=== PATIENT | male | born 1950 | race Caucasian/White ===

== ENCOUNTER 2019-04-10 12:02 | Outpatient (CLI) | payer BC ==
[~2019-04-10 12:02] MED LIST: ALBUTEROL NEB 2.5 MG/3 ML INH SCH
== END 2019-04-10 12:03 | disposition home or self-care (01) ==
LOC: RT 12:02
PROVIDERS: ATTEND Internal Medicine
DX: M31.31 Wegener's granulomatosis with renal involvement (principal)
CPT/HCPCS: 94010; 94729

== ENCOUNTER 2021-04-12 11:07 | Outpatient (CLI) | payer MEDICARE ==
[2021-04-12 11:20] LABS: HCT - HEMATOCRIT 23.8 % (42.0-52.0); HGB - HEMOGLOBIN 7.8 g/dL (14.0-18.0); MEAN CORPUSCULAR HEMOGLOBIN 31.2 pg (27.0-31.0); MEAN CORPUSCULAR HGB CONC 32.8 g/dL (32.0-36.0); MEAN CORPUSCULAR VOLUME 95.2 fL (80.0-94.0); MEAN PLATELET VOLUME 12.2 fL (7.4-11.4); NEUTROPHILS % (AUTO) 61.1 %; RED BLOOD COUNT 2.5 10^6/uL (4.70-6.10); RED CELL DISTRIBUTION WIDTH 14.8 % (12.0-15.0)
[2021-04-12 11:23] LABS: WHITE BLOOD COUNT 1.6 x10^3/uL (4.8-10.8)
== END 2021-04-12 11:08 | disposition home or self-care (01) ==
LOC: LAB.R 11:07
PROVIDERS: ATTEND Internal Medicine Hematology & Oncology
DX: D61.818 Other pancytopenia (principal)
CPT/HCPCS: 85027; 86850; 86900; 86901; 86920

== ENCOUNTER 2021-04-19 11:56 | Outpatient (CLI) | payer MEDICARE ==
[2021-04-19 12:08] LABS: EOSINOPHILS % (AUTO) 1.2 %; HCT - HEMATOCRIT 23.6 % (42.0-52.0); HGB - HEMOGLOBIN 7.7 g/dL (14.0-18.0); LYMPHOCYTES % (AUTO) 11.1 %; MEAN CORPUSCULAR HEMOGLOBIN 31.3 pg (27.0-31.0); MEAN CORPUSCULAR HGB CONC 32.6 g/dL (32.0-36.0); MEAN CORPUSCULAR VOLUME 95.9 fL (80.0-94.0); MEAN PLATELET VOLUME 10.5 fL (7.4-11.4); MONOCYTES % (AUTO) 14.6 %; NEUTROPHILS % (AUTO) 64.3 %; RED BLOOD COUNT 2.46 10^6/uL (4.70-6.10)
[2021-04-19 12:23] LABS: PLT - PLATELET COUNT 24 10^3/uL (130-450); WHITE BLOOD COUNT 1.7 x10^3/uL (4.8-10.8)
[2021-04-19 12:25] LABS: ABNORMAL LYMPHS % (MANUAL) 0 %
[2021-04-19 13:14] LABS: BAND NEUTROPHILS % (MANUAL) 6 %; LYMPHOCYTES # (MANUAL) 0.1 10^3/uL (1.5-3.5); LYMPHOCYTES % (MANUAL) 7 %; MONOCYTES # (MANUAL) 0.2 10^3/uL (0.0-1.0); NEUTROPHILS # (MANUAL) 1.4 10^3/uL (1.5-6.6); PLATELET ESTIMATE, MANUAL DECREASED (<130,000) (NORMAL); PLATELET MORPHOLOGY NORMAL APPEARANCE (NORMAL); RBC MORPHOLOGY (MULTIPLE) NORMAL APPEARANCE (NORMAL); REACTIVE LYMPHS % (MANUAL) 1 %
[2021-04-19 13:15] LABS: DIFFERENTIAL COMMENT MANUAL DIFFERENTIAL
== END 2021-04-19 11:57 | disposition home or self-care (01) ==
LOC: LAB 11:56
PROVIDERS: ATTEND Internal Medicine Hematology & Oncology
DX: D61.818 Other pancytopenia (principal)
CPT/HCPCS: 36415; 85025; 86850; 86870; 86900; 86901

== ENCOUNTER 2021-04-22 11:05 | Outpatient (CLI) | payer MEDICARE ==
[2021-04-22 11:16] LABS: EOSINOPHILS % (AUTO) 0.5 %; HCT - HEMATOCRIT 24.3 % (42.0-52.0); LYMPHOCYTES # (AUTO) 0.2 10^3/uL (1.5-3.5); LYMPHOCYTES % (AUTO) 10.5 %; MEAN CORPUSCULAR HEMOGLOBIN 31.4 pg (27.0-31.0); MEAN CORPUSCULAR HGB CONC 32.9 g/dL (32.0-36.0); MEAN CORPUSCULAR VOLUME 95.3 fL (80.0-94.0); MEAN PLATELET VOLUME 9.7 fL (7.4-11.4); MONOCYTES # (AUTO) 0.3 10^3/uL (0.0-1.0); MONOCYTES % (AUTO) 14.7 %; NEUTROPHILS # (AUTO) 1.3 10^3/uL (1.5-6.6); NEUTROPHILS % (AUTO) 66.4 %; NRBC ABSOLUTE COUNT (AUTO) 0.03 x10^3/uL; NUCLEATED RED BLOOD CELLS AUTO 1.6 /100WBC; RED BLOOD COUNT 2.55 10^6/uL (4.70-6.10); RED CELL DISTRIBUTION WIDTH 15.2 % (12.0-15.0)
[2021-04-22 11:25] LABS: WHITE BLOOD COUNT 1.9 x10^3/uL (4.8-10.8)
[2021-04-22 11:26] LABS: PLT - PLATELET COUNT 14 10^3/uL (130-450)
[2021-04-22 12:21] LABS: SLIDE REVIEW? Indicated
[2021-04-22 12:23] LABS: DIFFERENTIAL COMMENT MANUAL=AUTO DIFF; PLATELET ESTIMATE, MANUAL DECREASED (<130,000) (NORMAL); RBC MORPHOLOGY (MULTIPLE) NORMAL APPEARANCE (NORMAL)
== END 2021-04-22 11:06 | disposition home or self-care (01) ==
LOC: LAB.R 11:05
PROVIDERS: ATTEND Internal Medicine Hematology & Oncology
DX: D61.818 Other pancytopenia (principal)
CPT/HCPCS: 85025

== ENCOUNTER 2021-06-24 11:19 | Inpatient (IN) | payer MEDICARE, OTHER ==
[2021-06-24] MEDS ORDERED: ACETAMINOPHEN 500 MG TABLET PO STA (12:03)
--- NOTE | 2021-06-24 12:13 | ED Physician Documentation ---
History of Present Illness - Stated complaint Stated Complaint: FEVER - Chief complaint Chief Complaint: Fever - History obtained from History obtained from: Patient - Additonal information Additional information: 70-year-old gentleman with history of MDS/AML status post stem cell transplant at the [facility] in October of last year followed by Danyelle Valdes. He is otherwise generally healthy with the exception of some chemotherapy related cardiomyopathy, he does not know his ejection fraction. 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 He also has chronic kidney disease, diabetes, and a history of Danitza's granulomatosis. He has a right chest wall PowerPort in place. He developed a fever this morning, up to 101 at home and noted to be 39.6 Celsius here. He feels very well despite this, he denies sore throat, runny nose, cough, shortness of breath, abdominal pain, diarrhea, rash, or urinary complaints. Review of Systems Ten Systems: 10 systems reviewed and negative Constitutional: reports: Fever, Chills. denies: Myalgias, Fatigue Cardiac: denies: Chest pain / pressure, Palpitations Respiratory: denies: Dyspnea, Cough GI: denies: Abdominal Pain, Nausea, Vomiting, Diarrhea PD PAST MEDICAL HISTORY - Past Medical History Past Medical History: Yes Cardiovascular: Coronary artery disease, Atrial fibrillation Other Past Medical History: AML - Present Medications Home Medications: Ambulatory Orders Medication Instructions Recorded Confirmed Dapsone 50 mg PO BID 03/30/21 04/27/21 Metoprolol Succinate [Toprol Xl] 100 mg PO UD 03/30/21 06/15/21 Rosuvastatin Calcium [Crestor] 5 mg PO DAILY 03/30/21 04/27/21 Tamsulosin HCl [Flomax] 0.4 mg PO DAILY 03/30/21 04/27/21 Valacyclovir HCl [Valtrex] 500 mg PO BID 03/30/21 04/27/21 Voriconazole 250 mg PO Q12H 03/30/21 04/27/21 Cholecalciferol [Vitamin D3] 5,000 unit PO DAILY 03/31/21 04/27/21 Magnesium Oxide 1,200 mg PO TID 03/31/21 04/27/21 Omeprazole 20 mg PO DAILY 03/31/21 04/27/21 diltiaZEM CD [Cardizem Cd] 180 mg PO DAILY 03/31/21 04/27/21 glipiZIDE [Glucotrol] 2.5 mg PO DAILY 03/31/21 04/27/21 predniSONE [Deltasone] 30 mg PO DAILY 03/31/21 04/27/21 ursodioL [Ursodiol] 500 mg PO BIDWM 03/31/21 04/27/21 Calcium Carbonate/Vitamin D3 1 each PO 06/15/21 [Calcium 600-Vit D3 200 Tablet] Multivitamin/Iron/Folic Acid 1 each PO 06/15/21 [Certavite-Antioxidant Tablet] Ofloxacin [Ocuflox] 5 ml OP DAILY PM 06/15/21 06/15/21 Prednisolone Acetate/Pf 5 ml OP DAILY 06/15/21 06/15/21 [Prednisolone Acet 1% Eye Drop] - Allergies Allergies/Adverse Reactions: Allergies Allergy/AdvReac Type Severity Reaction Status Date / Time No Known Drug Allergies Allergy Verified 06/24/21 11:26 - Social History Does the pt smoke?: No Smoking Status: Never smoker PD ED PE NORMAL - Vitals Vital signs reviewed: Yes - General General: Alert and oriented X 3, No acute distress - HEENT HEENT: Other (Eye patch on the left eye) - Neck Neck: Supple, no meningeal sign, No bony TTP - Cardiac Cardiac: RRR, No murmur - Respiratory Respiratory: No respiratory distress, Clear bilaterally - Abdomen Abdomen: Normal bowel sounds, Soft, Non tender - Back Back: No CVA TTP, No spinal TTP - Derm Derm: No rash, Other (PowerPort right upper chest wall nontender and without signs of infection) - Extremities Extremities: No edema, No calf tenderness / cord - Neuro Neuro: Alert and oriented X 3, Normal speech - Psych Psych: Normal mood, Normal affect Results - Vitals Vitals: Vital Signs - 24 hr 06/24/21 06/24/21 06/24/21 11:26 11:38 13:35 Temperature 39.6 C H 38.3 C H Heart Rate 89 89 72 Respiratory 18 20 18 Rate Blood Pressure 131/61 H 94/52 L O2 Saturation 95 96 93 Oxygen O2 Source Room air - Labs Labs: Laboratory Tests 06/24/21 06/24/21 06/24/21 12:12 12:12 12:12 WBC 1.0 L* RBC 2.90 L Hgb 9.5 L Hct 28.1 L MCV 96.9 H MCH 32.8 H MCHC 33.8 RDW 23.9 H Plt Count 42 L MPV 10.3 Neut # (Auto) Not Reportable Lymph # (Auto) Not Reportable [place] # (Auto) Not Reportable Eos # (Auto) Not Reportable Baso # (Auto) Not Reportable Absolute Nucleated RBC Not Reportable Total Counted 100 Band Neuts % (Manual) 7 Abnorm Lymph % (Manual) 0 Metamyelocytes % 1 H Nucleated RBC % Not Reportable Neutrophils # (Manual) 0.4 L* Lymphocytes # (Manual) 0.4 L Monocytes # (Manual) 0.1 Eosinophils # (Manual) 0.0 Basophils # (Manual) 0.0 Differential Comment MANUAL DIFFERENTIAL Platelet Estimate DECREASED (<130,000) Platelet Morphology NORMAL APPEARANCE RBC Morph Micro Appear 2+ ANISOCYTOSIS Sodium 134 L Potassium 4.5 Chloride 99 L Carbon Dioxide 25 Anion Gap 10.0 BUN 34 H Creatinine 1.4 H Estimated GFR (MDRD) 50 L Glucose 96 Lactic Acid 0.9 Calcium 8.9 Total Bilirubin 0.8 AST 22 ALT 16 Alkaline Phosphatase 63 Total Protein 7.6 Albumin 3.7 Globulin 3.9 Albumin/Globulin Ratio 0.9 L Nasal Adenovirus (PCR) Nasal B. parapertussis DNA (PCR) Nasal Coronavir 229E PCR Nasal Coronavir HKU1 PCR Nasal Coronavir NL63 PCR Nasal Coronavir OC43 PCR Nasal Enterovir/Rhinovir PCR Nasal Influenza B PCR Nasal Influenza A PCR Nasal Parainfluen 1 PCR Nasal Parainfluen 2 PCR Nasal Parainfluen 3 PCR Nasal Parainfluen 4 PCR Nasal RSV (PCR) Nasal B.pertussis DNA PCR Nasal C.pneumoniae (PCR) Jamie Human Metapneumo PCR Nasal M.pneumoniae (PCR) Nasal SARS-CoV-2 (PCR) 06/24/21 12:42 WBC RBC Hgb Hct MCV MCH MCHC RDW Plt Count MPV Neut # (Auto) Lymph # (Auto) [place] # (Auto) Eos # (Auto) Baso # (Auto) Absolute Nucleated RBC Total Counted Band Neuts % (Manual) Abnorm Lymph % (Manual) Metamyelocytes % Nucleated RBC % Neutrophils # (Manual) Lymphocytes # (Manual) Monocytes # (Manual) Eosinophils # (Manual) Basophils # (Manual) Differential Comment Platelet Estimate Platelet Morphology RBC Morph Micro Appear Sodium Potassium Chloride Carbon Dioxide Anion Gap BUN Creatinine Estimated GFR (MDRD) Glucose Lactic Acid Calcium Total Bilirubin AST ALT Alkaline Phosphatase Total Protein Albumin Globulin Albumin/Globulin Ratio Nasal Adenovirus (PCR) NOT DETECTED Nasal B. parapertussis DNA (PCR) NOT DETECTED Nasal Coronavir 229E PCR NOT DETECTED Nasal Coronavir HKU1 PCR NOT DETECTED Nasal Coronavir NL63 PCR NOT DETECTED Nasal Coronavir OC43 PCR NOT DETECTED Nasal Enterovir/Rhinovir PCR NOT DETECTED Nasal Influenza B PCR NOT DETECTED Nasal Influenza A PCR NOT DETECTED Nasal Parainfluen 1 PCR NOT DETECTED Nasal Parainfluen 2 PCR NOT DETECTED Nasal Parainfluen 3 PCR NOT DETECTED Nasal Parainfluen 4 PCR NOT DETECTED Nasal RSV (PCR) NOT DETECTED Nasal B.pertussis DNA PCR NOT DETECTED Nasal C.pneumoniae (PCR) NOT DETECTED Jamie Human Metapneumo PCR NOT DETECTED Nasal M.pneumoniae (PCR) NOT DETECTED Nasal SARS-CoV-2 (PCR) NOT DETECTED - Rads (name of study) Single view chest x-ray is clear Radiology: EMP read contemporaneously PD MEDICAL DECISION MAKING - ED course ED course: 70-year-old gentleman presents with fever without a source up to 39.6 here with severe neutropenia with a ANC of 400. Spoke with Misbah León automation controls specialist for Danyelle Ortiz. Agrees with cefepime p BCx x 2. No need for vanco unless cultures + for gram positive. Spoke with Dr. Hall for admission approximately 2:[address] Owusu called back, I told her I had already spoken with Dr. Stapleton but Dr. Churchill had posed the question of whether he should have G- CSF and she opined that he should not based on the fact that he will probably need a bone marrow biopsy soon and that will make this uninterpretable. Plus it will not work. Departure - Departure Disposition: 66 [facility] DC/Xfer Clinical Impression: Febrile neutropenia Condition: Serious
[2021-06-24 12:21] LABS: HCT - HEMATOCRIT 28.1 % (42.0-52.0); HGB - HEMOGLOBIN 9.5 g/dL (14.0-18.0); LYMPHOCYTES % (AUTO) 31.7 %; MEAN CORPUSCULAR HEMOGLOBIN 32.8 pg (27.0-31.0); MEAN CORPUSCULAR HGB CONC 33.8 g/dL (32.0-36.0); MEAN CORPUSCULAR VOLUME 96.9 fL (80.0-94.0); MEAN PLATELET VOLUME 10.3 fL (7.4-11.4); NEUTROPHILS % (AUTO) 30.8 %; PLT - PLATELET COUNT 42 10^3/uL (130-450); RED CELL DISTRIBUTION WIDTH 23.9 % (12.0-15.0)
[2021-06-24 12:26] LABS: ABNORMAL LYMPHS % (MANUAL) 0 %
[2021-06-24] MEDS ORDERED: CEFEPIME 2 GM in SODIUM CHLORIDE 0.9% MINIBAG 100 ML IV STA (12:27)
[2021-06-24 12:34] LABS: ALBUMIN 3.7 g/dL (3.2-5.5); ALBUMIN/GLOBULIN RATIO 0.9 (1.0-2.2); BILIRUBIN,TOTAL 0.8 mg/dL (0.2-1.0); CALCIUM 8.9 mg/dL (8.5-10.3); CREATININE 1.4 mg/dL (0.6-1.2); POTASSIUM 4.5 mmol/L (3.5-5.0); TOTAL PROTEIN 7.6 g/dL (6.7-8.2)
[2021-06-24 12:44] LABS: BAND NEUTROPHILS % (MANUAL) 7 %; LYMPHOCYTES # (MANUAL) 0.4 10^3/uL (1.5-3.5); LYMPHOCYTES % (MANUAL) 41 %; METAMYELOCYTES % (MANUAL) 1 %; MONOCYTES # (MANUAL) 0.1 10^3/uL (0.0-1.0); NEUTROPHILS # (MANUAL) 0.4 10^3/uL (1.5-6.6)
[2021-06-24] MEDS ORDERED: SODIUM CHLORIDE 0.9% 1,000 ML IV STA (12:44)
[2021-06-24 12:45] LABS: DIFFERENTIAL COMMENT MANUAL DIFFERENTIAL; PLATELET ESTIMATE, MANUAL DECREASED (<130,000) (NORMAL); PLATELET MORPHOLOGY NORMAL APPEARANCE (NORMAL); RBC MORPHOLOGY (MULTIPLE) 2+ ANISOCYTOSIS (NORMAL)
--- NOTE | 2021-06-24 13:00 | XRAY Report ---
PROCEDURE: Chest 1 View X-Ray INDICATIONS: FUO TECHNIQUE: One view of the chest was acquired. COMPARISON: None. FINDINGS: SUPPORT DEVICES: Right CT injectable ti catheter with tip overlying the low SVC region. LUNGS/PLEURA: No focal consolidation, pleural effusion or space-occupying pneumothorax. MEDIASTINUM: The cardiomediastinal silhouette is within normal limits. BONES/SOFT TISSUES: No acute abnormality. IMPRESSION: 1.No acute cardiopulmonary abnormality. Reviewed by: Werner Harry MD on 06/24/2021 12:59 PM PDT Approved by: Werner Harry MD on 06/24/2021 12:59 PM PDT Station ID: [id number]
[2021-06-24 13:43] LABS: B. PARAPERTUSSIS- RESP PCR PAN NOT DETECTED; B. PERTUSSIS- RESP PCR PANEL NOT DETECTED; C. PNEUMONIAE- RESP PCR PANEL NOT DETECTED; CORONAVIRUS 229E-RESP PCR NOT DETECTED; CORONAVIRUS HKU1-RESP PCR NOT DETECTED; CORONAVIRUS NL63-RESP PCR NOT DETECTED; CORONAVIRUS OC43-RESP PCR NOT DETECTED; HUMAN METAPNEUMOVIRUS NOT DETECTED; INFLUENZA A- RESP PCR PANEL NOT DETECTED; INFLUENZA B - RESP PCR PANEL NOT DETECTED; M. PNEUMONIAE- RESP PCR PANEL NOT DETECTED; PARAINFLUENZA VIRUS 1 NOT DETECTED; PARAINFLUENZA VIRUS 2 NOT DETECTED; PARAINFLUENZA VIRUS 3 NOT DETECTED; PARAINFLUENZA VIRUS 4 NOT DETECTED; RHINOVIRUS/ENTEROVIRUS NOT DETECTED; RSV- RESP PCR PANEL NOT DETECTED; SARS-CoV-2 -RESP PCR PANEL NOT DETECTED
[2021-06-24] MEDS ORDERED: ACETAMINOPHEN 325 MG TABLET PO PRN (14:32)
[2021-06-24] MEDS ORDERED: ONDANSETRON 4 MG/2 ML VIAL IVP PRN (14:32)
[2021-06-24] MEDS ORDERED: METOPROLOL 5 MG/5 ML VIAL IVP PRN (14:41)
[2021-06-24] MEDS ORDERED: SODIUM CHLORIDE 0.9% 1,000 ML IV SCH (15:00)
--- NOTE | 2021-06-24 15:13 | HISTORY & PHYSICAL EXAMINATION ---
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 pt report he developed a fever this morning which was up to 102.7 at home. 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 pt report he has routinely blood work at [facility] [place] and blood transfusion as well. he had blood transfusion and plt transfusion on yesterday. In ER pt was found to have 39.6 degree equal to 103 Fah. Otherwise he feel fine and he denies chest pain, headache, shortness of breath, cough, wheezing, sore throat, runny nose, abdominal pain, nausea, vomiting and diarrhea, dysuria, " I feel very good." Chest x-ray show no acute cardiopulmonary abnormality. Routine laboratory testing in the ER significantly show WBC 1.0, hemoglobin 9.5, platelets 42, Creatinine 1.4. ER provider call patient's oncologist to ask whether add G-CSF for pt's low WBC. Oncologist advise not give pt G-CSF, based on the fact that pt will probably need a bone marrow biopsy soon and G-CSF will make the test result uninterpretable also it will not work. Oncologist also advise to add IV Cefepime at this point until blood culture reveal gram positive bacteria. Discussed the care goal with the patient, pt hope to have full code History - Past Medical History Cardiovascular: reports: Coronary artery disease, Atrial fibrillation MRSA Hx?: No Other Past Medical History: AML - Family & Social History Family History: Mother: , Father: Family History Comment/Other: Patient report his father from cancer at age 70. His mother from major heart problem at age 70 as well. Social History Notes: Patient report he never smoke, he has no alcohol or drug issue Meds/Allgy - Home Medications Home Medications: Ambulatory Orders Medication Instructions Recorded Confirmed Dapsone 50 mg PO BID 03/30/21 06/24/21 Rosuvastatin Calcium [Crestor] 5 mg PO DAILY 03/30/21 06/24/21 Tamsulosin HCl [Flomax] 0.4 mg PO DAILY 03/30/21 06/24/21 Valacyclovir HCl [Valtrex] 500 mg PO BID 03/30/21 06/24/21 Voriconazole 250 mg PO Q12H 03/30/21 06/24/21 Cholecalciferol [Vitamin D3] 5,000 unit PO DAILY 03/31/21 06/24/21 Magnesium Oxide 1,200 mg PO TID 03/31/21 06/24/21 Omeprazole 20 mg PO DAILY 03/31/21 04/27/21 diltiaZEM CD [Cardizem Cd] 180 mg PO DAILY 03/31/21 06/24/21 glipiZIDE [Glucotrol] 2.5 mg PO DAILY 03/31/21 04/27/21 predniSONE [Deltasone] 30 mg PO DAILY 03/31/21 04/27/21 ursodioL [Ursodiol] 500 mg PO BIDWM 03/31/21 06/24/21 Calcium Carbonate/Vitamin D3 1 each PO DAILY 06/15/21 06/24/21 [Calcium 600-Vit D3 200 Tablet] Multivitamin/Iron/Folic Acid 1 each PO DAILY 06/15/21 06/24/21 [Certavite-Antioxidant Tablet] Ofloxacin [Ocuflox] 5 ml OP DAILY PM 06/15/21 06/15/21 Prednisolone Acetate/Pf 5 ml OP DAILY 06/15/21 06/15/21 [Prednisolone Acet 1% Eye Drop] Metoprolol Succinate 100 mg PO BID 06/24/21 06/24/21 - Allergies Allergies/Adverse Reactions: Allergies Allergy/AdvReac Type Severity Reaction Status Date / Time No Known Drug Allergies Allergy Verified 06/24/21 11:26 Review of Systems - Constitutional Constitutional: reports: Fever. denies: Fatigue, Weakness - Eyes Eyes: denies: Pain - Ears, Nose & Throat Ears, Nose & Throat: reports: Other (pt report he can not hear at his right ear). denies: Ear pain - Cardiovascular Cariovascular: denies: Palpitations, Chest pain, Exertional dyspnea, Decr. exercise tolerance - Respiratory Respiratory: denies: Cough, Wheezing, SOB at rest, SOB with exertion - Gastrointestinal Gastrointestinal: denies: Abdominal pain, Diarrhea, Nausea, Vomiting - Genitourinary Genitourinary: denies: Dysuria - Musculoskeletal Musculoskeletal: denies: Muscle pain - Neurological Neurological: denies: Focal weakness, Headache, Dizziness, Numbness, Abnormal gait, Seizures, Slurred speech - Psychiatric Psychiatric: denies: Depression Exam - Vital Signs Vital Signs: Vital Signs x48h Temp Pulse Resp BP Pulse Ox 06/24/21 13:35 38.3 C H 72 18 94/52 L 93 06/24/21 11:38 89 20 96 06/24/21 11:26 39.6 C H 89 18 131/61 H 95 - Physical Exam General Appearance: positive: No acute distress, Alert. negative: Lethargic Eyes Bilateral: positive: Normal inspection, No lid inflammation ENT: positive: ENT inspection nml, No signs of dehydration. negative: Purulent nasal drainage Neck: positive: Nml inspection, Trachea midline. negative: Tracheal deviation Respiratory: positive: Chest non-tender, No respiratory distress. negative: Wheezes Cardiovascular: positive: Regular rate & rhythm, No murmur. negative: Tachycardia, Bradycardia, Systolic murmur Peripheral Pulses: positive: 2+ Abdomen: positive: Non-tender, Nml bowel sounds, No distention. negative: Tenderness Back: positive: Nml inspection Skin: positive: Color nml, Warm, Dry. negative: Cyanosis Extremities: positive: Non-tender, Full ROM, Nml appearance. negative: Pedal edema Neurologic/Psychiatric: positive: Oriented x3, Motor nml, Sensation nml. negative: Weakness, Sensory loss, Facial droop, Slurred/abnml speech, Depressed mood/affect Conclusion/Plan - Problem List (1) Febrile neutropenia Conclusion/Plan: Patient had fever at 103 degree in the ER. Blood culture was already tamie in the ER. Patient's WBC is 1.0, it is likely secondary to patient history of AMLMDS and stem cell transplant. Patient's oncologist advised no G-CSF for patient at this time. Oncologist also advised cefepime for patient until blood culture show positive for gram-positive bacteria. ER already had cefepime for patient, we will continue cefepime, blood cultures are pending, generally intravenous IV fluids for patient, Tylenol as needed for fever control. Resume patient home medication varacyclovir and voriconazole. (2) Pancytopenia Conclusion/Plan: it is likely secondary to patient's history of AMLMDS, stem cell transplant. Pt Had routinely and frequently blood transfusion, patient had blood transfusion on yesterday with platelets transfusion as well. No G-CSF for patient at this time per Oncologist advised. We will continue medical laboratory scientist, continue neutropenia isolation precaution. (3) AML (acute myeloblastic leukemia) Conclusion/Plan: pt has hx of AML/MDS and with stem cell Transplant on 2020. Patient was seen by Dr. Ortiz, his oncologist, 10 days ago. 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 We do not have echo service in the hospital now. Patient had fever. we will generally IV fluids for patient, precaution of fluids overloaded. Resume patient home medication metoprolol, statin. 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 We will have gentle intravenous IV fluids for patient, continue medical laboratory scientist (8) Diffuse pulmonary alveolar hemorrhage Conclusion/Plan: Patient has no pulmonary symptoms, no cough, no wheezing, no short of breathing, Chest x-ray show no pulmonary abnormal. patient is stable for respiratory s tatus, we will resume patient home medication Prednisone, patient may continue follow-up with his mens locker room attendant as outpatient - Lab Results Fish Bones: 06/24/21 12:12 06/24/21 12:12 Core Measures - Anticipated LOS I expect patient to be DC'd or transferred within 96 hours.: Yes - DVT/VTE - Prophylaxis VTE/DVT Device ordered at admit?: Yes VTE/DVT Prophylaxis med ordered at admit?: No
[2021-06-24] MEDS: SODIUM CHLORIDE 0.9% 1,000 ML IV SCH ×2 (17:26→21:39)
[2021-06-24] MEDS: SODIUM CHLORIDE FLUSH 0.9% 10 ML SYRINGE IVP SCH ×2 (17:26→23:23)
[2021-06-24] MEDS: INSULIN ASPART 300 UNIT/3 ML PEN SUBQ SCH ×2 (17:26→20:42)
[2021-06-24 19:47] LABS: BILIRUBIN,URINE NEGATIVE (NEGATIVE); GLUCOSE, URINE (UA) NEGATIVE (NEGATIVE); KETONES,URINE (UA) NEGATIVE (NEGATIVE); LEUKOCYTE ESTERASE, URINE NEGATIVE (NEGATIVE); NITRITE,URINE NEGATIVE (NEGATIVE); OCCULT BLOOD,URINE LARGE (NEGATIVE); PH,URINE 7.5 PH (5.0-7.5); PROTEIN,URINE 100 mg/dL (NEGATIVE); UROBILINOGEN,URINE 0.2 (NORMAL) E.U./dL (NORMAL)
[2021-06-24 19:48] LABS: BACTERIA,URINE None Seen /HPF (None Seen); CLARITY,URINE BLOODY (CLEAR); RBC,URINE TNTC /HPF (0-5); SQUAMOUS EPITHELIAL CELL,UR NONE SEEN (<= Few); WBC,URINE 0-3 /HPF (0-3)
[2021-06-24] MEDS: ATORVASTATIN 10 MG TABLET PO SCH (20:42)
[2021-06-24] MEDS: CEFEPIME 2 GM in SODIUM CHLORIDE 0.9% MINIBAG 100 ML IV SCH (20:42)
[2021-06-24] MEDS: valACYclovir 500 MG TABLET PO SCH (20:42)
[2021-06-24] MEDS ORDERED: METOPROLOL SUCCINATE 50 MG TABLET PO SCH (21:00)
[2021-06-24] MEDS: MAGNESIUM OXIDE 400 MG TABLET PO SCH (21:40)
[2021-06-24] MEDS ORDERED: CARBOXYMETHYLCELLULOSE OPHTH DROPS EACHEYE PRN (22:52)
[2021-06-25 05:24] LABS: BASOPHILS % (AUTO) 1.2 %; EOSINOPHILS % (AUTO) 2.4 %; HCT - HEMATOCRIT 23.1 % (42.0-52.0); HGB - HEMOGLOBIN 7.8 g/dL (14.0-18.0); LYMPHOCYTES % (AUTO) 37.3 %; MEAN CORPUSCULAR HEMOGLOBIN 33.3 pg (27.0-31.0); MEAN CORPUSCULAR HGB CONC 33.8 g/dL (32.0-36.0); MEAN CORPUSCULAR VOLUME 98.7 fL (80.0-94.0); MEAN PLATELET VOLUME 10.3 fL (7.4-11.4); MONOCYTES % (AUTO) 26.5 %; NEUTROPHILS % (AUTO) 31.4 %; RED BLOOD COUNT 2.34 10^6/uL (4.70-6.10); RED CELL DISTRIBUTION WIDTH 23.4 % (12.0-15.0)
[2021-06-25 05:31] LABS: MAGNESIUM 2.3 mg/dL (1.7-2.8)
[2021-06-25 05:39] LABS: PLT - PLATELET COUNT 32 10^3/uL (130-450); WHITE BLOOD COUNT 0.8 x10^3/uL (4.8-10.8)
[2021-06-25 05:41] LABS: ABNORMAL LYMPHS % (MANUAL) 0 %
[2021-06-25 05:59] LABS: BAND NEUTROPHILS % (MANUAL) 7 %; BASOPHILS % (MANUAL) 1 %; LYMPHOCYTES # (MANUAL) 0.3 10^3/uL (1.5-3.5); LYMPHOCYTES % (MANUAL) 37 %; METAMYELOCYTES % (MANUAL) 1 %; MONOCYTES # (MANUAL) 0.1 10^3/uL (0.0-1.0); NEUTROPHILS # (MANUAL) 0.3 10^3/uL (1.5-6.6); PLATELET MORPHOLOGY NORMAL APPEARANCE (NORMAL)
[2021-06-25 06:00] LABS: DIFFERENTIAL COMMENT MANUAL DIFFERENTIAL; PLATELET ESTIMATE, MANUAL DECREASED (<130,000) (NORMAL); WBC MORPHOLOGY (MULTIPLE) NORMAL APPEARANCE (NORMAL)
[2021-06-25] MEDS: MAGNESIUM OXIDE 400 MG TABLET PO SCH ×3 (06:25→21:38)
[2021-06-25] MEDS: PANTOPRAZOLE 40 MG TABLET PO SCH (06:25)
--- NOTE | 2021-06-25 09:12 | PROVIDER PROGRESS NOTE ---
Assessment/Plan - Problem List (1) Febrile neutropenia Assessment/Plan: 06/25 pt is comfortable sleeping. pt has no fever overnight. pt's blood culture is pending. we will continue IV antibiotics, resume pt's home meds for anti-virus and anti-fungal prophylaxis. pt's WBC is 0.8 on today, continue neutropenia protocol at the hospital. pt's port appear clean, disinfected. pt is at high risk of pro-infection and pt has significant immunocompromised. pt has hx of AML/MDS, stem cell transplant, and steroid treatment for his alveolar hemorrhage. Patient had fever at 103 degree in the ER. Blood culture was already tamie in the ER. Patient's WBC is 1.0, it is likely secondary to patient history of AMLMDS and stem cell transplant. Patient's oncologist advised no G-CSF for patient at this time. Oncologist also advised cefepime for patient until blood culture show positive for gram-positive bacteria. ER already had cefepime for patient, we will continue cefepime, blood cultures are pending, generally intravenous IV fluids for patient, Tylenol as needed for fever control. Resume patient home medication varacyclovir and voriconazole. (2) Pancytopenia Conclusion/Plan: 06/25 pt's HGB is 7.8. According to his oncologist recently recommendation. if HGB less than 8, require one unit of irradiated and leukocyte reduced RBC. his WBC is 0.8, no G-CSF for pt per oncologist's recommendation. Plt is 32, above 30, no plt transfusion by oncologist recommendation. pt present dehydration at the admission, no Lasix after transfusion at this point. it is likely secondary to patient's history of AMLMDS, stem cell transplant. Pt Had routinely and frequently blood transfusion, patient had blood transfusion on yesterday with platelets transfusion as well. No G-CSF for patient at this time per Oncologist advised. 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 (3) AML (acute myeloblastic leukemia) Conclusion/Plan: pt has hx of AML/MDS and with stem cell Transplant on 2020. Patient was seen by Dr. Ortiz, his oncologist, 10 days ago. pt may continue to followup with his oncologist (4) A-fib Conclusion/Plan: 06/25 because pt hx of complicated afib which was required Emergent cardioversion in , we will continue tele monitor pt, resume pt's home Cardizem, metoprolol, add IV of metoprolol as needed, continue vital sign closely monitor pt. 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 We do not have echo service in the hospital now. Patient had fever. we will generally IV fluids for patient, precaution of fluids overloaded. 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 creatinine is 1.0 today. hold IVF now, and we will have one unit of blood for pt, continue lab monitor Patient's creatinine is 1.4 on today, patient had creatinine 1.1 before. We will have gentle intravenous IV fluids for patient, continue laboratory clerk (8) Diffuse pulmonary alveolar hemorrhage Conclusion/Plan: Patient has no pulmonary symptoms, no cough, no wheezing, no short of breathing, Chest x-ray show no pulmonary abnormal. patient is stable for respiratory status, we will resume patient home medication Prednisone, patient may continue follow-up with his melter clerk as outpatient - Current Meds Current Meds: Current Medications Generic Name Dose Route Start Last Admin Trade Name Freq PRN Reason Stop Dose Admin Atorvastatin Calcium 10 mg 06/24/21 21:00 06/24/21 20:42 Atorvastatin 10 Mg Tablet PO 10 mg QPM JUJU Administration Cefepime HCl 2 gm/ Sodium 100 mls @ 200 mls/hr 06/24/21 21:00 06/24/21 21:40 Chloride IV Infused BID JUJU Infusion Insulin Aspart 1 - 5 unit 06/24/21 17:00 06/24/21 20:42 Insulin Aspart 300 Unit/3 Ml Pen SUBQ Not Given 0800,1200,1700,2100 JUJU Protocol Magnesium Oxide 1,200 mg 06/24/21 22:00 06/25/21 06:25 Magnesium Oxide 400 Mg Tablet PO 1,200 mg TID JUJU Administration Pantoprazole Sodium 40 mg 06/25/21 07:00 06/25/21 06:25 Pantoprazole 40 Mg Tablet PO 40 mg QDAC JUJU Administration Sodium Chloride 10 ml 06/24/21 17:00 06/24/21 23:23 Sodium Chloride Flush 0.9% 10 Ml Syringe IVP Not Given 0100,0900,1700 JUJU Ursodiol 500 mg 06/24/21 17:00 06/24/21 17:24 Ursodiol 250 Mg Tablet PO 500 mg BIDWM JUJU Administration Valacyclovir HCl 500 mg 06/24/21 21:00 06/24/21 20:42 Valacyclovir 500 Mg Tablet PO 500 mg BID JUJU Administration - Lab Result Fish Bone Diagrams: 06/25/21 05:07 06/25/21 05:07 - Additional Planning My Orders: My Active Orders 06/24/21 14:32 Activity Orders [RC] Q2HR IO [RC] IOSHIFT Incentive Spirometry - RT [RC] TID Initiate Bowel Care Protocol [RC] .protocol Initiate Line Care Protocol [RC] [facility] Initiate Personal Care Protoco [RC] .protocol Oxygen Therapy [RC] .PRN Telemetry- [RC] Q4HR Vital Signs [RC] Q4HR Acetaminophen [Tylenol] 650 mg PO Q4HR PRN Ondansetron Inj [Zofran Inj] 4 mg IVP Q6HR PRN Sodium Chloride Flush 0.9% [Normal Saline Flush 0.9%] 10 ml IVP PRN PRN Code Status [OTHERS] Routine Condition of Patient [OTHERS] Routine DVT Prophylaxis [OTHERS] Routine 06/24/21 14:36 SCDs [RC] [facility] 06/24/21 14:39 Blood Glucose Checks - Eating [RC] 0800,1200,1700,2100 Initiate Hypoglycemia Protocol [RC] .protocol 06/24/21 14:41 Metoprolol Inj [Lopressor Inj] 5 mg IVP Q6H PRN 06/24/21 Dinner Carb-controlled Diet [DIET] 06/24/21 16:48 Neutropenic Management [RC] [facility] 06/24/21 17:00 Insulin Aspart [NovoLOG] 1 - 5 unit SUBQ 0800,1200,1700,2100 Sodium Chloride Flush 0.9% [Normal Saline Flush 0.9%] 10 ml IVP 0100,0900,1700 ursodioL [Doc 250] 500 mg PO BIDWM 06/24/21 21:00 Atorvastatin [Lipitor] 10 mg PO QPM Cefepime 2 gm Sodium Chloride 0.9% Minibag [Normal Saline 0.9% Minibag] 100 ml IV BID valACYclovir [Valtrex] 500 mg PO BID 06/24/21 22:00 Magnesium Oxide [Mag Ox] 1,200 mg PO TID 06/24/21 22:52 Carboxymethylcellulose 1% Opht [Refresh 1% Ophth Drops] 1 drops EACHEYE PRN PRN 06/25/21 05:07 HEMOGLOBIN A1c% [CHEM] DAILYLAB 06/25/21 07:00 Pantoprazole [Protonix] 40 mg PO QDAC Patient Own Med [Patient Own Medication] 1 each PO BIDAC 06/25/21 08:00 Multivitamin W/Minerals [Theragran M] 1 tab PO DAILYWM predniSONE [Deltasone] 30 mg PO DAILYWM 06/25/21 08:03 Transfuse RBCs Leukoreduced [RC] .ONCE 06/25/21 08:13 RBC, LEUKOREDUCED Stat TYPE AND SCREEN Stat 06/25/21 09:00 Metoprolol Succinate [Toprol Xl] 100 mg PO BID Tamsulosin [Flomax] 0.4 mg PO DAILY diltiaZEM CD [Cardizem Cd] 180 mg PO DAILY 06/25/21 Lunch Neutropenic (Low Microbial) Diet [DIET] 06/26/21 05:00 BMP - BASIC METABOLIC PANEL [CHEM] DAILYLAB CBC - COMP BLD CT W/AUTO DIFF [HEME] DAILYLAB MAGNESIUM [CHEM] DAILYLAB 06/27/21 05:00 BMP - BASIC METABOLIC PANEL [CHEM] DAILYLAB CBC - COMP BLD CT W/AUTO DIFF [HEME] DAILYLAB MAGNESIUM [CHEM] DAILYLAB 06/28/21 05:00 BMP - BASIC METABOLIC PANEL [CHEM] DAILYLAB CBC - COMP BLD CT W/AUTO DIFF [HEME] DAILYLAB 06/29/21 05:00 BMP - BASIC METABOLIC PANEL [CHEM] DAILYLAB CBC - COMP BLD CT W/AUTO DIFF [HEME] DAILYLAB 06/30/21 05:00 BMP - BASIC METABOLIC PANEL [CHEM] DAILYLAB CBC - COMP BLD CT W/AUTO DIFF [HEME] DAILYLAB Subjective - Subjective Patient Reports: Resting Comfortably Objective Vital Signs: Vital Signs - 24 hr 06/24/21 06/24/21 06/24/21 11:26 11:38 13:35 Temperature 39.6 C H 38.3 C H Heart Rate 89 89 72 Heart Rate [ Brachial] Respiratory 18 20 18 Rate Blood Pressure 131/61 H 94/52 L Blood Pressure [Left Brachial artery] Blood Pressure [Right Brachial artery] O2 Saturation 95 96 93 06/24/21 06/24/21 06/24/21 15:00 15:42 16:02 Temperature 36.8 C Heart Rate 65 Heart Rate [ 70 Brachial] Respiratory 16 16 Rate Blood Pressure 99/54 L Blood Pressure 99/56 L [Left Brachial artery] Blood Pressure [Right Brachial artery] O2 Saturation 93 97 06/24/21 06/24/21 06/24/21 16:44 20:36 23:24 Temperature 36.5 C 36.4 C L 36.5 C Heart Rate Heart Rate [ 66 64 73 Brachial] Respiratory 14 16 16 Rate Blood Pressure Blood Pressure 102/54 L 112/60 [Left Brachial artery] Blood Pressure 112/64 [Right Brachial artery] O2 Saturation 95 99 96 06/25/21 06/25/21 05:30 07:31 Temperature 36.6 C 36.5 C Heart Rate Heart Rate [ 66 71 Brachial] Respiratory 18 16 Rate Blood Pressure Blood Pressure 109/64 [Left Brachial artery] Blood Pressure 110/66 [Right Brachial artery] O2 Saturation 97 97 Oxygen O2 Source Room air I&O (Last 24 Hrs): Intake and Output Totals x24h 06/23/21 06/24/21 06/25/21 23:59 23:59 23:59 Intake Total 2130 1730 Balance 2130 1730 General: Alert, Oriented x3, Cooperative, No acute distress HEENT: Atraumatic Neck: Supple Lymphatic: no adenopathy Neuro: Alert, Non Focal, Oriented Times 3 Cardiovascular: Regular rate, Normal S1, Normal S2 Respiratory: Chest non-tender, No respiratory distress Abdomen: Normal bowel sounds, Soft Extremities: Normal pulses - Results Results: Laboratory Results WBC 0.8 x10^3/uL (4.8-10.8) L* 06/25/21 05:07 RBC 2.34 10^6/uL (4.70-6.10) L 06/25/21 05:07 Hgb 7.8 g/dL (14.0-18.0) L 06/25/21 05:07 Hct 23.1 % (42.0-52.0) L 06/25/21 05:07 MCV 98.7 fL (80.0-94.0) H 06/25/21 05:07 MCH 33.3 pg (27.0-31.0) H 06/25/21 05:07 MCHC 33.8 g/dL (32.0-36.0) 06/25/21 05:07 RDW 23.4 % (12.0-15.0) H 06/25/21 05:07 Plt Count 32 10^3/uL (130-450) L* 06/25/21 05:07 MPV 10.3 fL (7.4-11.4) 06/25/21 05:07 Neut # (Auto) Not Reportable 06/25/21 05:07 Lymph # (Auto) Not Reportable 06/25/21 05:07 [place] # (Auto) Not Reportable 06/25/21 05:07 Eos # (Auto) Not Reportable 06/25/21 05:07 Baso # (Auto) Not Reportable 06/25/21 05:07 Absolute Nucleated RBC Not Reportable 06/25/21 05:07 Total Counted 100 06/25/21 05:07 Band Neuts % (Manual) 7 % (0-10) 06/25/21 05:07 Abnorm Lymph % (Manual) 0 % 06/25/21 05:07 Metamyelocytes % 1 % (-0) H 06/25/21 05:07 Nucleated RBC % Not Reportable 06/25/21 05:07 Neutrophils # (Manual) 0.3 10^3/uL (1.5-6.6) L* 06/25/21 05:07 Lymphocytes # (Manual) 0.3 10^3/uL (1.5-3.5) L 06/25/21 05:07 Monocytes # (Manual) 0.1 10^3/uL (0.0-1.0) 06/25/21 05:07 Eosinophils # (Manual) 0.0 10^3/uL (0-0.7) 06/25/21 05:07 Basophils # (Manual) 0.0 10^3/uL (0-0.1) 06/25/21 05:07 Differential Comment MANUAL DIFFERENTIAL 06/25/21 05:07 WBC Morphology NORMAL APPEARANCE (NORMAL) 06/25/21 05:07 Platelet Estimate DECREASED (<130,000) (NORMAL) 06/25/21 05:07 Platelet Morphology NORMAL APPEARANCE (NORMAL) 06/25/21 05:07 RBC Morph Micro Appear 1+ MICROCYTOSIS (NORMAL) 2+ ANISOCYTOSIS (NORMAL) 06/25/21 05:07 RBC Morph Micro Appear 1+ MICROCYTOSIS (NORMAL) 2+ ANISOCYTOSIS (NORMAL) 06/25/21 05:07 Sodium 137 mmol/L (135-145) 06/25/21 05:07 Potassium 4.0 mmol/L (3.5-5.0) 06/25/21 05:07 Chloride 104 mmol/L (101-111) 06/25/21 05:07 Carbon Dioxide 25 mmol/L (21-32) 06/25/21 05:07 Anion Gap 8.0 (6-13) 06/25/21 05:07 BUN 29 mg/dL (6-20) H 06/25/21 05:07 Creatinine 1.0 mg/dL (0.6-1.2) 06/25/21 05:07 Estimated GFR (MDRD) 74 (>89) L 06/25/21 05:07 Glucose 88 mg/dL (70-100) 06/25/21 05:07 POC Whole Bld Glucose 112 mg/dL (70 - 100) H 06/25/21 07:22 Lactic Acid 0.9 mmol/L (0.5-2.2) 06/24/21 12:12 Calcium 8.0 mg/dL (8.5-10.3) L 06/25/21 05:07 Magnesium 2.3 mg/dL (1.7-2.8) 06/25/21 05:07 Total Bilirubin 0.8 mg/dL (0.2-1.0) 06/24/21 12:12 AST 22 IU/L (10-42) 06/24/21 12:12 ALT 16 IU/L (10-60) 06/24/21 12:12 Alkaline Phosphatase 63 IU/L (42-121) 06/24/21 12:12 Total Protein 7.6 g/dL (6.7-8.2) 06/24/21 12:12 Albumin 3.7 g/dL (3.2-5.5) 06/24/21 12:12 Globulin 3.9 g/dL (2.1-4.2) 06/24/21 12:12 Albumin/Globulin Ratio 0.9 (1.0-2.2) L 06/24/21 12:12 Urine Color RED/BLOODY 06/24/21 19:08 Urine Clarity BLOODY (CLEAR) 06/24/21 19:08 Urine pH 7.5 PH (5.0-7.5) 06/24/21 19:08 Ur Specific [place] 1.020 (1.002-1.030) 06/24/21 19:08 Urine Protein 100 mg/dL (NEGATIVE) H 06/24/21 19:08 Urine Glucose (UA) NEGATIVE mg/dL (NEGATIVE) 06/24/21 19:08 Urine Ketones NEGATIVE mg/dL (NEGATIVE) 06/24/21 19:08 Urine Occult Blood LARGE (NEGATIVE) H 06/24/21 19:08 Urine Nitrite NEGATIVE (NEGATIVE) 06/24/21 19:08 Urine Bilirubin NEGATIVE (NEGATIVE) 06/24/21 19:08 Urine Urobilinogen 0.2 (NORMAL) E.U./dL (NORMAL) 06/24/21 19:08 Ur Leukocyte Esterase NEGATIVE (NEGATIVE) 06/24/21 19:08 Urine RBC TNTC /HPF (0-5) H 06/24/21 19:08 Urine WBC 0-3 /HPF (0-3) 06/24/21 19:08 Ur Squamous Epith Cells NONE SEEN (<= Few) 06/24/21 19:08 Urine Bacteria None Seen /HPF (None Seen) 06/24/21 19:08 Urine Culture Comments NOT INDICATED 06/24/21 19:08 Nasal Adenovirus (PCR) NOT DETECTED 06/24/21 12:42 Nasal B. parapertussis DNA (PCR) NOT DETECTED 06/24/21 12:42 Nasal Coronavir 229E PCR NOT DETECTED 06/24/21 12:42 Nasal Coronavir HKU1 PCR NOT DETECTED 06/24/21 12:42 Nasal Coronavir NL63 PCR NOT DETECTED 06/24/21 12:42 Nasal Coronavir OC43 PCR NOT DETECTED 06/24/21 12:42 Nasal Enterovir/Rhinovir PCR NOT DETECTED 06/24/21 12:42 Nasal Influenza B PCR NOT DETECTED 06/24/21 12:42 Nasal Influenza A PCR NOT DETECTED 06/24/21 12:42 Nasal Parainfluen 1 PCR NOT DETECTED 06/24/21 12:42 Nasal Parainfluen 2 PCR NOT DETECTED 06/24/21 12:42 Nasal Parainfluen 3 PCR NOT DETECTED 06/24/21 12:42 Nasal Parainfluen 4 PCR NOT DETECTED 06/24/21 12:42 Nasal RSV (PCR) NOT DETECTED 06/24/21 12:42 Nasal B.pertussis DNA PCR NOT DETECTED 06/24/21 12:42 Nasal C.pneumoniae (PCR) NOT DETECTED 06/24/21 12:42 Jamie Human Metapneumo PCR NOT DETECTED 06/24/21 12:42 Nasal M.pneumoniae (PCR) NOT DETECTED 06/24/21 12:42 Nasal SARS-CoV-2 (PCR) NOT DETECTED 06/24/21 12:42 ABX Reporting Has patient been on IV antibiotics over the past 48 hours?: Yes Current Medications - Current Medications Current Medications: Active Medications Acetaminophen (Acetaminophen 325 Mg Tablet) 650 mg PO Q4HR PRN PRN Reason: Pain 1 to 4, or Fever Atorvastatin Calcium (Atorvastatin 10 Mg Tablet) 10 mg PO QPM [facility] Last Admin: 06/24/21 20:42 Dose: 10 mg Carboxymethylcellulose (Carboxymethylcellulose Ophth Drops) 1 drops EACHEYE PRN PRN PRN Reason: Dry Eye Diltiazem HCl (Diltiazem Cd 180 Mg Capsule) 180 mg PO DAILY [facility] Cefepime HCl 2 gm/ Sodium (Chloride) 100 mls @ 200 mls/hr IV BID [facility] Last Infusion: 06/24/21 21:40 Dose: Infused Insulin Aspart (Insulin Aspart 300 Unit/3 Ml Pen) 1 - 5 unit SUBQ 0800,1200,1700,2100 [facility]; Protocol Last Admin: 06/24/21 20:42 Dose: Not Given Magnesium Oxide (Magnesium Oxide 400 Mg Tablet) 1,200 mg PO TID [facility] Last Admin: 06/25/21 06:25 Dose: 1,200 mg Metoprolol Succinate (Metoprolol Succinate 50 Mg Tablet) 100 mg PO BID [facility] Metoprolol Tartrate (Metoprolol 5 Mg/5 Ml Vial) 5 mg IVP Q6H PRN PRN Reason: Tachycardia Multivitamins/Minerals (Multivitamin W/Minerals Tablet) 1 tab PO DAILYWM [facility] Ondansetron HCl (Ondansetron 4 Mg/2 Ml Vial) 4 mg IVP Q6HR PRN PRN Reason: Nausea / Vomiting Pantoprazole Sodium (Pantoprazole 40 Mg Tablet) 40 mg PO QDAC [facility] Last Admin: 06/25/21 06:25 Dose: 40 mg Patient Own Med: Voriconazole [Vfend] 200 Mg Tablet 1 each PO BIDAC [facility] Prednisone (Prednisone 20 Mg Tablet) 30 mg PO DAILYWM [facility] Sodium Chloride (Sodium Chloride Flush 0.9% 10 Ml Syringe) 10 ml IVP PRN PRN PRN Reason: NEEDED PER PROVIDER ORDERS Sodium Chloride (Sodium Chloride Flush 0.9% 10 Ml Syringe) 10 ml IVP 0100,0900,1700 [facility] Last Admin: 06/24/21 23:23 Dose: Not Given Tamsulosin HCl (Tamsulosin 0.4 Mg Capsule) 0.4 mg PO DAILY [facility] Ursodiol (Ursodiol 250 Mg Tablet) 500 mg PO BIDWM [facility] Last Admin: 06/24/21 17:24 Dose: 500 mg Valacyclovir HCl (Valacyclovir 500 Mg Tablet) 500 mg PO BID [facility] Last Admin: 06/24/21 20:42 Dose: 500 mg Dapsone 50 mg PO BID 03/30/21 Rosuvastatin Calcium [Crestor] 5 mg PO DAILY 03/30/21 Tamsulosin HCl [Flomax] 0.4 mg PO DAILY 03/30/21 Valacyclovir HCl [Valtrex] 500 mg PO BID 03/30/21 Voriconazole 250 mg PO Q12H 03/30/21 Cholecalciferol [Vitamin D3] 5,000 unit PO DAILY 03/31/21 Magnesium Oxide 1,200 mg PO TID 03/31/21 Omeprazole 20 mg PO DAILY 03/31/21 diltiaZEM CD [Cardizem Cd] 180 mg PO DAILY 03/31/21 glipiZIDE [Glucotrol] 2.5 mg PO DAILY 03/31/21 predniSONE [Deltasone] 30 mg PO DAILY 03/31/21 ursodioL [Ursodiol] 500 mg PO BIDWM 03/31/21 Calcium Carbonate/Vitamin D3 [Calcium 600-Vit D3 200 Tablet] 1 each PO DAILY 06/15/21 Multivitamin/Iron/Folic Acid [Certavite-Antioxidant Tablet] 1 each PO DAILY 06/15/21 Ofloxacin [Ocuflox] 5 ml OP DAILY PM 06/15/21 Prednisolone Acetate/Pf [Prednisolone Acet 1% Eye Drop] 5 ml OP DAILY 06/15/21 Metoprolol Succinate 100 mg PO BID 06/24/21
[2021-06-25] MEDS: INSULIN ASPART 300 UNIT/3 ML PEN SUBQ SCH ×4 (10:38→21:42)
[2021-06-25] MEDS: CEFEPIME 2 GM in SODIUM CHLORIDE 0.9% MINIBAG 100 ML IV SCH ×2 (10:39→20:43)
[2021-06-25] MEDS: predniSONE 20 MG TABLET PO SCH (10:43)
[2021-06-25] MEDS: METOPROLOL SUCCINATE 50 MG TABLET PO SCH ×2 (10:44→21:37)
[2021-06-25] MEDS: diltiaZEM CD 180 MG CAPSULE PO SCH (10:44)
[2021-06-25] MEDS: valACYclovir 500 MG TABLET PO SCH ×2 (10:45→20:42)
[2021-06-25] MEDS: MULTIVITAMIN W/MINERALS TABLET PO SCH (10:45)
[2021-06-25] MEDS: TAMSULOSIN 0.4 MG CAPSULE PO SCH (10:46)
--- NOTE | 2021-06-25 11:27 | PHARMACY PROGRESS NOTE ---
- Best Possible Medication History Admit Date and Time: 06/24/21 1432 Processed by: Pharmacy Medication History completed: Yes Secondary Source(s): Pharmacy records, Insurance records As the person ultimately responsible for medication therapy, providers are able to order a medication from an existing home medication list in [facility] via the "Reconcile Routine" prior to Confirmation of that medication by student support advisor. Such practice is discouraged except when the physician, in their clinical judgment, deems that a medical need exists for a medication without regard to previous use.
[2021-06-25] MEDS: VORICONAZOLE 200 MG PO SCH ×2 (12:41→16:10)
[2021-06-25] MEDS: VORICONAZOLE 50 MG PO SCH ×2 (12:42→16:10)
[2021-06-25] MEDS: SODIUM CHLORIDE FLUSH 0.9% 10 ML SYRINGE IVP SCH ×3 (14:40→21:43)
[2021-06-25] MEDS: ATORVASTATIN 10 MG TABLET PO SCH (20:42)
[2021-06-25] MEDS: SODIUM CHLORIDE FLUSH 0.9% 10 ML SYRINGE IVP PRN (20:44)
[2021-06-26] MEDS: SODIUM CHLORIDE FLUSH 0.9% 10 ML SYRINGE IVP PRN (05:04)
[2021-06-26 05:25] LABS: BASOPHILS % (AUTO) 1.3 %; EOSINOPHILS % (AUTO) 2.5 %; HCT - HEMATOCRIT 26.7 % (42.0-52.0); HGB - HEMOGLOBIN 9.3 g/dL (14.0-18.0); MEAN CORPUSCULAR HEMOGLOBIN 33.7 pg (27.0-31.0); MEAN CORPUSCULAR HGB CONC 34.8 g/dL (32.0-36.0); MEAN CORPUSCULAR VOLUME 96.7 fL (80.0-94.0); MEAN PLATELET VOLUME 9.8 fL (7.4-11.4); MONOCYTES % (AUTO) 26.6 %; NEUTROPHILS % (AUTO) 25.3 %; RED BLOOD COUNT 2.76 10^6/uL (4.70-6.10)
[2021-06-26 05:34] LABS: CALCIUM 8.3 mg/dL (8.5-10.3); CREATININE 0.9 mg/dL (0.6-1.2); MAGNESIUM 2.2 mg/dL (1.7-2.8); POTASSIUM 3.9 mmol/L (3.5-5.0)
[2021-06-26 05:46] LABS: PLT - PLATELET COUNT 28 10^3/uL (130-450); WHITE BLOOD COUNT 0.8 x10^3/uL (4.8-10.8)
[2021-06-26 05:48] LABS: ABNORMAL LYMPHS % (MANUAL) 0 %
[2021-06-26 05:53] LABS: BAND NEUTROPHILS % (MANUAL) 4 %; LYMPHOCYTES # (MANUAL) 0.4 10^3/uL (1.5-3.5); LYMPHOCYTES % (MANUAL) 46 %; MONOCYTES # (MANUAL) 0.2 10^3/uL (0.0-1.0); NEUTROPHILS # (MANUAL) 0.3 10^3/uL (1.5-6.6)
[2021-06-26 05:54] LABS: DIFFERENTIAL COMMENT MANUAL DIFFERENTIAL; PLATELET ESTIMATE, MANUAL DECREASED (<130,000) (NORMAL); PLATELET MORPHOLOGY NORMAL APPEARANCE (NORMAL); RBC MORPHOLOGY (MULTIPLE) 2+ ANISOCYTOSIS (NORMAL); WBC MORPHOLOGY (MULTIPLE) NORMAL APPEARANCE (NORMAL)
[2021-06-26] MEDS: MAGNESIUM OXIDE 400 MG TABLET PO SCH (06:14)
[2021-06-26] MEDS: PANTOPRAZOLE 40 MG TABLET PO SCH (06:14)
[2021-06-26] MEDS: VORICONAZOLE 200 MG PO SCH (06:17)
[2021-06-26] MEDS: VORICONAZOLE 50 MG PO SCH (06:18)
[2021-06-26] MEDS: MULTIVITAMIN W/MINERALS TABLET PO SCH (07:51)
[2021-06-26] MEDS: predniSONE 20 MG TABLET PO SCH (07:51)
[2021-06-26] MEDS: diltiaZEM CD 180 MG CAPSULE PO SCH (07:52)
[2021-06-26] MEDS: valACYclovir 500 MG TABLET PO SCH (07:52)
[2021-06-26] MEDS: TAMSULOSIN 0.4 MG CAPSULE PO SCH (07:52)
[2021-06-26] MEDS: CEFEPIME 2 GM in SODIUM CHLORIDE 0.9% MINIBAG 100 ML IV SCH (07:54)
[2021-06-26] MEDS: METOPROLOL SUCCINATE 50 MG TABLET PO SCH (07:55)
[2021-06-26] MEDS: SODIUM CHLORIDE FLUSH 0.9% 10 ML SYRINGE IVP SCH ×2 (07:55→12:44)
[2021-06-26] MEDS: INSULIN ASPART 300 UNIT/3 ML PEN SUBQ SCH (08:34)
--- NOTE | 2021-06-26 09:06 | Discharge Plan ---
Discharge Plan Problem Reviewed?: Yes Disposition: Home, Self Care Condition: Stable Prescriptions: levoFLOXacin [Levaquin] 750 mg PO QD 5 Days #15 tablet Diet: Diabetic Activity Restrictions: Activity as Tolerated Health Concerns: You were admitted to the hospital because of neutropenic fever. We started you on IV antibiotics and will look for potential source of infection. Everything h as come back negative and you have now been fever free for 48 hours. We will be discharging you home with an oral antibiotic called Levaquin to take for 5 more days. Please follow-up with your oncologist this week. Plan of Treatment: Please take the Levaquin once a day for 5 more days. Please continue with the other prophylactic medications you have previously prescribed such as the for your consult, valacyclovir, ursodiol. We did give you blood and platelet transfusion while you were hospitalized. Please continue to follow-up with Dr. Ortiz for monitoring of your blood counts. Assessment: The patient expressed understanding of the treatment plan. Additional Instructions or Follow Up instructions: Please follow-up with Dr. Ortiz this week. Please return to the emergency department if you develop any fevers, chills, dyspnea. No Smoking: If you smoke, Please STOP! Call for help. Follow-up with: Milton Ortiz MD [Provider Admit Priv/Credential] -
--- NOTE | 2021-06-26 09:13 | DISCHARGE SUMMARY ---
Discharge Summary Admit Date: 06/24/21 Discharge Date: 06/26/21 Discharging Provider: Brodie Hall Code Status: Attempt Resuscitation Condition at Discharge: Stable Discharge Disposition: 01 Home, Self Care - DIAGNOSES Admission Diagnoses: Febrile neutropenia Pancytopenia AML A. fib Diabetes Systolic heart failure Acute on chronic kidney injury Diffuse pulmonary alveolar hemorrhage Discharge Diagnoses with Status of Each Condition: Neutropenic fever - resolved. AML - stable. Pancytopenia - stable. Atrial fibrillation - stable. Type 2 diabetes mellitus - stable. Chronic systolic heart failure - stable. Acute kidney injury - resolved. History of diffuse pulmonary alveolar hemorrhage - stable. 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 pt report he developed a fever this morning which was up to 102.7 at home. 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 pt report he has routinely blood work at [facility] and blood transfusion as well. he had blood transfusion and plt transfusion on yesterday. In ER pt was found to have 39.6 degree equal to 103 Fah. Otherwise he feel fine and he denies chest pain, headache, shortness of breath, cough, wheezing, sore throat, runny nose, abdominal pain, nausea, vomiting and diarrhea, dysuria, " I feel very good." Chest x-ray show no acute cardiopulmonary abnormality. Routine laboratory testing in the ER significantly show WBC 1.0, hemoglobin 9.5, platelets 42, Creatinine 1.4. ER provider call patient's oncologist to ask whether add G-CSF for pt's low WBC. Oncologist advise not give pt G-CSF, based on the fact that pt will probably need a bone marrow biopsy soon and G-CSF will make the test result uninterpretable also it will not work. Oncologist also advise to add IV Cefepime at this point until blood culture reveal gram positive bacteria. Discussed the care goal with the patient, pt hope to have full code - HOSPITAL COURSE Hospital Course: The patient was admitted for neutropenic fever and mild acute kidney injury. He was treated with IV fluids and empiric antibiotics with cefepime IV. There was no obvious source of infection. His urinalysis and chest x-ray were unremarkab le. Blood cultures have been negative for 48 hours. The Port-A-Cath line was without erythema or tenderness. He remained fever free over the next 48 hours. He still remained neutropenic as well as anemic and thrombocytopenic. He was transfused 1 unit of packed red blood cell and platelets as recommended by his oncologist for hemoglobin less than 8 and a platelet count less than 30. The patient felt quite well and requested that he be discharged home if possible. I spoke with the on-call oncologist and they felt it was reasonable to discharge the patient home despite him still being neutropenic with an ANC of 0.3 given he has been fever free without evidence of infection. I discharged the patient on Levaquin 750 mg daily for 5 more days. There were no other changes made to his medications and he will continue the other prophylactic medication such as voriconazole, dapsone, valacyclovir. He will follow up with his oncologist this week. He was encouraged to return to the emergency department if he develops any fever, chills, dyspnea. - ALLERGIES Allergies/Adverse Reactions: Allergies Allergy/AdvReac Type Severity Reaction Status Date / Time No Known Drug Allergies Allergy Verified 06/24/21 11:26 - MEDICATIONS Home Medications: Ambulatory Orders Medication Instructions Recorded Confirmed Dapsone 50 mg PO BID 03/30/21 06/24/21 Rosuvastatin Calcium [Crestor] 5 mg PO DAILY 03/30/21 06/24/21 Tamsulosin HCl [Flomax] 0.4 mg PO DAILY 03/30/21 06/24/21 Valacyclovir HCl [Valtrex] 500 mg PO BID 03/30/21 06/24/21 Voriconazole 250 mg PO Q12H 03/30/21 06/24/21 Cholecalciferol [Vitamin D3] 5,000 unit PO DAILY 03/31/21 06/24/21 Magnesium Oxide 1,200 mg PO TID 03/31/21 06/24/21 diltiaZEM CD [Cardizem Cd] 180 mg PO DAILY 03/31/21 06/24/21 glipiZIDE [Glucotrol] 2.5 mg PO DAILY 03/31/21 06/25/21 predniSONE [Deltasone] 30 mg PO DAILY 03/31/21 06/25/21 ursodioL [Ursodiol] 500 mg PO BIDWM 03/31/21 06/24/21 Calcium Carbonate/Vitamin D3 1 each PO DAILY 06/15/21 06/24/21 [Calcium 600-Vit D3 200 Tablet] Multivitamin/Iron/Folic Acid 1 each PO DAILY 06/15/21 06/24/21 [Certavite-Antioxidant Tablet] Metoprolol Succinate 100 mg PO BID 06/24/21 06/24/21 levoFLOXacin [Levaquin] 750 mg PO QD 5 Days #15 tablet 06/26/21 - PHYSICAL EXAM AT DISCHARGE General Appearance: positive: No acute distress Eyes Bilateral: positive: Other (Left eye patch in place) ENT: positive: ENT inspection nml Neck: positive: Nml inspection Respiratory: positive: No respiratory distress. negative: Wheezes, Rales Cardiovascular: positive: Regular rate & rhythm, No murmur, Other (Port-A-Cath in place over the right chest wall is without erythema or tenderness). negative: Tachycardia Abdomen: positive: Non-tender, No distention. negative: Tenderness Skin: positive: Warm Extremities: positive: No pedal edema Neurologic/Psychiatric: positive: Motor nml. negative: Disoriented to person, Disoriented to place, Disoriented to time Physical Exam Other/Comments: Vital Signs - 24 hr 06/25/21 06/25/21 06/26/21 21:00 23:32 05:12 Temperature 36.8 C 36.9 C 36.8 C Heart Rate Heart Rate [ 67 64 61 Brachial] Respiratory 18 18 17 Rate Blood Pressure Blood Pressure 117/68 102/52 L [Left Brachial artery] Blood Pressure 118/57 L [Right Brachial artery] O2 Saturation 96 97 97 06/26/21 06/26/21 06/26/21 07:42 11:15 12:00 Temperature 36.4 C L 36.7 C 36.9 C Heart Rate 94 Heart Rate [ 55 L 74 Brachial] Respiratory 18 18 18 Rate Blood Pressure 114/68 Blood Pressure 118/66 116/67 [Left Brachial artery] Blood Pressure [Right Brachial artery] O2 Saturation 98 94 06/26/21 12:30 Temperature 36.3 C L Heart Rate 72 Heart Rate [ Brachial] Respiratory 18 Rate Blood Pressure 119/72 Blood Pressure [Left Brachial artery] Blood Pressure [Right Brachial artery] O2 Saturation Oxygen O2 Source Room air - LABS Result Diagrams: 06/26/21 05:07 06/26/21 05:07 - DIAGNOSTIC IMAGING Diagnostic Imaging Results: Final report reviewed - FOLLOW UP Follow Up: He will be following up with his oncologist this week.. - TIME SPENT Time Spent in Discharge (Minutes): 37
[2021-06-26 12:43] VITALS: BP 119/72
== END 2021-06-26 13:13 | disposition home or self-care (01) | DRG 809 ==
LOC: ED 11:19 → MS2 14:32
PROVIDERS: ADMIT Nurse Practitioner Gerontology; ATTEND Internal Medicine
PROC: 30233R1 Transfusion of Nonautologous Platelets into Peripheral Vein, Percutaneous Approach (ICD-10-PCS; principal; 2021-06-26)
DX: D70.9 Neutropenia, unspecified (principal); C92.00 Acute myeloblastic leukemia, not having achieved remission; I50.22 Chronic systolic (congestive) heart failure; N17.9 Acute kidney failure, unspecified; I48.92 Unspecified atrial flutter; Z20.822 Contact with and (suspected) exposure to COVID-19; I42.7 Cardiomyopathy due to drug and external agent; M31.30 Wegener's granulomatosis without renal involvement; R04.89 Hemorrhage from other sites in respiratory passages; I25.10 Atherosclerotic heart disease of native coronary artery without angina pectoris; R50.81 Fever presenting with conditions classified elsewhere; D61.818 Other pancytopenia; D46.9 Myelodysplastic syndrome, unspecified; I48.91 Unspecified atrial fibrillation; E11.22 Type 2 diabetes mellitus with diabetic chronic kidney disease; N18.9 Chronic kidney disease, unspecified; Z79.84 Long term (current) use of oral hypoglycemic drugs; Z79.899 Other long term (current) drug therapy; T45.1X5A Adverse effect of antineoplastic and immunosuppressive drugs, initial encounter; H91.91 Unspecified hearing loss, right ear
CPT/HCPCS: 36415; 71045; 80048; 80053; 81001; 81599; 83605; 83735; 85025; 86850; 86900; 86901; 86920; 87040; 87633; 96361; 96365; 99285; A9270; J7512; P9037; P9040; 83036; 87086

== ENCOUNTER 2021-11-12 10:02 | Outpatient (CLI) | payer MEDICARE, OTHER ==
[2021-11-13 14:08] LABS: FREE TESTOSTERONE(DIRECT) 0.3 pg/mL (6.6-18.1); TESTOSTERONE <3 ng/dL (264-916)
== END 2021-11-12 10:03 | disposition home or self-care (01) ==
LOC: LAB.S 10:02
PROVIDERS: ATTEND Internal Medicine Endocrinology, Diabetes & Metabolism
DX: E29.1 Testicular hypofunction (principal)
CPT/HCPCS: 36415; 84402; 84403

== ENCOUNTER 2021-12-10 12:08 | Outpatient (CLI) | payer MEDICARE, OTHER | END 2021-12-10 12:09 | disposition home or self-care (01) | LOC: DI 12:08 | PROVIDERS: ATTEND Internal Medicine Cardiovascular Disease | DX: I42.9 Cardiomyopathy, unspecified (principal); I34.0 Nonrheumatic mitral (valve) insufficiency | CPT/HCPCS: 93308 ==

== ENCOUNTER 2022-01-19 11:27 | Outpatient (CLI) | payer MEDICARE, OTHER | END 2022-01-19 23:59 | disposition short-term general hospital (02) | LOC: EMS 11:27 | DX: M25.462 Effusion, left knee (principal); M25.562 Pain in left knee; H57.11 Ocular pain, right eye; R60.0 Localized edema; R50.9 Fever, unspecified; R00.0 Tachycardia, unspecified | CPT/HCPCS: A0425; A0427 ==

== ENCOUNTER 2022-02-21 08:00 | Outpatient (CLI) | payer MEDICARE, OTHER ==
[2022-02-21 21:05] LABS: BILIRUBIN,URINE NEGATIVE (NEGATIVE); GLUCOSE, URINE (UA) NEGATIVE (NEGATIVE); KETONES,URINE (UA) NEGATIVE (NEGATIVE); LEUKOCYTE ESTERASE, URINE NEGATIVE (NEGATIVE); NITRITE,URINE NEGATIVE (NEGATIVE); OCCULT BLOOD,URINE LARGE (NEGATIVE); PROTEIN,URINE 100 mg/dL (NEGATIVE); UROBILINOGEN,URINE 0.2 (NORMAL) E.U./dL (NORMAL)
[2022-02-21 21:09] LABS: BACTERIA,URINE Rare /HPF (None Seen); CLARITY,URINE CLOUDY (CLEAR); RBC,URINE TNTC /HPF (0-5); SQUAMOUS EPITHELIAL CELL,UR NONE SEEN (<= Few); WBC,URINE 0-3 /HPF (0-3)
== END 2022-02-21 23:59 | disposition home or self-care (01) ==
LOC: LAB.WCP 08:00
PROVIDERS: ATTEND Internal Medicine
DX: N39.0 Urinary tract infection, site not specified (principal)
CPT/HCPCS: 81001; 87086

== ENCOUNTER 2022-02-21 13:14 | Outpatient (CLI) | payer MEDICARE, OTHER ==
[2022-02-21 13:50] LABS: BASOPHILS % (AUTO) 0.4 %; CALCIUM 9.1 mg/dL (8.5-10.3); CREATININE 1.1 mg/dL (0.6-1.2); CRP - C-REACTIVE PROTEIN 1.7 mg/dL (0-1.0); EOSINOPHILS # (AUTO) 0.1 10^3/uL (0.0-0.7); HCT - HEMATOCRIT 23.4 % (42.0-52.0); HGB - HEMOGLOBIN 7.5 g/dL (14.0-18.0); LYMPHOCYTES # (AUTO) 0.4 10^3/uL (1.5-3.5); MEAN CORPUSCULAR HEMOGLOBIN 32.9 pg (27.0-31.0); MEAN CORPUSCULAR HGB CONC 32.1 g/dL (32.0-36.0); MEAN CORPUSCULAR VOLUME 102.6 fL (80.0-94.0); MEAN PLATELET VOLUME 12.3 fL (7.4-11.4); MONOCYTES # (AUTO) 0.3 10^3/uL (0.0-1.0); MONOCYTES % (AUTO) 12.6 %; NEUTROPHILS # (AUTO) 1.8 10^3/uL (1.5-6.6); NEUTROPHILS % (AUTO) 67.3 %; PLT - PLATELET COUNT 56 10^3/uL (130-450); POTASSIUM 3.9 mmol/L (3.5-5.0); RED BLOOD COUNT 2.28 10^6/uL (4.70-6.10); RED CELL DISTRIBUTION WIDTH 21.3 % (12.0-15.0); WHITE BLOOD COUNT 2.7 x10^3/uL (4.8-10.8)
[2022-02-21 14:03] LABS: PLATELET ESTIMATE, MANUAL DECREASED (<130,000) (NORMAL); PLATELET MORPHOLOGY NORMAL APPEARANCE (NORMAL); SLIDE REVIEW? Indicated
== END 2022-02-21 13:15 | disposition home or self-care (01) ==
LOC: LAB.R 13:14
DX: N39.0 Urinary tract infection, site not specified (principal)
CPT/HCPCS: 80048; 81001; 85025; 85651; 86140; 87086

== ENCOUNTER 2022-02-27 08:00 | Outpatient (CLI) | payer MEDICARE, OTHER ==
[2022-02-27 17:49] LABS: B. PARAPERTUSSIS- RESP PCR PAN NOT DETECTED; B. PERTUSSIS- RESP PCR PANEL NOT DETECTED; C. PNEUMONIAE- RESP PCR PANEL NOT DETECTED; CORONAVIRUS 229E-RESP PCR NOT DETECTED; CORONAVIRUS HKU1-RESP PCR NOT DETECTED; CORONAVIRUS NL63-RESP PCR NOT DETECTED; CORONAVIRUS OC43-RESP PCR NOT DETECTED; HUMAN METAPNEUMOVIRUS NOT DETECTED; INFLUENZA A- RESP PCR PANEL NOT DETECTED; INFLUENZA B - RESP PCR PANEL NOT DETECTED; M. PNEUMONIAE- RESP PCR PANEL NOT DETECTED; PARAINFLUENZA VIRUS 1 NOT DETECTED; PARAINFLUENZA VIRUS 2 NOT DETECTED; PARAINFLUENZA VIRUS 3 NOT DETECTED; PARAINFLUENZA VIRUS 4 NOT DETECTED; RHINOVIRUS/ENTEROVIRUS NOT DETECTED; RSV- RESP PCR PANEL NOT DETECTED
[2022-02-27 17:51] LABS: SARS-CoV-2 -RESP PCR PANEL DETECTED
== END 2022-02-27 23:59 | disposition home or self-care (01) ==
LOC: LAB.R 08:00
PROVIDERS: ATTEND Internal Medicine
DX: U07.1 COVID-19 (principal)
CPT/HCPCS: 87633

== ENCOUNTER 2022-03-01 11:08 | Outpatient (CLI) | payer MEDICARE, OTHER | END 2022-03-01 11:09 | disposition critical access hospital (66) | LOC: EMS 11:08 | DX: U07.1 COVID-19 (principal); I95.9 Hypotension, unspecified; R53.1 Weakness | CPT/HCPCS: A0425; A0429 ==

== ENCOUNTER 2022-03-01 11:14 | Emergency (ER) | payer MEDICARE, OTHER ==
--- NOTE | 2022-03-01 11:45 | ED Physician Documentation ---
PD HPI MAJOR TRAUMA - Stated complaint Stated Complaint: HYPOTENSION/C+/ABD PX - Chief complaint Chief Complaint: Cardiac - History obtained from History obtained from: Patient, EMS - Additional information Additional information: 71-year-old gentleman with complicated past medical history including Danitza's granulomatosis, myelodysplastic syndrome status post stem cell transplant, and more recently it sounds like he had an infection in the left knee and had an antibiotic eluding plates placed there and because of that has been at [facility] for the last month or so. His main complaint is that since he has been at the he has been unable to irrigate his nose. 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 The equipment is not available at the and he feels chronically congested now and because of that has poor taste and smell. He developed COVID according to the chart yesterday was started on pack Slo-Bid. Today he was noted to be hypotensive down into the high 80s over 50s range. He feels weak but states this is not acute, its been going on for the last month, he denies dizziness. He did have a fall, he was ambulating with his walker and got dizzy and fell. He does not think he passed out, but he does complain of pain of the right lower chest and right upper abdomen after the fall, he does not know if he hit his walker on the way down or the ground. From COVID perspective he denies fevers, chills, body aches. He is not short of breath. Also on exam I note that his left knee is swollen and warm with good range of motion. He states this is improving. Review of Systems Ten Systems: 10 systems reviewed and negative Constitutional: reports: Fatigue. denies: Fever, Chills Cardiac: reports: Palpitations. denies: Chest pain / pressure Respiratory: denies: Dyspnea, Cough PD PAST MEDICAL HISTORY - Past Medical History Cardiovascular: Coronary artery disease, Atrial fibrillation - Present Medications Home Medications: Ambulatory Orders Medication Instructions Recorded Confirmed Rosuvastatin Calcium [Crestor] 10 mg PO DAILY 03/30/21 12/28/21 Tamsulosin HCl [Flomax] 0.4 mg PO DAILY 03/30/21 12/28/21 Valacyclovir HCl [Valtrex] 500 mg PO BID 03/30/21 12/28/21 Magnesium Oxide 1,200 mg PO BID 03/31/21 12/28/21 predniSONE [Deltasone] 8 mg PO DAILY 03/31/21 12/28/21 Calcium Carbonate/Vitamin D3 1 each PO DAILY 06/15/21 12/28/21 [Calcium 600-Vit D3 200 Tablet] Multivitamin/Iron/Folic Acid 1 each PO DAILY 06/15/21 12/28/21 [Certavite-Antioxidant Tablet] Metoprolol Succinate 100 mg PO BID 06/24/21 12/28/21 Apixaban [Eliquis] 2.5 mg PO BID 11/09/21 12/28/21 - Allergies Allergies/Adverse Reactions: Allergies Allergy/AdvReac Type Severity Reaction Status Date / Time No Known Drug Allergies Allergy Verified 11/16/21 14:47 - Social History Does the pt smoke?: No Smoking Status: Never smoker PD ED PE NORMAL - Vitals Vital signs reviewed: Yes - General General: Alert and oriented X 3, No acute distress - HEENT HEENT: Other (Chronic deformity of the nose and abnormality of the left eye that he states are chronic.) - Neck Neck: Supple, no meningeal sign, No bony TTP - Cardiac Cardiac: RRR, No murmur - Respiratory Respiratory: No respiratory distress, Clear bilaterally, Other (Tender to the right low chest wall anterior axillary line) - Abdomen Abdomen: Normal bowel sounds, Soft, Other (Mild right upper quadrant tenderness without diffuse tenderness) - Back Back: No CVA TTP, No spinal TTP - Derm Derm: Normal color, Warm and dry - Extremities Extremities: No edema - Neuro Neuro: Alert and oriented X 3, Normal speech Results - Vitals Vitals: Vital Signs - 24 hr 03/01/22 03/01/22 03/01/22 11:25 12:00 12:30 Temperature 37.2 C 37.2 C Heart Rate 73 72 72 Heart Rate [ Monitoring electrodes] Respiratory 12 17 17 Rate Blood Pressure 87/54 L 88/60 L 88/60 L Blood Pressure [Right Brachial artery] O2 Saturation 95 98 98 If not protocol : Oxygen Flow, liters/minute 03/01/22 03/01/22 03/01/22 13:00 13:30 14:00 Temperature Heart Rate 85 76 70 Heart Rate [ Monitoring electrodes] Respiratory 16 14 12 Rate Blood Pressure 98/59 L 98/60 98/52 L Blood Pressure [Right Brachial artery] O2 Saturation 95 100 100 If not protocol : Oxygen Flow, liters/minute 03/01/22 03/01/22 03/01/22 15:00 15:30 16:00 Temperature Heart Rate 72 69 67 Heart Rate [ Monitoring electrodes] Respiratory 12 15 14 Rate Blood Pressure 98/54 L 106/52 L 103/54 L Blood Pressure [Right Brachial artery] O2 Saturation 98 99 95 If not protocol : Oxygen Flow, liters/minute 03/01/22 03/01/22 03/01/22 16:30 16:51 17:00 Temperature 36.7 C 36.5 C Heart Rate 73 68 Heart Rate [ 67 Monitoring electrodes] Respiratory 16 12 16 Rate Blood Pressure 107/55 L 100/52 L Blood Pressure 94/57 L [Right Brachial artery] O2 Saturation 99 99 97 If not protocol : Oxygen Flow, liters/minute 03/01/22 03/01/22 03/01/22 17:13 17:14 17:30 Temperature 36.5 C 36.7 C 36.7 C Heart Rate 70 Heart Rate [ 68 70 Monitoring electrodes] Respiratory 16 14 14 Rate Blood Pressure 91/51 L Blood Pressure 100/52 L 91/51 L [Right Brachial artery] O2 Saturation 97 98 98 If not protocol : Oxygen Flow, liters/minute 03/01/22 03/01/22 03/01/22 18:00 18:30 19:25 Temperature 36.8 C 36.8 C Heart Rate 68 67 Heart Rate [ 67 Monitoring electrodes] Respiratory 15 18 16 Rate Blood Pressure 96/53 L 101/51 L Blood Pressure 100/60 [Right Brachial artery] O2 Saturation 98 98 97 If not protocol 98 : Oxygen Flow, liters/minute 03/01/22 03/01/22 03/01/22 19:26 19:28 19:30 Temperature 36.9 C 36.9 C Heart Rate 69 Heart Rate [ 70 70 Monitoring electrodes] Respiratory 17 14 12 Rate Blood Pressure 96/56 L Blood Pressure 100/60 100/60 [Right Brachial artery] O2 Saturation 96 98 98 If not protocol : Oxygen Flow, liters/minute Oxygen O2 Source Room air - EKG (time done) 1202 Rate: Rate (enter#) (69) Rhythm: NSR Erwin: Normal Intervals: Normal ND QRS: Normal Ischemia: Q waves (inferior). No: ST elevation c/w ischemia, ST depression - Labs Labs: Laboratory Tests 03/01/22 03/01/22 03/01/22 11:50 11:50 11:50 WBC 3.3 L RBC 2.02 L Hgb 6.6 L* Hct 21.4 L MCV 105.9 H MCH 32.7 H MCHC 30.8 L RDW 21.7 H Plt Count 56 L MPV 9.3 Neut # (Auto) 2.4 Lymph # (Auto) 0.4 L [place] # (Auto) 0.4 Eos # (Auto) 0.0 Baso # (Auto) 0.0 Absolute Nucleated RBC 0.00 Nucleated RBC % 0.0 Sodium 132 L Potassium 3.7 Chloride 98 L Carbon Dioxide 25 Anion Gap 9.0 BUN 29 H Creatinine 1.3 H Estimated GFR (MDRD) 54 L Glucose 133 H Lactic Acid 0.9 Calcium 8.4 L Magnesium 1.8 Total Bilirubin 0.5 AST 64 H ALT 62 H Alkaline Phosphatase 69 Total Protein 6.3 L Albumin 2.9 L Globulin 3.4 Albumin/Globulin Ratio 0.9 L Urine Color Urine Clarity Urine pH Ur Specific [place] Urine Protein Urine Glucose (UA) Urine Ketones Urine Occult Blood Urine Nitrite Urine Bilirubin Urine Urobilinogen Ur Leukocyte Esterase Urine RBC Urine WBC Ur Squamous Epith Cells Urine Bacteria Urine Yeast Urine Culture Comments Blood Type Antibody Screen Crossmatch IS Only 03/01/22 03/01/22 11:50 16:40 WBC RBC Hgb Hct MCV MCH MCHC RDW Plt Count MPV Neut # (Auto) Lymph # (Auto) [place] # (Auto) Eos # (Auto) Baso # (Auto) Absolute Nucleated RBC Nucleated RBC % Sodium Potassium Chloride Carbon Dioxide Anion Gap BUN Creatinine Estimated GFR (MDRD) Glucose Lactic Acid Calcium Magnesium Total Bilirubin AST ALT Alkaline Phosphatase Total Protein Albumin Globulin Albumin/Globulin Ratio Urine Color YELLOW Urine Clarity HAZY Urine pH 5.5 Ur Specific [place] 1.010 Urine Protein TRACE Urine Glucose (UA) NEGATIVE Urine Ketones NEGATIVE Urine Occult Blood LARGE H Urine Nitrite NEGATIVE Urine Bilirubin NEGATIVE Urine Urobilinogen 0.2 (NORMAL) Ur Leukocyte Esterase NEGATIVE Urine RBC TNTC H Urine WBC 4-5 Ur Squamous Epith Cells RARE Squamous Urine Bacteria Rare Urine Yeast PRESENT Urine Culture Comments NOT INDICATED Blood Type O POSITIVE Antibody Screen NEGATIVE Crossmatch IS Only See Detail - Rads (name of study) CT of the abdomen without traumatic abnormality. Possible colitis. Radiology: Final report received, EMP read indepedently CT of the head and cervical spine were negative for trauma. Radiology: Final report received, EMP read indepedently CT of the chest PE protocol no acute rib fractures and no PE. Radiology: Final report received, EMP read indepedently PD Medical Decision Making - ED course ED course: 71-year-old gentleman with complicated past medical history including DVT on anticoagulation, stem cell transplant, A. fib presents after a syncopal episode with weakness and hypotension from a SNF. He is newly on paxlovid for COVID starting yesterday. His left knee is warm and swollen but he says this is improving. There is a concern for symptomatic anemia given history of transfusion dependence. 71-year-old gentleman with history of MDS status post stem cell transplant presents with symptomatic hypotension and near syncopal episode today. He fell and is found to be hypotensive here which responded to blood. He is anemic, but he is transfusion dependent so I doubt this is from trauma. He was given 2 units of blood here with improvement in his vital signs. Given the syncope, chest wall injuries, and abdominal tenderness CTA of the chest and CT of the abdomen was done as well as a head and neck CT especially noting that he was anticoagulated without pertinent traumatic findings. Departure - Departure Disposition: 01 Home, Self Care Clinical Impression: Pancytopenia, Symptomatic anemia, Ground-level fall, Near syncope, Adequate anticoagulation on anticoagulant therapy, COVID Chest wall contusion Qualifiers: Encounter type: initial encounter Laterality: right Qualified Code(s): S20.211A - Contusion of right front wall of thorax, initial encounter Abdominal wall contusion Qualifiers: Encounter type: initial encounter Qualified Code(s): S30.1XXA - Contusion of abdominal wall, initial encounter Hypotension Qualifiers: Hypotension type: unspecified hypotension type Qualified Code(s): I95.9 - Hypotension, unspecified Condition: Good Record reviewed to determine appropriate education?: Yes Instructions: ED Contusion Chest Wall Comments: Your hemoglobin today was 6.6 and your hematocrit was 21.4. We gave you 2 units of blood with improvement in your blood pressure. Given the fall, and apparent injuries to the chest and abdominal wall CTs of the head, neck, chest, and abdomen were done without traumatic findings. Return for new or worsening symptoms. Follow-up with your oncologist in a week or 2.
[2022-03-01 12:09] LABS: EOSINOPHILS % (AUTO) 0.3 %; HCT - HEMATOCRIT 21.4 % (42.0-52.0); LYMPHOCYTES # (AUTO) 0.4 10^3/uL (1.5-3.5); LYMPHOCYTES % (AUTO) 13.1 %; MEAN CORPUSCULAR HEMOGLOBIN 32.7 pg (27.0-31.0); MEAN CORPUSCULAR HGB CONC 30.8 g/dL (32.0-36.0); MEAN CORPUSCULAR VOLUME 105.9 fL (80.0-94.0); MEAN PLATELET VOLUME 9.3 fL (7.4-11.4); MONOCYTES # (AUTO) 0.4 10^3/uL (0.0-1.0); MONOCYTES % (AUTO) 13.1 %; NEUTROPHILS # (AUTO) 2.4 10^3/uL (1.5-6.6); NEUTROPHILS % (AUTO) 73.2 %; PLT - PLATELET COUNT 56 10^3/uL (130-450); RED BLOOD COUNT 2.02 10^6/uL (4.70-6.10); RED CELL DISTRIBUTION WIDTH 21.7 % (12.0-15.0); WHITE BLOOD COUNT 3.3 x10^3/uL (4.8-10.8)
[2022-03-01 12:14] LABS: HGB - HEMOGLOBIN 6.6 g/dL (14.0-18.0)
[2022-03-01 12:17] LABS: ALBUMIN 2.9 g/dL (3.2-5.5); ALBUMIN/GLOBULIN RATIO 0.9 (1.0-2.2); BILIRUBIN,TOTAL 0.5 mg/dL (0.2-1.0); CALCIUM 8.4 mg/dL (8.5-10.3); CREATININE 1.3 mg/dL (0.6-1.2); MAGNESIUM 1.8 mg/dL (1.7-2.8); POTASSIUM 3.7 mmol/L (3.5-5.0); TOTAL PROTEIN 6.3 g/dL (6.7-8.2)
[2022-03-01] MEDS ORDERED: iohexoL-300 100 ML VIAL ONE (12:24)
--- NOTE | 2022-03-01 13:18 | CT Report ---
PROCEDURE: HEAD WO INDICATIONS: head inj TECHNIQUE: Noncontrast 4.5 mm thick angled axial sections acquired from the foramen magnum to the vertex. For r adiation dose reduction, the following was used: automated exposure control, adjustment of mA and/or kV according to patient size. COMPARISON: Correlation is made with the accompanying CT examinations FINDINGS: Image quality: Motion artifact is noted. CSF spaces: Basal cisterns are patent. No extra-axial fluid collections. Ventricles are normal in size and shape. Brain: No midline shift. No intracranial masses or hemorrhage. Estrada-white matter interface is norm al. Skull and face: Calvarium and visualized facial bones are intact, without suspicious lesions. Sinuses: No significant active paranasal sinus disease is seen. Mild bilateral mastoid air cell fluid can be seen. Apparent prior antrectomy changes are partially seen. Please correlate with known patient history. IMPRESSION: Motion limited study, without a spike, acute intracranial abnormality. No intracranial hemorrhage is seen. Reviewed by: Landon Thornton MD on 03/01/2022 12:17 PM [facility] Approved by: Landon Thornton MD on 03/01/2022 12:17 PM [facility] Station ID: [id number]
--- NOTE | 2022-03-01 13:20 | CT Report ---
PROCEDURE: CERVICAL SPINE WO INDICATIONS: head inj TECHNIQUE: Noncontrast 3 mm thick sections acquired from the skull base to the T4 level. Sagittal and coronal r eformats were then constructed. For radiation dose reduction, the following was used: automated exp osure control, adjustment of mA and/or kV according to patient size. COMPARISON: Correlation is made with the accompanying CT examinations, 03/01/2022. FINDINGS: Image quality: Excellent. Bones: No fractures or dislocations. Visualized superior ribs are intact. Generalized degenerative changes are seen, including moderate disc space narrowing at C3-C4, C4-C5, a nd C5-C6. Moderate to severe disc space narrowing can be seen at C6-C7. Partial bridging anterior ost eophytes are seen at least C4-C7. Focal degenerative change can also be seen involving the C1-C2 inte rface anteriorly. Soft tissues: Prevertebral soft tissues are normal in thickness. No paravertebral hematomas. No ap ical pneumothoraces. A right-sided central line is partially seen. Atherosclerotic calcification is seen. IMPRESSION: Negative for acute cervical spine fracture. Additional findings: Degenerative changes, worst at C6-C7 Right-sided central line Reviewed by: Landon Thornton MD on 03/01/2022 12:19 PM [facility] Approved by: Landon Thornton MD on 03/01/2022 12:19 PM [facility] Station ID: [id number]
--- NOTE | 2022-03-01 13:27 | CT Report ---
PROCEDURE: ABDOMEN/PELVIS W INDICATIONS: abd inj CONTRAST: Omni 300 100ml TECHNIQUE: After the administration of IV contrast, 5 mm thick sections acquired from the diaphragms to the symp hysis. 5 mm thick coronal and sagittal reformats were acquired. For radiation dose reduction, the f ollowing was used: automated exposure control, adjustment of mA and/or kV according to patient size. COMPARISON: Correlation is made with the accompanying CT examinations, 03/01/2022. FINDINGS: Image quality: Excellent. ABDOMEN: Lung bases: Lung bases are clear. Heart size is normal. Advanced coronary artery calcification can be seen. A central line is seen, with the tip near the cavoatrial junction. Solid organs: Liver and spleen are normal in size and enhancement. Gallbladder demonstrates gallsto paty within its lumen. Biliary system is non dilated. Pancreas enhances normally. No adrenal nodule s. Kidneys demonstrate normal size and enhancement, without hydronephrosis. Low-density left renal cyst s are seen, the largest seen inferiorly and anteriorly measuring 2.6 cm. Peritoneum and bowel: Focal fatty stranding can be seen adjacent to the splenic flexure of the colon . Diverticulosis can be seen within this region. Diverticulosis is seen elsewhere. There is a relativ tommie long segment of moderate wall thickening involving the entire descending colon and proximal sigmo id colon. The proximal colon demonstrates no significant abnormality. No free air or significant free fluid can be seen. A loculated abscess can be seen. No dilated loops of small bowel are seen. A normal appendix is incidentally noted. The stomach is relatively decompressed. Nodes and vessels: No retroperitoneal or mesenteric adenopathy by size criteria. Aorta and inferior vena cava are normal in size. Atherosclerotic calcification is seen. Miscellaneous: No ventral hernias. PELVIS: Genitourinary: Bladder wall thickness is normal. Miscellaneous: No inguinal hernias or adenopathy. Bones: No suspicious bony lesions. No acute appearing vertebral body compression fractures. Mild t horacolumbar junction anterior wedge deformities are seen. There is a remote appearing fracture of th e posterior/central aspect of L5, with 20% loss of height. Bilateral pars defects are seen at L5, wit h associated grade 1 L5-S1 anterolisthesis. Focal moderate disc space narrowing can be seen at L5-S1, with a degree of endplate fusion. IMPRESSION: No spike, acute posttraumatic abnormality can be seen. Generalized distal colonic wall thickening can be seen. Fatty scarring can be seen adjacent to the sp lenic flexure of the colon. Please correlate with potential infectious and inflammatory causes of col itis. No findings of perforation or abscess can be seen. Additional findings: Central line tip near the cavoatrial junction Advanced coronary artery calcification Gallstones Simple appearing left renal cysts Scattered mild vertebral body compression deformities Bilateral L5 pars defects, with grade 1 L5-S1 anterolisthesis Focal L5-S1 degenerative change Reviewed by: Landon Thornotn MD on 03/01/2022 12:26 PM [place] Approved by: Landon Thornton MD on 03/01/2022 12:26 PM [facility] [place] Station ID: [id number]
--- NOTE | 2022-03-01 13:31 | CT Report ---
PROCEDURE: ANGIO CHEST W/WO INDICATIONS: Syncope, COVID, chest wall injury CONTRAST: Omni 300 100ml TECHNIQUE: After the administration of intravenous contrast, 2 mm axial images were acquired from the pulmonary apices to the posterior costophrenic angles during the arterial phase. In addition, 1 mm lung kernel and 5 mm soft tissue kernel reconstructions were performed. 3-dimensional coronal oblique maximum int ensity projection (MIP) reformats, 8 mm axial MIP, and 5 mm coronal and sagittal MPR reformats were t hen performed through the thorax. For radiation dose reduction, the following was used: automated exp osure control, adjustment of mA and/or kV according to patient size. COMPARISON: Correlation is made with the accompanying CT examinations as well as prior chest plain f il, 06/24/2021. FINDINGS: Image quality: Excellent. Pulmonary arteries: Pulmonary arteries are normal in size, and demonstrate no intraluminal filling d efects to suggest central pulmonary embolism. Lungs and pleura: Lungs are clear. No pleural effusions or pneumothorax. Central and peripheral ai rways are patent. Mediastinum: The tip of the right-sided chest port can be seen near the cavoatrial junction. Advance d coronary artery calcification can be seen. Heart size is normal, without pericardial effusion. No mediastinal or hilar adenopathy. Thoracic aorta is normal in caliber and enhancement. Esophagus is normal in caliber. There is a small hiatal hernia. Bones and chest wall: No suspicious bony lesions. Remote appearing left lateral and posterior rib fr actures are seen. No acute fractures are detected. Mild chronic lower thoracic spine anterior superio r ribs are seen. Lower cervical spine degenerative changes are noted. No axillary or supraclavicular adenopathy. The thyroid is normal in size and there are no incidental findings. Abdomen: Visualized upper abdominal solid organs appear normal in the early arterial phase of enhanc ement. IMPRESSION: Clear lungs, without focal infiltrates. No acute rib fractures are seen, although note is made of remote lateral and posterior left-sided rib fractures. Negative for pulmonary embolism. Remote appearing lower thoracic spine compression from these, without an acute abnormality identified . Incidental note is made of: Central line tip near the cavoatrial junction Advanced coronary artery calcification Small hiatal hernia Reviewed by: Landon Thornton MD on 03/01/2022 12:30 PM [place] Approved by: Landon Thornton MD on 03/01/2022 12:30 PM [facility] Station ID: [id number]
[2022-03-01] MEDS: iohexoL-300 100 ML VIAL IVP ONE (14:30)
[2022-03-01 16:47] LABS: BILIRUBIN,URINE NEGATIVE (NEGATIVE); CLARITY,URINE HAZY (CLEAR); GLUCOSE, URINE (UA) NEGATIVE (NEGATIVE); KETONES,URINE (UA) NEGATIVE (NEGATIVE); LEUKOCYTE ESTERASE, URINE NEGATIVE (NEGATIVE); NITRITE,URINE NEGATIVE (NEGATIVE); OCCULT BLOOD,URINE LARGE (NEGATIVE); PH,URINE 5.5 PH (5.0-7.5); PROTEIN,URINE TRACE mg/dL (NEGATIVE); UROBILINOGEN,URINE 0.2 (NORMAL) E.U./dL (NORMAL)
[2022-03-01 16:54] LABS: BACTERIA,URINE Rare /HPF (None Seen); RBC,URINE TNTC /HPF (0-5); SQUAMOUS EPITHELIAL CELL,UR RARE Squamous (<= Few)
[2022-03-01 16:55] LABS: YEAST,URINE PRESENT
[2022-03-01 21:59] VITALS: BP 96/62
== END 2022-03-01 22:02 | disposition home or self-care (01) ==
LOC: EDUNIT# → ED 11:14
DX: R55 Syncope and collapse (principal); S20.211A Contusion of right front wall of thorax, initial encounter; S30.1XXA Contusion of abdominal wall, initial encounter; W18.39XA Other fall on same level, initial encounter; Y93.01 Activity, walking, marching and hiking; Y92.129 Unspecified place in nursing home as the place of occurrence of the external cause; D64.9 Anemia, unspecified; I95.9 Hypotension, unspecified; D61.818 Other pancytopenia; U07.1 COVID-19; M31.30 Wegener's granulomatosis without renal involvement; Z79.01 Long term (current) use of anticoagulants
CPT/HCPCS: 36415; 36430; 70450; 71275; 72125; 74177; 80053; 81001; 83605; 83735; 85025; 86850; 86900; 86901; 86920; 87040; 93005; 96374; 99284; 99285; P9040; Q9967; 87086

== ENCOUNTER 2022-03-01 22:03 | Outpatient (CLI) | payer MEDICARE, OTHER | END 2022-03-01 22:04 | disposition home or self-care (01) | LOC: EMS 22:03 | PROVIDERS: ATTEND Emergency Medicine | DX: U07.1 COVID-19 (principal); R55 Syncope and collapse; D64.9 Anemia, unspecified | CPT/HCPCS: A0425; A0428 ==

== ENCOUNTER 2022-03-11 15:00 | Emergency (ER) | payer MEDICARE, OTHER ==
[2022-03-11 15:28] VITALS: BP 111/60
[2022-03-11] MEDS ORDERED: HYDROcod/ACETAM 5/325 MG TABLET PO STA (15:36)
--- NOTE | 2022-03-11 15:37 | ED Physician Documentation ---
PD HPI MAJOR TRAUMA - Stated complaint Stated Complaint: R RIBS PX - Chief complaint Chief Complaint: Trauma Hd/Nk - History obtained from History obtained from: Patient - Additional information Additional information: 71-year-old gentleman with history of Danitza's granulomatosis, myelodysplastic syndrome, and a left knee infection currently at [facility] for rehab. He had fallen a month ago and hit his right side. He is still having persistent pain in the low lateral right Shabnam ribs. He was seen for this and other issues 10 days ago here at which time he had extensive testing including but not limited to CT of the chest, abdomen pelvis, and cervical spine with no findings of trauma. Pain is persistent and severe although he is not taking anything for it. He does have a cough and he did have recent COVID. Denies fevers and is not short of breath. Review of Systems Constitutional: reports: Reviewed and negative Nose: reports: Reviewed and negative Throat: reports: Reviewed and negative Cardiac: reports: Reviewed and negative PD PAST MEDICAL HISTORY - Past Medical History Cardiovascular: Coronary artery disease, Atrial fibrillation - Present Medications Home Medications: Ambulatory Orders Medication Instructions Recorded Confirmed Rosuvastatin Calcium [Crestor] 10 mg PO DAILY 03/30/21 12/28/21 Tamsulosin HCl [Flomax] 0.4 mg PO DAILY 03/30/21 12/28/21 Valacyclovir HCl [Valtrex] 500 mg PO BID 03/30/21 12/28/21 Magnesium Oxide 1,200 mg PO BID 03/31/21 12/28/21 predniSONE [Deltasone] 8 mg PO DAILY 03/31/21 12/28/21 Calcium Carbonate/Vitamin D3 1 each PO DAILY 06/15/21 12/28/21 [Calcium 600-Vit D3 200 Tablet] Multivitamin/Iron/Folic Acid 1 each PO DAILY 06/15/21 12/28/21 [Certavite-Antioxidant Tablet] Metoprolol Succinate 100 mg PO BID 06/24/21 12/28/21 Apixaban [Eliquis] 2.5 mg PO BID 11/09/21 12/28/21 HYDROcod/ACETAM 5/325 [Bridgeton 5/325] 1 - 2 tab PO Q6H PRN #20 tablet 03/11/22 - Allergies Allergies/Adverse Reactions: Allergies Allergy/AdvReac Type Severity Reaction Status Date / Time No Known Drug Allergies Allergy Verified 03/11/22 15:28 - Social History Does the pt smoke?: No Smoking Status: Never smoker PD ED PE NORMAL - Vitals Vital signs reviewed: Yes - General General: Alert and oriented X 3, No acute distress - HEENT HEENT: PERRL, EOMI, Other (Abnormality of the nose, eye patch on the left.) - Neck Neck: Supple, no meningeal sign, No bony TTP - Cardiac Cardiac: RRR, No murmur - Respiratory Respiratory: No respiratory distress, Other (There is some bruising in the mid axillary line that looks a little older, down towards the lower ribs on the right. He is tender underlying these areas. He is coughing occasionally and has some rhonchorous but nonfocal breath sounds.) - Abdomen Abdomen: Non tender - Derm Derm: Normal color, Warm and dry - Extremities Extremities: Other (Knee on the left continuing to be swollen but better than it was 10 days ago. Minimal warmth.) - Neuro Neuro: Alert and oriented X 3, Normal speech Eye Opening: Spontaneous Motor: Obeys Commands Verbal: Oriented GCS Score: 15 Results - Vitals Vitals: Vital Signs - 24 hr 03/11/22 15:22 Temperature 36.6 C Heart Rate 101 H Respiratory 16 Rate Blood Pressure 111/60 O2 Saturation 98 Oxygen O2 Source Room air - Rads (name of study) 2v cxr Radiology: Final report received, EMP read indepedently (NAD) PD Medical Decision Making - ED course ED course: 71-year-old gentleman with persistent right chest wall pain related to a chest wall contusion and has already had negative CT imaging for same. He has a persistent cough and a chest x-ray was checked without pertinent positive findings and he requested some pain control. Departure - Departure Disposition: 01 Home, Self Care Clinical Impression: Chest wall contusion Qualifiers: Encounter type: initial encounter Laterality: right Qualified Code(s): S20.211A - Contusion of right front wall of thorax, initial encounter Cough Qualifiers: Cough type: subacute Qualified Code(s): R05.2 - Subacute cough Condition: Good Record reviewed to determine appropriate education?: Yes Instructions: ED Contusion Chest Wall Follow-Up: Nataly Ibrahim ARNP [Credentialed Staff Provider] - Prescriptions: HYDROcod/ACETAM 5/325 [Bridgeton 5/325] 1 - 2 tab PO Q6H PRN #20 tablet PRN Reason: Pain Comments: We did a CAT scan 10 days ago which did not show any acute rib fractures. We actually have some old rib fractures on the other side. Tonight we also did a chest x-ray to make sure there were no serious changes, there were not. Call your doctor to arrange a follow-up appointment, make the next available appointment. In the interim, return anytime if worse or if new symptoms develop. I sent your prescription to [facility] pharmacy. I am prescribing a short course of narcotic pain medication for you. These are potentially dangerous and addictive medications that should be used carefully. These medications may constipate you. Take an cbym-epb-yapcdze stool softener (docusate) twice daily with plenty of water while taking these medications. If you go 24 hours without a bowel movement, take [id number] miralax, per package instructions. Do not drink or drive while taking these medications. If you received narcotic or sedating medications while in the emergency department, do not drive for 24 hours. Store this medication in a safe, secure place and out of reach of children. It is a violation of federal law to give or sell this medication to another person or to use in a manner other than prescribed. The ED will not refill narcotic prescriptions, including prescriptions lost or stolen. To dispose of unwanted medications: 1. [facility] at [address] in [place] has a medication drop box. They accept prescription medications (in pill form) Monday through Monday 9:00 a.m. to 5:00 p.m. 2. The [facility] [employer] accepts prescription medications (in pill form only) for disposal year round. Call for more information. 3. Contact the [facility] for the next [facility] sponsored prescription drug collection event. , [phone], or [phone]; Note that many narcotic pain relievers also contain Tylenol/acetaminophen. Please ensure that your total dose of acetaminophen from all sources does not exceed 3 g (3000 mg) per day. Discharge Date/Time: 03/11/22 17:32
--- OUTSIDE RECORDS SUMMARY | 2022-03-11 15:37 | EXTERNAL MEDICAL SUMMARY RPT | Continuity of Care Document ---
:1950 Author Organization [facility] Address [address] [place] [address] Phone Care Team Providers Name Role Phone Boo, Provider Unavailable Unavailable Allergies No information. Encounters No information. Functional Status No information. Immunizations No information. Medications date description facility 2021-12-29 00:00 apixaban [facility] 2021-12-29 00:00 prednisone [facility] 2021-12-29 00:00 metoprolol succinate [facility] 2021-12-29 00:00 valacyclovir [facility] 2021-12-29 00:00 apixaban [facility] 2021-12-29 00:00 tamsulosin [facility] 2021-12-29 00:00 apixaban [facility] 2021-12-29 00:00 prednisone [facility] 2021-12-29 00:00 omeprazole [facility] 2021-12-29 00:00 prednisone [facility] 2021-12-29 00:00 prednisone [facility] 2021-12-29 00:00 ofloxacin [facility] 2021-12-29 00:00 valacyclovir [facility] 2021-12-29 00:00 metoprolol succinate [facility] 2021-12-29 00:00 valacyclovir [facility] 2021-12-29 00:00 rosuvastatin [facility] 2021-12-29 00:00 ofloxacin [facility] 2021-12-29 00:00 omeprazole [facility] 2021-12-29 00:00 tamsulosin [facility] 2021-12-29 00:00 ofloxacin [facility] 2021-12-29 00:00 omeprazole [facility] 2021-12-29 00:00 valacyclovir [facility] 2021-12-29 00:00 tamsulosin [facility] 2021-12-29 00:00 omeprazole [facility] 2021-12-29 00:00 rosuvastatin [facility] 2021-12-29 00:00 metoprolol succinate [facility] 2021-12-29 00:00 rosuvastatin [facility] 2021-12-29 00:00 apixaban [facility] 2021-12-29 00:00 rosuvastatin [facility] 2021-12-29 00:00 ofloxacin [facility] 2021-12-29 00:00 tamsulosin [facility] 2021-12-29 00:00 metoprolol succinate [facility] Problems No information. Procedures No information. Results/Labs No information. Social History date description facility 2021-12-29 00:00 Unknown if ever smoked [facility] [place] Vital Signs No information.
--- NOTE | 2022-03-11 16:11 | XRAY Report ---
PROCEDURE: Chest 2 View X-Ray INDICATIONS: cough/rib pain TECHNIQUE: 2 views of the chest were acquired. COMPARISON: None FINDINGS: Surgical changes and devices: Right chest wall port is seen with good positioning of the tip.. Lungs and pleura: No pleural effusions or pneumothorax. Lungs are clear. Mediastinum: Mediastinal contours are normal. Heart size is normal. Bones and chest wall: No suspicious bony abnormalities. There is a healed left sixth rib fracture. Soft tissues appear unremarkable. IMPRESSION: 1. No acute abnormality of the chest. 2. Healed left sixth rib fracture. Reviewed by: Marcin Rivers on 03/11/2022 4:10 PM PST Approved by: Marcin Rivers on 03/11/2022 4:10 PM PST Station ID: [id number]
== END 2022-03-11 17:32 | disposition home or self-care (01) ==
LOC: ED 15:00
DX: S20.211A Contusion of right front wall of thorax, initial encounter (principal); W19.XXXA Unspecified fall, initial encounter; R05.2 Subacute cough; I48.91 Unspecified atrial fibrillation
CPT/HCPCS: 71046; 99283; A9270

== ENCOUNTER 2022-04-02 04:46 | Outpatient (CLI) | payer MEDICARE, OTHER | END 2022-04-02 04:47 | disposition critical access hospital (66) | LOC: EMS 04:46 | DX: K62.5 Hemorrhage of anus and rectum (principal); R53.1 Weakness; R31.9 Hematuria, unspecified; I95.9 Hypotension, unspecified; Z79.01 Long term (current) use of anticoagulants | CPT/HCPCS: A0425; A0427 ==

== ENCOUNTER 2022-04-02 05:23 | Inpatient (IN) | payer MEDICARE, OTHER ==
--- NOTE | 2022-04-02 05:19 | ED Physician Documentation ---
PD HPI GI BLEED - Stated complaint Stated Complaint: RECTAL BLEED - History obtained from History obtained from: Patient, EMS - History of Present Illness Timing - onset: How many days ago (3) Timing - duration: Days Timing - details: Intermittant Pain level now: 8 Associated symptoms: BRBPR. No: Vomiting, Coffee ground emesis, Hematemesis, Maroon stool, Black/tarry stool, Diarrhea, Constipation, Abdominal pain, Fever Contributing factors: Anticoagulated Similar symptoms before: Diagnosis (hemorrhoids) - Additional information Additional information: HPI is from patient. Patient is brought in by ambulance with a chief complaint of 3 days of bright red blood per rectum rectal pain. Patient says he has a long history of hemorrhoids although he does not recall ever having any bleeding from the hemorrhoids nor the amount of pain he has been having the last few days being associated with his hemorrhoids.He has significant past medical history including acute myelogenous leukemia/myelodysplastic syndrome, status post stem cell transplant October 2020, pancytopenia, Right lower extremity DVT for which he is on Eliquis (although the Eliquis dosing is 2.5 mg twice daily due to thrombocytopenia), history of A. fib. Patient says he has had many blood transfusions for his anemia, although he has not required one since August 2021. Patient was given 100 mcg of fentanyl IV by medics with modest improvement in his pain level. Review of Systems Constitutional: denies: Fever GI: reports: Bloody / black stool. denies: Abdominal Pain, Nausea, Vomiting, Constipation, Diarrhea, Hematemesis : reports: Hematuria PD PAST MEDICAL HISTORY - Past Medical History Cardiovascular: Coronary artery disease, Atrial fibrillation - Present Medications Home Medications: Ambulatory Orders Medication Instructions Recorded Confirmed Rosuvastatin Calcium [Crestor] 10 mg PO DAILY 03/30/21 04/02/22 Tamsulosin HCl [Flomax] 0.4 mg PO DAILY 03/30/21 04/02/22 predniSONE [Deltasone] 8 mg PO DAILY 03/31/21 04/02/22 Calcium Carbonate/Vitamin D3 1 each PO DAILY 06/15/21 04/02/22 [Calcium 600-Vit D3 200 Tablet] Metoprolol Succinate 100 mg PO DAILY 06/24/21 04/02/22 Apixaban [Eliquis] 2.5 mg PO BID 11/09/21 04/02/22 Amiodarone [Pacerone] 200 mg PO DAILY 04/02/22 04/02/22 Ofloxacin 0.3% Ophth Drops 1 drops LEFTEYE DAILY 04/02/22 04/02/22 [Ocuflox 0.3% Ophth Drops] prednisoLONE 1% OPHTH DROPS [Pred 1 drops LEFTEYE DAILY 04/02/22 04/02/22 Forte 1% Ophth Drops] - Allergies Allergies/Adverse Reactions: Allergies Allergy/AdvReac Type Severity Reaction Status Date / Time No Known Drug Allergies Allergy Verified 04/02/22 05:30 - Social History Does the pt smoke?: No Smoking Status: Never smoker PD ED PE NORMAL - Vitals Vital signs reviewed: Yes - General General: Alert and oriented X 3, No acute distress, Well developed/nourished - Cardiac Cardiac: RRR - Abdomen Abdomen: Normal bowel sounds, Soft, Non tender, Non distended - Neuro Neuro: Alert and oriented X 3 PD ED PE EXPANDED - Rectal Rectal: Heme Occult Neg - QC+, Hemorrhoid (2-3 left perianal hemorrhoids; no discoloration, soft, reducible and no active bleeding. there is significant excoration adjacent to the hemorrhoids. ), Other (right buttock decubits ulcers , stage II). No: Mass Results - Vitals Vitals: Vital Signs - 24 hr 04/02/22 04/02/22 04/02/22 10:13 10:29 11:56 Temperature 37.0 C 37.2 C 37.2 C Heart Rate Heart Rate [ 97 96 76 Monitoring electrodes] Respiratory 15 15 12 Rate Blood Pressure Blood Pressure 82/40 L 91/47 L 106/59 L [Right Brachial artery] O2 Saturation 99 98 100 04/02/22 04/02/22 04/02/22 11:57 12:58 13:00 Temperature 37.2 C Heart Rate 76 77 Heart Rate [ 77 Monitoring electrodes] Respiratory 13 14 13 Rate Blood Pressure 106/59 L 110/57 L Blood Pressure 110/57 L [Right Brachial artery] O2 Saturation 100 99 100 04/02/22 04/02/22 04/02/22 13:15 14:49 15:00 Temperature 36.9 C 37.2 C Heart Rate 78 Heart Rate [ 80 75 Monitoring electrodes] Respiratory 12 11 L 19 Rate Blood Pressure 129/65 Blood Pressure 109/59 L 115/62 [Right Brachial artery] O2 Saturation 99 100 97 Oxygen O2 Source Room air - Labs Labs: Microbiology 04/02/22 06:06 Occult Blood - Final Stool Laboratory Tests 04/02/22 04/02/22 04/02/22 05:49 05:49 05:49 WBC 2.8 L RBC 1.87 L Hgb 6.3 L* Hct 19.8 L* MCV 105.9 H MCH 33.7 H MCHC 31.8 L RDW 20.5 H Plt Count 40 L MPV 9.6 Neut # (Auto) Not Reportable Lymph # (Auto) Not Reportable Cowley # (Auto) Not Reportable Eos # (Auto) Not Reportable Baso # (Auto) Not Reportable Absolute Nucleated RBC Not Reportable Total Counted 100 Band Neuts % (Manual) 6 Abnorm Lymph % (Manual) 0 Nucleated RBC % Not Reportable Neutrophils # (Manual) 2.1 Lymphocytes # (Manual) 0.6 L Monocytes # (Manual) 0.1 Eosinophils # (Manual) 0.0 Basophils # (Manual) 0.0 Differential Comment MANUAL DIFFERENTIAL WBC Morphology 1+ TOXIC GRANULATION Platelet Estimate DECREASED (<130,000) RBC Morph Micro Appear 1+ OVALOCYTES PT 12.8 H INR 1.2 Sodium Potassium Chloride Carbon Dioxide Anion Gap BUN Creatinine Estimated GFR (MDRD) Glucose Calcium Total Bilirubin AST ALT Alkaline Phosphatase Total Protein Albumin Globulin Albumin/Globulin Ratio Lipase Urine Color Urine Clarity Urine pH Ur Specific [place] Urine Protein Urine Glucose (UA) Urine Ketones Urine Occult Blood Urine Nitrite Urine Bilirubin Urine Urobilinogen Ur Leukocyte Esterase Urine RBC Urine WBC Ur Squamous Epith Cells Urine Bacteria Urine Yeast Ur Microscopic Review Urine Culture Comments SARS-CoV-2 (PCR) Blood Type O POSITIVE Antibody Screen NEGATIVE Crossmatch IS Only See Detail 04/02/22 04/02/22 04/02/22 05:49 11:40 14:53 WBC RBC Hgb Hct MCV MCH MCHC RDW Plt Count MPV Neut # (Auto) Lymph # (Auto) Cowley # (Auto) Eos # (Auto) Baso # (Auto) Absolute Nucleated RBC Total Counted Band Neuts % (Manual) Abnorm Lymph % (Manual) Nucleated RBC % Neutrophils # (Manual) Lymphocytes # (Manual) Monocytes # (Manual) Eosinophils # (Manual) Basophils # (Manual) Differential Comment WBC Morphology Platelet Estimate RBC Morph Micro Appear PT INR Sodium 136 Potassium 3.2 L Chloride 107 Carbon Dioxide 22 Anion Gap 7.0 BUN 23 H Creatinine 1.2 Estimated GFR (MDRD) 60 L Glucose 101 H Calcium 7.9 L Total Bilirubin 0.6 AST 19 ALT 21 Alkaline Phosphatase 63 Total Protein 5.3 L Albumin 2.7 L Globulin 2.6 Albumin/Globulin Ratio 1.0 Lipase 21 L Urine Color RED/BLOODY Urine Clarity TURBID Urine pH 6.0 Ur Specific [place]ell 1.025 Urine Protein >=300 H Urine Glucose (UA) NEGATIVE Urine Ketones NEGATIVE Urine Occult Blood LARGE H Urine Nitrite NEGATIVE Urine Bilirubin NEGATIVE Urine Urobilinogen 0.2 (NORMAL) Ur Leukocyte Esterase NEGATIVE Urine RBC TNTC H Urine WBC 6-10 H Ur Squamous Epith Cells NONE SEEN Urine Bacteria None Seen Urine Yeast PRESENT Ur Microscopic Review INDICATED Urine Culture Comments NOT INDICATED SARS-CoV-2 (PCR) NOT DETECTED Blood Type Antibody Screen Crossmatch IS Only PD Medical Decision Making - ED course Complexity details: reviewed old records, reviewed results, re-evaluated patient, considered differential, d/w patient ED course: Hemorrhoids are noted on exam although there is no active bleeding noted. Hemoccult sent to lab and results guaiac negative although there was no visible stool on gloved finger. He says he has had obvious bright red blood per rectum over the past 3 days associated with perirectal pain. Is a significant anemia on today's blood tests, with hemoglobin of 6.3, down from 8.0 just 5 days ago. 2 units packed red blood cells are Ordered for transfusion but not started at the end of my shift. Patient had received 100 mcg of fentanyl en route from EMS. He is given 75 mcg IV fentanyl in the ED for recurrent rectal pain, followed by 0.5 mg IV Dilaudid. On reevaluation at end of my shift, he says he is finally feeling significant relief of his pain, although it is starting to recur and thus he is given 5 mg p.o. oxycodone which hopefully will provide longer acting relief. I discussed this case with Dr. Mccain ([facility] on-call surgery). He says that, provided patient does not have any more significant bleeding during ER observation and repeat H&H after his transfusions shows appropriate improvement, patient would be appropriate for discharge and can follow-up with Dr. Mccain in his office this coming week. I discussed this plan with the patient and he is comfortable with this plan provided he is given a prescription for something strong for his pain. He says he has had good results with pain relief in the past with oxycodone without untoward side effect including constipation, and thus I provided prescription for the oxycodone. Departure - Departure Disposition: [facility] DC/[place] Clinical Impression: Gross hematuria, Pancytopenia Anemia Qualifiers: Anemia type: other cause Condition: Serious Discharge Date/Time: 04/02/22 18:07
[2022-04-02] MEDS ORDERED: fentaNYL 100 MCG/2 ML VIAL IVP STA (05:45)
[2022-04-02 05:57] LABS: BASOPHILS % (AUTO) 0.4 %; EOSINOPHILS % (AUTO) 0.7 %; LYMPHOCYTES % (AUTO) 12.9 %; MEAN CORPUSCULAR HEMOGLOBIN 33.7 pg (27.0-31.0); MEAN CORPUSCULAR HGB CONC 31.8 g/dL (32.0-36.0); MEAN CORPUSCULAR VOLUME 105.9 fL (80.0-94.0); MEAN PLATELET VOLUME 9.6 fL (7.4-11.4); MONOCYTES % (AUTO) 11.2 %; NEUTROPHILS % (AUTO) 74.4 %; PLT - PLATELET COUNT 40 10^3/uL (130-450); RED BLOOD COUNT 1.87 10^6/uL (4.70-6.10); RED CELL DISTRIBUTION WIDTH 20.5 % (12.0-15.0); WHITE BLOOD COUNT 2.8 x10^3/uL (4.8-10.8)
[2022-04-02 06:03] LABS: HCT - HEMATOCRIT 19.8 % (42.0-52.0); HGB - HEMOGLOBIN 6.3 g/dL (14.0-18.0)
[2022-04-02 06:05] LABS: ABNORMAL LYMPHS % (MANUAL) 0 %
[2022-04-02 06:09] LABS: ALBUMIN 2.7 g/dL (3.2-5.5); BILIRUBIN,TOTAL 0.6 mg/dL (0.2-1.0); CALCIUM 7.9 mg/dL (8.5-10.3); CREATININE 1.2 mg/dL (0.6-1.2); POTASSIUM 3.2 mmol/L (3.5-5.0); TOTAL PROTEIN 5.3 g/dL (6.7-8.2)
[2022-04-02 06:10] LABS: INR 1.2 (0.8-1.2); PT - PROTHROMBIN TIME 12.8 secs (9.9-12.6)
[2022-04-02 06:22] LABS: BAND NEUTROPHILS % (MANUAL) 6 %; LYMPHOCYTES # (MANUAL) 0.6 10^3/uL (1.5-3.5); LYMPHOCYTES % (MANUAL) 21 %; MONOCYTES # (MANUAL) 0.1 10^3/uL (0.0-1.0); NEUTROPHILS # (MANUAL) 2.1 10^3/uL (1.5-6.6)
[2022-04-02 06:23] LABS: DIFFERENTIAL COMMENT MANUAL DIFFERENTIAL; PLATELET ESTIMATE, MANUAL DECREASED (<130,000) (NORMAL); WBC MORPHOLOGY (MULTIPLE) 1+ TOXIC GRANULATION (NORMAL)
[2022-04-02] MEDS ORDERED: HYDROmorphone 1 MG/ML CARPUJECT IVP STA ×2 (06:43→13:56)
[2022-04-02] MEDS ORDERED: oxyCODONE 5 MG TABLET PO STA ×2 (08:55→13:31)
--- NOTE | 2022-04-02 11:34 | ED Physician Documentation ---
ED Addendum - Addendum Addendum: Patient signed out to me by overnight physician.He is awaiting blood transfusion, Reassessment and discharge. General surgery has been consulted and does not feel he needs admission at this time. 04/02/22 11:33 Patient was found to have urinary retention. Juarez catheter was placed. Patient states he does have a urologist he can follow with. 04/02/22 13:36 Asked to the bedside by RN. She was emptying his catheter when she noticed that he has gross hematuria. On further discussion, patient states that he has had blood in his urine for a long time and that a urologist in [place] told him not to worry about it. He is unsure of how long it has been getting worse. When I asked him further about the blood he is saying when he goes to the bathroom he thinks it could be from his urine and not his rectum. Discussed plan for bladder irrigation and imaging. 04/02/22 14:22 D/W Oncologist (Dr. Misbah León) - Recurrent presentation with gross hematuria, urinary retention requiring CBI. Reviewed current labs. Agrees with blood transfusion the patient is already receiving. Also discussed concerns for his thrombocytopenia. Dr. León Recommends transfusing platelets. Aware that it takes 4 to 5 hours to receive them at [facility]. Pt has been seen previously by Urology at , Dr. Erazo. Note from 05/24/21 ASSESSMENT/PLAN: Koko Zheng is a 70 year old male with PMH listed above who presents today for evaluation and management of the followin. Gross hematuria: Has been intermittent, improved earlier this year but now worsened again. Likely still 2/2 cytoxan-related hemorrhagic cystits, exacerbated by ongoing thrombocytopenia and anemia. We again reviewed the natural history of hemorrhagic cystitis as it relates to medication side effects. He is still voiding without difficulty, emptying well with low PVR and able to pass any clots that occur. He hematuria may be contributing to ongoing anemia and thrombocytopenia but is more like a result of them rather than the cuase. We reviewed options for further management of hemorrhagic cystitis, namely hyperbaric oxygen therapy and intravesical instillations. If he were to consider further therapy now we discussed my recommendation for hyperbaric oxygen therapy. Intravesical instillations can have significant side effects and are traditionally reserved for more dire situations. After discussion, plan is as follows: - Continue to monitor hematuria for now - Recommend maintaining higher Hb and platelet levels in an attempt to limit hematuria, ideally Plt > 50-100K consistently. I will send a note to his primary team to let them know these recommendations. No indication for surgical intervention unless clot retention/obstruction or if cause of persistent anemia/thrombocytopenia thought to be primarily hematuria. - No obvious urologic cause of unilateral low back pain, recommend discussing with primary team - Consider hyperbaric oxygen therapy once acute hematuria resolves - RTC in 6 months for re-evaluation, sooner if indicated Total time of visit was approximately 30 minutes of which > 50% was spent in counseling and or coordination of care. Aditya Erazo MD Speech And Language Specialist, Department of Urology [facility] 04/02/22 15:39 1539 - D/W Dr. Cramer (Urology, ) - Agrees with plan for holding Eliquis, transfusing and states he would likely need 1 to 2 days of CBI with a void trial and discharge home with catheter removed as the balloon can also be irritating and causing bleeding. This time he does not feel he needs transfer due to prolonged transfer times to their facility which would likely be in excess of 4 days and by that time the patient would likely be ready to go home and they would not be doing anything differently for him. EKG: Time 1545 - Rate 79, normal sinus rhythm, no STEMI, motion artifact in V2 04/02/22 16:30 - Discussed with Dr. Kitchen who will admit the patient for further management. Departure - Departure Disposition: 66 [facility] DC/Xfer Clinical Impression: Gross hematuria, Pancytopenia Anemia Qualifiers: Anemia type: other cause Condition: Serious
[2022-04-02 11:55] LABS: GLUCOSE, URINE (UA) NEGATIVE (NEGATIVE); KETONES,URINE (UA) NEGATIVE (NEGATIVE); LEUKOCYTE ESTERASE, URINE NEGATIVE (NEGATIVE); NITRITE,URINE NEGATIVE (NEGATIVE); OCCULT BLOOD,URINE LARGE (NEGATIVE); PROTEIN,URINE >=300 mg/dL (NEGATIVE); UROBILINOGEN,URINE 0.2 (NORMAL) E.U./dL (NORMAL)
[2022-04-02 12:00] LABS: BILIRUBIN,URINE NEGATIVE (NEGATIVE); CLARITY,URINE TURBID (CLEAR); ICTOTEST,URINE NEGATIVE
[2022-04-02 12:01] LABS: RBC,URINE TNTC /HPF (0-5); SQUAMOUS EPITHELIAL CELL,UR NONE SEEN (<= Few)
[2022-04-02 12:02] LABS: BACTERIA,URINE None Seen /HPF (None Seen); YEAST,URINE PRESENT
[2022-04-02] MEDS ORDERED: iohexoL-300 100 ML VIAL ONE (13:46)
[2022-04-02] MEDS ORDERED: LIDOCAINE 2% URO-JET 5 ML SYRINGE UR STA (14:06)
[2022-04-02] MEDS: cefTRIAXone 1 GM VIAL IVP SCH (14:09)
[2022-04-02] MEDS ORDERED: POTASSIUM CHLORIDE 20 MEQ TABLET PO STA (15:05)
[2022-04-02] MEDS ORDERED: iohexoL-300 100 ML VIAL IVP ONE (15:24)
[2022-04-02] MEDS: HYDROmorphone 1 MG/ML CARPUJECT IVP PRN ×2 (15:53→23:54)
--- NOTE | 2022-04-02 15:55 | CT Report ---
PROCEDURE: ABDOMEN/PELVIS W INDICATIONS: gross hematuria CONTRAST: 100ml omni 300 TECHNIQUE: After the administration of IV contrast, 5 mm thick sections acquired from the diaphragms to the symp hysis. 5 mm thick coronal and sagittal reformats were acquired. For radiation dose reduction, the f ollowing was used: automated exposure control, adjustment of mA and/or kV according to patient size. COMPARISON: 03/01/2022 FINDINGS: Image quality: Excellent. ABDOMEN: Lung bases: Lung bases are clear. Heart size is normal. Coronary artery and aortic valvular calcif ication. Solid organs: Liver and spleen are normal in size and enhancement. Gallbladder contains a small gena unt of dependent hyperdense material, granular stones or hyperdense bile. Biliary system is non dila art. Pancreas enhances normally. No adrenal nodules. Kidneys demonstrate normal size and enhanceme nt, without hydronephrosis. Several left renal cysts of varying sizes. No intrarenal calcifications. No hydroureter or ureteral calcifications. Peritoneum and bowel: Stomach and small bowel loops are within normal limits. The distal colon is dec ompressed and the wall is mildly diffusely thickened. Mild diffuse mucosal hyperemia. There are sever al diverticula. Nodes and vessels: No retroperitoneal or mesenteric adenopathy by size criteria. Aorta and inferior vena cava are normal in size. Miscellaneous: No ventral hernias. PELVIS: Genitourinary: There is a Juarez catheter in the urinary bladder and air in the anterior portion. The wall is asymmetrically thickened. There is a collection of calcifications along the mucosal surface i n the right posterior superior margin as well as to dependent calcifications in the right lateral asp ect. The prostate gland is normal size. Miscellaneous: No inguinal hernias or adenopathy. Bones: No suspicious bony lesions. Bilateral L5 pars defects and grade 1 anterolisthesis. Schmorl's nodes in the lower thoracic spine. No vertebral body compression fractures. IMPRESSION: 1. Several calcifications within the urinary bladder which also demonstrates asymmetric, slightly nathanael picious wall thickening. These may be due to stasis, cystitis, recently passed renal calculi, or neop lasm. Cystoscopy is suggested. 2. Left renal cysts. 3. Mild hyperemia and wall thickening involving long segment of the distal colon. Correlate with any bowel habit changes as this may indicate acute or subacute colitis. 4. Granular cholelithiasis or small amount of dependent hyperdense bile. Reviewed by: Adriana Chou MD on 04/02/2022 2:54 PM ROSA Approved by: Adriana Chou MD on 04/02/2022 2:54 PM ROSA Station ID: [id number]
[2022-04-02] MEDS ORDERED: ONDANSETRON ODT 4 MG TABLET TL PRN (16:39)
[2022-04-02] MEDS ORDERED: SODIUM CHLORIDE 0.9% 1,000 ML IV SCH (17:00)
--- NOTE | 2022-04-02 17:17 | HISTORY & PHYSICAL EXAMINATION ---
Chief Complaint - Chief Complaint Chief Complaint: hemrroidal bleeding History of Present Illness - Admitted From Admitted From:: home through ED - History Obtained From Records Reviewed: electronic chart History obtained from: chart and pt Exam Limitations: none - History of Present Illness HPI Comment/Other: Koko Zheng is an 71 yo male with PMH of AML/MDS status post stem cell transplant, pancytopenia requiring blood transfusions, Afib, Aflutter, CHF, diffuse alveolar hemorrhage, history of wagener's granulomatosis, DM, CKD stage III, hematuria from cystitis, L knee infection s/p explant in February 2022. He presented to the ED for rectal bleeding, no bleeding was found in the ED but due to low H&H a transfusion was planned. Pt reported that he couldn't urinate. Martin catheter was placed and gross hematuria was noted. He is being admitted for anemia, hematuria requiring CBI. Mr Zheng goes by Koko or Chidi, his chief complaint is his painful hemorrhoids. He is a good historian and has insight into his medical issues but perseverates on his hemroid bleeding and consequent anemia. History - Past Medical History Cardiovascular: reports: Congestive heart failure, Coronary artery disease, Atrial fibrillation Respiratory: reports: None Neuro: reports: None Endocrine/Autoimmune: reports: None, Other (ALS/MDS sp stem cell replacement ) GI: reports: GERD, Hemorrhoids : reports: Incontinence, Chronic bladder infection, Frequency HEENT: reports: Other (cataracts sp cataract surgery ) Psych: reports: None Musculoskeletal: reports: Fatigue, Other (weakness uses a wheel chair, states he can get up and walk but is worried about falls ) Derm: reports: None, Other (paper thin skin loss of sub q tissue ) MRSA Hx?: No - Past Surgical History Ortho: reports: Knee replacement (L) HEENT: reports: Cataracts - Family & Social History Family History: Mother: , Father: Family History Comment/Other: Patient report his father from cancer at age 70. His mother from major heart problem at age 70 as well. Living Situation: Alone, Other (has close friend from [place] who can come help him ) Social History Notes: Patient report he never smoke, he has no alcohol or drug issue - Substance History Use: Uses substance without health or social issues: NONE - POLST Patient has POLST: No Meds/Allgy - Home Medications Home Medications: Ambulatory Orders Medication Instructions Recorded Confirmed Rosuvastatin Calcium [Crestor] 10 mg PO DAILY 03/30/21 04/02/22 Tamsulosin HCl [Flomax] 0.4 mg PO DAILY 03/30/21 04/02/22 predniSONE [Deltasone] 8 mg PO DAILY 03/31/21 04/02/22 Calcium Carbonate/Vitamin D3 1 each PO DAILY 06/15/21 04/02/22 [Calcium 600-Vit D3 200 Tablet] Metoprolol Succinate 100 mg PO DAILY 06/24/21 04/02/22 Apixaban [Eliquis] 2.5 mg PO BID 11/09/21 04/02/22 Amiodarone [Pacerone] 200 mg PO DAILY 04/02/22 04/02/22 Ofloxacin 0.3% Ophth Drops 1 drops LEFTEYE DAILY 04/02/22 04/02/22 [Ocuflox 0.3% Ophth Drops] prednisoLONE 1% OPHTH DROPS [Pred 1 drops LEFTEYE DAILY 04/02/22 04/02/22 Forte 1% Ophth Drops] - Allergies Allergies/Adverse Reactions: Allergies Allergy/AdvReac Type Severity Reaction Status Date / Time No Known Drug Allergies Allergy Verified 04/02/22 05:30 Review of Systems - Constitutional Constitutional: reports: Fatigue, Weakness, Poor appetite, Weight loss (s/p cancer was 175lbs now 145lbs) - Eyes Eyes: reports: Corrective lenses, Other (cataracts) - Ears, Nose & Throat Ears, Nose & Throat: reports: Hearing aids, Nosebleeds - Cardiovascular Cariovascular: reports: Irregular heart rate, Lightheadedness - Respiratory Respiratory: reports: Cough (every morning no sputum production) - Gastrointestinal Gastrointestinal: reports: Rectal bleeding - Genitourinary Genitourinary: reports: Frequency, Urgency, Hematuria - Musculoskeletal Musculoskeletal: reports: Stiffness, Limited range of motion - Neurological Neurological: reports: General weakness - Hematologic/Lymphatic Hematologic/Lymphatic: reports: Anemia, Blood clots, Recurrent infections - All Other Systems All Other Systems: reports: Reviewed and negative Exam - Vital Signs Vital Signs: Vital Signs x48h Temp Pulse Pulse Resp BP BP Pulse Ox 04/02/22 16:58 86 12 101/61 99 04/02/22 15:00 78 19 129/65 97 04/02/22 14:49 37.2 C 75 11 L 115/62 100 04/02/22 13:15 36.9 C 80 12 109/59 L 99 04/02/22 13:00 77 13 110/57 L 100 04/02/22 12:58 37.2 C 77 14 110/57 L 99 04/02/22 11:57 76 13 106/59 L 100 04/02/22 11:56 37.2 C 76 12 106/59 L 100 04/02/22 10:29 37.2 C 96 15 91/47 L 98 04/02/22 10:13 37.0 C 97 15 82/40 L 99 04/02/22 10:00 80 14 82/40 L 98 - Physical Exam General Appearance: positive: Mild distress (cold, wants lots of blankets, prefers to lie on his side due to hemrrhoids) Eyes Bilateral: positive: Other (eye patch L eye no tear gland per pt) Respiratory: positive: Chest non-tender, Breath sounds nml Cardiovascular: positive: Regular rate & rhythm Peripheral Pulses: positive: 2+ Abdomen: positive: Nml bowel sounds Back: positive: Nml inspection Skin: positive: Warm, Pallor, Other (coccyx pressure wound) Extremities: positive: Non-tender, Nml appearance, No pedal edema Neurologic/Psychiatric: positive: Oriented x3 Conclusion/Plan - Problem List (1) Hemorrhagic cystitis Conclusion/Plan: went to ED fro hemrroidal bleeding, no bleeding from rectum found, gross hematuria when martin placed. transfused PRBCs x2 Plan: CBI until clear x24 hrs, supportive care to include pain medication, electrolyte replacement, IV fluid, CBC and BMP in morning, ceftriaxone (2) Anemia Conclusion/Plan: Gross hematuria, H&H 6.3/19.8, transfused PRBCs x2 in ED Plan: recheck CBC tonight Qualifiers: Anemia type: other cause (3) Diastolic heart failure Conclusion/Plan: diastolic dysfunction noted on 12/10/2021 ECHO see summary above Plan: Monitor I&O, assess for retained fluid legs, lung sounds, may need to diuretics Qualifiers: Heart failure chronicity: chronic Qualified Code(s): I50.32 - Chronic diastolic (congestive) heart failure (4) Chronic kidney disease Conclusion/Plan: Estimated GFR 60 this admission Qualifiers: Chronic kidney disease stage: stage 3 (moderate) (5) Afib Conclusion/Plan: Afib, Aflutter, on apixaban at home, EKG in ED shows SR with condition abnormality possible old inferior infarct. Plan: hold apixaban due to gross blood in urine and need for transfusions. Qualifiers: Atrial fibrillation type: paroxysmal Qualified Code(s): I48.0 - Paroxysmal atrial fibrillation (6) History of DVT in adulthood Conclusion/Plan: history of RLE DVT. +2 pedal pulse today. Plan: no anticoagulation given his anemia, SCDs ordered (7) Hypokalemia Conclusion/Plan: K 3.2 this afternoon, anemia due to hemorrhage, multiple transfusions. Plan: replace as needed, BMP this evening. - Lab Results Fish Bones: 04/02/22 05:49 04/02/22 05:49 - Diagnostic Imaging Results Diagnostic Imaging Results: positive: Final report reviewed, Other Diagnostic Imaging Results Comments: ECHO 12/10/2021 Normal LV function EF 55-60% Grade I diastolic dysfunction No , mild slcerosis mildly dilated RV size and systolic function mild to moderate mitral regurg CT abdomen pelvis Impression: 1. Several calcifications within the urinary bladder which also demonstrates asymmetric, slightly suspicious wall theickening. These may be due to stasis, cystitis, recently passed renal calculi, or neoplasm. Cystoscopy is suggested. 2. Left renal cysts 3. Mild hyperemia and wall thickening involving long segment of the distal colon. Correlate with any bowel habit changes as this asha indicate acute or lund bacute colitis. 4. Granular choleiethiasis or small amount of dependent hyperdense bile. - EKG Results EKG Interpreted Independently: Yes Core Measures - Anticipated LOS I expect patient to be DC'd or transferred within 96 hours.: Yes - DVT/VTE - Prophylaxis VTE/DVT Device ordered at admit?: Yes
[2022-04-02] MEDS: SODIUM CHLORIDE FLUSH 0.9% 10 ML SYRINGE IVP SCH ×2 (19:33→23:54)
[2022-04-02 21:02] LABS: HCT - HEMATOCRIT 24.2 % (42.0-52.0); MEAN CORPUSCULAR HEMOGLOBIN 32.5 pg (27.0-31.0); MEAN CORPUSCULAR HGB CONC 33.1 g/dL (32.0-36.0); MEAN CORPUSCULAR VOLUME 98.4 fL (80.0-94.0); MEAN PLATELET VOLUME 8.9 fL (7.4-11.4); RED BLOOD COUNT 2.46 10^6/uL (4.70-6.10); RED CELL DISTRIBUTION WIDTH 22.5 % (12.0-15.0); WHITE BLOOD COUNT 3.6 x10^3/uL (4.8-10.8)
[2022-04-03] MEDS: HYDROmorphone 0.5 MG/0.5 ML SYRINGE IVP PRN ×3 (02:58→08:58)
[2022-04-03] MEDS: SODIUM CHLORIDE FLUSH 0.9% 10 ML SYRINGE IVP PRN ×8 (02:58→22:46)
[2022-04-03 05:56] LABS: BASOPHILS % (AUTO) 0.3 %; EOSINOPHILS % (AUTO) 0.3 %; HCT - HEMATOCRIT 26.7 % (42.0-52.0); HGB - HEMOGLOBIN 8.9 g/dL (14.0-18.0); LYMPHOCYTES # (AUTO) 0.6 10^3/uL (1.5-3.5); LYMPHOCYTES % (AUTO) 16.8 %; MEAN CORPUSCULAR HEMOGLOBIN 33.1 pg (27.0-31.0); MEAN CORPUSCULAR HGB CONC 33.3 g/dL (32.0-36.0); MEAN CORPUSCULAR VOLUME 99.3 fL (80.0-94.0); MEAN PLATELET VOLUME 9.3 fL (7.4-11.4); MONOCYTES # (AUTO) 0.3 10^3/uL (0.0-1.0); MONOCYTES % (AUTO) 9.3 %; NEUTROPHILS # (AUTO) 2.4 10^3/uL (1.5-6.6); NEUTROPHILS % (AUTO) 71.8 %; PLT - PLATELET COUNT 63 10^3/uL (130-450); RED BLOOD COUNT 2.69 10^6/uL (4.70-6.10); RED CELL DISTRIBUTION WIDTH 23.4 % (12.0-15.0); WHITE BLOOD COUNT 3.3 x10^3/uL (4.8-10.8)
[2022-04-03 06:00] LABS: SLIDE REVIEW? Indicated
[2022-04-03 06:03] LABS: CALCIUM 8.4 mg/dL (8.5-10.3); CREATININE 1.1 mg/dL (0.6-1.2)
[2022-04-03 06:23] LABS: PLATELET ESTIMATE, MANUAL DECREASED (<130,000) (NORMAL)
--- NOTE | 2022-04-03 07:29 | PHARMACY PROGRESS NOTE ---
- Best Possible Medication History Admit Date and Time: 04/02/22 1640 Processed by: Nursing Medication History completed: Yes As the person ultimately responsible for medication therapy, providers are able to order a medication from an existing home medication list in [facility] via the "Reconcile Routine" prior to Confirmation of that medication by sales support coordinator. Such practice is discouraged except when the physician, in their clinical judgment, deems that a medical need exists for a medication without regard to previous use.
--- NOTE | 2022-04-03 08:17 | PROVIDER PROGRESS NOTE ---
Subjective - Prog Note Date Prog Note Date: 04/03/22 Prog Note Time: 08:15 - Subjective Subjective: 71 yo male with PMH of AML/MDS status post stem cell transplant, pancytopenia requiring blood transfusions, Afib, Aflutter, CHF, diffuse alveolar hemorrhage, history of wagener's granulomatosis, CKD stage III, hematuria from cystitis, L knee infection s/p explant in February 2022. Admitted for anemia due to hemorrhagic cystitis. I encounter Koko lying in bed sleeping. He awakes when I enter responds slowly to questions. He groans in pain, told nursing this am that he was having bladder pain. Pain meds increased, they appear to be working. Current Medications - Current Medications Current Medications: Acetaminophen (Acetaminophen 325 Mg Tablet) 650 mg PO Q4HR PRN PRN Reason: Pain 1 to 4, or Fever Ceftriaxone Sodium (Ceftriaxone 1 Gm Vial) 1 gm IVP DAILY [facility] Last Admin: 04/02/22 14:09 Dose: 1 gm Hydromorphone HCl (Hydromorphone 1 Mg/Ml Carpuject) 0.5 mg IVP Q2HR PRN PRN Reason: PAIN Last Admin: 04/02/22 23:54 Dose: 0.5 mg Hydromorphone HCl (Hydromorphone 0.5 Mg/0.5 Ml Syringe) 0.5 mg IVP Q2H PRN PRN Reason: Pain 8 to 10 Last Admin: 04/03/22 05:53 Dose: 0.5 mg Ondansetron HCl (Ondansetron Odt 4 Mg Tablet) 4 mg TL Q6HR PRN PRN Reason: Nausea / Vomiting Ondansetron HCl (Ondansetron 4 Mg/2 Ml Vial) 4 mg IVP Q6HR PRN PRN Reason: Nausea / Vomiting Oxycodone HCl (Oxycodone 5 Mg Tablet) 5 mg PO Q4HR PRN PRN Reason: Pain 5 to 7 Sodium Chloride (Sodium Chloride Flush 0.9% 10 Ml Syringe) 10 ml IVP PRN PRN PRN Reason: NEEDED PER PROVIDER ORDERS Last Admin: 04/03/22 05:53 Dose: 10 ml Sodium Chloride (Sodium Chloride Flush 0.9% 10 Ml Syringe) 10 ml IVP 0100,0900,1700 [facility] Last Admin: 01/21/23 23:54 Dose: 10 ml Objective - Vital Signs/Intake & Output Reviewed Vital Signs: Yes Vital Signs: Vital Signs Temp 37.2 C 04/03/22 00:00 Pulse 98 04/03/22 00:00 Resp 18 04/03/22 00:00 BP 117/64 04/03/22 00:00 Pulse Ox 100 04/03/22 00:00 O2 Flow Rate Intake & Output: Intake & Output 03/31/22 04/01/22 04/02/22 04/03/22 23:59 23:59 23:59 23:59 Intake Total 56424 34602 Output Total [id number] 62158 Balance -2304 75 - Objective General Appearance: positive: Mild distress (sleeping frail appearing man with L eye patch on glasses) Eyes Bilateral: positive: Normal inspection ENT: positive: No signs of dehydration Neck: positive: Nml inspection Respiratory: positive: Chest non-tender, Breath sounds nml Cardiovascular: positive: Regular rate & rhythm Peripheral Pulses: 2+ Radial (R), 2+ Radial (L) Abdomen: positive: Non-tender, Abnml bowel sounds (hypoactive) Skin: positive: Color nml (thin skin multiple small sores, forehead, neck) Extremities: positive: Non-tender Neurologic/Psychiatric: positive: Oriented x3 - Lab Results Fish Bones: 04/03/22 05:12 04/03/22 05:12 Other Labs: Lab Results x24hrs 04/03/22 04/03/22 04/02/22 Range/Units 05:12 05:12 20:57 WBC 3.3 L 3.6 L (4.8-10.8) x10^3/uL RBC 2.69 L 2.46 L (4.70-6.10) 10^6/uL Hgb 8.9 L 8.0 L (14.0-18.0) g/dL Hct 26.7 L 24.2 L (42.0-52.0) % MCV 99.3 H 98.4 H (80.0-94.0) fL MCH 33.1 H 32.5 H (27.0-31.0) pg MCHC 33.3 33.1 (32.0-36.0) g/dL RDW 23.4 H 22.5 H (12.0-15.0) % Plt Count 63 L 62 L (130-450) 10^3/uL MPV 9.3 8.9 (7.4-11.4) fL Neut # (Auto) 2.4 (1.5-6.6) 10^3/uL Lymph # (Auto) 0.6 L (1.5-3.5) 10^3/uL [place] # (Auto) 0.3 (0.0-1.0) 10^3/uL Eos # (Auto) 0.0 (0.0-0.7) 10^3/uL Baso # (Auto) 0.0 (0.0-0.1) 10^3/uL Absolute Nucleated RBC 0.00 x10^3/uL Nucleated RBC % 0.0 /100WBC Manual Slide Review Indicated Platelet Estimate DECREASED (<130,000) (NORMAL) RBC Morph Micro Appear 1+ OVALOCYTES (NORMAL) Sodium 139 (135-145) mmol/L Potassium 4.0 (3.5-5.0) mmol/L Chloride 108 (101-111) mmol/L Carbon Dioxide 22 (21-32) mmol/L Anion Gap 9.0 (6-13) BUN 16 (6-20) mg/dL Creatinine 1.1 (0.6-1.2) mg/dL Estimated GFR (MDRD) 66 L (>89) Glucose 97 (70-100) mg/dL Calcium 8.4 L (8.5-10.3) mg/dL Urine Color Urine Clarity (CLEAR) Urine pH (5.0-7.5) PH Ur Specific [place] (1.002-1.030) Urine Protein (NEGATIVE) mg/dL Urine Glucose (UA) (NEGATIVE) mg/dL Urine Ketones (NEGATIVE) mg/dL Urine Occult Blood (NEGATIVE) Urine Nitrite (NEGATIVE) Urine Bilirubin (NEGATIVE) Urine Urobilinogen (NORMAL) E.U./dL Ur Leukocyte Esterase (NEGATIVE) Urine RBC (0-5) /HPF Urine WBC (0-3) /HPF Ur Squamous Epith Cells (<= Few) Urine Bacteria (None Seen) /HPF Urine Yeast Ur Microscopic Review Urine Culture Comments SARS-CoV-2 (PCR) Blood Type Antibody Screen Crossmatch IS Only 04/02/22 04/02/22 04/02/22 Range/Units 14:53 11:40 05:49 WBC (4.8-10.8) x10^3/uL RBC (4.70-6.10) 10^6/uL Hgb (14.0-18.0) g/dL Hct (42.0-52.0) % MCV (80.0-94.0) fL MCH (27.0-31.0) pg MCHC (32.0-36.0) g/dL RDW (12.0-15.0) % Plt Count (130-450) 10^3/uL MPV (7.4-11.4) fL Neut # (Auto) (1.5-6.6) 10^3/uL Lymph # (Auto) (1.5-3.5) 10^3/uL [place] # (Auto) (0.0-1.0) 10^3/uL Eos # (Auto) (0.0-0.7) 10^3/uL Baso # (Auto) (0.0-0.1) 10^3/uL Absolute Nucleated RBC x10^3/uL Nucleated RBC % /100WBC Manual Slide Review Platelet Estimate (NORMAL) RBC Morph Micro Appear (NORMAL) Sodium (135-145) mmol/L Potassium (3.5-5.0) mmol/L Chloride (101-111) mmol/L Carbon Dioxide (21-32) mmol/L Anion Gap (6-13) BUN (6-20) mg/dL Creatinine (0.6-1.2) mg/dL Estimated GFR (MDRD) (>89) Glucose (70-100) mg/dL Calcium (8.5-10.3) mg/dL Urine Color RED/BLOODY Urine Clarity TURBID (CLEAR) Urine pH 6.0 (5.0-7.5) PH Ur Specific [place] 1.025 (1.002-1.030) Urine Protein >=300 H (NEGATIVE) mg/dL Urine Glucose (UA) NEGATIVE (NEGATIVE) mg/dL Urine Ketones NEGATIVE (NEGATIVE) mg/dL Urine Occult Blood LARGE H (NEGATIVE) Urine Nitrite NEGATIVE (NEGATIVE) Urine Bilirubin NEGATIVE (NEGATIVE) Urine Urobilinogen 0.2 (NORMAL) (NORMAL) E.U./dL Ur Leukocyte Esterase NEGATIVE (NEGATIVE) Urine RBC TNTC H (0-5) /HPF Urine WBC 6-10 H (0-3) /HPF Ur Squamous Epith Cells NONE SEEN (<= Few) Urine Bacteria None Seen (None Seen) /HPF Urine Yeast PRESENT Ur Microscopic Review INDICATED Urine Culture Comments NOT INDICATED SARS-CoV-2 (PCR) NOT DETECTED Blood Type O POSITIVE Antibody Screen NEGATIVE Crossmatch IS Only See Detail ABX Reporting Has patient been on IV antibiotics over the past 48 hours?: Yes Assessment/Plan - Problem List (1) Hemorrhagic cystitis Impression: gross hematuria when martin placed yesterday s/p 2 units. Today H&H is improved H&H 8.9/.7 continue current tx. Plan: CBI for 2 days, supportive care to include pain medication, electrolyte replacement, IV fluid, check CBC and BMP every morning, abx- ceftriaxone (2) Anemia Impression: Gross hematuria, H&H 6.3/19.8 on admit, transfused PRBCs x2 in ED. Today H&H ./ .7 Plan: check CBC with am labs Qualifiers: Anemia type: other cause (3) Diastolic heart failure Impression: diastolic dysfunction noted on 12/10/2021 ECHO see summary above Plan: Monitor I&O, assess for retained fluid legs, lung sounds, may need to diuretics Qualifiers: Heart failure chronicity: chronic Qualified Code(s): I50.32 - Chronic diastolic (congestive) heart failure (4) Afib Impression: Afib, Aflutter, on apixaban at home, EKG in ED shows SR with condition abnormality possible old inferior infarct. Plan: hold apixaban due to gross blood in urine and need for transfusions. Qualifiers: Atrial fibrillation type: paroxysmal Qualified Code(s): I48.0 - Paroxysmal atrial fibrillation (5) History of DVT in adulthood Impression: history of RLE DVT. +2 pedal pulse today. Plan: no anticoagulation given his anemia, SCDs ordered (6) Chronic kidney disease Impression: Estimated GFR 60 this admission Plan: no treatment Qualifiers: Chronic kidney disease stage: stage 3 (moderate) (7) Hypokalemia Impression: K 3.2 on admit, anemia due to hemorrhage, multiple transfusions. Today K+ is normal Plan: recheck BMP for morning labs
[2022-04-03] MEDS: SODIUM CHLORIDE FLUSH 0.9% 10 ML SYRINGE IVP SCH ×2 (08:58→17:28)
[2022-04-03] MEDS: cefTRIAXone 1 GM VIAL IVP SCH (09:00)
[2022-04-03] MEDS: ACETAMINOPHEN 325 MG TABLET PO PRN ×2 (09:07→17:25)
[2022-04-03] MEDS: HYDROmorphone 1 MG/ML CARPUJECT IVP PRN ×6 (10:42→22:46)
[2022-04-03] MEDS: cefTRIAXone 1 GM in SODIUM CHLORIDE 0.9% MINIBAG 100 ML IV SCH (10:47)
[2022-04-03] MEDS: WITCH HAZEL/GLYCERIN 1 PAD TOP PRN (20:58)
[2022-04-04] MEDS: oxyCODONE 5 MG TABLET PO PRN ×2 (02:51→18:22)
[2022-04-04] MEDS: ACETAMINOPHEN 325 MG TABLET PO PRN ×2 (02:51→20:32)
[2022-04-04] MEDS: SODIUM CHLORIDE FLUSH 0.9% 10 ML SYRINGE IVP SCH ×3 (02:51→17:05)
[2022-04-04] MEDS: HYDROmorphone 1 MG/ML CARPUJECT IVP PRN ×7 (02:51→20:32)
[2022-04-04] MEDS: SODIUM CHLORIDE FLUSH 0.9% 10 ML SYRINGE IVP PRN ×2 (05:33→08:11)
[2022-04-04 06:24] LABS: BASOPHILS % (AUTO) 0.9 %; EOSINOPHILS % (AUTO) 0.2 %; HCT - HEMATOCRIT 31.7 % (42.0-52.0); LYMPHOCYTES % (AUTO) 15.9 %; MEAN CORPUSCULAR HEMOGLOBIN 32.4 pg (27.0-31.0); MEAN CORPUSCULAR HGB CONC 31.5 g/dL (32.0-36.0); MEAN CORPUSCULAR VOLUME 102.6 fL (80.0-94.0); MEAN PLATELET VOLUME 9.7 fL (7.4-11.4); MONOCYTES % (AUTO) 7.8 %; NEUTROPHILS % (AUTO) 74.3 %; PLT - PLATELET COUNT 68 10^3/uL (130-450); RED BLOOD COUNT 3.09 10^6/uL (4.70-6.10); RED CELL DISTRIBUTION WIDTH 22.8 % (12.0-15.0); WHITE BLOOD COUNT 5.9 x10^3/uL (4.8-10.8)
[2022-04-04 06:36] LABS: CALCIUM 8.6 mg/dL (8.5-10.3); CREATININE 1.7 mg/dL (0.6-1.2); POTASSIUM 3.9 mmol/L (3.5-5.0)
[2022-04-04 06:40] LABS: ABNORMAL LYMPHS % (MANUAL) 0 %
[2022-04-04 06:50] LABS: BAND NEUTROPHILS % (MANUAL) 3 %; LYMPHOCYTES # (MANUAL) 0.8 10^3/uL (1.5-3.5); LYMPHOCYTES % (MANUAL) 14 %; MONOCYTES # (MANUAL) 0.6 10^3/uL (0.0-1.0); NEUTROPHILS # (MANUAL) 4.4 10^3/uL (1.5-6.6)
[2022-04-04 06:51] LABS: PLATELET ESTIMATE, MANUAL DECREASED (<130,000) (NORMAL); PLATELET MORPHOLOGY NORMAL APPEARANCE (NORMAL); WBC MORPHOLOGY (MULTIPLE) NORMAL APPEARANCE (NORMAL)
[2022-04-04 06:52] LABS: DIFFERENTIAL COMMENT MANUAL DIFFERENTIAL
--- NOTE | 2022-04-04 07:55 | PROVIDER PROGRESS NOTE ---
Subjective - Prog Note Date Prog Note Date: 04/04/22 Prog Note Time: 07:54 - Subjective Subjective: 71 yo male with PMH of AML/MDS status post stem cell transplant, pancytopenia requiring blood transfusions, Afib, Aflutter, CHF, diffuse alveolar hemorrhage, history of wagener's granulomatosis, CKD stage III, hematuria from cystitis, L knee infection s/p explant in February 2022. Admitted for anemia due to hemorrhagic cystitis. I encounter Chidi lying in bed in pain, with a blanket pulled up over his head. He reports the pain is in his urethra. I informed him that we can't take out the CBI today because we still saw blood clots in his urine when it was stopped. He is disengaged and minimally responds to me. Current Medications - Current Medications Current Medications: Acetaminophen (Acetaminophen 325 Mg Tablet) 650 mg PO Q4HR PRN PRN Reason: Pain 1 to 4, or Fever Last Admin: 04/04/22 02:51 Dose: 650 mg Heparin Sodium (Beef Lung) (Heparin Flush 50 Units/5 Ml Syringe) 30 - 50 unit IVP PRN PRN PRN Reason: Port Protocol (<24 hours) Hydromorphone HCl (Hydromorphone 1 Mg/Ml Carpuject) 1 mg IVP Q2HR PRN PRN Reason: PAIN Last Admin: 04/04/22 05:33 Dose: 1 mg Ceftriaxone Sodium 1 gm/ (Sodium Chloride) 100 mls @ 200 mls/hr IV DAILY JUJU Last Infusion: 04/03/22 11:20 Dose: Infused Ondansetron HCl (Ondansetron Odt 4 Mg Tablet) 4 mg TL Q6HR PRN PRN Reason: Nausea / Vomiting Ondansetron HCl (Ondansetron 4 Mg/2 Ml Vial) 4 mg IVP Q6HR PRN PRN Reason: Nausea / Vomiting Oxycodone HCl (Oxycodone 5 Mg Tablet) 5 mg PO Q4HR PRN PRN Reason: Pain 5 to 7 Last Admin: 04/04/22 02:51 Dose: 5 mg Sodium Chloride (Sodium Chloride Flush 0.9% 10 Ml Syringe) 10 ml IVP PRN PRN PRN Reason: NEEDED PER PROVIDER ORDERS Last Admin: 04/04/22 05:33 Dose: 10 ml Sodium Chloride (Sodium Chloride Flush 0.9% 10 Ml Syringe) 10 ml IVP 0100,0900,1700 JUJU Last Admin: 04/04/22 02:51 Dose: 10 ml Witch Kasey/Glycerin (Witch Kasey/Glycerin 1 Pad) 1 pad TOP PRN PRN PRN Reason: ITCHING Last Admin: 04/03/22 20:58 Dose: 1 pad Objective - Vital Signs/Intake & Output Reviewed Vital Signs: Yes Vital Signs: Vital Signs x48h Temp Pulse Resp BP Pulse Ox 04/04/22 05:42 36.6 C 131 H 16 116/59 L 97 04/04/22 00:00 37.1 C 120 H 18 104/48 L 94 Intake & Output: Intake & Output 04/01/22 04/02/22 04/03/22 04/04/22 23:59 23:59 23:59 23:59 Intake Total 35269 95252.000 2000 Output Total 57048 87839 2225 Balance -1686 -2350.000 -225 - Objective General Appearance: positive: Moderate distress (lying in bed, whimpering, with blanket up over his face, reports he is in pain.) Eyes Bilateral: positive: Other (R eye PERRL, L eye with eye patch over it.) Eyes: OS Abnormal pupil ENT: positive: Dry mucous membranes Neck: positive: Nml inspection Respiratory: positive: Chest non-tender, Breath sounds nml Cardiovascular: positive: Regular rate & rhythm, Other (tachycardic) Peripheral Pulses: 1+ Radial (R), 1+ Radial (L), 1+ Posterior tibialis (R), 1+ Posterior tibialis (L) Abdomen: positive: Non-tender Rectal: positive: Other (skin break down around perineum.) Back: positive: Nml inspection Skin: positive: Color nml Extremities: positive: Non-tender, Nml appearance Neurologic/Psychiatric: positive: Oriented x3 - Lab Results Fish Bones: 04/04/22 05:40 04/04/22 05:40 Other Labs: Lab Results x24hrs 04/04/22 04/04/22 Range/Units 05:40 05:40 WBC 5.9 (4.8-10.8) x10^3/uL RBC 3.09 L (4.70-6.10) 10^6/uL Hgb 10.0 L (14.0-18.0) g/dL Hct 31.7 L (42.0-52.0) % MCV 102.6 H (80.0-94.0) fL MCH 32.4 H (27.0-31.0) pg MCHC 31.5 L (32.0-36.0) g/dL RDW 22.8 H (12.0-15.0) % Plt Count 68 L (130-450) 10^3/uL MPV 9.7 (7.4-11.4) fL Neut # (Auto) Not Reportable Lymph # (Auto) Not Reportable [place] # (Auto) Not Reportable Eos # (Auto) Not Reportable Baso # (Auto) Not Reportable Absolute Nucleated RBC Not Reportable Total Counted 100 Band Neuts % (Manual) 3 (0 - 10) % Abnorm Lymph % (Manual) 0 % Nucleated RBC % Not Reportable Neutrophils # (Manual) 4.4 (1.5-6.6) 10^3/uL Lymphocytes # (Manual) 0.8 L (1.5-3.5) 10^3/uL Monocytes # (Manual) 0.6 (0.0-1.0) 10^3/uL Eosinophils # (Manual) 0.0 (0-0.7) 10^3/uL Basophils # (Manual) 0.0 (0-0.1) 10^3/uL Differential Comment MANUAL DIFFERENTIAL WBC Morphology NORMAL APPEARANCE (NORMAL) Platelet Estimate DECREASED (<130,000) (NORMAL) Platelet Morphology NORMAL APPEARANCE (NORMAL) RBC Morph Micro Appear 2+ ANISOCYTOSIS (NORMAL) Sodium 140 (135-145) mmol/L Potassium 3.9 (3.5-5.0) mmol/L Chloride 108 (101-111) mmol/L Carbon Dioxide 21 (21-32) mmol/L Anion Gap 11.0 (6-13) BUN 23 H (6-20) mg/dL Creatinine 1.7 H (0.6-1.2) mg/dL Estimated GFR (MDRD) 40 L (>89) Glucose 101 H (70-100) mg/dL Calcium 8.6 (8.5-10.3) mg/dL Assessment/Plan - Problem List (1) Hemorrhagic cystitis Impression: gross hematuria when martin placed yesterday s/p 2 units. H&H stable. continue current tx. CBI stopped today but blood clots found again in urine, continue current treatment. Plan: CBI for 2 days, supportive care to include pain medication, electrolyte replacement, IV fluid, check CBC and BMP every morning, abx- levaquin po (2) Diastolic heart failure Impression: diastolic dysfunction noted on 12/10/2021 ECHO see summary above Plan: Monitor I&O, assess for retained fluid legs, lung sounds, may need to diuretics Qualifiers: Heart failure chronicity: chronic Qualified Code(s): I50.32 - Chronic diastolic (congestive) heart failure (3) Afib Impression: Afib, Aflutter, on apixaban at home, EKG in ED shows SR with condition abnormality possible old inferior infarct. Plan: H&H stable, apixaban restarted, started on metoprolol today Qualifiers: Atrial fibrillation type: paroxysmal Qualified Code(s): I48.0 - Paroxysmal atrial fibrillation (4) History of DVT in adulthood Impression: history of RLE DVT. +1 pedal pulse today. Plan: no anticoagulation given his anemia, SCDs ordered (5) Acute kidney injury Impression: Elevated BUN 23 this am and rising [employer] Furniture [employer] 1.7 this am. CBI running, no documented urine output today, nursing reports poor po intake. Plan: Give 1L fluid IV this am. (6) Chronic kidney disease Impression: Estimated GFR 60 this admission Plan: no treatment Qualifiers: Chronic kidney disease stage: stage 3 (moderate) (7) Anemia Impression: Resolved: Gross hematuria, H&H 6.3/19.8 on admit, transfused PRBCs x2 in ED. Today H&H 01/10.7 Plan: resolved, no treatment Qualifiers: Anemia type: other cause (8) Hypokalemia Impression: Resolved: K 3.2 on admit, anemia due to hemorrhage, multiple transfusions. Today K+ husam ins normal. Plan: no treatment
[2022-04-04] MEDS: cefTRIAXone 1 GM in SODIUM CHLORIDE 0.9% MINIBAG 100 ML IV SCH (08:09)
[2022-04-04] MEDS ORDERED: SODIUM CHLORIDE 0.9% 1,000 ML IV SCH (09:00)
[2022-04-04] MEDS: METOPROLOL SUCCINATE 50 MG TABLET PO SCH (09:16)
[2022-04-04] MEDS: APIXABAN 2.5 MG TABLET PO SCH ×2 (09:16→20:31)
[2022-04-04] MEDS: OFLOXACIN 0.3% OPHTH DROPS LEFTEYE SCH (09:19)
[2022-04-04] MEDS: prednisoLONE 1% OPHTH DROPS 75 DROPS/5 ML BOTTLE LEFTEYE SCH (09:19)
[2022-04-04] MEDS: AMIODARONE 200 MG TABLET PO SCH (09:24)
[2022-04-04] MEDS: ONDANSETRON 4 MG/2 ML VIAL IVP PRN ×2 (10:05→16:22)
[2022-04-04] MEDS: CALCIUM CARB (OYSTER SHELL) 500 MG TABLET PO SCH (11:11)
[2022-04-04] MEDS: TAMSULOSIN 0.4 MG CAPSULE PO SCH (11:14)
[2022-04-04] MEDS: predniSONE 20 MG TABLET PO SCH (11:15)
[2022-04-04] MEDS: levoFLOXacin 250 MG TABLET PO SCH (11:21)
[2022-04-04] MEDS: CHOLECALCIFEROL 25 MCG TABLET PO SCH (18:22)
[2022-04-04] MEDS: MULTIVITAMIN W/MINERALS TABLET PO SCH (18:22)
[2022-04-04] MEDS: PANTOPRAZOLE 40 MG TABLET PO SCH (18:25)
[2022-04-04] MEDS: CALCIUM CARBONATE CHEW 500 MG TABLET PO PRN (18:26)
[2022-04-04] MEDS: ATORVASTATIN 10 MG TABLET PO SCH (20:31)
[2022-04-05] MEDS: ACETAMINOPHEN 325 MG TABLET PO PRN ×2 (02:19→06:55)
[2022-04-05] MEDS: CALCIUM CARBONATE CHEW 500 MG TABLET PO PRN (02:19)
[2022-04-05] MEDS: SODIUM CHLORIDE FLUSH 0.9% 10 ML SYRINGE IVP SCH ×3 (02:20→17:20)
[2022-04-05] MEDS: ONDANSETRON 4 MG/2 ML VIAL IVP PRN (02:20)
[2022-04-05 05:07] LABS: BASOPHILS % (AUTO) 0.7 %; EOSINOPHILS % (AUTO) 0.1 %; HGB - HEMOGLOBIN 8.5 g/dL (14.0-18.0); LYMPHOCYTES % (AUTO) 6.4 %; MEAN CORPUSCULAR HEMOGLOBIN 32.7 pg (27.0-31.0); MEAN CORPUSCULAR HGB CONC 32.7 g/dL (32.0-36.0); MEAN PLATELET VOLUME 9.2 fL (7.4-11.4); NEUTROPHILS % (AUTO) 85.4 %; PLT - PLATELET COUNT 53 10^3/uL (130-450); RED CELL DISTRIBUTION WIDTH 21.8 % (12.0-15.0)
[2022-04-05 05:10] LABS: ABNORMAL LYMPHS % (MANUAL) 0 %
[2022-04-05 05:15] LABS: CALCIUM 7.9 mg/dL (8.5-10.3); CREATININE 1.5 mg/dL (0.6-1.2); POTASSIUM 3.7 mmol/L (3.5-5.0)
[2022-04-05 05:24] LABS: BAND NEUTROPHILS % (MANUAL) 8 %; LYMPHOCYTES # (MANUAL) 0.5 10^3/uL (1.5-3.5); LYMPHOCYTES % (MANUAL) 7 %; MONOCYTES # (MANUAL) 0.4 10^3/uL (0.0-1.0); NEUTROPHILS # (MANUAL) 6.1 10^3/uL (1.5-6.6)
[2022-04-05 05:26] LABS: DIFFERENTIAL COMMENT MANUAL DIFFERENTIAL; PLATELET ESTIMATE, MANUAL DECREASED (<130,000) (NORMAL); PLATELET MORPHOLOGY NORMAL APPEARANCE (NORMAL); WBC MORPHOLOGY (MULTIPLE) NORMAL APPEARANCE (NORMAL)
[2022-04-05] MEDS: ZINC OXIDE 20% OINT 30 GM TUBE TOP PRN (06:00)
[2022-04-05] MEDS: PANTOPRAZOLE 40 MG TABLET PO SCH (06:55)
[2022-04-05] MEDS: CALCIUM CARB (OYSTER SHELL) 500 MG TABLET PO SCH (10:25)
[2022-04-05] MEDS: predniSONE 20 MG TABLET PO SCH (10:25)
[2022-04-05] MEDS: APIXABAN 2.5 MG TABLET PO SCH ×2 (10:26→21:08)
[2022-04-05] MEDS: METOPROLOL SUCCINATE 50 MG TABLET PO SCH (10:26)
[2022-04-05] MEDS: levoFLOXacin 250 MG TABLET PO SCH (10:26)
[2022-04-05] MEDS: MULTIVITAMIN W/MINERALS TABLET PO SCH (10:26)
[2022-04-05] MEDS: CHOLECALCIFEROL 25 MCG TABLET PO SCH (10:27)
[2022-04-05] MEDS: AMIODARONE 200 MG TABLET PO SCH (10:28)
[2022-04-05] MEDS: TAMSULOSIN 0.4 MG CAPSULE PO SCH (10:28)
[2022-04-05] MEDS: HYDROmorphone 1 MG/ML CARPUJECT IVP PRN ×2 (10:28→19:19)
[2022-04-05] MEDS: prednisoLONE 1% OPHTH DROPS 75 DROPS/5 ML BOTTLE LEFTEYE SCH (10:29)
[2022-04-05] MEDS: OFLOXACIN 0.3% OPHTH DROPS LEFTEYE SCH (10:29)
[2022-04-05] MEDS: FLUTICASONE NASAL SPRAY NAS SCH (12:38)
[2022-04-05] MEDS: oxyCODONE 5 MG TABLET PO PRN ×2 (14:08→21:08)
[2022-04-05] MEDS: SODIUM CHLORIDE FLUSH 0.9% 10 ML SYRINGE IVP PRN (14:09)
--- NOTE | 2022-04-05 16:20 | PROVIDER PROGRESS NOTE ---
Assessment/Plan - Problem List (1) C. difficile diarrhea Assessment/Plan: The patient tells me today that he has had diarrhea since being here. Then he remembered he also had it before being admitted. He also thought that his lower abdominal and pelvic pain was related to the Martin but the abdominal pain persists even after the Martin was removed at noon today. The patient has been on empiric antibiotics here for his hemorrhagic cystitis A sample of stool was sent this morning for C. difficile and came back positive He had abdomen/pelvis CT done at admission and this did show distal colon wall thickening consistent with colitis Plan: Will stop the quinolone Will begin oral vancomycin. We will change his diet from a regular diet to an easily digested, low fiber diet while he has diarrhea Start contact isolation Will try to balance out his I's and O's by starting IV fluids [place] electrolytes and Mg daily (2) Hypotension Qualifiers: Hypotension type: unspecified hypotension type Qualified Code(s): I95.9 - Hypotension, unspecified Assessment/Plan: Patient is running systolic blood pressures of 80-90 Causes are likely multifactorail and likely from his chronic anemia, and from Addisonian crisis since he is normally on prednisone every day and has had no stress dose steroids here, or could be volume depletion from fluid losses due to his diarrhea Plan: We will start IV fluids as described in #1 Will stop his oral prednisone and give stress dose steroids (hydrocortisone 100 mg TID for 2-3 days) Will place hold parameters on meds that drop his blood pressure Will place on telemetry (3) Hemorrhagic cystitis Assessment/Plan: He had gross hematuria when martin placed. He has been getting CBI since admission, as recommended by Urol. Martin was removed today and CBI was stopped today, since he has had no hematuria for 24 hours Plan: Continue pain medication prn Follow CBC and BMP daily, He was on empiric abx- Ceftriaxone iv was changed to levaquin po, even with no urine ccx indicated to follow if urine grew anything. As per Urology recommendations at time of admission, after the Martin is out, if he can urinate on his own without hematuria, and with a low post-void residual, he will then be ready for discharge. Continue Flomax (4) Anemia Impression: Resolved: He had gross hematuria, H&H 6.3/19.8 on admit, transfused PRBCs x2 in ED. Yest Hgb 10>> 8.5 today Plan: Follow hemoglobin daily, especially since anticoagulant was restarted, watch for rebleeding Qualifiers: Anemia type: other cause (5) Thrombocytopenia He has chronic pancytopenia often because of being on heme-onc management Plan: Would transfuse plts if plt count under 10 or if under 50 with any active bleeding (6) Chronic diastolic heart failure Impression: Diastolic dysfunction noted on 12/10/2021 ECHO Plan: Monitor I&O, assess for retained fluid legs, lung sounds, Qualifiers: Heart failure chronicity: chronic Qualified Code(s): I50.32 - Chronic diastolic (congestive) heart failure (7) Afib Impression: He is on significant doses of HR-slowing meds: metoprolol 100 mg daily and amiodarone 200 mg daily. Today HR is 90-100. He was on apixaban at home and it has been resumed. EKG in ED showed sinus rhythm. He has not been on telemetry since admission. Plan: Since his Apixaban was restarted, watch for rebleeding Due to low BP, will place hold parameters on his Amio and Metoprolol Will place on telemetry Qualifiers: Atrial fibrillation type: paroxysmal Qualified Code(s): I48.0 - Paroxysmal atrial fibrillation (8) History of DVT Impression: He has history of RLE DVT. Plan: Apixaban was restarted (9) Chronic kidney disease Impression: Plan: Avoid nephrotoxins Follow BMP daily Qualifiers: Chronic kidney disease stage: stage 3 (moderate) (10) Severe protein calorie malnutrition This patient is significant muscle wasting and loss of subcu fat, nutritional intake of less than 50% of recommended for 2 weeks or more (his weight is down 16 kg since December 2021 which is a 20% weight reduction in 4 months) (11) Hypokalemia Impression: Resolved with replacement - Current Meds Current Meds: Current Medications Generic Name Dose Route Start Last Admin Trade Name Freq PRN Reason Stop Dose Admin Acetaminophen 650 mg 04/02/22 16:39 04/05/22 06:55 Acetaminophen 325 Mg Tablet PO 650 mg Q4HR PRN Administration Pain 1 to 4, or Fever Amiodarone HCl 200 mg 04/04/22 09:00 04/05/22 10:28 Amiodarone 200 Mg Tablet PO 200 mg DAILY JUJU Administration Apixaban 2.5 mg 04/04/22 09:00 04/05/22 10:26 Apixaban 2.5 Mg Tablet PO 2.5 mg BID JUJU Administration Atorvastatin Calcium 10 mg 04/04/22 21:00 04/04/22 20:31 Atorvastatin 10 Mg Tablet PO 10 mg 2100 JUJU Administration Calcium Carbonate/Glycine 500 mg 04/04/22 09:00 04/05/22 10:25 Calcium Carb (Oyster Shell) 500 Mg Tablet PO 500 mg 0900 JUJU Administration Calcium Carbonate/Glycine 500 mg 04/04/22 18:17 04/05/22 02:19 Calcium Carbonate Chew 500 Mg Tablet PO 500 mg TID PRN Administration INDIGESTION Cholecalciferol 50 mcg 04/04/22 17:00 04/05/22 10:27 Cholecalciferol 25 Mcg Tablet PO 50 mcg DAILY JUJU Administration Fluticasone Propionate 1 sprays 04/05/22 09:00 04/05/22 12:38 Fluticasone Nasal Soper SHENA 1 spr DAILY JUJU Administration Heparin Sodium (Beef Lung) 30 - 50 unit 04/03/22 16:08 04/04/22 08:25 Heparin Flush 50 Units/5 Ml Syringe IVP 50 unit PRN PRN Administration Port Protocol (<24 hours) Hydromorphone HCl 1 mg 04/05/22 08:26 04/05/22 10:28 Hydromorphone 1 Mg/Ml Carpuject IVP 1 mg Q4HR PRN Administration PAIN Levofloxacin 750 mg 04/04/22 11:00 04/05/22 10:26 Levofloxacin 250 Mg Tablet PO 750 mg DAILY JUJU Administration Metoprolol Succinate 100 mg 04/04/22 09:00 04/05/22 10:26 Metoprolol Succinate 50 Mg Tablet PO 100 mg DAILY JUJU Administration Multi-Ingredient Ointment 1 applic 04/04/22 10:11 04/05/22 06:00 Zinc Oxide 20% Oint 30 Gm Tube TOP 1 applic PRN PRN Administration Skin Care Multivitamins/Minerals 1 tab 04/04/22 17:00 04/05/22 10:26 Multivitamin W/Minerals Tablet PO 1 tab DAILYWM JUJU Administration Ofloxacin 1 drops 04/04/22 09:00 04/05/22 10:29 Ofloxacin 0.3% Ophth Drops LEFTEYE 1 drops DAILY JUJU Administration Ondansetron HCl 4 mg 04/02/22 16:39 04/05/22 02:20 Ondansetron 4 Mg/2 Ml Vial IVP 4 mg Q6HR PRN Administration Nausea / Vomiting Oxycodone HCl 5 mg 04/05/22 08:52 04/05/22 14:08 Oxycodone 5 Mg Tablet PO 5 mg Q6HR PRN Administration Pain 5 to 7 Pantoprazole Sodium 40 mg 04/04/22 19:00 04/05/22 06:55 Pantoprazole 40 Mg Tablet PO 40 mg QDAC JUJU Administration Prednisolone 1 drops 04/04/22 09:00 04/05/22 10:29 Prednisolone 1% Ophth Drops 75 Drops/5 Ml Bottle LEFTEYE 1 drops DAILY JUJU Administration Sodium Chloride 10 ml 04/02/22 16:39 04/05/22 14:09 Sodium Chloride Flush 0.9% 10 Ml Syringe IVP 10 ml PRN PRN Administration NEEDED PER PROVIDER ORDERS Sodium Chloride 10 ml 04/02/22 17:00 04/05/22 10:29 Sodium Chloride Flush 0.9% 10 Ml Syringe IVP 10 ml 0100,0900,1700 JUJU Administration Tamsulosin HCl 0.4 mg 04/04/22 09:00 04/05/22 10:28 Tamsulosin 0.4 Mg Capsule PO 0.4 mg DAILY JUJU Administration Witch Kasey/Glycerin 1 pad 04/03/22 15:28 04/03/22 20:58 Witch Kasey/Glycerin 1 Pad TOP 1 pad PRN PRN Administration ITCHING - Lab Result Fish Bone Diagrams: 04/05/22 15:46 04/05/22 05:00 - Additional Planning My Orders: My Active Orders 04/05/22 Evaluate and Treat OT [OT] Routine Evaluate and Treat PT [PT] Routine 04/05/22 08:26 HYDROmorphone 1MG CARP [Dilaudid 1Mg Carp] 1 mg IVP Q4HR PRN 04/05/22 08:52 oxyCODONE [Roxicodone] 5 mg PO Q6HR PRN 04/05/22 09:00 Fluticasone [Flonase] 1 sprays SHENA DAILY 04/05/22 22:00 Hydrocortisone Succinate [Solu-CORTEF] 100 mg IVP TID Subjective - Subjective Patient Reports: Feeling Better (since Martin removed at noon), Other (Feels weak when waking to toilet, not lightheaded. Still has LLQ pain, even after Martin was removed.) Objective Vital Signs: Vital Signs - 24 hr 04/04/22 04/05/22 04/05/22 16:19 00:00 02:29 Temperature 36.9 C Heart Rate [ Activity] Heart Rate [ 95 99 Brachial] Respiratory 18 Rate Blood Pressure [Activity] Blood Pressure 98/53 L [Left Brachial artery] Blood Pressure 86/47 L 82/44 L [Right Brachial artery] Blood Pressure [Sitting] O2 Saturation 96 O2 Saturation [ Activity] 04/05/22 04/05/22 04/05/22 05:25 06:57 07:46 Temperature 36.5 C Heart Rate [ Activity] Heart Rate [ 96 101 H 92 Brachial] Respiratory 18 Rate Blood Pressure [Activity] Blood Pressure [Left Brachial artery] Blood Pressure 90/47 L 87/47 L 85/46 L [Right Brachial artery] Blood Pressure [Sitting] O2 Saturation 95 O2 Saturation [ Activity] 04/05/22 04/05/22 04/05/22 07:50 10:10 15:55 Temperature 36.3 C L Heart Rate [ 97 Activity] Heart Rate [ 96 101 H Brachial] Respiratory 15 Rate Blood Pressure 91/49 L [Activity] Blood Pressure [Left Brachial artery] Blood Pressure 82/42 L 92/53 L [Right Brachial artery] Blood Pressure 91/49 L [Sitting] O2 Saturation 97 O2 Saturation [ 97 Activity] Oxygen O2 Source Room air I&O (Last 24 Hrs): Intake and Output Totals x24h 04/03/22 04/04/22 04/05/22 23:59 23:59 23:59 Intake Total 05800.000 7490 680 Output Total 19548 5575 1000 Balance -2350.000 1915 -320 General: Alert, Oriented x3, Other (Cachectic and appears tired) HEENT: Mucous membr. moist/pink Neck: Supple Neuro: Alert, Non Focal Cardiovascular: No murmurs Respiratory: No respiratory distress Abdomen: Soft, Other (Tender in LLQ, no gurading or rebound) Extremities: No edema, No tenderness/swelling Skin: No rashes - Results Results: Laboratory Results WBC 7.0 x10^3/uL (4.8-10.8) 04/05/22 05:00 RBC 2.60 10^6/uL (4.70-6.10) L 04/05/22 05:00 Hgb 8.7 g/dL (14.0-18.0) L 04/05/22 15:46 Hct 26.0 % (42.0-52.0) L 04/05/22 05:00 MCV 100.0 fL (80.0-94.0) H 04/05/22 05:00 MCH 32.7 pg (27.0-31.0) H 04/05/22 05:00 MCHC 32.7 g/dL (32.0-36.0) 04/05/22 05:00 RDW 21.8 % (12.0-15.0) H 04/05/22 05:00 Plt Count 47 10^3/uL (130-450) L 04/05/22 15:46 MPV 9.2 fL (7.4-11.4) 04/05/22 05:00 Neut # (Auto) Not Reportable 04/05/22 05:00 Lymph # (Auto) Not Reportable 04/05/22 05:00 [place] # (Auto) Not Reportable 04/05/22 05:00 Eos # (Auto) Not Reportable 04/05/22 05:00 Baso # (Auto) Not Reportable 04/05/22 05:00 Absolute Nucleated RBC Not Reportable 04/05/22 05:00 Total Counted 100 04/05/22 05:00 Band Neuts % (Manual) 8 % (0-10) 04/05/22 05:00 Abnorm Lymph % (Manual) 0 % 04/05/22 05:00 Nucleated RBC % Not Reportable 04/05/22 05:00 Neutrophils # (Manual) 6.1 10^3/uL (1.5-6.6) 04/05/22 05:00 Lymphocytes # (Manual) 0.5 10^3/uL (1.5-3.5) L 04/05/22 05:00 Monocytes # (Manual) 0.4 10^3/uL (0.0-1.0) 04/05/22 05:00 Eosinophils # (Manual) 0.0 10^3/uL (0-0.7) 04/05/22 05:00 Basophils # (Manual) 0.0 10^3/uL (0-0.1) 04/05/22 05:00 Differential Comment MANUAL DIFFERENTIAL 04/05/22 05:00 Manual Slide Review Indicated 04/03/22 05:12 WBC Morphology NORMAL APPEARANCE (NORMAL) 04/05/22 05:00 Platelet Estimate DECREASED (<130,000) (NORMAL) 04/05/22 05:00 Platelet Morphology NORMAL APPEARANCE (NORMAL) 04/05/22 05:00 RBC Morph Micro Appear 2+ ANISOCYTOSIS (NORMAL) 1+ MACROCYTOSIS (NORMAL) 04/05/22 05:00 RBC Morph Micro Appear 2+ ANISOCYTOSIS (NORMAL) 1+ MACROCYTOSIS (NORMAL) 04/05/22 05:00 PT 12.8 secs (9.9-12.6) H 04/02/22 05:49 INR 1.2 (0.8-1.2) 04/02/22 05:49 Sodium 140 mmol/L (135-145) 04/05/22 05:00 Potassium 3.7 mmol/L (3.5-5.0) 04/05/22 05:00 Chloride 106 mmol/L (101-111) 04/05/22 05:00 Carbon Dioxide 23 mmol/L (21-32) 04/05/22 05:00 Anion Gap 11.0 (6-13) 04/05/22 05:00 BUN 38 mg/dL (6-20) H 04/05/22 05:00 Creatinine 1.5 mg/dL (0.6-1.2) H 04/05/22 05:00 Estimated GFR (MDRD) 46 (>89) L 04/05/22 05:00 Glucose 141 mg/dL (70-100) H 04/05/22 05:00 Calcium 7.9 mg/dL (8.5-10.3) L 04/05/22 05:00 Total Bilirubin 0.6 mg/dL (0.2-1.0) 04/02/22 05:49 AST 19 IU/L (10-42) 04/02/22 05:49 ALT 21 IU/L (10-60) 04/02/22 05:49 Alkaline Phosphatase 63 IU/L (42-121) 04/02/22 05:49 Total Protein 5.3 g/dL (6.7-8.2) L 04/02/22 05:49 Albumin 2.7 g/dL (3.2-5.5) L 04/02/22 05:49 Globulin 2.6 g/dL (2.1-4.2) 04/02/22 05:49 Albumin/Globulin Ratio 1.0 (1.0-2.2) 04/02/22 05:49 Lipase 21 U/L (22-51) L 04/02/22 05:49 Urine Color RED/BLOODY 04/02/22 11:40 Urine Clarity TURBID (CLEAR) 04/02/22 11:40 Urine pH 6.0 PH (5.0-7.5) 04/02/22 11:40 Ur Specific [place] 1.025 (1.002-1.030) 04/02/22 11:40 Urine Protein >=300 mg/dL (NEGATIVE) H 04/02/22 11:40 Urine Glucose (UA) NEGATIVE mg/dL (NEGATIVE) 04/02/22 11:40 Urine Ketones NEGATIVE mg/dL (NEGATIVE) 04/02/22 11:40 Urine Occult Blood LARGE (NEGATIVE) H 04/02/22 11:40 Urine Nitrite NEGATIVE (NEGATIVE) 04/02/22 11:40 Urine Bilirubin NEGATIVE (NEGATIVE) 04/02/22 11:40 Urine Urobilinogen 0.2 (NORMAL) E.U./dL (NORMAL) 04/02/22 11:40 Ur Leukocyte Esterase NEGATIVE (NEGATIVE) 04/02/22 11:40 Urine RBC TNTC /HPF (0-5) H 04/02/22 11:40 Urine WBC 6-10 /HPF (0-3) H 04/02/22 11:40 Ur Squamous Epith Cells NONE SEEN (<= Few) 04/02/22 11:40 Urine Bacteria None Seen /HPF (None Seen) 04/02/22 11:40 Urine Yeast PRESENT 04/02/22 11:40 Ur Microscopic Review INDICATED 04/02/22 11:40 Urine Culture Comments NOT INDICATED 04/02/22 11:40 Stl C. diff Tox B Gene POSITIVE (NEGATIVE) A* 04/05/22 13:50 SARS-CoV-2 (PCR) NOT DETECTED 04/02/22 14:53 Blood Type O POSITIVE 04/02/22 05:49 Antibody Screen NEGATIVE 04/02/22 05:49 Crossmatch IS Only See Detail 04/02/22 05:49 - Procedures Procedures: Procedures TRANSFUSE NONAUT PLATELETS IN PERIPH VEIN, PERC (06/24/21)
[2022-04-05] MEDS ORDERED: AMIODARONE 200 MG TABLET PO SCH (16:45)
[2022-04-05] MEDS ORDERED: METOPROLOL SUCCINATE 50 MG TABLET PO SCH (16:46)
[2022-04-05] MEDS: VANCOMYCIN 125 MG CAPSULE PO SCH ×2 (17:20→21:08)
[2022-04-05] MEDS: SODIUM CHLORIDE 0.9% 1,000 ML IV SCH (17:20)
[2022-04-05] MEDS: HYDROCORTISONE SUCCINATE 100 MG/2 ML VIAL IVP SCH (21:08)
[2022-04-05] MEDS: ATORVASTATIN 10 MG TABLET PO SCH (21:08)
[2022-04-06] MEDS: SODIUM CHLORIDE FLUSH 0.9% 10 ML SYRINGE IVP SCH ×3 (00:50→17:46)
[2022-04-06] MEDS: ACETAMINOPHEN 325 MG TABLET PO PRN ×2 (01:09→06:39)
[2022-04-06] MEDS: SODIUM CHLORIDE 0.9% 1,000 ML IV SCH ×3 (03:07→22:15)
[2022-04-06] MEDS: oxyCODONE 5 MG TABLET PO PRN ×2 (03:07→08:58)
[2022-04-06] MEDS: PANTOPRAZOLE 40 MG TABLET PO SCH (05:10)
[2022-04-06] MEDS: HYDROCORTISONE SUCCINATE 100 MG/2 ML VIAL IVP SCH ×3 (05:10→22:01)
[2022-04-06 05:25] LABS: HCT - HEMATOCRIT 23.5 % (42.0-52.0); HGB - HEMOGLOBIN 7.6 g/dL (14.0-18.0); LYMPHOCYTES % (AUTO) 7.1 %; MEAN CORPUSCULAR HEMOGLOBIN 32.5 pg (27.0-31.0); MEAN CORPUSCULAR HGB CONC 32.3 g/dL (32.0-36.0); MEAN CORPUSCULAR VOLUME 100.4 fL (80.0-94.0); MEAN PLATELET VOLUME 9.3 fL (7.4-11.4); MONOCYTES % (AUTO) 5.1 %; NEUTROPHILS % (AUTO) 86.1 %; PLT - PLATELET COUNT 39 10^3/uL (130-450); RED BLOOD COUNT 2.34 10^6/uL (4.70-6.10); RED CELL DISTRIBUTION WIDTH 21.4 % (12.0-15.0); WHITE BLOOD COUNT 5.9 x10^3/uL (4.8-10.8)
[2022-04-06 05:28] LABS: ABNORMAL LYMPHS % (MANUAL) 0 %
[2022-04-06 05:35] LABS: CALCIUM 7.8 mg/dL (8.5-10.3); CREATININE 1.5 mg/dL (0.6-1.2); MAGNESIUM 1.9 mg/dL (1.7-2.8); POTASSIUM 3.8 mmol/L (3.5-5.0)
[2022-04-06 05:43] LABS: BAND NEUTROPHILS % (MANUAL) 5 %; LYMPHOCYTES # (MANUAL) 0.7 10^3/uL (1.5-3.5); LYMPHOCYTES % (MANUAL) 12 %; METAMYELOCYTES % (MANUAL) 2 %; MONOCYTES # (MANUAL) 0.2 10^3/uL (0.0-1.0); NEUTROPHILS # (MANUAL) 4.9 10^3/uL (1.5-6.6)
[2022-04-06 05:44] LABS: PLATELET ESTIMATE, MANUAL DECREASED (<130,000) (NORMAL); PLATELET MORPHOLOGY NORMAL APPEARANCE (NORMAL); WBC MORPHOLOGY (MULTIPLE) NORMAL APPEARANCE (NORMAL)
[2022-04-06 05:45] LABS: DIFFERENTIAL COMMENT MANUAL DIFFERENTIAL
[2022-04-06] MEDS ORDERED: SODIUM CHLORIDE 0.9% 500 ML IV ONE ×2 (06:20→09:14)
[2022-04-06] MEDS: VANCOMYCIN 125 MG CAPSULE PO SCH ×4 (08:14→22:01)
[2022-04-06] MEDS: TAMSULOSIN 0.4 MG CAPSULE PO SCH (08:15)
[2022-04-06] MEDS: CALCIUM CARB (OYSTER SHELL) 500 MG TABLET PO SCH (08:15)
[2022-04-06] MEDS: CHOLECALCIFEROL 25 MCG TABLET PO SCH (08:15)
[2022-04-06] MEDS: MULTIVITAMIN W/MINERALS TABLET PO SCH (08:15)
[2022-04-06] MEDS: FLUTICASONE NASAL SPRAY NAS SCH (08:16)
[2022-04-06] MEDS: OFLOXACIN 0.3% OPHTH DROPS LEFTEYE SCH (08:16)
[2022-04-06] MEDS: prednisoLONE 1% OPHTH DROPS 75 DROPS/5 ML BOTTLE LEFTEYE SCH (08:16)
[2022-04-06] MEDS: SODIUM CHLORIDE FLUSH 0.9% 10 ML SYRINGE IVP PRN ×2 (08:26→14:20)
[2022-04-06] MEDS ORDERED: AMIODARONE 200 MG TABLET PO SCH (09:13)
[2022-04-06] MEDS: HYDROmorphone 1 MG/ML CARPUJECT IVP PRN ×2 (14:51→19:18)
--- NOTE | 2022-04-06 16:30 | PROVIDER PROGRESS NOTE ---
Assessment/Plan - Problem List (1) C. difficile diarrhea Assessment/Plan: The patient revealed to me yesterday that he has had diarrhea since being here. Then he remembered he also had it before being admitted. He also thought that his lower abdominal and pelvic pain was related to the Martin but the abdominal pain persists even after the Martin was removed yesterday. The patient had been on empiric antibiotics here for his hemorrhagic cystitis A sample of stool was sent yesterday for C. difficile and came back positive. He had abdomen/pelvis CT done at admission and this did show distal colon wall t hickening consistent with colitis. He was started on oral Vanco yesteray and the empiric Levaquin was stopped. Today the LLQ pain has improved, he said. Plan: Cont oral vancomycin. Cont easier digested, low fiber diet while he has diarrhea Cont contact isolation We started iv fluids yesyetday and will try to balance his I's and O's Follow electrolytes and Mg daily (2) Hypotension Qualifiers: Hypotension type: unspecified hypotension type Qualified Code(s): I95.9 - Hypotension, unspecified Assessment/Plan: Patient is running systolic blood pressures of 80-90 yesterday and today. Causes are likely multifactorail and likely from his chronic anemia, and from Addisonian crisis since he is normally on prednisone every day and has had no stress dose steroids here, or could be volume depletion from fluid losses due to his diarrhea We started IV fluids as described in #1 and he got 500 cc saline boluses x2 today We stopped his oral prednisone and I ordered stress dose steroids yesterday (hydrocortisone 100 mg TID for 2-3 days) We placed hold parameters on meds that drop his blood pressure Plan: Continue these med changes Telemetry was ordered (3) Hemorrhagic cystitis Assessment/Plan: He had gross hematuria when martin placed. He got CBI for several days, as recommended by Urol. Martin was removed yesterday and CBI was stopped, since he has had no hematuria for 24 hours. We stopped his empiric Levaquin since urine culture grew not Today there is blood tinged urine again but he also has a very low platelet count of 39. When the hematuria was again seen, the telemedicine doctor was contacted and has stopped his Eliquis Plan: Continue pain medication prn Follow CBC and BMP daily, transfuse plts if count <50 with bleeding noted Continue Flomax Remain off Eliquis, indefinitely (4) Anemia Impression: Resolved: He had gross hematuria, H&H 6.3/19.8 on admit, transfused PRBCs x2 in ED. Hgb then 10>> 8.5>> 7.6 today Plan: Follow hemoglobin twice daily, especially with rebleeding seen in the urine Remain off Eliquis Transfuse if hemoglobin drops below 7, or below 8 and hypotensive Qualifiers: Anemia type: other cause (5) Thrombocytopenia He has chronic pancytopenia often because of being on heme-onc management. Today plts have dropped to 39. Plan: Will transfuse 1 U plts today, since his plt count is under 50 and he is again having blood tinged urine (6) Sacral decubitus ulcer The patient started developing a wound on the sacrum unknown period of time ago. It was brought to my attention today and photos have been entered into his chart. On exam it appears to be stage IV. It is likely unable to heal because of his longstanding diarrhea Plan: I have asked for a MAC Wound consult however have learned that no inpatient consults are done by the new provider Gen. Surgery consult has been requested since I believe debridement is needed. I spoke to Dr. Galicia today. I did discuss his low plt count. (7) Chronic diastolic heart failure Impression: Diastolic dysfunction noted on 12/10/2021 Echo. He is stable and not clinically fluid overloaded Plan: Monitor I&O, assess for retained fluid legs, lung sounds, Qualifiers: Heart failure chronicity: chronic Qualified Code(s): I50.32 - Chronic diastolic (congestive) heart failure (8) Afib Impression: He was on significant doses of HR-slowing meds: metoprolol 100 mg daily and amiodarone 200 mg daily. He was on apixaban at home and it has been resumed several days ago. EKG in ED showed sinus rhythm. He had not been on telemetry since admission. When the hematuria was again seen this morning, the telemedicine doctor was contacted and has stopped his Eliquis Plan: Continue these orders Remain off Eliquis Qualifiers: Atrial fibrillation type: paroxysmal Qualified Code(s): I48.0 - Paroxysmal atrial fibrillation (9) History of DVT Impression: He has history of RLE DVT. Plan: Apixaban has been stopped (again) Will order SCDs (10) Chronic kidney disease Impression: His creatinine runs 1.2-1.7. Plan: Avoid nephrotoxins Follow BMP daily Qualifiers: Chronic kidney disease stage: stage 3 (moderate) (11) Severe protein calorie malnutrition This patient is significant muscle wasting and loss of subcu fat, nutritional intake of less than 50% of recommended for 2 weeks or more (his weight is down 16 kg since December 2021 which is a 20% weight reduction in 4 months) (12) Hypokalemia Impression: Resolved with replacement - Current Meds Current Meds: Current Medications Generic Name Dose Route Start Last Admin Trade Name Freq PRN Reason Stop Dose Admin Acetaminophen 650 mg 04/02/22 16:39 04/06/22 06:39 Acetaminophen 325 Mg Tablet PO 650 mg Q4HR PRN Administration Pain 1 to 4, or Fever Atorvastatin Calcium 10 mg 04/04/22 21:00 04/05/22 21:08 Atorvastatin 10 Mg Tablet PO 10 mg 2100 JUJU Administration Calcium Carbonate/Glycine 500 mg 04/04/22 09:00 04/06/22 08:15 Calcium Carb (Oyster Shell) 500 Mg Tablet PO 500 mg 0900 JUJU Administration Calcium Carbonate/Glycine 500 mg 04/04/22 18:17 04/05/22 02:19 Calcium Carbonate Chew 500 Mg Tablet PO 500 mg TID PRN Administration INDIGESTION Cholecalciferol 50 mcg 04/04/22 17:00 04/06/22 08:15 Cholecalciferol 25 Mcg Tablet PO 50 mcg DAILY JUJU Administration Fluticasone Propionate 1 sprays 04/05/22 09:00 04/06/22 08:16 Fluticasone Nasal [place] SHENA 1 spr DAILY JUJU Administration Heparin Sodium (Beef Lung) 30 - 50 unit 04/03/22 16:08 04/04/22 08:25 Heparin Flush 50 Units/5 Ml Syringe IVP 50 unit PRN PRN Administration Port Protocol (<24 hours) Hydrocortisone Sodium Succinate 100 mg 04/05/22 22:00 04/06/22 14:22 Hydrocortisone Succinate 100 Mg/2 Ml Vial IVP 100 mg TID JUJU Administration Hydromorphone HCl 1 mg 04/05/22 08:26 04/06/22 14:51 Hydromorphone 1 Mg/Ml Carpuject IVP 1 mg Q4HR PRN Administration PAIN Sodium Chloride 1,000 mls @ 150 mls/hr 04/06/22 13:55 04/06/22 14:33 Normal Saline 0.9% IV 150 mls/hr .Q6H40M JUJU Administration Multi-Ingredient Ointment 1 applic 04/04/22 10:11 04/05/22 06:00 Zinc Oxide 20% Oint 30 Gm Tube TOP 1 applic PRN PRN Administration Skin Care Multivitamins/Minerals 1 tab 04/04/22 17:00 04/06/22 08:15 Multivitamin W/Minerals Tablet PO 1 tab DAILYWM JUJU Administration Ofloxacin 1 drops 04/04/22 09:00 04/06/22 08:16 Ofloxacin 0.3% Ophth Drops LEFTEYE 1 drops DAILY JUJU Administration Ondansetron HCl 4 mg 04/02/22 16:39 04/05/22 02:20 Ondansetron 4 Mg/2 Ml Vial IVP 4 mg Q6HR PRN Administration Nausea / Vomiting Oxycodone HCl 5 mg 04/05/22 08:52 04/06/22 08:58 Oxycodone 5 Mg Tablet PO 5 mg Q6HR PRN Administration Pain 5 to 7 Pantoprazole Sodium 40 mg 04/04/22 19:00 04/06/22 05:10 Pantoprazole 40 Mg Tablet PO 40 mg QDAC JUJU Administration Prednisolone 1 drops 04/04/22 09:00 04/06/22 08:16 Prednisolone 1% Ophth Drops 75 Drops/5 Ml Bottle LEFTEYE 1 drops DAILY JUJU Administration Sodium Chloride 10 ml 04/02/22 16:39 04/06/22 14:20 Sodium Chloride Flush 0.9% 10 Ml Syringe IVP 10 ml PRN PRN Administration NEEDED PER PROVIDER ORDERS Sodium Chloride 10 ml 04/02/22 17:00 04/06/22 08:26 Sodium Chloride Flush 0.9% 10 Ml Syringe IVP 10 ml 0100,0900,1700 JUJU Administration Tamsulosin HCl 0.4 mg 04/04/22 09:00 04/06/22 08:15 Tamsulosin 0.4 Mg Capsule PO 0.4 mg DAILY JUJU Administration Vancomycin HCl 125 mg 04/05/22 17:00 04/06/22 14:19 Vancomycin 125 Mg Capsule PO 125 mg QID JUJU Administration [place]/Glycerin 1 pad 04/03/22 15:28 04/03/22 20:58 [place]/Glycerin 1 Pad TOP 1 pad PRN PRN Administration ITCHING - Lab Result Fish Bone Diagrams: 04/06/22 13:16 04/06/22 05:20 - Additional Planning My Orders: My Active Orders 04/05/22 Dinner DIET [Dysphagia - Minced and Moist] [DIET] 04/05/22 16:38 Telemetry- [RC] Q4HR 04/05/22 17:00 Vancomycin [Vancocin] 125 mg PO QID 04/05/22 22:00 Hydrocortisone Succinate [Solu-CORTEF] 100 mg IVP TID 04/06/22 Consult [General Surgery Consult] [CONS] Routine Wound Consult MAC [MAC] Routine 04/06/22 09:12 Transfuse Platelet Pheresis Pk [RC] .ONCE 04/06/22 09:13 Amiodarone [Pacerone] 200 mg PO DAILY 04/06/22 09:26 Cod Liver Oil/Zinc Oxide [Desitin] 113 gm TOP PRN PRN 04/06/22 09:31 BLOOD TYPE Stat PLATELETPHERESIS LEUKO REDUCED Stat 04/06/22 13:55 Sodium Chloride 0.9% [Normal Saline 0.9%] 1,000 ml IV 150 mls/hr 04/07/22 05:00 BMP - BASIC METABOLIC PANEL [CHEM] DAILYLAB MAGNESIUM [CHEM] DAILYLAB 04/08/22 05:00 BMP - BASIC METABOLIC PANEL [CHEM] DAILYLAB 04/09/22 05:00 BMP - BASIC METABOLIC PANEL [CHEM] DAILYLAB Subjective - Subjective Patient Reports: Feeling Better (LLQ pain is gone (even smiled today) but diarrhea continues) Objective Vital Signs: Vital Signs - 24 hr 04/05/22 04/05/22 04/06/22 21:00 23:23 05:00 Temperature 36.4 C L 36.3 C L 36.8 C Heart Rate [ 88 87 89 Brachial] Heart Rate [ Monitoring electrodes] Respiratory 16 18 16 Rate Blood Pressure [Left Brachial artery] Blood Pressure 87/41 L 84/49 L 83/51 L [Right Brachial artery] O2 Saturation 97 100 98 04/06/22 04/06/22 04/06/22 07:24 07:25 07:38 Temperature 36.2 C L Heart Rate [ 126 H 133 H 128 H Brachial] Heart Rate [ Monitoring electrodes] Respiratory 18 Rate Blood Pressure 83/53 L [Left Brachial artery] Blood Pressure 79/58 L 81/53 L [Right Brachial artery] O2 Saturation 100 04/06/22 04/06/22 04/06/22 08:59 11:05 15:44 Temperature 36.3 C L 36.2 C L Heart Rate [ 131 H 65 Brachial] Heart Rate [ 126 H 131 H Monitoring electrodes] Respiratory 18 16 Rate Blood Pressure 84/53 L [Left Brachial artery] Blood Pressure 91/62 92/51 L [Right Brachial artery] O2 Saturation 98 97 97 Oxygen O2 Source Room air I&O (Last 24 Hrs): Intake and Output Totals x24h 04/04/22 04/05/22 04/06/22 23:59 23:59 23:59 Intake Total 7490 1270 3192.900 Output Total 5575 1500 Balance 1915 -230 3192.900 General: Alert, Oriented x3 HEENT: Mucous membr. moist/pink, Other (Eye patch L eye in his glasses) Neck: Supple, No JVD Neuro: Alert, Non Focal Cardiovascular: Other (irreg) Respiratory: No respiratory distress Abdomen: Soft, No tenderness Genitourinary: Other (Large and very deep and very red sacral decubitus ulcer per) Extremities: No edema - Results Results: Laboratory Results WBC 5.9 x10^3/uL (4.8-10.8) 04/06/22 05:20 RBC 2.34 10^6/uL (4.70-6.10) L 04/06/22 05:20 Hgb 7.5 g/dL (14.0-18.0) L 04/06/22 13:16 Hct 23.5 % (42.0-52.0) L 04/06/22 05:20 MCV 100.4 fL (80.0-94.0) H 04/06/22 05:20 MCH 32.5 pg (27.0-31.0) H 04/06/22 05:20 MCHC 32.3 g/dL (32.0-36.0) 04/06/22 05:20 RDW 21.4 % (12.0-15.0) H 04/06/22 05:20 Plt Count 39 10^3/uL (130-450) L 04/06/22 05:20 MPV 9.3 fL (7.4-11.4) 04/06/22 05:20 Neut # (Auto) Not Reportable 04/06/22 05:20 Lymph # (Auto) Not Reportable 04/06/22 05:20 [place] # (Auto) Not Reportable 04/06/22 05:20 Eos # (Auto) Not Reportable 04/06/22 05:20 Baso # (Auto) Not Reportable 04/06/22 05:20 Absolute Nucleated RBC Not Reportable 04/06/22 05:20 Total Counted 100 04/06/22 05:20 Band Neuts % (Manual) 5 % (0-10) 04/06/22 05:20 Abnorm Lymph % (Manual) 0 % 04/06/22 05:20 Metamyelocytes % 2 % (-0) H 04/06/22 05:20 Nucleated RBC % Not Reportable 04/06/22 05:20 Neutrophils # (Manual) 4.9 10^3/uL (1.5-6.6) 04/06/22 05:20 Lymphocytes # (Manual) 0.7 10^3/uL (1.5-3.5) L 04/06/22 05:20 Monocytes # (Manual) 0.2 10^3/uL (0.0-1.0) 04/06/22 05:20 Eosinophils # (Manual) 0.0 10^3/uL (0-0.7) 04/06/22 05:20 Basophils # (Manual) 0.0 10^3/uL (0-0.1) 04/06/22 05:20 Differential Comment MANUAL DIFFERENTIAL 04/06/22 05:20 Manual Slide Review Indicated 04/03/22 05:12 WBC Morphology NORMAL APPEARANCE (NORMAL) 04/06/22 05:20 Platelet Estimate DECREASED (<130,000) (NORMAL) 04/06/22 05:20 Platelet Morphology NORMAL APPEARANCE (NORMAL) 04/06/22 05:20 RBC Morph Micro Appear 2+ ANISOCYTOSIS (NORMAL) 1+ MACROCYTOSIS (NORMAL) 1+ OVALOCYTES (NORMAL) 04/06/22 05:20 RBC Morph Micro Appear 2+ ANISOCYTOSIS (NORMAL) 1+ MACROCYTOSIS (NORMAL) 1+ OVALOCYTES (NORMAL) 04/06/22 05:20 RBC Morph Micro Appear 2+ ANISOCYTOSIS (NORMAL) 1+ MACROCYTOSIS (NORMAL) 1+ OVALOCYTES (NORMAL) 04/06/22 05:20 PT 12.8 secs (9.9-12.6) H 04/02/22 05:49 INR 1.2 (0.8-1.2) 04/02/22 05:49 Sodium 138 mmol/L (135-145) 04/06/22 05:20 Potassium 3.8 mmol/L (3.5-5.0) 04/06/22 05:20 Chloride 109 mmol/L (101-111) 04/06/22 05:20 Carbon Dioxide 23 mmol/L (21-32) 04/06/22 05:20 Anion Gap 6.0 (6-13) 04/06/22 05:20 BUN 47 mg/dL (6-20) H 04/06/22 05:20 Creatinine 1.5 mg/dL (0.6-1.2) H 04/06/22 05:20 Estimated GFR (MDRD) 46 (>89) L 04/06/22 05:20 Glucose 156 mg/dL (70-100) H 04/06/22 05:20 Calcium 7.8 mg/dL (8.5-10.3) L 04/06/22 05:20 Magnesium 1.9 mg/dL (1.7-2.8) 04/06/22 05:20 Total Bilirubin 0.6 mg/dL (0.2-1.0) 04/02/22 05:49 AST 19 IU/L (10-42) 04/02/22 05:49 ALT 21 IU/L (10-60) 04/02/22 05:49 Alkaline Phosphatase 63 IU/L (42-121) 04/02/22 05:49 Total Protein 5.3 g/dL (6.7-8.2) L 04/02/22 05:49 Albumin 2.7 g/dL (3.2-5.5) L 04/02/22 05:49 Globulin 2.6 g/dL (2.1-4.2) 04/02/22 05:49 Albumin/Globulin Ratio 1.0 (1.0-2.2) 04/02/22 05:49 Lipase 21 U/L (22-51) L 04/02/22 05:49 Urine Color RED/BLOODY 04/02/22 11:40 Urine Clarity TURBID (CLEAR) 04/02/22 11:40 Urine pH 6.0 PH (5.0-7.5) 04/02/22 11:40 Ur Specific [place] 1.025 (1.002-1.030) 04/02/22 11:40 Urine Protein >=300 mg/dL (NEGATIVE) H 04/02/22 11:40 Urine Glucose (UA) NEGATIVE mg/dL (NEGATIVE) 04/02/22 11:40 Urine Ketones NEGATIVE mg/dL (NEGATIVE) 04/02/22 11:40 Urine Occult Blood LARGE (NEGATIVE) H 04/02/22 11:40 Urine Nitrite NEGATIVE (NEGATIVE) 04/02/22 11:40 Urine Bilirubin NEGATIVE (NEGATIVE) 04/02/22 11:40 Urine Urobilinogen 0.2 (NORMAL) E.U./dL (NORMAL) 04/02/22 11:40 Ur Leukocyte Esterase NEGATIVE (NEGATIVE) 04/02/22 11:40 Urine RBC TNTC /HPF (0-5) H 04/02/22 11:40 Urine WBC 6-10 /HPF (0-3) H 04/02/22 11:40 Ur Squamous Epith Cells NONE SEEN (<= Few) 04/02/22 11:40 Urine Bacteria None Seen /HPF (None Seen) 04/02/22 11:40 Urine Yeast PRESENT 04/02/22 11:40 Ur Microscopic Review INDICATED 04/02/22 11:40 Urine Culture Comments NOT INDICATED 04/02/22 11:40 Stl C. diff Tox B Gene POSITIVE (NEGATIVE) A* 04/05/22 13:50 SARS-CoV-2 (PCR) NOT DETECTED 04/02/22 14:53 Blood Type O POSITIVE 04/06/22 09:31 Antibody Screen NEGATIVE 04/02/22 05:49 Crossmatch IS Only See Detail 04/02/22 05:49 - Procedures Procedures: Procedures TRANSFUSE NONAUT PLATELETS IN PERIPH VEIN, PERC (06/24/21)
--- NOTE | 2022-04-06 18:30 | CONSULTATION NOTE ---
Referring Provider Name of Referring Provider:: Lola Estevez) Consult Date: 04/06/22 Chief Complaint - Chief Complaint Chief Complaint: decubitus wound History of Present Illness - Admitted From Admitted From:: ED - History Obtained From Records Reviewed: yes History obtained from: patient, records, primary team - History of Present Illness HPI Comment/Other: The patient states he has had a wound on his buttock for an indeterminate period of time, but believes that its been present since time time last year. 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 He has also struggled with hemorrhoids for some time, though he is unable to articulate when this problem began. He has been struggling with diarrhea for several weeks, which has made wound care in this area difficult for him and his care team. As there was concern for worsening of his wounds, I am consulted today. He continues to have diarrhea with frequent bowel movements. He does feel that his buttock area is painful. History - Past Medical History Cardiovascular: reports: Coronary artery disease, Atrial fibrillation (On chronic anticoagulation) Respiratory: reports: None Neuro: reports: None Endocrine/Autoimmune: reports: None, Other GI: reports: GERD, Hemorrhoids : reports: Incontinence, Chronic bladder infection, Frequency HEENT: reports: Other (cataracts sp cataract surgery ) Psych: reports: None Musculoskeletal: reports: Fatigue, Other Derm: reports: None, Other (paper thin skin loss of sub q tissue ) MRSA Hx?: No - Past Surgical History Ortho: reports: Knee replacement HEENT: reports: Cataracts - Family & Social History Family History: Mother: , Father: Family History Comment/Other: Patient report his father from cancer at age 70. His mother from major heart problem at age 70 as well. Living Situation: Alone, Other (has close friend from [employer] who can come help him ) Social History Notes: Patient report he never smoke, he has no alcohol or drug issue - Substance History Use: Uses substance without health or social issues: NONE - POLST Patient has POLST: No Meds/Allgy - Home Medications Home Medications: Ambulatory Orders Medication Instructions Recorded Confirmed Rosuvastatin Calcium [Crestor] 10 mg PO DAILY 03/30/21 04/02/22 Tamsulosin HCl [Flomax] 0.4 mg PO DAILY 03/30/21 04/02/22 predniSONE [Deltasone] 8 mg PO DAILY 03/31/21 04/02/22 Calcium Carbonate/Vitamin D3 1 each PO DAILY 06/15/21 04/02/22 [Calcium 600-Vit D3 200 Tablet] Metoprolol Succinate 100 mg PO DAILY 06/24/21 04/02/22 Apixaban [Eliquis] 2.5 mg PO BID 11/09/21 04/02/22 Amiodarone [Pacerone] 200 mg PO DAILY 04/02/22 04/02/22 Ofloxacin 0.3% Ophth Drops 1 drops LEFTEYE DAILY 04/02/22 04/02/22 [Ocuflox 0.3% Ophth Drops] prednisoLONE 1% OPHTH DROPS [Pred 1 drops LEFTEYE DAILY 04/02/22 04/02/22 Forte 1% Ophth Drops] - Allergies Allergies/Adverse Reactions: Allergies Allergy/AdvReac Type Severity Reaction Status Date / Time No Known Drug Allergies Allergy Verified 04/02/22 05:30 Review of Systems - Constitutional Constitutional: reports: Poor appetite - Ears, Nose & Throat Ears, Nose & Throat: reports: Nasal discharge, Nosebleeds - Cardiovascular Cariovascular: reports: Irregular heart rate - Respiratory Respiratory: reports: Cough - Gastrointestinal Gastrointestinal: reports: Diarrhea - Genitourinary Genitourinary: reports: Other (Chronic suprapubic catheter) - Musculoskeletal Musculoskeletal: reports: Muscle weakness - Integumentary Integumentary: reports: Lesions - Neurological Neurological: reports: General weakness - Hematologic/Lymphatic Hematologic/Lymphatic: reports: Anemia, Blood clots, Other (Myelodysplastic syndrome) Exam - Vital Signs Reviewed Vital Signs: Yes Vital Signs: Vital Signs x48h Temp Pulse Pulse Resp BP Pulse Ox O2 Flow Rate 04/06/22 17:54 36.6 C 86 20 103/56 L 95 04/06/22 17:40 36.2 C L 92 20 112/53 L 98 04/06/22 17:25 36.2 C L 89 20 105/60 99 04/06/22 15:44 36.2 C L 65 16 92/51 L 97 04/06/22 11:05 36.3 C L 131 H 131 H 18 91/62 97 - Physical Exam General Appearance: positive: No acute distress, Alert Eyes Bilateral: positive: Normal inspection, Other (Wearing glasses with patch over left eye) ENT: positive: Dry mucous membranes Neck: positive: Trachea midline Respiratory: positive: No respiratory distress Cardiovascular: positive: Irregularly irregular, Tachycardia Peripheral Pulses: positive: 1+ Abdomen: positive: Non-tender. negative: Guarding, Rebound Rectal: positive: Nodule (area of inflammation and chronic appearing granulation in superior/posterior position.) Skin: positive: Decubitus (large area of non blanchable discoloration which appears superficial) Extremities: positive: Other (weakness) Neurologic/Psychiatric: positive: Oriented x3 Conclusion and Plan - Lab Results Laboratory Results 04/06/22 13:16: Hgb 7.5 L 04/06/22 09:31: Blood Type O POSITIVE 04/06/22 05:20: Sodium 138, Potassium 3.8, Chloride 109, Carbon Dioxide 23, Anion Gap 6.0, BUN 47 H, Creatinine 1.5 H, Estimated GFR (MDRD) 46 L, Glucose 156 H, Calcium 7.8 L, Magnesium 1.9 04/06/22 05:20: WBC 5.9, RBC 2.34 L, Hgb 7.6 L, Hct 23.5 L, MCV 100.4 H, MCH 32.5 H, MCHC 32.3, RDW 21.4 H, Plt Count 39 L, MPV 9.3, Neut # (Auto) Not Reportable, Lymph # (Auto) Not Reportable, [place] # (Auto) Not Reportable, Eos # (Auto) Not Reportable, Baso # (Auto) Not Reportable, Absolute Nucleated RBC Not Reportable, Total Counted 100, Band Neuts % (Manual) 5, Abnorm Lymph % (Manual) 0, Metamyelocytes % 2 H, Nucleated RBC % Not Reportable, Neutrophils # (Manual) 4.9, Lymphocytes # (Manual) 0.7 L, Monocytes # (Manual) 0.2, Eosinophils # (Manual) 0.0, Basophils # (Manual) 0.0, Differential Comment MANUAL D IFFERENTIAL, WBC Morphology NORMAL APPEARANCE, Platelet Estimate DECREASED (<130,000), Platelet Morphology NORMAL APPEARANCE, RBC Morph Micro Appear 1+ OVALOCYTES 04/05/22 15:46: Plt Count 47 L 04/05/22 15:46: Hgb 8.7 L 04/05/22 13:50: Stl C. diff Tox B Gene POSITIVE A* 04/05/22 05:00: Sodium 140, Potassium 3.7, Chloride 106, Carbon Dioxide 23, Anion Gap 11.0, BUN 38 H, Creatinine 1.5 H, Estimated GFR (MDRD) 46 L, Glucose 141 H, Calcium 7.9 L 04/05/22 05:00: WBC 7.0, RBC 2.60 L, Hgb 8.5 L, Hct 26.0 L, MCV 100.0 H, MCH 32.7 H, MCHC 32.7, RDW 21.8 H, Plt Count 53 L, MPV 9.2, Neut # (Auto) Not Reportable, Lymph # (Auto) Not Reportable, [place] # (Auto) Not Reportable, Eos # (Auto) Not Reportable, Baso # (Auto) Not Reportable, Absolute Nucleated RBC Not Reportable, Total Counted 100, Band Neuts % (Manual) 8, Abnorm Lymph % (Manual) 0, Nucleated RBC % Not Reportable, Neutrophils # (Manual) 6.1, Lymphocytes # (Manual) 0.5 L, Monocytes # (Manual) 0.4, Eosinophils # (Manual) 0.0, Basophils # (Manual) 0.0, Differential Comment MANUAL DIFFERENTIAL, WBC Morphology NORMAL APPEARANCE, Platelet Estimate DECREASED (<130,000), Platelet Morphology NORMAL APPEARANCE, RBC Morph Micro Appear 1+ MACROCYTOSIS - Diagnostic Imaging Results Diagnostic Imaging Results Comments: CT scan from 04/02/22 demonstrates distal colitis. I personally reviewed the images and results of this study. - Consultation Note Consultation Note: Is a 71-year-old male with: 1. sacral decubitus wound - stage 2 - recommend offloading the wound and placing barrier cream - change dressing BID or as needed to keep wound clean of stool (it is not necessary to remove all barrier cream with each dressing change) 2. anal lesion - plan for punch biopsy tomorrow (patient receiving platelet transfusion today) 3. myleodysplastic syndrome, c diff colitis, atrial fibrillation, hypotension, tachycardia - as per primary team Thank you for consulting us in the care of this patient. I will do punch biopsy tomorrow.
[2022-04-06] MEDS: ATORVASTATIN 10 MG TABLET PO SCH (22:01)
[2022-04-07] MEDS: HYDROmorphone 1 MG/ML CARPUJECT IVP PRN (00:31)
[2022-04-07] MEDS: SODIUM CHLORIDE FLUSH 0.9% 10 ML SYRINGE IVP SCH ×3 (00:32→17:02)
[2022-04-07] MEDS: SODIUM CHLORIDE 0.9% 1,000 ML IV SCH ×2 (04:54→18:02)
[2022-04-07 05:14] LABS: BASOPHILS % (AUTO) 1.1 %; HCT - HEMATOCRIT 20.6 % (42.0-52.0); LYMPHOCYTES % (AUTO) 9.8 %; MEAN CORPUSCULAR HEMOGLOBIN 32.4 pg (27.0-31.0); MEAN PLATELET VOLUME 10.4 fL (7.4-11.4); MONOCYTES % (AUTO) 7.7 %; NEUTROPHILS % (AUTO) 80.7 %; PLT - PLATELET COUNT 61 10^3/uL (130-450); RED BLOOD COUNT 2.04 10^6/uL (4.70-6.10); RED CELL DISTRIBUTION WIDTH 21.4 % (12.0-15.0); WHITE BLOOD COUNT 2.9 x10^3/uL (4.8-10.8)
[2022-04-07 05:18] LABS: HGB - HEMOGLOBIN 6.6 g/dL (14.0-18.0)
[2022-04-07 05:19] LABS: ABNORMAL LYMPHS % (MANUAL) 0 %
[2022-04-07 05:24] LABS: CALCIUM 7.3 mg/dL (8.5-10.3); POTASSIUM 3.4 mmol/L (3.5-5.0)
[2022-04-07 05:32] LABS: BAND NEUTROPHILS % (MANUAL) 2 %; LYMPHOCYTES # (MANUAL) 0.3 10^3/uL (1.5-3.5); LYMPHOCYTES % (MANUAL) 10 %; METAMYELOCYTES % (MANUAL) 1 %; MONOCYTES # (MANUAL) 0.1 10^3/uL (0.0-1.0); NEUTROPHILS # (MANUAL) 2.5 10^3/uL (1.5-6.6)
[2022-04-07 05:33] LABS: DIFFERENTIAL COMMENT MANUAL DIFFERENTIAL; PLATELET ESTIMATE, MANUAL DECREASED (<130,000) (NORMAL); PLATELET MORPHOLOGY NORMAL APPEARANCE (NORMAL); WBC MORPHOLOGY (MULTIPLE) NORMAL APPEARANCE (NORMAL)
[2022-04-07] MEDS: HYDROCORTISONE SUCCINATE 100 MG/2 ML VIAL IVP SCH ×3 (06:43→21:54)
[2022-04-07] MEDS: PANTOPRAZOLE 40 MG TABLET PO SCH ×2 (06:57→07:05)
[2022-04-07] MEDS ORDERED: SILVER NITRATE APPLICATOR TOP ONE (07:28)
[2022-04-07] MEDS ORDERED: LIDOCAINE MPF 2%-EPI 1:200000 20 ML VIAL ONE (07:29)
--- NOTE | 2022-04-07 07:37 | PROVIDER PROGRESS NOTE ---
Subjective - General Admit Date: 04/02/22 - Review of Systems All Other Systems: positive: Reviewed and negative - Other Other Information/Narrative: Patient is very uncomfortable this morning and feels like he needs to void and have a bowel movement. He is struggling with urinary retention and continues to have frequent bowel movements. Objective - Patient Data Reviewed Vital Signs: Yes Vital Signs: Vital Signs x48h Temp Pulse Resp BP Pulse Ox 04/07/22 04:51 36.2 C L 84 18 112/51 L 97 Intake & Output: Intake and Output Totals x24h 04/05/22 04/06/22 04/07/22 23:59 23:59 23:59 Intake Total 1270 4395.400 895 Output Total 1500 400 Balance -230 4395.400 495 - Lab Results Lab Results: 04/07/22 04:45 04/07/22 04:45 Other Lab Results: Lab Results x24hrs 04/07/22 04/07/22 04/06/22 Range/Units 04:45 04:45 13:16 WBC 2.9 L (4.8-10.8) x10^3/uL RBC 2.04 L (4.70-6.10) 10^6/uL Hgb 6.6 L* 7.5 L (14.0-18.0) g/dL Hct 20.6 L (42.0-52.0) % MCV 101.0 H (80.0-94.0) fL MCH 32.4 H (27.0-31.0) pg MCHC 32.0 (32.0-36.0) g/dL RDW 21.4 H (12.0-15.0) % Plt Count 61 L (130-450) 10^3/uL MPV 10.4 (7.4-11.4) fL Neut # (Auto) Not Reportable Lymph # (Auto) Not Reportable Harper # (Auto) Not Reportable Eos # (Auto) Not Reportable Baso # (Auto) Not Reportable Absolute Nucleated RBC Not Reportable Total Counted 100 Band Neuts % (Manual) 2 (0 - 10) % Abnorm Lymph % (Manual) 0 % Metamyelocytes % 1 H ( - 0) % Nucleated RBC % Not Reportable Neutrophils # (Manual) 2.5 (1.5-6.6) 10^3/uL Lymphocytes # (Manual) 0.3 L (1.5-3.5) 10^3/uL Monocytes # (Manual) 0.1 (0.0-1.0) 10^3/uL Eosinophils # (Manual) 0.0 (0-0.7) 10^3/uL Basophils # (Manual) 0.0 (0-0.1) 10^3/uL Differential Comment MANUAL DIFFERENTIAL WBC Morphology NORMAL APPEARANCE (NORMAL) Platelet Estimate DECREASED (<130,000) (NORMAL) Platelet Morphology NORMAL APPEARANCE (NORMAL) RBC Morph Micro Appear 1+ OVALOCYTES (NORMAL) Sodium 142 (135-145) mmol/L Potassium 3.4 L (3.5-5.0) mmol/L Chloride 114 H (101-111) mmol/L Carbon Dioxide 22 (21-32) mmol/L Anion Gap 6.0 (6-13) BUN 40 H (6-20) mg/dL Creatinine 1.0 (0.6-1.2) mg/dL Estimated GFR (MDRD) 74 L (>89) Glucose 164 H (70-100) mg/dL Calcium 7.3 L (8.5-10.3) mg/dL Magnesium 2.0 (1.7-2.8) mg/dL Blood Type Antibody Screen Crossmatch IS Only 04/06/22 Range/Units 09:31 WBC (4.8-10.8) x10^3/uL RBC (4.70-6.10) 10^6/uL Hgb (14.0-18.0) g/dL Hct (42.0-52.0) % MCV (80.0-94.0) fL MCH (27.0-31.0) pg MCHC (32.0-36.0) g/dL RDW (12.0-15.0) % Plt Count (130-450) 10^3/uL MPV (7.4-11.4) fL Neut # (Auto) Lymph # (Auto) Harper # (Auto) Eos # (Auto) Baso # (Auto) Absolute Nucleated RBC Total Counted Band Neuts % (Manual) (0 - 10) % Abnorm Lymph % (Manual) % Metamyelocytes % ( - 0) % Nucleated RBC % Neutrophils # (Manual) (1.5-6.6) 10^3/uL Lymphocytes # (Manual) (1.5-3.5) 10^3/uL Monocytes # (Manual) (0.0-1.0) 10^3/uL Eosinophils # (Manual) (0-0.7) 10^3/uL Basophils # (Manual) (0-0.1) 10^3/uL Differential Comment WBC Morphology (NORMAL) Platelet Estimate (NORMAL) Platelet Morphology (NORMAL) RBC Morph Micro Appear (NORMAL) Sodium (135-145) mmol/L Potassium (3.5-5.0) mmol/L Chloride (101-111) mmol/L Carbon Dioxide (21-32) mmol/L Anion Gap (6-13) BUN (6-20) mg/dL Creatinine (0.6-1.2) mg/dL Estimated GFR (MDRD) (>89) Glucose (70-100) mg/dL Calcium (8.5-10.3) mg/dL Magnesium (1.7-2.8) mg/dL Blood Type O POSITIVE Antibody Screen NEGATIVE Crossmatch IS Only See Detail - Current Medications Current Medications: Current Medications Generic Name Dose Route Start Last Admin Trade Name Freq PRN Reason Stop Dose Admin Acetaminophen 650 mg 04/02/22 16:39 04/06/22 06:39 Acetaminophen 325 Mg Tablet PO 650 mg Q4HR PRN Administration Pain 1 to 4, or Fever Atorvastatin Calcium 10 mg 04/04/22 21:00 04/06/22 22:01 Atorvastatin 10 Mg Tablet PO 10 mg 2100 JUJU Administration Calcium Carbonate/Glycine 500 mg 04/04/22 09:00 04/06/22 08:15 Calcium Carb (Oyster Shell) 500 Mg Tablet PO 500 mg 0900 JUJU Administration Calcium Carbonate/Glycine 500 mg 04/04/22 18:17 04/05/22 02:19 Calcium Carbonate Chew 500 Mg Tablet PO 500 mg TID PRN Administration INDIGESTION Cholecalciferol 50 mcg 04/04/22 17:00 04/06/22 08:15 Cholecalciferol 25 Mcg Tablet PO 50 mcg DAILY JUJU Administration Fluticasone Propionate 1 sprays 04/05/22 09:00 04/06/22 08:16 Fluticasone Nasal [place] SHENA 1 spr DAILY JUJU Administration Heparin Sodium (Beef Lung) 30 - 50 unit 04/03/22 16:08 04/04/22 08:25 Heparin Flush 50 Units/5 Ml Syringe IVP 50 unit PRN PRN Administration Port Protocol (<24 hours) Hydrocortisone Sodium Succinate 100 mg 04/05/22 22:00 04/07/22 06:43 Hydrocortisone Succinate 100 Mg/2 Ml Vial IVP 100 mg TID JUJU Administration Hydromorphone HCl 1 mg 04/05/22 08:26 04/07/22 00:31 Hydromorphone 1 Mg/Ml Carpuject IVP 1 mg Q4HR PRN Administration PAIN Sodium Chloride 1,000 mls @ 150 mls/hr 04/06/22 13:55 04/07/22 04:54 Normal Saline 0.9% IV 150 mls/hr .Q6H40M JUJU Administration Multi-Ingredient Ointment 1 applic 04/04/22 10:11 04/05/22 06:00 Zinc Oxide 20% Oint 30 Gm Tube TOP 1 applic PRN PRN Administration Skin Care Multivitamins/Minerals 1 tab 04/04/22 17:00 04/06/22 08:15 Multivitamin W/Minerals Tablet PO 1 tab DAILYWM JUJU Administration Ofloxacin 1 drops 04/04/22 09:00 04/06/22 08:16 Ofloxacin 0.3% Ophth Drops LEFTEYE 1 drops DAILY JUJU Administration Ondansetron HCl 4 mg 04/02/22 16:39 04/05/22 02:20 Ondansetron 4 Mg/2 Ml Vial IVP 4 mg Q6HR PRN Administration Nausea / Vomiting Oxycodone HCl 5 mg 04/05/22 08:52 04/06/22 08:58 Oxycodone 5 Mg Tablet PO 5 mg Q6HR PRN Administration Pain 5 to 7 Pantoprazole Sodium 40 mg 04/04/22 19:00 04/07/22 07:05 Pantoprazole 40 Mg Tablet PO Not Given QDAC JUJU Prednisolone 1 drops 04/04/22 09:00 04/06/22 08:16 Prednisolone 1% Ophth Drops 75 Drops/5 Ml Bottle LEFTEYE 1 drops DAILY JUJU Administration Sodium Chloride 10 ml 04/02/22 16:39 04/06/22 14:20 Sodium Chloride Flush 0.9% 10 Ml Syringe IVP 10 ml PRN PRN Administration NEEDED PER PROVIDER ORDERS Sodium Chloride 10 ml 04/02/22 17:00 01/26/23 00:32 Sodium Chloride Flush 0.9% 10 Ml Syringe IVP 10 ml 0100,0900,1700 JUJU Administration Tamsulosin HCl 0.4 mg 04/04/22 09:00 04/06/22 08:15 Tamsulosin 0.4 Mg Capsule PO 0.4 mg DAILY JUJU Administration Vancomycin HCl 125 mg 04/05/22 17:00 04/06/22 22:01 Vancomycin 125 Mg Capsule PO 125 mg QID JUJU Administration [place]/Glycerin 1 pad 04/03/22 15:28 04/03/22 20:58 [place]/Glycerin 1 Pad TOP 1 pad PRN PRN Administration ITCHING - Physical Exam Wound/Incisions: positive: Decubitis (barrier cream in place, otherwise unchanged) General Appearance: positive: Mild distress (uncomfortable due to need to void) Eyes Bilateral: positive: Normal inspection, EOMI, Other (patch over left eye) ENT: positive: No signs of dehydration Neck: positive: Trachea midline Respiratory: positive: No respiratory distress Cardiovascular: positive: Regular rate & rhythm Abdomen: positive: Tenderness (suprapubic). negative: Guarding, Rebound Rectal: positive: Nodule (anal nodule in posterior position, unchanged) Extremities: positive: Full ROM Neurologic/Psychiatric: positive: Oriented x3 Impression/Plan - Problem List Problem List: Is a 71-year-old male with: 1. sacral decubitus wound - stage 2, no need for surgical intervention at this time - continue offloading the wound and placing barrier cream - change dressing BID or as needed to keep wound clean of stool (it is not necessary to remove all barrier cream with each dressing change) 2. anal lesion - plan for punch biopsy today (patient receiving platelet transfusion today) 3. myleodysplastic syndrome, c diff colitis, atrial fibrillation, hypotension, tachycardia - as per primary team Thank you for consulting us in the care of this patient. I will do punch biopsy today.
[2022-04-07] MEDS: OFLOXACIN 0.3% OPHTH DROPS LEFTEYE SCH (08:27)
[2022-04-07] MEDS: prednisoLONE 1% OPHTH DROPS 75 DROPS/5 ML BOTTLE LEFTEYE SCH (08:28)
[2022-04-07] MEDS: FLUTICASONE NASAL SPRAY NAS SCH (08:30)
[2022-04-07] MEDS: CHOLECALCIFEROL 25 MCG TABLET PO SCH (08:43)
[2022-04-07] MEDS: CALCIUM CARB (OYSTER SHELL) 500 MG TABLET PO SCH (08:43)
[2022-04-07] MEDS: TAMSULOSIN 0.4 MG CAPSULE PO SCH (08:43)
[2022-04-07] MEDS: MULTIVITAMIN W/MINERALS TABLET PO SCH (08:43)
[2022-04-07] MEDS: VANCOMYCIN 125 MG CAPSULE PO SCH ×4 (08:43→21:54)
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
[2022-04-07] MEDS: SACCHAROMYCES BOULARDII 250 MG CAPSULE PO SCH ×2 (13:40→17:02)
[2022-04-07] MEDS: CALCIUM CARBONATE CHEW 500 MG TABLET PO PRN (13:40)
[2022-04-07 14:00] LABS: HCT - HEMATOCRIT 24.7 % (42.0-52.0)
--- NOTE | 2022-04-07 14:31 | CT Report ---
PROCEDURE: HEAD WO INDICATIONS: AMS TECHNIQUE: Noncontrast 4.5 mm thick angled axial sections acquired from the foramen magnum to the vertex. For r adiation dose reduction, the following was used: automated exposure control, adjustment of mA and/or kV according to patient size. COMPARISON: 03/01/2022 FINDINGS: Image quality: Motion degraded. CSF spaces: Basal cisterns are patent. No extra-axial fluid collections. Ventricles are normal in size and shape. Brain: No midline shift. No intracranial masses or hemorrhage. Estrada-white matter interface is norm al. Skull and face: Calvarium and visualized facial bones are intact, without suspicious lesions. Sinuses: Visualized sinuses and mastoids are clear. IMPRESSION: No acute intracranial abnormality. No significant change from 03/01/2022 exam. Reviewed by: Siva Kerns MD on 04/07/2022 2:30 PM PST Approved by: Siva Kerns MD on 04/07/2022 2:30 PM PST Station ID: [id number]
--- NOTE | 2022-04-07 15:51 | PROCEDURE REPORT ---
Hospitalist Procedure Note - Procedure Note Procedure Note: Date: 04/07/22 Pre op dx: anal skin lesion Post op dx: anal skin lesion Procedure: biopsy of anal skin lesion Surgeon: Dr. Shyann Galicia EBL: 10mL Implant: none Anesthesia: local with 2% lidocaine with epi, 10mL Specimen: skin lesion, sent to pathology Indication: The patient has a longstanding history of "hemorrhoids" which have become increasingly worrisome to the patient. He has had rectal bleeding and is often anemic and thrombocytopenic due to MDS. We discussed the risks, benefits, and alternatives of skin biopsy including bleeding and infection. The patient voiced understanding, his questions were answered, and he wished to proceed. A consent was signed. Complications: None Procedure in detail: Procedure was performed in the patient's room. A preprocedure timeout was performed. He was prepped and draped in the usual sterile fashion. 2% lidocaine with epinephrine was used anesthetize the sick skin and subcutaneous tissues and the amount of 10 mL. Anesthesia was confirmed. Then an 8 mm punch biopsy was used to take a biopsy of the skin in the area of concern. This was removed with iris sutures. Pressure was held. Silver nitrate was applied. And a [id number] suture of 3-0 Vicryl was applied to obtain hemostasis. Hemostasis was confirmed. The patient tolerated the procedure well. There were no complications. The specimen was sent to pathology.
[2022-04-07] MEDS: ATORVASTATIN 10 MG TABLET PO SCH (21:54)
[2022-04-08] MEDS: SODIUM CHLORIDE 0.9% 1,000 ML IV SCH ×3 (00:50→19:34)
[2022-04-08] MEDS: SODIUM CHLORIDE FLUSH 0.9% 10 ML SYRINGE IVP SCH ×3 (01:47→17:23)
[2022-04-08] MEDS ORDERED: CARBOXYMETHYLCELLULOSE OPHTH DROPS EACHEYE PRN (03:45)
[2022-04-08] MEDS: HYDROCORTISONE SUCCINATE 100 MG/2 ML VIAL IVP SCH ×3 (06:12→22:02)
[2022-04-08] MEDS: PANTOPRAZOLE 40 MG TABLET PO SCH (06:12)
[2022-04-08 06:26] LABS: BASOPHILS % (AUTO) 0.6 %; HCT - HEMATOCRIT 21.2 % (42.0-52.0); LYMPHOCYTES % (AUTO) 13.8 %; MEAN CORPUSCULAR HEMOGLOBIN 31.5 pg (27.0-31.0); MEAN CORPUSCULAR HGB CONC 32.1 g/dL (32.0-36.0); MEAN CORPUSCULAR VOLUME 98.1 fL (80.0-94.0); MEAN PLATELET VOLUME 10.9 fL (7.4-11.4); MONOCYTES % (AUTO) 11.5 %; PLT - PLATELET COUNT 45 10^3/uL (130-450); RED BLOOD COUNT 2.16 10^6/uL (4.70-6.10); RED CELL DISTRIBUTION WIDTH 24.5 % (12.0-15.0)
[2022-04-08 06:33] LABS: POTASSIUM 3.3 mmol/L (3.5-5.0)
[2022-04-08 06:35] LABS: WHITE BLOOD COUNT 1.7 x10^3/uL (4.8-10.8)
[2022-04-08 06:36] LABS: HGB - HEMOGLOBIN 6.8 g/dL (14.0-18.0)
[2022-04-08 06:37] LABS: ABNORMAL LYMPHS % (MANUAL) 0 %
[2022-04-08 06:59] LABS: BAND NEUTROPHILS % (MANUAL) 7 %; LYMPHOCYTES # (MANUAL) 0.2 10^3/uL (1.5-3.5); LYMPHOCYTES % (MANUAL) 10 %; MONOCYTES # (MANUAL) 0.1 10^3/uL (0.0-1.0); NEUTROPHILS # (MANUAL) 1.4 10^3/uL (1.5-6.6)
[2022-04-08 07:00] LABS: DIFFERENTIAL COMMENT MANUAL DIFFERENTIAL; PLATELET ESTIMATE, MANUAL DECREASED (<130,000) (NORMAL)
[2022-04-08] MEDS ORDERED: HYDROmorphone 1 MG/ML CARPUJECT IVP PRN (08:02)
[2022-04-08] MEDS: AMIODARONE 200 MG TABLET PO SCH (08:45)
[2022-04-08] MEDS: CHOLECALCIFEROL 25 MCG TABLET PO SCH (08:45)
[2022-04-08] MEDS: CALCIUM CARB (OYSTER SHELL) 500 MG TABLET PO SCH (08:45)
[2022-04-08] MEDS: MULTIVITAMIN W/MINERALS TABLET PO SCH (08:45)
[2022-04-08] MEDS: FLUTICASONE NASAL SPRAY NAS SCH (08:46)
[2022-04-08] MEDS: TAMSULOSIN 0.4 MG CAPSULE PO SCH (08:46)
[2022-04-08] MEDS: VANCOMYCIN 125 MG CAPSULE PO SCH ×4 (08:46→22:02)
[2022-04-08] MEDS: OFLOXACIN 0.3% OPHTH DROPS LEFTEYE SCH (08:47)
[2022-04-08] MEDS: prednisoLONE 1% OPHTH DROPS 75 DROPS/5 ML BOTTLE LEFTEYE SCH (08:59)
[2022-04-08] MEDS: COD LIVER OIL/ZINC OXIDE 113 GM TUBE TOP PRN (13:22)
[2022-04-08] MEDS: SODIUM CHLORIDE FLUSH 0.9% 10 ML SYRINGE IVP PRN (13:25)
[2022-04-08] MEDS: ACETAMINOPHEN 325 MG TABLET PO PRN ×3 (14:38→23:47)
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
[2022-04-08] MEDS: PPN (CLINIMIX E 4.25/5) 2,000 ML with MULTIVITAMIN 10 ML, TRACE ELEMENTS 1 ML IV SCH ×3 (19:10)
[2022-04-08] MEDS: FAT EMULSION 20% 250 ML IV SCH (19:10)
[2022-04-08] MEDS: ATORVASTATIN 10 MG TABLET PO SCH (22:02)
[2022-04-09] MEDS: SODIUM CHLORIDE FLUSH 0.9% 10 ML SYRINGE IVP SCH ×3 (00:14→17:15)
[2022-04-09] MEDS: SODIUM CHLORIDE 0.9% 1,000 ML IV SCH ×2 (00:15→15:59)
[2022-04-09] MEDS: PANTOPRAZOLE 40 MG TABLET PO SCH (05:37)
[2022-04-09] MEDS: HYDROCORTISONE SUCCINATE 100 MG/2 ML VIAL IVP SCH ×3 (05:37→21:48)
[2022-04-09 06:19] LABS: ALBUMIN 1.8 g/dL (3.2-5.5); ALBUMIN/GLOBULIN RATIO 0.8 (1.0-2.2); BILIRUBIN,TOTAL 0.4 mg/dL (0.2-1.0); CALCIUM 7.4 mg/dL (8.5-10.3); CREATININE 0.9 mg/dL (0.6-1.2); MAGNESIUM 2.3 mg/dL (1.7-2.8); PHOSPHORUS 1.9 mg/dL (2.5-4.6); POTASSIUM 3.3 mmol/L (3.5-5.0)
[2022-04-09] MEDS: CHOLECALCIFEROL 25 MCG TABLET PO SCH (09:08)
[2022-04-09] MEDS: TAMSULOSIN 0.4 MG CAPSULE PO SCH (09:08)
[2022-04-09] MEDS: CALCIUM CARB (OYSTER SHELL) 500 MG TABLET PO SCH (09:08)
[2022-04-09] MEDS: AMIODARONE 200 MG TABLET PO SCH (09:08)
[2022-04-09] MEDS: VANCOMYCIN 125 MG CAPSULE PO SCH ×4 (09:08→21:48)
[2022-04-09] MEDS: prednisoLONE 1% OPHTH DROPS 75 DROPS/5 ML BOTTLE LEFTEYE SCH (09:11)
[2022-04-09] MEDS: OFLOXACIN 0.3% OPHTH DROPS LEFTEYE SCH (09:11)
[2022-04-09] MEDS: FLUTICASONE NASAL SPRAY NAS SCH (09:12)
[2022-04-09] MEDS ORDERED: CARBOXYMETHYLCELLULOSE OPHTH DROPS EACHEYE SCH (09:54)
[2022-04-09] MEDS: WITCH HAZEL/GLYCERIN 1 PAD TOP PRN (12:32)
[2022-04-09] MEDS: COD LIVER OIL/ZINC OXIDE 113 GM TUBE TOP PRN (12:32)
[2022-04-09] MEDS: ACETAMINOPHEN 325 MG TABLET PO PRN ×3 (12:36→21:48)
[2022-04-09] MEDS: SODIUM CHLORIDE FLUSH 0.9% 10 ML SYRINGE IVP PRN (14:03)
[2022-04-09] MEDS: CARBOXYMETHYLCELLULOSE OPHTH DROPS EACHEYE SCH ×2 (14:06→21:48)
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
[2022-04-09] MEDS: PPN (CLINIMIX E 4.25/5) 2,000 ML with MULTIVITAMIN 10 ML, TRACE ELEMENTS 1 ML IV SCH ×3 (19:07)
[2022-04-09] MEDS: FAT EMULSION 20% 250 ML IV SCH (19:07)
[2022-04-09] MEDS: ATORVASTATIN 10 MG TABLET PO SCH (21:47)
[2022-04-10] MEDS: SODIUM CHLORIDE FLUSH 0.9% 10 ML SYRINGE IVP SCH ×3 (02:24→16:53)
[2022-04-10] MEDS: ACETAMINOPHEN 325 MG TABLET PO PRN ×3 (02:25→12:00)
[2022-04-10] MEDS: CARBOXYMETHYLCELLULOSE OPHTH DROPS EACHEYE SCH ×3 (06:25→21:31)
[2022-04-10] MEDS: HYDROCORTISONE SUCCINATE 100 MG/2 ML VIAL IVP SCH ×3 (06:25→21:31)
[2022-04-10] MEDS: PANTOPRAZOLE 40 MG TABLET PO SCH (06:25)
[2022-04-10] MEDS: SODIUM CHLORIDE 0.9% 1,000 ML IV SCH ×4 (07:30→17:50)
[2022-04-10] MEDS: COD LIVER OIL/ZINC OXIDE 113 GM TUBE TOP PRN ×2 (09:10→14:55)
[2022-04-10] MEDS: WITCH HAZEL/GLYCERIN 1 PAD TOP PRN (09:10)
[2022-04-10] MEDS: AMIODARONE 200 MG TABLET PO SCH (09:28)
[2022-04-10] MEDS: VANCOMYCIN 125 MG CAPSULE PO SCH ×4 (09:29→21:33)
[2022-04-10] MEDS: CHOLECALCIFEROL 25 MCG TABLET PO SCH (09:29)
[2022-04-10] MEDS: TAMSULOSIN 0.4 MG CAPSULE PO SCH (09:29)
[2022-04-10] MEDS: FLUTICASONE NASAL SPRAY NAS SCH (09:29)
[2022-04-10] MEDS: CALCIUM CARB (OYSTER SHELL) 500 MG TABLET PO SCH (09:29)
[2022-04-10] MEDS: prednisoLONE 1% OPHTH DROPS 75 DROPS/5 ML BOTTLE LEFTEYE SCH (09:30)
[2022-04-10] MEDS: OFLOXACIN 0.3% OPHTH DROPS LEFTEYE SCH (09:30)
[2022-04-10 09:38] LABS: BASOPHILS % (AUTO) 0.4 %; HCT - HEMATOCRIT 24.2 % (42.0-52.0); HGB - HEMOGLOBIN 7.9 g/dL (14.0-18.0); LYMPHOCYTES # (AUTO) 0.3 10^3/uL (1.5-3.5); LYMPHOCYTES % (AUTO) 11.7 %; MEAN CORPUSCULAR HEMOGLOBIN 31.9 pg (27.0-31.0); MEAN CORPUSCULAR HGB CONC 32.6 g/dL (32.0-36.0); MEAN CORPUSCULAR VOLUME 97.6 fL (80.0-94.0); MEAN PLATELET VOLUME 10.6 fL (7.4-11.4); MONOCYTES # (AUTO) 0.3 10^3/uL (0.0-1.0); MONOCYTES % (AUTO) 10.8 %; NEUTROPHILS # (AUTO) 1.6 10^3/uL (1.5-6.6); NRBC ABSOLUTE COUNT (AUTO) 0.06 x10^3/uL; NUCLEATED RED BLOOD CELLS AUTO 2.6 /100WBC; RED BLOOD COUNT 2.48 10^6/uL (4.70-6.10); RED CELL DISTRIBUTION WIDTH 22.5 % (12.0-15.0); WHITE BLOOD COUNT 2.3 x10^3/uL (4.8-10.8)
[2022-04-10 09:58] LABS: ALBUMIN/GLOBULIN RATIO 0.9 (1.0-2.2); BILIRUBIN,TOTAL 0.5 mg/dL (0.2-1.0); CALCIUM 7.2 mg/dL (8.5-10.3); CREATININE 0.8 mg/dL (0.6-1.2); PLT - PLATELET COUNT 35 10^3/uL (130-450); POTASSIUM 3.7 mmol/L (3.5-5.0); SLIDE REVIEW? Indicated; TOTAL PROTEIN 4.3 g/dL (6.7-8.2)
[2022-04-10 10:24] LABS: PLATELET ESTIMATE, MANUAL DECREASED (<130,000) (NORMAL)
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
[2022-04-10] MEDS: oxyCODONE 5 MG TABLET PO PRN (16:53)
[2022-04-10] MEDS: FAT EMULSION 20% 250 ML IV SCH (19:45)
[2022-04-10] MEDS: PPN (CLINIMIX E 4.25/5) 2,000 ML with MULTIVITAMIN 10 ML, TRACE ELEMENTS 1 ML IV SCH ×3 (19:46)
[2022-04-10] MEDS: ATORVASTATIN 10 MG TABLET PO SCH (21:31)
[2022-04-11] MEDS: ACETAMINOPHEN 325 MG TABLET PO PRN ×5 (01:43→20:04)
[2022-04-11] MEDS: SODIUM CHLORIDE FLUSH 0.9% 10 ML SYRINGE IVP SCH ×3 (01:47→16:01)
[2022-04-11] MEDS: SODIUM CHLORIDE 0.9% 1,000 ML IV SCH ×3 (05:46→13:50)
[2022-04-11] MEDS: CARBOXYMETHYLCELLULOSE OPHTH DROPS EACHEYE SCH ×3 (05:48→21:33)
[2022-04-11] MEDS: HYDROCORTISONE SUCCINATE 100 MG/2 ML VIAL IVP SCH ×3 (05:49→21:33)
[2022-04-11] MEDS: PANTOPRAZOLE 40 MG TABLET PO SCH (05:49)
[2022-04-11 06:23] LABS: BASOPHILS % (AUTO) 0.7 %; HCT - HEMATOCRIT 20.8 % (42.0-52.0); LYMPHOCYTES % (AUTO) 11.1 %; MEAN CORPUSCULAR HEMOGLOBIN 32.4 pg (27.0-31.0); MEAN CORPUSCULAR HGB CONC 32.7 g/dL (32.0-36.0); MEAN PLATELET VOLUME 10.3 fL (7.4-11.4); NEUTROPHILS % (AUTO) 72.3 %; PLT - PLATELET COUNT 52 10^3/uL (130-450); RED CELL DISTRIBUTION WIDTH 21.9 % (12.0-15.0); WHITE BLOOD COUNT 2.7 x10^3/uL (4.8-10.8)
[2022-04-11 06:28] LABS: ABNORMAL LYMPHS % (MANUAL) 0 %; HGB - HEMOGLOBIN 6.8 g/dL (14.0-18.0)
[2022-04-11 06:40] LABS: ALBUMIN 1.8 g/dL (3.2-5.5); ALBUMIN/GLOBULIN RATIO 0.9 (1.0-2.2); BILIRUBIN,TOTAL 0.6 mg/dL (0.2-1.0); CALCIUM 7.2 mg/dL (8.5-10.3); CREATININE 0.7 mg/dL (0.6-1.2); MAGNESIUM 2.2 mg/dL (1.7-2.8); PHOSPHORUS 2.4 mg/dL (2.5-4.6); POTASSIUM 3.8 mmol/L (3.5-5.0); TOTAL PROTEIN 3.9 g/dL (6.7-8.2)
[2022-04-11 06:46] LABS: BAND NEUTROPHILS % (MANUAL) 5 %; LYMPHOCYTES # (MANUAL) 0.2 10^3/uL (1.5-3.5); LYMPHOCYTES % (MANUAL) 8 %; METAMYELOCYTES % (MANUAL) 1 %; MONOCYTES # (MANUAL) 0.2 10^3/uL (0.0-1.0); NEUTROPHILS # (MANUAL) 2.2 10^3/uL (1.5-6.6)
[2022-04-11 06:47] LABS: DIFFERENTIAL COMMENT MANUAL DIFFERENTIAL; PLATELET ESTIMATE, MANUAL DECREASED (<130,000) (NORMAL); PLATELET MORPHOLOGY NORMAL APPEARANCE (NORMAL); WBC MORPHOLOGY (MULTIPLE) NORMAL APPEARANCE (NORMAL)
[2022-04-11] MEDS: AMIODARONE 200 MG TABLET PO SCH (09:14)
[2022-04-11] MEDS: VANCOMYCIN 125 MG CAPSULE PO SCH ×4 (09:15→21:33)
[2022-04-11] MEDS: CHOLECALCIFEROL 25 MCG TABLET PO SCH (09:15)
[2022-04-11] MEDS: TAMSULOSIN 0.4 MG CAPSULE PO SCH (09:15)
[2022-04-11] MEDS: CALCIUM CARB (OYSTER SHELL) 500 MG TABLET PO SCH (09:15)
[2022-04-11] MEDS: FLUTICASONE NASAL SPRAY NAS SCH (09:20)
[2022-04-11] MEDS: prednisoLONE 1% OPHTH DROPS 75 DROPS/5 ML BOTTLE LEFTEYE SCH (09:21)
[2022-04-11] MEDS: OFLOXACIN 0.3% OPHTH DROPS LEFTEYE SCH (09:21)
[2022-04-11] MEDS: COD LIVER OIL/ZINC OXIDE 113 GM TUBE TOP PRN ×2 (10:50→20:06)
[2022-04-11] MEDS: WITCH HAZEL/GLYCERIN 1 PAD TOP PRN ×2 (10:50→20:11)
[2022-04-11] MEDS: SODIUM CHLORIDE FLUSH 0.9% 10 ML SYRINGE IVP PRN ×2 (13:50→21:34)
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
[2022-04-11] MEDS: PPN (CLINIMIX E 4.25/5) 2,000 ML with MULTIVITAMIN 10 ML, TRACE ELEMENTS 1 ML IV SCH ×3 (19:57)
[2022-04-11] MEDS: FAT EMULSION 20% 250 ML IV SCH (20:01)
[2022-04-11] MEDS: ZINC OXIDE 20% OINT 30 GM TUBE TOP PRN (20:06)
[2022-04-11] MEDS: ATORVASTATIN 10 MG TABLET PO SCH (21:33)
[2022-04-12] MEDS: ACETAMINOPHEN 325 MG TABLET PO PRN ×4 (00:18→17:18)
[2022-04-12] MEDS: SODIUM CHLORIDE FLUSH 0.9% 10 ML SYRINGE IVP SCH ×3 (00:22→17:18)
[2022-04-12] MEDS: oxyCODONE 5 MG TABLET PO PRN ×2 (02:00→20:18)
[2022-04-12] MEDS: SODIUM CHLORIDE 0.9% 1,000 ML IV SCH ×4 (04:53→22:40)
[2022-04-12] MEDS: CARBOXYMETHYLCELLULOSE OPHTH DROPS EACHEYE SCH ×3 (04:57→21:22)
[2022-04-12] MEDS: HYDROCORTISONE SUCCINATE 100 MG/2 ML VIAL IVP SCH ×3 (04:57→21:23)
[2022-04-12] MEDS: PANTOPRAZOLE 40 MG TABLET PO SCH (04:57)
[2022-04-12 06:15] LABS: BASOPHILS % (AUTO) 0.7 %; HCT - HEMATOCRIT 20.7 % (42.0-52.0); LYMPHOCYTES % (AUTO) 9.7 %; MEAN CORPUSCULAR HEMOGLOBIN 33.2 pg (27.0-31.0); MEAN CORPUSCULAR HGB CONC 33.3 g/dL (32.0-36.0); MEAN CORPUSCULAR VOLUME 99.5 fL (80.0-94.0); MEAN PLATELET VOLUME 10.4 fL (7.4-11.4); MONOCYTES % (AUTO) 7.9 %; NEUTROPHILS % (AUTO) 75.5 %; PLT - PLATELET COUNT 40 10^3/uL (130-450); RED BLOOD COUNT 2.08 10^6/uL (4.70-6.10); RED CELL DISTRIBUTION WIDTH 21.3 % (12.0-15.0); WHITE BLOOD COUNT 2.9 x10^3/uL (4.8-10.8)
[2022-04-12 06:18] LABS: HGB - HEMOGLOBIN 6.9 g/dL (14.0-18.0)
[2022-04-12 06:19] LABS: ABNORMAL LYMPHS % (MANUAL) 0 %
[2022-04-12 06:24] LABS: CALCIUM 7.1 mg/dL (8.5-10.3); CREATININE 0.7 mg/dL (0.6-1.2); POTASSIUM 3.9 mmol/L (3.5-5.0)
[2022-04-12 06:32] LABS: BAND NEUTROPHILS % (MANUAL) 3 %; LYMPHOCYTES # (MANUAL) 0.2 10^3/uL (1.5-3.5); LYMPHOCYTES % (MANUAL) 8 %; METAMYELOCYTES % (MANUAL) 2 %; MONOCYTES # (MANUAL) 0.1 10^3/uL (0.0-1.0); MYELOCYTES % (MANUAL) 1 %; NEUTROPHILS # (MANUAL) 2.5 10^3/uL (1.5-6.6); NUCLEATED RBC (MANUAL) 2 %
[2022-04-12 06:34] LABS: DIFFERENTIAL COMMENT MANUAL DIFFERENTIAL; PLATELET ESTIMATE, MANUAL DECREASED (<130,000) (NORMAL); PLATELET MORPHOLOGY NORMAL APPEARANCE (NORMAL); WBC MORPHOLOGY (MULTIPLE) NORMAL APPEARANCE (NORMAL)
[2022-04-12] MEDS: ZINC OXIDE 20% OINT 30 GM TUBE TOP PRN (09:10)
[2022-04-12] MEDS: CALCIUM CARB (OYSTER SHELL) 500 MG TABLET PO SCH (09:20)
[2022-04-12] MEDS: CHOLECALCIFEROL 25 MCG TABLET PO SCH (09:20)
[2022-04-12] MEDS: AMIODARONE 200 MG TABLET PO SCH (09:20)
[2022-04-12] MEDS: VANCOMYCIN 125 MG CAPSULE PO SCH ×4 (09:20→21:22)
[2022-04-12] MEDS: TAMSULOSIN 0.4 MG CAPSULE PO SCH (09:20)
[2022-04-12] MEDS: prednisoLONE 1% OPHTH DROPS 75 DROPS/5 ML BOTTLE LEFTEYE SCH (09:28)
[2022-04-12] MEDS: OFLOXACIN 0.3% OPHTH DROPS LEFTEYE SCH (09:28)
[2022-04-12] MEDS: FLUTICASONE NASAL SPRAY NAS SCH (09:28)
[2022-04-12] MEDS ORDERED: MINERAL OIL/PETROLAT OPHTH OINT EACHEYE PRN (09:34)
[2022-04-12] MEDS: COD LIVER OIL/ZINC OXIDE 113 GM TUBE TOP PRN ×2 (12:25→17:20)
[2022-04-12] MEDS: SODIUM CHLORIDE FLUSH 0.9% 10 ML SYRINGE IVP PRN ×2 (14:56→21:24)
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
[2022-04-12] MEDS: FAT EMULSION 20% 250 ML IV SCH (20:10)
[2022-04-12] MEDS: PPN (CLINIMIX E 4.25/5) 2,000 ML with MULTIVITAMIN 10 ML, TRACE ELEMENTS 1 ML IV SCH ×3 (20:10)
[2022-04-12] MEDS: ATORVASTATIN 10 MG TABLET PO SCH (20:18)
[2022-04-13] MEDS: SODIUM CHLORIDE FLUSH 0.9% 10 ML SYRINGE IVP SCH ×3 (00:35→17:25)
[2022-04-13] MEDS: oxyCODONE 5 MG TABLET PO PRN ×3 (00:46→21:21)
[2022-04-13] MEDS: ACETAMINOPHEN 325 MG TABLET PO PRN ×2 (05:11→19:30)
[2022-04-13] MEDS: PANTOPRAZOLE 40 MG TABLET PO SCH (05:11)
[2022-04-13] MEDS: HYDROCORTISONE SUCCINATE 100 MG/2 ML VIAL IVP SCH ×3 (05:12→21:22)
[2022-04-13] MEDS: CARBOXYMETHYLCELLULOSE OPHTH DROPS EACHEYE SCH ×3 (05:12→21:22)
[2022-04-13 05:48] LABS: BASOPHILS % (AUTO) 0.3 %; HCT - HEMATOCRIT 25.5 % (42.0-52.0); HGB - HEMOGLOBIN 8.5 g/dL (14.0-18.0); LYMPHOCYTES % (AUTO) 9.9 %; MEAN CORPUSCULAR HEMOGLOBIN 32.3 pg (27.0-31.0); MEAN CORPUSCULAR HGB CONC 33.3 g/dL (32.0-36.0); MEAN PLATELET VOLUME 11.3 fL (7.4-11.4); MONOCYTES % (AUTO) 5.2 %; NEUTROPHILS % (AUTO) 79.4 %; PLT - PLATELET COUNT 36 10^3/uL (130-450); RED BLOOD COUNT 2.63 10^6/uL (4.70-6.10); RED CELL DISTRIBUTION WIDTH 23.2 % (12.0-15.0); WHITE BLOOD COUNT 3.2 x10^3/uL (4.8-10.8)
[2022-04-13 05:56] LABS: ABNORMAL LYMPHS % (MANUAL) 0 %
[2022-04-13 05:57] LABS: CALCIUM 7.2 mg/dL (8.5-10.3); CREATININE 0.7 mg/dL (0.6-1.2)
[2022-04-13 06:12] LABS: BAND NEUTROPHILS % (MANUAL) 1 %; LYMPHOCYTES # (MANUAL) 0.3 10^3/uL (1.5-3.5); LYMPHOCYTES % (MANUAL) 9 %; METAMYELOCYTES % (MANUAL) 1 %; MONOCYTES # (MANUAL) 0.2 10^3/uL (0.0-1.0); NEUTROPHILS # (MANUAL) 2.7 10^3/uL (1.5-6.6); NUCLEATED RBC (MANUAL) 1 %
[2022-04-13 06:13] LABS: DIFFERENTIAL COMMENT MANUAL DIFFERENTIAL; PLATELET ESTIMATE, MANUAL DECREASED (<130,000) (NORMAL); PLATELET MORPHOLOGY NORMAL APPEARANCE (NORMAL); WBC MORPHOLOGY (MULTIPLE) NORMAL APPEARANCE (NORMAL)
[2022-04-13] MEDS: CHOLECALCIFEROL 25 MCG TABLET PO SCH (09:03)
[2022-04-13] MEDS: CALCIUM CARB (OYSTER SHELL) 500 MG TABLET PO SCH (09:03)
[2022-04-13] MEDS: AMIODARONE 200 MG TABLET PO SCH (09:03)
[2022-04-13] MEDS: TAMSULOSIN 0.4 MG CAPSULE PO SCH (09:04)
[2022-04-13] MEDS: VANCOMYCIN 125 MG CAPSULE PO SCH ×4 (09:04→21:21)
[2022-04-13] MEDS: FLUTICASONE NASAL SPRAY NAS SCH (09:04)
[2022-04-13] MEDS: prednisoLONE 1% OPHTH DROPS 75 DROPS/5 ML BOTTLE LEFTEYE SCH (09:05)
[2022-04-13] MEDS: OFLOXACIN 0.3% OPHTH DROPS LEFTEYE SCH (09:05)
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
[2022-04-13] MEDS: SODIUM CHLORIDE 0.9% 1,000 ML IV SCH (17:11)
[2022-04-13] MEDS ORDERED: PPN (CLINIMIX 4.25/5) 2,000 ML with MULTIVITAMIN 10 ML, TRACE ELEMENTS 1 ML, SODIUM CHL... IV SCH ×8 (19:00)
[2022-04-13] MEDS: FAT EMULSION 20% 250 ML IV SCH (19:11)
[2022-04-13] MEDS: ATORVASTATIN 10 MG TABLET PO SCH (21:21)
[2022-04-14] MEDS: SODIUM CHLORIDE FLUSH 0.9% 10 ML SYRINGE IVP SCH ×3 (01:01→17:23)
[2022-04-14] MEDS: oxyCODONE 5 MG TABLET PO PRN ×4 (03:05→22:07)
[2022-04-14] MEDS: COD LIVER OIL/ZINC OXIDE 113 GM TUBE TOP PRN ×2 (03:07→21:45)
[2022-04-14] MEDS: PANTOPRAZOLE 40 MG TABLET PO SCH (06:32)
[2022-04-14] MEDS: HYDROCORTISONE SUCCINATE 100 MG/2 ML VIAL IVP SCH ×3 (06:33→21:42)
[2022-04-14] MEDS: CARBOXYMETHYLCELLULOSE OPHTH DROPS EACHEYE SCH ×3 (07:37→21:46)
[2022-04-14] MEDS: AMIODARONE 200 MG TABLET PO SCH (09:28)
[2022-04-14] MEDS: FLUTICASONE NASAL SPRAY NAS SCH (09:29)
[2022-04-14] MEDS: prednisoLONE 1% OPHTH DROPS 75 DROPS/5 ML BOTTLE LEFTEYE SCH (09:29)
[2022-04-14] MEDS: CALCIUM CARB (OYSTER SHELL) 500 MG TABLET PO SCH (09:29)
[2022-04-14] MEDS: CHOLECALCIFEROL 25 MCG TABLET PO SCH (09:29)
[2022-04-14] MEDS: VANCOMYCIN 125 MG CAPSULE PO SCH ×4 (09:30→21:45)
[2022-04-14] MEDS: OFLOXACIN 0.3% OPHTH DROPS LEFTEYE SCH (09:30)
[2022-04-14] MEDS: TAMSULOSIN 0.4 MG CAPSULE PO SCH (09:30)
[2022-04-14 10:56] LABS: BASOPHILS % (AUTO) 0.2 %; EOSINOPHILS % (AUTO) 0.2 %; HCT - HEMATOCRIT 27.1 % (42.0-52.0); HGB - HEMOGLOBIN 8.9 g/dL (14.0-18.0); LYMPHOCYTES # (AUTO) 0.2 10^3/uL (1.5-3.5); LYMPHOCYTES % (AUTO) 4.4 %; MEAN CORPUSCULAR HEMOGLOBIN 32.1 pg (27.0-31.0); MEAN CORPUSCULAR HGB CONC 32.8 g/dL (32.0-36.0); MEAN CORPUSCULAR VOLUME 97.8 fL (80.0-94.0); MEAN PLATELET VOLUME 11.3 fL (7.4-11.4); MONOCYTES # (AUTO) 0.2 10^3/uL (0.0-1.0); MONOCYTES % (AUTO) 3.9 %; NEUTROPHILS # (AUTO) 3.7 10^3/uL (1.5-6.6); NEUTROPHILS % (AUTO) 90.3 %; RED BLOOD COUNT 2.77 10^6/uL (4.70-6.10); RED CELL DISTRIBUTION WIDTH 22.7 % (12.0-15.0); WHITE BLOOD COUNT 4.1 x10^3/uL (4.8-10.8)
[2022-04-14 10:58] LABS: PLT - PLATELET COUNT 23 10^3/uL (130-450)
[2022-04-14 11:02] LABS: CALCIUM 6.7 mg/dL (8.5-10.3); CREATININE 0.6 mg/dL (0.6-1.2); POTASSIUM 3.8 mmol/L (3.5-5.0)
[2022-04-14] MEDS: SODIUM CHLORIDE FLUSH 0.9% 10 ML SYRINGE IVP PRN ×2 (11:26→21:42)
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
[2022-04-14 13:50] LABS: MAGNESIUM 2.3 mg/dL (1.7-2.8); PHOSPHORUS 4.1 mg/dL (2.5-4.6)
[2022-04-14] MEDS: ACETAMINOPHEN 325 MG TABLET PO PRN ×2 (15:49→22:07)
[2022-04-14] MEDS: SODIUM CHLORIDE 0.9% 1,000 ML IV SCH ×4 (17:21→18:14)
[2022-04-14] MEDS: HYDROmorphone 1 MG/ML CARPUJECT IVP PRN ×2 (17:22→20:07)
[2022-04-14] MEDS: TPN (CLINIMIX E 5/15) 2,000 ML with MULTIVITAMIN 10 ML, TRACE ELEMENTS 1 ML IV SCH ×3 (20:00)
[2022-04-14] MEDS: FAT EMULSION 20% 250 ML IV SCH (20:01)
[2022-04-14] MEDS: ATORVASTATIN 10 MG TABLET PO SCH (21:45)
[2022-04-15] MEDS: SODIUM CHLORIDE FLUSH 0.9% 10 ML SYRINGE IVP SCH ×4 (00:39→20:15)
[2022-04-15] MEDS: HYDROmorphone 1 MG/ML CARPUJECT IVP PRN ×5 (01:11→11:11)
[2022-04-15] MEDS: SODIUM CHLORIDE 0.9% 1,000 ML IV SCH ×3 (01:18→21:09)
[2022-04-15] MEDS: oxyCODONE 5 MG TABLET PO PRN ×3 (03:52→22:09)
[2022-04-15] MEDS: SODIUM CHLORIDE FLUSH 0.9% 10 ML SYRINGE IVP PRN (05:19)
[2022-04-15 05:39] LABS: BASOPHILS % (AUTO) 0.5 %; HCT - HEMATOCRIT 21.6 % (42.0-52.0); LYMPHOCYTES % (AUTO) 7.8 %; MEAN CORPUSCULAR HEMOGLOBIN 31.7 pg (27.0-31.0); MEAN CORPUSCULAR HGB CONC 31.9 g/dL (32.0-36.0); MEAN CORPUSCULAR VOLUME 99.1 fL (80.0-94.0); MEAN PLATELET VOLUME 10.3 fL (7.4-11.4); MONOCYTES % (AUTO) 4.4 %; NEUTROPHILS % (AUTO) 86.3 %; PLT - PLATELET COUNT 39 10^3/uL (130-450); RED BLOOD COUNT 2.18 10^6/uL (4.70-6.10); RED CELL DISTRIBUTION WIDTH 22.5 % (12.0-15.0)
[2022-04-15 05:52] LABS: CALCIUM 6.9 mg/dL (8.5-10.3); CREATININE 0.6 mg/dL (0.6-1.2); MAGNESIUM 2.5 mg/dL (1.7-2.8); PHOSPHORUS 3.4 mg/dL (2.5-4.6)
[2022-04-15 05:55] LABS: HGB - HEMOGLOBIN 6.9 g/dL (14.0-18.0)
[2022-04-15 05:56] LABS: ABNORMAL LYMPHS % (MANUAL) 0 %
[2022-04-15 06:09] LABS: BAND NEUTROPHILS % (MANUAL) 1 %; LYMPHOCYTES # (MANUAL) 0.1 10^3/uL (1.5-3.5); LYMPHOCYTES % (MANUAL) 6 %; MONOCYTES # (MANUAL) 0.1 10^3/uL (0.0-1.0); NEUTROPHILS # (MANUAL) 1.8 10^3/uL (1.5-6.6)
[2022-04-15 06:10] LABS: DIFFERENTIAL COMMENT MANUAL DIFFERENTIAL; PLATELET ESTIMATE, MANUAL DECREASED (<130,000) (NORMAL)
[2022-04-15] MEDS: CARBOXYMETHYLCELLULOSE OPHTH DROPS EACHEYE SCH ×3 (07:08→21:08)
[2022-04-15] MEDS: HYDROCORTISONE SUCCINATE 100 MG/2 ML VIAL IVP SCH ×2 (07:08→14:42)
[2022-04-15] MEDS: PANTOPRAZOLE 40 MG TABLET PO SCH (08:24)
[2022-04-15] MEDS: CALCIUM CARBONATE CHEW 500 MG TABLET PO PRN ×2 (08:49→21:08)
[2022-04-15] MEDS: CHOLECALCIFEROL 25 MCG TABLET PO SCH (08:49)
[2022-04-15] MEDS: AMIODARONE 200 MG TABLET PO SCH (08:49)
[2022-04-15] MEDS: TAMSULOSIN 0.4 MG CAPSULE PO SCH (08:50)
[2022-04-15] MEDS: CALCIUM CARB (OYSTER SHELL) 500 MG TABLET PO SCH (08:50)
[2022-04-15] MEDS: VANCOMYCIN 125 MG CAPSULE PO SCH (08:51)
[2022-04-15] MEDS: prednisoLONE 1% OPHTH DROPS 75 DROPS/5 ML BOTTLE LEFTEYE SCH (08:53)
[2022-04-15] MEDS: OFLOXACIN 0.3% OPHTH DROPS LEFTEYE SCH (08:53)
[2022-04-15] MEDS: FLUTICASONE NASAL SPRAY NAS SCH (08:54)
[2022-04-15] MEDS: INSULIN LISPRO 300 UNIT/3 ML PEN SUBQ SCH ×4 (08:55→21:09)
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
[2022-04-15] MEDS: LIDOCAINE OINTMENT 5% 35.44 GM TUBE TOP SCH ×3 (12:49→21:08)
[2022-04-15] MEDS: HYDROmorphone 2 MG TABLET PO PRN ×3 (12:50→23:54)
[2022-04-15] MEDS: ACETAMINOPHEN 325 MG TABLET PO PRN ×2 (15:57→20:14)
[2022-04-15] MEDS ORDERED: INSULIN LISPRO 300 UNIT/3 ML PEN SUBQ SCH (17:00)
[2022-04-15] MEDS: TPN (CLINIMIX E 5/15) 2,000 ML with MULTIVITAMIN 10 ML, TRACE ELEMENTS 1 ML IV SCH ×3 (20:12)
[2022-04-15] MEDS: FAT EMULSION 20% 250 ML IV SCH (20:12)
[2022-04-15] MEDS ORDERED: SODIUM CHLORIDE 0.9% 1,000 ML IV ONE (21:04)
[2022-04-15] MEDS: ATORVASTATIN 10 MG TABLET PO SCH (21:08)
[2022-04-15] MEDS: BUDESONIDE 3 MG CAPSULE PO SCH (21:08)
[2022-04-16] MEDS: SODIUM CHLORIDE FLUSH 0.9% 10 ML SYRINGE IVP SCH ×3 (01:28→16:55)
[2022-04-16] MEDS ORDERED: HYDROmorphone 0.5 MG/0.5 ML SYRINGE IVP STA (02:07)
[2022-04-16 05:27] LABS: CALCIUM 6.8 mg/dL (8.5-10.3); CREATININE 0.6 mg/dL (0.6-1.2); POTASSIUM 3.6 mmol/L (3.5-5.0)
[2022-04-16 05:35] LABS: EOSINOPHILS % (AUTO) 0.5 %; HCT - HEMATOCRIT 23.8 % (42.0-52.0); HGB - HEMOGLOBIN 7.9 g/dL (14.0-18.0); LYMPHOCYTES % (AUTO) 11.3 %; MEAN CORPUSCULAR HEMOGLOBIN 32.5 pg (27.0-31.0); MEAN CORPUSCULAR HGB CONC 33.2 g/dL (32.0-36.0); MEAN CORPUSCULAR VOLUME 97.9 fL (80.0-94.0); MONOCYTES % (AUTO) 5.9 %; NEUTROPHILS % (AUTO) 81.2 %; RED BLOOD COUNT 2.43 10^6/uL (4.70-6.10)
[2022-04-16 05:49] LABS: PLT - PLATELET COUNT 30 10^3/uL (130-450); WHITE BLOOD COUNT 1.9 x10^3/uL (4.8-10.8)
[2022-04-16 05:50] LABS: ABNORMAL LYMPHS % (MANUAL) 0 %
[2022-04-16] MEDS: CARBOXYMETHYLCELLULOSE OPHTH DROPS EACHEYE SCH ×3 (05:57→20:37)
[2022-04-16] MEDS: ACETAMINOPHEN 325 MG TABLET PO PRN ×2 (05:57→16:55)
[2022-04-16] MEDS: oxyCODONE 5 MG TABLET PO PRN ×3 (05:57→17:57)
[2022-04-16 06:41] LABS: BAND NEUTROPHILS % (MANUAL) 5 %; LYMPHOCYTES # (MANUAL) 0.2 10^3/uL (1.5-3.5); LYMPHOCYTES % (MANUAL) 11 %; MONOCYTES # (MANUAL) 0.1 10^3/uL (0.0-1.0); NEUTROPHILS # (MANUAL) 1.5 10^3/uL (1.5-6.6); NUCLEATED RBC (MANUAL) 1 %
[2022-04-16 06:42] LABS: DIFFERENTIAL COMMENT MANUAL DIFFERENTIAL; PLATELET ESTIMATE, MANUAL DECREASED (<130,000) (NORMAL)
[2022-04-16] MEDS: PANTOPRAZOLE 40 MG TABLET PO SCH (06:50)
[2022-04-16] MEDS: HYDROmorphone 2 MG TABLET PO PRN ×3 (06:52→19:50)
[2022-04-16] MEDS ORDERED: predniSONE 20 MG TABLET PO SCH (08:00)
[2022-04-16] MEDS: INSULIN LISPRO 300 UNIT/3 ML PEN SUBQ SCH ×5 (09:21→20:37)
[2022-04-16] MEDS: predniSONE 20 MG TABLET PO SCH (09:22)
[2022-04-16] MEDS: CALCIUM CARB (OYSTER SHELL) 500 MG TABLET PO SCH (09:22)
[2022-04-16] MEDS: CHOLECALCIFEROL 25 MCG TABLET PO SCH (09:22)
[2022-04-16] MEDS: AMIODARONE 200 MG TABLET PO SCH (09:23)
[2022-04-16] MEDS: TAMSULOSIN 0.4 MG CAPSULE PO SCH (09:23)
[2022-04-16] MEDS: LIDOCAINE OINTMENT 5% 35.44 GM TUBE TOP SCH ×4 (09:23→20:36)
[2022-04-16] MEDS: BUDESONIDE 3 MG CAPSULE PO SCH (09:23)
[2022-04-16] MEDS: FLUTICASONE NASAL SPRAY NAS SCH (09:24)
[2022-04-16] MEDS: prednisoLONE 1% OPHTH DROPS 75 DROPS/5 ML BOTTLE LEFTEYE SCH (09:24)
[2022-04-16] MEDS: OFLOXACIN 0.3% OPHTH DROPS LEFTEYE SCH (09:24)
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
[2022-04-16] MEDS ORDERED: iohexoL-300 100 ML VIAL ONE (11:56)
[2022-04-16] MEDS ORDERED: DIATRIZOATE MEGLU/DIATRIZO SOD 30 ML BOTTLE PO ONE ×2 (11:56→16:11)
[2022-04-16] MEDS: COD LIVER OIL/ZINC OXIDE 113 GM TUBE TOP PRN ×2 (14:00→16:54)
[2022-04-16] MEDS ORDERED: iohexoL-300 100 ML VIAL IVP ONE (16:10)
--- NOTE | 2022-04-16 16:41 | CT Report ---
PROCEDURE: CT pelvis with IV and rectal contrast INDICATIONS: rectal pain and brbpr CONTRAST: 100ml omni 300 TECHNIQUE: After the administration of IV and rectal contrast, 5 mm thick sections acquired from the iliac crest s to the symphysis. 5 mm thick coronal and sagittal reformats were acquired. For radiation dose red uction, the following was used: automated exposure control, adjustment of mA and/or kV according to patient size. COMPARISON: None FINDINGS: Image quality: Excellent. Peritoneum and bowel: Bowel wall thickening and multiple diverticuli noted associated with the sigmoi d colon. Genitourinary: Juarez catheter in the bladder. Bladder is decompressed. Partially imaged kidneys show left renal cyst. Nodes and vessels: No iliac, pelvic, or inguinal adenopathy. Iliac vessels demonstrate normal size and enhancement. Musculoskeletal: Visualized osseous structures unremarkable. There is diffuse subcutaneous edema note d. Bilateral L5 pars defects and grade 1 anterior spondylolisthesis Miscellaneous: No inguinal hernias. Mild to moderate ascites noted. IMPRESSION: Sigmoid diffuse diverticulosis with wall thickening present. Focal inflammatory in the proximal sigmo id consistent with focal diverticulitis. Mild to moderate free fluid in the pelvis without organized abscess or free air in the pelvis. Incidental grade 1 isthmic spondylolisthesis at L5-S1 Reviewed by: Carlin Ferrer MD on 04/16/2022 3:40 PM [place] Approved by: Carlin Ferrer MD on 04/16/2022 3:40 PM AKST Station ID: [id number]
[2022-04-16] MEDS: TPN (CLINIMIX E 5/15) 2,000 ML with MULTIVITAMIN 10 ML, TRACE ELEMENTS 1 ML IV SCH ×3 (19:41)
[2022-04-16] MEDS: FAT EMULSION 20% 250 ML IV SCH (19:41)
[2022-04-16 20:35] LABS: HCT - HEMATOCRIT 24.1 % (42.0-52.0); HGB - HEMOGLOBIN 7.8 g/dL (14.0-18.0)
[2022-04-16] MEDS: ATORVASTATIN 10 MG TABLET PO SCH (20:36)
[2022-04-16] MEDS: PIPERACILLIN/TAZOBACTAM 3.375 GM in SODIUM CHLORIDE 0.9% MINIBAG 100 ML IV SCH (21:06)
[2022-04-17 08:09] LABS: ALBUMIN 1.9 g/dL (3.2-5.5); BILIRUBIN,TOTAL 0.6 mg/dL (0.2-1.0); CALCIUM 6.7 mg/dL (8.5-10.3); CREATININE 0.7 mg/dL (0.6-1.2); POTASSIUM 3.6 mmol/L (3.5-5.0); TOTAL PROTEIN 3.9 g/dL (6.7-8.2)
[2022-04-17] MEDS: ACETAMINOPHEN 325 MG TABLET PO PRN ×2 (08:16→19:11)
[2022-04-17] MEDS: AMIODARONE 200 MG TABLET PO SCH (08:17)
[2022-04-17] MEDS: predniSONE 20 MG TABLET PO SCH (08:17)
[2022-04-17] MEDS: CALCIUM CARB (OYSTER SHELL) 500 MG TABLET PO SCH (08:17)
[2022-04-17] MEDS: CHOLECALCIFEROL 25 MCG TABLET PO SCH (08:18)
[2022-04-17] MEDS: LIDOCAINE OINTMENT 5% 35.44 GM TUBE TOP SCH ×4 (08:18→21:10)
[2022-04-17] MEDS: TAMSULOSIN 0.4 MG CAPSULE PO SCH (08:18)
[2022-04-17] MEDS: FLUTICASONE NASAL SPRAY NAS SCH (08:22)
[2022-04-17] MEDS: prednisoLONE 1% OPHTH DROPS 75 DROPS/5 ML BOTTLE LEFTEYE SCH (08:22)
[2022-04-17] MEDS: OFLOXACIN 0.3% OPHTH DROPS LEFTEYE SCH (08:22)
[2022-04-17] MEDS: ZINC OXIDE 20% OINT 30 GM TUBE TOP PRN (08:23)
[2022-04-17 10:15] LABS: EOSINOPHILS % (AUTO) 0.8 %; HCT - HEMATOCRIT 25.6 % (42.0-52.0); HGB - HEMOGLOBIN 8.5 g/dL (14.0-18.0); LYMPHOCYTES % (AUTO) 16.5 %; MEAN CORPUSCULAR HEMOGLOBIN 32.2 pg (27.0-31.0); MEAN CORPUSCULAR HGB CONC 33.2 g/dL (32.0-36.0); MEAN PLATELET VOLUME 10.1 fL (7.4-11.4); MONOCYTES % (AUTO) 10.2 %; NEUTROPHILS % (AUTO) 71.7 %; RED BLOOD COUNT 2.64 10^6/uL (4.70-6.10); RED CELL DISTRIBUTION WIDTH 21.4 % (12.0-15.0)
[2022-04-17 10:17] LABS: PLT - PLATELET COUNT 27 10^3/uL (130-450); WHITE BLOOD COUNT 1.3 x10^3/uL (4.8-10.8)
[2022-04-17 10:18] LABS: ABNORMAL LYMPHS % (MANUAL) 0 %
[2022-04-17 10:25] LABS: BAND NEUTROPHILS % (MANUAL) 14 %; LYMPHOCYTES # (MANUAL) 0.1 10^3/uL (1.5-3.5); LYMPHOCYTES % (MANUAL) 4 %; MONOCYTES # (MANUAL) 0.1 10^3/uL (0.0-1.0); NEUTROPHILS # (MANUAL) 1.1 10^3/uL (1.5-6.6); PLATELET ESTIMATE, MANUAL DECREASED (<130,000) (NORMAL)
[2022-04-17 10:26] LABS: DIFFERENTIAL COMMENT MANUAL DIFFERENTIAL
[2022-04-17] MEDS: PIPERACILLIN/TAZOBACTAM 3.375 GM in SODIUM CHLORIDE 0.9% MINIBAG 100 ML IV SCH ×3 (10:52→21:08)
[2022-04-17] MEDS: SODIUM CHLORIDE 0.9% 1,000 ML IV SCH (10:52)
[2022-04-17] MEDS: SODIUM CHLORIDE FLUSH 0.9% 10 ML SYRINGE IVP SCH ×3 (10:52→17:57)
[2022-04-17] MEDS: CARBOXYMETHYLCELLULOSE OPHTH DROPS EACHEYE SCH ×3 (10:53→21:21)
[2022-04-17] MEDS: INSULIN LISPRO 300 UNIT/3 ML PEN SUBQ SCH ×4 (10:53→21:09)
[2022-04-17] MEDS: PANTOPRAZOLE 40 MG TABLET PO SCH (10:53)
--- NOTE | 2022-04-17 11:56 | PROVIDER PROGRESS NOTE ---
Progress Note April 17, 2022 11:21 AM Blood and clots from his [place] have stopped. He continues to have bright red blood per rectum. He received a unit of blood in April 15, and on April 16 with his bleeding his hemoglobin was 7.9, 7.8, and this morning he is 8.5. Platelets were 30 yesterday and he received a platelet pheresis pack. Platelets are 27 today. His main complaint is rectal pain. I did offer him the lidocaine jelly but he says "not right now Active Medications Acetaminophen (Acetaminophen 325 Mg Tablet) 650 mg PO Q4HR PRN PRN Reason: Pain 1 to 4, or Fever Last Admin: 04/17/22 08:16 Dose: 650 mg Amiodarone HCl (Amiodarone 200 Mg Tablet) 100 mg PO DAILY PENDING SALE TO [facility] Last Admin: 04/17/22 08:17 Dose: 100 mg Atorvastatin Calcium (Atorvastatin 10 Mg Tablet) 10 mg PO 2100 PENDING SALE TO [facility] Last Admin: 04/16/22 20:36 Dose: 10 mg Calcium Carbonate/Glycine (Calcium Carb (Oyster Shell) 500 Mg Tablet) 500 mg PO 0900 PENDING SALE TO [facility] Last Admin: 04/17/22 08:17 Dose: 500 mg Calcium Carbonate/Glycine (Calcium Carbonate Chew 500 Mg Tablet) 500 mg PO TID PRN PRN Reason: INDIGESTION Last Admin: 04/15/22 21:08 Dose: 500 mg Carboxymethylcellulose (Carboxymethylcellulose Ophth Drops) 1 drops EACHEYE TID PENDING SALE TO [facility] Last Admin: 04/17/22 10:53 Dose: Not Given Cholecalciferol (Cholecalciferol 25 Mcg Tablet) 50 mcg PO DAILY PENDING SALE TO [facility] Last Admin: 04/17/22 08:18 Dose: 50 mcg Fluticasone Propionate (Fluticasone Nasal [place]) 1 sprays SHENA DAILY PENDING SALE TO [facility] Last Admin: 04/17/22 08:22 Dose: 1 spr Heparin Sodium (Beef Lung) (Heparin Flush 50 Units/5 Ml Syringe) 30 - 50 unit IVP PRN PRN PRN Reason: Port Protocol (<24 hours) Last Admin: 04/04/22 08:25 Dose: 50 unit Hydromorphone HCl (Hydromorphone 2 Mg Tablet) 2 mg PO Q6HR PRN PRN Reason: Severe Pain Last Admin: 04/16/22 19:50 Dose: 2 mg Fat Emulsion Intravenous (Intralipid 20%) 250 mls @ 21 mls/hr IV 1900 PENDING SALE TO [facility] Last Infusion: 04/17/22 08:30 Dose: Infused Multivitamins 10 ml/ TRACE ELEMENTS 1 ml/ Amino Ac/Electrol/Dextrose/Calcium 2,011 mls @ 83 mls/hr IV 1900 [id number]; Protocol Last Admin: 04/16/22 19:41 Dose: 83 mls/hr Sodium Chloride (Normal Saline 0.9%) 1,000 mls @ 30 mls/hr IV Q24H PENDING SALE TO [facility] Last Admin: 04/17/22 10:52 Dose: Not Given Piperacillin Sod/Tazobactam (Sod 3.375 gm/ Sodium Chloride) 100 mls @ 25 mls/hr IV Q8H PENDING SALE TO [facility] Last Admin: 04/17/22 10:52 Dose: Not Given Insulin Human Lispro (Insulin Lispro 300 Unit/3 Ml Pen) 1 - 9 unit SUBQ 0800,1200,1700,2100 PENDING SALE TO [facility]; Protocol Last Admin: 04/17/22 10:53 Dose: Not Given Lidocaine (Lidocaine Ointment 5% 35.44 Gm Tube) 1 applic TOP QID PENDING SALE TO [facility] Last Admin: 04/17/22 08:18 Dose: 1 applic Multi-Ingred Cream/Lotion/Oil/Oint (Mineral Oil/Petrolat Ophth Oint) 1 applic EACHEYE QPM PRN PRN Reason: Dry Eye Multi-Ingredient Ointment (Zinc Oxide 20% Oint 30 Gm Tube) 1 applic TOP PRN PRN PRN Reason: Skin Care Last Admin: 04/17/22 08:23 Dose: 1 applic Ofloxacin (Ofloxacin 0.3% Ophth Drops) 1 drops LEFTEYE DAILY PENDING SALE TO [facility] Last Admin: 04/17/22 08:22 Dose: 1 drops Ondansetron HCl (Ondansetron Odt 4 Mg Tablet) 4 mg TL Q6HR PRN PRN Reason: Nausea / Vomiting Ondansetron HCl (Ondansetron 4 Mg/2 Ml Vial) 4 mg IVP Q6HR PRN PRN Reason: Nausea / Vomiting Last Admin: 04/05/22 02:20 Dose: 4 mg Oxycodone HCl (Oxycodone 5 Mg Tablet) 5 mg PO Q6HR PRN PRN Reason: Pain 5 to 7 Last Admin: 04/16/22 17:57 Dose: 5 mg Pantoprazole Sodium (Pantoprazole 40 Mg Tablet) 40 mg PO QDAC PENDING SALE TO [facility] Last Admin: 04/17/22 10:53 Dose: Not Given Prednisolone (Prednisolone 1% Ophth Drops 75 Drops/5 Ml Bottle) 1 drops LEFTEYE DAILY PENDING SALE TO [facility] Last Admin: 04/17/22 08:22 Dose: 1 drops Prednisone (Prednisone 20 Mg Tablet) 10 mg PO DAILYWM PENDING SALE TO [facility] Last Admin: 04/17/22 08:17 Dose: 10 mg Sodium Chloride (Sodium Chloride Flush 0.9% 10 Ml Syringe) 10 ml IVP PRN PRN PRN Reason: NEEDED PER PROVIDER ORDERS Last Admin: 04/15/22 05:19 Dose: 40 ml Sodium Chloride (Sodium Chloride Flush 0.9% 10 Ml Syringe) 10 ml IVP 0100,0900,1700 PENDING SALE TO [facility] Last Admin: 04/17/22 10:54 Dose: Not Given Tamsulosin HCl (Tamsulosin 0.4 Mg Capsule) 0.4 mg PO DAILY PENDING SALE TO [facility] Last Admin: 04/17/22 08:18 Dose: 0.4 mg Witch Kasey/Glycerin (Witch Kasey/Glycerin 1 Pad) 1 pad TOP PRN PRN PRN Reason: ITCHING Last Admin: 04/11/22 20:11 Dose: 1 pad Zinc Oxide (Cod Liver Oil/Zinc Oxide 113 Gm Tube) 113 gm TOP PRN PRN PRN Reason: Skin Care Last Admin: 04/16/22 16:54 Dose: 1 applic home meds: Rosuvastatin Calcium [Crestor] 10 mg PO DAILY 03/30/21 Tamsulosin HCl [Flomax] 0.4 mg PO DAILY 03/30/21 predniSONE [Deltasone] 8 mg PO DAILY 03/31/21 Calcium Carbonate/Vitamin D3 [Calcium 600-Vit D3 200 Tablet] 1 each PO DAILY 06/15/21 Metoprolol Succinate 100 mg PO DAILY 06/24/21 Apixaban [Eliquis] 2.5 mg PO BID 11/09/21 Amiodarone [Pacerone] 200 mg PO DAILY 04/02/22 Ofloxacin 0.3% Ophth Drops [Ocuflox 0.3% Ophth Drops] 1 drops LEFTEYE DAILY 04/02/22 prednisoLONE 1% OPHTH DROPS [Pred Forte 1% Ophth Drops] 1 drops LEFTEYE DAILY 04/02/22 Exam: Temperature 37.5, heart rate 113, blood pressure 115/62, respiratory rate 18, 93% on room air 5 foot 7 inches tall, 86.5 kg Withdrawn, irritable elderly man. He is just frustrated and focused on his rectal pain and the fact that he is bleeding again. He is not wearing his eye patch today, left eye blindness and lid lowered. He refuses to get out of bed. Neck has shotty adenopathy but supple Lungs have coarse upper airway sounds but no respiratory distress. Regular rate and rhythm. Tachycardic this morning but on recheck back into the 70s. Abdomen is soft, nontender. I pressed pretty deeply because of the colitis that we saw on CT yesterday but he says "that is okay" and he says that he does not have much more pain than usual. Extremities are with anasarca I have not seen his decubitus for 2 days. He says he does not want me to pull back the covers or undress him. He is very cranky. He says he is too cold, too tired and says "come back later" Labs: White cell count is 1.3, hemoglobin 8.5, hematocrit 25.6, platelets 27 Sodium 134, potassium 3.6, BUN 24, creatinine 0.7. Of note the hyponatremia is slight and has been present since I started him on TPN. Total protein 3.9, albumin 1.9, and globulin is 2.0, prealbumin 21 Assessment/plan 1. Sigmoid diverticulitis identified is a new problem Hematochezia was his complaint on admission and is what brought him to the emergency room. What he thought was hematochezia, however, was really hemorrhagic cystitis with clots coming out of his bladder. He has been having rectal pain for days. I did a CT scan yesterday trying to make sure he did not have an abscess, perirectal or otherwise, that I was missing. CT scan shows focal diverticulitis. In the afternoon of April 16, he developed significant bright red blood per rectum. It was no longer the reddish jellylike consistency but clots. So I think his bright red blood per rectum/hematochezia is from that. His hemoglobin is holding stable. Platelets are not. Plan: Budesonide has been requested by one of the bone marrow team physicians. In view of the fact that he now had focal diverticulitis, I stopped the budesonide. I have started him on single agent Zosyn. 2. Anemia. At this point I believe he has bone marrow suppression, but he has active bleeding, if not from his bladder, then from his rectum. So I will follow carefully to make sure I do not need to transfuse more packed cells. 3. C. difficile colitis. Diarrhea 4 days before admission. Positive for C. difficile here on April 05. He completed 11 days of oral vancomycin on April 15. I asked for repeat C. difficile toxin April 15 and I still do not have a report so I will check with the lab. The repeat C. difficile toxin was requested by the bone marrow transplant team. 4. 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 Ortiz ([facility]) attributes his pancytopenia to residual effect of his bone marrow transplant from a year and a half ago. After multiple discussions about his management and the causes of his pancytopenia, she finally agreed that he most likely needs a higher level of care after one of my discussions with her on April 11. I have been trying to get him to [facility] and . has excepted him with the accepting MD being Brandin Brooks MD and we have been waiting for a bed. At this point in time Dr. Ortiz states his baseline white cell count has been 1.7-2. That his new baseline platelet count is being 38-50. I am transfusing him whenever he drops below those numbers with regards to platelets. And when he drops below 7 on his hemoglobin. If he is bleeding, my tendency to transfuse is at a lower threshold. As of today he is received 5 units of packed red cells. 1 FFP. 1 platelets treated with psoralen, and 4 irradiated platelet pheresis packs. 5 sacral decubitus ulcer. Present on admission, photos present in chart. It went from a fairly large right buttock pressure ulcer to the skin finally peeling off and is a stage II. He has been seen by general surgery who was worried about a perirectal lesion. Currently getting traditional wound care. Desitin, offloading. Were trying to improve his nutrition with PPN that started April 08 and now TPN because he ran out of premixed Clinimix. TPN started April 14. 6. Severe protein calorie malnutrition. Being addressed with PPN and now TPN. Causing some hyponatremia. Not severe. Not enough to change formula 8. Chronic diastolic heart failure. Echo done December 10, 2021. No new echo during the stay. He is developing anasarca from #6. So far no worsening signs and symptoms of heart failure. I hesitate to give him Lasix because I do not want intravascularly deplete him at this time because of #9. 9. Orthostatic hypotension. Blood pressures have been soft this entire admission. We then presumed he may have steroid deficiency with addisonian crisis and put him on hydrocortisone as well as 500 cc boluses of normal saline. We also assumed that he was intravascularly depleted with his anemia and pa ncytopenia. He was also most likely dehydrated and malnourished. We were also trying to treat his paroxysmal A. fib with his beta-samuel. I finally just stopped that. The hydrocortisone was stopped April 15 and he is now on regular prednisone 10 mg a day which is similar to what he came in on. By April 08 his blood pressure seem to have normalized. 120/61. 118/58. 121/67. 110/58. And this morning he is 115/62. 10. Paroxysmal A. fib. Emergency room EKG showed him to be in sinus rhythm. He was on metoprolol extended release, 1 tablet daily, as well as amiodarone 200 mg daily. These are his home medications. We struggled to keep on giving him these drugs and had parameters. I finally just stopped the metoprolol and is only on amiodarone. With no rate lowering drugs other than the amiodarone, his pulse has been stable anywhere from 60s to 90s. This morning he is 113. He is usually on Eliquis at home. Because of his pancytopenia, hemorrhagic cystitis, and anemia we have been withholding his Eliquis. At 1 point we did resume the Eliquis but he had hemorrhagic cystitis again so we have just held it indefinitely. He is on heparin flushes. Not even on enoxaparin. 11. History of DVT. PE. Apixaban has been stopped indefinitely. We did try and resume it but bleeding resumed with it as well. He is on SCDs. If he can get a higher level of care I do not know if he is a candidate for Goran filter. 12. Chronic kidney disease. Creatinine is usually up to 1.7. He has been 0.6, 0.7 for a few days now. This may be reflection of his lack of muscle mass and malnutrition. We are continuing to monitor on a daily basis because of his TPN. 13. Hypokalemia. Resolved after replacement. 14. Intermittent confusion. That is resolved. 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 That he will never leave here. Intermittently tearful, intermittently irritable. 15. COVID-positive status. We tested him in anticipation of transfer. He was COVID-negative on admission. He has had no symptoms of runny nose, sore throat, cough, increasing oxygen need. He did have COVID in February. We think is a residual positive PCR from that. 16. Anal lesion. We saw this when we were trying to take care of him for his rectal bleeding and pain. Biopsy done and it is not squamous cell cancer. He has significant rectal pain and I have offered lidocaine ointment as of April 16. Patient is having none of it today.
[2022-04-17] MEDS: oxyCODONE 5 MG TABLET PO PRN (19:11)
[2022-04-17] MEDS: FAT EMULSION 20% 250 ML IV SCH (20:02)
[2022-04-17] MEDS: TPN (CLINIMIX E 5/15) 2,000 ML with MULTIVITAMIN 10 ML, TRACE ELEMENTS 1 ML IV SCH ×3 (20:02)
[2022-04-17] MEDS: ATORVASTATIN 10 MG TABLET PO SCH (21:08)
[2022-04-17] MEDS: SODIUM CHLORIDE FLUSH 0.9% 10 ML SYRINGE IVP PRN (21:12)
[2022-04-17] MEDS: COD LIVER OIL/ZINC OXIDE 113 GM TUBE TOP PRN (21:23)
[2022-04-18] MEDS: HYDROmorphone 2 MG TABLET PO PRN ×4 (00:04→20:30)
[2022-04-18] MEDS: SODIUM CHLORIDE FLUSH 0.9% 10 ML SYRINGE IVP SCH ×3 (02:48→16:06)
[2022-04-18] MEDS: PIPERACILLIN/TAZOBACTAM 3.375 GM in SODIUM CHLORIDE 0.9% MINIBAG 100 ML IV SCH ×4 (03:00→20:30)
[2022-04-18] MEDS: oxyCODONE 5 MG TABLET PO PRN ×3 (04:24→18:01)
[2022-04-18] MEDS: COD LIVER OIL/ZINC OXIDE 113 GM TUBE TOP PRN (04:30)
[2022-04-18] MEDS: CARBOXYMETHYLCELLULOSE OPHTH DROPS EACHEYE SCH ×3 (06:58→23:20)
[2022-04-18] MEDS: PANTOPRAZOLE 40 MG TABLET PO SCH (06:58)
[2022-04-18 07:19] LABS: CALCIUM 6.8 mg/dL (8.5-10.3); CREATININE 0.7 mg/dL (0.6-1.2); POTASSIUM 3.2 mmol/L (3.5-5.0)
[2022-04-18 07:29] LABS: HCT - HEMATOCRIT 22.6 % (42.0-52.0); HGB - HEMOGLOBIN 7.5 g/dL (14.0-18.0); LYMPHOCYTES % (AUTO) 20.8 %; MEAN CORPUSCULAR HEMOGLOBIN 32.5 pg (27.0-31.0); MEAN CORPUSCULAR HGB CONC 33.2 g/dL (32.0-36.0); MEAN CORPUSCULAR VOLUME 97.8 fL (80.0-94.0); MEAN PLATELET VOLUME 10.3 fL (7.4-11.4); MONOCYTES % (AUTO) 13.9 %; NEUTROPHILS % (AUTO) 60.3 %; PLT - PLATELET COUNT 50 10^3/uL (130-450); RED BLOOD COUNT 2.31 10^6/uL (4.70-6.10)
[2022-04-18 07:38] LABS: ABNORMAL LYMPHS % (MANUAL) 0 %
[2022-04-18 08:03] LABS: BAND NEUTROPHILS % (MANUAL) 26 %; LYMPHOCYTES # (MANUAL) 0.1 10^3/uL (1.5-3.5); LYMPHOCYTES % (MANUAL) 10 %; MONOCYTES # (MANUAL) 0.1 10^3/uL (0.0-1.0); NEUTROPHILS # (MANUAL) 0.7 10^3/uL (1.5-6.6); REACTIVE LYMPHS % (MANUAL) 4 %
[2022-04-18 08:04] LABS: PLATELET ESTIMATE, MANUAL DECREASED (<130,000) (NORMAL); RBC MORPHOLOGY (MULTIPLE) 1+ ANISOCYTOSIS (NORMAL); WBC MORPHOLOGY (MULTIPLE) 1+ DOHLE BODIES (NORMAL)
[2022-04-18 08:05] LABS: DIFFERENTIAL COMMENT MANUAL DIFFERENTIAL
[2022-04-18] MEDS ORDERED: POTASSIUM CHLORIDE 10 MEQ CAPSULE PO ONE (08:22)
[2022-04-18] MEDS: INSULIN LISPRO 300 UNIT/3 ML PEN SUBQ SCH ×4 (09:35→20:33)
[2022-04-18] MEDS: LIDOCAINE OINTMENT 5% 35.44 GM TUBE TOP SCH ×4 (09:36→20:31)
[2022-04-18] MEDS: CALCIUM CARB (OYSTER SHELL) 500 MG TABLET PO SCH (09:36)
[2022-04-18] MEDS: CHOLECALCIFEROL 25 MCG TABLET PO SCH (09:37)
[2022-04-18] MEDS: AMIODARONE 200 MG TABLET PO SCH (09:37)
[2022-04-18] MEDS: ACETAMINOPHEN 325 MG TABLET PO PRN ×4 (09:38→23:20)
[2022-04-18] MEDS: TAMSULOSIN 0.4 MG CAPSULE PO SCH (09:38)
[2022-04-18] MEDS: OFLOXACIN 0.3% OPHTH DROPS LEFTEYE SCH (09:39)
[2022-04-18] MEDS: prednisoLONE 1% OPHTH DROPS 75 DROPS/5 ML BOTTLE LEFTEYE SCH (09:40)
[2022-04-18] MEDS: FLUTICASONE NASAL SPRAY NAS SCH (09:40)
[2022-04-18] MEDS: predniSONE 20 MG TABLET PO SCH (09:44)
[2022-04-18] MEDS: ZINC OXIDE 20% OINT 30 GM TUBE TOP PRN (13:32)
[2022-04-18] MEDS: SODIUM CHLORIDE 0.9% 1,000 ML IV SCH (17:28)
[2022-04-18] MEDS: TPN (CLINIMIX E 5/15) 2,000 ML with MULTIVITAMIN 10 ML, TRACE ELEMENTS 1 ML IV SCH ×3 (18:34)
[2022-04-18] MEDS: FAT EMULSION 20% 250 ML IV SCH (18:34)
--- NOTE | 2022-04-18 19:25 | PROVIDER PROGRESS NOTE ---
Progress Note April 18, 2022 7:18 PM I have called [facility] twice today. There is still no bed availability even though they said he was next in line. The patient is anxious, tearful. Angry at times. Understandably so. Continues to have bloody stool. No abdominal pain. There are no fevers or chills. Medications from yesterday are unchanged On examination temperature is 37.0. Heart rate 76. Blood pressure 116/67. Respirations 18. 96% on room air. 88 kg. Depressed elderly gentleman, eye patch on the left eye, hat back on to prevent coldness Shotty neck adenopathy but supple Coarse upper airway sounds but no crackles rhonchi wheezing or respiratory distress Regular rate and rhythm Abdomen is soft, and in spite of the diverticulitis there is no tenderness or rebound. Quiet bowel sounds. Anasarca is getting worse. Sodium 135. Potassium 3.2. BUN 21, creatinine 0.7. White cell count down to 1.0. Hemoglobin 7.5. Hematocrit 22.6. Platelets 50 Assessment/plan 1. Sigmoid diverticulitis. Presented as hematochezia on admission. Had C. difficile colitis. C. difficile colitis was treated and then he had more hematochezia a few days ago and CT confirms focal segmental diverticulitis. At that point in time I had started him on budesonide as requested by Dr. Maradiaga on the bone marrow team. I stopped that and started him on single agent Zosyn. Today is day #3 of Zosyn. I have updated the transfer center on this new problem. 2. Anemia. Carefully being watched to see if he needs transfusion. Today he does not 3. C. difficile colitis. Completed 11 days of oral vancomycin on April 15. 4. Pancytopenia which included thrombocytopenia, anemia, leukopenia. 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 As of April 11, oncology concluded that he would benefit from higher level of care transfer for. I called several facilities. [facility] excepted him. Amador Brooks has been the physician accepting him. We are waiting for bed assignment. 5. Sacral decubitus ulcer located more on the right buttock. Stage II. Getting Desitin, offloading, and TPN to help him nutrition 6. Severe protein calorie malnutrition. TPN ongoing. 7. Chronic diastolic heart failure. Euvolemic. However he is developing anasarca from TPN. 8. Orthostatic hypotension. Hydrocortisone has been stopped, he is now on his regular prednisone of [address] Maradiaga's recommendation. Blood pressures appear stable since April 08. 9. Paroxysmal A-fib is stable. Not on anticoagulation because of bleeding 10. History of DVT and PE. Not on anticoagulation. May need a [facility] lter but we do not do that here 11. Chronic kidney disease stable. 12. Hypokalemia stable. 13. COVID-positive status. Asymptomatic. 14. Anal lesion. Benign pathology on biopsy.
[2022-04-18] MEDS: ATORVASTATIN 10 MG TABLET PO SCH (20:30)
[2022-04-19] MEDS: oxyCODONE 5 MG TABLET PO PRN ×3 (00:29→19:10)
[2022-04-19] MEDS: SODIUM CHLORIDE FLUSH 0.9% 10 ML SYRINGE IVP SCH ×3 (01:04→16:35)
[2022-04-19] MEDS: SODIUM CHLORIDE 0.9% 1,000 ML IV SCH (02:48)
[2022-04-19] MEDS: PIPERACILLIN/TAZOBACTAM 3.375 GM in SODIUM CHLORIDE 0.9% MINIBAG 100 ML IV SCH ×4 (02:49→20:10)
[2022-04-19] MEDS: HYDROmorphone 2 MG TABLET PO PRN ×4 (02:49→16:54)
[2022-04-19] MEDS: BENZOCAINE/MENTHOL LOZENGE MM PRN (05:37)
[2022-04-19] MEDS: CARBOXYMETHYLCELLULOSE OPHTH DROPS EACHEYE SCH ×3 (05:37→21:56)
[2022-04-19] MEDS: PANTOPRAZOLE 40 MG TABLET PO SCH (06:29)
[2022-04-19] MEDS: SODIUM CHLORIDE FLUSH 0.9% 10 ML SYRINGE IVP PRN (06:29)
[2022-04-19 07:05] LABS: ALBUMIN 1.5 g/dL (3.2-5.5); ALBUMIN/GLOBULIN RATIO 0.7 (1.0-2.2); BILIRUBIN,TOTAL 0.6 mg/dL (0.2-1.0); CALCIUM 7.2 mg/dL (8.5-10.3); CREATININE 0.7 mg/dL (0.6-1.2); MAGNESIUM 1.9 mg/dL (1.7-2.8); POTASSIUM 3.6 mmol/L (3.5-5.0); TOTAL PROTEIN 3.6 g/dL (6.7-8.2)
[2022-04-19 07:28] LABS: EOSINOPHILS % (AUTO) 3.4 %; HCT - HEMATOCRIT 20.8 % (42.0-52.0); LYMPHOCYTES % (AUTO) 22.7 %; MEAN CORPUSCULAR HEMOGLOBIN 31.4 pg (27.0-31.0); MEAN CORPUSCULAR HGB CONC 31.7 g/dL (32.0-36.0); MEAN PLATELET VOLUME 11.1 fL (7.4-11.4); MONOCYTES % (AUTO) 9.1 %; NEUTROPHILS % (AUTO) 63.7 %; RED CELL DISTRIBUTION WIDTH 20.6 % (12.0-15.0)
[2022-04-19 07:34] LABS: HGB - HEMOGLOBIN 6.6 g/dL (14.0-18.0); PLT - PLATELET COUNT 34 10^3/uL (130-450); WHITE BLOOD COUNT 0.9 x10^3/uL (4.8-10.8)
[2022-04-19 07:35] LABS: ABNORMAL LYMPHS % (MANUAL) 0 %
[2022-04-19] MEDS: ACETAMINOPHEN 325 MG TABLET PO PRN ×2 (07:45→14:26)
[2022-04-19 07:49] LABS: BAND NEUTROPHILS % (MANUAL) 4 %; EOSINOPHILS # (MANUAL) 0.1 10^3/uL (0-0.7); LYMPHOCYTES # (MANUAL) 0.2 10^3/uL (1.5-3.5); LYMPHOCYTES % (MANUAL) 22 %; METAMYELOCYTES % (MANUAL) 2 %; MONOCYTES # (MANUAL) 0.1 10^3/uL (0.0-1.0); NEUTROPHILS # (MANUAL) 0.6 10^3/uL (1.5-6.6)
[2022-04-19 07:52] LABS: DIFFERENTIAL COMMENT MANUAL DIFFERENTIAL; PLATELET ESTIMATE, MANUAL DECREASED (<130,000) (NORMAL); PLATELET MORPHOLOGY NORMAL APPEARANCE (NORMAL)
[2022-04-19] MEDS: INSULIN LISPRO 300 UNIT/3 ML PEN SUBQ SCH ×4 (08:51→21:52)
[2022-04-19] MEDS: CALCIUM CARB (OYSTER SHELL) 500 MG TABLET PO SCH (09:01)
[2022-04-19] MEDS: predniSONE 20 MG TABLET PO SCH (09:01)
[2022-04-19] MEDS: AMIODARONE 200 MG TABLET PO SCH (09:01)
[2022-04-19] MEDS: CHOLECALCIFEROL 25 MCG TABLET PO SCH (09:01)
[2022-04-19] MEDS: TAMSULOSIN 0.4 MG CAPSULE PO SCH (09:02)
[2022-04-19] MEDS: OFLOXACIN 0.3% OPHTH DROPS LEFTEYE SCH (09:02)
[2022-04-19] MEDS: LIDOCAINE OINTMENT 5% 35.44 GM TUBE TOP SCH ×4 (09:02→20:51)
[2022-04-19] MEDS: prednisoLONE 1% OPHTH DROPS 75 DROPS/5 ML BOTTLE LEFTEYE SCH (09:02)
[2022-04-19] MEDS: FLUTICASONE NASAL SPRAY NAS SCH (09:02)
[2022-04-19] MEDS: COD LIVER OIL/ZINC OXIDE 113 GM TUBE TOP PRN ×2 (09:18→11:03)
[2022-04-19] MEDS: ZINC OXIDE 20% OINT 30 GM TUBE TOP PRN (09:19)
[2022-04-19] MEDS: FAT EMULSION 20% 250 ML IV SCH (19:00)
[2022-04-19] MEDS: TPN (CLINIMIX E 5/15) 2,000 ML with MULTIVITAMIN 10 ML, TRACE ELEMENTS 1 ML IV SCH ×3 (19:00)
--- NOTE | 2022-04-19 19:06 | PROVIDER PROGRESS NOTE ---
Assessment/Plan - Problem List (1) Sigmoid diverticulitis Assessment/Plan: He presented as hematochezia on admission. Had C. difficile colitis. C. difficile colitis was treated and then he had more hematochezia a few days ago and CT confirms focal segmental diverticulitis. At that point in time, we had him on budesonide as requested by Dr. Maradiaga on the bone marrow team. That was stopped and we started him on single agent Zosyn. We have been updating the transfer center at on his diagnoses daily. Plan: Transfer to when a bed opens, he has been accepted 2. Anemia. His CBC is carefully being watched to see if he needs transfusion. I reviewed all labs today. Transfuse for Hgb <7 3. C. difficile colitis. Completed 11 days of oral vancomycin on April 15. 4. Acute hemorrhagic cystitis 5 Pancytopenia This continue. We follow CBC daily 6. Thrombocytopenia This is chronic. We follow CBC daily, transfuse plts if < 30 7. Leukopenia. 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 As of April 11, oncology concluded that he would benefit from higher level of care transfer for. I called several facilities. [facility] excepted him. Amador Brooks has been the physician accepting him. We are waiting for bed assignment. 8. Sacral decubitus ulcer located more on the right buttock. Stage II. Getting Desitin, offloading, and TPN to help him nutrition 9 Severe protein calorie malnutrition. TPN ongoing. 10. Chronic diastolic heart failure. Euvolemic. However he is developing anasarca from TPN. 11. Orthostatic hypotension. Hydrocortisone has been stopped, he is now on his regular prednisone of 10 mg [address] day per Dr. Maradiaga's recommendation. Blood pressures appear stable since April 08. 12. Paroxysmal A-fib is stable. Not on anticoagulation because of bleeding 13 History of DVT and PE. Not on anticoagulation. May need a [place] filter but we do not do that here 14. Chronic kidney disease stable. 15. Hypokalemia stable. 16. COVID-positive status. Asymptomatic. 17. Anal lesion. Benign pathology on biopsy. - Current Meds Current Meds: Current Medications Generic Name Dose Route Start Last Admin Trade Name Freq PRN Reason Stop Dose Admin Acetaminophen 650 mg 04/02/22 16:39 04/19/22 14:26 Acetaminophen 325 Mg Tablet PO 650 mg Q4HR PRN Administration Pain 1 to 4, or Fever Amiodarone HCl 100 mg 04/08/22 09:00 04/19/22 09:01 Amiodarone 200 Mg Tablet PO Not Given DAILY [facility] Atorvastatin Calcium 10 mg 04/04/22 21:00 04/18/22 20:30 Atorvastatin 10 Mg Tablet PO 10 mg 2100 [facility] Administration Calcium Carbonate/Glycine 500 mg 04/04/22 09:00 04/19/22 09:01 Calcium Carb (Oyster Shell) 500 Mg Tablet PO Not Given 09 [facility] Calcium Carbonate/Glycine 500 mg 04/04/22 18:17 04/15/22 21:08 Calcium Carbonate Chew 500 Mg Tablet PO 500 mg TID PRN Administration INDIGESTION Carboxymethylcellulose 1 drops 04/09/22 11:22 04/19/22 14:26 Carboxymethylcellulose Ophth Drops EACHEYE 1 drops TID JUJU Administration Cholecalciferol 50 mcg 04/04/22 17:00 04/19/22 09:01 Cholecalciferol 25 Mcg Tablet PO Not Given DAILY [facility] Fluticasone Propionate 1 sprays 04/05/22 09:00 04/19/22 09:02 Fluticasone Nasal Pearl SHENA Not Given DAILY [facility] Heparin Sodium (Beef Lung) 30 - 50 unit 04/03/22 16:08 04/04/22 08:25 Heparin Flush 50 Units/5 Ml Syringe IVP 50 unit PRN PRN Administration Port Protocol (<24 hours) Hydromorphone HCl 4 mg 04/19/22 00:06 04/19/22 16:54 Hydromorphone 2 Mg Tablet PO 4 mg Q4HR PRN Administration Severe Pain Fat Emulsion Intravenous 250 mls @ 21 mls/hr 04/08/22 19:00 04/19/22 19:00 Intralipid 20% IV 21 mls/hr 1900 JUJU Administration Sodium Chloride 1,000 mls @ 30 mls/hr 04/16/22 01:00 04/19/22 02:48 Normal Saline 0.9% IV Not Given Q24H JUJU TKO Piperacillin Sod/Tazobactam 100 mls @ 200 mls/hr 04/17/22 20:00 04/19/22 15:20 Sod 3.375 gm/ Sodium Chloride IV Infused Q6H JUJU Infusion Multivitamins 10 ml/ TRACE 2,011 mls @ 70 mls/hr 04/18/22 19:00 04/19/22 19:00 ELEMENTS 1 ml/ Amino Ac/ IV 70 mls/hr Electrol/Dextrose/Calcium 1900 [facility] Administration Protocol Insulin Human Lispro 1 - 9 unit 04/15/22 08:00 04/19/22 18:01 Insulin Lispro 300 Unit/3 Ml Pen SUBQ Not Given 0800,1200,1700,2100 [facility] Protocol Lidocaine 1 applic 04/15/22 13:00 04/19/22 17:59 Lidocaine Ointment 5% 35.44 Gm Tube TOP 1 applic QID JUJU Administration Multi-Ingredient Ointment 1 applic 04/04/22 10:11 04/19/22 09:19 Zinc Oxide 20% Oint 30 Gm Tube TOP 1 applic PRN PRN Administration Skin Care Ofloxacin 1 drops 04/04/22 09:00 04/19/22 09:02 Ofloxacin 0.3% Ophth Drops LEFTEYE Not Given DAILY [facility] Ondansetron HCl 4 mg 04/02/22 16:39 04/05/22 02:20 Ondansetron 4 Mg/2 Ml Vial IVP 4 mg Q6HR PRN Administration Nausea / Vomiting Oxycodone HCl 5 mg 04/05/22 08:52 04/19/22 11:03 Oxycodone 5 Mg Tablet PO 5 mg Q6HR PRN Administration Pain 5 to 7 Pantoprazole Sodium 40 mg 04/04/22 19:00 04/19/22 06:29 Pantoprazole 40 Mg Tablet PO 40 mg QDAC [facility] Administration Prednisolone 1 drops 04/04/22 09:00 04/19/22 09:02 Prednisolone 1% Ophth Drops 75 Drops/5 Ml Bottle LEFTEYE Not Given DAILY JUJU Prednisone 10 mg 04/16/22 08:00 04/19/22 09:01 Prednisone 20 Mg Tablet PO Not Given DAILYWM [facility] Sodium Chloride 10 ml 04/02/22 16:39 04/19/22 06:29 Sodium Chloride Flush 0.9% 10 Ml Syringe IVP 30 ml PRN PRN Administration NEEDED PER PROVIDER ORDERS Sodium Chloride 10 ml 04/02/22 17:00 04/19/22 16:35 Sodium Chloride Flush 0.9% 10 Ml Syringe IVP Not Given 0100,0900,1700 JUJU Tamsulosin HCl 0.4 mg 04/08/22 08:02 04/19/22 09:02 Tamsulosin 0.4 Mg Capsule PO Not Given DAILY JUJU Throat Lozenges 1 lozenge 04/19/22 02:53 04/19/22 05:37 Benzocaine/Menthol Lozenge MM 1 lozenge Q2HR PRN Administration Throat pain Witch Kasey/Glycerin 1 pad 04/03/22 15:28 04/11/22 20:11 Witch [place]y/Glycerin 1 Pad TOP 1 pad PRN PRN Administration ITCHING Zinc Oxide 113 gm 04/06/22 09:26 04/19/22 11:03 Cod Liver Oil/Zinc Oxide 113 Gm Tube TOP 1 applic PRN PRN Administration Skin Care - Lab Result Fish Bone Diagrams: 04/24/22 08:35 04/24/22 08:35 - Additional Planning My Orders: My Active Orders 04/19/22 07:40 Transfuse RBCs Leukoreduced [RC] .ONCE Subjective - Subjective Patient Reports: Resting Comfortably, Other (Poor apetite) Objective Vital Signs: Vital Signs - 24 hr 04/18/22 04/19/22 04/19/22 23:27 07:56 10:31 Temperature 36.4 C L 36.3 C L 36.9 C Heart Rate [ 71 76 83 Brachial] Respiratory 16 16 Rate Blood Pressure 121/70 115/58 L 119/65 [Right Brachial artery] O2 Saturation 96 94 96 04/19/22 04/19/22 04/19/22 10:45 11:00 11:20 Temperature 36.9 C 36.8 C 36.8 C Heart Rate [ 82 80 79 Brachial] Respiratory 16 16 16 Rate Blood Pressure 119/65 97/46 L 105/53 L [Right Brachial artery] O2 Saturation 94 95 95 04/19/22 04/19/22 04/19/22 12:12 12:36 12:55 Temperature 36.9 C 36.9 C Heart Rate [ 77 73 77 Brachial] Respiratory 18 16 16 Rate Blood Pressure 103/51 L 121/60 [Right Brachial artery] O2 Saturation 96 98 93 04/19/22 04/19/22 13:16 13:22 Temperature 36.4 C L 36.4 C L Heart Rate [ 74 74 Brachial] Respiratory 18 18 Rate Blood Pressure 115/61 115/61 [Right Brachial artery] O2 Saturation 96 96 Oxygen O2 Source Room air I&O (Last 24 Hrs): Intake and Output Totals x24h 04/17/22 04/18/22 04/19/22 23:59 23:59 23:59 Intake Total 3634.217 2968.883 2907.000 Output Total 3050 2250 3050 Balance 584.217 718.883 -143.000 General: Alert, Oriented x3 HEENT: Mucous membr. moist/pink Neck: Supple Neuro: Non Focal Cardiovascular: No murmurs Respiratory: No respiratory distress Abdomen: Soft Extremities: Other (1+ edema posterior calves to lower posterior thighs) - Results Results: Laboratory Results WBC 0.9 x10^3/uL (4.8-10.8) L* 04/19/22 06:35 RBC 2.10 10^6/uL (4.70-6.10) L 04/19/22 06:35 Hgb 6.6 g/dL (14.0-18.0) L* 04/19/22 06:35 Hct 20.8 % (42.0-52.0) L 04/19/22 06:35 MCV 99.0 fL (80.0-94.0) H 04/19/22 06:35 MCH 31.4 pg (27.0-31.0) H 04/19/22 06:35 MCHC 31.7 g/dL (32.0-36.0) L 04/19/22 06:35 RDW 20.6 % (12.0-15.0) H 04/19/22 06:35 Plt Count 34 10^3/uL (130-450) L* 04/19/22 06:35 MPV 11.1 fL (7.4-11.4) 04/19/22 06:35 Neut # (Auto) Not Reportable 04/19/22 06:35 Lymph # (Auto) Not Reportable 04/19/22 06:35 [place] # (Auto) Not Reportable 04/19/22 06:35 Eos # (Auto) Not Reportable 04/19/22 06:35 Baso # (Auto) Not Reportable 04/19/22 06:35 Absolute Nucleated RBC Not Reportable 04/19/22 06:35 Total Counted 50 04/19/22 06:35 Band Neuts % (Manual) 4 % (0-10) 04/19/22 06:35 Reactive Lymphs % (Man) 4 % 04/18/22 06:50 Abnorm Lymph % (Manual) 0 % 04/19/22 06:35 Metamyelocytes % 2 % (-0) H 04/19/22 06:35 Myelocytes % 1 % (-0) H 04/12/22 05:25 Nucleated RBC % Not Reportable 04/19/22 06:35 Neutrophils # (Manual) 0.6 10^3/uL (1.5-6.6) L 04/19/22 06:35 Lymphocytes # (Manual) 0.2 10^3/uL (1.5-3.5) L 04/19/22 06:35 Monocytes # (Manual) 0.1 10^3/uL (0.0-1.0) 04/19/22 06:35 Eosinophils # (Manual) 0.1 10^3/uL (0-0.7) 04/19/22 06:35 Basophils # (Manual) 0.0 10^3/uL (0-0.1) 04/19/22 06:35 Nucleated RBCs 1 % 04/16/22 05:07 Differential Comment MANUAL DIFFERENTIAL 04/19/22 06:35 Manual Slide Review Indicated 04/10/22 09:15 WBC Morphology 1+ DOHLE BODIES (NORMAL) 04/18/22 06:50 Platelet Estimate DECREASED (<130,000) (NORMAL) 04/19/22 06:35 Platelet Morphology NORMAL APPEARANCE (NORMAL) 04/19/22 06:35 RBC Morph Micro Appear 2+ ANISOCYTOSIS (NORMAL) 2+ HYPOCHROMASIA (NORMAL) 1+ POLYCHROMASIA (NORMAL) 1+ OVALOCYTES (NORMAL) 04/19/22 06:35 RBC Morph Micro Appear 2+ ANISOCYTOSIS (NORMAL) 2+ HYPOCHROMASIA (NORMAL) 1+ POLYCHROMASIA (NORMAL) 1+ OVALOCYTES (NORMAL) 04/19/22 06:35 RBC Morph Micro Appear 2+ ANISOCYTOSIS (NORMAL) 2+ HYPOCHROMASIA (NORMAL) 1+ POLYCHROMASIA (NORMAL) 1+ OVALOCYTES (NORMAL) 04/19/22 06:35 RBC Morph Micro Appear 2+ ANISOCYTOSIS (NORMAL) 2+ HYPOCHROMASIA (NORMAL) 1+ POLYCHROMASIA (NORMAL) 1+ OVALOCYTES (NORMAL) 04/19/22 06:35 PT 12.8 secs (9.9-12.6) H 04/02/22 05:49 INR 1.2 (0.8-1.2) 04/02/22 05:49 Sodium 138 mmol/L (135-145) 04/19/22 06:35 Potassium 3.6 mmol/L (3.5-5.0) 04/19/22 06:35 Chloride 105 mmol/L (101-111) 04/19/22 06:35 Carbon Dioxide 24 mmol/L (21-32) 04/19/22 06:35 Anion Gap 9.0 (6-13) 04/19/22 06:35 BUN 17 mg/dL (6-20) 04/19/22 06:35 Creatinine 0.7 mg/dL (0.6-1.2) 04/19/22 06:35 Estimated GFR (MDRD) 111 (>89) 04/19/22 06:35 Glucose 107 mg/dL (70-100) H 04/19/22 06:35 Calcium 7.2 mg/dL (8.5-10.3) L 04/19/22 06:35 Phosphorus 3.0 mg/dL (2.5-4.6) 04/19/22 06:35 Magnesium 1.9 mg/dL (1.7-2.8) 04/19/22 06:35 Total Bilirubin 0.6 mg/dL (0.2-1.0) 04/19/22 06:35 AST 19 IU/L (10-42) 04/19/22 06:35 ALT 24 IU/L (10-60) 04/19/22 06:35 Alkaline Phosphatase 50 IU/L (42-121) 04/19/22 06:35 Total Protein 3.6 g/dL (6.7-8.2) L 04/19/22 06:35 Albumin 1.5 g/dL (3.2-5.5) L 04/19/22 06:35 Globulin 2.1 g/dL (2.1-4.2) 04/19/22 06:35 Albumin/Globulin Ratio 0.7 (1.0-2.2) L 04/19/22 06:35 Prealbumin 12 mg/dL (18-45) L 04/19/22 06:35 Triglycerides 86 mg/dL (-149) 04/19/22 06:35 Lipase 21 U/L (22-51) L 04/02/22 05:49 Urine Color RED/BLOODY 04/02/22 11:40 Urine Clarity TURBID (CLEAR) 04/02/22 11:40 Urine pH 6.0 PH (5.0-7.5) 04/02/22 11:40 Ur Specific [place] 1.025 (1.002-1.030) 04/02/22 11:40 Urine Protein >=300 mg/dL (NEGATIVE) H 04/02/22 11:40 Urine Glucose (UA) NEGATIVE mg/dL (NEGATIVE) 04/02/22 11:40 Urine Ketones NEGATIVE mg/dL (NEGATIVE) 04/02/22 11:40 Urine Occult Blood LARGE (NEGATIVE) H 04/02/22 11:40 Urine Nitrite NEGATIVE (NEGATIVE) 04/02/22 11:40 Urine Bilirubin NEGATIVE (NEGATIVE) 04/02/22 11:40 Urine Urobilinogen 0.2 (NORMAL) E.U./dL (NORMAL) 04/02/22 11:40 Ur Leukocyte Esterase NEGATIVE (NEGATIVE) 04/02/22 11:40 Urine RBC TNTC /HPF (0-5) H 04/02/22 11:40 Urine WBC 6-10 /HPF (0-3) H 04/02/22 11:40 Ur Squamous Epith Cells NONE SEEN (<= Few) 04/02/22 11:40 Urine Bacteria None Seen /HPF (None Seen) 04/02/22 11:40 Urine Yeast PRESENT 04/02/22 11:40 Ur Microscopic Review INDICATED 04/02/22 11:40 Urine Culture Comments NOT INDICATED 04/02/22 11:40 Stl C. diff Tox B Gene POSITIVE (NEGATIVE) A* 04/05/22 13:50 SARS-CoV-2 (PCR) DETECTED A 04/12/22 15:45 Blood Type AB POSITIVE 04/19/22 08:20 Antibody Screen NEGATIVE 04/19/22 08:20 Crossmatch IS Only See Detail 04/19/22 08:20 - Procedures Procedures: Procedures TRANSFUSE NONAUT PLATELETS IN PERIPH VEIN, PERC (06/24/21)
[2022-04-19] MEDS: ATORVASTATIN 10 MG TABLET PO SCH (21:56)
[2022-04-20] MEDS: SODIUM CHLORIDE FLUSH 0.9% 10 ML SYRINGE IVP SCH ×4 (00:34→23:45)
[2022-04-20] MEDS: HYDROmorphone 2 MG TABLET PO PRN (00:38)
[2022-04-20] MEDS: PIPERACILLIN/TAZOBACTAM 3.375 GM in SODIUM CHLORIDE 0.9% MINIBAG 100 ML IV SCH ×4 (02:04→20:22)
[2022-04-20] MEDS: FLUTICASONE NASAL SPRAY NAS SCH (05:21)
[2022-04-20] MEDS: PANTOPRAZOLE 40 MG TABLET PO SCH (05:21)
[2022-04-20] MEDS: CARBOXYMETHYLCELLULOSE OPHTH DROPS EACHEYE SCH ×3 (05:21→21:00)
[2022-04-20] MEDS: CALCIUM CARB (OYSTER SHELL) 500 MG TABLET PO SCH (08:25)
[2022-04-20] MEDS: TAMSULOSIN 0.4 MG CAPSULE PO SCH (08:25)
[2022-04-20] MEDS: CHOLECALCIFEROL 25 MCG TABLET PO SCH (08:25)
[2022-04-20] MEDS: predniSONE 20 MG TABLET PO SCH (08:26)
[2022-04-20] MEDS: AMIODARONE 200 MG TABLET PO SCH (08:26)
[2022-04-20] MEDS: prednisoLONE 1% OPHTH DROPS 75 DROPS/5 ML BOTTLE LEFTEYE SCH (08:32)
[2022-04-20] MEDS: OFLOXACIN 0.3% OPHTH DROPS LEFTEYE SCH (08:34)
[2022-04-20] MEDS: INSULIN LISPRO 300 UNIT/3 ML PEN SUBQ SCH ×4 (08:34→20:50)
[2022-04-20] MEDS: LIDOCAINE OINTMENT 5% 35.44 GM TUBE TOP SCH ×4 (08:41→20:25)
[2022-04-20 09:18] LABS: BASOPHILS % (AUTO) 0.8 %; EOSINOPHILS % (AUTO) 1.6 %; HCT - HEMATOCRIT 24.6 % (42.0-52.0); HGB - HEMOGLOBIN 7.9 g/dL (14.0-18.0); LYMPHOCYTES # (AUTO) 0.3 10^3/uL (1.5-3.5); LYMPHOCYTES % (AUTO) 20.2 %; MEAN CORPUSCULAR HEMOGLOBIN 30.9 pg (27.0-31.0); MEAN CORPUSCULAR HGB CONC 32.1 g/dL (32.0-36.0); MEAN CORPUSCULAR VOLUME 96.1 fL (80.0-94.0); MEAN PLATELET VOLUME 10.1 fL (7.4-11.4); MONOCYTES # (AUTO) 0.2 10^3/uL (0.0-1.0); MONOCYTES % (AUTO) 11.6 %; NEUTROPHILS # (AUTO) 0.8 10^3/uL (1.5-6.6); RED BLOOD COUNT 2.56 10^6/uL (4.70-6.10); RED CELL DISTRIBUTION WIDTH 19.7 % (12.0-15.0)
[2022-04-20 09:24] LABS: PLT - PLATELET COUNT 31 10^3/uL (130-450); SLIDE REVIEW? Indicated; WHITE BLOOD COUNT 1.3 x10^3/uL (4.8-10.8)
[2022-04-20] MEDS: COD LIVER OIL/ZINC OXIDE 113 GM TUBE TOP PRN (09:30)
[2022-04-20 09:40] LABS: PLATELET ESTIMATE, MANUAL DECREASED (<130,000) (NORMAL); PLATELET MORPHOLOGY NORMAL APPEARANCE (NORMAL)
[2022-04-20 09:45] LABS: CALCIUM 6.8 mg/dL (8.5-10.3); CREATININE 0.7 mg/dL (0.6-1.2); POTASSIUM 3.3 mmol/L (3.5-5.0)
[2022-04-20] MEDS: SODIUM CHLORIDE 0.9% 1,000 ML IV SCH (12:33)
--- NOTE | 2022-04-20 16:03 | PROVIDER PROGRESS NOTE ---
Assessment/Plan - Problem List (1) Sigmoid diverticulitis Assessment/Plan: He presented with mild hematochezia on admission. Had C. difficile colitis. C. difficile colitis was treated and then he had more hematochezia several days ago and CT confirmed focal segmental diverticulitis. At that point in time, we had him on budesonide as requested by Dr. Maradiaga on the bone marrow team. That was stopped and we started him on single agent Zosyn. We have been updating the transfer center at on his diagnoses daily. Plan: Transfer to when a bed opens, he has been accepted 2. Anemia. His CBC is carefully being watched to see if he needs transfusion. I reviewed all labs today. Plan: Transfuse for Hgb <7 3. C. difficile colitis. Completed 11 days of oral vancomycin on April 15. 4. Acute hemorrhagic cystitis His Juarez needed to be reinserted and remains in place due to on and off hematuria. Plan: Urol input awaited, when transferred 5 Pancytopenia This continue. We follow CBC daily. We learned from Dr Danyelle Ortiz, his Oncologist, that pancytopenia is his new normal 6. Thrombocytopenia This is chronic. Plan: We follow CBC daily, transfuse plts if < 30 7. Leukopenia. 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 As of April 11, oncology concluded that he would benefit from higher level of care transfer for. I called several facilities. [facility] accepted him. Amador Brooks has been the physician accepting him. We are waiting for bed assignment. 8. Sacral decubitus ulcer This is located more on the right buttock. Stage II. Getting Desitin, offloading turning and repositioning, and TPN was started to help him with calories and protein to heal. 9 Severe protein calorie malnutrition. TPN is ongoing. 10. Chronic diastolic heart failure. He remains intravascularly euvolemic. However he is developing leg anasarca from TPN fluids. Plan: watch I's and O's and consider diuretic 11. Orthostatic hypotension. Hydrocortisone (as stress dose steroids initially) has been stopped, he is now on his regular prednisone of 10 mg [address] day per Dr. Maradiaga's recommendation. Blood pressures appear stable since April 08. 12. Paroxysmal A-fib is stable. Not on anticoagulation because of bleeding 13 History of DVT and PE. Not on anticoagulation. May need a [place] filter but we do not do that here. 14. Chronic kidney disease All labs were reviewed Renal function is stable. 15. Hypokalemia All labs were reviewed. He needs intermittent potassium supplements even on top of what is in his TPN 16. COVID-positive status. Asymptomatic. 17. Anal lesion. Biopsy showed a benign pathology - Current Meds Current Meds: Current Medications Generic Name Dose Route Start Last Admin Trade Name Freq PRN Reason Stop Dose Admin Acetaminophen 650 mg 04/02/22 16:39 04/19/22 14:26 Acetaminophen 325 Mg Tablet PO 650 mg Q4HR PRN Administration Pain 1 to 4, or Fever Amiodarone HCl 100 mg 04/08/22 09:00 04/20/22 08:26 Amiodarone 200 Mg Tablet PO 100 mg DAILY JUJU Administration Atorvastatin Calcium 10 mg 04/04/22 21:00 04/19/22 21:56 Atorvastatin 10 Mg Tablet PO 10 mg 2100 JUJU Administration Calcium Carbonate/Glycine 500 mg 04/04/22 09:00 04/20/22 08:25 Calcium Carb (Oyster Shell) 500 Mg Tablet PO 500 mg 0900 JUJU Administration Calcium Carbonate/Glycine 500 mg 04/04/22 18:17 04/15/22 21:08 Calcium Carbonate Chew 500 Mg Tablet PO 500 mg TID PRN Administration INDIGESTION Carboxymethylcellulose 1 drops 04/09/22 11:22 04/20/22 13:43 Carboxymethylcellulose Ophth Drops EACHEYE 1 drops TID JUJU Administration Cholecalciferol 50 mcg 04/04/22 17:00 04/20/22 08:25 Cholecalciferol 25 Mcg Tablet PO 50 mcg DAILY JUJU Administration Fluticasone Propionate 1 sprays 04/05/22 09:00 04/20/22 05:21 Fluticasone Nasal [place] SHENA 1 spr DAILY JUJU Administration Heparin Sodium (Beef Lung) 30 - 50 unit 04/03/22 16:08 04/04/22 08:25 Heparin Flush 50 Units/5 Ml Syringe IVP 50 unit PRN PRN Administration Port Protocol (<24 hours) Hydromorphone HCl 4 mg 04/19/22 00:06 04/20/22 00:38 Hydromorphone 2 Mg Tablet PO 4 mg Q4HR PRN Administration Severe Pain Fat Emulsion Intravenous 250 mls @ 21 mls/hr 04/08/22 19:00 04/20/22 07:00 Intralipid 20% IV Infused 1900 [facility] Infusion Sodium Chloride 1,000 mls @ 30 mls/hr 04/16/22 01:00 04/20/22 12:33 Normal Saline 0.9% IV 30 mls/hr Q24H JUJU Administration TKO Piperacillin Sod/Tazobactam 100 mls @ 200 mls/hr 04/17/22 20:00 04/20/22 15:52 Sod 3.375 gm/ Sodium Chloride IV Infused Q6H [facility] Infusion Multivitamins 10 ml/ TRACE 2,011 mls @ 70 mls/hr 04/18/22 19:00 04/19/22 19:00 ELEMENTS 1 ml/ Amino Ac/ IV 70 mls/hr Electrol/Dextrose/Calcium 1900 [facility] Administration Protocol Insulin Human Lispro 1 - 9 unit 04/15/22 08:00 04/20/22 12:29 Insulin Lispro 300 Unit/3 Ml Pen SUBQ 1 unit 0800,1200,1700,2100 [facility] Administration Protocol Lidocaine 1 applic 04/15/22 13:00 04/20/22 12:28 Lidocaine Ointment 5% 35.44 Gm Tube TOP 1 applic QID JUJU Administration Multi-Ingredient Ointment 1 applic 04/04/22 10:11 04/19/22 09:19 Zinc Oxide 20% Oint 30 Gm Tube TOP 1 applic PRN PRN Administration Skin Care Ofloxacin 1 drops 04/04/22 09:00 04/20/22 08:34 Ofloxacin 0.3% Ophth Drops LEFTEYE 1 drops DAILY JUJU Administration Ondansetron HCl 4 mg 04/02/22 16:39 04/05/22 02:20 Ondansetron 4 Mg/2 Ml Vial IVP 4 mg Q6HR PRN Administration Nausea / Vomiting Oxycodone HCl 5 mg 04/05/22 08:52 04/19/22 19:10 Oxycodone 5 Mg Tablet PO 5 mg Q6HR PRN Administration Pain 5 to 7 Pantoprazole Sodium 40 mg 04/04/22 19:00 04/20/22 05:21 Pantoprazole 40 Mg Tablet PO 40 mg QDAC JUJU Administration Prednisolone 1 drops 04/04/22 09:00 04/20/22 08:32 Prednisolone 1% Ophth Drops 75 Drops/5 Ml Bottle LEFTEYE 1 drops DAILY JUJU Administration Prednisone 10 mg 04/16/22 08:00 04/20/22 08:26 Prednisone 20 Mg Tablet PO 10 mg DAILYWM JUJU Administration Sodium Chloride 10 ml 04/02/22 16:39 04/19/22 06:29 Sodium Chloride Flush 0.9% 10 Ml Syringe IVP 30 ml PRN PRN Administration NEEDED PER PROVIDER ORDERS Sodium Chloride 10 ml 04/02/22 17:00 04/20/22 08:35 Sodium Chloride Flush 0.9% 10 Ml Syringe IVP Not Given 0100,0900,1700 JUJU Tamsulosin HCl 0.4 mg 04/08/22 08:02 04/20/22 08:25 Tamsulosin 0.4 Mg Capsule PO 0.4 mg DAILY JUJU Administration Throat Lozenges 1 lozenge 04/19/22 02:53 04/19/22 05:37 Benzocaine/Menthol Lozenge MM 1 lozenge Q2HR PRN Administration Throat pain [place]/Glycerin 1 pad 04/03/22 15:28 04/11/22 20:11 [place]/Glycerin 1 Pad TOP 1 pad PRN PRN Administration ITCHING Zinc Oxide 113 gm 04/06/22 09:26 04/20/22 09:30 Cod Liver Oil/Zinc Oxide 113 Gm Tube TOP 1 applic PRN PRN Administration Skin Care - Lab Result Fish Bone Diagrams: 04/24/22 08:35 04/24/22 08:35 - Additional Planning My Orders: My Active Orders 04/21/22 05:00 BMP - BASIC METABOLIC PANEL [CHEM] DAILYLAB CBC - COMP BLD CT W/AUTO DIFF [HEME] DAILYLAB Subjective - Subjective Patient Reports: Resting Comfortably Nursing Reports: Other (He is getting more leg edema, per his RN) Objective Vital Signs: Vital Signs - 24 hr 04/19/22 04/20/22 04/20/22 21:00 02:00 07:46 Temperature 36.3 C L 37.2 C 37.1 C Heart Rate [ 83 85 95 Brachial] Respiratory 18 22 20 Rate Blood Pressure 129/68 133/61 H 132/66 H [Right Brachial artery] O2 Saturation 99 95 97 Oxygen O2 Source Room air I&O (Last 24 Hrs): Intake and Output Totals x24h 04/18/22 04/19/22 04/20/22 23:59 23:59 23:59 Intake Total 2968.883 3007.000 1790 Output Total 2250 4050 2950 Balance 718.883 -1043.000 -1160 General: Alert, Other (Appears tired) HEENT: Mucous membr. moist/pink, Other (L eye is patched) Neck: Supple Neuro: Alert, Non Focal Cardiovascular: No murmurs Respiratory: No respiratory distress Abdomen: Soft, No tenderness Extremities: Other (1+ posterior (dependant, since mostly in bed) leg edema to lower thighs) - Results Results: Laboratory Results WBC 1.3 x10^3/uL (4.8-10.8) L* 04/20/22 09:07 RBC 2.56 10^6/uL (4.70-6.10) L 04/20/22 09:07 Hgb 7.9 g/dL (14.0-18.0) L 04/20/22 09:07 Hct 24.6 % (42.0-52.0) L 04/20/22 09:07 MCV 96.1 fL (80.0-94.0) H 04/20/22 09:07 MCH 30.9 pg (27.0-31.0) 04/20/22 09:07 MCHC 32.1 g/dL (32.0-36.0) 04/20/22 09:07 RDW 19.7 % (12.0-15.0) H 04/20/22 09:07 Plt Count 31 10^3/uL (130-450) L* 04/20/22 09:07 MPV 10.1 fL (7.4-11.4) 04/20/22 09:07 Neut # (Auto) 0.8 10^3/uL (1.5-6.6) L 04/20/22 09:07 Lymph # (Auto) 0.3 10^3/uL (1.5-3.5) L 04/20/22 09:07 [place] # (Auto) 0.2 10^3/uL (0.0-1.0) 04/20/22 09:07 Eos # (Auto) 0.0 10^3/uL (0.0-0.7) 04/20/22 09:07 Baso # (Auto) 0.0 10^3/uL (0.0-0.1) 04/20/22 09:07 Absolute Nucleated RBC 0.00 x10^3/uL 04/20/22 09:07 Total Counted 50 04/19/22 06:35 Band Neuts % (Manual) 4 % (0-10) 04/19/22 06:35 Reactive Lymphs % (Man) 4 % 04/18/22 06:50 Abnorm Lymph % (Manual) 0 % 04/19/22 06:35 Metamyelocytes % 2 % (-0) H 04/19/22 06:35 Myelocytes % 1 % (-0) H 04/12/22 05:25 Nucleated RBC % 0.0 /100WBC 04/20/22 09:07 Neutrophils # (Manual) 0.6 10^3/uL (1.5-6.6) L 04/19/22 06:35 Lymphocytes # (Manual) 0.2 10^3/uL (1.5-3.5) L 04/19/22 06:35 Monocytes # (Manual) 0.1 10^3/uL (0.0-1.0) 04/19/22 06:35 Eosinophils # (Manual) 0.1 10^3/uL (0-0.7) 04/19/22 06:35 Basophils # (Manual) 0.0 10^3/uL (0-0.1) 04/19/22 06:35 Nucleated RBCs 1 % 04/16/22 05:07 Differential Comment MANUAL DIFFERENTIAL 04/19/22 06:35 Manual Slide Review Indicated 04/20/22 09:07 WBC Morphology 1+ DOHLE BODIES (NORMAL) 04/18/22 06:50 Platelet Estimate DECREASED (<130,000) (NORMAL) 04/20/22 09:07 Platelet Morphology NORMAL APPEARANCE (NORMAL) 04/20/22 09:07 RBC Morph Micro Appear 2+ ANISOCYTOSIS (NORMAL) 1+ HYPOCHROMASIA (NORMAL) 04/20/22 09:07 RBC Morph Micro Appear 2+ ANISOCYTOSIS (NORMAL) 1+ HYPOCHROMASIA (NORMAL) 04/20/22 09:07 PT 12.8 secs (9.9-12.6) H 04/02/22 05:49 INR 1.2 (0.8-1.2) 04/02/22 05:49 Sodium 134 mmol/L (135-145) L 04/20/22 09:07 Potassium 3.3 mmol/L (3.5-5.0) L 04/20/22 09:07 Chloride 102 mmol/L (101-111) 04/20/22 09:07 Carbon Dioxide 23 mmol/L (21-32) 04/20/22 09:07 Anion Gap 9.0 (6-13) 04/20/22 09:07 BUN 17 mg/dL (6-20) 04/20/22 09:07 Creatinine 0.7 mg/dL (0.6-1.2) 04/20/22 09:07 Estimated GFR (MDRD) 111 (>89) 04/20/22 09:07 Glucose 122 mg/dL (70-100) H 04/20/22 09:07 Calcium 6.8 mg/dL (8.5-10.3) L 04/20/22 09:07 Phosphorus 3.0 mg/dL (2.5-4.6) 04/19/22 06:35 Magnesium 1.9 mg/dL (1.7-2.8) 04/19/22 06:35 Total Bilirubin 0.6 mg/dL (0.2-1.0) 04/19/22 06:35 AST 19 IU/L (10-42) 04/19/22 06:35 ALT 24 IU/L (10-60) 04/19/22 06:35 Alkaline Phosphatase 50 IU/L (42-121) 04/19/22 06:35 Total Protein 3.6 g/dL (6.7-8.2) L 04/19/22 06:35 Albumin 1.5 g/dL (3.2-5.5) L 04/19/22 06:35 Globulin 2.1 g/dL (2.1-4.2) 04/19/22 06:35 Albumin/Globulin Ratio 0.7 (1.0-2.2) L 04/19/22 06:35 Prealbumin 12 mg/dL (18-45) L 04/19/22 06:35 Triglycerides 86 mg/dL (-149) 04/19/22 06:35 Lipase 21 U/L (22-51) L 04/02/22 05:49 Urine Color RED/BLOODY 04/02/22 11:40 Urine Clarity TURBID (CLEAR) 04/02/22 11:40 Urine pH 6.0 PH (5.0-7.5) 04/02/22 11:40 Ur Specific [place] 1.025 (1.002-1.030) 04/02/22 11:40 Urine Protein >=300 mg/dL (NEGATIVE) H 04/02/22 11:40 Urine Glucose (UA) NEGATIVE mg/dL (NEGATIVE) 04/02/22 11:40 Urine Ketones NEGATIVE mg/dL (NEGATIVE) 04/02/22 11:40 Urine Occult Blood LARGE (NEGATIVE) H 04/02/22 11:40 Urine Nitrite NEGATIVE (NEGATIVE) 04/02/22 11:40 Urine Bilirubin NEGATIVE (NEGATIVE) 04/02/22 11:40 Urine Urobilinogen 0.2 (NORMAL) E.U./dL (NORMAL) 04/02/22 11:40 Ur Leukocyte Esterase NEGATIVE (NEGATIVE) 04/02/22 11:40 Urine RBC TNTC /HPF (0-5) H 04/02/22 11:40 Urine WBC 6-10 /HPF (0-3) H 04/02/22 11:40 Ur Squamous Epith Cells NONE SEEN (<= Few) 04/02/22 11:40 Urine Bacteria None Seen /HPF (None Seen) 04/02/22 11:40 Urine Yeast PRESENT 04/02/22 11:40 Ur Microscopic Review INDICATED 04/02/22 11:40 Urine Culture Comments NOT INDICATED 04/02/22 11:40 Stl C. diff Tox B Gene POSITIVE (NEGATIVE) A* 04/05/22 13:50 SARS-CoV-2 (PCR) DETECTED A 04/12/22 15:45 Blood Type AB POSITIVE 04/19/22 08:20 Antibody Screen NEGATIVE 04/19/22 08:20 Crossmatch IS Only See Detail 04/19/22 08:20 - Procedures Procedures: Procedures TRANSFUSE NONAUT PLATELETS IN PERIPH VEIN, PERC (06/24/21)
[2022-04-20] MEDS: FAT EMULSION 20% 250 ML IV SCH (19:02)
[2022-04-20] MEDS: TPN (CLINIMIX E 5/15) 2,000 ML with MULTIVITAMIN 10 ML, TRACE ELEMENTS 1 ML IV SCH ×3 (19:03)
[2022-04-20] MEDS: ATORVASTATIN 10 MG TABLET PO SCH (21:01)
[2022-04-20] MEDS: ZINC OXIDE 20% OINT 30 GM TUBE TOP PRN (23:45)
[2022-04-21] MEDS: ZINC OXIDE 20% OINT 30 GM TUBE TOP PRN ×5 (00:50→07:02)
[2022-04-21] MEDS: SODIUM CHLORIDE FLUSH 0.9% 10 ML SYRINGE IVP SCH ×2 (02:30→16:49)
[2022-04-21] MEDS: PIPERACILLIN/TAZOBACTAM 3.375 GM in SODIUM CHLORIDE 0.9% MINIBAG 100 ML IV SCH ×3 (02:30→16:48)
[2022-04-21] MEDS: PANTOPRAZOLE 40 MG TABLET PO SCH (05:18)
[2022-04-21] MEDS: CARBOXYMETHYLCELLULOSE OPHTH DROPS EACHEYE SCH ×3 (05:18→21:17)
[2022-04-21] MEDS: WITCH HAZEL/GLYCERIN 1 PAD TOP PRN (05:19)
[2022-04-21 06:34] LABS: BASOPHILS % (AUTO) 0.7 %; EOSINOPHILS % (AUTO) 2.2 %; LYMPHOCYTES % (AUTO) 25.4 %; MEAN CORPUSCULAR HEMOGLOBIN 31.8 pg (27.0-31.0); MEAN CORPUSCULAR HGB CONC 32.7 g/dL (32.0-36.0); MEAN CORPUSCULAR VOLUME 97.5 fL (80.0-94.0); MONOCYTES % (AUTO) 8.2 %; NEUTROPHILS % (AUTO) 62.8 %; RED BLOOD COUNT 2.01 10^6/uL (4.70-6.10); RED CELL DISTRIBUTION WIDTH 19.2 % (12.0-15.0)
[2022-04-21 06:38] LABS: HGB - HEMOGLOBIN 6.4 g/dL (14.0-18.0); WHITE BLOOD COUNT 1.3 x10^3/uL (4.8-10.8)
[2022-04-21 06:39] LABS: ABNORMAL LYMPHS % (MANUAL) 0 %; BAND NEUTROPHILS % (MANUAL) 0 %; HCT - HEMATOCRIT 19.6 % (42.0-52.0); PLT - PLATELET COUNT 27 10^3/uL (130-450)
[2022-04-21 06:47] LABS: CREATININE 0.7 mg/dL (0.6-1.2); POTASSIUM 3.1 mmol/L (3.5-5.0)
[2022-04-21 06:50] LABS: LYMPHOCYTES # (MANUAL) 0.5 10^3/uL (1.5-3.5); LYMPHOCYTES % (MANUAL) 36 %; MONOCYTES # (MANUAL) 0.1 10^3/uL (0.0-1.0); NEUTROPHILS # (MANUAL) 0.7 10^3/uL (1.5-6.6)
[2022-04-21 06:52] LABS: DIFFERENTIAL COMMENT MANUAL DIFFERENTIAL; PLATELET ESTIMATE, MANUAL DECREASED (<130,000) (NORMAL); PLATELET MORPHOLOGY NORMAL APPEARANCE (NORMAL); WBC MORPHOLOGY (MULTIPLE) NORMAL APPEARANCE (NORMAL)
[2022-04-21] MEDS: TAMSULOSIN 0.4 MG CAPSULE PO SCH (08:03)
[2022-04-21] MEDS: CALCIUM CARB (OYSTER SHELL) 500 MG TABLET PO SCH (08:03)
[2022-04-21] MEDS: CHOLECALCIFEROL 25 MCG TABLET PO SCH (08:04)
[2022-04-21] MEDS: predniSONE 20 MG TABLET PO SCH (08:04)
[2022-04-21] MEDS: AMIODARONE 200 MG TABLET PO SCH (08:04)
[2022-04-21] MEDS: OFLOXACIN 0.3% OPHTH DROPS LEFTEYE SCH (08:05)
[2022-04-21] MEDS: FLUTICASONE NASAL SPRAY NAS SCH (08:05)
[2022-04-21] MEDS: LIDOCAINE OINTMENT 5% 35.44 GM TUBE TOP SCH ×4 (08:06→20:02)
[2022-04-21] MEDS: prednisoLONE 1% OPHTH DROPS 75 DROPS/5 ML BOTTLE LEFTEYE SCH (08:06)
[2022-04-21] MEDS: INSULIN LISPRO 300 UNIT/3 ML PEN SUBQ SCH ×4 (08:08→21:06)
[2022-04-21] MEDS: FUROSEMIDE 20 MG/2 ML VIAL IVP SCH (10:58)
[2022-04-21] MEDS ORDERED: TPN (CLINIMIX E 5/15) 2,000 ML with MULTIVITAMIN 10 ML, TRACE ELEMENTS 1 ML IV SCH ×3 (12:26)
--- NOTE | 2022-04-21 16:21 | PROVIDER PROGRESS NOTE ---
Assessment/Plan - Problem List (1) Sigmoid diverticulitis Assessment/Plan: He had presented with mild hematochezia on admission. Had C. difficile colitis. C. difficile colitis was treated. Then he had more hematochezia several days ago and CT confirmed focal segmental diverticulitis. At that point in time, we had him on budesonide as requested by Dr. Maradiaga on the bone marrow team. That was stopped and we started him on single agent Zosyn. Today I put a call out to and my charge nurse also called them, and there are no beds for him to be transferred today. I then called [facility] and was informed that once we have an accepting facility, we must wait for a bed to open at that facility, thus he is not on a list with [facility]. I informed the patient that it looks like there are no open beds for him to be accepted in transfer today. 2. Anemia. His CBC is carefully being watched to see if he needs transfusion. The hemoglobin keeps dropping due to his on and off hematuria and his significant blood loss from diverticuli. I reviewed all labs today. He has needed blood transfusions approximately every third to every second day. Plan: Transfuse for Hgb <7 3. Leg edema He has gained 20 pounds since TPN was started, on exam he now has severe leg edema with tense skin Plan: We will start IV Lasix daily. Monitor I's and O's. Monitor BMP daily and magnesium intermittently 4. C. difficile colitis. Completed 11 days of oral vancomycin on April 15. 5. Acute hemorrhagic cystitis He presented with hematuria, needed a Juarez and had CBI for 3 days. The Juarez was removed. His Juarez needed to be reinserted and remains in place due to on and off hematuria. Plan: Urol input awaited, hopefully when transferred to a center with Urology 6. Pancytopenia This continue. We follow CBC daily. We learned early in this admission, from Dr Danyelle Ortiz, his Oncologist, that pancytopenia is his new normal 7. Thrombocytopenia This is chronic. He has needed platelet transfusions about every third day. Plan: We follow CBC daily, transfuse plts if < 30 8. Leukopenia. 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 As of April 11, oncology concluded that he would benefit from higher level of care transfer for. We have called several facilities. [facility] accepted him. Dr Amador Brooks has been the physician accepting him. We are waiting for bed assignment. 9. Sacral decubitus ulcer This is located more on the right buttock. Stage II. Getting Desitin, offloading turning and repositioning, and TPN was started to help him with calories and protein to heal. 10. Severe protein calorie malnutrition. TPN is ongoing. 11. Chronic diastolic heart failure. He remains intravascularly euvolemic. However he is developing leg anasarca from TPN fluids. Plan: watch I's and O's and clinical exam. 12. Orthostatic hypotension. Hydrocortisone (as stress dose steroids initially) has been stopped, he is now on his regular prednisone of 10 mg [address] day [address] Dr. Maradiaga's recommendation. Blood pressures appear stable since April 08. 13. Paroxysmal A-fib is stable. Not on anticoagulation because of bleeding 14. History of DVT and PE. Not on anticoagulation. May need a Goran filter but we do not do that her e. 15. Chronic kidney disease All labs were reviewed Renal function is stable. 16. Hypokalemia All labs were reviewed. He needs intermittent potassium supplements even on top of what is in his TPN 17. COVID-positive status. Asymptomatic. 18. Anal lesion. Biopsy showed a benign pathology - Current Meds Current Meds: Current Medications Generic Name Dose Route Start Last Admin Trade Name Freq PRN Reason Stop Dose Admin Acetaminophen 650 mg 04/02/22 16:39 04/19/22 14:26 Acetaminophen 325 Mg Tablet PO 650 mg Q4HR PRN Administration Pain 1 to 4, or Fever Amiodarone HCl 100 mg 04/08/22 09:00 04/21/22 08:04 Amiodarone 200 Mg Tablet PO 100 mg DAILY JUJU Administration Atorvastatin Calcium 10 mg 04/04/22 21:00 04/20/22 21:01 Atorvastatin 10 Mg Tablet PO 10 mg 2100 JUJU Administration Calcium Carbonate/Glycine 500 mg 04/04/22 09:00 04/21/22 08:03 Calcium Carb (Oyster Shell) 500 Mg Tablet PO 500 mg 0900 JUJU Administration Calcium Carbonate/Glycine 500 mg 04/04/22 18:17 04/15/22 21:08 Calcium Carbonate Chew 500 Mg Tablet PO 500 mg TID PRN Administration INDIGESTION Carboxymethylcellulose 1 drops 04/09/22 11:22 04/21/22 14:05 Carboxymethylcellulose Ophth Drops EACHEYE 1 drops TID [facility] Administration Cholecalciferol 50 mcg 04/04/22 17:00 04/21/22 08:04 Cholecalciferol 25 Mcg Tablet PO 50 mcg DAILY JUJU Administration Fluticasone Propionate 1 sprays 04/05/22 09:00 04/21/22 08:05 Fluticasone Nasal [place] SHENA 1 spr DAILY JUJU Administration Furosemide 20 mg 04/21/22 11:00 04/21/22 10:58 Furosemide 20 Mg/2 Ml Vial IVP 20 mg DAILY JUJU Administration Heparin Sodium (Beef Lung) 30 - 50 unit 04/03/22 16:08 04/04/22 08:25 Heparin Flush 50 Units/5 Ml Syringe IVP 50 unit PRN PRN Administration Port Protocol (<24 hours) Hydromorphone HCl 4 mg 04/19/22 00:06 04/20/22 00:38 Hydromorphone 2 Mg Tablet PO 4 mg Q4HR PRN Administration Severe Pain Fat Emulsion Intravenous 250 mls @ 21 mls/hr 04/08/22 19:00 04/21/22 07:00 Intralipid 20% IV Infused 1900 JUJU Infusion Sodium Chloride 1,000 mls @ 30 mls/hr 04/16/22 01:00 04/21/22 12:58 Normal Saline 0.9% IV 0 mls/hr Q24H JUJU Infusion TKO Piperacillin Sod/Tazobactam 100 mls @ 200 mls/hr 04/17/22 20:00 04/21/22 08:35 Sod 3.375 gm/ Sodium Chloride IV Infused Q6H [facility] Infusion Insulin Human Lispro 1 - 9 unit 04/15/22 08:00 04/21/22 12:25 Insulin Lispro 300 Unit/3 Ml Pen SUBQ 1 unit 0800,1200,1700,2100 [facility] Administration Protocol Lidocaine 1 applic 04/15/22 13:00 04/21/22 12:24 Lidocaine Ointment 5% 35.44 Gm Tube TOP 1 applic QID JUJU Administration Multi-Ingredient Ointment 1 applic 04/04/22 10:11 04/21/22 07:02 Zinc Oxide 20% Oint 30 Gm Tube TOP 1 applic PRN PRN Administration Skin Care Ofloxacin 1 drops 04/04/22 09:00 04/21/22 08:05 Ofloxacin 0.3% Ophth Drops LEFTEYE 1 drops DAILY JUJU Administration Ondansetron HCl 4 mg 04/02/22 16:39 04/05/22 02:20 Ondansetron 4 Mg/2 Ml Vial IVP 4 mg Q6HR PRN Administration Nausea / Vomiting Oxycodone HCl 5 mg 04/05/22 08:52 04/19/22 19:10 Oxycodone 5 Mg Tablet PO 5 mg Q6HR PRN Administration Pain 5 to 7 Pantoprazole Sodium 40 mg 04/04/22 19:00 04/21/22 05:18 Pantoprazole 40 Mg Tablet PO 40 mg QDAC JUJU Administration Prednisolone 1 drops 04/04/22 09:00 04/21/22 08:06 Prednisolone 1% Ophth Drops 75 Drops/5 Ml Bottle LEFTEYE 1 drops DAILY JUJU Administration Prednisone 10 mg 04/16/22 08:00 04/21/22 08:04 Prednisone 20 Mg Tablet PO 10 mg DAILYWM JUJU Administration Sodium Chloride 10 ml 04/02/22 16:39 04/19/22 06:29 Sodium Chloride Flush 0.9% 10 Ml Syringe IVP 30 ml PRN PRN Administration NEEDED PER PROVIDER ORDERS Sodium Chloride 10 ml 04/02/22 17:00 04/21/22 02:30 Sodium Chloride Flush 0.9% 10 Ml Syringe IVP 10 ml 0100,0900,1700 JUJU Administration Tamsulosin HCl 0.4 mg 04/08/22 08:02 04/21/22 08:03 Tamsulosin 0.4 Mg Capsule PO 0.4 mg DAILY JUJU Administration Throat Lozenges 1 lozenge 04/19/22 02:53 04/19/22 05:37 Benzocaine/Menthol Lozenge MM 1 lozenge Q2HR PRN Administration Throat pain [place]/Glycerin 1 pad 04/03/22 15:28 04/21/22 05:19 Witch [place]/Glycerin 1 Pad TOP 1 pad PRN PRN Administration ITCHING Zinc Oxide 113 gm 04/06/22 09:26 04/20/22 09:30 Cod Liver Oil/Zinc Oxide 113 Gm Tube TOP 1 applic PRN PRN Administration Skin Care - Lab Result Fish Bone Diagrams: 04/24/22 08:35 04/24/22 08:35 - Additional Planning My Orders: My Active Orders 04/21/22 10:46 Transfuse Platelet Pheresis Pk [RC] .ONCE 04/21/22 11:00 FUROSEMIDE INJ 20mg VIAL [LASIX INJ 20mg VIAL] 20 mg IVP DAILY 04/21/22 19:01 Multivitamin [Infuvite] 10 ml Trace Elements [Tralement Vial] 1 ml Potassium Chloride Inj [Potassium Chloride] 30 meq TPN (Clinimix E 5/15) [Clinimix E 5%- 15% Solution] 2,000 ml IV 1900 Subjective - Subjective Patient Reports: Resting Comfortably Nursing Reports: Other (Still has maroon stools) Objective Vital Signs: Vital Signs - 24 hr 04/20/22 04/20/22 04/21/22 16:21 23:38 08:19 Temperature 36.9 C 36.7 C 36.6 C Heart Rate [ 91 85 88 Brachial] Respiratory 16 18 16 Rate Blood Pressure [Left Brachial artery] Blood Pressure 120/66 126/66 117/59 L [Right Brachial artery] O2 Saturation 99 98 95 04/21/22 04/21/22 04/21/22 12:47 13:01 13:06 Temperature 36.3 C L 36.4 C L Heart Rate [ 95 94 97 Brachial] Respiratory 20 20 20 Rate Blood Pressure [Left Brachial artery] Blood Pressure 103/57 L 109/60 109/57 L [Right Brachial artery] O2 Saturation 96 98 98 04/21/22 04/21/22 04/21/22 15:31 15:56 16:17 Temperature 36.6 C 36.6 C 36.5 C Heart Rate [ 88 88 83 Brachial] Respiratory 16 Rate Blood Pressure 131/54 H [Left Brachial artery] Blood Pressure 113/54 L 118/63 [Right Brachial artery] O2 Saturation 97 97 97 Oxygen O2 Source Room air I&O (Last 24 Hrs): Intake and Output Totals x24h 04/19/22 04/20/22 04/21/22 23:59 23:59 23:59 Intake Total 3007.000 3673.5 2839.0 Output Total 4050 5600 5100 Balance -1043.000 -1926.5 -2261.0 General: Alert, Other (Appears tired, naps alot) HEENT: Mucous membr. moist/pink, Other (L eye patched) Neck: Supple Neuro: Alert, Non Focal Cardiovascular: Regular rate Respiratory: No respiratory distress Abdomen: Soft, No tenderness Extremities: Other (3+ edema of legs to buttocks, edema is posterior (dependant) on his thighs) - Results Results: Laboratory Results WBC 1.3 x10^3/uL (4.8-10.8) L* 04/21/22 06:25 RBC 2.01 10^6/uL (4.70-6.10) L 04/21/22 06:25 Hgb 6.4 g/dL (14.0-18.0) L* 04/21/22 06:25 Hct 19.6 % (42.0-52.0) L* 04/21/22 06:25 MCV 97.5 fL (80.0-94.0) H 04/21/22 06:25 MCH 31.8 pg (27.0-31.0) H 04/21/22 06:25 MCHC 32.7 g/dL (32.0-36.0) 04/21/22 06:25 RDW 19.2 % (12.0-15.0) H 04/21/22 06:25 Plt Count 27 10^3/uL (130-450) L* 04/21/22 06:25 MPV 11.0 fL (7.4-11.4) 04/21/22 06:25 Neut # (Auto) Not Reportable 04/21/22 06:25 Lymph # (Auto) Not Reportable 04/21/22 06:25 [place] # (Auto) Not Reportable 04/21/22 06:25 Eos # (Auto) Not Reportable 04/21/22 06:25 Baso # (Auto) Not Reportable 04/21/22 06:25 Absolute Nucleated RBC Not Reportable 04/21/22 06:25 Total Counted 100 04/21/22 06:25 Band Neuts % (Manual) 0 % (0-10) 04/21/22 06:25 Reactive Lymphs % (Man) 4 % 04/18/22 06:50 Abnorm Lymph % (Manual) 0 % 04/21/22 06:25 Metamyelocytes % 2 % (-0) H 04/19/22 06:35 Myelocytes % 1 % (-0) H 04/12/22 05:25 Nucleated RBC % Not Reportable 04/21/22 06:25 Neutrophils # (Manual) 0.7 10^3/uL (1.5-6.6) L 04/21/22 06:25 Lymphocytes # (Manual) 0.5 10^3/uL (1.5-3.5) L 04/21/22 06:25 Monocytes # (Manual) 0.1 10^3/uL (0.0-1.0) 04/21/22 06:25 Eosinophils # (Manual) 0.0 10^3/uL (0-0.7) 04/21/22 06:25 Basophils # (Manual) 0.0 10^3/uL (0-0.1) 04/21/22 06:25 Nucleated RBCs 1 % 04/16/22 05:07 Differential Comment MANUAL DIFFERENTIAL 04/21/22 06:25 Manual Slide Review Indicated 04/20/22 09:07 WBC Morphology NORMAL APPEARANCE (NORMAL) 04/21/22 06:25 Platelet Estimate DECREASED (<130,000) (NORMAL) 04/21/22 06:25 Platelet Morphology NORMAL APPEARANCE (NORMAL) 04/21/22 06:25 RBC Morph Micro Appear 2+ ANISOCYTOSIS (NORMAL) 1+ HYPOCHROMASIA (NORMAL) 04/21/22 06:25 RBC Morph Micro Appear 2+ ANISOCYTOSIS (NORMAL) 1+ HYPOCHROMASIA (NORMAL) 04/21/22 06:25 PT 12.8 secs (9.9-12.6) H 04/02/22 05:49 INR 1.2 (0.8-1.2) 04/02/22 05:49 Sodium 137 mmol/L (135-145) 04/21/22 06:25 Potassium 3.1 mmol/L (3.5-5.0) L 04/21/22 06:25 Chloride 106 mmol/L (101-111) 04/21/22 06:25 Carbon Dioxide 24 mmol/L (21-32) 04/21/22 06:25 Anion Gap 7.0 (6-13) 04/21/22 06:25 BUN 16 mg/dL (6-20) 04/21/22 06:25 Creatinine 0.7 mg/dL (0.6-1.2) 04/21/22 06:25 Estimated GFR (MDRD) 111 (>89) 04/21/22 06:25 Glucose 128 mg/dL (70-100) H 04/21/22 06:25 Calcium 7.0 mg/dL (8.5-10.3) L 04/21/22 06:25 Phosphorus 3.0 mg/dL (2.5-4.6) 04/19/22 06:35 Magnesium 1.9 mg/dL (1.7-2.8) 04/19/22 06:35 Total Bilirubin 0.6 mg/dL (0.2-1.0) 04/19/22 06:35 AST 19 IU/L (10-42) 04/19/22 06:35 ALT 24 IU/L (10-60) 04/19/22 06:35 Alkaline Phosphatase 50 IU/L (42-121) 04/19/22 06:35 Total Protein 3.6 g/dL (6.7-8.2) L 04/19/22 06:35 Albumin 1.5 g/dL (3.2-5.5) L 04/19/22 06:35 Globulin 2.1 g/dL (2.1-4.2) 04/19/22 06:35 Albumin/Globulin Ratio 0.7 (1.0-2.2) L 04/19/22 06:35 Prealbumin 12 mg/dL (18-45) L 04/19/22 06:35 Triglycerides 86 mg/dL (-149) 04/19/22 06:35 Lipase 21 U/L (22-51) L 04/02/22 05:49 Urine Color RED/BLOODY 04/02/22 11:40 Urine Clarity TURBID (CLEAR) 04/02/22 11:40 Urine pH 6.0 PH (5.0-7.5) 04/02/22 11:40 Ur Specific [place] 1.025 (1.002-1.030) 04/02/22 11:40 Urine Protein >=300 mg/dL (NEGATIVE) H 04/02/22 11:40 Urine Glucose (UA) NEGATIVE mg/dL (NEGATIVE) 04/02/22 11:40 Urine Ketones NEGATIVE mg/dL (NEGATIVE) 04/02/22 11:40 Urine Occult Blood LARGE (NEGATIVE) H 04/02/22 11:40 Urine Nitrite NEGATIVE (NEGATIVE) 04/02/22 11:40 Urine Bilirubin NEGATIVE (NEGATIVE) 04/02/22 11:40 Urine Urobilinogen 0.2 (NORMAL) E.U./dL (NORMAL) 04/02/22 11:40 Ur Leukocyte Esterase NEGATIVE (NEGATIVE) 04/02/22 11:40 Urine RBC TNTC /HPF (0-5) H 04/02/22 11:40 Urine WBC 6-10 /HPF (0-3) H 04/02/22 11:40 Ur Squamous Epith Cells NONE SEEN (<= Few) 04/02/22 11:40 Urine Bacteria None Seen /HPF (None Seen) 04/02/22 11:40 Urine Yeast PRESENT 04/02/22 11:40 Ur Microscopic Review INDICATED 04/02/22 11:40 Urine Culture Comments NOT INDICATED 04/02/22 11:40 Stl C. diff Tox B Gene POSITIVE (NEGATIVE) A* 04/05/22 13:50 SARS-CoV-2 (PCR) DETECTED A 04/12/22 15:45 Blood Type AB POSITIVE 04/19/22 08:20 Antibody Screen NEGATIVE 04/19/22 08:20 Crossmatch IS Only See Detail 04/19/22 08:20 - Procedures Procedures: Procedures TRANSFUSE NONAUT PLATELETS IN PERIPH VEIN, PERC (06/24/21)
[2022-04-21] MEDS: TPN (CLINIMIX E 5/15) 2,000 ML with MULTIVITAMIN 10 ML, TRACE ELEMENTS 1 ML, POTASSIUM ... IV SCH ×4 (19:08)
[2022-04-21] MEDS: FAT EMULSION 20% 250 ML IV SCH (19:10)
[2022-04-21] MEDS: ATORVASTATIN 10 MG TABLET PO SCH (20:08)
[2022-04-21] MEDS: ACETAMINOPHEN 325 MG TABLET PO PRN (21:22)
[2022-04-22] MEDS: PIPERACILLIN/TAZOBACTAM 3.375 GM in SODIUM CHLORIDE 0.9% MINIBAG 100 ML IV SCH ×4 (00:16→18:23)
[2022-04-22] MEDS: SODIUM CHLORIDE FLUSH 0.9% 10 ML SYRINGE IVP SCH ×4 (00:16→21:19)
[2022-04-22] MEDS: HYDROmorphone 2 MG TABLET PO PRN ×3 (05:15→23:56)
[2022-04-22 05:50] LABS: ALBUMIN 1.7 g/dL (3.2-5.5); ALBUMIN/GLOBULIN RATIO 0.8 (1.0-2.2); BILIRUBIN,TOTAL 0.4 mg/dL (0.2-1.0); CREATININE 0.7 mg/dL (0.6-1.2); MAGNESIUM 1.8 mg/dL (1.7-2.8); PHOSPHORUS 3.2 mg/dL (2.5-4.6); TOTAL PROTEIN 3.9 g/dL (6.7-8.2)
[2022-04-22] MEDS ORDERED: POTASSIUM CHLORIDE 20 MEQ TABLET PO ONE (05:59)
[2022-04-22] MEDS: SODIUM CHLORIDE 0.9% 1,000 ML IV SCH ×2 (06:46→07:47)
[2022-04-22] MEDS: PANTOPRAZOLE 40 MG TABLET PO SCH (06:46)
[2022-04-22] MEDS: CARBOXYMETHYLCELLULOSE OPHTH DROPS EACHEYE SCH ×3 (06:50→21:17)
[2022-04-22 07:42] LABS: EOSINOPHILS # (AUTO) 0.1 10^3/uL (0.0-0.7); EOSINOPHILS % (AUTO) 4.2 %; LYMPHOCYTES # (AUTO) 0.3 10^3/uL (1.5-3.5); LYMPHOCYTES % (AUTO) 25.4 %; MEAN CORPUSCULAR HEMOGLOBIN 30.7 pg (27.0-31.0); MEAN CORPUSCULAR HGB CONC 32.5 g/dL (32.0-36.0); MEAN CORPUSCULAR VOLUME 94.6 fL (80.0-94.0); MEAN PLATELET VOLUME 10.7 fL (7.4-11.4); MONOCYTES # (AUTO) 0.1 10^3/uL (0.0-1.0); MONOCYTES % (AUTO) 8.5 %; NEUTROPHILS # (AUTO) 0.7 10^3/uL (1.5-6.6); NEUTROPHILS % (AUTO) 61.1 %; PLT - PLATELET COUNT 44 10^3/uL (130-450); RED BLOOD COUNT 2.05 10^6/uL (4.70-6.10); RED CELL DISTRIBUTION WIDTH 20.7 % (12.0-15.0)
[2022-04-22 07:55] LABS: HCT - HEMATOCRIT 19.4 % (42.0-52.0); HGB - HEMOGLOBIN 6.3 g/dL (14.0-18.0); WHITE BLOOD COUNT 1.2 x10^3/uL (4.8-10.8)
[2022-04-22 07:56] LABS: SLIDE REVIEW? Indicated
[2022-04-22] MEDS ORDERED: POTASSIUM CHLORIDE 10 MEQ CAPSULE PO ONE (08:00)
[2022-04-22 08:01] LABS: PLATELET ESTIMATE, MANUAL DECREASED (<130,000) (NORMAL); PLATELET MORPHOLOGY NORMAL APPEARANCE (NORMAL)
[2022-04-22] MEDS: FUROSEMIDE 20 MG/2 ML VIAL IVP SCH (08:31)
[2022-04-22] MEDS: AMIODARONE 200 MG TABLET PO SCH (08:31)
[2022-04-22] MEDS: predniSONE 20 MG TABLET PO SCH (08:32)
[2022-04-22] MEDS: CHOLECALCIFEROL 25 MCG TABLET PO SCH (08:33)
[2022-04-22] MEDS: TAMSULOSIN 0.4 MG CAPSULE PO SCH (08:33)
[2022-04-22] MEDS: CALCIUM CARB (OYSTER SHELL) 500 MG TABLET PO SCH (08:33)
[2022-04-22] MEDS: INSULIN LISPRO 300 UNIT/3 ML PEN SUBQ SCH ×4 (08:34→21:23)
[2022-04-22] MEDS: LIDOCAINE OINTMENT 5% 35.44 GM TUBE TOP SCH ×4 (08:35→21:18)
[2022-04-22] MEDS: FLUTICASONE NASAL SPRAY NAS SCH (08:35)
[2022-04-22] MEDS: ZINC OXIDE 20% OINT 30 GM TUBE TOP PRN ×2 (08:35→21:18)
[2022-04-22] MEDS: OFLOXACIN 0.3% OPHTH DROPS LEFTEYE SCH (08:36)
[2022-04-22] MEDS: prednisoLONE 1% OPHTH DROPS 75 DROPS/5 ML BOTTLE LEFTEYE SCH (08:36)
--- NOTE | 2022-04-22 14:22 | PROVIDER PROGRESS NOTE ---
Assessment/Plan - Problem List (1) Diverticular hemorrhage Assessment/Plan: Presented as hematochezia on admission. Had C. difficile colitis. Was treated with po Vanco. Then he had even more hematochezia and CT confirmed focal segmental diverticulitis. At that point in time we started him on budesonide as requested by Dr. Maradiaga on the bone marrow team, which was later stopped and started him on single agent Zosyn. He has needed blood transfusions daily most recently ( ddays). Today I updated the transfer center on this problem and his colonic bleeding and more frequent blood transfusion needs. When I put today's call out to there are no beds for him to be transferred into today. 2. Anemia. His CBC is carefully being watched to see when needs transfusion. I reviewed all labs. Plan: Today he will again be transfused for Hgb <7 3. Leg edema This started slowly since he was put on TPN to get calories, he has gained 20 pounds since that time. Yesterday Lasix 20 mg IV daily was started Plan: Continue to follow I's and O 4. Acute hemorrhagic cystitis He continues with a re-inserted [place]. 5 Pancytopenia Per discussion with his oncologist Dr. Danyelle Ortiz earlier this admission, this is his new normal however it has been worsened by blood loss in the urine and from his colon 6. Thrombocytopenia Per discussion with his oncologist Dr. Danyelle Ortiz earlier this admission, this is his new normal Plan: Platelet transfusions if platelet count goes below 30 7. 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 As of April 11, Oncology concluded that he would benefit from higher level of care transfer for. We called several facilities. [facility] excepted him. Dr Amador Brooks has been the physician accepting him. We are waiting for bed assignment. 8. Sacral decubitus ulcer It is located more on the right buttock. Stage II. Getting Desitin, offl oading, and TPN to help him nutrition 9. Severe protein calorie malnutrition. TPN ongoing. 10. Chronic diastolic heart failure. He developed anasarca from TPN. Lasix started 11. Orthostatic hypotension. He is now on his regular prednisone of [address] day [address] Maradiaga's recommendation. Blood pressures appear stable since April 08. 12. Paroxysmal A-fib HR is stable. Not on anticoagulation because of bleeding 10. History of DVT and PE. Not on anticoagulation. May need a [place] filter but we do not do that here 11. Chronic kidney disease stable. Labs all reviewed. Renal labs have been stable. 12. Hypokalemia He is getting potassium in his TPN. The potassium amount was increased yesterday. Plan: We will also give oral potassium 13. COVID-positive Asymptomatic. 14. Anal lesion. Benign pathology on biopsy. 15. C. difficile colitis. Completed 11 days of oral vancomycin on April 15. - Current Meds Current Meds: Current Medications Generic Name Dose Route Start Last Admin Trade Name Freq PRN Reason Stop Dose Admin Acetaminophen 650 mg 04/02/22 16:39 04/21/22 21:22 Acetaminophen 325 Mg Tablet PO 650 mg Q4HR PRN Administration Pain 1 to 4, or Fever Amiodarone HCl 100 mg 04/08/22 09:00 04/22/22 08:31 Amiodarone 200 Mg Tablet PO 100 mg DAILY JUJU Administration Atorvastatin Calcium 10 mg 04/04/22 21:00 04/21/22 20:08 Atorvastatin 10 Mg Tablet PO 10 mg 2100 JUJU Administration Calcium Carbonate/Glycine 500 mg 04/04/22 09:00 04/22/22 08:33 Calcium Carb (Oyster Shell) 500 Mg Tablet PO 500 mg 0900 JUJU Administration Calcium Carbonate/Glycine 500 mg 04/04/22 18:17 04/15/22 21:08 Calcium Carbonate Chew 500 Mg Tablet PO 500 mg TID PRN Administration INDIGESTION Carboxymethylcellulose 1 drops 04/09/22 11:22 04/22/22 06:50 Carboxymethylcellulose Ophth Drops EACHEYE 1 drops TID JUJU Administration Cholecalciferol 50 mcg 04/04/22 17:00 04/22/22 08:33 Cholecalciferol 25 Mcg Tablet PO 50 mcg DAILY JUJU Administration Fluticasone Propionate 1 sprays 04/05/22 09:00 04/22/22 08:35 Fluticasone Nasal Tiline SHENA 1 spr DAILY JUJU Administration Furosemide 20 mg 04/21/22 11:00 04/22/22 08:31 Furosemide 20 Mg/2 Ml Vial IVP 20 mg DAILY JUJU Administration Heparin Sodium (Beef Lung) 30 - 50 unit 04/03/22 16:08 04/04/22 08:25 Heparin Flush 50 Units/5 Ml Syringe IVP 50 unit PRN PRN Administration Port Protocol (<24 hours) Hydromorphone HCl 4 mg 04/19/22 00:06 04/22/22 05:15 Hydromorphone 2 Mg Tablet PO 4 mg Q4HR PRN Administration Severe Pain Fat Emulsion Intravenous 250 mls @ 21 mls/hr 04/08/22 19:00 04/21/22 19:10 Intralipid 20% IV 21 mls/hr 1900 JUJU Administration Multivitamins 10 ml/ TRACE 2,026 mls @ 70 mls/hr 04/21/22 19:01 04/21/22 19:08 ELEMENTS 1 ml/ Potassium IV 70 mls/hr Chloride 30 meq/ Amino Ac/ 1900 JUJU Administration Electrol/Dextrose/Calcium Protocol Piperacillin Sod/Tazobactam 100 mls @ 200 mls/hr 04/22/22 00:00 04/22/22 06:47 Sod 3.375 gm/ Sodium Chloride IV 200 mls/hr Q6H JUJU Administration Insulin Human Lispro 1 - 9 unit 04/15/22 08:00 04/22/22 08:34 Insulin Lispro 300 Unit/3 Ml Pen SUBQ Not Given 0800,1200,1700,2100 [facility] Protocol Lidocaine 1 applic 04/15/22 13:00 04/22/22 08:35 Lidocaine Ointment 5% 35.44 Gm Tube TOP 1 applic QID JUJU Administration Multi-Ingredient Ointment 1 applic 04/04/22 10:11 04/22/22 08:35 Zinc Oxide 20% Oint 30 Gm Tube TOP 1 applic PRN PRN Administration Skin Care Ofloxacin 1 drops 04/04/22 09:00 04/22/22 08:36 Ofloxacin 0.3% Ophth Drops LEFTEYE 1 drops DAILY JUJU Administration Ondansetron HCl 4 mg 04/02/22 16:39 04/05/22 02:20 Ondansetron 4 Mg/2 Ml Vial IVP 4 mg Q6HR PRN Administration Nausea / Vomiting Oxycodone HCl 5 mg 04/05/22 08:52 04/19/22 19:10 Oxycodone 5 Mg Tablet PO 5 mg Q6HR PRN Administration Pain 5 to 7 Pantoprazole Sodium 40 mg 04/04/22 19:00 04/22/22 06:46 Pantoprazole 40 Mg Tablet PO 40 mg QDAC JUJU Administration Prednisolone 1 drops 04/04/22 09:00 04/22/22 08:36 Prednisolone 1% Ophth Drops 75 Drops/5 Ml Bottle LEFTEYE 1 drops DAILY JUJU Administration Prednisone 10 mg 04/16/22 08:00 04/22/22 08:32 Prednisone 20 Mg Tablet PO 10 mg DAILYWM JUJU Administration Sodium Chloride 10 ml 04/02/22 16:39 04/19/22 06:29 Sodium Chloride Flush 0.9% 10 Ml Syringe IVP 30 ml PRN PRN Administration NEEDED PER PROVIDER ORDERS Sodium Chloride 10 ml 04/02/22 17:00 04/22/22 11:30 Sodium Chloride Flush 0.9% 10 Ml Syringe IVP Not Given 0100,0900,1700 JUJU Tamsulosin HCl 0.4 mg 04/08/22 08:02 04/22/22 08:33 Tamsulosin 0.4 Mg Capsule PO 0.4 mg DAILY JUJU Administration Throat Lozenges 1 lozenge 04/19/22 02:53 04/19/22 05:37 Benzocaine/Menthol Lozenge MM 1 lozenge Q2HR PRN Administration Throat pain Witch [place]ase[place]/Glycerin 1 pad 04/03/22 15:28 04/21/22 05:19 Witch [place]/Glycerin 1 Pad TOP 1 pad PRN PRN Administration ITCHING Zinc Oxide 113 gm 04/06/22 09:26 04/20/22 09:30 Cod Liver Oil/Zinc Oxide 113 Gm Tube TOP 1 applic PRN PRN Administration Skin Care - Lab Result Fish Bone Diagrams: 04/22/22 05:20 04/22/22 05:20 - Additional Planning My Orders: My Active Orders 04/21/22 19:01 Multivitamin [Infuvite] 10 ml Trace Elements [Tralement Vial] 1 ml Potassium Chloride Inj [Potassium Chloride] 30 meq TPN (Clinimix E 5/15) [Clinimix E 5%-15% Solution] 2,000 ml IV 1900 04/22/22 10:36 Transfuse RBCs Leukoreduced [RC] .ONCE 04/23/22 05:00 CBC - COMP BLD CT W/AUTO DIFF [HEME] DAILYLAB Subjective - Subjective Patient Reports: Other (Feels the same, weak, wants to be transferred to a larger facility) Objective Vital Signs: Vital Signs - 24 hr 04/21/22 04/21/22 04/21/22 15:31 15:56 16:17 Temperature 36.6 C 36.6 C 36.5 C Heart Rate [ 88 88 83 Brachial] Heart Rate [ Monitoring electrodes] Respiratory 16 Rate Blood Pressure 131/54 H [Left Brachial artery] Blood Pressure 113/54 L 118/63 [Right Brachial artery] O2 Saturation 97 97 97 04/21/22 04/21/22 04/22/22 16:34 16:44 00:04 Temperature 36.5 C 36.5 C 36.6 C Heart Rate [ 83 77 Brachial] Heart Rate [ 83 Monitoring electrodes] Respiratory 18 16 16 Rate Blood Pressure [Left Brachial artery] Blood Pressure 112/59 L 117/63 123/64 [Right Brachial artery] O2 Saturation 97 97 95 04/22/22 04/22/22 04/22/22 07:55 13:44 13:49 Temperature 36.3 C L 37 C 37.0 C Heart Rate [ 84 76 Brachial] Heart Rate [ 84 Monitoring electrodes] Respiratory 19 16 16 Rate Blood Pressure [Left Brachial artery] Blood Pressure 105/54 L 107/67 126/65 [Right Brachial artery] O2 Saturation 97 100 Oxygen O2 Source Room air I&O (Last 24 Hrs): Intake and Output Totals x24h 04/20/22 04/21/22 04/22/22 23:59 23:59 23:59 Intake Total 3673.5 3325.5 607.5 Output Total 5600 5975 4700 Balance -1926.5 -2649.5 -4092.5 General: Alert, Oriented x3 HEENT: Mucous membr. moist/pink Neck: Supple Neuro: Alert Cardiovascular: No murmurs Respiratory: No respiratory distress Abdomen: Soft, No tenderness Extremities: Other (2+ edema of leg posteriorly (dependant position when he is supine), all the way from heels to buttocks) - Results Results: Laboratory Results WBC 1.2 x10^3/uL (4.8-10.8) L* 04/22/22 05:20 RBC 2.05 10^6/uL (4.70-6.10) L 04/22/22 05:20 Hgb 6.3 g/dL (14.0-18.0) L* 04/22/22 05:20 Hct 19.4 % (42.0-52.0) L* 04/22/22 05:20 MCV 94.6 fL (80.0-94.0) H 04/22/22 05:20 MCH 30.7 pg (27.0-31.0) 04/22/22 05:20 MCHC 32.5 g/dL (32.0-36.0) 04/22/22 05:20 RDW 20.7 % (12.0-15.0) H 04/22/22 05:20 Plt Count 44 10^3/uL (130-450) L 04/22/22 05:20 MPV 10.7 fL (7.4-11.4) 04/22/22 05:20 Neut # (Auto) 0.7 10^3/uL (1.5-6.6) L 04/22/22 05:20 Lymph # (Auto) 0.3 10^3/uL (1.5-3.5) L 04/22/22 05:20 [place] # (Auto) 0.1 10^3/uL (0.0-1.0) 04/22/22 05:20 Eos # (Auto) 0.1 10^3/uL (0.0-0.7) 04/22/22 05:20 Baso # (Auto) 0.0 10^3/uL (0.0-0.1) 04/22/22 05:20 Absolute Nucleated RBC 0.00 x10^3/uL 04/22/22 05:20 Total Counted 100 04/21/22 06:25 Band Neuts % (Manual) 0 % (0-10) 04/21/22 06:25 Reactive Lymphs % (Man) 4 % 04/18/22 06:50 Abnorm Lymph % (Manual) 0 % 04/21/22 06:25 Metamyelocytes % 2 % (-0) H 04/19/22 06:35 Myelocytes % 1 % (-0) H 04/12/22 05:25 Nucleated RBC % 0.0 /100WBC 04/22/22 05:20 Neutrophils # (Manual) 0.7 10^3/uL (1.5-6.6) L 04/21/22 06:25 Lymphocytes # (Manual) 0.5 10^3/uL (1.5-3.5) L 04/21/22 06:25 Monocytes # (Manual) 0.1 10^3/uL (0.0-1.0) 04/21/22 06:25 Eosinophils # (Manual) 0.0 10^3/uL (0-0.7) 04/21/22 06:25 Basophils # (Manual) 0.0 10^3/uL (0-0.1) 04/21/22 06:25 Nucleated RBCs 1 % 04/16/22 05:07 Differential Comment MANUAL DIFFERENTIAL 04/21/22 06:25 Manual Slide Review Indicated 04/22/22 05:20 WBC Morphology NORMAL APPEARANCE (NORMAL) 04/21/22 06:25 Platelet Estimate DECREASED (<130,000) (NORMAL) 04/22/22 05:20 Platelet Morphology NORMAL APPEARANCE (NORMAL) 04/22/22 05:20 RBC Morph Micro Appear 2+ ANISOCYTOSIS (NORMAL) 2+ HYPOCHROMASIA (NORMAL) 1+ OVALOCYTES (NORMAL) 04/22/22 05:20 RBC Morph Micro Appear 2+ ANISOCYTOSIS (NORMAL) 2+ HYPOCHROMASIA (NORMAL) 1+ OVALOCYTES (NORMAL) 04/22/22 05:20 RBC Morph Micro Appear 2+ ANISOCYTOSIS (NORMAL) 2+ HYPOCHROMASIA (NORMAL) 1+ OVALOCYTES (NORMAL) 04/22/22 05:20 PT 12.8 secs (9.9-12.6) H 04/02/22 05:49 INR 1.2 (0.8-1.2) 04/02/22 05:49 Sodium 136 mmol/L (135-145) 04/22/22 05:20 Potassium 3.0 mmol/L (3.5-5.0) L 04/22/22 05:20 Chloride 105 mmol/L (101-111) 04/22/22 05:20 Carbon Dioxide 22 mmol/L (21-32) 04/22/22 05:20 Anion Gap 9.0 (6-13) 04/22/22 05:20 BUN 17 mg/dL (6-20) 04/22/22 05:20 Creatinine 0.7 mg/dL (0.6-1.2) 04/22/22 05:20 Estimated GFR (MDRD) 111 (>89) 04/22/22 05:20 Glucose 122 mg/dL (70-100) H 04/22/22 05:20 Calcium 7.0 mg/dL (8.5-10.3) L 04/22/22 05:20 Phosphorus 3.2 mg/dL (2.5-4.6) 04/22/22 05:20 Magnesium 1.8 mg/dL (1.7-2.8) 04/22/22 05:20 Total Bilirubin 0.4 mg/dL (0.2-1.0) 04/22/22 05:20 AST 17 IU/L (10-42) 04/22/22 05:20 ALT 20 IU/L (10-60) 04/22/22 05:20 Alkaline Phosphatase 59 IU/L (42-121) 04/22/22 05:20 Total Protein 3.9 g/dL (6.7-8.2) L 04/22/22 05:20 Albumin 1.7 g/dL (3.2-5.5) L 04/22/22 05:20 Globulin 2.2 g/dL (2.1-4.2) 04/22/22 05:20 Albumin/Globulin Ratio 0.8 (1.0-2.2) L 04/22/22 05:20 Prealbumin 13 mg/dL (18-45) L 04/22/22 05:20 Triglycerides 88 mg/dL (-149) 04/22/22 05:20 Lipase 21 U/L (22-51) L 04/02/22 05:49 Urine Color RED/BLOODY 04/02/22 11:40 Urine Clarity TURBID (CLEAR) 04/02/22 11:40 Urine pH 6.0 PH (5.0-7.5) 04/02/22 11:40 Ur Specific Wisdom 1.025 (1.002-1.030) 04/02/22 11:40 Urine Protein >=300 mg/dL (NEGATIVE) H 04/02/22 11:40 Urine Glucose (UA) NEGATIVE mg/dL (NEGATIVE) 04/02/22 11:40 Urine Ketones NEGATIVE mg/dL (NEGATIVE) 04/02/22 11:40 Urine Occult Blood LARGE (NEGATIVE) H 04/02/22 11:40 Urine Nitrite NEGATIVE (NEGATIVE) 04/02/22 11:40 Urine Bilirubin NEGATIVE (NEGATIVE) 04/02/22 11:40 Urine Urobilinogen 0.2 (NORMAL) E.U./dL (NORMAL) 04/02/22 11:40 Ur Leukocyte Esterase NEGATIVE (NEGATIVE) 04/02/22 11:40 Urine RBC TNTC /HPF (0-5) H 04/02/22 11:40 Urine WBC 6-10 /HPF (0-3) H 04/02/22 11:40 Ur Squamous Epith Cells NONE SEEN (<= Few) 04/02/22 11:40 Urine Bacteria None Seen /HPF (None Seen) 04/02/22 11:40 Urine Yeast PRESENT 04/02/22 11:40 Ur Microscopic Review INDICATED 04/02/22 11:40 Urine Culture Comments NOT INDICATED 04/02/22 11:40 Stl C. diff Tox B Gene POSITIVE (NEGATIVE) A* 04/05/22 13:50 SARS-CoV-2 (PCR) DETECTED A 04/12/22 15:45 Blood Type AB POSITIVE 04/19/22 08:20 Antibody Screen NEGATIVE 04/19/22 08:20 Crossmatch IS Only See Detail 04/19/22 08:20 - Procedures Procedures: Procedures TRANSFUSE NONAUT PLATELETS IN PERIPH VEIN, PERC (06/24/21)
[2022-04-22] MEDS: oxyCODONE 5 MG TABLET PO PRN (14:31)
[2022-04-22] MEDS: FAT EMULSION 20% 250 ML IV SCH (19:01)
[2022-04-22] MEDS: TPN (CLINIMIX E 5/15) 2,000 ML with MULTIVITAMIN 10 ML, TRACE ELEMENTS 1 ML, POTASSIUM ... IV SCH ×4 (19:01)
[2022-04-22] MEDS: ATORVASTATIN 10 MG TABLET PO SCH (21:17)
[2022-04-22] MEDS: COD LIVER OIL/ZINC OXIDE 113 GM TUBE TOP PRN (21:17)
[2022-04-23] MEDS: HYDROmorphone 2 MG TABLET PO PRN ×5 (04:38→20:45)
[2022-04-23 05:30] LABS: BASOPHILS % (AUTO) 0.6 %; EOSINOPHILS % (AUTO) 3.8 %; HGB - HEMOGLOBIN 7.5 g/dL (14.0-18.0); LYMPHOCYTES % (AUTO) 17.9 %; MEAN CORPUSCULAR HGB CONC 32.6 g/dL (32.0-36.0); MEAN PLATELET VOLUME 10.7 fL (7.4-11.4); MONOCYTES % (AUTO) 8.3 %; NEUTROPHILS % (AUTO) 68.8 %; PLT - PLATELET COUNT 38 10^3/uL (130-450); RED BLOOD COUNT 2.42 10^6/uL (4.70-6.10)
[2022-04-23 05:33] LABS: WHITE BLOOD COUNT 1.6 x10^3/uL (4.8-10.8)
[2022-04-23 05:34] LABS: ABNORMAL LYMPHS % (MANUAL) 0 %
[2022-04-23 05:53] LABS: CALCIUM 7.5 mg/dL (8.5-10.3); CREATININE 0.8 mg/dL (0.6-1.2); MAGNESIUM 1.9 mg/dL (1.7-2.8); POTASSIUM 3.9 mmol/L (3.5-5.0)
[2022-04-23 06:30] LABS: BAND NEUTROPHILS % (MANUAL) 1 %; BASOPHILS % (MANUAL) 1 %; EOSINOPHILS # (MANUAL) 0.1 10^3/uL (0-0.7); LYMPHOCYTES # (MANUAL) 0.3 10^3/uL (1.5-3.5); LYMPHOCYTES % (MANUAL) 21 %; MONOCYTES # (MANUAL) 0.1 10^3/uL (0.0-1.0); NEUTROPHILS # (MANUAL) 1.1 10^3/uL (1.5-6.6)
[2022-04-23 06:31] LABS: DIFFERENTIAL COMMENT MANUAL DIFFERENTIAL; PLATELET ESTIMATE, MANUAL DECREASED (<130,000) (NORMAL)
[2022-04-23] MEDS: PIPERACILLIN/TAZOBACTAM 3.375 GM in SODIUM CHLORIDE 0.9% MINIBAG 100 ML IV SCH ×5 (06:40→17:05)
[2022-04-23] MEDS: PANTOPRAZOLE 40 MG TABLET PO SCH (06:40)
[2022-04-23] MEDS: CARBOXYMETHYLCELLULOSE OPHTH DROPS EACHEYE SCH ×3 (06:40→21:00)
[2022-04-23] MEDS: INSULIN LISPRO 300 UNIT/3 ML PEN SUBQ SCH ×4 (08:46→20:43)
[2022-04-23] MEDS: TAMSULOSIN 0.4 MG CAPSULE PO SCH (08:48)
[2022-04-23] MEDS: AMIODARONE 200 MG TABLET PO SCH (08:48)
[2022-04-23] MEDS: CHOLECALCIFEROL 25 MCG TABLET PO SCH (08:49)
[2022-04-23] MEDS: predniSONE 20 MG TABLET PO SCH (08:49)
[2022-04-23] MEDS: CALCIUM CARB (OYSTER SHELL) 500 MG TABLET PO SCH (08:49)
[2022-04-23] MEDS: LIDOCAINE OINTMENT 5% 35.44 GM TUBE TOP SCH ×4 (08:50→20:45)
[2022-04-23] MEDS: SODIUM CHLORIDE FLUSH 0.9% 10 ML SYRINGE IVP SCH ×2 (08:50→16:40)
[2022-04-23] MEDS: FLUTICASONE NASAL SPRAY NAS SCH (08:50)
[2022-04-23] MEDS: FUROSEMIDE 20 MG/2 ML VIAL IVP SCH (08:50)
[2022-04-23] MEDS: OFLOXACIN 0.3% OPHTH DROPS LEFTEYE SCH (08:50)
[2022-04-23] MEDS: prednisoLONE 1% OPHTH DROPS 75 DROPS/5 ML BOTTLE LEFTEYE SCH (08:50)
--- NOTE | 2022-04-23 17:52 | PROVIDER PROGRESS NOTE ---
Assessment/Plan - Problem List (1) Diverticular hemorrhage Assessment/Plan: Presented as hematochezia on admission. Had C. difficile colitis. Was treated with po Vanco. Then he had even more hematochezia and CT confirmed focal segmental diverticulitis. At that point in time we started him on budesonide as requested by Dr. Maradiaga on the bone marrow team, which was later stopped and started him on single agent Zosyn. He has needed blood transfusions daily most recently Today I updated the transfer center on this problem and his colonic bleeding and more frequent blood transfusion needs. When I put today's call out to there are no beds for him to be transferred into today. I also called [facility] today to try transfer him there, but I was told by the transfer center there, that my colleague has already called them a week ago and spoke to oncology who turned down this patient in transfer, saying that he would need chemotherapy for what he has and they cannot provide that. (2) Sigmoid diverticulitis Assessment/Plan: Presented as hematochezia on admission. Had C. difficile colitis. Was treated with po Vanco. Then he had even more hematochezia and CT confirmed focal segmental diverticulitis. At that point in time we started him on budesonide as requested by Dr. Maradiaga on the bone marrow team, which was later stopped and started him on single agent Zosyn. He has needed blood transfusions daily most recently Today we called transfer center. There are no beds for him to be transferred into today. Today I called [facility] to request transfer and the transfer center said that the previous hospitalist here is already called them, spoke to an oncologist who did not accept him because "he would need chemotherapy to treat the pancytopenia" 3. Anemia. His CBC is carefully being watched to see when needs transfusion. I reviewed all labs. Plan: Transfused for Hgb <6.8 4. Leg edema This started slowly since he was put on TPN to get calories, he has gained 20 pounds since that time. Yesterday Lasix 20 mg IV daily was started Plan: Continue to follow I's and O and clinical exam 5. Acute hemorrhagic cystitis He continues with a re-inserted Juarez. Hematuria is up and down 6 Pancytopenia Per discussion with his oncologist Dr. Danyelle Ortiz earlier this admission, this is his new normal however it has been worsened by blood loss in the urine and from his colon 7. Thrombocytopenia Per discussion with his oncologist Dr. Danyelle Ortiz earlier this admission, this i s his new normal Plan: Platelet transfusions if platelet count goes below 30 8. 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 As of April 11, Oncology concluded that he would benefit from higher level of care transfer for. We called several facilities. [facility] excepted him. Dr Amador Brooks has been the physician accepting him. We are waiting for bed assignment. 9. Sacral decubitus ulcer It is located more on the right buttock. Stage II. Getting Desitin, offloading, and TPN to help him nutrition 10. Severe protein calorie malnutrition. TPN ongoing. 11. Chronic diastolic heart failure. He developed anasarca from TPN. Lasix started 12. Orthostatic hypotension. He is now on his regular prednisone of [address] Maradiaga's recommendation. Blood pressures appear stable since April 08. 13. Paroxysmal A-fib HR is stable. Not on anticoagulation because of bleeding 14. History of DVT and PE. Not on anticoagulation. May need a Goran filter but we do not do that here 15. Chronic kidney disease stable. Labs all reviewed. Renal labs have been stable. 16. Hypokalemia He is getting potassium in his TPN. The potassium amount was increased yesterday. Plan: We will also give oral potassium 17. COVID-positive Asymptomatic. 18. Anal lesion. Benign pathology on biopsy. 19. C. difficile colitis. Completed 11 days of oral vancomycin on April 15. - Current Meds Current Meds: Current Medications Generic Name Dose Route Start Last Admin Trade Name Freq PRN Reason Stop Dose Admin Acetaminophen 650 mg 04/02/22 16:39 04/21/22 21:22 Acetaminophen 325 Mg Tablet PO 650 mg Q4HR PRN Administration Pain 1 to 4, or Fever Amiodarone HCl 100 mg 04/08/22 09:00 04/23/22 08:48 Amiodarone 200 Mg Tablet PO 100 mg DAILY JUJU Administration Atorvastatin Calcium 10 mg 04/04/22 21:00 04/22/22 21:17 Atorvastatin 10 Mg Tablet PO 10 mg 2100 JUJU Administration Calcium Carbonate/Glycine 500 mg 04/04/22 09:00 04/23/22 08:49 Calcium Carb (Oyster Shell) 500 Mg Tablet PO 500 mg 0900 [facility] Administration Calcium Carbonate/Glycine 500 mg 04/04/22 18:17 04/15/22 21:08 Calcium Carbonate Chew 500 Mg Tablet PO 500 mg TID PRN Administration INDIGESTION Carboxymethylcellulose 1 drops 04/09/22 11:22 04/23/22 13:00 Carboxymethylcellulose Ophth Drops EACHEYE 1 drops TID JUJU Administration Cholecalciferol 50 mcg 04/04/22 17:00 04/23/22 08:49 Cholecalciferol 25 Mcg Tablet PO 50 mcg DAILY JUJU Administration Fluticasone Propionate 1 sprays 04/05/22 09:00 04/23/22 08:50 Fluticasone Nasal [place] SHENA 1 spr DAILY JUJU Administration Furosemide 20 mg 04/21/22 11:00 04/23/22 08:50 Furosemide 20 Mg/2 Ml Vial IVP 20 mg DAILY [facility] Administration Heparin Sodium (Beef Lung) 30 - 50 unit 04/03/22 16:08 04/04/22 08:25 Heparin Flush 50 Units/5 Ml Syringe IVP 50 unit PRN PRN Administration Port Protocol (<24 hours) Hydromorphone HCl 4 mg 04/19/22 00:06 04/23/22 16:08 Hydromorphone 2 Mg Tablet PO 4 mg Q4HR PRN Administration Severe Pain Fat Emulsion Intravenous 250 mls @ 21 mls/hr 04/08/22 19:00 04/23/22 07:00 Intralipid 20% IV Infused 1900 [facility] Infusion Multivitamins 10 ml/ TRACE 2,026 mls @ 70 mls/hr 04/21/22 19:01 04/22/22 19:01 ELEMENTS 1 ml/ Potassium IV 70 mls/hr Chloride 30 meq/ Amino Ac/ 1900 [facility] Administration Electrol/Dextrose/Calcium Protocol Piperacillin Sod/Tazobactam 100 mls @ 200 mls/hr 04/22/22 00:00 04/23/22 17:05 Sod 3.375 gm/ Sodium Chloride IV 200 mls/hr Q6H JUJU Administration Insulin Human Lispro 1 - 9 unit 04/15/22 08:00 04/23/22 16:40 Insulin Lispro 300 Unit/3 Ml Pen SUBQ 1 unit 0800,1200,1700,2100 JUJU Administration Protocol Lidocaine 1 applic 04/15/22 13:00 04/23/22 16:39 Lidocaine Ointment 5% 35.44 Gm Tube TOP 1 applic QID JUJU Administration Multi-Ingredient Ointment 1 applic 04/04/22 10:11 04/22/22 21:18 Zinc Oxide 20% Oint 30 Gm Tube TOP 1 applic PRN PRN Administration Skin Care Ofloxacin 1 drops 04/04/22 09:00 04/23/22 08:50 Ofloxacin 0.3% Ophth Drops LEFTEYE 1 drops DAILY JUJU Administration Ondansetron HCl 4 mg 04/02/22 16:39 04/05/22 02:20 Ondansetron 4 Mg/2 Ml Vial IVP 4 mg Q6HR PRN Administration Nausea / Vomiting Oxycodone HCl 5 mg 04/05/22 08:52 04/22/22 14:31 Oxycodone 5 Mg Tablet PO 5 mg Q6HR PRN Administration Pain 5 to 7 Pantoprazole Sodium 40 mg 04/04/22 19:00 04/23/22 06:40 Pantoprazole 40 Mg Tablet PO 40 mg QDAC JUJU Administration Prednisolone 1 drops 04/04/22 09:00 04/23/22 08:50 Prednisolone 1% Ophth Drops 75 Drops/5 Ml Bottle LEFTEYE 1 drops DAILY JUJU Administration Prednisone 10 mg 04/16/22 08:00 04/23/22 08:49 Prednisone 20 Mg Tablet PO 10 mg DAILYWM JUJU Administration Sodium Chloride 10 ml 04/02/22 16:39 04/19/22 06:29 Sodium Chloride Flush 0.9% 10 Ml Syringe IVP 30 ml PRN PRN Administration NEEDED PER PROVIDER ORDERS Sodium Chloride 10 ml 04/02/22 17:00 04/23/22 16:40 Sodium Chloride Flush 0.9% 10 Ml Syringe IVP 10 ml 0100,0900,1700 JUJU Administration Tamsulosin HCl 0.4 mg 04/08/22 08:02 04/23/22 08:48 Tamsulosin 0.4 Mg Capsule PO 0.4 mg DAILY JUJU Administration Throat Lozenges 1 lozenge 04/19/22 02:53 04/19/22 05:37 Benzocaine/Menthol Lozenge MM 1 lozenge Q2HR PRN Administration Throat pain Witch [place]/Glycerin 1 pad 04/03/22 15:28 04/21/22 05:19 [place]/Glycerin 1 Pad TOP 1 pad PRN PRN Administration ITCHING Zinc Oxide 113 gm 04/06/22 09:26 04/22/22 21:17 Cod Liver Oil/Zinc Oxide 113 Gm Tube TOP 1 applic PRN PRN Administration Skin Care - Lab Result Fish Bone Diagrams: 04/24/22 08:35 04/24/22 08:35 Subjective - Subjective Patient Reports: Resting Comfortably, No Complaints (wants to be transferred) Objective Vital Signs: Vital Signs - 24 hr 04/22/22 04/23/22 04/23/22 23:51 08:04 15:31 Temperature 36.3 C L 36.5 C 36.4 C L Heart Rate [ 73 79 73 Brachial] Respiratory 18 18 16 Rate Blood Pressure 118/81 H 111/61 [Left Brachial artery] Blood Pressure 133/67 H [Right Brachial artery] O2 Saturation 96 96 97 Oxygen O2 Source Room air I&O (Last 24 Hrs): Intake and Output Totals x24h 04/21/22 04/22/22 04/23/22 23:59 23:59 23:59 Intake Total 3325.5 3776.333 890 Output Total 5975 6350 5400 Balance -2649.5 -4373.667 -6600 General: Alert, Oriented x3, Other (naps alot) HEENT: Mucous membr. moist/pink, Other (L eye patched) Neuro: Alert, Non Focal Cardiovascular: No murmurs Respiratory: No respiratory distress Abdomen: Soft, No tenderness Extremities: Other (1+ edema tposteriorly to buttocks) - Results Results: Laboratory Results WBC 1.6 x10^3/uL (4.8-10.8) L* 04/23/22 05:09 RBC 2.42 10^6/uL (4.70-6.10) L 04/23/22 05:09 Hgb 7.5 g/dL (14.0-18.0) L 04/23/22 05:09 Hct 23.0 % (42.0-52.0) L 04/23/22 05:09 MCV 95.0 fL (80.0-94.0) H 04/23/22 05:09 MCH 31.0 pg (27.0-31.0) 04/23/22 05:09 MCHC 32.6 g/dL (32.0-36.0) 04/23/22 05:09 RDW 19.0 % (12.0-15.0) H 04/23/22 05:09 Plt Count 38 10^3/uL (130-450) L 04/23/22 05:09 MPV 10.7 fL (7.4-11.4) 04/23/22 05:09 Neut # (Auto) Not Reportable 04/23/22 05:09 Lymph # (Auto) Not Reportable 04/23/22 05:09 [place] # (Auto) Not Reportable 04/23/22 05:09 Eos # (Auto) Not Reportable 04/23/22 05:09 Baso # (Auto) Not Reportable 04/23/22 05:09 Absolute Nucleated RBC Not Reportable 04/23/22 05:09 Total Counted 100 04/23/22 05:09 Band Neuts % (Manual) 1 % (0-10) 04/23/22 05:09 Reactive Lymphs % (Man) 4 % 04/18/22 06:50 Abnorm Lymph % (Manual) 0 % 04/23/22 05:09 Metamyelocytes % 2 % (-0) H 04/19/22 06:35 Myelocytes % 1 % (-0) H 04/12/22 05:25 Nucleated RBC % Not Reportable 04/23/22 05:09 Neutrophils # (Manual) 1.1 10^3/uL (1.5-6.6) L 04/23/22 05:09 Lymphocytes # (Manual) 0.3 10^3/uL (1.5-3.5) L 04/23/22 05:09 Monocytes # (Manual) 0.1 10^3/uL (0.0-1.0) 04/23/22 05:09 Eosinophils # (Manual) 0.1 10^3/uL (0-0.7) 04/23/22 05:09 Basophils # (Manual) 0.0 10^3/uL (0-0.1) 04/23/22 05:09 Nucleated RBCs 1 % 04/16/22 05:07 Differential Comment MANUAL DIFFERENTIAL 04/23/22 05:09 Manual Slide Review Indicated 04/22/22 05:20 WBC Morphology NORMAL APPEARANCE (NORMAL) 04/21/22 06:25 Platelet Estimate DECREASED (<130,000) (NORMAL) 04/23/22 05:09 Platelet Morphology NORMAL APPEARANCE (NORMAL) 04/22/22 05:20 RBC Morph Micro Appear 1+ ANISOCYTOSIS (NORMAL) 1+ HYPOCHROMASIA (NORMAL) 1+ OVALOCYTES (NORMAL) 04/23/22 05:09 RBC Morph Micro Appear 1+ ANISOCYTOSIS (NORMAL) 1+ HYPOCHROMASIA (NORMAL) 1+ OVALOCYTES (NORMAL) 04/23/22 05:09 RBC Morph Micro Appear 1+ ANISOCYTOSIS (NORMAL) 1+ HYPOCHROMASIA (NORMAL) 1+ OVALOCYTES (NORMAL) 04/23/22 05:09 PT 12.8 secs (9.9-12.6) H 04/02/22 05:49 INR 1.2 (0.8-1.2) 04/02/22 05:49 Sodium 135 mmol/L (135-145) 04/23/22 05:09 Potassium 3.9 mmol/L (3.5-5.0) 04/23/22 05:09 Chloride 105 mmol/L (101-111) 04/23/22 05:09 Carbon Dioxide 24 mmol/L (21-32) 04/23/22 05:09 Anion Gap 6.0 (6-13) 04/23/22 05:09 BUN 18 mg/dL (6-20) 04/23/22 05:09 Creatinine 0.8 mg/dL (0.6-1.2) 04/23/22 05:09 Estimated GFR (MDRD) 95 (>89) 04/23/22 05:09 Glucose 118 mg/dL (70-100) H 04/23/22 05:09 Calcium 7.5 mg/dL (8.5-10.3) L 04/23/22 05:09 Phosphorus 3.2 mg/dL (2.5-4.6) 04/22/22 05:20 Magnesium 1.9 mg/dL (1.7-2.8) 04/23/22 05:09 Total Bilirubin 0.4 mg/dL (0.2-1.0) 04/22/22 05:20 AST 17 IU/L (10-42) 04/22/22 05:20 ALT 20 IU/L (10-60) 04/22/22 05:20 Alkaline Phosphatase 59 IU/L (42-121) 04/22/22 05:20 Total Protein 3.9 g/dL (6.7-8.2) L 04/22/22 05:20 Albumin 1.7 g/dL (3.2-5.5) L 04/22/22 05:20 Globulin 2.2 g/dL (2.1-4.2) 04/22/22 05:20 Albumin/Globulin Ratio 0.8 (1.0-2.2) L 04/22/22 05:20 Prealbumin 13 mg/dL (18-45) L 04/22/22 05:20 Triglycerides 88 mg/dL (-149) 04/22/22 05:20 Lipase 21 U/L (22-51) L 04/02/22 05:49 Urine Color RED/BLOODY 04/02/22 11:40 Urine Clarity TURBID (CLEAR) 04/02/22 11:40 Urine pH 6.0 PH (5.0-7.5) 04/02/22 11:40 Ur Specific [place] 1.025 (1.002-1.030) 04/02/22 11:40 Urine Protein >=300 mg/dL (NEGATIVE) H 04/02/22 11:40 Urine Glucose (UA) NEGATIVE mg/dL (NEGATIVE) 04/02/22 11:40 Urine Ketones NEGATIVE mg/dL (NEGATIVE) 04/02/22 11:40 Urine Occult Blood LARGE (NEGATIVE) H 04/02/22 11:40 Urine Nitrite NEGATIVE (NEGATIVE) 04/02/22 11:40 Urine Bilirubin NEGATIVE (NEGATIVE) 04/02/22 11:40 Urine Urobilinogen 0.2 (NORMAL) E.U./dL (NORMAL) 04/02/22 11:40 Ur Leukocyte Esterase NEGATIVE (NEGATIVE) 04/02/22 11:40 Urine RBC TNTC /HPF (0-5) H 04/02/22 11:40 Urine WBC 6-10 /HPF (0-3) H 04/02/22 11:40 Ur Squamous Epith Cells NONE SEEN (<= Few) 04/02/22 11:40 Urine Bacteria None Seen /HPF (None Seen) 04/02/22 11:40 Urine Yeast PRESENT 04/02/22 11:40 Ur Microscopic Review INDICATED 04/02/22 11:40 Urine Culture Comments NOT INDICATED 04/02/22 11:40 Stl C. diff Tox B Gene POSITIVE (NEGATIVE) A* 04/05/22 13:50 SARS-CoV-2 (PCR) DETECTED A 04/12/22 15:45 Blood Type AB POSITIVE 04/19/22 08:20 Antibody Screen NEGATIVE 04/19/22 08:20 Crossmatch IS Only See Detail 04/19/22 08:20 - Procedures Procedures: Procedures TRANSFUSE NONAUT PLATELETS IN PERIPH VEIN, PERC (06/24/21)
[2022-04-23] MEDS: TPN (CLINIMIX E 5/15) 2,000 ML with MULTIVITAMIN 10 ML, TRACE ELEMENTS 1 ML, POTASSIUM ... IV SCH ×4 (18:35)
[2022-04-23] MEDS: FAT EMULSION 20% 250 ML IV SCH (18:35)
[2022-04-23] MEDS: ATORVASTATIN 10 MG TABLET PO SCH (20:45)
[2022-04-24] MEDS: PIPERACILLIN/TAZOBACTAM 3.375 GM in SODIUM CHLORIDE 0.9% MINIBAG 100 ML IV SCH ×4 (00:15→17:18)
[2022-04-24] MEDS: HYDROmorphone 2 MG TABLET PO PRN ×6 (00:59→21:32)
[2022-04-24] MEDS: SODIUM CHLORIDE FLUSH 0.9% 10 ML SYRINGE IVP SCH ×3 (00:59→17:18)
[2022-04-24] MEDS: CARBOXYMETHYLCELLULOSE OPHTH DROPS EACHEYE SCH ×3 (06:31→21:32)
[2022-04-24] MEDS: PANTOPRAZOLE 40 MG TABLET PO SCH (06:31)
[2022-04-24] MEDS: INSULIN LISPRO 300 UNIT/3 ML PEN SUBQ SCH ×4 (07:47→21:33)
[2022-04-24] MEDS: predniSONE 20 MG TABLET PO SCH (08:21)
[2022-04-24] MEDS: CALCIUM CARB (OYSTER SHELL) 500 MG TABLET PO SCH (08:21)
[2022-04-24] MEDS: CHOLECALCIFEROL 25 MCG TABLET PO SCH (08:22)
[2022-04-24] MEDS: AMIODARONE 200 MG TABLET PO SCH (08:22)
[2022-04-24] MEDS: TAMSULOSIN 0.4 MG CAPSULE PO SCH (08:22)
[2022-04-24] MEDS: FUROSEMIDE 20 MG/2 ML VIAL IVP SCH (08:22)
[2022-04-24] MEDS: prednisoLONE 1% OPHTH DROPS 75 DROPS/5 ML BOTTLE LEFTEYE SCH (08:37)
[2022-04-24] MEDS: FLUTICASONE NASAL SPRAY NAS SCH (08:37)
[2022-04-24] MEDS: COD LIVER OIL/ZINC OXIDE 113 GM TUBE TOP PRN ×2 (08:37→16:53)
[2022-04-24] MEDS: OFLOXACIN 0.3% OPHTH DROPS LEFTEYE SCH (08:37)
[2022-04-24] MEDS: LIDOCAINE OINTMENT 5% 35.44 GM TUBE TOP SCH ×4 (08:38→21:33)
[2022-04-24 08:44] LABS: BASOPHILS % (AUTO) 0.5 %; EOSINOPHILS # (AUTO) 0.1 10^3/uL (0.0-0.7); HCT - HEMATOCRIT 25.5 % (42.0-52.0); HGB - HEMOGLOBIN 8.2 g/dL (14.0-18.0); LYMPHOCYTES # (AUTO) 0.4 10^3/uL (1.5-3.5); LYMPHOCYTES % (AUTO) 17.5 %; MEAN CORPUSCULAR HEMOGLOBIN 30.9 pg (27.0-31.0); MEAN CORPUSCULAR HGB CONC 32.2 g/dL (32.0-36.0); MEAN CORPUSCULAR VOLUME 96.2 fL (80.0-94.0); MEAN PLATELET VOLUME 10.4 fL (7.4-11.4); MONOCYTES # (AUTO) 0.2 10^3/uL (0.0-1.0); MONOCYTES % (AUTO) 7.5 %; NEUTROPHILS # (AUTO) 1.4 10^3/uL (1.5-6.6); NEUTROPHILS % (AUTO) 68.5 %; RED BLOOD COUNT 2.65 10^6/uL (4.70-6.10); RED CELL DISTRIBUTION WIDTH 18.1 % (12.0-15.0)
[2022-04-24 08:53] LABS: CREATININE 0.8 mg/dL (0.6-1.2); POTASSIUM 4.1 mmol/L (3.5-5.0)
[2022-04-24 09:01] LABS: PLATELET ESTIMATE, MANUAL DECREASED (<130,000) (NORMAL); PLATELET MORPHOLOGY NORMAL APPEARANCE (NORMAL); PLT - PLATELET COUNT 31 10^3/uL (130-450); SLIDE REVIEW? Indicated
--- NOTE | 2022-04-24 12:57 | PROVIDER PROGRESS NOTE ---
Assessment/Plan - Problem List (1) Diverticular hemorrhage Assessment/Plan: Presented as hematochezia on admission. Had C. difficile colitis. Was treated with po Vanco. Then he had even more hematochezia and CT confirmed focal segmental diverticulitis. At that point in time we started him on budesonide as requested by Dr. Maradiaga on the bone marrow team, which was later stopped and started him on single agent Zosyn. He has needed blood transfusions daily most recently ( ddays). Today I updated the transfer center on his problems, lab resukts and his colonic bleeding and blood transfusion needs. There are no beds for him to be transferred into today. (2) Sigmoid diverticulitis Assessment/Plan: Presented as hematochezia on admission. Had C. difficile colitis. Was treated with po Vanco. Then he had even more hematochezia and CT confirmed focal segmental diverticulitis. At that point in time we started him on budesonide as requested by Dr. Maradiaga on the bone marrow team, which was later stopped and started him on single agent Zosyn. He has needed blood transfusions daily most recently Today, there was a brown bowel movement and today there is no blood in his [place] Today I spoke with transfer center and updated them on his entire status; there are no beds for him to be transferred into today. 3. Anemia. His CBC is carefully being watched to see when needs transfusion. I reviewed all labs. Hgb 8 Plan: Today he will not be transfused Transfuse if Hgb <6.8 4. Leg edema This started slowly since he was put on TPN to get calories, he has gained 20 pounds since that time. Lasix 20 mg IV daily has been given for 3 days with signif decrease in leg edema now, even skin wrinkling seen on thighs Plan: Continue to follow I's and O Will change th iv Lasix to po Cont Lasix while he is getting TPN 5. Acute hemorrhagic cystitis He continues with a re-inserted [place]. The hematuria is up and down. Urology input is needed. 6. Pancytopenia Per discussion with his oncologist Dr. Danyelle Ortiz earlier this admission, this is his new normal however it has been worsened by blood loss in the urine and from his colon 7. Thrombocytopenia Per discussion with his oncologist Dr. Danyelle Ortiz earlier this admission, this is his new normal Plan: Platelet transfusions if platelet count goes below 30 8. 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 As of April 11, Oncology concluded that he would benefit from higher level of care transfer for. We called several facilities. [facility] excepted him. Dr Amador Brooks has been the physician accepting him. We are waiting for bed assignment. 9. Sacral decubitus ulcer It is located more on the right buttock. Stage II. Getting Desitin, offloading, and TPN to help him nutrition 10. Severe protein calorie malnutrition. TPN ongoing. 11. Chronic diastolic heart failure. He developed anasarca from TPN. Lasix started 12. Orthostatic hypotension. He is now on his regular prednisone of [address] mg [address] day [address] Dr[address] Maradiaga's recommendation. Blood pressures appear stable since April 08. 13. Paroxysmal A-fib HR is stable. Not on anticoagulation because of bleeding 14. History of DVT and PE. Not on anticoagulation. May need a Dresher filter but we do not do that here 15. Chronic kidney disease stable. Labs all reviewed. Renal labs have been stable. 16. Hypokalemia He is getting potassium in his TPN. The potassium amount was increased yesterday. Plan: We will also give oral potassium 17. COVID-positive Asymptomatic. 18. Anal lesion. Benign pathology on biopsy. 19. C. difficile colitis. Completed 11 days of oral vancomycin on April 15. - Current Meds Current Meds: Current Medications Generic Name Dose Route Start Last Admin Trade Name Kavin PRN Reason Stop Dose Admin Acetaminophen 650 mg 04/02/22 16:39 04/21/22 21:22 Acetaminophen 325 Mg Tablet PO 650 mg Q4HR PRN Administration Pain 1 to 4, or Fever Amiodarone HCl 100 mg 04/08/22 09:00 04/24/22 08:22 Amiodarone 200 Mg Tablet PO 100 mg DAILY JUJU Administration Atorvastatin Calcium 10 mg 04/04/22 21:00 04/23/22 20:45 Atorvastatin 10 Mg Tablet PO 10 mg 2100 JUJU Administration Calcium Carbonate/Glycine 500 mg 04/04/22 09:00 04/24/22 08:21 Calcium Carb (Oyster Shell) 500 Mg Tablet PO 500 mg 0900 JUJU Administration Calcium Carbonate/Glycine 500 mg 04/04/22 18:17 04/15/22 21:08 Calcium Carbonate Chew 500 Mg Tablet PO 500 mg TID PRN Administration INDIGESTION Carboxymethylcellulose 1 drops 04/09/22 11:22 04/24/22 06:31 Carboxymethylcellulose Ophth Drops EACHEYE 1 drops TID JUJU Administration Cholecalciferol 50 mcg 04/04/22 17:00 04/24/22 08:22 Cholecalciferol 25 Mcg Tablet PO 50 mcg DAILY JUJU Administration Fluticasone Propionate 1 sprays 04/05/22 09:00 04/24/22 08:37 Fluticasone Nasal [place] SHENA 1 spr DAILY [facility] Administration Furosemide 20 mg 04/21/22 11:00 04/24/22 08:22 Furosemide 20 Mg/2 Ml Vial IVP 20 mg DAILY JUJU Administration Heparin Sodium (Beef Lung) 30 - 50 unit 04/03/22 16:08 04/04/22 08:25 Heparin Flush 50 Units/5 Ml Syringe IVP 50 unit PRN PRN Administration Port Protocol (<24 hours) Hydromorphone HCl 4 mg 04/19/22 00:06 04/24/22 09:10 Hydromorphone 2 Mg Tablet PO 4 mg Q4HR PRN Administration Severe Pain Fat Emulsion Intravenous 250 mls @ 21 mls/hr 04/08/22 19:00 04/24/22 06:30 Intralipid 20% IV Infused 1900 [facility] Infusion Multivitamins 10 ml/ TRACE 2,026 mls @ 70 mls/hr 04/21/22 19:01 04/23/22 18:35 ELEMENTS 1 ml/ Potassium IV 70 mls/hr Chloride 30 meq/ Amino Ac/ 1900 [facility] Administration Electrol/Dextrose/Calcium Protocol Piperacillin Sod/Tazobactam 100 mls @ 200 mls/hr 04/22/22 00:00 04/24/22 1 2:20 Sod 3.375 gm/ Sodium Chloride IV Infused Q6H [facility] Infusion Insulin Human Lispro 1 - 9 unit 04/15/22 08:00 04/24/22 11:32 Insulin Lispro 300 Unit/3 Ml Pen SUBQ 1 unit 0800,1200,1700,2100 [facility] Administration Protocol Lidocaine 1 applic 04/15/22 13:00 04/24/22 12:12 Lidocaine Ointment 5% 35.44 Gm Tube TOP 1 applic QID JUJU Administration Multi-Ingredient Ointment 1 applic 04/04/22 10:11 04/22/22 21:18 Zinc Oxide 20% Oint 30 Gm Tube TOP 1 applic PRN PRN Administration Skin Care Ofloxacin 1 drops 04/04/22 09:00 04/24/22 08:37 Ofloxacin 0.3% Ophth Drops LEFTEYE 1 drops DAILY JUJU Administration Ondansetron HCl 4 mg 04/02/22 16:39 04/05/22 02:20 Ondansetron 4 Mg/2 Ml Vial IVP 4 mg Q6HR PRN Administration Nausea / Vomiting Oxycodone HCl 5 mg 04/05/22 08:52 04/22/22 14:31 Oxycodone 5 Mg Tablet PO 5 mg Q6HR PRN Administration Pain 5 to 7 Pantoprazole Sodium 40 mg 04/04/22 19:00 04/24/22 06:31 Pantoprazole 40 Mg Tablet PO 40 mg QDAC JUJU Administration Prednisolone 1 drops 04/04/22 09:00 04/24/22 08:37 Prednisolone 1% Ophth Drops 75 Drops/5 Ml Bottle LEFTEYE 1 drops DAILY JUJU Administration Prednisone 10 mg 04/16/22 08:00 04/24/22 08:21 Prednisone 20 Mg Tablet PO 10 mg DAILYWM JUJU Administration Sodium Chloride 10 ml 04/02/22 16:39 04/19/22 06:29 Sodium Chloride Flush 0.9% 10 Ml Syringe IVP 30 ml PRN PRN Administration NEEDED PER PROVIDER ORDERS Sodium Chloride 10 ml 04/02/22 17:00 04/24/22 08:22 Sodium Chloride Flush 0.9% 10 Ml Syringe IVP 10 ml 0100,0900,1700 JUJU Administration Tamsulosin HCl 0.4 mg 04/08/22 08:02 04/24/22 08:22 Tamsulosin 0.4 Mg Capsule PO 0.4 mg DAILY JUJU Administration Throat Lozenges 1 lozenge 04/19/22 02:53 04/19/22 05:37 Benzocaine/Menthol Lozenge MM 1 lozenge Q2HR PRN Administration Throat pain Witch [place]/Glycerin 1 pad 04/03/22 15:28 04/21/22 05:19 [place]/Glycerin 1 Pad TOP 1 pad PRN PRN Administration ITCHING Zinc Oxide 113 gm 04/06/22 09:26 04/24/22 08:37 Cod Liver Oil/Zinc Oxide 113 Gm Tube TOP 1 applic PRN PRN Administration Skin Care - Lab Result Fish Bone Diagrams: 04/24/22 08:35 04/24/22 08:35 - Additional Planning My Orders: My Active Orders 04/25/22 05:00 BMP - BASIC METABOLIC PANEL [CHEM] DAILYLAB CBC - COMP BLD CT W/AUTO DIFF [HEME] DAILYLAB 04/26/22 05:00 BMP - BASIC METABOLIC PANEL [CHEM] DAILYLAB CBC - COMP BLD CT W/AUTO DIFF [HEME] DAILYLAB 04/27/22 05:00 BMP - BASIC METABOLIC PANEL [CHEM] DAILYLAB CBC - COMP BLD CT W/AUTO DIFF [HEME] DAILYLAB 04/28/22 05:00 BMP - BASIC METABOLIC PANEL [CHEM] DAILYLAB CBC - COMP BLD CT W/AUTO DIFF [HEME] DAILYLAB 04/29/22 05:00 BMP - BASIC METABOLIC PANEL [CHEM] DAILYLAB CBC - COMP BLD CT W/AUTO DIFF [HEME] DAILYLAB Subjective - Subjective Nursing Reports: Other (RN notices he is slightly more alert and interactive, has had less blood in the bowel movements and no blood in his [place] bag) Objective Vital Signs: Vital Signs - 24 hr 04/23/22 04/23/22 04/24/22 15:31 23:34 07:44 Temperature 36.4 C L 36.4 C L 36.4 C L Heart Rate [ 73 71 81 Brachial] Respiratory 16 18 18 Rate Blood Pressure 111/61 [Left Brachial artery] Blood Pressure 119/61 111/57 L [Right Brachial artery] O2 Saturation 97 98 99 Oxygen O2 Source Room air I&O (Last 24 Hrs): Intake and Output Totals x24h 04/22/22 04/23/22 04/24/22 23:59 23:59 23:59 Intake Total 3776.333 2989.667 790 Output Total 6395 6400 2049 Balance -2573.667 -3410.333 -8870 General: Alert, Other (Tired, naps alot) HEENT: Mucous membr. moist/pink, Other (L eye patched) Neck: Supple Neuro: Alert, Non Focal Cardiovascular: No murmurs Respiratory: No respiratory distress Abdomen: Soft, No tenderness Extremities: Other (1+ posterior leg dependant edema and wrinkled skin around t hat, up to thighs) - Results Results: Laboratory Results WBC 2.0 x10^3/uL (4.8-10.8) L* 04/24/22 08:35 RBC 2.65 10^6/uL (4.70-6.10) L 04/24/22 08:35 Hgb 8.2 g/dL (14.0-18.0) L 04/24/22 08:35 Hct 25.5 % (42.0-52.0) L 04/24/22 08:35 MCV 96.2 fL (80.0-94.0) H 04/24/22 08:35 MCH 30.9 pg (27.0-31.0) 04/24/22 08:35 MCHC 32.2 g/dL (32.0-36.0) 04/24/22 08:35 RDW 18.1 % (12.0-15.0) H 04/24/22 08:35 Plt Count 31 10^3/uL (130-450) L* 04/24/22 08:35 MPV 10.4 fL (7.4-11.4) 04/24/22 08:35 Neut # (Auto) 1.4 10^3/uL (1.5-6.6) L 04/24/22 08:35 Lymph # (Auto) 0.4 10^3/uL (1.5-3.5) L 04/24/22 08:35 [place] # (Auto) 0.2 10^3/uL (0.0-1.0) 04/24/22 08:35 Eos # (Auto) 0.1 10^3/uL (0.0-0.7) 04/24/22 08:35 Baso # (Auto) 0.0 10^3/uL (0.0-0.1) 04/24/22 08:35 Absolute Nucleated RBC 0.00 x10^3/uL 04/24/22 08:35 Total Counted 100 04/23/22 05:09 Band Neuts % (Manual) 1 % (0-10) 04/23/22 05:09 Reactive Lymphs % (Man) 4 % 04/18/22 06:50 Abnorm Lymph % (Manual) 0 % 04/23/22 05:09 Metamyelocytes % 2 % (-0) H 04/19/22 06:35 Myelocytes % 1 % (-0) H 04/12/22 05:25 Nucleated RBC % 0.0 /100WBC 04/24/22 08:35 Neutrophils # (Manual) 1.1 10^3/uL (1.5-6.6) L 04/23/22 05:09 Lymphocytes # (Manual) 0.3 10^3/uL (1.5-3.5) L 04/23/22 05:09 Monocytes # (Manual) 0.1 10^3/uL (0.0-1.0) 04/23/22 05:09 Eosinophils # (Manual) 0.1 10^3/uL (0-0.7) 04/23/22 05:09 Basophils # (Manual) 0.0 10^3/uL (0-0.1) 04/23/22 05:09 Nucleated RBCs 1 % 04/16/22 05:07 Differential Comment MANUAL DIFFERENTIAL 04/23/22 05:09 Manual Slide Review Indicated 04/24/22 08:35 WBC Morphology NORMAL APPEARANCE (NORMAL) 04/21/22 06:25 Platelet Estimate DECREASED (<130,000) (NORMAL) 04/24/22 08:35 Platelet Morphology NORMAL APPEARANCE (NORMAL) 04/24/22 08:35 RBC Morph Micro Appear 1+ HYPOCHROMASIA (NORMAL) 1+ POLYCHROMASIA (NORMAL) 1+ OVALOCYTES (NORMAL) 04/24/22 08:35 RBC Morph Micro Appear 1+ HYPOCHROMASIA (NORMAL) 1+ POLYCHROMASIA (NORMAL) 1+ OVALOCYTES (NORMAL) 04/24/22 08:35 RBC Morph Micro Appear 1+ HYPOCHROMASIA (NORMAL) 1+ POLYCHROMASIA (NORMAL) 1+ OVALOCYTES (NORMAL) 04/24/22 08:35 PT 12.8 secs (9.9-12.6) H 04/02/22 05:49 INR 1.2 (0.8-1.2) 04/02/22 05:49 Sodium 132 mmol/L (135-145) L 04/24/22 08:35 Potassium 4.1 mmol/L (3.5-5.0) 04/24/22 08:35 Chloride 100 mmol/L (101-111) L 04/24/22 08:35 Carbon Dioxide 24 mmol/L (21-32) 04/24/22 08:35 Anion Gap 8.0 (6-13) 04/24/22 08:35 BUN 20 mg/dL (6-20) 04/24/22 08:35 Creatinine 0.8 mg/dL (0.6-1.2) 04/24/22 08:35 Estimated GFR (MDRD) 95 (>89) 04/24/22 08:35 Glucose 101 mg/dL (70-100) H 04/24/22 08:35 Calcium 8.0 mg/dL (8.5-10.3) L 04/24/22 08:35 Phosphorus 3.2 mg/dL (2.5-4.6) 04/22/22 05:20 Magnesium 1.9 mg/dL (1.7-2.8) 04/23/22 05:09 Total Bilirubin 0.4 mg/dL (0.2-1.0) 04/22/22 05:20 AST 17 IU/L (10-42) 04/22/22 05:20 ALT 20 IU/L (10-60) 04/22/22 05:20 Alkaline Phosphatase 59 IU/L (42-121) 04/22/22 05:20 Total Protein 3.9 g/dL (6.7-8.2) L 04/22/22 05:20 Albumin 1.7 g/dL (3.2-5.5) L 04/22/22 05:20 Globulin 2.2 g/dL (2.1-4.2) 04/22/22 05:20 Albumin/Globulin Ratio 0.8 (1.0-2.2) L 04/22/22 05:20 Prealbumin 13 mg/dL (18-45) L 04/22/22 05:20 Triglycerides 88 mg/dL (-149) 04/22/22 05:20 Lipase 21 U/L (22-51) L 04/02/22 05:49 Urine Color RED/BLOODY 04/02/22 11:40 Urine Clarity TURBID (CLEAR) 04/02/22 11:40 Urine pH 6.0 PH (5.0-7.5) 04/02/22 11:40 Ur Specific [place] 1.025 (1.002-1.030) 04/02/22 11:40 Urine Protein >=300 mg/dL (NEGATIVE) H 04/02/22 11:40 Urine Glucose (UA) NEGATIVE mg/dL (NEGATIVE) 04/02/22 11:40 Urine Ketones NEGATIVE mg/dL (NEGATIVE) 04/02/22 11:40 Urine Occult Blood LARGE (NEGATIVE) H 04/02/22 11:40 Urine Nitrite NEGATIVE (NEGATIVE) 04/02/22 11:40 Urine Bilirubin NEGATIVE (NEGATIVE) 04/02/22 11:40 Urine Urobilinogen 0.2 (NORMAL) E.U./dL (NORMAL) 04/02/22 11:40 Ur Leukocyte Esterase NEGATIVE (NEGATIVE) 04/02/22 11:40 Urine RBC TNTC /HPF (0-5) H 04/02/22 11:40 Urine WBC 6-10 /HPF (0-3) H 04/02/22 11:40 Ur Squamous Epith Cells NONE SEEN (<= Few) 04/02/22 11:40 Urine Bacteria None Seen /HPF (None Seen) 04/02/22 11:40 Urine Yeast PRESENT 04/02/22 11:40 Ur Microscopic Review INDICATED 04/02/22 11:40 Urine Culture Comments NOT INDICATED 04/02/22 11:40 Stl C. diff Tox B Gene POSITIVE (NEGATIVE) A* 04/05/22 13:50 SARS-CoV-2 (PCR) DETECTED A 04/12/22 15:45 Blood Type AB POSITIVE 04/19/22 08:20 Antibody Screen NEGATIVE 04/19/22 08:20 Crossmatch IS Only See Detail 04/19/22 08:20 - Procedures Procedures: Procedures TRANSFUSE NONAUT PLATELETS IN PERIPH VEIN, PERC (06/24/21)
[2022-04-24] MEDS: FAT EMULSION 20% 250 ML IV SCH (19:01)
[2022-04-24] MEDS: TPN (CLINIMIX E 5/15) 2,000 ML with MULTIVITAMIN 10 ML, TRACE ELEMENTS 1 ML, POTASSIUM ... IV SCH ×4 (19:02)
[2022-04-24] MEDS: ATORVASTATIN 10 MG TABLET PO SCH (21:32)
[2022-04-25] MEDS: SODIUM CHLORIDE FLUSH 0.9% 10 ML SYRINGE IVP SCH ×3 (01:31→17:56)
[2022-04-25] MEDS: PIPERACILLIN/TAZOBACTAM 3.375 GM in SODIUM CHLORIDE 0.9% MINIBAG 100 ML IV SCH ×4 (01:31→18:07)
[2022-04-25] MEDS: CARBOXYMETHYLCELLULOSE OPHTH DROPS EACHEYE SCH (05:02)
[2022-04-25] MEDS: HYDROmorphone 2 MG TABLET PO PRN ×4 (05:55→20:44)
[2022-04-25] MEDS: PANTOPRAZOLE 40 MG TABLET PO SCH (05:55)
[2022-04-25 06:32] LABS: BASOPHILS % (AUTO) 0.4 %; EOSINOPHILS % (AUTO) 2.6 %; HCT - HEMATOCRIT 24.4 % (42.0-52.0); LYMPHOCYTES % (AUTO) 20.3 %; MEAN CORPUSCULAR HEMOGLOBIN 31.5 pg (27.0-31.0); MEAN CORPUSCULAR HGB CONC 32.8 g/dL (32.0-36.0); MEAN CORPUSCULAR VOLUME 96.1 fL (80.0-94.0); MEAN PLATELET VOLUME 9.6 fL (7.4-11.4); NEUTROPHILS % (AUTO) 69.3 %; RED BLOOD COUNT 2.54 10^6/uL (4.70-6.10); RED CELL DISTRIBUTION WIDTH 17.9 % (12.0-15.0); WHITE BLOOD COUNT 2.3 x10^3/uL (4.8-10.8)
[2022-04-25 06:33] LABS: PLT - PLATELET COUNT 29 10^3/uL (130-450)
[2022-04-25 06:34] LABS: ABNORMAL LYMPHS % (MANUAL) 0 %
[2022-04-25 06:43] LABS: CALCIUM 7.9 mg/dL (8.5-10.3); CREATININE 0.9 mg/dL (0.6-1.2); POTASSIUM 3.9 mmol/L (3.5-5.0)
[2022-04-25 06:56] LABS: BAND NEUTROPHILS % (MANUAL) 1 %; LYMPHOCYTES # (MANUAL) 0.7 10^3/uL (1.5-3.5); LYMPHOCYTES % (MANUAL) 31 %; MONOCYTES # (MANUAL) 0.1 10^3/uL (0.0-1.0); NEUTROPHILS # (MANUAL) 1.4 10^3/uL (1.5-6.6)
[2022-04-25 06:58] LABS: DIFFERENTIAL COMMENT MANUAL DIFFERENTIAL; PLATELET ESTIMATE, MANUAL DECREASED (<130,000) (NORMAL); PLATELET MORPHOLOGY NORMAL APPEARANCE (NORMAL); WBC MORPHOLOGY (MULTIPLE) NORMAL APPEARANCE (NORMAL)
[2022-04-25] MEDS: CALCIUM CARB (OYSTER SHELL) 500 MG TABLET PO SCH (08:20)
[2022-04-25] MEDS: predniSONE 20 MG TABLET PO SCH (08:20)
[2022-04-25] MEDS: CHOLECALCIFEROL 25 MCG TABLET PO SCH (08:20)
[2022-04-25] MEDS: AMIODARONE 200 MG TABLET PO SCH (08:20)
[2022-04-25] MEDS: TAMSULOSIN 0.4 MG CAPSULE PO SCH (08:20)
[2022-04-25] MEDS: prednisoLONE 1% OPHTH DROPS 75 DROPS/5 ML BOTTLE LEFTEYE SCH (08:21)
[2022-04-25] MEDS: INSULIN LISPRO 300 UNIT/3 ML PEN SUBQ SCH ×4 (08:22→20:45)
[2022-04-25] MEDS: OFLOXACIN 0.3% OPHTH DROPS LEFTEYE SCH (08:22)
[2022-04-25] MEDS: FLUTICASONE NASAL SPRAY NAS SCH (08:22)
[2022-04-25] MEDS: LIDOCAINE OINTMENT 5% 35.44 GM TUBE TOP SCH ×4 (08:23→20:45)
[2022-04-25] MEDS ORDERED: FUROSEMIDE 20 MG TABLET PO SCH ×2 (09:00→09:04)
[2022-04-25] MEDS: TPN (CLINIMIX E 5/15) 2,000 ML with MULTIVITAMIN 10 ML, TRACE ELEMENTS 1 ML, POTASSIUM ... IV SCH ×4 (14:58)
--- NOTE | 2022-04-25 16:14 | PROVIDER PROGRESS NOTE ---
Assessment/Plan - Problem List (1) Diverticular hemorrhage Assessment/Plan: Presented as hematochezia on admission. Had C. difficile colitis. Was treated with po Vanco. Then he had even more hematochezia and CT confirmed focal segmental diverticulitis. Then we started him on budesonide as requested by Dr. Maradiaga on the bone marrow team, which was later stopped and started him on single agent Zosyn. He has needed blood transfusions q1-3 days, while having bloody BMs He was accepted in transfer by and we have called daily for a wwek and no beds available. I updated the transfer center on his problems, lab results and his colonic bleeding and blood and plt transfusion needs on 04/24. There are no beds for him to be transferred into today 04/25. 2. Sigmoid diverticulitis Presented as hematochezia on admission. Had C. difficile colitis. Was treated with po Vanco. Then he had even more hematochezia and CT confirmed focal segmental diverticulitis. First he was on budesonide as requested by Dr. Maradiaga on the bone marrow team, which was later stopped and started him on Zosyn. He has needed blood transfusions due to bloody BMs 3. Nose bleed This started today 04/25. He says he has had it at home. He applied pressure and has been holding tissues in his nostrils as well as ice packs placed by the nurse. Plan: Continue with topical management We will consider a nasal pack by the ER doctor if needed 4. Anemia. His CBC is carefully being watched to see when needs transfusion. I reviewed all labs. Hgb 8 Plan: Today he will not be transfused Transfuse if Hgb <6.8 5. Leg edema This started slowly since he was put on TPN to get calories, then he gained 20 pounds since that time. Lasix 20 mg IV daily has been given for 3 days with signif decrease in leg edema and even skin wrinkling seen on thighs Plan: Continue to follow I's and O Will change the iv Lasix to po Lasix and give on Mon, Wed, Fri, and add hold parameters for low BP TPN to stop after today, as he is eating with an appetite 6. Acute hemorrhagic cystitis He continues with a re-inserted [place]. The hematuria is up and down. Urology input would be helpful, at a larger hospital 7. Pancytopenia Per discussion with his oncologist Dr. Danyelle Ortiz earlier this admission, this is his new normal however it has been worsened by blood loss in the urine and from his colon 8. Thrombocytopenia Per discussion with his oncologist Dr. Danyelle Ortiz earlier this admission, this is his new normal Plan: Platelet transfusions if platelet count goes below 30 9. 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 Treated and cured. History of myelodysplastic syndrome and he had a bone marrow transplant in 2020. As of April 11, Oncology concluded that he would benefit from higher level of care transfer. We called several facilities. [facility] excepted him. Dr Amador Brooks has been the physician accepting him. We are waiting for bed assignment at . 10. Sacral decubitus ulcer It is located more on the right buttock. Stage II. Getting Desitin, offloading, and TPN to help him nutrition 11. Severe protein calorie malnutrition. TPN has been infusing for about 2 weeks. Plan: TPN to stop after today, as he is eating with an appetite 12. Chronic diastolic heart failure. He developed anasarca from TPN. Lasix started Plan: Since TPN is stopping, Lasix is going to 20 mg just on Monday and we will plan on canceling the Lasix after a week 13. Orthostatic hypotension. He is now on his regular prednisone of [address] Dr[address] Maradiaga's recommendation. Blood pressure is relatively stable since April 08. 14. Paroxysmal A-fib HR is stable. He is no longer on anticoagulation because of bleeding 15. History of DVT and PE. Not on anticoagulation. He may need a Goran filter but we do not do that here 16. Chronic kidney disease stable. Labs all reviewed. Renal labs have been stable. 17. Hypokalemia He is getting potassium in his TPN. The potassium amount was increased Plan: We will also give oral potassium 18. COVID-positive Asymptomatic. 19. Anal lesion. Benign pathology on biopsy. 20. C. difficile colitis. Completed 11 days of oral vancomycin on April 15. - Current Meds Current Meds: Current Medications Generic Name Dose Route Start Last Admin Trade Name Freq PRN Reason Stop Dose Admin Acetaminophen 650 mg 04/02/22 16:39 02/09/23 21:22 Acetaminophen 325 Mg Tablet PO 650 mg Q4HR PRN Administration Pain 1 to 4, or Fever Amiodarone HCl 100 mg 04/08/22 09:00 04/25/22 08:20 Amiodarone 200 Mg Tablet PO 100 mg DAILY JUJU Administration Atorvastatin Calcium 10 mg 04/04/22 21:00 04/24/22 21:32 Atorvastatin 10 Mg Tablet PO 10 mg 2100 JUJU Administration Calcium Carbonate/Glycine 500 mg 04/04/22 09:00 04/25/22 08:20 Calcium Carb (Oyster Shell) 500 Mg Tablet PO 500 mg 0900 [facility] Administration Calcium Carbonate/Glycine 500 mg 04/04/22 18:17 04/15/22 21:08 Calcium Carbonate Chew 500 Mg Tablet PO 500 mg TID PRN Administration INDIGESTION Cholecalciferol 50 mcg 04/04/22 17:00 04/25/22 08:20 Cholecalciferol 25 Mcg Tablet PO 50 mcg DAILY [facility] Administration Fluticasone Propionate 1 sprays 04/05/22 09:00 04/25/22 08:22 Fluticasone Nasal [place] SHENA 1 spr DAILY [facility] Administration Heparin Sodium (Beef Lung) 30 - 50 unit 04/03/22 16:08 04/04/22 08:25 Heparin Flush 50 Units/5 Ml Syringe IVP 50 unit PRN PRN Administration Port Protocol (<24 hours) Hydromorphone HCl 4 mg 04/19/22 00:06 04/25/22 16:06 Hydromorphone 2 Mg Tablet PO 4 mg Q4HR PRN Administration Severe Pain Piperacillin Sod/Tazobactam 100 mls @ 200 mls/hr 04/22/22 00:00 04/25/22 12:10 Sod 3.375 gm/ Sodium Chloride IV Infused Q6H [facility] Infusion Insulin Human Lispro 1 - 9 unit 04/15/22 08:00 04/25/22 11:28 Insulin Lispro 300 Unit/3 Ml Pen SUBQ Not Given 0800,1200,1700,2100 [facility] Protocol Lidocaine 1 applic 04/15/22 13:00 04/25/22 12:19 Lidocaine Ointment 5% 35.44 Gm Tube TOP 1 applic QID JUJU Administration Multi-Ingredient Ointment 1 applic 04/04/22 10:11 04/22/22 21:18 Zinc Oxide 20% Oint 30 Gm Tube TOP 1 applic PRN PRN Administration Skin Care Ofloxacin 1 drops 04/04/22 09:00 04/25/22 08:22 Ofloxacin 0.3% Ophth Drops LEFTEYE 1 drops DAILY JUJU Administration Ondansetron HCl 4 mg 04/02/22 16:39 04/05/22 02:20 Ondansetron 4 Mg/2 Ml Vial IVP 4 mg Q6HR PRN Administration Nausea / Vomiting Oxycodone HCl 5 mg 04/05/22 08:52 04/22/22 14:31 Oxycodone 5 Mg Tablet PO 5 mg Q6HR PRN Administration Pain 5 to 7 Pantoprazole Sodium 40 mg 04/04/22 19:00 04/25/22 05:55 Pantoprazole 40 Mg Tablet PO 40 mg QDAC JUJU Administration Prednisolone 1 drops 04/04/22 09:00 04/25/22 08:21 Prednisolone 1% Ophth Drops 75 Drops/5 Ml Bottle LEFTEYE 1 drops DAILY JUJU Administration Prednisone 10 mg 04/16/22 08:00 04/25/22 08:20 Prednisone 20 Mg Tablet PO 10 mg DAILYWM JUJU Administration Sodium Chloride 10 ml 04/02/22 16:39 04/19/22 06:29 Sodium Chloride Flush 0.9% 10 Ml Syringe IVP 30 ml PRN PRN Administration NEEDED PER PROVIDER ORDERS Sodium Chloride 10 ml 04/02/22 17:00 04/25/22 08:30 Sodium Chloride Flush 0.9% 10 Ml Syringe IVP 10 ml 0100,0900,1700 JUJU Administration Tamsulosin HCl 0.4 mg 04/08/22 08:02 04/25/22 08:20 Tamsulosin 0.4 Mg Capsule PO 0.4 mg DAILY JUJU Administration Throat Lozenges 1 lozenge 04/19/22 02:53 04/19/22 05:37 Benzocaine/Menthol Lozenge MM 1 lozenge Q2HR PRN Administration Throat pain Witch Kasey/Glycerin 1 pad 04/03/22 15:28 04/21/22 05:19 Witch [place]/Glycerin 1 Pad TOP 1 pad PRN PRN Administration ITCHING Zinc Oxide 113 gm 04/06/22 09:26 04/24/22 16:53 Cod Liver Oil/Zinc Oxide 113 Gm Tube TOP 1 applic PRN PRN Administration Skin Care - Lab Result Fish Bone Diagrams: 04/25/22 06:02 04/25/22 06:02 - Additional Planning My Orders: My Active Orders 04/25/22 09:06 Carboxymethylcellulose 1% Opht [Refresh 1% Ophth Drops] 1 drops EACHEYE TID PRN 04/25/22 12:30 Miscellaenous Nursing Order [RC] ONCE 04/26/22 05:00 BMP - BASIC METABOLIC PANEL [CHEM] DAILYLAB CBC - COMP BLD CT W/AUTO DIFF [HEME] DAILYLAB 04/27/22 05:00 BMP - BASIC METABOLIC PANEL [CHEM] DAILYLAB CBC - COMP BLD CT W/AUTO DIFF [HEME] DAILYLAB 04/27/22 13:00 Furosemide [Lasix] 20 mg PO MOWEFR 04/28/22 05:00 BMP - BASIC METABOLIC PANEL [CHEM] DAILYLAB CBC - COMP BLD CT W/AUTO DIFF [HEME] DAILYLAB 04/29/22 05:00 BMP - BASIC METABOLIC PANEL [CHEM] DAILYLAB CBC - COMP BLD CT W/AUTO DIFF [HEME] DAILYLAB Subjective - Subjective Patient Reports: Feeling Better (Today is the first day that he has energy, has an appetite and completely ate solid food for breakfast and lunch and has not had a bloody BM for the past 2 days until today again.) Objective Vital Signs: Vital Signs - 24 hr 04/25/22 04/25/22 04/25/22 00:11 07:49 15:54 Temperature 36.9 C 36.6 C 36.9 C Heart Rate [ 92 90 87 Brachial] Respiratory 18 18 14 Rate Blood Pressure 107/57 L 100/51 L 107/59 L [Right Brachial artery] O2 Saturation 97 97 100 Oxygen O2 Source Room air I&O (Last 24 Hrs): Intake and Output Totals x24h 04/23/22 04/24/22 04/25/22 23:59 23:59 23:59 Intake Total 2989.667 2900.333 2135.333 Output Total 6400 4300 1450 Balance -3410.333 -1399.667 685.333 General: Alert, Oriented x3 HEENT: Mucous membr. moist/pink, Other (L eye patched) Neuro: Alert, Non Focal Cardiovascular: Regular rate, No murmurs Respiratory: No respiratory distress, Breath sounds nml Abdomen: Normal bowel sounds, Soft, No tenderness Extremities: Other (1+ edema of posterior calves and thighs up to buttocks) - Results Results: Laboratory Results WBC 2.3 x10^3/uL (4.8-10.8) L 04/25/22 06:02 RBC 2.54 10^6/uL (4.70-6.10) L 04/25/22 06:02 Hgb 8.0 g/dL (14.0-18.0) L 04/25/22 06:02 Hct 24.4 % (42.0-52.0) L 04/25/22 06:02 MCV 96.1 fL (80.0-94.0) H 04/25/22 06:02 MCH 31.5 pg (27.0-31.0) H 04/25/22 06:02 MCHC 32.8 g/dL (32.0-36.0) 04/25/22 06:02 RDW 17.9 % (12.0-15.0) H 04/25/22 06:02 Plt Count 29 10^3/uL (130-450) L* 04/25/22 06:02 MPV 9.6 fL (7.4-11.4) 04/25/22 06:02 Neut # (Auto) Not Reportable 04/25/22 06:02 Lymph # (Auto) Not Reportable 04/25/22 06:02 [place] # (Auto) Not Reportable 04/25/22 06:02 Eos # (Auto) Not Reportable 04/25/22 06:02 Baso # (Auto) Not Reportable 04/25/22 06:02 Absolute Nucleated RBC Not Reportable 04/25/22 06:02 Total Counted 100 04/25/22 06:02 Band Neuts % (Manual) 1 % (0-10) 04/25/22 06:02 Reactive Lymphs % (Man) 4 % 04/18/22 06:50 Abnorm Lymph % (Manual) 0 % 04/25/22 06:02 Metamyelocytes % 2 % (-0) H 04/19/22 06:35 Myelocytes % 1 % (-0) H 04/12/22 05:25 Nucleated RBC % Not Reportable 04/25/22 06:02 Neutrophils # (Manual) 1.4 10^3/uL (1.5-6.6) L 04/25/22 06:02 Lymphocytes # (Manual) 0.7 10^3/uL (1.5-3.5) L 04/25/22 06:02 Monocytes # (Manual) 0.1 10^3/uL (0.0-1.0) 04/25/22 06:02 Eosinophils # (Manual) 0.0 10^3/uL (0-0.7) 04/25/22 06:02 Basophils # (Manual) 0.0 10^3/uL (0-0.1) 04/25/22 06:02 Nucleated RBCs 1 % 04/16/22 05:07 Differential Comment MANUAL DIFFERENTIAL 04/25/22 06:02 Manual Slide Review Indicated 04/24/22 08:35 WBC Morphology NORMAL APPEARANCE (NORMAL) 04/25/22 06:02 Platelet Estimate DECREASED (<130,000) (NORMAL) 04/25/22 06:02 Platelet Morphology NORMAL APPEARANCE (NORMAL) 04/25/22 06:02 RBC Morph Micro Appear 1+ ANISOCYTOSIS (NORMAL) 1+ OVALOCYTES (NORMAL) 1+ POLYCHROMASIA (NORMAL) 04/25/22 06:02 RBC Morph Micro Appear 1+ ANISOCYTOSIS (NORMAL) 1+ OVALOCYTES (NORMAL) 1+ POLYCHROMASIA (NORMAL) 04/25/22 06:02 RBC Morph Micro Appear 1+ ANISOCYTOSIS (NORMAL) 1+ OVALOCYTES (NORMAL) 1+ POLYCHROMASIA (NORMAL) 04/25/22 06:02 PT 12.8 secs (9.9-12.6) H 04/02/22 05:49 INR 1.2 (0.8-1.2) 04/02/22 05:49 Sodium 133 mmol/L (135-145) L 04/25/22 06:02 Potassium 3.9 mmol/L (3.5-5.0) 04/25/22 06:02 Chloride 100 mmol/L (101-111) L 04/25/22 06:02 Carbon Dioxide 24 mmol/L (21-32) 04/25/22 06:02 Anion Gap 9.0 (6-13) 04/25/22 06:02 BUN 22 mg/dL (6-20) H 04/25/22 06:02 Creatinine 0.9 mg/dL (0.6-1.2) 04/25/22 06:02 Estimated GFR (MDRD) 83 (>89) L 04/25/22 06:02 Glucose 100 mg/dL (70-100) 04/25/22 06:02 Calcium 7.9 mg/dL (8.5-10.3) L 04/25/22 06:02 Phosphorus 3.2 mg/dL (2.5-4.6) 04/22/22 05:20 Magnesium 1.9 mg/dL (1.7-2.8) 04/23/22 05:09 Total Bilirubin 0.4 mg/dL (0.2-1.0) 04/22/22 05:20 AST 17 IU/L (10-42) 04/22/22 05:20 ALT 20 IU/L (10-60) 04/22/22 05:20 Alkaline Phosphatase 59 IU/L (42-121) 04/22/22 05:20 Total Protein 3.9 g/dL (6.7-8.2) L 04/22/22 05:20 Albumin 1.7 g/dL (3.2-5.5) L 04/22/22 05:20 Globulin 2.2 g/dL (2.1-4.2) 04/22/22 05:20 Albumin/Globulin Ratio 0.8 (1.0-2.2) L 04/22/22 05:20 Prealbumin 13 mg/dL (18-45) L 04/22/22 05:20 Triglycerides 88 mg/dL (-149) 04/22/22 05:20 Lipase 21 U/L (22-51) L 04/02/22 05:49 Urine Color RED/BLOODY 04/02/22 11:40 Urine Clarity TURBID (CLEAR) 04/02/22 11:40 Urine pH 6.0 PH (5.0-7.5) 04/02/22 11:40 Ur Specific [place] 1.025 (1.002-1.030) 04/02/22 11:40 Urine Protein >=300 mg/dL (NEGATIVE) H 04/02/22 11:40 Urine Glucose (UA) NEGATIVE mg/dL (NEGATIVE) 04/02/22 11:40 Urine Ketones NEGATIVE mg/dL (NEGATIVE) 04/02/22 11:40 Urine Occult Blood LARGE (NEGATIVE) H 04/02/22 11:40 Urine Nitrite NEGATIVE (NEGATIVE) 04/02/22 11:40 Urine Bilirubin NEGATIVE (NEGATIVE) 04/02/22 11:40 Urine Urobilinogen 0.2 (NORMAL) E.U./dL (NORMAL) 04/02/22 11:40 Ur Leukocyte Esterase NEGATIVE (NEGATIVE) 04/02/22 11:40 Urine RBC TNTC /HPF (0-5) H 04/02/22 11:40 Urine WBC 6-10 /HPF (0-3) H 04/02/22 11:40 Ur Squamous Epith Cells NONE SEEN (<= Few) 04/02/22 11:40 Urine Bacteria None Seen /HPF (None Seen) 04/02/22 11:40 Urine Yeast PRESENT 04/02/22 11:40 Ur Microscopic Review INDICATED 04/02/22 11:40 Urine Culture Comments NOT INDICATED 04/02/22 11:40 Stl C. diff Tox B Gene POSITIVE (NEGATIVE) A* 04/05/22 13:50 SARS-CoV-2 (PCR) DETECTED A 04/12/22 15:45 Blood Type AB POSITIVE 04/19/22 08:20 Antibody Screen NEGATIVE 04/19/22 08:20 Crossmatch IS Only See Detail 04/19/22 08:20 - Procedures Procedures: Procedures TRANSFUSE NONAUT PLATELETS IN PERIPH VEIN, PERC (06/24/21)
[2022-04-25] MEDS: ACETAMINOPHEN 325 MG TABLET PO PRN (17:56)
[2022-04-25] MEDS: CARBOXYMETHYLCELLULOSE OPHTH DROPS EACHEYE PRN ×2 (18:05→20:44)
[2022-04-25] MEDS: ATORVASTATIN 10 MG TABLET PO SCH (20:44)
[2022-04-26] MEDS: PIPERACILLIN/TAZOBACTAM 3.375 GM in SODIUM CHLORIDE 0.9% MINIBAG 100 ML IV SCH ×4 (00:28→18:34)
[2022-04-26] MEDS: SODIUM CHLORIDE FLUSH 0.9% 10 ML SYRINGE IVP SCH ×3 (00:29→18:35)
[2022-04-26] MEDS: HYDROmorphone 2 MG TABLET PO PRN ×4 (00:29→21:14)
[2022-04-26] MEDS: ZINC OXIDE 20% OINT 30 GM TUBE TOP PRN (00:30)
[2022-04-26 05:01] LABS: BASOPHILS % (AUTO) 0.4 %; EOSINOPHILS % (AUTO) 2.7 %; HCT - HEMATOCRIT 22.8 % (42.0-52.0); HGB - HEMOGLOBIN 7.3 g/dL (14.0-18.0); LYMPHOCYTES % (AUTO) 15.6 %; MEAN CORPUSCULAR HEMOGLOBIN 30.9 pg (27.0-31.0); MEAN CORPUSCULAR VOLUME 96.6 fL (80.0-94.0); MEAN PLATELET VOLUME 10.9 fL (7.4-11.4); MONOCYTES % (AUTO) 7.6 %; NEUTROPHILS % (AUTO) 73.7 %; RED BLOOD COUNT 2.36 10^6/uL (4.70-6.10); RED CELL DISTRIBUTION WIDTH 17.9 % (12.0-15.0); WHITE BLOOD COUNT 2.2 x10^3/uL (4.8-10.8)
[2022-04-26 05:04] LABS: PLT - PLATELET COUNT 22 10^3/uL (130-450)
[2022-04-26 05:06] LABS: ABNORMAL LYMPHS % (MANUAL) 0 %
[2022-04-26 05:17] LABS: CALCIUM 8.2 mg/dL (8.5-10.3); CREATININE 0.9 mg/dL (0.6-1.2); POTASSIUM 3.9 mmol/L (3.5-5.0)
[2022-04-26 05:19] LABS: BAND NEUTROPHILS % (MANUAL) 1 %; LYMPHOCYTES # (MANUAL) 0.4 10^3/uL (1.5-3.5); LYMPHOCYTES % (MANUAL) 18 %; MONOCYTES # (MANUAL) 0.2 10^3/uL (0.0-1.0); NEUTROPHILS # (MANUAL) 1.6 10^3/uL (1.5-6.6)
[2022-04-26 05:21] LABS: DIFFERENTIAL COMMENT MANUAL DIFFERENTIAL; PLATELET ESTIMATE, MANUAL DECREASED (<130,000) (NORMAL); PLATELET MORPHOLOGY NORMAL APPEARANCE (NORMAL); WBC MORPHOLOGY (MULTIPLE) NORMAL APPEARANCE (NORMAL)
[2022-04-26] MEDS: PANTOPRAZOLE 40 MG TABLET PO SCH (06:02)
[2022-04-26] MEDS: CARBOXYMETHYLCELLULOSE OPHTH DROPS EACHEYE PRN ×3 (06:16→21:14)
[2022-04-26] MEDS: OFLOXACIN 0.3% OPHTH DROPS LEFTEYE SCH (09:00)
[2022-04-26] MEDS: FLUTICASONE NASAL SPRAY NAS SCH (09:00)
[2022-04-26] MEDS: predniSONE 20 MG TABLET PO SCH (09:00)
[2022-04-26] MEDS: TAMSULOSIN 0.4 MG CAPSULE PO SCH (09:00)
[2022-04-26] MEDS: prednisoLONE 1% OPHTH DROPS 75 DROPS/5 ML BOTTLE LEFTEYE SCH (09:00)
[2022-04-26] MEDS: LIDOCAINE OINTMENT 5% 35.44 GM TUBE TOP SCH ×4 (09:00→21:14)
[2022-04-26] MEDS: CALCIUM CARB (OYSTER SHELL) 500 MG TABLET PO SCH (09:00)
[2022-04-26] MEDS: AMIODARONE 200 MG TABLET PO SCH (09:00)
[2022-04-26] MEDS: CHOLECALCIFEROL 25 MCG TABLET PO SCH (09:00)
[2022-04-26] MEDS: INSULIN LISPRO 300 UNIT/3 ML PEN SUBQ SCH ×4 (12:12→21:13)
[2022-04-26] MEDS: SODIUM CHLORIDE FLUSH 0.9% 10 ML SYRINGE IVP PRN (13:46)
[2022-04-26] MEDS: ACETAMINOPHEN 325 MG TABLET PO PRN (18:38)
--- NOTE | 2022-04-26 19:16 | PROVIDER PROGRESS NOTE ---
Progress Note April 26, 2022 7 PM [facility] states that they still do not have a bed. They discussed the case with his nurse. Patient is feeling better. Still having occasional rectal bleeding. But abdominal pain is better. Rectal pain is better. No fevers. Temperature 37.2. Heart rate 93. Blood pressure 99/52. Respirations 16. 97% on room air. Pale, cachectic elderly gentleman who looks much older than stated age. Wearing his will have his head for coldness. Left eye continues to be mainly scarred shut on his lids. Dried blood in his nares. He reaches up to pick some of it out I told him not to pick his nose. Lungs are clear with diminished breath sounds and no increased respiratory effort Regular rate and rhythm Abdomen is soft, denies any tenderness. No rebound or guarding. Quiet bowel sounds. Extremities with mild edema. Labs: White cell count 2.2, hemoglobin 7.3, platelets 22 Sodium 134, potassium 3.9, BUN 25, creatinine 0.9 Assessment/plan 1. Diverticular hemorrhage. No need for blood transfusion today. Hemoglobin is stable at 7.3. He is close to needing transfusion if he drops below 7. Even though he is felt to have diverticular bleeding, with diverticulitis, requiring Zosyn, his pain has been well controlled. 2. Sigmoid diverticulitis. On admission he had C. difficile colitis. That was successfully treated with vancomycin. He was then started on budesonide for his bone marrow, and then developed recurrent rectal blood. CT showed diverticulitis. He has been on Zosyn since that time. That was started on April 22. After 7 days, stop zosyn. 3. Nosebleed April 25. Still present off and on today. So far not needing a nasal pack. 4. Pancytopenia. Cell count is carefully being monitored for white cells, red cells, and platelets and he is being transfused as needed. No transfusion today transfuse platelets if below 50,000 and bleeding. Transfuse platelets if below 30,000 and not bleeding. No treatment for low white cell count. Transfuse if hemoglobin is less than 7. 4. Anasarca. He developed edema after being put on TPN. He gained close to 20 pounds of water weight. Lasix 20 mg IV push has been given for 3 days and he has improved tremendously. He had gone up to 85 kg and is now down to 67 kg. We will continue Lasix. 6. Severe protein calorie malnutrition. TPN stopped last night. Now on some solid food. He says he feels good enough to start eating. I am hoping that his nutrition status will improve.
[2022-04-26] MEDS: ATORVASTATIN 10 MG TABLET PO SCH (21:14)
[2022-04-27] MEDS: SODIUM CHLORIDE FLUSH 0.9% 10 ML SYRINGE IVP SCH ×3 (01:02→18:01)
[2022-04-27] MEDS: PIPERACILLIN/TAZOBACTAM 3.375 GM in SODIUM CHLORIDE 0.9% MINIBAG 100 ML IV SCH ×4 (01:02→18:01)
[2022-04-27] MEDS: HYDROmorphone 2 MG TABLET PO PRN ×4 (03:08→20:20)
[2022-04-27] MEDS: ZINC OXIDE 20% OINT 30 GM TUBE TOP PRN ×3 (05:00→17:50)
[2022-04-27] MEDS: PANTOPRAZOLE 40 MG TABLET PO SCH (06:16)
[2022-04-27 06:23] LABS: BASOPHILS % (AUTO) 0.3 %; EOSINOPHILS # (AUTO) 0.1 10^3/uL (0.0-0.7); EOSINOPHILS % (AUTO) 2.3 %; HCT - HEMATOCRIT 22.8 % (42.0-52.0); HGB - HEMOGLOBIN 7.2 g/dL (14.0-18.0); LYMPHOCYTES # (AUTO) 0.3 10^3/uL (1.5-3.5); LYMPHOCYTES % (AUTO) 10.1 %; MEAN CORPUSCULAR HEMOGLOBIN 30.6 pg (27.0-31.0); MEAN CORPUSCULAR HGB CONC 31.6 g/dL (32.0-36.0); MEAN PLATELET VOLUME 9.7 fL (7.4-11.4); MONOCYTES # (AUTO) 0.3 10^3/uL (0.0-1.0); MONOCYTES % (AUTO) 8.5 %; NEUTROPHILS # (AUTO) 2.4 10^3/uL (1.5-6.6); NEUTROPHILS % (AUTO) 78.5 %; RED BLOOD COUNT 2.35 10^6/uL (4.70-6.10); RED CELL DISTRIBUTION WIDTH 18.2 % (12.0-15.0); WHITE BLOOD COUNT 3.1 x10^3/uL (4.8-10.8)
[2022-04-27 06:24] LABS: PLT - PLATELET COUNT 22 10^3/uL (130-450)
[2022-04-27 06:25] LABS: SLIDE REVIEW? Indicated
[2022-04-27 06:28] LABS: CALCIUM 8.1 mg/dL (8.5-10.3); POTASSIUM 3.8 mmol/L (3.5-5.0)
[2022-04-27 06:34] LABS: PLATELET ESTIMATE, MANUAL DECREASED (<130,000) (NORMAL); PLATELET MORPHOLOGY NORMAL APPEARANCE (NORMAL); RBC MORPHOLOGY (MULTIPLE) 2+ ANISOCYTOSIS (NORMAL); WBC MORPHOLOGY (MULTIPLE) NORMAL APPEARANCE (NORMAL)
[2022-04-27] MEDS: AMIODARONE 200 MG TABLET PO SCH (09:01)
[2022-04-27] MEDS: FLUTICASONE NASAL SPRAY NAS SCH (09:01)
[2022-04-27] MEDS: CALCIUM CARB (OYSTER SHELL) 500 MG TABLET PO SCH (09:02)
[2022-04-27] MEDS: predniSONE 20 MG TABLET PO SCH (09:02)
[2022-04-27] MEDS: CHOLECALCIFEROL 25 MCG TABLET PO SCH (09:03)
[2022-04-27] MEDS: TAMSULOSIN 0.4 MG CAPSULE PO SCH (09:03)
[2022-04-27] MEDS: LIDOCAINE OINTMENT 5% 35.44 GM TUBE TOP SCH ×4 (09:04→20:21)
[2022-04-27] MEDS: prednisoLONE 1% OPHTH DROPS 75 DROPS/5 ML BOTTLE LEFTEYE SCH (09:04)
[2022-04-27] MEDS: INSULIN LISPRO 300 UNIT/3 ML PEN SUBQ SCH ×4 (09:05→20:52)
[2022-04-27] MEDS: OFLOXACIN 0.3% OPHTH DROPS LEFTEYE SCH (09:05)
[2022-04-27] MEDS: oxyCODONE 5 MG TABLET PO PRN (09:09)
[2022-04-27] MEDS: FUROSEMIDE 20 MG TABLET PO SCH (12:58)
--- NOTE | 2022-04-27 15:20 | PROVIDER PROGRESS NOTE ---
Progress Note April 27, 2022 3:17 PM We are in a holding pattern. Have been in a holding pattern for close to 2 weeks. [facility] has accepted him but we have been awaiting a bed. We call every day and so far there is no bed availability. He continues to have pancytopenia. His acute medical problems of why he presented with hemorrhagic cystitis and C. difficile colitis have resolved or improved and we have ongoing intermitten hematuria, hemtochezia (from diverticular bleeding/diverticulitis), and most lately nose bleeds. Slowly improving his appetite and his TPN stopped eveing of 04/25 and now on regular diet and eating 75% to 100%. He denies cough, sob, but is exhausted. An effort to get out of bed and move but he only works w PT intermittently depending on mood and endurance ability Active Medications Acetaminophen (Acetaminophen 325 Mg Tablet) 650 mg PO Q4HR PRN PRN Reason: Pain 1 to 4, or Fever Last Admin: 04/26/22 18:38 Dose: 650 mg Amiodarone HCl (Amiodarone 200 Mg Tablet) 100 mg PO DAILY [facility] Last Admin: 04/27/22 09:01 Dose: 100 mg Atorvastatin Calcium (Atorvastatin 10 Mg Tablet) 10 mg PO 2100 [facility] Last Admin: 04/26/22 21:14 Dose: 10 mg Calcium Carbonate/Glycine (Calcium Carb (Oyster Shell) 500 Mg Tablet) 500 mg PO 0900 [facility] Last Admin: 04/27/22 09:02 Dose: 500 mg Calcium Carbonate/Glycine (Calcium Carbonate Chew 500 Mg Tablet) 500 mg PO TID PRN PRN Reason: INDIGESTION Last Admin: 04/15/22 21:08 Dose: 500 mg Carboxymethylcellulose (Carboxymethylcellulose Ophth Drops) 1 drops EACHEYE TID PRN PRN Reason: Dry Eye Last Admin: 04/26/22 21:14 Dose: 1 drops Cholecalciferol (Cholecalciferol 25 Mcg Tablet) 50 mcg PO DAILY [facility] Last Admin: 04/27/22 09:03 Dose: 50 mcg Fluticasone Propionate (Fluticasone Nasal [place]) 1 sprays SHENA DAILY [facility] Last Admin: 04/27/22 09:01 Dose: 1 spr Furosemide (Furosemide 20 Mg Tablet) 20 mg PO MOWEFR [facility] Last Admin: 04/27/22 12:58 Dose: 20 mg Heparin Sodium (Beef Lung) (Heparin Flush 50 Units/5 Ml Syringe) 30 - 50 unit IVP PRN PRN PRN Reason: Port Protocol (<24 hours) Last Admin: 04/04/22 08:25 Dose: 50 unit Hydromorphone HCl (Hydromorphone 2 Mg Tablet) 4 mg PO Q4HR PRN PRN Reason: Severe Pain Last Admin: 04/27/22 03:08 Dose: 4 mg Piperacillin Sod/Tazobactam (Sod 3.375 gm/ Sodium Chloride) 100 mls @ 200 mls/hr IV Q6H [facility] Last Infusion: 04/27/22 13:40 Dose: Infused Insulin Human Lispro (Insulin Lispro 300 Unit/3 Ml Pen) 1 - 9 unit SUBQ 0800,1200,1700,2100 [facility]; Protocol Last Admin: 04/27/22 12:53 Dose: Not Given Lidocaine (Lidocaine Ointment 5% 35.44 Gm Tube) 1 applic TOP QID [facility] Last Admin: 04/27/22 12:54 Dose: 1 applic Multi-Ingred Cream/Lotion/Oil/Oint (Mineral Oil/Petrolat Ophth Oint) 1 applic EACHEYE QPM PRN PRN Reason: Dry Eye Multi-Ingredient Ointment (Zinc Oxide 20% Oint 30 Gm Tube) 1 applic TOP PRN PRN PRN Reason: Skin Care Last Admin: 04/27/22 09:04 Dose: 1 applic Ofloxacin (Ofloxacin 0.3% Ophth Drops) 1 drops LEFTEYE DAILY [facility] Last Admin: 04/27/22 09:05 Dose: 1 drops Ondansetron HCl (Ondansetron Odt 4 Mg Tablet) 4 mg TL Q6HR PRN PRN Reason: Nausea / Vomiting Ondansetron HCl (Ondansetron 4 Mg/2 Ml Vial) 4 mg IVP Q6HR PRN PRN Reason: Nausea / Vomiting Last Admin: 04/05/22 02:20 Dose: 4 mg Oxycodone HCl (Oxycodone 5 Mg Tablet) 5 mg PO Q6HR PRN PRN Reason: Pain 5 to 7 Last Admin: 04/27/22 09:09 Dose: 5 mg Pantoprazole Sodium (Pantoprazole 40 Mg Tablet) 40 mg PO QDAC [facility] Last Admin: 04/27/22 06:16 Dose: 40 mg Prednisolone (Prednisolone 1% Ophth Drops 75 Drops/5 Ml Bottle) 1 drops LEFTEYE DAILY [facility] Last Admin: 04/27/22 09:04 Dose: 1 drops Prednisone (Prednisone 20 Mg Tablet) [facility] Last Admin: 04/27/22 09:02 Dose: 10 mg Sodium Chloride (Sodium Chloride Flush 0.9% 10 Ml Syringe) 10 ml IVP PRN PRN PRN Reason: NEEDED PER PROVIDER ORDERS Last Admin: 04/26/22 13:46 Dose: 10 ml Sodium Chloride (Sodium Chloride Flush 0.9% 10 Ml Syringe) 10 ml IVP 0100,0900,1700 [facility] Last Admin: 04/27/22 10:10 Dose: 10 ml Tamsulosin HCl (Tamsulosin 0.4 Mg Capsule) 0.4 mg PO DAILY [facility] Last Admin: 04/27/22 09:03 Dose: 0.4 mg Throat Lozenges (Benzocaine/Menthol Lozenge) 1 lozenge MM Q2HR PRN PRN Reason: Throat pain Last Admin: 04/19/22 05:37 Dose: 1 lozenge Witch Kasey/Glycerin (Witch Kasey/Glycerin 1 Pad) 1 pad TOP PRN PRN PRN Reason: ITCHING Last Admin: 04/21/22 05:19 Dose: 1 pad Zinc Oxide (Cod Liver Oil/Zinc Oxide 113 Gm Tube) 113 gm TOP PRN PRN PRN Reason: Skin Care Last Admin: 04/24/22 16:53 Dose: 1 applic Rosuvastatin Calcium [Crestor] 10 mg PO DAILY 03/30/21 Tamsulosin HCl [Flomax] 0.4 mg PO DAILY 03/30/21 predniSONE [Deltasone] 8 mg PO DAILY 03/31/21 Calcium Carbonate/Vitamin D3 [Calcium 600-Vit D3 200 Tablet] 1 each PO DAILY 06/15/21 Metoprolol Succinate 100 mg PO DAILY 06/24/21 Apixaban [Eliquis] 2.5 mg PO BID 11/09/21 Amiodarone [Pacerone] 200 mg PO DAILY 04/02/22 Ofloxacin 0.3% Ophth Drops [Ocuflox 0.3% Ophth Drops] 1 drops LEFTEYE DAILY 04/02/22 prednisoLONE 1% OPHTH DROPS [Pred Forte 1% Ophth Drops] 1 drops LEFTEYE DAILY 04/02/22 Examianation: Temperature 36.9. Heart rate 96. Blood pressure 112/57. Respirations 18. 98% on room air. Fatigued appearing elderly gentleman. Eyelids of left eye are partially scarred shut. That is a chronic condition. He is always cold. Always wearing a hat. Neck is supple Lungs are clear, no respiratory effort. He is lying comfortably, flat on his back. Regular rate and rhythm with a slight soft systolic murmur Abdomen quiet bowel sounds, nontender, nondistended and spite of diverticulitis history Extremities with resolving edema and skin is shrinking around his legs and feet Alert, oriented, depressed, no focal deficits Sodium 134. Potassium 3.8. Glucose 83. White cell count 3.1, hemoglobin 7.2. Platelets 22,000. Assessment/plan 1. Pancytopenia: anemia/thrombocytopenia/leukopenia He has received 8 units of red packed cells, 1 unit of FFP, 6 units of irradiated leukocyte reduced platelets. Combination of bone marrow failure, and worsening anemia from hemorrhagic cystitis, and hematochezia. Plan: Transfusion of packed red cells when hemoglobin less than 7 Transfusion of platelets when platelets less than 30. Yesterday he was 22 and today 22 and I have opted to wait on transfusion. Transfusion of platelets when platelets less than 50 and bleeding Await bed availability at [facility] 2. Diverticular hemorrhage Assessment/Plan: Presented as hematochezia on admission. Had C. difficile colitis. Was treated with po Vanco. Then he had even more hematochezia and CT confirmed focal segmental diverticulitis. Then we started him on budesonide as requested by Dr. Maradiaga on the bone marrow team, which was later stopped and started him on single agent Zosyn. He has needed blood transfusions q1-3 days, while having bloody BMs He was accepted in transfer by and we have called daily for close to 2 weeks and no beds available. I updated the transfer center on his problems, lab results and his colonic bleeding and blood and plt transfusion needs on 04/24. There are no beds for him to be transferred into today 04/26. 3. Sigmoid diverticulitis Presented as hematochezia on admission. Had C. difficile colitis. Was treated with po Vanco. Then he had even more hematochezia and CT confirmed focal segmental diverticulitis. First he was on budesonide as requested by Dr. Maradiaga on the bone marrow team, which was later stopped and started him on Zosyn 04/22. He has needed blood transfusions due to bloody BMs. Plan on stopping after 04/29 and since exam is without peritoneal findings, I will not repeat CT of abdomen. 4. Nose bleed This started 04/25. He says he has had it at home. He applied pressure and has been holding tissues in his nostrils as well as ice packs placed by the nurse. By today only trace blood at times when he blows his nose. Plan: Continue with topical management We will consider a nasal pack by the ER doctor if needed 5. Anasarca This started slowly since he was put on TPN to get calories, then he gained 20 pounds since that time. Lasix 20 mg IV daily has been given for 3 days with significant decrease in leg edema and even skin wrinkling seen on thighs Plan: IV lasix has been stopped and has been on po lasix since 04/25 6. Acute hemorrhagic cystitis as reason for admission He continues with a re-inserted Juarez. The hematuria is up and down. Urology input would be helpful, at a larger hospital 7. 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 Treated and cured. History of myelodysplastic syndrome and he had a bone marrow transplant in 2020. As of April 11, Oncology concluded that he would benefit from higher level of care transfer. We called several facilities. [facility] excepted him. Dr Amador Brooks has been the physician accepting him. We are waiting for bed assignment at . 8. Sacral decubitus ulcer It is located more on the right buttock. Stage II. Getting Desitin, offloading, And we are making an effort to improve his nutrition 9. Severe protein calorie malnutrition. TPN infused for about 2 weeks. TPN was stopped the evening of April 25. It has been interesting that this patient has been borderline hypoglycemic his entire admission. Even when TPN was infusing. 10. Chronic diastolic heart failure. He developed anasarca from TPN. Lasix started Plan: Since TPN is stopping, Lasix is going to 20 mg just on Monday and we will plan on canceling the Lasix after a week. The would be the last day. 11. Orthostatic hypotension. He is now on his regular prednisone of [address] Maradiaga's recommendation. Blood pressure is relatively stable since April 08. 12. Paroxysmal A-fib HR is stable. 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 Not on anticoagulation. He may need a Goran filter but we do not do that here 14. Chronic kidney disease stable. Labs all reviewed. Renal labs have been stable. 15. COVID-positive Asymptomatic. 16. Anal lesion. Benign pathology on biopsy on this admission 17. C. difficile colitis. Completed 11 days of oral vancomycin on April 15.
[2022-04-27] MEDS: ATORVASTATIN 10 MG TABLET PO SCH (20:21)
[2022-04-28] MEDS: PIPERACILLIN/TAZOBACTAM 3.375 GM in SODIUM CHLORIDE 0.9% MINIBAG 100 ML IV SCH ×5 (00:39→23:52)
[2022-04-28] MEDS: SODIUM CHLORIDE FLUSH 0.9% 10 ML SYRINGE IVP SCH ×4 (00:40→23:51)
[2022-04-28] MEDS: HYDROmorphone 2 MG TABLET PO PRN ×5 (00:40→20:49)
[2022-04-28] MEDS: CARBOXYMETHYLCELLULOSE OPHTH DROPS EACHEYE PRN ×3 (00:50→20:49)
[2022-04-28 05:25] LABS: BASOPHILS % (AUTO) 0.4 %; EOSINOPHILS % (AUTO) 3.7 %; HCT - HEMATOCRIT 22.2 % (42.0-52.0); HGB - HEMOGLOBIN 7.1 g/dL (14.0-18.0); MEAN CORPUSCULAR HEMOGLOBIN 31.1 pg (27.0-31.0); MEAN CORPUSCULAR VOLUME 97.4 fL (80.0-94.0); MEAN PLATELET VOLUME 10.5 fL (7.4-11.4); NEUTROPHILS % (AUTO) 69.1 %; RED BLOOD COUNT 2.28 10^6/uL (4.70-6.10); RED CELL DISTRIBUTION WIDTH 18.4 % (12.0-15.0); WHITE BLOOD COUNT 2.5 x10^3/uL (4.8-10.8)
[2022-04-28 05:32] LABS: CALCIUM 8.1 mg/dL (8.5-10.3); CREATININE 1.1 mg/dL (0.6-1.2); POTASSIUM 3.5 mmol/L (3.5-5.0)
[2022-04-28 05:38] LABS: PLT - PLATELET COUNT 23 10^3/uL (130-450)
[2022-04-28 05:39] LABS: ABNORMAL LYMPHS % (MANUAL) 0 %
[2022-04-28 05:41] LABS: BAND NEUTROPHILS % (MANUAL) 1 %; EOSINOPHILS # (MANUAL) 0.1 10^3/uL (0-0.7); LYMPHOCYTES # (MANUAL) 0.4 10^3/uL (1.5-3.5); LYMPHOCYTES % (MANUAL) 15 %; MONOCYTES # (MANUAL) 0.3 10^3/uL (0.0-1.0); NEUTROPHILS # (MANUAL) 1.8 10^3/uL (1.5-6.6)
[2022-04-28 05:42] LABS: DIFFERENTIAL COMMENT MANUAL DIFFERENTIAL; PLATELET ESTIMATE, MANUAL DECREASED (<130,000) (NORMAL); PLATELET MORPHOLOGY NORMAL APPEARANCE (NORMAL); WBC MORPHOLOGY (MULTIPLE) NORMAL APPEARANCE (NORMAL)
[2022-04-28] MEDS: PANTOPRAZOLE 40 MG TABLET PO SCH (06:49)
[2022-04-28] MEDS: AMIODARONE 200 MG TABLET PO SCH (08:28)
[2022-04-28] MEDS: CHOLECALCIFEROL 25 MCG TABLET PO SCH (08:28)
[2022-04-28] MEDS: predniSONE 20 MG TABLET PO SCH (08:29)
[2022-04-28] MEDS: TAMSULOSIN 0.4 MG CAPSULE PO SCH (08:29)
[2022-04-28] MEDS: CALCIUM CARB (OYSTER SHELL) 500 MG TABLET PO SCH (08:30)
[2022-04-28] MEDS: INSULIN LISPRO 300 UNIT/3 ML PEN SUBQ SCH ×4 (08:30→20:49)
[2022-04-28] MEDS: LIDOCAINE OINTMENT 5% 35.44 GM TUBE TOP SCH ×4 (08:31→20:50)
[2022-04-28] MEDS: ZINC OXIDE 20% OINT 30 GM TUBE TOP PRN ×2 (08:31→17:26)
[2022-04-28] MEDS: FLUTICASONE NASAL SPRAY NAS SCH (08:32)
[2022-04-28] MEDS: prednisoLONE 1% OPHTH DROPS 75 DROPS/5 ML BOTTLE LEFTEYE SCH (08:34)
[2022-04-28] MEDS: OFLOXACIN 0.3% OPHTH DROPS LEFTEYE SCH (08:35)
--- NOTE | 2022-04-28 19:05 | PROVIDER PROGRESS NOTE ---
Progress Note April 28, 2022 6:59 PM Physical therapy reports that he will work with him intermittently. He has good days and bad days. With the last visit with physical therapy he walked in the room for 25 feet. His mood was better. Nursing reports that he still has 2-4 liquid stools a day that are tinged with blood. He has less rectal pain. I gonzalez ve been holding off on giving him platelets even though he has been 29,000, 22,000, and today 23,000. Hemoglobin is staying just above 7.0. No fevers. Blood pressure remains soft between 94-105 systolic. Eating anywhere from bites of his food to sometimes 50% of his food since we have stopped TPN. His weight maxed out at 86 kg with anasarca. Once TPN and Lasix instituted he is 66.5 kg today. He is continuously with a borderline hypoglycemia this entire admission. Then when we try and encourage him to eat certain foods, he is worried about "my glucose getting too high". Active Medications Acetaminophen (Acetaminophen 325 Mg Tablet) 650 mg PO Q4HR PRN PRN Reason: Pain 1 to 4, or Fever Last Admin: 04/26/22 18:38 Dose: 650 mg Amiodarone HCl (Amiodarone 200 Mg Tablet) 100 mg PO DAILY [facility] Last Admin: 04/28/22 08:28 Dose: 100 mg Atorvastatin Calcium (Atorvastatin 10 Mg Tablet) 10 mg PO 2100 [facility] Last Admin: 04/27/22 20:21 Dose: 10 mg Calcium Carbonate/Glycine (Calcium Carb (Oyster Shell) 500 Mg Tablet) 500 mg PO 0900 [facility] Last Admin: 04/28/22 08:30 Dose: 500 mg Calcium Carbonate/Glycine (Calcium Carbonate Chew 500 Mg Tablet) 500 mg PO TID PRN PRN Reason: INDIGESTION Last Admin: 04/15/22 21:08 Dose: 500 mg Carboxymethylcellulose (Carboxymethylcellulose Ophth Drops) 1 drops EACHEYE Q2HR PRN PRN Reason: Dry Eye Last Admin: 04/28/22 11:12 Dose: 1 drops Cholecalciferol (Cholecalciferol 25 Mcg Tablet) 50 mcg PO DAILY [facility] Last Admin: 04/28/22 08:28 Dose: 50 mcg Fluticasone Propionate (Fluticasone Nasal [place]) 1 sprays SHENA DAILY [facility] Last Admin: 04/28/22 08:32 Dose: 1 spr Furosemide (Furosemide 20 Mg Tablet) 20 mg PO MOWEFR [facility] Last Admin: 04/27/22 12:58 Dose: 20 mg Heparin Sodium (Beef Lung) (Heparin Flush 50 Units/5 Ml Syringe) 30 - 50 unit IVP PRN PRN PRN Reason: Port Protocol (<24 hours) Last Admin: 04/04/22 08:25 Dose: 50 unit Hydromorphone HCl (Hydromorphone 2 Mg Tablet) 4 mg PO Q4HR PRN PRN Reason: Severe Pain Last Admin: 04/28/22 16:40 Dose: 4 mg Piperacillin Sod/Tazobactam (Sod 3.375 gm/ Sodium Chloride) 100 mls @ 200 mls/hr IV Q6H [facility] Last Admin: 04/28/22 17:26 Dose: 200 mls/hr Insulin Human Lispro (Insulin Lispro 300 Unit/3 Ml Pen) 1 - 9 unit SUBQ 0800,1200,1700,2100 [facility]; Protocol Last Admin: 04/28/22 17:27 Dose: 3 unit Lidocaine (Lidocaine Ointment 5% 35.44 Gm Tube) 1 applic TOP QID [facility] Last Admin: 04/28/22 17:27 Dose: 1 applic Multi-Ingred Cream/Lotion/Oil/Oint (Mineral Oil/Petrolat Ophth Oint) 1 applic EACHEYE QPM PRN PRN Reason: Dry Eye Multi-Ingredient Ointment (Zinc Oxide 20% Oint 30 Gm Tube) 1 applic TOP PRN PRN PRN Reason: Skin Care Last Admin: 04/28/22 17:26 Dose: 1 applic Ofloxacin (Ofloxacin 0.3% Ophth Drops) 1 drops LEFTEYE DAILY [facility] Last Admin: 04/28/22 08:35 Dose: 1 drops Ondansetron HCl (Ondansetron Odt 4 Mg Tablet) 4 mg TL Q6HR PRN PRN Reason: Nausea / Vomiting Ondansetron HCl (Ondansetron 4 Mg/2 Ml Vial) 4 mg IVP Q6HR PRN PRN Reason: Nausea / Vomiting Last Admin: 04/05/22 02:20 Dose: 4 mg Oxycodone HCl (Oxycodone 5 Mg Tablet) 5 mg PO Q6HR PRN PRN Reason: Pain 5 to 7 Last Admin: 04/27/22 09:09 Dose: 5 mg Pantoprazole Sodium (Pantoprazole 40 Mg Tablet) 40 mg PO QDAC [facility] Last Admin: 04/28/22 06:49 Dose: 40 mg Prednisolone (Prednisolone 1% Ophth Drops 75 Drops/5 Ml Bottle) 1 drops LEFTEYE DAILY [facility] Last Admin: 04/28/22 08:34 Dose: 1 drops Prednisone (Prednisone 20 Mg Tablet) 10 mg PO DAILYWM [facility] Last Admin: 04/28/22 08:29 Dose: 10 mg Sodium Chloride (Sodium Chloride Flush 0.9% 10 Ml Syringe) 10 ml IVP PRN PRN PRN Reason: NEEDED PER PROVIDER ORDERS Last Admin: 04/26/22 13:46 Dose: 10 ml Sodium Chloride (Sodium Chloride Flush 0.9% 10 Ml Syringe) 10 ml IVP 0100,0900,1700 [facility] Last Admin: 04/28/22 17:27 Dose: 10 ml Tamsulosin HCl (Tamsulosin 0.4 Mg Capsule) 0.4 mg PO DAILY [facility] Last Admin: 04/28/22 08:29 Dose: 0.4 mg Throat Lozenges (Benzocaine/Menthol Lozenge) 1 lozenge MM Q2HR PRN PRN Reason: Throat pain Last Admin: 04/19/22 05:37 Dose: 1 lozenge Witch Kasey/Glycerin (Witch Kasey/Glycerin 1 Pad) 1 pad TOP PRN PRN PRN Reason: ITCHING Last Admin: 04/21/22 05:19 Dose: 1 pad Zinc Oxide (Cod Liver Oil/Zinc Oxide 113 Gm Tube) 113 gm TOP PRN PRN PRN Reason: Skin Care Last Admin: 04/24/22 16:53 Dose: 1 applic Rosuvastatin Calcium [Crestor] 10 mg PO DAILY 03/30/21 Tamsulosin HCl [Flomax] 0.4 mg PO DAILY 03/30/21 predniSONE [Deltasone] 8 mg PO DAILY 03/31/21 Calcium Carbonate/Vitamin D3 [Calcium 600-Vit D3 200 Tablet] 1 each PO DAILY 06/15/21 Metoprolol Succinate 100 mg PO DAILY 06/24/21 Apixaban [Eliquis] 2.5 mg PO BID 11/09/21 Amiodarone [Pacerone] 200 mg PO DAILY 04/02/22 Ofloxacin 0.3% Ophth Drops [Ocuflox 0.3% Ophth Drops] 1 drops LEFTEYE DAILY 04/02/22 prednisoLONE 1% OPHTH DROPS [Pred Forte 1% Ophth Drops] 1 drops LEFTEYE DAILY 04/02/22 Exam: Temperature 36.5. Heart rate 80. Blood pressure 105/55. Respirations 16. 99% on room air. A frail, cachectic 5 foot 7 inch man, 66.5 kg Left eyelids scarred shut almost to the medial corner of his eye. Right eyelids normal. Wearing woolen Neck with shotty adenopathy. Lungs clear. Coarse upper airway sounds, but no tachypnea or increased respiratory effort. Regular rate and rhythm. Abdomen soft, nontender. Juarez catheter in place, having hematuria that is blood-tinged. No clots. He hates the Juarez and is looking forward to getting it out. We have had the Juarez in twice now. We put it in, removed it, then put it back in, removed it, this is his third go around. Neurologically alert, oriented. No focal deficits. Very sad, depressed, and repeatedly tells me that he is afraid he is just going to here. I have not seen his sacrum this week. I will have nursing take down his dressings tomorrow and take photos for me. Labs: Sodium 136, potassium 3.5. BUN 18, creatinine 1.1. Glucose 102. White cell count 2.5. Hemoglobin 7.1. Hematocrit 22.2. Platelets 23,000. Assessment/plan 1. Pancytopenia: anemia/thrombocytopenia/leukopenia He has received 8 units of red packed cells, 1 unit of FFP, 6 units of irradia art leukocyte reduced platelets. Combination of bone marrow failure, and worsening anemia from hemorrhagic cystitis, and hematochezia. Plan: Transfusion of packed red cells when hemoglobin less than 7 Transfusion of platelets when platelets less than 30. Today, for 3 days in a row, he has been either 22 or 23,000 and he is having hematuria and occasional rectal bleeding. Hemoglobin stable. I will transfuse a platelet pheresis pack today. Transfusion of platelets when platelets less than 50 and bleeding Await bed availability at [facility] 2. Diverticular hemorrhage Assessment/Plan: Presented as hematochezia on admission. Had C. difficile colitis. Was treated with po Vanco. Then he had even more hematochezia and CT confirmed focal segmental diverticulitis. we had just started him on budesonide as requested by Dr. Maradiaga on the bone marrow team, when the diverticulitis was diagnosed, so we stopped steroids and started him on single agent Zosyn. He has needed blood transfusions q1-3 days, while having bloody BMs He was accepted in transfer by and we have called daily for close to 2 weeks and no beds available. I updated the transfer center on his problems, lab results and his colonic bleeding and blood and plt transfusion needs on 04/24. There are no beds for him to be transferred into today 04/26. 3. Sigmoid diverticulitis Presented as hematochezia on admission. Had C. difficile colitis. Was treated with po Vanco. Then he had even more hematochezia and CT confirmed focal segme ntal diverticulitis. First he was on budesonide as requested by Dr. Maradiaga on the bone marrow team, which was later stopped and started him on Zosyn 04/22. He has needed blood transfusions due to bloody BMs. Plan on stopping after 04/29 and since exam is without peritoneal findings, I will not repeat CT of abdomen. 4. Nose bleed This started 04/25. He says he has had it at home. He applied pressure and has been holding tissues in his nostrils as well as ice packs placed by the nurse. By today only trace blood at times when he blows his nose. Plan: Continue with topical management We will consider a nasal pack by the ER doctor if needed 5. Anasarca This started slowly since he was put on TPN to get calories, then he gained 20 pounds since that time. Lasix 20 mg IV daily has been given for 3 days with significant decrease in leg edema and even skin wrinkling seen on thighs Plan: IV lasix has been stopped and has been on po lasix since 04/25 6. Acute hemorrhagic cystitis as reason for admission He continues with a re-inserted Juarez. The hematuria is up and down. Urology input would be helpful, at a larger hospital 7. 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 Treated and cured. History of myelodysplastic syndrome and he had a bone marrow transplant in 2020. As of April 11, Oncology concluded that he would benefit from higher level of care transfer. We called several facilities. [facility] excepted him. Dr Amador Brooks has been the physician accepting him. We are waiting for bed assignment at . 8. Sacral decubitus ulcer It is located more on the right buttock. Stage II. Getting Desitin, offloading, And we are making an effort to improve his nutrition 9. Severe protein calorie malnutrition. TPN infused for about 2 weeks. TPN was stopped the evening of April 25. It has been interesting that this patient has been borderline hypoglycemic his entire admission. Even when TPN was infusing. 10. Chronic diastolic heart failure. He developed anasarca from TPN. Lasix started Plan: Since TPN is stopping, Lasix is going to 20 mg just on Monday and we will plan on canceling the Lasix after a week. The would be the last day. 11. Orthostatic hypotension. He is now on his regular prednisone of [address] Maradiaga's recommendation. Blood pressure is relatively stable since April 08. 12. Paroxysmal A-fib HR is stable. 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 Not on anticoagulation. He may need a Goran filter but we do not do that here 14. Chronic kidney disease stable. Labs all reviewed. Renal labs have been stable. 15. COVID-positive Asymptomatic. 16. Anal lesion. Benign pathology on biopsy on this admission 17. C. difficile colitis. Completed 11 days of oral vancomycin on April 15.
[2022-04-28] MEDS: ATORVASTATIN 10 MG TABLET PO SCH (20:49)
[2022-04-28] MEDS: ACETAMINOPHEN 325 MG TABLET PO PRN (23:51)
[2022-04-29] MEDS: HYDROmorphone 2 MG TABLET PO PRN ×6 (01:00→22:32)
[2022-04-29] MEDS: CARBOXYMETHYLCELLULOSE OPHTH DROPS EACHEYE PRN ×3 (01:31→21:31)
[2022-04-29] MEDS: PIPERACILLIN/TAZOBACTAM 3.375 GM in SODIUM CHLORIDE 0.9% MINIBAG 100 ML IV SCH (05:19)
[2022-04-29 05:23] LABS: EOSINOPHILS % (AUTO) 4.1 %; LYMPHOCYTES % (AUTO) 19.9 %; MEAN CORPUSCULAR HEMOGLOBIN 31.5 pg (27.0-31.0); MEAN CORPUSCULAR HGB CONC 31.8 g/dL (32.0-36.0); MEAN PLATELET VOLUME 10.1 fL (7.4-11.4); MONOCYTES % (AUTO) 11.7 %; NEUTROPHILS % (AUTO) 63.7 %; PLT - PLATELET COUNT 38 10^3/uL (130-450); RED BLOOD COUNT 1.97 10^6/uL (4.70-6.10); RED CELL DISTRIBUTION WIDTH 18.1 % (12.0-15.0)
[2022-04-29 05:36] LABS: CALCIUM 8.4 mg/dL (8.5-10.3); CREATININE 0.9 mg/dL (0.6-1.2); POTASSIUM 3.9 mmol/L (3.5-5.0)
[2022-04-29 05:49] LABS: HCT - HEMATOCRIT 19.5 % (42.0-52.0); HGB - HEMOGLOBIN 6.2 g/dL (14.0-18.0); WHITE BLOOD COUNT 1.7 x10^3/uL (4.8-10.8)
[2022-04-29 05:50] LABS: ABNORMAL LYMPHS % (MANUAL) 0 %
[2022-04-29 06:00] LABS: BAND NEUTROPHILS % (MANUAL) 1 %; DIFFERENTIAL COMMENT MANUAL DIFFERENTIAL; EOSINOPHILS # (MANUAL) 0.1 10^3/uL (0-0.7); LYMPHOCYTES # (MANUAL) 0.3 10^3/uL (1.5-3.5); LYMPHOCYTES % (MANUAL) 15 %; MONOCYTES # (MANUAL) 0.2 10^3/uL (0.0-1.0); NEUTROPHILS # (MANUAL) 1.2 10^3/uL (1.5-6.6); PLATELET ESTIMATE, MANUAL DECREASED (<130,000) (NORMAL)
[2022-04-29] MEDS: BENZOCAINE/MENTHOL LOZENGE MM PRN (06:03)
[2022-04-29] MEDS: PANTOPRAZOLE 40 MG TABLET PO SCH (06:03)
[2022-04-29] MEDS: INSULIN LISPRO 300 UNIT/3 ML PEN SUBQ SCH (08:02)
[2022-04-29] MEDS: ZINC OXIDE 20% OINT 30 GM TUBE TOP PRN ×2 (09:03→21:35)
[2022-04-29] MEDS: prednisoLONE 1% OPHTH DROPS 75 DROPS/5 ML BOTTLE LEFTEYE SCH (09:03)
[2022-04-29] MEDS: FLUTICASONE NASAL SPRAY NAS SCH (09:03)
[2022-04-29] MEDS: LIDOCAINE OINTMENT 5% 35.44 GM TUBE TOP SCH ×4 (09:03→21:35)
[2022-04-29] MEDS: OFLOXACIN 0.3% OPHTH DROPS LEFTEYE SCH (09:04)
[2022-04-29] MEDS: TAMSULOSIN 0.4 MG CAPSULE PO SCH (09:04)
[2022-04-29] MEDS: CALCIUM CARB (OYSTER SHELL) 500 MG TABLET PO SCH (09:04)
[2022-04-29] MEDS: CHOLECALCIFEROL 25 MCG TABLET PO SCH (09:04)
[2022-04-29] MEDS: AMIODARONE 200 MG TABLET PO SCH (09:05)
[2022-04-29] MEDS: predniSONE 20 MG TABLET PO SCH (09:05)
[2022-04-29] MEDS: MULTIVITAMIN W/MINERALS TABLET PO SCH (09:07)
[2022-04-29] MEDS: SODIUM CHLORIDE FLUSH 0.9% 10 ML SYRINGE IVP SCH ×2 (09:08→17:51)
--- NOTE | 2022-04-29 12:58 | PROVIDER PROGRESS NOTE ---
Progress Note April 29, 2022 12:48 PM Worsening of hematuria yesterday. In the evening his Juarez needed to start being flushed again because of clots causing obstruction. He still has occasional blood in his stool. And again rectal pain is slowly subsided over the last week and a half. He is depressed, withdrawn. Physical therapy can occasionally control him into working with them. Food intake is spotty since we stopped the TPN. Eating anywhere from a few bites of his food to 50% of his food. Bowel movement was yesterday. He hurts all over. Just is exhausted. But he does feel like he is slowly improved since his liquid stools no longer occur so frequently. He is down to 2-4 a day. Continues to have poor healing of his gluteal/sacral wound. No fevers, no chills. Very depressed. Basically he feels like he is here to . Exam: Temperature 36.4, heart rate 77, blood pressure 112/54, respirations 18, 100% on room air. Earlier today his blood pressure was 89/43. 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 Always wears a hat because he is so cold. Shotty neck adenopathy. Diminished breath sounds at the bases but his lungs are essentially clear without tachypnea or increased respiratory effort Regular rate and rhythm with a systolic ejection murmur Abdomen is soft, hypoactive bowel sounds, nontender Wound care photo done yesterday at my request. The sacral area that is in the upper right [place] is healing nicely. He still has an irregular geographic V shaped loss of superficial skin. But it is dry, granulating, no redness, no heat. The bruising and blackness of the testicles has resolved. Sodium 140, potassium 3.9, BUN 19, creatinine 0.9. Glucose 103. Later on glucose 92, and 107. White cell count 1.7. Hemoglobin 6.2. Hematocrit 19.5. Platelets 38. Assessment/plan 1. Pancytopenia: anemia/thrombocytopenia/leukopenia He has received 8 units of red packed cells, 1 unit of FFP, 7 units of irradiated leukocyte reduced platelets. Combination of bone marrow failure, and worsening anemia from hemorrhagic cystitis, and hematochezia. Plan: Transfusion of packed red cells when hemoglobin less than 7 Transfusion of platelets when platelets less than 30. Transfusion of platelets when platelets less than 50 and bleeding Await bed availability at [facility]. I spoke to the transfer center again today. They still do not have any beds per bed control today. They offered a conversation with the bone marrow transplant team. I explained that at this time, really, they have nothing to offer. They are in the same holding pattern I am with regards to bed control. She said that they may still call me today. Because of hemoglobin less than 7, he will be transfused 1 unit of packed red cells today. 2. Diverticular hemorrhage Assessment/Plan: Presented as hematochezia on admission. Had C. difficile colitis. Was treated with po Vanco. Then he had even more hematochezia and CT confirmed focal segmental diverticulitis. we had just started him on budesonide as requested by Dr. Maradiaga on the bone marrow team, when the diverticulitis was diagnosed, so we stopped steroids and started him on single agent Zosyn. He has needed blood transfusions q1-3 days, while having bloody BMs He was accepted in transfer by and we have called daily for close to 2 weeks and no beds available. There are no beds for him to be transferred into today 04/29 3. Sigmoid diverticulitis Presented as hematochezia on admission. Had C. difficile colitis. Was treated with po Vanco. Then he had even more hematochezia and CT confirmed focal segmental diverticulitis. First he was on budesonide as requested by Dr. Maradiaga on the bone marrow team, which was later stopped and started him on Zosyn 04/22. He has needed blood transfusions due to bloody BMs. I do worry because his white cell count goes down. He is immunocompromise. But his abdominal exam is benign. Normal bowel sounds. Had a bowel movement. No fever. He has been on Zosyn since April 22. I will stop Zosyn today. 4. Nose bleed This started 04/25. He says he has had it at home. He applied pressure and has been holding tissues in his nostrils as well as ice packs placed by the nurse. Trace blood when he blows his nose now. But nothing severe. Plan: Continue with topical management We will consider a nasal pack by the ER doctor if needed 5. Anasarca This started slowly since he was put on TPN to get calories, then he gained 20 pounds since that time. Lasix 20 mg IV daily has been given for 3 days with significant decrease in leg edema and even skin wrinkling seen on thighs Plan: IV lasix has been stopped and has been on po lasix since 04/25 6. Acute hemorrhagic cystitis as reason for admission He continues with a re-inserted Juarez. The hematuria is up and down. Urology input would be helpful, at a larger hospital. Last night there were clots and partial obstruction again. But that has responded to flushing.Juarez and flushing will be continued. 7. 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 Treated and cured. History of myelodysplastic syndrome and he had a bone marrow transplant in 2020. As of April 11, Oncology concluded that he would benefit from higher level of care transfer. We called several facilities. [facility] excepted him. Dr Amador Brooks has been the physician accepting him. We are waiting for bed assignment at . 8. Sacral decubitus ulcer It is located more on the right buttock. Stage II. Getting Desitin, offloading, And we are making an effort to improve his nutrition In looking at his wound, it is definitely improved from admission. 9. Severe protein calorie malnutrition. TPN infused for about 2 weeks. TPN was stopped the evening of April 25. It has been interesting that this patient has been borderline hypoglycemic his entire admission. Even when TPN was infusing. He is trying to work with nutrition services. He does not like clear protein boost. He tells me it tastes terrible. I am trying to encourage him to at least drink that on ice to improve his protein status. I will stop Accu-Cheks and correction insulin since he does not need it. I will also add ferrous gluconate to help with anemia. 10. Chronic diastolic heart failure. He developed anasarca from TPN. Lasix started Plan: Since TPN is stopping, Lasix is going to 20 mg just on Monday and we will plan on canceling the Lasix after a week. The would be the last day. 11. Orthostatic hypotension. He is now on his regular prednisone of [address] Maradiaga's recommendation. Blood pressure is relatively stable since April 08. 12. Paroxysmal A-fib HR is stable. 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 Not on anticoagulation. He may need a [place] filter but we do not do that here 14. Chronic kidney disease stable. Labs all reviewed. Renal labs have been stable. 15. COVID-positive Asymptomatic. 16. Anal lesion. Benign pathology on biopsy on this admission 17. C. difficile colitis. Completed 11 days of oral vancomycin on April 15.
[2022-04-29] MEDS: FUROSEMIDE 20 MG TABLET PO SCH (13:40)
[2022-04-29] MEDS: ACETAMINOPHEN 325 MG TABLET PO PRN (17:54)
[2022-04-29] MEDS: ATORVASTATIN 10 MG TABLET PO SCH (21:31)
[2022-04-30] MEDS: HYDROmorphone 2 MG TABLET PO PRN ×5 (03:08→20:31)
[2022-04-30] MEDS: SODIUM CHLORIDE FLUSH 0.9% 10 ML SYRINGE IVP SCH ×3 (04:07→16:26)
[2022-04-30] MEDS: ACETAMINOPHEN 325 MG TABLET PO PRN ×4 (04:22→23:13)
[2022-04-30] MEDS: CARBOXYMETHYLCELLULOSE OPHTH DROPS EACHEYE PRN ×2 (04:24→20:35)
[2022-04-30] MEDS: PANTOPRAZOLE 40 MG TABLET PO SCH (06:28)
[2022-04-30] MEDS: ZINC OXIDE 20% OINT 30 GM TUBE TOP PRN ×2 (06:29→16:15)
[2022-04-30] MEDS: predniSONE 20 MG TABLET PO SCH (08:24)
[2022-04-30] MEDS: MULTIVITAMIN W/MINERALS TABLET PO SCH (08:25)
[2022-04-30] MEDS: FERROUS GLUCONATE 324 MG TABLET PO SCH (08:25)
[2022-04-30 08:39] LABS: BASOPHILS % (AUTO) 0.5 %; EOSINOPHILS % (AUTO) 3.9 %; HCT - HEMATOCRIT 23.8 % (42.0-52.0); HGB - HEMOGLOBIN 7.6 g/dL (14.0-18.0); LYMPHOCYTES % (AUTO) 20.2 %; MEAN CORPUSCULAR HEMOGLOBIN 30.8 pg (27.0-31.0); MEAN CORPUSCULAR HGB CONC 31.9 g/dL (32.0-36.0); MEAN CORPUSCULAR VOLUME 96.4 fL (80.0-94.0); MEAN PLATELET VOLUME 9.9 fL (7.4-11.4); MONOCYTES % (AUTO) 12.3 %; NEUTROPHILS % (AUTO) 62.6 %; PLT - PLATELET COUNT 39 10^3/uL (130-450); RED BLOOD COUNT 2.47 10^6/uL (4.70-6.10); RED CELL DISTRIBUTION WIDTH 18.6 % (12.0-15.0)
[2022-04-30 08:43] LABS: SLIDE REVIEW? Indicated
[2022-04-30 08:47] LABS: ABNORMAL LYMPHS % (MANUAL) 0 %
[2022-04-30 09:03] LABS: BAND NEUTROPHILS % (MANUAL) 1 %; BASOPHILS % (MANUAL) 1 %; DIFFERENTIAL COMMENT MANUAL DIFFERENTIAL; EOSINOPHILS # (MANUAL) 0.1 10^3/uL (0-0.7); LYMPHOCYTES # (MANUAL) 0.5 10^3/uL (1.5-3.5); LYMPHOCYTES % (MANUAL) 26 %; MONOCYTES # (MANUAL) 0.2 10^3/uL (0.0-1.0); NEUTROPHILS # (MANUAL) 1.2 10^3/uL (1.5-6.6); NUCLEATED RBC (MANUAL) 1 %
[2022-04-30 09:05] LABS: PLATELET ESTIMATE, MANUAL DECREASED (<130,000) (NORMAL); PLATELET MORPHOLOGY NORMAL APPEARANCE (NORMAL); WBC MORPHOLOGY (MULTIPLE) NORMAL APPEARANCE (NORMAL)
[2022-04-30] MEDS: TAMSULOSIN 0.4 MG CAPSULE PO SCH (10:36)
[2022-04-30] MEDS: CALCIUM CARB (OYSTER SHELL) 500 MG TABLET PO SCH (10:36)
[2022-04-30] MEDS: CHOLECALCIFEROL 25 MCG TABLET PO SCH (10:40)
[2022-04-30] MEDS: AMIODARONE 200 MG TABLET PO SCH (10:40)
[2022-04-30] MEDS: OFLOXACIN 0.3% OPHTH DROPS LEFTEYE SCH (10:45)
[2022-04-30] MEDS: prednisoLONE 1% OPHTH DROPS 75 DROPS/5 ML BOTTLE LEFTEYE SCH (10:47)
[2022-04-30] MEDS: FLUTICASONE NASAL SPRAY NAS SCH (10:49)
[2022-04-30] MEDS: LIDOCAINE OINTMENT 5% 35.44 GM TUBE TOP SCH ×5 (10:53→20:31)
--- NOTE | 2022-04-30 17:41 | PROVIDER PROGRESS NOTE ---
Progress Note April 30, 2022 5:37 PM Continues to have worsening hematuria for the last 2 days. Intermittently obstructed by clots. Stool continues to be 2-4 bowel movements a day, tinged with blood. Less rectal pain. I spoke to the transplant team today. Dr. Ortiz. She is not sure when bed control will ever release a bed for this unfortunate gentleman. I asked if it was possible to be able to coordinate a discharge for him. I feel that most of his acute medical problems with regards to colitis have stabilized and were just left with someone who is bleeding in his colon, and bleeding from his bladder and needing intermittent transfusion. I do not have the specialty services that would be able to evaluate his bone marrow. I do not have specialty services to evaluate his bladder. And diverticulosis/diverticulitis would not be evaluated with a colonoscopy for a good month or more. She says at that is a reasonable thought. He was already in outpatient getting intermittent transfusions and she feels he can return to that status and then continue to get evaluation follows medical problems in the outpatient setting. Continues to be depressed, withdrawn. He prefers to lay flat on his back, will pull the sheets over his face, keep the room dark and draw the shades to the window. Temperature is 36.5. Heart rate 75. Blood pressure 105/57. Respirations 16. 96% on room air. 67.5 kg today Thin cachectic gentleman who looks older than stated age. No change in his eye exam. Neck has shotty adenopathy but supple, no bruits Lungs are clear. No increased respiratory effort. Regular rate and rhythm with a soft systolic ejection murmur Abdomen is soft, nontender, hypoactive bowel sounds. Nontender. EXTR edema from his extremities has been gradually improving this week White cell count is 2.0, hemoglobin 7.6, hematocrit 23.8 Platelets 39 Assessment/plan 1. Pancytopenia: anemia/thrombocytopenia/leukopenia He has received 9 units of red packed cells, 1 unit of FFP, 7 units of irradiated leukocyte reduced platelets. Combination of bone marrow failure, and worsening anemia from hemorrhagic cys titis, and hematochezia. He was accepted in transfer by and we have called daily for close to 2 weeks and no beds available. Plan: Transfusion of packed red cells when hemoglobin less than 7 Transfusion of platelets when platelets less than 30. Transfusion of platelets when platelets less than 50 and bleeding Plan: After speaking to bone marrow transplant team attending, she thinks it is manageable possibility to send him home. I will need to coordinate care with his oncologist. She would be checking his CBCs on a regular basis and getting him transfused in the medical ambulatory clinic. And then from there he needs to see the bone marrow transplant team at to be evaluated for his bone marrow failure. 2. Diverticular hemorrhage Assessment/Plan: Presented as hematochezia on admission. Had C. difficile colitis. Was treated with po Vanco. Then he had even more hematochezia and CT confirmed focal segmental diverticulitis. we had just started him on budesonide as requested by Dr. Maradiaga on the bone marrow team, when the diverticulitis was diagnosed, so we stopped steroids and started him on single agent Zosyn. He has needed blood transfusions q1-3 days, while having bloody BMs. Zosyn was started April 16. And stop April 29. 3. Sigmoid diverticulitis Presented as hematochezia on admission. Had C. difficile colitis. Was treated with po Vanco. Then he had even more hematochezia and CT confirmed focal segmental diverticulitis. First he was on budesonide as requested by Dr. Maradiaga on the bone marrow team, which was later stopped and started him on Zosyn 04/16. He has needed blood transfusions due to bloody BMs. I do worry because his white cell count goes down. He is immunocompromised. But his abdominal exam is benign. Normal bowel sounds. Having bowel movements. No fever. I thought Zosyn had been started April 22. But it was started April 16. It was continued until April 29 and stopped. 4. Nose bleed This started 04/25. He says he has had it at home. He applied pressure and has been holding tissues in his nostrils as well as ice packs placed by the nurse. Trace blood when he blows his nose now. But nothing severe. Plan: Continue with topical management We will consider a nasal pack by the ER doctor if needed 5. Anasarca This started slowly since he was put on TPN to get calories, then he gained 20 pounds since that time. Lasix 20 mg IV daily had been given for 3 days with significant decrease in leg edema and even skin wrinkling seen on thighs Plan: IV lasix has been stopped and has been on po lasix since 04/25 6. Acute hemorrhagic cystitis as reason for admission He continues with a re-inserted Juarez. The hematuria is up and down. Urology input would be helpful, at a larger hospital. Vandana continues to have clots, remittent slowing of urine because of partial [place] obstruction. That responds to flushing. Juarez and flushing will continue. It is hoped that he would get referral to urology in the outpatient setting. When all of this began, the emergency room doctor spoke to urologist that was familiar with this patient at the [facility]. Unfortunately that urologist has not been able to return our phone calls and I hope the patient can get an appointment with that physician to coordinate care. 7. 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 Treated and cured. History of myelodysplastic syndrome and he had a bone marrow transplant in 2020. As of April 11, Oncology concluded that he would benefit from higher level of care transfer. We called several facilities. [facility] excepted him. Dr Amador Brooks has been the physician accepting him. We are waiting for bed assignment at . 8. Sacral decubitus ulcer It is located more on the right buttock. Stage II. Getting Desitin, offloading, And we are making an effort to improve his nutrition In looking at his wound 04/29, it is definitely improved from admission. The wound is now dry. Granulating well. This is over his right upper buttock and sacrum. His testicles had been edematous, and red. That is resolved. 9. Severe protein calorie malnutrition. TPN infused for about 2 weeks. TPN was stopped the evening of April 25. It has been interesting that this patient has been borderline hypoglycemic his entire admission. Even when TPN was infusing. He is trying to work with nutrition services. He does not like clear protein boost. He tells me it tastes terrible. I am trying to encourage him to at least drink that on ice to improve his protein status. I stopped Accu-Cheks on April 29. I added ferrous gluconate April 29. 10. Chronic diastolic heart failure. He developed anasarca from TPN. Lasix started Plan: Since TPN is stopping, Lasix is going to 20 mg just on Monday and we will plan on canceling the Lasix after a week. The would be the last day. 11. Orthostatic hypotension. He is now on his regular prednisone of [address] day [address] Dr[address] Maradiaga's recommendation. Blood pressure is relatively stable since April 08. 12. Paroxysmal A-fib HR is stable. 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 Not on anticoagulation. He may need a [place] filter but we do not do that here 14. Chronic kidney disease stable. Labs all reviewed. Renal labs have been stable. 15. COVID-positive Asymptomatic. 16. Anal lesion. Benign pathology on biopsy on this admission 17. C. difficile colitis. Completed 11 days of oral vancomycin on April 15.
[2022-04-30] MEDS: ATORVASTATIN 10 MG TABLET PO SCH (20:31)
[2022-05-01] MEDS: SODIUM CHLORIDE FLUSH 0.9% 10 ML SYRINGE IVP SCH ×4 (01:00→23:52)
[2022-05-01] MEDS: HYDROmorphone 2 MG TABLET PO PRN ×6 (01:01→21:58)
[2022-05-01] MEDS: ZINC OXIDE 20% OINT 30 GM TUBE TOP PRN ×5 (01:33→23:52)
[2022-05-01] MEDS: CARBOXYMETHYLCELLULOSE OPHTH DROPS EACHEYE PRN ×3 (01:33→22:01)
[2022-05-01 05:58] LABS: BASOPHILS % (AUTO) 0.9 %; EOSINOPHILS % (AUTO) 2.2 %; HCT - HEMATOCRIT 23.9 % (42.0-52.0); HGB - HEMOGLOBIN 7.7 g/dL (14.0-18.0); LYMPHOCYTES % (AUTO) 22.6 %; MEAN CORPUSCULAR HEMOGLOBIN 31.3 pg (27.0-31.0); MEAN CORPUSCULAR HGB CONC 32.2 g/dL (32.0-36.0); MEAN CORPUSCULAR VOLUME 97.2 fL (80.0-94.0); MEAN PLATELET VOLUME 10.1 fL (7.4-11.4); MONOCYTES % (AUTO) 14.8 %; NEUTROPHILS % (AUTO) 58.6 %; PLT - PLATELET COUNT 39 10^3/uL (130-450); RED BLOOD COUNT 2.46 10^6/uL (4.70-6.10); RED CELL DISTRIBUTION WIDTH 18.4 % (12.0-15.0); WHITE BLOOD COUNT 2.3 x10^3/uL (4.8-10.8)
[2022-05-01 06:04] LABS: ABNORMAL LYMPHS % (MANUAL) 0 %
[2022-05-01 06:05] LABS: CALCIUM 8.5 mg/dL (8.5-10.3); CREATININE 0.8 mg/dL (0.6-1.2); POTASSIUM 4.1 mmol/L (3.5-5.0)
[2022-05-01] MEDS: PANTOPRAZOLE 40 MG TABLET PO SCH (06:36)
[2022-05-01 06:37] LABS: BAND NEUTROPHILS % (MANUAL) 1 %; EOSINOPHILS # (MANUAL) 0.1 10^3/uL (0-0.7); LYMPHOCYTES # (MANUAL) 0.6 10^3/uL (1.5-3.5); LYMPHOCYTES % (MANUAL) 24 %; MONOCYTES # (MANUAL) 0.3 10^3/uL (0.0-1.0); NEUTROPHILS # (MANUAL) 1.4 10^3/uL (1.5-6.6)
[2022-05-01 06:39] LABS: DIFFERENTIAL COMMENT MANUAL DIFFERENTIAL; PLATELET ESTIMATE, MANUAL DECREASED (<130,000) (NORMAL)
[2022-05-01] MEDS: CALCIUM CARB (OYSTER SHELL) 500 MG TABLET PO SCH (08:39)
[2022-05-01] MEDS: TAMSULOSIN 0.4 MG CAPSULE PO SCH (08:39)
[2022-05-01] MEDS: predniSONE 20 MG TABLET PO SCH (08:40)
[2022-05-01] MEDS: oxyCODONE 5 MG TABLET PO PRN (08:40)
[2022-05-01] MEDS: MULTIVITAMIN W/MINERALS TABLET PO SCH (08:41)
[2022-05-01] MEDS: CHOLECALCIFEROL 25 MCG TABLET PO SCH (08:41)
[2022-05-01] MEDS: ACETAMINOPHEN 325 MG TABLET PO PRN ×2 (08:41→16:43)
[2022-05-01] MEDS: AMIODARONE 200 MG TABLET PO SCH (08:41)
[2022-05-01] MEDS: FERROUS GLUCONATE 324 MG TABLET PO SCH (08:41)
[2022-05-01] MEDS: OFLOXACIN 0.3% OPHTH DROPS LEFTEYE SCH (08:46)
[2022-05-01] MEDS: prednisoLONE 1% OPHTH DROPS 75 DROPS/5 ML BOTTLE LEFTEYE SCH (08:46)
[2022-05-01] MEDS: FLUTICASONE NASAL SPRAY NAS SCH (08:46)
[2022-05-01] MEDS: LIDOCAINE OINTMENT 5% 35.44 GM TUBE TOP SCH ×4 (08:47→20:36)
[2022-05-01] MEDS: HYDROmorphone 2 MG/ML VIAL IVP PRN (11:02)
[2022-05-01] MEDS ORDERED: iohexoL-300 100 ML VIAL ONE (11:29)
[2022-05-01] MEDS ORDERED: iohexoL-300 100 ML VIAL IVP ONE (12:12)
--- NOTE | 2022-05-01 12:21 | CT Report ---
PROCEDURE: PELVIS W INDICATIONS: hemorraghic systitis CONTRAST: 30ml omni 300 in 470ml NaCL placewd into the bladder via martin TECHNIQUE: After the administration of retrograde instilled bladder contrast contrast, 5 mm thick sections acqui red from the iliac crests to the symphysis. 5 mm thick coronal and sagittal reformats were acquired. For radiation dose reduction, the following was used: automated exposure control, adjustment of mA and/or kV according to patient size. COMPARISON: To 423 FINDINGS: Image quality: Excellent. Peritoneum and bowel: The bowel loops demonstrate normal wall thickness and caliber. No free fluid o r air. Liquid stool can be seen within the distal colon. A normal appendix is incidentally noted. D iverticulosis can be seen, without spike findings of active diverticulitis. Genitourinary: Bladder wall thickness is normal. No focal bladder wall lesions can be seen. A mild amount of bladder gas can be seen, which is attributed to the retrograde instillation of contrast. Nodes and vessels: No iliac, pelvic, or inguinal adenopathy. Iliac vessels demonstrate normal size . Atherosclerotic calcification is seen. Bones: No suspicious bony lesions. Bilateral L5 pars defects are seen, with associated grade 1 ante rolisthesis at L5-S1. Focal L5-S1 degenerative change is seen. Miscellaneous: Minimal fat-containing bilateral inguinal hernias are seen. IMPRESSION: Normal-appearing bladder. Liquid stool is seen within the distal colon. Please correlate with clinical diarrhea. The previously seen distal colitis and free pelvic fluid has resolved. Anasarca is no longer seen. Additional findings: Normal appendix Diverticulosis, without findings of active diverticulitis. Bilateral L5 pars defects, with grade 1 L5-S1 anterolisthesis Focal L5-S1 degenerative change Minimal bilateral fat-containing inguinal hernias Reviewed by: Landon Thornton MD on 05/01/2022 11:20 AM [facility] Approved by: Landon Thornton MD on 05/01/2022 11:20 AM [facility] Station ID: [id number]
--- NOTE | 2022-05-01 14:56 | PROVIDER PROGRESS NOTE ---
Progress Note May 01, 2022 2:48 PM He had a very rough morning. Hematuria had started again and was more vigorous in the last 2 to 3 days. By this morning he had complete obstruction of his Juarez no matter how much the nurses were irrigating. He was getting more more distended in his bladder and he was crying out in pain. After several more vigorous flushings, and CBI being started, he is now unplugged. "That was the worst pain of ever had in my life". I have updated him on my conversations with [facility]. I told him that we have no control over the bed control situation but I am still trying. I did speak to [facility] this morning to update them and letting him know that even though I thought I was going to aim for an outpatient evaluation in the next few days, this current episode of hematuria with clots and urinary obstruction is going to delay this. I also explained to the transfer center that we are right back to day 1 of admission on April 02 when he presented with urinary obstruction and clots requiring CBI. The transfer nurse stated that she would have one of the bone marrow transplant team call me. As of this dictation no phone call. For the first few days of admission it became difficult to communicate to both oncology and urology that this patient needed their services. Urology felt that it was a oncology problem, and oncology felt it was a urology problem. We made numerous attempts to speak to his urologist at and left messages but we have not received any phone calls. Temperature is 36.3. Heart rate 82. Blood pressure 108/60. Respirations 14. 99% on room air. He is a frail, cachectic gentleman who looks much older than stated age. Lights are on. Actually interacting with me and the nurse. He tells me that it is such a relief not to be in pain right now. He is wearing his blue beanie hat. Face continues to have the left eyelid asymmetry. The eyelids have scarred shut except for the very medial corner. He says that he sees Noah Hebert MD for this @[phone]. He cannot really tell me why he still has the eyedrops that he has been using for years. Nose is also slightly deformed chronically. Neck is supple with shotty adenopathy Lungs are clear with coarse upper airway sounds but no tachypnea, increased respiratory effort, or respiratory distress Regular rate and rhythm with soft systolic ejection murmur Abdomen is achy over his bladder. He says he just feels bruised. But the rest of his abdomen is benign. Nontender. Normal bowel sounds. Extremities are without edema. The left knee is large, and deformed in comparison to the right. It has a previous vertical scar from a knee replacement. He tells me that that got infected and required weeks of antibiotic therapy and he was left with a deformed knee since that time. Labs: Sodium 132, potassium 4.1, BUN 18, creatinine 0.8, glucose 95 White cell count 2.3, hemoglobin 7.7, platelets 39 Assessment/plan 1. Pancytopenia: anemia/thrombocytopenia/leukopenia He has received 9 units of red packed cells, 1 unit of FFP, 7 units of irradiated leukocyte reduced platelets. Combination of bone marrow failure, and worsening anemia from hemorrhagic cystitis, and hematochezia. He was accepted in transfer by and we have called daily for close to 2 weeks and no beds available. Plan: Transfusion of packed red cells when hemoglobin less than 7 Transfusion of platelets when platelets less than 30. Transfusion of platelets when platelets less than 50 and bleeding Plan: I had spoken to Dr. Torres on the bone marrow transplant team yesterday and I tentatively started making plans for discharging this patient and trying to manage his anemia in the outpatient setting. He is going to need regular blood transfusions. I had hoped that he would then coordinate between [facility] oncology and bone marrow transplant team to figure out what was wrong with him. The bone marrow transplant team attending thought it was a good idea as well. But with today's episode, I do not think we can move forward with that. I have recontacted the transfer center. Transfer center said that they will have the bone marrow team attending call me today. In the meantime I will be transfusing platelets because he is below 50,000 and significantly bleeding 2. Diverticular hemorrhage Assessment/Plan: Presented as hematochezia on admission. Had C. difficile colitis. Was treated with po Vanco. Then he had even more hematochezia and CT confirmed focal segmental diverticulitis. we had just started him on budesonide as requested by Dr. Maradiaga on the bone marrow team, when the diverticulitis was diagnosed, so we stopped steroids and started him on single agent Zosyn. He has needed blood transfusions q1-3 days, while having bloody BMs. Zosyn was started April 16. And stop April 29. 3. Sigmoid diverticulitis Presented as hematochezia on admission. Had C. difficile colitis. Was treated with po Vanco. Then he had even more hematochezia and CT confirmed focal segmental diverticulitis. First he was on budesonide as requested by Dr. Maradiaga on the bone marrow team, which was later stopped and started him on Zosyn 04/16. He has needed blood transfusions due to bloody BMs. I do worry because his white cell count goes down. He is immunocompromised. But his abdominal exam is benign. Normal bowel sounds. Having bowel movements. No fever. I thought Zosyn had been started April 22. But it was started April 16. It was continued until April 29 and stopped. 4. Nose bleed This started 04/25. He says he has had it at home. He applied pressure and has been holding tissues in his nostrils as well as ice packs placed by the nurse. Trace blood when he blows his nose now. But nothing severe. Plan: Continue with topical management We will consider a nasal pack by the ER doctor if needed 5. Anasarca This started slowly since he was put on TPN to get calories, then he gained 20 pounds since that time. Lasix 20 mg IV daily had been given for 3 days with significant decrease in leg edema and even skin wrinkling seen on thighs. With today's exam, I am really not seeing any more edema at all. Weight on April 25 was 68 kg. Weight today is 65 kg. Plan: IV lasix has been stopped and has been on po lasix since 04/25 6. Acute hemorrhagic cystitis as reason for admission He continues with a re-inserted Juarez. The hematuria is up and down. Urology input would be helpful, at a larger hospital. InHe continues to have clots, remittent slowing of urine because of partial Juarez obstruction. That responds to flushing. Juarez and flushing will continue. It is hoped that he would get referral to urology in the outpatient setting. When all of this began, the emergency room doctor spoke to urologist that was familiar with this patient at the [facility]. Unfortunately that urologist has not been able to return our phone calls and I hope the patient can get an appointment with that physician to coordinate care. Worsening status over the last 48 hours. Today spike obstruction with a Juarez so I am restarting CBI.. I am hoping the transfer center will get me with urology after I speak to bone marrow transplant 7. 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 Treated and cured. History of myelodysplastic syndrome and he had a bone marrow transplant in 2020. As of April 11, Oncology concluded that he would benefit from higher level of care transfer. We called several facilities. [facility] excepted him. Dr Amador Brooks has been the physician accepting him. We have been waiting for bed assignment at from bed control. 8. Sacral decubitus ulcer It is located more on the right buttock. Stage II. Getting Desitin, offloading, And we are making an effort to improve his nutrition In looking at his wound 04/29, it is definitely improved from admission. The wound is now dry. Granulating well. This is over his right upper buttock and sacrum. His testicles had been edematous, and red. That is resolved. 9. Severe protein calorie malnutrition. TPN infused for about 2 weeks. TPN was stopped the evening of April 25. It has been interesting that this patient has been borderline hypoglycemic his entire admission. Even when TPN was infusing. He is trying to work with nutrition services. He does not like clear protein boost. He tells me it tastes terrible. I am trying to encourage him to at least drink that on ice to improve his protein status. I stopped Accu-Cheks on April 29. I added ferrous gluconate April 29. He ate breakfast lunch and dinner on the , he has not eaten anything today. 10. Chronic diastolic heart failure. He developed anasarca from TPN. Lasix started Plan: Since TPN is stopping, Lasix is going to 20 mg just on Monday and we will plan on canceling the Lasix after a week. The would be the last day. 11. Orthostatic hypotension. He is now on his regular prednisone of [address] Maradiaga's recommendation. Blood pressure is relatively stable since April 08. 12. Paroxysmal A-fib HR is stable. 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 Not on anticoagulation. He may need a Goran filter but we do not do that here 14. Chronic kidney disease stable. Labs all reviewed. Renal labs have been stable. 15. COVID-positive Asymptomatic. 16. Anal lesion. Benign pathology on biopsy on this admission 17. C. difficile colitis. Completed 11 days of oral vancomycin on April 15.
[2022-05-01] MEDS: SODIUM CHLORIDE 0.65% NASAL SPRAY NAS PRN (16:46)
[2022-05-01] MEDS: ATORVASTATIN 10 MG TABLET PO SCH (20:36)
[2022-05-02] MEDS: CARBOXYMETHYLCELLULOSE OPHTH DROPS EACHEYE PRN ×3 (02:26→18:56)
[2022-05-02] MEDS: HYDROmorphone 2 MG TABLET PO PRN ×5 (02:26→21:00)
[2022-05-02] MEDS: ZINC OXIDE 20% OINT 30 GM TUBE TOP PRN ×3 (02:30→12:06)
[2022-05-02] MEDS: PANTOPRAZOLE 40 MG TABLET PO SCH (06:05)
[2022-05-02] MEDS: SODIUM CHLORIDE FLUSH 0.9% 10 ML SYRINGE IVP PRN ×2 (06:06→10:45)
[2022-05-02 06:28] LABS: BASOPHILS % (AUTO) 0.5 %; EOSINOPHILS % (AUTO) 2.3 %; HCT - HEMATOCRIT 23.1 % (42.0-52.0); HGB - HEMOGLOBIN 7.5 g/dL (14.0-18.0); LYMPHOCYTES % (AUTO) 24.3 %; MEAN CORPUSCULAR HEMOGLOBIN 31.6 pg (27.0-31.0); MEAN CORPUSCULAR HGB CONC 32.5 g/dL (32.0-36.0); MEAN CORPUSCULAR VOLUME 97.5 fL (80.0-94.0); MEAN PLATELET VOLUME 9.8 fL (7.4-11.4); MONOCYTES % (AUTO) 15.6 %; NEUTROPHILS % (AUTO) 56.8 %; PLT - PLATELET COUNT 58 10^3/uL (130-450); RED BLOOD COUNT 2.37 10^6/uL (4.70-6.10); WHITE BLOOD COUNT 2.2 x10^3/uL (4.8-10.8)
[2022-05-02 06:31] LABS: ABNORMAL LYMPHS % (MANUAL) 0 %; BAND NEUTROPHILS % (MANUAL) 0 %
[2022-05-02 06:46] LABS: DIFFERENTIAL COMMENT MANUAL DIFFERENTIAL; LYMPHOCYTES # (MANUAL) 0.6 10^3/uL (1.5-3.5); LYMPHOCYTES % (MANUAL) 27 %; MONOCYTES # (MANUAL) 0.2 10^3/uL (0.0-1.0); MYELOCYTES % (MANUAL) 1 %; NEUTROPHILS # (MANUAL) 1.3 10^3/uL (1.5-6.6); PLATELET ESTIMATE, MANUAL DECREASED (<130,000) (NORMAL); PLATELET MORPHOLOGY NORMAL APPEARANCE (NORMAL); RBC MORPHOLOGY (MULTIPLE) 2+ ANISOCYTOSIS (NORMAL); WBC MORPHOLOGY (MULTIPLE) NORMAL APPEARANCE (NORMAL)
[2022-05-02] MEDS: FERROUS GLUCONATE 324 MG TABLET PO SCH (09:29)
[2022-05-02] MEDS: predniSONE 20 MG TABLET PO SCH (09:29)
[2022-05-02] MEDS: MULTIVITAMIN W/MINERALS TABLET PO SCH (09:29)
[2022-05-02] MEDS: AMIODARONE 200 MG TABLET PO SCH (09:30)
[2022-05-02] MEDS: CALCIUM CARB (OYSTER SHELL) 500 MG TABLET PO SCH (09:30)
[2022-05-02] MEDS: CHOLECALCIFEROL 25 MCG TABLET PO SCH (09:30)
[2022-05-02] MEDS: FLUTICASONE NASAL SPRAY NAS SCH (09:30)
[2022-05-02] MEDS: TAMSULOSIN 0.4 MG CAPSULE PO SCH (09:31)
[2022-05-02] MEDS: SODIUM CHLORIDE FLUSH 0.9% 10 ML SYRINGE IVP SCH ×3 (09:31→20:03)
[2022-05-02] MEDS: prednisoLONE 1% OPHTH DROPS 75 DROPS/5 ML BOTTLE LEFTEYE SCH (09:31)
[2022-05-02] MEDS: LIDOCAINE OINTMENT 5% 35.44 GM TUBE TOP SCH ×4 (09:31→20:04)
[2022-05-02] MEDS: OFLOXACIN 0.3% OPHTH DROPS LEFTEYE SCH (09:32)
[2022-05-02] MEDS: HYDROmorphone 2 MG/ML VIAL IVP PRN (10:46)
--- NOTE | 2022-05-02 12:03 | PROVIDER PROGRESS NOTE ---
Subjective - Prog Note Date Prog Note Date: 05/02/22 Prog Note Time: 13:30 - Subjective Pt reports feeling: No change Subjective: The clots and gross bleeding from his bladder into his Juarez have stopped with CBI. His urine is clear to be yellow but every once while you still get streams of hematuria. No abdominal pain. No bladder pain. No fevers. Denies cough, shortness of breath. Stool has occasional blood in it but it is trace. Not gross and bloody as it was before when he had his diverticulitis. Bowel movements are 2-4 a day. Some liquid, some semiformed. Current Medications - Current Medications Current Medications: Active Medications Acetaminophen (Acetaminophen 325 Mg Tablet) 650 mg PO Q4HR PRN PRN Reason: Pain 1 to 4, or Fever Last Admin: 05/02/22 12:29 Dose: 650 mg Amiodarone HCl (Amiodarone 200 Mg Tablet) 100 mg PO DAILY [facility] Last Admin: 05/02/22 09:30 Dose: 100 mg Atorvastatin Calcium (Atorvastatin 10 Mg Tablet) 10 mg PO 2100 [facility] Last Admin: 05/01/22 20:36 Dose: 10 mg Calcium Carbonate/Glycine (Calcium Carb (Oyster Shell) 500 Mg Tablet) 500 mg PO 0900 [facility] Last Admin: 05/02/22 09:30 Dose: 500 mg Calcium Carbonate/Glycine (Calcium Carbonate Chew 500 Mg Tablet) 500 mg PO TID PRN PRN Reason: INDIGESTION Last Admin: 04/15/22 21:08 Dose: 500 mg Carboxymethylcellulose (Carboxymethylcellulose Ophth Drops) 1 drops EACHEYE Q2HR PRN PRN Reason: Dry Eye Last Admin: 05/02/22 06:07 Dose: 1 drops Cholecalciferol (Cholecalciferol 25 Mcg Tablet) 50 mcg PO DAILY [facility] Last Admin: 05/02/22 09:30 Dose: 50 mcg Ferrous Gluconate (Ferrous Gluconate 324 Mg Tablet) 324 mg PO DAILYWM [facility] Last Admin: 05/02/22 09:29 Dose: 324 mg Fluticasone Propionate (Fluticasone Nasal [place]) 1 sprays SHENA DAILY [facility] Last Admin: 05/02/22 09:30 Dose: 1 spr Furosemide (Furosemide 20 Mg Tablet) 20 mg PO MOWEFR [facility] Last Admin: 05/02/22 12:48 Dose: 20 mg Heparin Sodium (Beef Lung) (Heparin Flush 50 Units/5 Ml Syringe) 30 - 50 unit IVP PRN PRN PRN Reason: Port Protocol (<24 hours) Last Admin: 04/04/22 08:25 Dose: 50 unit Hydromorphone HCl (Hydromorphone 2 Mg Tablet) 4 mg PO Q4HR PRN PRN Reason: Severe Pain Last Admin: 05/02/22 12:48 Dose: 4 mg Hydromorphone HCl (Hydromorphone 2 Mg/Ml Vial) 2 mg IVP Q2H PRN PRN Reason: PAIN Last Admin: 05/02/22 10:46 Dose: 2 mg Lidocaine (Lidocaine Ointment 5% 35.44 Gm Tube) 1 applic TOP QID [facility] Last Admin: 05/02/22 12:52 Dose: 1 applic Multi-Ingred Cream/Lotion/Oil/Oint (Mineral Oil/Petrolat Ophth Oint) 1 applic EACHEYE QPM PRN PRN Reason: Dry Eye Multi-Ingredient Ointment (Zinc Oxide 20% Oint 30 Gm Tube) 1 applic TOP PRN PRN PRN Reason: Skin Care Last Admin: 05/02/22 06:14 Dose: 1 applic Multivitamins/Minerals (Multivitamin W/Minerals Tablet) 1 tab PO DAILYWM [facility] Last Admin: 05/02/22 09:29 Dose: 1 tab Ofloxacin (Ofloxacin 0.3% Ophth Drops) 1 drops LEFTEYE DAILY [facility] Last Admin: 05/02/22 09:32 Dose: 1 drops Ondansetron HCl (Ondansetron Odt 4 Mg Tablet) 4 mg TL Q6HR PRN PRN Reason: Nausea / Vomiting Ondansetron HCl (Ondansetron 4 Mg/2 Ml Vial) 4 mg IVP Q6HR PRN PRN Reason: Nausea / Vomiting Last Admin: 04/05/22 02:20 Dose: 4 mg Oxycodone HCl (Oxycodone 5 Mg Tablet) 5 mg PO Q6HR PRN PRN Reason: Pain 5 to 7 Last Admin: 05/01/22 08:40 Dose: 5 mg Pantoprazole Sodium (Pantoprazole 40 Mg Tablet) 40 mg PO QDAC [facility] Last Admin: 05/02/22 06:05 Dose: 40 mg Prednisolone (Prednisolone 1% Ophth Drops 75 Drops/5 Ml Bottle) 1 drops LEFTEYE DAILY [facility] Last Admin: 05/02/22 09:31 Dose: 1 drops Prednisone (Prednisone 20 Mg Tablet) 10 mg PO DAILYWM [facility] Last Admin: 05/02/22 09:29 Dose: 10 mg Sodium Chloride (Sodium Chloride Flush 0.9% 10 Ml Syringe) 10 ml IVP PRN PRN PRN Reason: NEEDED PER PROVIDER ORDERS Last Admin: 05/02/22 10:45 Dose: 20 ml Sodium Chloride (Sodium Chloride Flush 0.9% 10 Ml Syringe) 10 ml IVP 0100,0900,1700 [facility] Last Admin: 05/02/22 09:31 Dose: 10 ml Sodium Chloride (Sodium Chloride 0.65% Nasal [place]) 2 sprays SHENA Q4HR PRN PRN Reason: Nasal Congestion Last Admin: 05/01/22 16:46 Dose: 1 spr Tamsulosin HCl (Tamsulosin 0.4 Mg Capsule) 0.4 mg PO DAILY [facility] Last Admin: 05/02/22 09:31 Dose: 0.4 mg Throat Lozenges (Benzocaine/Menthol Lozenge) 1 lozenge MM Q2HR PRN PRN Reason: Throat pain Last Admin: 04/29/22 06:03 Dose: 1 lozenge [place]y/Glycerin (Witch Kasey/Glycerin 1 Pad) 1 pad TOP PRN PRN PRN Reason: ITCHING Last Admin: 04/21/22 05:19 Dose: 1 pad Zinc Oxide (Cod Liver Oil/Zinc Oxide 113 Gm Tube) 113 gm TOP PRN PRN PRN Reason: Skin Care Last Admin: 04/24/22 16:53 Dose: 1 applic Rosuvastatin Calcium [Crestor] 10 mg PO DAILY 03/30/21 Tamsulosin HCl [Flomax] 0.4 mg PO DAILY 03/30/21 predniSONE [Deltasone] 8 mg PO DAILY 03/31/21 Calcium Carbonate/Vitamin D3 [Calcium 600-Vit D3 200 Tablet] 1 each PO DAILY 06/15/21 Metoprolol Succinate 100 mg PO DAILY 06/24/21 Apixaban [Eliquis] 2.5 mg PO BID 11/09/21 Amiodarone [Pacerone] 200 mg PO DAILY 04/02/22 Ofloxacin 0.3% Ophth Drops [Ocuflox 0.3% Ophth Drops] 1 drops LEFTEYE DAILY 04/02/22 prednisoLONE 1% OPHTH DROPS [Pred Forte 1% Ophth Drops] 1 drops LEFTEYE DAILY 04/02/22 Objective - Vital Signs/Intake & Output Reviewed Vital Signs: Yes Vital Signs: Vital Signs x48h Temp Pulse Pulse Resp BP Pulse Ox 05/02/22 09:25 91 103/49 L 05/02/22 07:49 36.9 C 90 18 95/55 L 97 Intake & Output: Intake & Output 04/29/22 04/30/22 05/01/22 05/02/22 23:59 23:59 23:59 23:59 Intake Total 1454 1020 2220 4000 Output Total 2024 1422 7080 5848 Balance -571 -420 -5247 -0975 - Objective General Appearance: positive: Alert Eyes Bilateral: positive: PERRL (On right), EOMI (On arrival), Other (Left eyelid some I closed from scar tissue.) ENT: positive: Other (Deformed nose from previous surgery) Neck: positive: No JVD. negative: Stiff neck Respiratory: positive: No respiratory distress. negative: Wheezes, Rales, Rhonchi Cardiovascular: positive: Regular rate & rhythm, Systolic murmur Abdomen: positive: Non-tender, No organomegaly, Nml bowel sounds, No distention Skin: positive: Warm, Dry, Other (Decubitus lesion right upper buttock and sacrum is dry, healing. Good granulation. No pink, no redness, no oozing.) Extremities: positive: Full ROM, No pedal edema (Fluid retention and anasarca have resolved for the last few days.) Neurologic/Psychiatric: positive: Oriented x3, CN's nml (2-12), Motor nml - Lab Results Fish Bones: 05/02/22 06:00 05/01/22 05:45 Other Labs: Lab Results x24hrs 05/02/22 04/28/22 Range/Units 06:00 08:25 WBC 2.2 L (4.8-10.8) x10^3/uL RBC 2.37 L (4.70-6.10) 10^6/uL Hgb 7.5 L (14.0-18.0) g/dL Hct 23.1 L (42.0-52.0) % MCV 97.5 H (80.0-94.0) fL MCH 31.6 H (27.0-31.0) pg MCHC 32.5 (32.0-36.0) g/dL RDW 18.0 H (12.0-15.0) % Plt Count 58 L (130-450) 10^3/uL MPV 9.8 (7.4-11.4) fL Neut # (Auto) Not Reportable Lymph # (Auto) Not Reportable [place] # (Auto) Not Reportable Eos # (Auto) Not Reportable Baso # (Auto) Not Reportable Absolute Nucleated RBC Not Reportable Total Counted 100 Band Neuts % (Manual) 0 (0 - 10) % Abnorm Lymph % (Manual) 0 % Myelocytes % 1 H ( - 0) % Nucleated RBC % Not Reportable Neutrophils # (Manual) 1.3 L (1.5-6.6) 10^3/uL Lymphocytes # (Manual) 0.6 L (1.5-3.5) 10^3/uL Monocytes # (Manual) 0.2 (0.0-1.0) 10^3/uL Eosinophils # (Manual) 0.0 (0-0.7) 10^3/uL Basophils # (Manual) 0.0 (0-0.1) 10^3/uL Differential Comment MANUAL DIFFERENTIAL WBC Morphology NORMAL APPEARANCE (NORMAL) Platelet Estimate DECREASED (<130,000) (NORMAL) Platelet Morphology NORMAL APPEARANCE (NORMAL) RBC Morph Micro Appear 2+ ANISOCYTOSIS (NORMAL) Blood Type AB POSITIVE Antibody Screen NEGATIVE Crossmatch IS Only See Detail Assessment/Plan - Problem List (1) Pancytopenia Impression: . Pancytopenia: anemia/thrombocytopenia/leukopenia He has received 9 units of red packed cells, 1 unit of FFP, 8 units of irr adiated leukocyte reduced platelets. Last platelets transfused May 01. Last packed cells transfused April 29. Combination of bone marrow failure, and worsening anemia from hemorrhagic cys titis, and hematochezia. He was accepted in transfer by and we have called daily for close to 2 weeks and no beds available. Plan: Transfusion of packed red cells when hemoglobin less than 7 Transfusion of platelets when platelets less than 30. Transfusion of platelets when platelets less than 50 and bleeding Plan: I had spoken to Dr. Torres on the bone marrow transplant team 04/30 and I tentatively started making plans for discharging this patient and trying to manage his anemia in the outpatient setting. He is going to need regular blood transfusions. I had hoped that he would then coordinate between [facility] oncology and bone marrow transplant team to figure out what was wrong with him. The bone marrow transplant team attending thought it was a good idea as well. But with 05/01 severe bladder hemorrhage, I do not think we can move forward with that. I recontacted the transfer center. The bone marrow attending was updated May 01. And I have updated the bone marrow transfer center again today. In speaking to the bone marrow attending, I did ask if they could please speak to urology. Maybe between the 2 of them they can come up with a plan that would help me figure out what to do with this unfortunate gentleman who is at a critical access hospital. We have no urology here. We have no specialty services here. Today, no transfusion needed 2. Diverticular hemorrhage Assessment/Plan: Presented as hematochezia on admission 04/02 w diarrhea for a while before admisison. Had C. difficile colitis. Was treated with po Vanco. Then he had even more hematochezia and CT confirmed focal segmental diverticulitis. we had just started him on budesonide as requested by Dr. Maradiaga on the bone marrow team, when the diverticulitis was diagnosed, so we stopped steroids and started him on single agent Zosyn. He has needed blood transfusions q1-3 days, while having bloody BMs. Zosyn was started April 16. And stop April 29. 3. Sigmoid diverticulitis Presented as hematochezia on admission. Had C. difficile colitis. Was treated with po Vanco. Then he had even more hematochezia and CT confirmed focal segmental diverticulitis. First he was on budesonide as requested by Dr. Maradiaga on the bone marrow team, which was later stopped and started him on Zosyn 04/16. He has needed blood transfusions due to bloody BMs. I do worry because his white cell count goes down. He is immunocompromised. But his abdominal exam is benign. Normal bowel sounds. Having bowel movements. No fever. I thought Zosyn had been started April 22. But it was started F ebruary 4. It was continued until April 29 and stopped. 4. Nose bleed This started 04/25. He says he has had it at home. He applied pressure and has been holding tissues in his nostrils as well as ice packs placed by the nurse. Trace blood when he blows his nose now. But nothing severe. Plan: Continue with topical management We will consider a nasal pack by the ER doctor if needed 5. Anasarca This started slowly since he was put on TPN to get calories, then he gained 20 pounds since that time. Lasix 20 mg IV daily had been given for 3 days with significant decrease in leg edema and even skin wrinkling seen on thighs. With today's exam, I am really not seeing any more edema at all. Weight on April 25 was 68 kg. Weight today is 65.5 kg. Plan: IV lasix has been stopped and has been on po lasix since 04/25 6. Acute hemorrhagic cystitis as reason for admission He continues with a re-inserted Juarez. The hematuria is up and down. CBI was done the first week he was here. Urology input would be helpful, at a larger hospital. He continues to have clots, and caused no urine output w severe bladder pain 04/30 Juarez obstruction. I started CBI again. Juarez and flushing will continue. It is hoped that he would get referral to urology in the outpatient setting. When all of this began, the emergency room doctor spoke to urologist that was familiar with this patient at the [facility] on 04/02. Unfortunately that urologist has not been able to return our phone calls and I hope the patient can get an appointment with that physician to coordinate care. He began to have gross hematuria again 04/28 and by 04/30 obstructed by clots. CBI started 05/01 bc flushng was not able to stop obstruction. 7. 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 Treated and cured. History of myelodysplastic syndrome and he had a bone marrow transplant in 2020. As of April 11, Oncology concluded that he would benefit from higher level of care transfer. We called several facilities. [facility] excepted him. Dr Amador Brooks has been the physician accepting him. We have been waiting for bed assignment at from bed control. 8. Sacral decubitus ulcer It is located more on the right buttock. Stage II. Getting Desitin, offloading, And we are making an effort to improve his nutrition In looking at his wound 04/29, it is definitely improved from admission. The wound is now dry. Granulating well. This is over his right upper buttock and sacrum. His testicles had been edematous, and red. That is resolved. 9. Severe protein calorie malnutrition. TPN infused for about 2 weeks. TPN was stopped the evening of April 25. It has been interesting that this patient has been borderline hypoglycemic his entire admission. Even when TPN was infusing. He is trying to work with nutrition services. He does not like clear protein boost. He tells me it tastes terrible. I am trying to encourage him to at least drink that on ice to improve his protein status. I stopped Accu-Cheks on April 29. I added ferrous gluconate April 29. He ate breakfast lunch and dinner on the . He did eat dinner on the but no other meals. He refused breakfast today. 10. Chronic diastolic heart failure. He developed anasarca from TPN. Lasix started Plan: Since TPN is stopping, Lasix is going to 20 mg just on Monday and we will plan on canceling the Lasix after a week. The would be the last day. 11. Orthostatic hypotension. He is now on his regular prednisone of [address] Maradiaga's recommendation. Blood pressure is relatively stable since April 08. 12. Paroxysmal A-fib HR is stable. 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 Not on anticoagulation. He may need a Irwin filter but we do not do that here 14. Chronic kidney disease stable. Labs all reviewed. Renal labs have been stable. 15. COVID-positive Asymptomatic. 16. Anal lesion. Benign pathology on biopsy on this admission 17. C. difficile colitis. Completed 11 days of oral vancomycin on April 15.
[2022-05-02] MEDS: ACETAMINOPHEN 325 MG TABLET PO PRN ×3 (12:29→21:01)
[2022-05-02] MEDS: FUROSEMIDE 20 MG TABLET PO SCH (12:48)
[2022-05-02] MEDS: ATORVASTATIN 10 MG TABLET PO SCH (20:03)
[2022-05-03] MEDS: HYDROmorphone 2 MG TABLET PO PRN ×6 (01:38→23:02)
[2022-05-03] MEDS: CARBOXYMETHYLCELLULOSE OPHTH DROPS EACHEYE PRN (02:53)
[2022-05-03] MEDS: PANTOPRAZOLE 40 MG TABLET PO SCH (05:40)
[2022-05-03 06:27] LABS: BASOPHILS % (AUTO) 0.5 %; EOSINOPHILS % (AUTO) 2.2 %; HCT - HEMATOCRIT 23.2 % (42.0-52.0); HGB - HEMOGLOBIN 7.5 g/dL (14.0-18.0); LYMPHOCYTES % (AUTO) 26.4 %; MEAN CORPUSCULAR HEMOGLOBIN 31.3 pg (27.0-31.0); MEAN CORPUSCULAR HGB CONC 32.3 g/dL (32.0-36.0); MEAN CORPUSCULAR VOLUME 96.7 fL (80.0-94.0); NEUTROPHILS % (AUTO) 52.3 %; PLT - PLATELET COUNT 57 10^3/uL (130-450); RED CELL DISTRIBUTION WIDTH 18.2 % (12.0-15.0)
[2022-05-03 06:34] LABS: CALCIUM 9.1 mg/dL (8.5-10.3); CREATININE 0.9 mg/dL (0.6-1.2)
[2022-05-03 06:39] LABS: WHITE BLOOD COUNT 1.8 x10^3/uL (4.8-10.8)
[2022-05-03 06:40] LABS: ABNORMAL LYMPHS % (MANUAL) 0 %
[2022-05-03 06:47] LABS: BAND NEUTROPHILS % (MANUAL) 1 %; BASOPHILS % (MANUAL) 1 %; EOSINOPHILS # (MANUAL) 0.1 10^3/uL (0-0.7); LYMPHOCYTES # (MANUAL) 0.5 10^3/uL (1.5-3.5); LYMPHOCYTES % (MANUAL) 28 %; MONOCYTES # (MANUAL) 0.3 10^3/uL (0.0-1.0); MYELOCYTES % (MANUAL) 1 %; NEUTROPHILS # (MANUAL) 0.9 10^3/uL (1.5-6.6)
[2022-05-03 06:48] LABS: DIFFERENTIAL COMMENT MANUAL DIFFERENTIAL; PLATELET ESTIMATE, MANUAL DECREASED (<130,000) (NORMAL); PLATELET MORPHOLOGY NORMAL APPEARANCE (NORMAL); WBC MORPHOLOGY (MULTIPLE) NORMAL APPEARANCE (NORMAL)
[2022-05-03] MEDS: TAMSULOSIN 0.4 MG CAPSULE PO SCH (08:55)
[2022-05-03] MEDS: MULTIVITAMIN W/MINERALS TABLET PO SCH (08:55)
[2022-05-03] MEDS: FERROUS GLUCONATE 324 MG TABLET PO SCH (08:55)
[2022-05-03] MEDS: CALCIUM CARB (OYSTER SHELL) 500 MG TABLET PO SCH (08:55)
[2022-05-03] MEDS: CHOLECALCIFEROL 25 MCG TABLET PO SCH (08:55)
[2022-05-03] MEDS: OFLOXACIN 0.3% OPHTH DROPS LEFTEYE SCH (08:56)
[2022-05-03] MEDS: LIDOCAINE OINTMENT 5% 35.44 GM TUBE TOP SCH ×4 (08:56→20:25)
[2022-05-03] MEDS: FLUTICASONE NASAL SPRAY NAS SCH (08:56)
[2022-05-03] MEDS: SODIUM CHLORIDE FLUSH 0.9% 10 ML SYRINGE IVP SCH ×3 (08:57→20:25)
[2022-05-03] MEDS: prednisoLONE 1% OPHTH DROPS 75 DROPS/5 ML BOTTLE LEFTEYE SCH (08:57)
[2022-05-03] MEDS: predniSONE 20 MG TABLET PO SCH (09:00)
[2022-05-03] MEDS: AMIODARONE 200 MG TABLET PO SCH (09:01)
[2022-05-03] MEDS: ACETAMINOPHEN 325 MG TABLET PO PRN ×2 (12:15→20:24)
--- NOTE | 2022-05-03 19:15 | PROVIDER PROGRESS NOTE ---
Assessment/Plan - Problem List (1) Pancytopenia Assessment/Plan: Pancytopenia: anemia/thrombocytopenia/leukopenia He has received 9 units of red packed cells, 1 unit of FFP, 9 units of irradiat ed leukocyte reduced platelets. Last platelets transfused today 05/03. Last packed cells transfused April 29. 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 He was accepted in transfer by and we have called daily for close to 2 weeks and no beds available. Our plan was; Transfusion of packed red cells when hemoglobin less than 7 Transfusion of platelets when platelets less than 30. Transfusion of platelets when platelets less than 50 and bleeding Plan: The last Hospitalist, Dr Kitchen, had spoken to Dr. Torres on the bone marrow transplant team 04/30 and then tentatively started making plans for discharging this patient and trying to manage his anemia in the outpatient setting. He is going to need regular blood transfusions. We hope that he would then coordinate between [facility] oncology and bone marrow transplant team to figure out what was wrong with him. The bone marrow transplant team attending thought it was a good idea as well. But with 05/01 severe bladder hemorrhage restarting, we can move forward with that. The bone marrow attending was updated May 01. In speaking to the bone marrow attending, Dr Kitchen did ask if they could please speak to Urology. Maybe between the 2 of them, they can come up with a plan that would help us figure out what to do with this unfortunate gentleman, who is at a critical access hospital. We have no urology here. We have no specialty services here. The last recommendation from [facility] bone marrow transplant was to increase his platelets to about 70, which may help all the bleeding stop, that would be the time to discharge him. To achieve that, a plt a transfusion was ordered for today 05/03, when plt count came back at 59. 2. Acute hemorrhagic cystitis This was original reason for admission, which then improved after CBI was done the first week he was here. He continues to have a re-inserted Juarez because the hematuria is up and down. Urology input would be helpful, at a larger hospital. When all of this began, the emergency room doctor spoke to urologist that was familiar with this patient at the [facility] on 04/02. He began to have gross hematuria again 04/28 and by 04/30, the Juarez was obstructed by clots which caused no urine output and severe bladder pain. CBI started 05/01 because Juarez flushing was not able to stop obstruction. Plan: We started CBI again. Juarez and CBI will continue. Will remove Juarez when no hematuria for 24 hours It is hoped that he will see urology in the outpatient setting, soon after [facility]. Will try to get him an appt 3. Diverticular hemorrhage Assessment/Plan: Presented as hematochezia on admission 04/02 w diarrhea for a while before admisison. Had C. difficile colitis. Was treated with po Vanco. Then he had even more hematochezia and CT confirmed focal segmental diverticulitis. We had just started him on budesonide as requested by Dr. Maradiaga on the bone marrow team, when the diverticulitis was diagnosed, so we stopped steroids and started him on single agent Zosyn. He has needed blood transfusions q1-3 days, while having bloody BMs. Zosyn was started April 16, and stopped April 29. 4. Sigmoid diverticulitis Presented as hematochezia on admission. Had C. difficile colitis. Was treated with po Vanco. Then he had even more hematochezia and CT confirmed focal segmental diverticulitis. First he was on budesonide as requested by Dr. Maradiaga on the bone marrow team, which was later stopped and started him on Zosyn 04/16. He has needed blood transfusions due to bloody BMs. We do worry because his white cell count goes down. He is immunocompromised. But his abdominal exam is benign. Normal bowel sounds. Having bowel movements. No fever. I thought Zosyn had been started April 22. But it was started April 16. It was continued until April 29 and stopped. 5. Nose bleed This started 04/25. He says he has had it at home. He applied pressure and has been holding tissues in his nostrils as well as ice packs placed by the nurse. Trace blood when he blows his nose now. But nothing severe. Plan: Continue with topical management We will consider a nasal pack by the ER doctor if needed 6. Anasarca This started slowly after he was put on TPN to get calories, then he gained 20 pounds since that time. Lasix 20 mg IV daily had been given for 3 days with significant decrease in leg edema and even skin wrinkling seen on thighs. With today's exam, I am really not seeing any more edema at all. Weight on April 25 was 68 kg. Weight recently is 65.5 kg. Plan: IV lasix has been stopped and has been on po lasix since 04/25 7. 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 Treated and cured. History of myelodysplastic syndrome and he had a bone marrow transplant in 2020. As of April 11, Oncology concluded that he would benefit from higher level of care transfer. We called several facilities. [facility] excepted him. Dr Amador Brooks has been the physician accepting him. We have been w paulino for bed assignment at from bed control. 8. Sacral decubitus ulcer It is located more on the right buttock. Stage II. Getting Desitin, offloading, And we are making an effort to improve his nutrition In looking at his wound 04/29, it is definitely improved from admission. The wound is now dry. Granulating well. This is over his right upper buttock and sacrum. His testicles had been edematous, and red. That is resolved. 9. Severe protein calorie malnutrition. TPN infused for about 2 weeks. TPN was stopped the evening of April 25. It has been interesting that this patient has been borderline hypoglycemic his entire admission. Even when TPN was infusing. He is trying to work with nutrition services. He does not like clear protein boost. He tells me it tastes terrible. I am trying to encourage him to at least drink that on ice to improve his protein status. We stopped Accu-Cheks on April 29. We added ferrous gluconate April 29. He ate breakfast lunch and dinner on the . He did eat dinner on the but no other meals. He refused breakfast today. 10. Chronic diastolic heart failure. He developed anasarca from TPN. Lasix started iv then po Plan: Since TPN is stopping, Lasix is going to 20 mg just on Monday and stopping bafter a week. Apr 29 was the last Lasix day. 11. Orthostatic hypotension. He is now on his regular prednisone of [address] day [address] Dr. Maradiaga's recommendation. Prior to that, due to low blood pressure at admission, he was on stress dose steroids for several days. Blood pressure is relatively stable since April 08. 12. Paroxysmal A-fib HR is stable. He is no longer on anticoagulation because of so much bleeding 13. History of DVT and PE. Not on anticoagulation. He may need a Goran filter but we do not do that here 14. Chronic kidney disease stable. Labs all reviewed. Renal labs have been stable. 15. COVID-positive Asymptomatic. 16. Anal lesion. Benign pathology on biopsy on this admission 17. C. difficile colitis. Completed 11 days of oral vancomycin on April 15. - Current Meds Current Meds: Current Medications Generic Name Dose Route Start Last Admin Trade Name Freq PRN Reason Stop Dose Admin Acetaminophen 650 mg 04/02/22 16:39 05/03/22 12:15 Acetaminophen 325 Mg Tablet PO 650 mg Q4HR PRN Administration Pain 1 to 4, or Fever Amiodarone HCl 100 mg 04/08/22 09:00 05/03/22 09:01 Amiodarone 200 Mg Tablet PO 100 mg DAILY JUJU Administration Atorvastatin Calcium 10 mg 04/04/22 21:00 05/02/22 20:03 Atorvastatin 10 Mg Tablet PO 10 mg 2100 JUJU Administration Calcium Carbonate/Glycine 500 mg 04/04/22 09:00 05/03/22 08:55 Calcium Carb (Oyster Shell) 500 Mg Tablet PO 500 mg 0900 JUJU Administration Calcium Carbonate/Glycine 500 mg 04/04/22 18:17 04/15/22 21:08 Calcium Carbonate Chew 500 Mg Tablet PO 500 mg TID PRN Administration INDIGESTION Carboxymethylcellulose 1 drops 04/28/22 06:15 05/03/22 02:53 Carboxymethylcellulose Ophth Drops EACHEYE 1 drops Q2HR PRN Administration Dry Eye Cholecalciferol 50 mcg 04/04/22 17:00 05/03/22 08:55 Cholecalciferol 25 Mcg Tablet PO 50 mcg DAILY JUJU Administration Ferrous Gluconate 324 mg 04/30/22 08:00 05/03/22 08:55 Ferrous Gluconate 324 Mg Tablet PO 324 mg DAILYWM JUJU Administration Fluticasone Propionate 1 sprays 04/05/22 09:00 05/03/22 08:56 Fluticasone Nasal [place] SHENA 1 spr DAILY JUJU Administration Furosemide 20 mg 04/27/22 13:00 05/02/22 12:48 Furosemide 20 Mg Tablet PO 20 mg [id number] JUJU Administration Heparin Sodium (Beef Lung) 30 - 50 unit 04/03/22 16:08 04/04/22 08:25 Heparin Flush 50 Units/5 Ml Syringe IVP 50 unit PRN PRN Administration Port Protocol (<24 hours) Hydromorphone HCl 4 mg 04/19/22 00:06 05/03/22 18:47 Hydromorphone 2 Mg Tablet PO 4 mg Q4HR PRN Administration Severe Pain Hydromorphone HCl 2 mg 05/01/22 10:44 05/02/22 10:46 Hydromorphone 2 Mg/Ml Vial IVP 2 mg Q2H PRN Administration PAIN Lidocaine 1 applic 04/15/22 13:00 05/03/22 18:48 Lidocaine Ointment 5% 35.44 Gm Tube TOP 1 applic QID JUJU Administration Multi-Ingredient Ointment 1 applic 04/04/22 10:11 05/02/22 12:06 Zinc Oxide 20% Oint 30 Gm Tube TOP 1 applic PRN PRN Administration Skin Care Multivitamins/Minerals 1 tab 04/29/22 09:00 05/03/22 08:55 Multivitamin W/Minerals Tablet PO 1 tab DAILYWM JUJU Administration Ofloxacin 1 drops 04/04/22 09:00 05/03/22 08:56 Ofloxacin 0.3% Ophth Drops LEFTEYE 1 drops DAILY JUJU Administration Ondansetron HCl 4 mg 04/02/22 16:39 04/05/22 02:20 Ondansetron 4 Mg/2 Ml Vial IVP 4 mg Q6HR PRN Administration Nausea / Vomiting Oxycodone HCl 5 mg 04/05/22 08:52 05/01/22 08:40 Oxycodone 5 Mg Tablet PO 5 mg Q6HR PRN Administration Pain 5 to 7 Pantoprazole Sodium 40 mg 04/04/22 19:00 05/03/22 05:40 Pantoprazole 40 Mg Tablet PO 40 mg QDAC JUJU Administration Prednisolone 1 drops 04/04/22 09:00 05/03/22 08:57 Prednisolone 1% Ophth Drops 75 Drops/5 Ml Bottle LEFTEYE 1 drops DAILY JUJU Administration Prednisone 10 mg 04/16/22 08:00 05/03/22 09:00 Prednisone 20 Mg Tablet PO 10 mg DAILYWM JUJU Administration Sodium Chloride 10 ml 04/02/22 16:39 05/02/22 10:45 Sodium Chloride Flush 0.9% 10 Ml Syringe IVP 20 ml PRN PRN Administration NEEDED PER PROVIDER ORDERS Sodium Chloride 10 ml 04/02/22 17:00 05/03/22 18:48 Sodium Chloride Flush 0.9% 10 Ml Syringe IVP 10 ml 0100,0900,1700 JUJU Administration Sodium Chloride 2 sprays 04/30/22 07:37 05/01/22 16:46 Sodium Chloride 0.65% Nasal [place] SHENA 1 spr Q4HR PRN Administration Nasal Congestion Tamsulosin HCl 0.4 mg 04/08/22 08:02 05/03/22 08:55 Tamsulosin 0.4 Mg Capsule PO 0.4 mg DAILY JUJU Administration Throat Lozenges 1 lozenge 04/19/22 02:53 04/29/22 06:03 Benzocaine/Menthol Lozenge MM 1 lozenge Q2HR PRN Administration Throat pain Witch [place]ase[place]/Glycerin 1 pad 04/03/22 15:28 04/21/22 05:19 [place]/Glycerin 1 Pad TOP 1 pad PRN PRN Administration ITCHING Zinc Oxide 113 gm 04/06/22 09:26 04/24/22 16:53 Cod Liver Oil/Zinc Oxide 113 Gm Tube TOP 1 applic PRN PRN Administration Skin Care - Lab Result Fish Bone Diagrams: 05/03/22 05:46 05/03/22 05:46 - Additional Planning My Orders: My Active Orders 05/03/22 08:27 Transfuse Platelet Pheresis Pk [RC] .ONCE Subjective - Subjective Patient Reports: Resting Comfortably Objective Vital Signs: Vital Signs - 24 hr 05/02/22 05/03/22 05/03/22 23:35 08:49 12:05 Temperature 37.1 C 36.5 C 36.9 C Heart Rate [ 84 81 90 Brachial] Respiratory 18 18 19 Rate Blood Pressure 96/50 L 99/54 L 102/51 L [Right Brachial artery] O2 Saturation 97 97 100 05/03/22 05/03/22 05/03/22 12:27 12:31 16:00 Temperature 36.9 C 36.2 C L 36.2 C L Heart Rate [ 85 86 83 Brachial] Respiratory 19 19 16 Rate Blood Pressure 107/54 L 108/52 L 100/61 [Right Brachial artery] O2 Saturation 99 99 97 Oxygen O2 Source Room air I&O (Last 24 Hrs): Intake and Output Totals x24h 05/01/22 05/02/22 05/03/22 23:59 23:59 23:59 Intake Total 2220 7310 7205 Output Total 3882 3053 7478 Balance -7251 -5983 -223 General: Alert, Oriented x3 HEENT: Mucous membr. moist/pink, Other (L eye is patched) Neuro: Alert, Non Focal Cardiovascular: No murmurs Respiratory: No respiratory distress Abdomen: Soft Extremities: No clubbing, No edema - Results Results: Laboratory Results WBC 1.8 x10^3/uL (4.8-10.8) L* 05/03/22 05:46 RBC 2.40 10^6/uL (4.70-6.10) L 05/03/22 05:46 Hgb 7.5 g/dL (14.0-18.0) L 05/03/22 05:46 Hct 23.2 % (42.0-52.0) L 05/03/22 05:46 MCV 96.7 fL (80.0-94.0) H 05/03/22 05:46 MCH 31.3 pg (27.0-31.0) H 05/03/22 05:46 MCHC 32.3 g/dL (32.0-36.0) 05/03/22 05:46 RDW 18.2 % (12.0-15.0) H 05/03/22 05:46 Plt Count 57 10^3/uL (130-450) L 05/03/22 05:46 MPV 10.0 fL (7.4-11.4) 05/03/22 05:46 Neut # (Auto) Not Reportable 05/03/22 05:46 Lymph # (Auto) Not Reportable 05/03/22 05:46 [place] # (Auto) Not Reportable 05/03/22 05:46 Eos # (Auto) Not Reportable 05/03/22 05:46 Baso # (Auto) Not Reportable 05/03/22 05:46 Absolute Nucleated RBC Not Reportable 05/03/22 05:46 Total Counted 100 05/03/22 05:46 Band Neuts % (Manual) 1 % (0-10) 05/03/22 05:46 Reactive Lymphs % (Man) 4 % 04/18/22 06:50 Abnorm Lymph % (Manual) 0 % 05/03/22 05:46 Metamyelocytes % 2 % (-0) H 04/19/22 06:35 Myelocytes % 1 % (-0) H 05/03/22 05:46 Nucleated RBC % Not Reportable 05/03/22 05:46 Neutrophils # (Manual) 0.9 10^3/uL (1.5-6.6) L 05/03/22 05:46 Lymphocytes # (Manual) 0.5 10^3/uL (1.5-3.5) L 05/03/22 05:46 Monocytes # (Manual) 0.3 10^3/uL (0.0-1.0) 05/03/22 05:46 Eosinophils # (Manual) 0.1 10^3/uL (0-0.7) 05/03/22 05:46 Basophils # (Manual) 0.0 10^3/uL (0-0.1) 05/03/22 05:46 Nucleated RBCs 1 % 04/30/22 08:30 Differential Comment MANUAL DIFFERENTIAL 05/03/22 05:46 Manual Slide Review Indicated 04/30/22 08:30 WBC Morphology NORMAL APPEARANCE (NORMAL) 05/03/22 05:46 Platelet Estimate DECREASED (<130,000) (NORMAL) 05/03/22 05:46 Platelet Morphology NORMAL APPEARANCE (NORMAL) 05/03/22 05:46 RBC Morph Micro Appear 2+ ANISOCYTOSIS (NORMAL) 1+ POLYCHROMASIA (NORMAL) 05/03/22 05:46 RBC Morph Micro Appear 2+ ANISOCYTOSIS (NORMAL) 1+ POLYCHROMASIA (NORMAL) 05/03/22 05:46 PT 12.8 secs (9.9-12.6) H 04/02/22 05:49 INR 1.2 (0.8-1.2) 04/02/22 05:49 Sodium 136 mmol/L (135-145) 05/03/22 05:46 Potassium 4.0 mmol/L (3.5-5.0) 05/03/22 05:46 Chloride 99 mmol/L (101-111) L 05/03/22 05:46 Carbon Dioxide 29 mmol/L (21-32) 05/03/22 05:46 Anion Gap 8.0 (6-13) 05/03/22 05:46 BUN 17 mg/dL (6-20) 05/03/22 05:46 Creatinine 0.9 mg/dL (0.6-1.2) 05/03/22 05:46 Estimated GFR (MDRD) 83 (>89) L 05/03/22 05:46 Glucose 96 mg/dL (70-100) 05/03/22 05:46 POC Whole Bld Glucose 107 mg/dL (70 - 100) H 04/29/22 11:48 Calcium 9.1 mg/dL (8.5-10.3) 05/03/22 05:46 Phosphorus 3.2 mg/dL (2.5-4.6) 04/22/22 05:20 Magnesium 1.9 mg/dL (1.7-2.8) 04/23/22 05:09 Total Bilirubin 0.4 mg/dL (0.2-1.0) 04/22/22 05:20 AST 17 IU/L (10-42) 04/22/22 05:20 ALT 20 IU/L (10-60) 04/22/22 05:20 Alkaline Phosphatase 59 IU/L (42-121) 04/22/22 05:20 Total Protein 3.9 g/dL (6.7-8.2) L 04/22/22 05:20 Albumin 1.7 g/dL (3.2-5.5) L 04/22/22 05:20 Globulin 2.2 g/dL (2.1-4.2) 04/22/22 05:20 Albumin/Globulin Ratio 0.8 (1.0-2.2) L 04/22/22 05:20 Prealbumin 13 mg/dL (18-45) L 04/22/22 05:20 Triglycerides 88 mg/dL (-149) 04/22/22 05:20 Lipase 21 U/L (22-51) L 04/02/22 05:49 Urine Color RED/BLOODY 04/02/22 11:40 Urine Clarity TURBID (CLEAR) 04/02/22 11:40 Urine pH 6.0 PH (5.0-7.5) 04/02/22 11:40 Ur Specific [place] 1.025 (1.002-1.030) 04/02/22 11:40 Urine Protein >=300 mg/dL (NEGATIVE) H 04/02/22 11:40 Urine Glucose (UA) NEGATIVE mg/dL (NEGATIVE) 04/02/22 11:40 Urine Ketones NEGATIVE mg/dL (NEGATIVE) 04/02/22 11:40 Urine Occult Blood LARGE (NEGATIVE) H 04/02/22 11:40 Urine Nitrite NEGATIVE (NEGATIVE) 04/02/22 11:40 Urine Bilirubin NEGATIVE (NEGATIVE) 04/02/22 11:40 Urine Urobilinogen 0.2 (NORMAL) E.U./dL (NORMAL) 04/02/22 11:40 Ur Leukocyte Esterase NEGATIVE (NEGATIVE) 04/02/22 11:40 Urine RBC TNTC /HPF (0-5) H 04/02/22 11:40 Urine WBC 6-10 /HPF (0-3) H 04/02/22 11:40 Ur Squamous Epith Cells NONE SEEN (<= Few) 04/02/22 11:40 Urine Bacteria None Seen /HPF (None Seen) 04/02/22 11:40 Urine Yeast PRESENT 04/02/22 11:40 Ur Microscopic Review INDICATED 04/02/22 11:40 Urine Culture Comments NOT INDICATED 04/02/22 11:40 Stl C. diff Tox B Gene POSITIVE (NEGATIVE) A* 04/05/22 13:50 SARS-CoV-2 (PCR) DETECTED A 04/12/22 15:45 Blood Type AB POSITIVE 05/03/22 08:41 Antibody Screen NEGATIVE 04/28/22 08:25 Crossmatch IS Only See Detail 04/28/22 08:25 - Procedures Procedures: Procedures TRANSFUSE NONAUT PLATELETS IN PERIPH VEIN, PERC (06/24/21)
[2022-05-03] MEDS: ATORVASTATIN 10 MG TABLET PO SCH (20:25)
[2022-05-03] MEDS: oxyCODONE 5 MG TABLET PO PRN (20:25)
[2022-05-04] MEDS: oxyCODONE 5 MG TABLET PO PRN ×2 (02:52→08:57)
[2022-05-04] MEDS: ACETAMINOPHEN 325 MG TABLET PO PRN (05:59)
[2022-05-04] MEDS: HYDROmorphone 2 MG TABLET PO PRN ×4 (05:59→21:36)
[2022-05-04] MEDS: PANTOPRAZOLE 40 MG TABLET PO SCH (06:00)
[2022-05-04 06:26] LABS: BASOPHILS % (AUTO) 0.5 %; EOSINOPHILS % (AUTO) 1.5 %; HCT - HEMATOCRIT 23.1 % (42.0-52.0); HGB - HEMOGLOBIN 7.6 g/dL (14.0-18.0); MEAN CORPUSCULAR HEMOGLOBIN 31.9 pg (27.0-31.0); MEAN CORPUSCULAR HGB CONC 32.9 g/dL (32.0-36.0); MEAN CORPUSCULAR VOLUME 97.1 fL (80.0-94.0); MONOCYTES % (AUTO) 14.5 %; NEUTROPHILS % (AUTO) 58.5 %; PLT - PLATELET COUNT 75 10^3/uL (130-450); RED BLOOD COUNT 2.38 10^6/uL (4.70-6.10); RED CELL DISTRIBUTION WIDTH 18.5 % (12.0-15.0)
[2022-05-04 06:33] LABS: ABNORMAL LYMPHS % (MANUAL) 0 %; BAND NEUTROPHILS % (MANUAL) 0 %
[2022-05-04 06:40] LABS: BASOPHILS % (MANUAL) 1 %; LYMPHOCYTES # (MANUAL) 0.5 10^3/uL (1.5-3.5); LYMPHOCYTES % (MANUAL) 26 %; MONOCYTES # (MANUAL) 0.2 10^3/uL (0.0-1.0); NEUTROPHILS # (MANUAL) 1.2 10^3/uL (1.5-6.6)
[2022-05-04 06:41] LABS: DIFFERENTIAL COMMENT MANUAL DIFFERENTIAL; PLATELET ESTIMATE, MANUAL DECREASED (<130,000) (NORMAL); PLATELET MORPHOLOGY NORMAL APPEARANCE (NORMAL); WBC MORPHOLOGY (MULTIPLE) NORMAL APPEARANCE (NORMAL)
[2022-05-04] MEDS: LIDOCAINE OINTMENT 5% 35.44 GM TUBE TOP SCH ×4 (08:56→21:36)
[2022-05-04] MEDS: FLUTICASONE NASAL SPRAY NAS SCH (08:56)
[2022-05-04] MEDS: MULTIVITAMIN W/MINERALS TABLET PO SCH (08:57)
[2022-05-04] MEDS: FERROUS GLUCONATE 324 MG TABLET PO SCH (08:57)
[2022-05-04] MEDS: CALCIUM CARB (OYSTER SHELL) 500 MG TABLET PO SCH (08:57)
[2022-05-04] MEDS: TAMSULOSIN 0.4 MG CAPSULE PO SCH (08:57)
[2022-05-04] MEDS: predniSONE 20 MG TABLET PO SCH (08:57)
[2022-05-04] MEDS: AMIODARONE 200 MG TABLET PO SCH (08:57)
[2022-05-04] MEDS: CHOLECALCIFEROL 25 MCG TABLET PO SCH (08:58)
[2022-05-04] MEDS: SODIUM CHLORIDE FLUSH 0.9% 10 ML SYRINGE IVP SCH ×2 (08:58→21:36)
[2022-05-04] MEDS: prednisoLONE 1% OPHTH DROPS 75 DROPS/5 ML BOTTLE LEFTEYE SCH (08:58)
[2022-05-04] MEDS: OFLOXACIN 0.3% OPHTH DROPS LEFTEYE SCH (08:58)
[2022-05-04] MEDS: ZINC OXIDE 20% OINT 30 GM TUBE TOP PRN (09:01)
[2022-05-04] MEDS: FUROSEMIDE 20 MG TABLET PO SCH (13:22)
--- NOTE | 2022-05-04 15:22 | PROVIDER PROGRESS NOTE ---
Assessment/Plan - Problem List (1) Pancytopenia Assessment/Plan: Pancytopenia: anemia/thrombocytopenia/leukopenia He has received 9 units of red packed cells, 1 unit of FFP, 9 units of irradiat ed leukocyte reduced platelets. Last platelets transfused today 05/03. Last packed cells transfused April 29. 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 He was accepted in transfer by and we have called daily for close to 2 weeks and no beds available. Our plan was; Transfusion of packed red cells when hemoglobin less than 7 Transfusion of platelets when platelets less than 70 Plan: The last Hospitalist had spoken to Dr. Torres on the bone marrow transplant team 04/30 and then tentatively started making plans for discharging this patient and trying to manage his anemia in the outpatient setting. He is going to need regular blood transfusions. We hope that he would then coordinate between [facility] oncology and bone marrow transplant team to figure out what was wrong with him. But with 05/01 severe bladder hemorrhage restarting, we slowed moving forward with that. He also needs input from Urology, and we have no urology here. The last recommendation from bone marrow transplant was to increase his platelets to about 70, which may help all the bleeding stop. That would be the time to discharge him. Today I asked our registered respiratory therapist to start setting up a schedule for every 3 day blood and platelet transfusions to be done at the [facility], under the order of Dr. Ortiz. After discharge from here, he will be going to formerly [facility] for PT and OT rehab, therefore [facility] is in close proximity to [facility]. 2. Acute hemorrhagic cystitis This was original reason for admission, which then improved after CBI was done the first week he was here. He continues to have a re-inserted Juarez because the hematuria is up and down. Urology input would be helpful, at a larger hospital. When all of this began, the emergency room doctor spoke to urologist that was familiar with this patient at the [facility] on 04/02. He began to have gross hematuria again 04/28 and by 04/30, the Juarez was obstructed by clots which caused no urine output and severe bladder pain. CBI started 05/01 because Juarez flushing was not able to stop obstruction. The last clots in Juarez bag were seen at [facility] today, 05/04 Plan: We started CBI again. Juarez and CBI will continue. Will remove Juarez when no hematuria for 24 hours, so possibly tomorrow morning 05/05 It is hoped that he will see Urology in the outpatient setting, soon after [facility]. I asked our [facility] RN to get him an appt 3. Diverticular hemorrhage Assessment/Plan: Resolved Presented as hematochezia on admission 04/02 w diarrhea for a while before admisison. Had C. difficile colitis. Was treated with po Vanco. Then he had even more hematochezia and CT confirmed focal segmental diverticulitis. We had just started him on budesonide as requested by Dr. Maradiaga on the bone marrow team, when the diverticulitis was diagnosed, so we stopped steroids and started him on single agent Zosyn. He has needed blood transfusions q1-3 days, while having bloody BMs. Zosyn was started April 16, and stopped April 29. 4. Sigmoid diverticulitis Resolved Presented as hematochezia on admission. Had C. difficile colitis. Was treated with po Vanco. Then he had even more hematochezia and CT confirmed focal segmental diverticulitis. First he was on budesonide as requested by Dr. Maradiaga on the bone marrow team, which was later stopped and started him on Zosyn 04/16. He has needed blood transfusions due to bloody BMs. We do worry because his white cell count goes down. He is immunocompromised. But his abdominal exam is benign. Normal bowel sounds. Having bowel movements. No fever. I thought Zosyn had been started April 22. But it was started April 16. It was continued until April 29 and stopped. Improved and chronic/stable problems: 5. Nose bleed Resolved This started 04/25. He says he has had it at home. He applied pressure and has been holding tissues in his nostrils as well as ice packs placed by the nurse. Trace blood when he blows his nose now. But nothing severe. Plan: Continue with topical management We will consider a nasal pack by the ER doctor if needed 6. Anasarca Resolved This started slowly after he was put on TPN to get calories, then he gained 20 pounds since that time. Lasix 20 mg IV daily had been given for 3 days with significant decrease in leg edema and even skin wrinkling seen on thighs. With today's exam, I am really not seeing any more edema at all. Weight on April 25 was 68 kg. Weight recently is 65.5 kg. Plan: IV lasix has been stopped and has been on po lasix since 04/25 7. Leukopenia Chronic. 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 Treated and cured. History of myelodysplastic syndrome and he had a bone marrow transplant in 2020. As of April 11, Oncology concluded that he would benefit from higher level of care transfer. We called several facilities. [facility] excepted him. Dr Amador Brooks has been the physician accepting him. We have been waiting for bed assignment at from bed control. 8. Sacral decubitus ulcer Improved It is located more on the right buttock. Stage II. Getting Desitin, offloading, And we are making an effort to improve his nutrition In looking at his wound 04/29, it is definitely improved from admission. The wound is now dry. Granulating well. This is over his right upper buttock and sacrum. His testicles had been edematous, and red. That is resolved. 9. Severe protein calorie malnutrition Improved TPN infused for about 2 weeks. TPN was stopped the evening of April 25. It has been interesting that this patient has been borderline hypoglycemic his entire admission. Even when TPN was infusing. He is trying to work with nutrition services. He does not like clear protein boost. He tells me it tastes terrible. I am trying to encourage him to at least drink that on ice to improve his protein status. We stopped Accu-Cheks on April 29. We added ferrous gluconate April 29. He ate breakfast lunch and dinner on the . He did eat dinner on the but no other meals. He refused breakfast today. 10. Chronic diastolic heart failure Improved He developed anasarca from TPN. Lasix started iv then po Plan: Since TPN is stopping, Lasix is going to 20 mg just on Monday and stopping bafter a week. Apr 29 was the last Lasix day. 11. Orthostatic hypotension Improved He is now on his regular prednisone of 10 mg [address] day [address] Dr. Maradiaga's recommendation. Prior to that, due to low blood pressure at admission, he was on stress dose steroids for several days. Blood pressure is relatively stable since April 08. 12. Paroxysmal A-fib HR is stable. He is no longer on anticoagulation because of so much bleeding 13. History of DVT and PE. Not on anticoagulation. He may need a Turner filter but we do not do that here 14. Chronic kidney disease stable Improved Labs all reviewed. Renal labs have been stable. 15. COVID-positive Asymptomatic. 16. Anal lesion. Benign pathology on biopsy on this admission 17. C. difficile colitis Resolved Completed 11 days of oral vancomycin on April 15. - Current Meds Current Meds: Current Medications Generic Name Dose Route Start Last Admin Trade Name Freq PRN Reason Stop Dose Admin Acetaminophen 650 mg 04/02/22 16:39 05/04/22 05:59 Acetaminophen 325 Mg Tablet PO 650 mg Q4HR PRN Administration Pain 1 to 4, or Fever Amiodarone HCl 100 mg 04/08/22 09:00 05/04/22 08:57 Amiodarone 200 Mg Tablet PO 100 mg DAILY JUJU Administration Atorvastatin Calcium 10 mg 04/04/22 21:00 05/03/22 20:25 Atorvastatin 10 Mg Tablet PO 10 mg 2100 JUJU Administration Calcium Carbonate/Glycine 500 mg 04/04/22 09:00 05/04/22 08:57 Calcium Carb (Oyster Shell) 500 Mg Tablet PO 500 mg 0900 JUJU Administration Calcium Carbonate/Glycine 500 mg 04/04/22 18:17 04/15/22 21:08 Calcium Carbonate Chew 500 Mg Tablet PO 500 mg TID PRN Administration INDIGESTION Carboxymethylcellulose 1 drops 04/28/22 06:15 05/03/22 02:53 Carboxymethylcellulose Ophth Drops EACHEYE 1 drops Q2HR PRN Administration Dry Eye Cholecalciferol 50 mcg 04/04/22 17:00 05/04/22 08:58 Cholecalciferol 25 Mcg Tablet PO 50 mcg DAILY JUJU Administration Ferrous Gluconate 324 mg 04/30/22 08:00 05/04/22 08:57 Ferrous Gluconate 324 Mg Tablet PO 324 mg DAILYWM JUJU Administration Fluticasone Propionate 1 sprays 04/05/22 09:00 05/04/22 08:56 Fluticasone Nasal [place] SHENA 1 spr DAILY JUJU Administration Furosemide 20 mg 04/27/22 13:00 05/04/22 13:22 Furosemide 20 Mg Tablet PO Not Given MOWEFR JUJU Heparin Sodium (Beef Lung) 30 - 50 unit 04/03/22 16:08 05/04/22 09:12 Heparin Flush 50 Units/5 Ml Syringe IVP 30 unit PRN PRN Administration Port Protocol (<24 hours) Hydromorphone HCl 4 mg 04/19/22 00:06 05/04/22 13:23 Hydromorphone 2 Mg Tablet PO 4 mg Q4HR PRN Administration Severe Pain Hydromorphone HCl 2 mg 05/01/22 10:44 05/02/22 10:46 Hydromorphone 2 Mg/Ml Vial IVP 2 mg Q2H PRN Administration PAIN Lidocaine 1 applic 04/15/22 13:00 05/04/22 13:23 Lidocaine Ointment 5% 35.44 Gm Tube TOP 1 applic QID JUJU Administration Multi-Ingredient Ointment 1 applic 04/04/22 10:11 05/04/22 09:01 Zinc Oxide 20% Oint 30 Gm Tube TOP 1 applic PRN PRN Administration Skin Care Multivitamins/Minerals 1 tab 04/29/22 09:00 05/04/22 08:57 Multivitamin W/Minerals Tablet PO 1 tab DAILYWM JUJU Administration Ofloxacin 1 drops 04/04/22 09:00 05/04/22 08:58 Ofloxacin 0.3% Ophth Drops LEFTEYE 1 drops DAILY JUJU Administration Ondansetron HCl 4 mg 04/02/22 16:39 04/05/22 02:20 Ondansetron 4 Mg/2 Ml Vial IVP 4 mg Q6HR PRN Administration Nausea / Vomiting Oxycodone HCl 5 mg 04/05/22 08:52 05/04/22 08:57 Oxycodone 5 Mg Tablet PO 5 mg Q6HR PRN Administration Pain 5 to 7 Pantoprazole Sodium 40 mg 04/04/22 19:00 05/04/22 06:00 Pantoprazole 40 Mg Tablet PO 40 mg QDAC JUJU Administration Prednisolone 1 drops 04/04/22 09:00 05/04/22 08:58 Prednisolone 1% Ophth Drops 75 Drops/5 Ml Bottle LEFTEYE 1 drops DAILY JUJU Administration Prednisone 10 mg 04/16/22 08:00 05/04/22 08:57 Prednisone 20 Mg Tablet PO 10 mg DAILYWM JUJU Administration Sodium Chloride 10 ml 04/02/22 16:39 05/02/22 10:45 Sodium Chloride Flush 0.9% 10 Ml Syringe IVP 20 ml PRN PRN Administration NEEDED PER PROVIDER ORDERS Sodium Chloride 10 ml 04/02/22 17:00 05/04/22 08:58 Sodium Chloride Flush 0.9% 10 Ml Syringe IVP 10 ml 0100,0900,1700 JUJU Administration Sodium Chloride 2 sprays 04/30/22 07:37 05/01/22 16:46 Sodium Chloride 0.65% Nasal [place] SHENA 1 spr Q4HR PRN Administration Nasal Congestion Tamsulosin HCl 0.4 mg 04/08/22 08:02 05/04/22 08:57 Tamsulosin 0.4 Mg Capsule PO 0.4 mg DAILY JUJU Administration Throat Lozenges 1 lozenge 04/19/22 02:53 04/29/22 06:03 Benzocaine/Menthol Lozenge MM 1 lozenge Q2HR PRN Administration Throat pain Witch Kasey/Glycerin 1 pad 04/03/22 15:28 04/21/22 05:19 Witch Kasey/Glycerin 1 Pad TOP 1 pad PRN PRN Administration ITCHING Zinc Oxide 113 gm 04/06/22 09:26 04/24/22 16:53 Cod Liver Oil/Zinc Oxide 113 Gm Tube TOP 1 applic PRN PRN Administration Skin Care - Lab Result Fish Bone Diagrams: 05/04/22 06:04 05/03/22 05:46 Subjective - Subjective Patient Reports: No Complaints Objective Vital Signs: Vital Signs - 24 hr 05/03/22 05/03/22 05/04/22 16:00 23:43 08:05 Temperature 36.2 C L 37.0 C 36.3 C L Heart Rate [ 83 81 85 Brachial] Respiratory 16 16 18 Rate Blood Pressure 100/61 106/48 L 94/51 L [Right Brachial artery] O2 Saturation 97 98 97 05/04/22 13:22 Temperature Heart Rate [ Brachial] Respiratory Rate Blood Pressure 101/61 [Right Brachial artery] O2 Saturation Oxygen O2 Source Room air I&O (Last 24 Hrs): Intake and Output Totals x24h 05/02/22 05/03/22 05/04/22 23:59 23:59 23:59 Intake Total 7382 0115 4460 Output Total 6216 72750 4081 Balance -0148 -4689 -1766 General: Alert, Oriented x3 HEENT: Mucous membr. moist/pink, Other (L eye patched) Neck: Supple Neuro: Alert, Non Focal Cardiovascular: Regular rate Respiratory: No respiratory distress Abdomen: Soft Extremities: No clubbing, No edema - Results Results: Laboratory Results WBC 2.0 x10^3/uL (4.8-10.8) L* 05/04/22 06:04 RBC 2.38 10^6/uL (4.70-6.10) L 05/04/22 06:04 Hgb 7.6 g/dL (14.0-18.0) L 05/04/22 06:04 Hct 23.1 % (42.0-52.0) L 05/04/22 06:04 MCV 97.1 fL (80.0-94.0) H 05/04/22 06:04 MCH 31.9 pg (27.0-31.0) H 05/04/22 06:04 MCHC 32.9 g/dL (32.0-36.0) 05/04/22 06:04 RDW 18.5 % (12.0-15.0) H 05/04/22 06:04 Plt Count 75 10^3/uL (130-450) L 05/04/22 06:04 MPV 10.0 fL (7.4-11.4) 05/04/22 06:04 Neut # (Auto) Not Reportable 05/04/22 06:04 Lymph # (Auto) Not Reportable 05/04/22 06:04 Barry # (Auto) Not Reportable 05/04/22 06:04 Eos # (Auto) Not Reportable 05/04/22 06:04 Baso # (Auto) Not Reportable 05/04/22 06:04 Absolute Nucleated RBC Not Reportable 05/04/22 06:04 Total Counted 100 05/04/22 06:04 Band Neuts % (Manual) 0 % (0-10) 05/04/22 06:04 Reactive Lymphs % (Man) 4 % 04/18/22 06:50 Abnorm Lymph % (Manual) 0 % 05/04/22 06:04 Metamyelocytes % 2 % (-0) H 04/19/22 06:35 Myelocytes % 1 % (-0) H 05/03/22 05:46 Nucleated RBC % Not Reportable 05/04/22 06:04 Neutrophils # (Manual) 1.2 10^3/uL (1.5-6.6) L 05/04/22 06:04 Lymphocytes # (Manual) 0.5 10^3/uL (1.5-3.5) L 05/04/22 06:04 Monocytes # (Manual) 0.2 10^3/uL (0.0-1.0) 05/04/22 06:04 Eosinophils # (Manual) 0.0 10^3/uL (0-0.7) 05/04/22 06:04 Basophils # (Manual) 0.0 10^3/uL (0-0.1) 05/04/22 06:04 Nucleated RBCs 1 % 04/30/22 08:30 Differential Comment MANUAL DIFFERENTIAL 05/04/22 06:04 Manual Slide Review Indicated 04/30/22 08:30 WBC Morphology NORMAL APPEARANCE (NORMAL) 05/04/22 06:04 Platelet Estimate DECREASED (<130,000) (NORMAL) 05/04/22 06:04 Platelet Morphology NORMAL APPEARANCE (NORMAL) 05/04/22 06:04 RBC Morph Micro Appear 2+ ANISOCYTOSIS (NORMAL) 1+ POLYCHROMASIA (NORMAL) 05/04/22 06:04 RBC Morph Micro Appear 2+ ANISOCYTOSIS (NORMAL) 1+ POLYCHROMASIA (NORMAL) 05/04/22 06:04 PT 12.8 secs (9.9-12.6) H 04/02/22 05:49 INR 1.2 (0.8-1.2) 04/02/22 05:49 Sodium 136 mmol/L (135-145) 05/03/22 05:46 Potassium 4.0 mmol/L (3.5-5.0) 05/03/22 05:46 Chloride 99 mmol/L (101-111) L 05/03/22 05:46 Carbon Dioxide 29 mmol/L (21-32) 05/03/22 05:46 Anion Gap 8.0 (6-13) 05/03/22 05:46 BUN 17 mg/dL (6-20) 05/03/22 05:46 Creatinine 0.9 mg/dL (0.6-1.2) 05/03/22 05:46 Estimated GFR (MDRD) 83 (>89) L 05/03/22 05:46 Glucose 96 mg/dL (70-100) 05/03/22 05:46 POC Whole Bld Glucose 107 mg/dL (70 - 100) H 04/29/22 11:48 Calcium 9.1 mg/dL (8.5-10.3) 05/03/22 05:46 Phosphorus 3.2 mg/dL (2.5-4.6) 04/22/22 05:20 Magnesium 1.9 mg/dL (1.7-2.8) 04/23/22 05:09 Total Bilirubin 0.4 mg/dL (0.2-1.0) 04/22/22 05:20 AST 17 IU/L (10-42) 04/22/22 05:20 ALT 20 IU/L (10-60) 04/22/22 05:20 Alkaline Phosphatase 59 IU/L (42-121) 04/22/22 05:20 Total Protein 3.9 g/dL (6.7-8.2) L 04/22/22 05:20 Albumin 1.7 g/dL (3.2-5.5) L 04/22/22 05:20 Globulin 2.2 g/dL (2.1-4.2) 04/22/22 05:20 Albumin/Globulin Ratio 0.8 (1.0-2.2) L 04/22/22 05:20 Prealbumin 13 mg/dL (18-45) L 04/22/22 05:20 Triglycerides 88 mg/dL (-149) 04/22/22 05:20 Lipase 21 U/L (22-51) L 04/02/22 05:49 Urine Color RED/BLOODY 04/02/22 11:40 Urine Clarity TURBID (CLEAR) 04/02/22 11:40 Urine pH 6.0 PH (5.0-7.5) 04/02/22 11:40 Ur Specific [place] 1.025 (1.002-1.030) 04/02/22 11:40 Urine Protein >=300 mg/dL (NEGATIVE) H 04/02/22 11:40 Urine Glucose (UA) NEGATIVE mg/dL (NEGATIVE) 04/02/22 11:40 Urine Ketones NEGATIVE mg/dL (NEGATIVE) 04/02/22 11:40 Urine Occult Blood LARGE (NEGATIVE) H 04/02/22 11:40 Urine Nitrite NEGATIVE (NEGATIVE) 04/02/22 11:40 Urine Bilirubin NEGATIVE (NEGATIVE) 04/02/22 11:40 Urine Urobilinogen 0.2 (NORMAL) E.U./dL (NORMAL) 04/02/22 11:40 Ur Leukocyte Esterase NEGATIVE (NEGATIVE) 04/02/22 11:40 Urine RBC TNTC /HPF (0-5) H 04/02/22 11:40 Urine WBC 6-10 /HPF (0-3) H 04/02/22 11:40 Ur Squamous Epith Cells NONE SEEN (<= Few) 04/02/22 11:40 Urine Bacteria None Seen /HPF (None Seen) 04/02/22 11:40 Urine Yeast PRESENT 04/02/22 11:40 Ur Microscopic Review INDICATED 04/02/22 11:40 Urine Culture Comments NOT INDICATED 04/02/22 11:40 Stl C. diff Tox B Gene POSITIVE (NEGATIVE) A* 04/05/22 13:50 SARS-CoV-2 (PCR) DETECTED A 04/12/22 15:45 Blood Type AB POSITIVE 05/03/22 08:41 Antibody Screen NEGATIVE 04/28/22 08:25 Crossmatch IS Only See Detail 04/28/22 08:25 - Procedures Procedures: Procedures TRANSFUSE NONAUT PLATELETS IN PERIPH VEIN, PERC (06/24/21)
[2022-05-04] MEDS: CARBOXYMETHYLCELLULOSE OPHTH DROPS EACHEYE PRN ×2 (16:09→21:36)
[2022-05-04] MEDS: SODIUM CHLORIDE 0.65% NASAL SPRAY NAS PRN (16:19)
[2022-05-04] MEDS: ATORVASTATIN 10 MG TABLET PO SCH (21:36)
[2022-05-05] MEDS: SODIUM CHLORIDE FLUSH 0.9% 10 ML SYRINGE IVP SCH ×3 (01:37→21:03)
[2022-05-05] MEDS: HYDROmorphone 2 MG TABLET PO PRN ×2 (01:37→05:58)
[2022-05-05] MEDS: ACETAMINOPHEN 325 MG TABLET PO PRN ×4 (01:38→21:06)
[2022-05-05] MEDS: oxyCODONE 5 MG TABLET PO PRN ×2 (03:18→08:31)
[2022-05-05] MEDS: CARBOXYMETHYLCELLULOSE OPHTH DROPS EACHEYE PRN ×2 (03:21→21:03)
[2022-05-05] MEDS: PANTOPRAZOLE 40 MG TABLET PO SCH (05:58)
[2022-05-05 06:14] LABS: BASOPHILS % (AUTO) 0.4 %; EOSINOPHILS % (AUTO) 0.4 %; HCT - HEMATOCRIT 23.1 % (42.0-52.0); HGB - HEMOGLOBIN 7.4 g/dL (14.0-18.0); LYMPHOCYTES % (AUTO) 21.2 %; MEAN CORPUSCULAR HEMOGLOBIN 31.2 pg (27.0-31.0); MEAN CORPUSCULAR VOLUME 97.5 fL (80.0-94.0); MEAN PLATELET VOLUME 10.1 fL (7.4-11.4); NEUTROPHILS % (AUTO) 66.2 %; PLT - PLATELET COUNT 62 10^3/uL (130-450); RED BLOOD COUNT 2.37 10^6/uL (4.70-6.10); RED CELL DISTRIBUTION WIDTH 18.6 % (12.0-15.0); WHITE BLOOD COUNT 2.6 x10^3/uL (4.8-10.8)
[2022-05-05 06:16] LABS: ABNORMAL LYMPHS % (MANUAL) 0 %
[2022-05-05 06:22] LABS: CREATININE 0.9 mg/dL (0.6-1.2); POTASSIUM 4.2 mmol/L (3.5-5.0)
[2022-05-05 06:28] LABS: BAND NEUTROPHILS % (MANUAL) 1 %; LYMPHOCYTES # (MANUAL) 0.6 10^3/uL (1.5-3.5); LYMPHOCYTES % (MANUAL) 22 %; MONOCYTES # (MANUAL) 0.3 10^3/uL (0.0-1.0); NEUTROPHILS # (MANUAL) 1.7 10^3/uL (1.5-6.6)
[2022-05-05 06:30] LABS: DIFFERENTIAL COMMENT MANUAL DIFFERENTIAL; PLATELET ESTIMATE, MANUAL DECREASED (<130,000) (NORMAL); PLATELET MORPHOLOGY NORMAL APPEARANCE (NORMAL); RBC MORPHOLOGY (MULTIPLE) 2+ ANISOCYTOSIS (NORMAL); WBC MORPHOLOGY (MULTIPLE) NORMAL APPEARANCE (NORMAL)
[2022-05-05] MEDS: FERROUS GLUCONATE 324 MG TABLET PO SCH (08:31)
[2022-05-05] MEDS: CALCIUM CARB (OYSTER SHELL) 500 MG TABLET PO SCH (08:31)
[2022-05-05] MEDS: TAMSULOSIN 0.4 MG CAPSULE PO SCH (08:31)
[2022-05-05] MEDS: MULTIVITAMIN W/MINERALS TABLET PO SCH (08:31)
[2022-05-05] MEDS: predniSONE 20 MG TABLET PO SCH (08:32)
[2022-05-05] MEDS: AMIODARONE 200 MG TABLET PO SCH (08:32)
[2022-05-05] MEDS: CHOLECALCIFEROL 25 MCG TABLET PO SCH (08:32)
[2022-05-05] MEDS: OFLOXACIN 0.3% OPHTH DROPS LEFTEYE SCH (08:34)
[2022-05-05] MEDS: LIDOCAINE OINTMENT 5% 35.44 GM TUBE TOP SCH ×4 (08:34→21:04)
[2022-05-05] MEDS: FLUTICASONE NASAL SPRAY NAS SCH (08:34)
[2022-05-05] MEDS: prednisoLONE 1% OPHTH DROPS 75 DROPS/5 ML BOTTLE LEFTEYE SCH (08:34)
[2022-05-05] MEDS: ZINC OXIDE 20% OINT 30 GM TUBE TOP PRN (08:35)
--- NOTE | 2022-05-05 14:48 | PROVIDER PROGRESS NOTE ---
Assessment/Plan - Problem List (1) Pancytopenia Assessment/Plan: He has received 9 units of red packed cells, 1 unit of FFP, 9 units of irradiated leukocyte reduced platelets. Last platelets transfused today 05/03. Last packed cells transfused April 29. 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 He was accepted in transfer by and we have called daily for close to 2 weeks and no beds available. Our plan was: Transfusion of packed red cells when hemoglobin less than 7 Transfusion of platelets when platelets less than 70 Plan: The last Hospitalist had spoken to Dr. Torres on the bone marrow transplant team 04/30 and then tentatively started making plans for discharging this patient and trying to manage his anemia in the outpatient setting. He is going to need regular blood transfusions. We hope that he would then coordinate between [facility] oncology and bone marrow transplant team to figure out what was wrong with him. But with 05/01 severe bladder hemorrhage restarting, we slowed moving forward with that. He also needs input from Urology, and we have no urology here. The last recommendation from bone marrow transplant was to increase his platelets to about 70, which may help all the bleeding stop. That would be the time to discharge him. I have asked our roofing machine tender to start setting up a schedule for every 3 day blood and platelet transfusions to be done at the [facility], under the order of Dr. Danyelle Ortiz. After discharge from here, he will be going to [facility] for PT and OT rehab, therefore [facility] clinic is in close proximity to [facility]. All labs were reviewed. His platelet count is under 65 today so we will order 1 unit platelets irradiated to be transfused. 2. Nausea This morning he refused to work with PT (after walking 120 ft yesterday with PT) , and said it was because of severe nausea. Perhaps it is because he is now constipated, no BM for 4 days. Plan: prn Zofran available by the time I informed his RN, he refused the Zofran and said it was because the nausea had resolved. 3. Acute hemorrhagic cystitis Improved This was original reason for admission, which then improved after CBI. Then this problem recurred on 04/28 and he had a re-inserted Juarez because of clots causing obstruction on 04/30, and again has been getting CBI. Urology input would be helpful. When all of this began, the emergency room doctor spoke to a Urologist at the [facility] on 04/02, that was familiar with this patient The last clots in Juarez bag were seen at [facility] 05/04, so over 24 hrs ago. Plan: Will D/C Juarez and CBI today, since last clots were seen > 24 hrs ago. It is hoped that he will see Urology in the outpatient setting, soon after [facility]. I asked our [facility] RN to get him an appt Improved and chronic/stable problems: 4. Diverticular hemorrhage Assessment/Plan: Resolved Presented as hematochezia on admission 04/02 w diarrhea for a while before admisison. Had C. difficile colitis. Was treated with po Vanco. Then he had even more hematochezia and CT confirmed focal segmental diverticulitis. We had just started him on budesonide as requested by Dr. Maradiaga on the bone marrow team, when the diverticulitis was diagnosed, so we stopped steroids and started him on single agent Zosyn. He has needed blood transfusions q1-3 days, while having bloody BMs. Zosyn was started April 16, and stopped April 29. 5. Nose bleed Resolved This started 04/25. He says he has had it at home. He applied pressure and has been holding tissues in his nostrils as well as ice packs placed by the nurse. Trace blood when he blows his nose now. But nothing severe. Plan: Continue with topical management We will consider a nasal pack by the ER doctor if needed 6. Anasarca Resolved This started slowly after he was put on TPN to get calories, then he gained 20 pounds since that time. Lasix 20 mg IV daily had been given for 3 days with significant decrease in leg edema and even skin wrinkling seen on thighs. With today's exam, I am really not seeing any more edema at all. Weight on April 25 was 68 kg. Weight recently is 65.5 kg. Plan: IV lasix has been stopped and has been on po lasix since 04/25 7. Leukopenia Chronic. 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 Treated and cured. History of myelodysplastic syndrome and he had a bone marrow transplant in 2020. As of April 11, Oncology concluded that he would benefit from higher level of care transfer. We called several facilities. [facility] excepted him. Dr Amador Brooks has been the physician accepting him. We have been waiting for bed assignment at from bed control. 8. Sacral decubitus ulcer Improved It is located more on the right buttock. Stage II. Getting Desitin, offloading, And we are making an effort to improve his nutrition In looking at his wound 04/29, it is definitely improved from admission. The wound is now dry. Granulating well. This is over his right upper buttock and sacrum. His testicles had been edematous, and red. That is resolved. 9. Severe protein calorie malnutrition Improved TPN infused for about 2 weeks. TPN was stopped the evening of April 25. It has been interesting that this patient has been borderline hypoglycemic his entire admission. Even when TPN was infusing. He is trying to work with nutrition services. He does not like clear protein boost. He tells me it tastes terrible. I am trying to encourage him to at least drink that on ice to improve his protein status. We stopped Accu-Cheks on April 29. We added ferrous gluconate April 29. He ate breakfast lunch and dinner on the . He did eat dinner on the but no other meals. He refused breakfast today. 10. Chronic diastolic heart failure Improved He developed anasarca from TPN. Lasix started iv then po Plan: Since TPN is stopping, Lasix is going to 20 mg just on Monday and stopping bafter a week. Apr 29 was the last Lasix day. 11. Orthostatic hypotension Improved He is now on his regular prednisone of 10 mg [address] day per Dr. Maradiaga's recommendation. Prior to that, due to low blood pressure at admission, he was on stress dose steroids for several days. Blood pressure is relatively stable since April 08. 12. Paroxysmal A-fib HR is stable. He is no longer on anticoagulation because of so much bleeding 13. History of DVT and PE. Not on anticoagulation. He may need a [place] filter but we do not do that here 14. Chronic kidney disease stable Improved Labs all reviewed. Renal labs have been stable. 15. COVID-positive Asymptomatic. 16. Anal lesion. Benign pathology on biopsy on this admission 17. C. difficile colitis Resolved Completed 11 days of oral vancomycin on April 15. - Current Meds Current Meds: Current Medications Generic Name Dose Route Start Last Admin Trade Name Freq PRN Reason Stop Dose Admin Acetaminophen 650 mg 04/02/22 16:39 05/05/22 10:47 Acetaminophen 325 Mg Tablet PO 650 mg Q4HR PRN Administration Pain 1 to 4, or Fever Amiodarone HCl 100 mg 04/08/22 09:00 05/05/22 08:32 Amiodarone 200 Mg Tablet PO 100 mg DAILY JUJU Administration Atorvastatin Calcium 10 mg 04/04/22 21:00 05/04/22 21:36 Atorvastatin 10 Mg Tablet PO 10 mg 2100 [facility] Administration Calcium Carbonate/Glycine 500 mg 04/04/22 09:00 05/05/22 08:31 Calcium Carb (Oyster Shell) 500 Mg Tablet PO 500 mg 0900 [facility] Administration Calcium Carbonate/Glycine 500 mg 04/04/22 18:17 04/15/22 21:08 Calcium Carbonate Chew 500 Mg Tablet PO 500 mg TID PRN Administration INDIGESTION Carboxymethylcellulose 1 drops 04/28/22 06:15 05/05/22 03:21 Carboxymethylcellulose Ophth Drops EACHEYE 1 drops Q2HR PRN Administration Dry Eye Cholecalciferol 50 mcg 04/04/22 17:00 05/05/22 08:32 Cholecalciferol 25 Mcg Tablet PO 50 mcg DAILY JUJU Administration Ferrous Gluconate 324 mg 04/30/22 08:00 05/05/22 08:31 Ferrous Gluconate 324 Mg Tablet PO 324 mg DAILYWM JUJU Administration Fluticasone Propionate 1 sprays 04/05/22 09:00 05/05/22 08:34 Fluticasone Nasal [place] SHENA 1 spr DAILY [facility] Administration Furosemide 20 mg 04/27/22 13:00 05/04/22 13:22 Furosemide 20 Mg Tablet PO Not Given MOWEFR [facility] Heparin Sodium (Beef Lung) 30 - 50 unit 04/03/22 16:08 05/04/22 09:12 Heparin Flush 50 Units/5 Ml Syringe IVP 30 unit PRN PRN Administration Port Protocol (<24 hours) Hydromorphone HCl 4 mg 04/19/22 00:06 05/05/22 05:58 Hydromorphone 2 Mg Tablet PO 4 mg Q4HR PRN Administration Severe Pain Hydromorphone HCl 2 mg 05/01/22 10:44 05/02/22 10:46 Hydromorphone 2 Mg/Ml Vial IVP 2 mg Q2H PRN Administration PAIN Lidocaine 1 applic 04/15/22 13:00 05/05/22 08:34 Lidocaine Ointment 5% 35.44 Gm Tube TOP 1 applic QID JUJU Administration Multi-Ingredient Ointment 1 applic 04/04/22 10:11 05/05/22 08:35 Zinc Oxide 20% Oint 30 Gm Tube TOP 1 applic PRN PRN Administration Skin Care Multivitamins/Minerals 1 tab 04/29/22 09:00 05/05/22 08:31 Multivitamin W/Minerals Tablet PO 1 tab DAILYWM JUJU Administration Ofloxacin 1 drops 04/04/22 09:00 05/05/22 08:34 Ofloxacin 0.3% Ophth Drops LEFTEYE 1 drops DAILY JUJU Administration Ondansetron HCl 4 mg 04/02/22 16:39 04/05/22 02:20 Ondansetron 4 Mg/2 Ml Vial IVP 4 mg Q6HR PRN Administration Nausea / Vomiting Oxycodone HCl 5 mg 04/05/22 08:52 05/05/22 08:31 Oxycodone 5 Mg Tablet PO 5 mg Q6HR PRN Administration Pain 5 to 7 Pantoprazole Sodium 40 mg 04/04/22 19:00 05/05/22 05:58 Pantoprazole 40 Mg Tablet PO 40 mg QDAC JUJU Administration Prednisolone 1 drops 04/04/22 09:00 05/05/22 08:34 Prednisolone 1% Ophth Drops 75 Drops/5 Ml Bottle LEFTEYE 1 drops DAILY JUJU Administration Prednisone 10 mg 04/16/22 08:00 05/05/22 08:32 Prednisone 20 Mg Tablet PO 10 mg DAILYWM JUJU Administration Sodium Chloride 10 ml 04/02/22 16:39 05/02/22 10:45 Sodium Chloride Flush 0.9% 10 Ml Syringe IVP 20 ml PRN PRN Administration NEEDED PER PROVIDER ORDERS Sodium Chloride 10 ml 04/02/22 17:00 05/05/22 08:32 Sodium Chloride Flush 0.9% 10 Ml Syringe IVP 10 ml 0100,0900,1700 JUJU Administration Sodium Chloride 2 sprays 04/30/22 07:37 05/04/22 16:19 Sodium Chloride 0.65% Nasal [place] SHENA 1 spr Q4HR PRN Administration Nasal Congestion Tamsulosin HCl 0.4 mg 04/08/22 08:02 05/05/22 08:31 Tamsulosin 0.4 Mg Capsule PO 0.4 mg DAILY JUJU Administration Throat Lozenges 1 lozenge 04/19/22 02:53 04/29/22 06:03 Benzocaine/Menthol Lozenge MM 1 lozenge Q2HR PRN Administration Throat pain Witch Kasey/Glycerin 1 pad 04/03/22 15:28 04/21/22 05:19 [place]/Glycerin 1 Pad TOP 1 pad PRN PRN Administration ITCHING Zinc Oxide 113 gm 04/06/22 09:26 04/24/22 16:53 Cod Liver Oil/Zinc Oxide 113 Gm Tube TOP 1 applic PRN PRN Administration Skin Care - Lab Result Fish Bone Diagrams: 05/05/22 06:01 05/05/22 06:01 - Additional Planning My Orders: My Active Orders 05/05/22 07:56 Transfuse Platelet Pheresis Pk [RC] .ONCE Subjective - Subjective Patient Reports: Resting Comfortably Objective Vital Signs: Vital Signs - 24 hr 05/04/22 05/05/22 05/05/22 15:39 05:58 08:31 Temperature 36.9 C 36.9 C 36.8 C Heart Rate [ 87 77 Brachial] Heart Rate [ 80 Radial] Respiratory 16 16 16 Rate Blood Pressure 103/60 100/50 L 103/58 L [Right Brachial artery] O2 Saturation 100 98 96 Oxygen O2 Source Room air I&O (Last 24 Hrs): Intake and Output Totals x24h 05/03/22 05/04/22 05/05/22 23:59 23:59 23:59 Intake Total 7205 7510 2688 Output Total 18903 9850 4000 Balance -8818 -1030 -1312 General: Alert, Oriented x3 HEENT: Mucous membr. moist/pink, Other (L eye patched) Neuro: Alert, Non Focal Cardiovascular: Regular rate Respiratory: No respiratory distress Abdomen: Soft Extremities: No edema - Results Results: Laboratory Results WBC 2.6 x10^3/uL (4.8-10.8) L 05/05/22 06:01 RBC 2.37 10^6/uL (4.70-6.10) L 05/05/22 06:01 Hgb 7.4 g/dL (14.0-18.0) L 05/05/22 06:01 Hct 23.1 % (42.0-52.0) L 05/05/22 06:01 MCV 97.5 fL (80.0-94.0) H 05/05/22 06:01 MCH 31.2 pg (27.0-31.0) H 05/05/22 06:01 MCHC 32.0 g/dL (32.0-36.0) 05/05/22 06:01 RDW 18.6 % (12.0-15.0) H 05/05/22 06:01 Plt Count 62 10^3/uL (130-450) L 05/05/22 06:01 MPV 10.1 fL (7.4-11.4) 05/05/22 06:01 Neut # (Auto) Not Reportable 05/05/22 06:01 Lymph # (Auto) Not Reportable 05/05/22 06:01 [place] # (Auto) Not Reportable 05/05/22 06:01 Eos # (Auto) Not Reportable 05/05/22 06:01 Baso # (Auto) Not Reportable 05/05/22 06:01 Absolute Nucleated RBC Not Reportable 05/05/22 06:01 Total Counted 100 05/05/22 06:01 Band Neuts % (Manual) 1 % (0-10) 05/05/22 06:01 Reactive Lymphs % (Man) 4 % 04/18/22 06:50 Abnorm Lymph % (Manual) 0 % 05/05/22 06:01 Metamyelocytes % 2 % (-0) H 04/19/22 06:35 Myelocytes % 1 % (-0) H 05/03/22 05:46 Nucleated RBC % Not Reportable 05/05/22 06:01 Neutrophils # (Manual) 1.7 10^3/uL (1.5-6.6) 05/05/22 06:01 Lymphocytes # (Manual) 0.6 10^3/uL (1.5-3.5) L 05/05/22 06:01 Monocytes # (Manual) 0.3 10^3/uL (0.0-1.0) 05/05/22 06:01 Eosinophils # (Manual) 0.0 10^3/uL (0-0.7) 05/05/22 06:01 Basophils # (Manual) 0.0 10^3/uL (0-0.1) 05/05/22 06:01 Nucleated RBCs 1 % 04/30/22 08:30 Differential Comment MANUAL DIFFERENTIAL 05/05/22 06:01 Manual Slide Review Indicated 04/30/22 08:30 WBC Morphology NORMAL APPEARANCE (NORMAL) 05/05/22 06:01 Platelet Estimate DECREASED (<130,000) (NORMAL) 05/05/22 06:01 Platelet Morphology NORMAL APPEARANCE (NORMAL) 05/05/22 06:01 RBC Morph Micro Appear 2+ ANISOCYTOSIS (NORMAL) 05/05/22 06:01 PT 12.8 secs (9.9-12.6) H 04/02/22 05:49 INR 1.2 (0.8-1.2) 04/02/22 05:49 Sodium 135 mmol/L (135-145) 05/05/22 06:01 Potassium 4.2 mmol/L (3.5-5.0) 05/05/22 06:01 Chloride 99 mmol/L (101-111) L 05/05/22 06:01 Carbon Dioxide 28 mmol/L (21-32) 05/05/22 06:01 Anion Gap 8.0 (6-13) 05/05/22 06:01 BUN 19 mg/dL (6-20) 05/05/22 06:01 Creatinine 0.9 mg/dL (0.6-1.2) 05/05/22 06:01 Estimated GFR (MDRD) 83 (>89) L 05/05/22 06:01 Glucose 107 mg/dL (70-100) H 05/05/22 06:01 POC Whole Bld Glucose 107 mg/dL (70 - 100) H 04/29/22 11:48 Calcium 9.0 mg/dL (8.5-10.3) 05/05/22 06:01 Phosphorus 3.2 mg/dL (2.5-4.6) 04/22/22 05:20 Magnesium 1.9 mg/dL (1.7-2.8) 04/23/22 05:09 Total Bilirubin 0.4 mg/dL (0.2-1.0) 04/22/22 05:20 AST 17 IU/L (10-42) 04/22/22 05:20 ALT 20 IU/L (10-60) 04/22/22 05:20 Alkaline Phosphatase 59 IU/L (42-121) 04/22/22 05:20 Total Protein 3.9 g/dL (6.7-8.2) L 04/22/22 05:20 Albumin 1.7 g/dL (3.2-5.5) L 04/22/22 05:20 Globulin 2.2 g/dL (2.1-4.2) 04/22/22 05:20 Albumin/Globulin Ratio 0.8 (1.0-2.2) L 04/22/22 05:20 Prealbumin 13 mg/dL (18-45) L 04/22/22 05:20 Triglycerides 88 mg/dL (-149) 04/22/22 05:20 Lipase 21 U/L (22-51) L 04/02/22 05:49 Urine Color RED/BLOODY 04/02/22 11:40 Urine Clarity TURBID (CLEAR) 04/02/22 11:40 Urine pH 6.0 PH (5.0-7.5) 04/02/22 11:40 Ur Specific [place] 1.025 (1.002-1.030) 04/02/22 11:40 Urine Protein >=300 mg/dL (NEGATIVE) H 04/02/22 11:40 Urine Glucose (UA) NEGATIVE mg/dL (NEGATIVE) 04/02/22 11:40 Urine Ketones NEGATIVE mg/dL (NEGATIVE) 04/02/22 11:40 Urine Occult Blood LARGE (NEGATIVE) H 04/02/22 11:40 Urine Nitrite NEGATIVE (NEGATIVE) 04/02/22 11:40 Urine Bilirubin NEGATIVE (NEGATIVE) 04/02/22 11:40 Urine Urobilinogen 0.2 (NORMAL) E.U./dL (NORMAL) 04/02/22 11:40 Ur Leukocyte Esterase NEGATIVE (NEGATIVE) 04/02/22 11:40 Urine RBC TNTC /HPF (0-5) H 04/02/22 11:40 Urine WBC 6-10 /HPF (0-3) H 04/02/22 11:40 Ur Squamous Epith Cells NONE SEEN (<= Few) 04/02/22 11:40 Urine Bacteria None Seen /HPF (None Seen) 04/02/22 11:40 Urine Yeast PRESENT 04/02/22 11:40 Ur Microscopic Review INDICATED 04/02/22 11:40 Urine Culture Comments NOT INDICATED 04/02/22 11:40 Stl C. diff Tox B Gene POSITIVE (NEGATIVE) A* 04/05/22 13:50 SARS-CoV-2 (PCR) DETECTED A 04/12/22 15:45 Blood Type AB POSITIVE 05/03/22 08:41 Antibody Screen NEGATIVE 04/28/22 08:25 Crossmatch IS Only See Detail 04/28/22 08:25 - Procedures Procedures: Procedures TRANSFUSE NONAUT PLATELETS IN PERIPH VEIN, PERC (06/24/21)
[2022-05-05] MEDS: ATORVASTATIN 10 MG TABLET PO SCH (21:03)
[2022-05-06] MEDS: ACETAMINOPHEN 325 MG TABLET PO PRN ×5 (01:26→20:35)
[2022-05-06] MEDS: SODIUM CHLORIDE FLUSH 0.9% 10 ML SYRINGE IVP SCH ×3 (01:27→17:30)
[2022-05-06] MEDS: PANTOPRAZOLE 40 MG TABLET PO SCH (06:53)
[2022-05-06 08:08] LABS: HCT - HEMATOCRIT 22.2 % (42.0-52.0); HGB - HEMOGLOBIN 7.2 g/dL (14.0-18.0); MEAN CORPUSCULAR HEMOGLOBIN 31.6 pg (27.0-31.0); MEAN CORPUSCULAR HGB CONC 32.4 g/dL (32.0-36.0); MEAN CORPUSCULAR VOLUME 97.4 fL (80.0-94.0); MEAN PLATELET VOLUME 9.7 fL (7.4-11.4); RED BLOOD COUNT 2.28 10^6/uL (4.70-6.10); RED CELL DISTRIBUTION WIDTH 18.7 % (12.0-15.0); WHITE BLOOD COUNT 2.5 x10^3/uL (4.8-10.8)
[2022-05-06] MEDS: MULTIVITAMIN W/MINERALS TABLET PO SCH (08:34)
[2022-05-06] MEDS: FERROUS GLUCONATE 324 MG TABLET PO SCH (08:35)
[2022-05-06] MEDS: AMIODARONE 200 MG TABLET PO SCH (08:35)
[2022-05-06] MEDS: CHOLECALCIFEROL 25 MCG TABLET PO SCH (08:35)
[2022-05-06] MEDS: TAMSULOSIN 0.4 MG CAPSULE PO SCH (08:35)
[2022-05-06] MEDS: predniSONE 20 MG TABLET PO SCH (08:35)
[2022-05-06] MEDS: FLUTICASONE NASAL SPRAY NAS SCH (08:36)
[2022-05-06] MEDS: CALCIUM CARB (OYSTER SHELL) 500 MG TABLET PO SCH (08:36)
[2022-05-06] MEDS: OFLOXACIN 0.3% OPHTH DROPS LEFTEYE SCH (08:37)
[2022-05-06] MEDS: LIDOCAINE OINTMENT 5% 35.44 GM TUBE TOP SCH ×4 (08:37→20:36)
[2022-05-06] MEDS: prednisoLONE 1% OPHTH DROPS 75 DROPS/5 ML BOTTLE LEFTEYE SCH (08:37)
--- NOTE | 2022-05-06 11:42 | Discharge Plan ---
"Discharge Plan for SNF / [facility] - Discharge Plan And Transition Orders Problem Reviewed?: Yes Disposition: 03 SNF DC/Xfer Condition: Fair Allergies and Adverse Reactions: Allergies Allergy/AdvReac Type Severity Reaction Status Date / Time No Known Drug Allergies Allergy Verified 04/02/22 05:30 Health Concerns: He was initially hospitalized for C. difficile diarrhea and also hemorrhagic cystitis and anemia, needed po antibiotics and Continuous Bladder Irrigation. He has a baseline pancytopenia which followed a stem cell transplant. He also developed bleeding from diverticulitis. He needed many blood transfusions and platelet transfusions. He had recurrence of the hemorrhagic cystitis and again required CBI. Through this time he has become very deconditioned. He is being discharged to SNF for PT and OT rehab. The plan is to have an appointment with his Heme-Onc, Dr. Ortiz in the [facility] clinic on 05/10/22 to determine an outpatient schedule for getting repeat transfusions of blood and platelets. He also needs to go to a Urology appointment at . Plan of Treatment: As above. Care Goals: Improvement in symptoms, stabilization and strengthening are the goals. Assessment: The patient understands and is agreeable with the plan. - SNF / [facility] Transition Orders Admit to (Facility): [facility] Under the care of (Name): Dr Danyelle Ortiz Discharge Diagnosis: 1. Pancytopenia Has a history of AML, treated and cured. History of myelodysplastic syndrome and he had a stem cell transplant in 2020. 2. Acute hemorrhagic cystitis He needed a Juarez twice and 2 separate courses of CBI. He has a Urologist at [facility]. 3. Diverticular hemorrhage Resolved. 4. Nose bleed Resolved. 5. Sacral decubitus ulcer Improved 6. Severe protein calorie malnutrition 7. Chronic diastolic heart failure 8. Paroxysmal A-fib He is no longer on Eliquis anticoagulation, it is contraindicated because of recurrent severe bleeding. 9. Anal lesion. Benign pathology on a biopsy done during this admission 10. L eye blindness Chronic 11. History of DVT and PE. No longer on anticoagulation. He may need a [place] filter but we [facility] not [facility]. 12. BRANDEN Resolved. 13. Anasarca This was caused by getting iv TPN and resolved with diuresis. 14. C. difficile colitis Resolved. He completed 11 days of oral vancomycin on February 3. 15. Orthostatic hypotension Resolved. Medicare Certification Statement: I certify that [facility] residential care is medically necessary on a continuing basis for any of the conditions for which she/he is receiving care during hospitalization. Notify PCP of admission and forward orders to primary provider for signature. Weight on admission and: Weekly Call PCP immediately if weight increases by: 5 kg Other Notification Orders: Call PCP immediately if patient develops dyspnea, chest pain/tightness or edema. House Bowel Program: Yes Additional Bowel Program Orders: If no BM after 2 days, nurse may give M.O.M. 30ml PO PRN and/or ducolax Supp 1 MS and/or JAMEL 250mg P.O., and/or senna 1-2 tabs PO. On day 3 nurse may give repeat above order until residents constipation is resolved. Annual Influenza Vaccine (between Nov 11 and June 10): Yes Two-step PPD per [facility] [phone] or approved exception documents: Yes Treatments & Other Orders: Daily PT and OT. BID aplications of Desitin ointment and Zinc to buttock, then leave open to air. BID application of Lidocaine gel to hemorhoids, then leave open to air Medication Orders: PLEASE REFER TO THE DISCHARGE MEDICATION LIST. Insulin Orders?: No - Medications New Prescriptions: oxyCODONE [Roxicodone] 5 mg PO Q6HR PRN #20 tab PRN Reason: Pain 5 to 7 Ondansetron Odt [Zofran Odt] 4 mg TL Q6HR PRN #30 tab PRN Reason: Nausea / Vomiting Amiodarone HCl 100 mg PO DAILY #30 tablet predniSONE [Deltasone] 1 tablet PO DAILY #30 tablet Fluticasone [Flonase] 1 sprays SHENA DAILY #1 each Mineral Oil/Petrola Ophth Oint [Lubrifresh Pm Ophth Oint] 1 applic EACHEYE QPM PRN #1 each PRN Reason: Dry Eye Pantoprazole [Protonix] 40 mg PO QDAC #30 tab Multivitamin W/Minerals [Theragran M] 1 tab PO DAILY #30 tab Lidocaine Ointment 5% [Xylocaine Ointment 5%] 1 applic TOP QID #1 each - Diet Type: Geriatric Texture: Regular Liquids: Thin Supplements: 4 oz Ensure daily in a.m. May have monthly special meal: Yes - Therapies | Activity Therapy: Evaluation | Treat if indicated: PT, OT Rehabilitation Potential: Maximize functional status Activity: Activity as Tolerated Weight Bearing: Full Weight Assistance Devices: Walker Follow Up: [facility], Dr Ortiz, appointment on 05/10/22 at 0830. Tentative appt at , Urology Clinic appointment on Monday05/13/22 at 0900."
[2022-05-06] MEDS: FUROSEMIDE 20 MG TABLET PO SCH (12:40)
--- NOTE | 2022-05-06 16:27 | PROVIDER PROGRESS NOTE ---
Assessment/Plan - Problem List (1) Pancytopenia Assessment/Plan: He has received 9 units of red packed cells, 1 unit of FFP, and 10 units of irradiated leukocyte reduced platelets. Last platelets transfused 05/05. Last packed cells transfused April 29. 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 He was accepted in transfer by and we have called daily for close to 2 weeks and no beds available. Our plan was: Transfusion of packed red cells when hemoglobin less than 7 Transfusion of platelets when platelets less than 70 Plan: The last Hospitalist had spoken to Dr. Torres on the bone marrow transplant team 04/30 and then tentatively started making plans for discharging this patient and trying to manage his anemia in the outpatient setting. He is going to need regular blood transfusions. We hope that he would then coordinate between [facility] oncology and bone marrow transplant team to figure out what was wrong with him. But with 05/01 severe bladder hemorrhage restarting, we slowed moving forward with that. He also needs input from Urology, and we have no urology here. The last recommendation from bone marrow transplant was to increase his platelets to about 70, which may help all the bleeding stop. That would be the time to discharge him. I have asked our saloon keeper to arrange a MAC appointment w/ Dr. Danyelle Ortiz re: Pancytopenia. After discharge from here, he will be going to [facility] for PT and OT rehab, therefore [facility] [place] in close proximity to [facility]. All labs were reviewed. His platelet count is >70 and Hgb >7, today so no transfusion today 2. Weakness He has been working with PT and OT. Plan: Discharged to [facility] for PT and OT rehab before returning home. Tentatively planning a discharge tomorrow. 3. Acute hemorrhagic cystitis Improved This was original reason for admission, which then improved after CBI. Then this problem recurred on 04/28 and he had a re-inserted Juarez because of clots causing obstruction on 04/30, and again has been getting CBI. Urology input would be helpful. When all of this began, the emergency room doctor spoke to a Urologist at the [facility] on 04/02, that was familiar with this patient The last clots in Juarez bag were seen at [facility] 05/04, so over 24 hrs ago. Plan: Will D/C Juarez and CBI today, since last clots were seen > 24 hrs ago. It is hoped that he will see Urology in the outpatient setting, soon after [facility]. I asked our [facility] RN to get him an appt 4. Diverticular hemorrhage Assessment/Plan: Resolved Presented as hematochezia on admission 04/02 w diarrhea for a while before admisison. Had C. difficile colitis. Was treated with po Vanco. Then he had even more hematochezia and CT confirmed focal segmental diverticulitis. We had just started him on budesonide as requested by Dr. Maradiaga on the bone marrow team, when the diverticulitis was diagnosed, so we stopped steroids and started him on single agent Zosyn. He has needed blood transfusions q1-3 days, while having bloody BMs. Zosyn was started April 16, and stopped April 29. 5. Nose bleed Resolved This started 04/25. He says he has had it at home. He applied pressure and has been holding tissues in his nostrils as well as ice packs placed by the nurse. Trace blood when he blows his nose now. But nothing severe. Plan: Continue with topical management We will consider a nasal pack by the ER doctor if needed 6. Anasarca Resolved This started slowly after he was put on TPN to get calories, then he gained 20 pounds since that time. Lasix 20 mg IV daily had been given for 3 days with significant decrease in leg edema and even skin wrinkling seen on thighs. With today's exam, I am really not seeing any more edema at all. Weight on April 25 was 68 kg. Weight recently is 65.5 kg. Plan: IV lasix has been stopped and has been on po lasix since 04/25 7. Leukopenia Chronic. 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 Treated and cured. History of myelodysplastic syndrome and he had a bone marrow transplant in 2020. As of April 11, Oncology concluded that he would benefit from higher level of care transfer. We called several facilities. [facility] excepted him. Dr Amador Brooks has been the physician accepting him. We have been waiting for bed assignment at from bed control. 8. Sacral decubitus ulcer Improved It is located more on the right buttock. Stage II. Getting Desitin, offloading, And we are making an effort to improve his nutrition In looking at his wound 04/29, it is definitely improved from admission. The wound is now dry. Granulating well. This is over his right upper buttock and sacrum. His testicles had been edematous, and red. That is resolved. 9. Severe protein calorie malnutrition Improved TPN infused for about 2 weeks. TPN was stopped the evening of April 25. It has been interesting that this patient has been borderline hypoglycemic his entire admission. Even when TPN was infusing. He is trying to work with nutrition services. He does not like clear protein boost. He tells me it tastes terrible. I am trying to encourage him to at least drink that on ice to improve his protein status. We stopped Accu-Cheks on April 29. We added ferrous gluconate April 29. He ate breakfast lunch and dinner on the . He did eat dinner on the but no other meals. He refused breakfast today. 10. Chronic diastolic heart failure Improved He developed anasarca from TPN. Lasix started iv then po Plan: Since TPN is stopping, Lasix is going to 20 mg just on Monday and stopping bafter a week. Apr 29 was the last Lasix day. 11. Orthostatic hypotension Improved He is now on his regular prednisone of [address] mg [address] day [address] Dr. Maradiaga's recommendation. Prior to that, due to low blood pressure at admission, he was on stress dose steroids for several days. Blood pressure is relatively stable since April 08. 12. Paroxysmal A-fib HR is stable. He is no longer on anticoagulation because of so much bleeding 13. History of DVT and PE. Not on anticoagulation. He may need a Goran filter but we do not do that here 14. Chronic kidney disease stable Improved Labs all reviewed. Renal labs have been stable. 15. COVID-positive Asymptomatic. 16. Anal lesion. Benign pathology on biopsy on this admission 17. C. difficile colitis Resolved Completed 11 days of oral vancomycin on April 15. - Current Meds Current Meds: Current Medications Generic Name Dose Route Start Last Admin Trade Name Freq PRN Reason Stop Dose Admin Acetaminophen 650 mg 04/02/22 16:39 05/06/22 16:21 Acetaminophen 325 Mg Tablet PO 650 mg Q4HR PRN Administration Pain 1 to 4, or Fever Amiodarone HCl 100 mg 04/08/22 09:00 05/06/22 08:35 Amiodarone 200 Mg Tablet PO 100 mg DAILY JUJU Administration Atorvastatin Calcium 10 mg 04/04/22 21:00 05/05/22 21:03 Atorvastatin 10 Mg Tablet PO 10 mg 2100 JUJU Administration Calcium Carbonate/Glycine 500 mg 04/04/22 09:00 05/06/22 08:36 Calcium Carb (Oyster Shell) 500 Mg Tablet PO 500 mg 0900 JUJU Administration Calcium Carbonate/Glycine 500 mg 04/04/22 18:17 04/15/22 21:08 Calcium Carbonate Chew 500 Mg Tablet PO 500 mg TID PRN Administration INDIGESTION Carboxymethylcellulose 1 drops 04/28/22 06:15 05/05/22 21:03 Carboxymethylcellulose Ophth Drops EACHEYE 1 drops Q2HR PRN Administration Dry Eye Cholecalciferol 50 mcg 04/04/22 17:00 05/06/22 08:35 Cholecalciferol 25 Mcg Tablet PO 50 mcg DAILY [facility] Administration Ferrous Gluconate 324 mg 04/30/22 08:00 05/06/22 08:35 Ferrous Gluconate 324 Mg Tablet PO 324 mg DAILYWM [facility] Administration Fluticasone Propionate 1 sprays 04/05/22 09:00 05/06/22 08:36 Fluticasone Nasal [place] SHENA 1 spr DAILY [facility] Administration Furosemide 20 mg 04/27/22 13:00 05/06/22 12:40 Furosemide 20 Mg Tablet PO 20 mg MOWEFR [facility] Administration Heparin Sodium (Beef Lung) 30 - 50 unit 04/03/22 16:08 05/04/22 09:12 Heparin Flush 50 Units/5 Ml Syringe IVP 30 unit PRN PRN Administration Port Protocol (<24 hours) Hydromorphone HCl 4 mg 04/19/22 00:06 05/05/22 05:58 Hydromorphone 2 Mg Tablet PO 4 mg Q4HR PRN Administration Severe Pain Hydromorphone HCl 2 mg 05/01/22 10:44 05/02/22 10:46 Hydromorphone 2 Mg/Ml Vial IVP 2 mg Q2H PRN Administration PAIN Lidocaine 1 applic 04/15/22 13:00 05/06/22 13:51 Lidocaine Ointment 5% 35.44 Gm Tube TOP Not Given QID JUJU Multi-Ingredient Ointment 1 applic 04/04/22 10:11 05/05/22 08:35 Zinc Oxide 20% Oint 30 Gm Tube TOP 1 applic PRN PRN Administration Skin Care Multivitamins/Minerals 1 tab 04/29/22 09:00 05/06/22 08:34 Multivitamin W/Minerals Tablet PO 1 tab DAILYWM JUJU Administration Ofloxacin 1 drops 04/04/22 09:00 05/06/22 08:37 Ofloxacin 0.3% Ophth Drops LEFTEYE 1 drops DAILY JUJU Administration Ondansetron HCl 4 mg 04/02/22 16:39 04/05/22 02:20 Ondansetron 4 Mg/2 Ml Vial IVP 4 mg Q6HR PRN Administration Nausea / Vomiting Oxycodone HCl 5 mg 04/05/22 08:52 05/05/22 08:31 Oxycodone 5 Mg Tablet PO 5 mg Q6HR PRN Administration Pain 5 to 7 Pantoprazole Sodium 40 mg 04/04/22 19:00 05/06/22 06:53 Pantoprazole 40 Mg Tablet PO 40 mg QDAC JUJU Administration Prednisolone 1 drops 04/04/22 09:00 05/06/22 08:37 Prednisolone 1% Ophth Drops 75 Drops/5 Ml Bottle LEFTEYE 1 drops DAILY JUJU Administration Prednisone 10 mg 04/16/22 08:00 05/06/22 08:35 Prednisone 20 Mg Tablet PO 10 mg DAILYWM JUJU Administration Sodium Chloride 10 ml 04/02/22 16:39 05/02/22 10:45 Sodium Chloride Flush 0.9% 10 Ml Syringe IVP 20 ml PRN PRN Administration NEEDED PER PROVIDER ORDERS Sodium Chloride 10 ml 04/02/22 17:00 05/06/22 08:38 Sodium Chloride Flush 0.9% 10 Ml Syringe IVP 10 ml 0100,0900,1700 JUJU Administration Sodium Chloride 2 sprays 04/30/22 07:37 05/04/22 16:19 Sodium Chloride 0.65% Nasal [place] SHENA 1 spr Q4HR PRN Administration Nasal Congestion Tamsulosin HCl 0.4 mg 04/08/22 08:02 05/06/22 08:35 Tamsulosin 0.4 Mg Capsule PO 0.4 mg DAILY JUJU Administration Throat Lozenges 1 lozenge 04/19/22 02:53 04/29/22 06:03 Benzocaine/Menthol Lozenge MM 1 lozenge Q2HR PRN Administration Throat pain Witch Kasey/Glycerin 1 pad 04/03/22 15:28 04/21/22 05:19 Witch Kasey/Glycerin 1 Pad TOP 1 pad PRN PRN Administration ITCHING Zinc Oxide 113 gm 04/06/22 09:26 04/24/22 16:53 Cod Liver Oil/Zinc Oxide 113 Gm Tube TOP 1 applic PRN PRN Administration Skin Care - Lab Result Fish Bone Diagrams: 05/07/22 05:20 05/07/22 05:20 - Additional Planning My Orders: My Active Orders 05/07/22 05:00 CBC W/O DIFF (HEMOGRAM) [HEME] DAILYLAB 05/08/22 05:00 CBC W/O DIFF (HEMOGRAM) [HEME] DAILYLAB 05/09/22 05:00 CBC W/O DIFF (HEMOGRAM) [HEME] DAILYLAB Subjective - Subjective Patient Reports: Resting Comfortably, No Complaints (Is nervous about leaving tomorrow, wonders how he will get from [facility] to the [facility] and to urology. His questions were answered.) Objective Vital Signs: Vital Signs - 24 hr 05/05/22 05/05/22 05/06/22 16:41 23:42 07:49 Temperature 36.8 C 37.2 C 36.3 C L Heart Rate [ 82 86 Brachial] Heart Rate [ 79 Radial] Respiratory 13 16 18 Rate Blood Pressure 105/57 L 106/55 L 118/72 [Right Brachial artery] O2 Saturation 97 99 98 05/06/22 15:48 Temperature 36.5 C Heart Rate [ Brachial] Heart Rate [ 79 Radial] Respiratory 16 Rate Blood Pressure 104/49 L [Right Brachial artery] O2 Saturation 100 Oxygen O2 Source Room air I&O (Last 24 Hrs): Intake and Output Totals x24h 05/04/22 05/05/22 05/06/22 23:59 23:59 23:59 Intake Total 7510 3404 560 Output Total 9850 4000 Balance -2340 -596 560 General: Alert, Oriented x3 HEENT: Mucous membr. moist/pink, Other (L eye patched) Neck: Supple Neuro: Alert, Non Focal Cardiovascular: Regular rate Respiratory: No respiratory distress Abdomen: Soft Rectal: Hemorrhoid Extremities: No clubbing, No edema - Results Results: Laboratory Results WBC 2.5 x10^3/uL (4.8-10.8) L 05/06/22 08:00 RBC 2.28 10^6/uL (4.70-6.10) L 05/06/22 08:00 Hgb 7.2 g/dL (14.0-18.0) L 05/06/22 08:00 Hct 22.2 % (42.0-52.0) L 05/06/22 08:00 MCV 97.4 fL (80.0-94.0) H 05/06/22 08:00 MCH 31.6 pg (27.0-31.0) H 05/06/22 08:00 MCHC 32.4 g/dL (32.0-36.0) 05/06/22 08:00 RDW 18.7 % (12.0-15.0) H 05/06/22 08:00 Plt Count 79 10^3/uL (130-450) L 05/06/22 08:00 MPV 9.7 fL (7.4-11.4) 05/06/22 08:00 Neut # (Auto) Not Reportable 05/05/22 06:01 Lymph # (Auto) Not Reportable 05/05/22 06:01 [place] # (Auto) Not Reportable 05/05/22 06:01 Eos # (Auto) Not Reportable 05/05/22 06:01 Baso # (Auto) Not Reportable 05/05/22 06:01 Absolute Nucleated RBC Not Reportable 05/05/22 06:01 Total Counted 100 05/05/22 06:01 Band Neuts % (Manual) 1 % (0-10) 05/05/22 06:01 Reactive Lymphs % (Man) 4 % 04/18/22 06:50 Abnorm Lymph % (Manual) 0 % 05/05/22 06:01 Metamyelocytes % 2 % (-0) H 04/19/22 06:35 Myelocytes % 1 % (-0) H 05/03/22 05:46 Nucleated RBC % Not Reportable 05/05/22 06:01 Neutrophils # (Manual) 1.7 10^3/uL (1.5-6.6) 05/05/22 06:01 Lymphocytes # (Manual) 0.6 10^3/uL (1.5-3.5) L 05/05/22 06:01 Monocytes # (Manual) 0.3 10^3/uL (0.0-1.0) 05/05/22 06:01 Eosinophils # (Manual) 0.0 10^3/uL (0-0.7) 05/05/22 06:01 Basophils # (Manual) 0.0 10^3/uL (0-0.1) 05/05/22 06:01 Nucleated RBCs 1 % 04/30/22 08:30 Differential Comment MANUAL DIFFERENTIAL 05/05/22 06:01 Manual Slide Review Indicated 04/30/22 08:30 WBC Morphology NORMAL APPEARANCE (NORMAL) 05/05/22 06:01 Platelet Estimate DECREASED (<130,000) (NORMAL) 05/05/22 06:01 Platelet Morphology NORMAL APPEARANCE (NORMAL) 05/05/22 06:01 RBC Morph Micro Appear 2+ ANISOCYTOSIS (NORMAL) 05/05/22 06:01 PT 12.8 secs (9.9-12.6) H 04/02/22 05:49 INR 1.2 (0.8-1.2) 04/02/22 05:49 Sodium 135 mmol/L (135-145) 05/05/22 06:01 Potassium 4.2 mmol/L (3.5-5.0) 05/05/22 06:01 Chloride 99 mmol/L (101-111) L 05/05/22 06:01 Carbon Dioxide 28 mmol/L (21-32) 05/05/22 06:01 Anion Gap 8.0 (6-13) 05/05/22 06:01 BUN 19 mg/dL (6-20) 05/05/22 06:01 Creatinine 0.9 mg/dL (0.6-1.2) 05/05/22 06:01 Estimated GFR (MDRD) 83 (>89) L 05/05/22 06:01 Glucose 107 mg/dL (70-100) H 05/05/22 06:01 POC Whole Bld Glucose 107 mg/dL (70 - 100) H 04/29/22 11:48 Calcium 9.0 mg/dL (8.5-10.3) 05/05/22 06:01 Phosphorus 3.2 mg/dL (2.5-4.6) 04/22/22 05:20 Magnesium 1.9 mg/dL (1.7-2.8) 04/23/22 05:09 Total Bilirubin 0.4 mg/dL (0.2-1.0) 04/22/22 05:20 AST 17 IU/L (10-42) 04/22/22 05:20 ALT 20 IU/L (10-60) 04/22/22 05:20 Alkaline Phosphatase 59 IU/L (42-121) 04/22/22 05:20 Total Protein 3.9 g/dL (6.7-8.2) L 04/22/22 05:20 Albumin 1.7 g/dL (3.2-5.5) L 04/22/22 05:20 Globulin 2.2 g/dL (2.1-4.2) 04/22/22 05:20 Albumin/Globulin Ratio 0.8 (1.0-2.2) L 04/22/22 05:20 Prealbumin 13 mg/dL (18-45) L 04/22/22 05:20 Triglycerides 88 mg/dL (-149) 04/22/22 05:20 Lipase 21 U/L (22-51) L 04/02/22 05:49 Urine Color RED/BLOODY 04/02/22 11:40 Urine Clarity TURBID (CLEAR) 04/02/22 11:40 Urine pH 6.0 PH (5.0-7.5) 04/02/22 11:40 Ur Specific [place] 1.025 (1.002-1.030) 04/02/22 11:40 Urine Protein >=300 mg/dL (NEGATIVE) H 04/02/22 11:40 Urine Glucose (UA) NEGATIVE mg/dL (NEGATIVE) 04/02/22 11:40 Urine Ketones NEGATIVE mg/dL (NEGATIVE) 04/02/22 11:40 Urine Occult Blood LARGE (NEGATIVE) H 04/02/22 11:40 Urine Nitrite NEGATIVE (NEGATIVE) 04/02/22 11:40 Urine Bilirubin NEGATIVE (NEGATIVE) 04/02/22 11:40 Urine Urobilinogen 0.2 (NORMAL) E.U./dL (NORMAL) 04/02/22 11:40 Ur Leukocyte Esterase NEGATIVE (NEGATIVE) 04/02/22 11:40 Urine RBC TNTC /HPF (0-5) H 04/02/22 11:40 Urine WBC 6-10 /HPF (0-3) H 04/02/22 11:40 Ur Squamous Epith Cells NONE SEEN (<= Few) 04/02/22 11:40 Urine Bacteria None Seen /HPF (None Seen) 04/02/22 11:40 Urine Yeast PRESENT 04/02/22 11:40 Ur Microscopic Review INDICATED 04/02/22 11:40 Urine Culture Comments NOT INDICATED 04/02/22 11:40 Stl C. diff Tox B Gene POSITIVE (NEGATIVE) A* 04/05/22 13:50 SARS-CoV-2 (PCR) NOT DETECTED 05/06/22 10:22 Blood Type AB POSITIVE 05/03/22 08:41 Antibody Screen NEGATIVE 04/28/22 08:25 Crossmatch IS Only See Detail 04/28/22 08:25 - Procedures Procedures: Procedures TRANSFUSE NONAUT PLATELETS IN PERIPH VEIN, PERC (06/24/21)
[2022-05-06] MEDS: ATORVASTATIN 10 MG TABLET PO SCH (20:35)
[2022-05-07] MEDS: ACETAMINOPHEN 325 MG TABLET PO PRN (00:43)
[2022-05-07] MEDS: SODIUM CHLORIDE FLUSH 0.9% 10 ML SYRINGE IVP SCH ×2 (00:45→08:50)
[2022-05-07] MEDS: ZINC OXIDE 20% OINT 30 GM TUBE TOP PRN ×3 (02:00→08:57)
[2022-05-07] MEDS: CARBOXYMETHYLCELLULOSE OPHTH DROPS EACHEYE PRN ×2 (02:03→04:59)
[2022-05-07] MEDS: LIDOCAINE OINTMENT 5% 35.44 GM TUBE TOP SCH ×4 (02:04→13:24)
[2022-05-07] MEDS: PANTOPRAZOLE 40 MG TABLET PO SCH (04:58)
[2022-05-07 05:34] LABS: HCT - HEMATOCRIT 23.5 % (42.0-52.0); HGB - HEMOGLOBIN 7.5 g/dL (14.0-18.0); MEAN CORPUSCULAR HEMOGLOBIN 31.5 pg (27.0-31.0); MEAN CORPUSCULAR HGB CONC 31.9 g/dL (32.0-36.0); MEAN CORPUSCULAR VOLUME 98.7 fL (80.0-94.0); MEAN PLATELET VOLUME 9.7 fL (7.4-11.4); RED BLOOD COUNT 2.38 10^6/uL (4.70-6.10); RED CELL DISTRIBUTION WIDTH 19.3 % (12.0-15.0); WHITE BLOOD COUNT 6.6 x10^3/uL (4.8-10.8)
[2022-05-07 05:44] LABS: CALCIUM 8.6 mg/dL (8.5-10.3)
[2022-05-07] MEDS: ONDANSETRON 4 MG/2 ML VIAL IVP PRN (08:50)
[2022-05-07] MEDS: FERROUS GLUCONATE 324 MG TABLET PO SCH (08:53)
[2022-05-07] MEDS: MULTIVITAMIN W/MINERALS TABLET PO SCH (08:53)
[2022-05-07] MEDS: TAMSULOSIN 0.4 MG CAPSULE PO SCH (08:53)
[2022-05-07] MEDS: CHOLECALCIFEROL 25 MCG TABLET PO SCH (08:54)
[2022-05-07] MEDS: predniSONE 20 MG TABLET PO SCH (08:54)
[2022-05-07] MEDS: CALCIUM CARB (OYSTER SHELL) 500 MG TABLET PO SCH (08:54)
[2022-05-07] MEDS: AMIODARONE 200 MG TABLET PO SCH (08:54)
[2022-05-07] MEDS: POTASSIUM CHLOR 10 MEQ/100 ML 10 MEQ/100 ML BAG IV SCH ×3 (09:00→11:34)
[2022-05-07] MEDS: FLUTICASONE NASAL SPRAY NAS SCH (09:08)
[2022-05-07] MEDS: prednisoLONE 1% OPHTH DROPS 75 DROPS/5 ML BOTTLE LEFTEYE SCH (09:09)
[2022-05-07] MEDS: OFLOXACIN 0.3% OPHTH DROPS LEFTEYE SCH (09:09)
[2022-05-07 10:11] VITALS: BP 128/48
[2022-05-07] MEDS ORDERED: LORazepam 0.5 MG TABLET PO PRN (11:00)
[2022-05-07] MEDS: SODIUM CHLORIDE FLUSH 0.9% 10 ML SYRINGE IVP PRN (13:43)
--- NOTE | 2022-05-07 15:40 | DISCHARGE SUMMARY ---
Discharge Summary Admit Date: 04/02/22 Discharge Date: 05/07/22 Discharging Provider: Dr Isabell Gonzalez Primary Care Provider: Dr Jorge Castellon Condition at Discharge: Fair Discharge Disposition: 03 SNF DC/Xfer - HPI History of Present Illness: Koko Zheng is an 71 yo male with PMH of AML/MDS status post stem cell transplant, pancytopenia requiring blood transfusions, Afib-flutter, CHF, diffuse alveolar hemorrhage Hx, history of Danitza's granulomatosis, DM, CKD stage III, hematuria from cystitis, L knee infection s/p explant in February 2022. He presented to the ED for rectal bleeding, his chief complaint is his painful hemorrhoids. He is a good historian and has insight into his medical issues but perseverates on his hemroid bleeding and consequent anemia. No bleeding was found in the ED but due to low H&H on labs, a transfusion was planned. Pt re ported that he couldn't urinate. Juarez catheter was placed and gross hematuria was noted. He is being admitted for anemia, hematuria requiring CBI. Interesting gentleman. It seems he does not seem to have a lot of insight about his own body. The fact that he mistook bleeding from his bladder for hemorrhoidal bleeding, has caused the ER providers to delay the diagnosis by an hour or so. He appears hemodynamically stable. Has received 2 units of blood. Plateletpheresis 1 pack. We will check hemoglobin now. Getting continuous bladder irrigation for the next 48 hours. Assume that his cystitis is due to another UTI and he is on Rocephin. He is a Full code. His anticoagulation will be problematic. This gentleman has a history of DVT and a history of atrial fibrillation for which he is on Eliquis. I am holding anticoagulation tonight. We will probably resume Lovenox tomorrow. See how he does over 24 to 48 hours before resuming Eliquis. - HOSPITAL COURSE Hospital Course: 1. Pancytopenia Has a history of AML, treated and cured. History of myelodysplastic syndrome and he had a stem cell transplant in 2020. We learned from his signal circuit designer/oncologist Dr. Danyelle Ortiz, who sees him at [facility], that his new normal is a white blood cell count of about 3, hemoglobin of 7 and platelet count approx 30. His hospitalization was very long because he needed blood transfusion about every 3 days and platelet transfusions nearly every 2 days. The etiology was hemorrhages. He had ongoing blood loss i nitially due to hemorrhagic cystitis needing CBI, plus during C. diff diarrhea, then had hemorrhagic diverticular bleeding, then another recurrence of hemorrhagic cystitis needing CBI. Because of his complex hematologic problems, we tried for 2 weeks to get him transferred to Bone Marrow Transplant Team. He was accepted there, but there were no beds ever open to be available, and he was never transferred. Finally, the new plan was to get the platelet count near 70, in hopes that it would control all his bleeding, which it did. During his entire hospital stay he received 9 units of PRBCs, 1 unit FFP, and 10 units of platelet. For the last several days his platelet count was 71-75 and hemoglobin was 7.2-7.9, thus he was felt stable for discharge. He has an appointment to see Dr. Danyelle Ortiz, in Hematology at [facility] on 05/10/2022 at 0830. 2. Acute hemorrhagic cystitis We called for Urology recommendations. He needed a Juarez twice and 2 separate courses of CBI. He has a Urologist at [facility] who will be seeing him there with an appointment on 05/13/22 at 0900. 3. Diverticular hemorrhage Resolved. 4. Nose bleed Recurrent, chronic problem that resolved. 5. Sacral decubitus ulcer Improved with topical care, a course of TPN for protein and calorie supplementation, and off loading. 6. Severe protein calorie malnutrition This patient was emaciated, had a BMI of 21, initially only ingested Ensure. He got a long course of iv lipids and TPN for protein and calorie supplementation. 7. Weakness Because of a prolonged hospital stay of over 30 days, he had severe deconditioning. There was improvement with PT and he was discharged to a SNF for PT and OT rehab. 8. Chronic diastolic heart failure As per Hx. The long course of IV TPN did give him anasarca, for which she needed IV Lasix for many days, then p.o. Lasix which was eventually tapered to off. 9. Paroxysmal A-fib He is no longer on Eliquis anticoagulation, it is contraindicated because of recurrent severe bleeding. 10. Anal lesion. Benign pathology on a biopsy done during this admission 11. L eye blindness Chronic 12. History of DVT and PE. No longer on anticoagulation. He may need a Palmer filter but we [facility] not do that [facility]. 13. BRANDEN Resolved. 14. Anasarca This was caused by getting iv TPN and resolved with diuresis. 15. C. difficile colitis Resolved. He completed 11 days of oral vancomycin on April 15. 16. Orthostatic hypotension Resolved with med adjustments. - ALLERGIES Allergies/Adverse Reactions: Allergies Allergy/AdvReac Type Severity Reaction Status Date / Time No Known Drug Allergies Allergy Verified 04/02/22 05:30 - MEDICATIONS Home Medications: Ambulatory Orders Medication Instructions Recorded Confirmed Tamsulosin HCl [Flomax] 0.4 mg PO DAILY 03/30/21 04/02/22 Calcium Carbonate/Vitamin D3 1 each PO DAILY 06/15/21 04/02/22 [Calcium 600-Vit D3 200 Tablet] Ofloxacin 0.3% Ophth Drops 1 drops LEFTEYE DAILY 04/02/22 04/02/22 [Ocuflox 0.3% Ophth Drops] prednisoLONE 1% OPHTH DROPS [Pred 1 drops LEFTEYE DAILY 04/02/22 04/02/22 Forte 1% Ophth Drops] Acetaminophen [Tylenol] 650 mg PO Q4HR PRN tab 05/06/22 Amiodarone HCl 100 mg PO DAILY #30 tablet 05/06/22 Fluticasone [Flonase] 1 sprays SHENA DAILY #1 each 05/06/22 Lidocaine Ointment 5% [Xylocaine 1 applic TOP QID #1 each 05/06/22 Ointment 5%] Mineral Oil/Petrola Ophth Oint 1 applic EACHEYE QPM PRN #1 each 05/06/22 [Lubrifresh Pm Ophth Oint] Multivitamin W/Minerals [Theragran 1 tab PO DAILY #30 tab 05/06/22 M] Ondansetron Odt [Zofran Odt] 4 mg TL Q6HR PRN #30 tab 05/06/22 Pantoprazole [Protonix] 40 mg PO QDAC #30 tab 05/06/22 Zinc Oxide 20% Oint [Zinc Oxide] 1 applic TOP PRN PRN each 05/06/22 oxyCODONE [Roxicodone] 5 mg PO Q6HR PRN #20 tab 05/06/22 predniSONE [Deltasone] 1 tablet PO DAILY #30 tablet 05/06/22 ONDANSETRON ODT Prepack 2 [ZOFRAN 4 mg TL Q6H #16 tablet 05/07/22 ODT Prepack 2] - PHYSICAL EXAM AT DISCHARGE General Appearance: positive: No acute distress, Alert Eyes Bilateral: positive: Other (Left eye is patched and he is legally blind on L.) ENT: positive: Other (Tip of his nose has had surgery) Neck: positive: Nml inspection, No JVD Respiratory: positive: No respiratory distress, Breath sounds nml Cardiovascular: positive: Regular rate & rhythm, No murmur Abdomen: positive: Non-tender, Nml bowel sounds, No distention Skin: positive: Warm, Dry Extremities: positive: Non-tender, No pedal edema Neurologic/Psychiatric: positive: Oriented x3, Motor nml - LABS Result Diagrams: 05/07/22 05:20 05/07/22 05:20 - FOLLOW UP Follow Up: Follow-up appointments are as described above. - TIME SPENT Time Spent in Discharge (Minutes): 65
== END 2022-05-07 14:22 | DRG 808 ==
LOC: ED 05:23 → MS2 16:40
PROVIDERS: ADMIT Specialist; ATTEND Internal Medicine
PROC: 30233R1 Transfusion of Nonautologous Platelets into Peripheral Vein, Percutaneous Approach (ICD-10-PCS; 2022-04-02)
PROC: 0DBQXZX Excision of Anus, External Approach, Diagnostic (ICD-10-PCS; principal; 2022-04-07)
PROC: 30233K1 Transfusion of Nonautologous Frozen Plasma into Peripheral Vein, Percutaneous Approach (ICD-10-PCS; 2022-04-10)
DX: R31.0 Gross hematuria (principal); D61.818 Other pancytopenia; D64.9 Anemia, unspecified; E43 Unspecified severe protein-calorie malnutrition; Z20.822 Contact with and (suspected) exposure to COVID-19; I48.91 Unspecified atrial fibrillation; K57.31 Diverticulosis of large intestine without perforation or abscess with bleeding; U07.1 COVID-19; K57.33 Diverticulitis of large intestine without perforation or abscess with bleeding; N30.01 Acute cystitis with hematuria; K64.4 Residual hemorrhoidal skin tags; N17.9 Acute kidney failure, unspecified; A04.72 Enterocolitis due to Clostridium difficile, not specified as recurrent; I48.92 Unspecified atrial flutter; C92.01 Acute myeloblastic leukemia, in remission; I50.32 Chronic diastolic (congestive) heart failure; E27.2 Addisonian crisis; E87.1 Hypo-osmolality and hyponatremia; N13.8 Other obstructive and reflux uropathy; R04.0 Epistaxis; R53.1 Weakness; I95.9 Hypotension, unspecified; Z79.01 Long term (current) use of anticoagulants; E11.22 Type 2 diabetes mellitus with diabetic chronic kidney disease; N18.30 Chronic kidney disease, stage 3 unspecified; Z86.718 Personal history of other venous thrombosis and embolism; I25.10 Atherosclerotic heart disease of native coronary artery without angina pectoris; Z99.3 Dependence on wheelchair; D46.9 Myelodysplastic syndrome, unspecified; K21.9 Gastro-esophageal reflux disease without esophagitis; K64.9 Unspecified hemorrhoids; Z68.21 Body mass index [BMI] 21.0-21.9, adult; I48.0 Paroxysmal atrial fibrillation; K62.9 Disease of anus and rectum, unspecified; Z86.711 Personal history of pulmonary embolism; I95.1 Orthostatic hypotension; R32 Unspecified urinary incontinence; R35.0 Frequency of micturition; E87.6 Hypokalemia; L89.152 Pressure ulcer of sacral region, stage 2; R41.0 Disorientation, unspecified; R33.9 Retention of urine, unspecified; F32.A Depression, unspecified; R63.0 Anorexia; H54.62 Unqualified visual loss, left eye, normal vision right eye; K62.89 Other specified diseases of anus and rectum; E11.65 Type 2 diabetes mellitus with hyperglycemia; R60.0 Localized edema; E11.649 Type 2 diabetes mellitus with hypoglycemia without coma; K59.00 Constipation, unspecified
CPT/HCPCS: 36415; 36430; 51702; 70450; 72193; 74177; 80048; 80053; 81001; 82272; 83690; 83735; 84100; 84134; 84478; 85014; 85018; 85025; 85027; 85049; 85610; 86850; 86900; 86901; 86920; 87493; 87635; 93005; 93306; 96374; 96375; 96376; 97110; 97116; 97162; 97166; 97530; 99285; A9270; J1170; J3480; J3490; J7512; J8499; P9017; P9037; P9040; Q9963; Q9967; 81003; 87086; Q9965

== ENCOUNTER 2022-05-08 22:51 | Outpatient (CLI) | payer MEDICARE, OTHER | END 2022-05-08 23:59 | disposition critical access hospital (66) | LOC: EMS 22:51 | DX: R11.2 Nausea with vomiting, unspecified (principal); R19.7 Diarrhea, unspecified; R53.83 Other fatigue; I95.9 Hypotension, unspecified; R00.0 Tachycardia, unspecified; R50.9 Fever, unspecified | CPT/HCPCS: A0425; A0427 ==

== ENCOUNTER 2022-05-08 22:57 | Inpatient (IN) | payer MEDICARE, OTHER ==
[2022-05-08] MEDS ORDERED: PIPERACILLIN/TAZOBACTAM 3.375 GM in SODIUM CHLORIDE 0.9% MINIBAG 100 ML IV STA (23:14)
[2022-05-08] MEDS ORDERED: SODIUM CHLORIDE 0.9% 2,000 ML IV STA (23:17)
[2022-05-08] MEDS ORDERED: iohexoL-300 100 ML VIAL ONE (23:21)
[2022-05-08] MEDS ORDERED: ACETAMINOPHEN 325 MG TABLET PO STA (23:26)
[2022-05-08 23:29] LABS: BASOPHILS % (AUTO) 0.8 %; EOSINOPHILS % (AUTO) 0.2 %; HCT - HEMATOCRIT 27.8 % (42.0-52.0); HGB - HEMOGLOBIN 8.9 g/dL (14.0-18.0); LYMPHOCYTES % (AUTO) 6.7 %; MEAN CORPUSCULAR HEMOGLOBIN 31.3 pg (27.0-31.0); MEAN CORPUSCULAR VOLUME 97.9 fL (80.0-94.0); MEAN PLATELET VOLUME 10.6 fL (7.4-11.4); NEUTROPHILS % (AUTO) 79.8 %; PLT - PLATELET COUNT 72 10^3/uL (130-450); RED BLOOD COUNT 2.84 10^6/uL (4.70-6.10); RED CELL DISTRIBUTION WIDTH 20.7 % (12.0-15.0); WHITE BLOOD COUNT 5.9 x10^3/uL (4.8-10.8)
[2022-05-08 23:33] LABS: ABNORMAL LYMPHS % (MANUAL) 0 %
--- NOTE | 2022-05-08 23:33 | ED Physician Documentation ---
History of Present Illness - Stated complaint Stated Complaint: N/V/D - Chief complaint Chief Complaint: Abd Pain - History obtained from History obtained from: Patient, EMS - Additonal information Additional information: 71-year-old man with extensive PMH including afib, dvt/pe, MDS/AML with pancytopenia presents as bounceback from SNF. further history limited by patient acuity. see MDM for details. Review of Systems Constitutional: reports: Fever GI: reports: Abdominal Pain PD PAST MEDICAL HISTORY - Past Medical History Cardiovascular: Coronary artery disease, Atrial fibrillation (On chronic anticoagulation) Respiratory: None Neuro: None Endocrine/Autoimmune: None, Other GI: GERD, Hemorrhoids : Incontinence, Chronic bladder infection, Frequency HEENT: Other (cataracts sp cataract surgery ) Psych: None Musculoskeletal: Fatigue, Other Derm: None, Other (paper thin skin loss of sub q tissue ) - Past Surgical History Ortho: Knee replacement HEENT: Cataracts - Present Medications Home Medications: Ambulatory Orders Medication Instructions Recorded Confirmed Tamsulosin HCl [Flomax] 0.4 mg PO DAILY 03/30/21 04/02/22 Calcium Carbonate/Vitamin D3 1 each PO DAILY 06/15/21 04/02/22 [Calcium 600-Vit D3 200 Tablet] Ofloxacin 0.3% Ophth Drops 1 drops LEFTEYE DAILY 04/02/22 04/02/22 [Ocuflox 0.3% Ophth Drops] prednisoLONE 1% OPHTH DROPS [Pred 1 drops LEFTEYE DAILY 04/02/22 04/02/22 Forte 1% Ophth Drops] Acetaminophen [Tylenol] 650 mg PO Q4HR PRN tab 05/06/22 Amiodarone HCl 100 mg PO DAILY #30 tablet 05/06/22 Fluticasone [Flonase] 1 sprays SHENA DAILY #1 each 05/06/22 Lidocaine Ointment 5% [Xylocaine 1 applic TOP QID #1 each 05/06/22 Ointment 5%] Mineral Oil/Petrola Ophth Oint 1 applic EACHEYE QPM PRN #1 each 05/06/22 [Lubrifresh Pm Ophth Oint] Multivitamin W/Minerals [Theragran 1 tab PO DAILY #30 tab 05/06/22 M] Ondansetron Odt [Zofran Odt] 4 mg TL Q6HR PRN #30 tab 05/06/22 Pantoprazole [Protonix] 40 mg PO QDAC #30 tab 05/06/22 Zinc Oxide 20% Oint [Zinc Oxide] 1 applic TOP PRN PRN each 05/06/22 oxyCODONE [Roxicodone] 5 mg PO Q6HR PRN #20 tab 05/06/22 predniSONE [Deltasone] 1 tablet PO DAILY #30 tablet 05/06/22 ONDANSETRON ODT Prepack 2 [ZOFRAN 4 mg TL Q6H #16 tablet 05/07/22 ODT Prepack 2] - Allergies Allergies/Adverse Reactions: Allergies Allergy/AdvReac Type Severity Reaction Status Date / Time No Known Drug Allergies Allergy Verified 05/08/22 23:11 - Social History Does the pt smoke?: No Smoking Status: Never smoker - POLST Patient has POLST: No PD ED PE NORMAL - Vitals Vital signs reviewed: Yes - General General: Alert and oriented X 3, Other (deconditioned appearing) Results - Vitals Vitals: Vital Signs - 24 hr 05/08/22 05/09/22 05/09/22 23:05 00:16 00:56 Temperature 36.7 C 37.0 C Heart Rate 124 H 136 H Respiratory 16 26 H Rate Blood Pressure 81/52 L 103/56 L 63/42 L O2 Saturation 98 96 05/09/22 05/09/22 05/09/22 01:17 01:49 02:08 Temperature 38.3 C H Heart Rate 134 H 117 H Respiratory 13 21 Rate Blood Pressure 58/38 L 96/57 L 84/51 L O2 Saturation 97 97 05/09/22 05/09/22 02:18 03:30 Temperature Heart Rate 130 H 147 H Respiratory 15 Rate Blood Pressure 90/70 114/69 O2 Saturation 96 Oxygen O2 Source Room air - EKG (time done) 2329 Rate: Rate (enter#) (126) Rhythm: Sinus tachycardia, Other (atrial premature complexes. some artifact) - Labs Labs: Laboratory Tests 05/08/22 05/08/22 05/08/22 23:14 23:14 23:49 WBC 5.9 RBC 2.84 L Hgb 8.9 L Hct 27.8 L MCV 97.9 H MCH 31.3 H MCHC 32.0 RDW 20.7 H Plt Count 72 L MPV 10.6 Neut # (Auto) Not Reportable Lymph # (Auto) Not Reportable [place] # (Auto) Not Reportable Eos # (Auto) Not Reportable Baso # (Auto) Not Reportable Absolute Nucleated RBC Not Reportable Total Counted 100 Band Neuts % (Manual) 14 H Abnorm Lymph % (Manual) 0 Metamyelocytes % 4 H Myelocytes % 3 H Nucleated RBC % Not Reportable Neutrophils # (Manual) 4.5 Lymphocytes # (Manual) 0.5 L Monocytes # (Manual) 0.5 Eosinophils # (Manual) 0.0 Basophils # (Manual) 0.0 Differential Comment MANUAL DIFFERENTIAL WBC Morphology NORMAL APPEARANCE Platelet Estimate DECREASED (<130,000) Platelet Morphology NORMAL APPEARANCE RBC Morph Micro Appear 2+ ANISOCYTOSIS Sodium 137 Potassium 4.0 Chloride 100 L Carbon Dioxide 24 Anion Gap 13.0 BUN 55 H Creatinine 3.5 H Estimated GFR (MDRD) 17 L Glucose 126 H Lactic Acid 2.0 Calcium 8.3 L Total Bilirubin 0.6 AST 75 H ALT 97 H Alkaline Phosphatase 74 Total Protein 5.7 L Albumin 2.5 L Globulin 3.2 Albumin/Globulin Ratio 0.8 L Urine Color Urine Clarity Urine pH Ur Specific Mcgill Urine Protein Urine Glucose (UA) Urine Ketones Urine Occult Blood Urine Nitrite Urine Bilirubin Urine Urobilinogen Ur Leukocyte Esterase Urine RBC Urine WBC Ur Squamous Epith Cells Urine Crystals Urine Bacteria Urine Yeast Urine Culture Comments Stl C. diff Tox B Gene Blood Type Antibody Screen 05/08/22 05/09/22 05/09/22 23:56 00:40 00:40 WBC RBC Hgb Hct MCV MCH MCHC RDW Plt Count MPV Neut # (Auto) Lymph # (Auto) [place] # (Auto) Eos # (Auto) Baso # (Auto) Absolute Nucleated RBC Total Counted Band Neuts % (Manual) Abnorm Lymph % (Manual) Metamyelocytes % Myelocytes % Nucleated RBC % Neutrophils # (Manual) Lymphocytes # (Manual) Monocytes # (Manual) Eosinophils # (Manual) Basophils # (Manual) Differential Comment WBC Morphology Platelet Estimate Platelet Morphology RBC Morph Micro Appear Sodium Potassium Chloride Carbon Dioxide Anion Gap BUN Creatinine Estimated GFR (MDRD) Glucose Lactic Acid Calcium Total Bilirubin AST ALT Alkaline Phosphatase Total Protein Albumin Globulin Albumin/Globulin Ratio Urine Color YELLOW Urine Clarity SL. CLOUDY Urine pH 5.0 Ur Specific Mcgill 1.020 Urine Protein 30 H Urine Glucose (UA) NEGATIVE Urine Ketones NEGATIVE Urine Occult Blood LARGE H Urine Nitrite NEGATIVE Urine Bilirubin NEGATIVE Urine Urobilinogen 0.2 (NORMAL) Ur Leukocyte Esterase SMALL H Urine RBC 6-10 H Urine WBC 4-5 Ur Squamous Epith Cells FEW Squamous Urine Crystals 3-5 Ca Carbonate Urine Bacteria Few Urine Yeast PRESENT Urine Culture Comments INDICATED Stl C. diff Tox B Gene POSITIVE A* Blood Type AB POSITIVE Antibody Screen NEGATIVE 05/09/22 03:12 WBC RBC Hgb Hct MCV MCH MCHC RDW Plt Count MPV Neut # (Auto) Lymph # (Auto) [place] # (Auto) Eos # (Auto) Baso # (Auto) Absolute Nucleated RBC Total Counted Band Neuts % (Manual) Abnorm Lymph % (Manual) Metamyelocytes % Myelocytes % Nucleated RBC % Neutrophils # (Manual) Lymphocytes # (Manual) Monocytes # (Manual) Eosinophils # (Manual) Basophils # (Manual) Differential Comment WBC Morphology Platelet Estimate Platelet Morphology RBC Morph Micro Appear Sodium Potassium Chloride Carbon Dioxide Anion Gap BUN Creatinine Estimated GFR (MDRD) Glucose Lactic Acid 1.1 Calcium Total Bilirubin AST ALT Alkaline Phosphatase Total Protein Albumin Globulin Albumin/Globulin Ratio Urine Color Urine Clarity Urine pH Ur Specific Mcgill Urine Protein Urine Glucose (UA) Urine Ketones Urine Occult Blood Urine Nitrite Urine Bilirubin Urine Urobilinogen Ur Leukocyte Esterase Urine RBC Urine WBC Ur Squamous Epith Cells Urine Crystals Urine Bacteria Urine Yeast Urine Culture Comments Stl C. diff Tox B Gene Blood Type Antibody Screen PD Medical Decision Making - ED course Social Determinants of Health: Patient is devout mandaen and had last rites (anointing of the sick) performed by a aspnet developer the weekend before this most recent ED admission. Close friend [facility] (permission given by patient to coordinate medical care with her): Jayleen Brandt [phone] Daughters: Lexie [phone] and Cindy [phone] both live in [place]. ED course: 71-year-old man with extensive PMH including afib, dvt/pe, MDS/AML with pancytopenia presents as bounceback from SNF after being discharged there two days prior. patient was inpatient at [facility] for a month (04/02/22 to 05/07/22) with multiple medical issues including hemorrhagic cystitis, diverticular hemorrhage, deconditioning, and c diff infection. Patient has been having diarrhea since discharge and came to the ED tonight hypotensive, tachycardic, febrile. sepsis protocol was initiated. patient unresponsive to fluids and levophed needed to be initiated via his port. Labwork included cbc, lactate, abdominal panel, u/a, blood cultures. It was rem arkable for creatinine 3.5, increased from 1.0 two days prior, uti on u/a. Lactate 2. Juarez was placed for monitoring of I/O's and patient had immediate release of 500cc dark colored urine. CXR noncontributory. CT A/P showed severe colitis. d/w Kori at transfer center - no beds available at . It is strongly recommended to admit to our facility. Per it doesn't make a difference in prioritizing bed availability to admit him here in the meantime. Given that he is a patient, he is on a list for priority transfer to ICU and they are aware of his care. d/w telehealth Dr. Henderson for admission. Departure - Departure Disposition: 66 [facility] DC/Xfer Clinical Impression: BRANDEN (acute kidney injury), Clostridium difficile colitis, UTI (urinary tract infection), Septic shock Condition: Critical
[2022-05-08 23:37] LABS: ALBUMIN 2.5 g/dL (3.2-5.5); ALBUMIN/GLOBULIN RATIO 0.8 (1.0-2.2); BILIRUBIN,TOTAL 0.6 mg/dL (0.2-1.0); CALCIUM 8.3 mg/dL (8.5-10.3); CREATININE 3.5 mg/dL (0.6-1.2); TOTAL PROTEIN 5.7 g/dL (6.7-8.2)
[2022-05-08 23:47] LABS: BAND NEUTROPHILS % (MANUAL) 14 %; LYMPHOCYTES # (MANUAL) 0.5 10^3/uL (1.5-3.5); LYMPHOCYTES % (MANUAL) 8 %; METAMYELOCYTES % (MANUAL) 4 %; MONOCYTES # (MANUAL) 0.5 10^3/uL (0.0-1.0); MYELOCYTES % (MANUAL) 3 %; NEUTROPHILS # (MANUAL) 4.5 10^3/uL (1.5-6.6)
[2022-05-08 23:49] LABS: DIFFERENTIAL COMMENT MANUAL DIFFERENTIAL; PLATELET ESTIMATE, MANUAL DECREASED (<130,000) (NORMAL); PLATELET MORPHOLOGY NORMAL APPEARANCE (NORMAL); RBC MORPHOLOGY (MULTIPLE) 2+ ANISOCYTOSIS (NORMAL); WBC MORPHOLOGY (MULTIPLE) NORMAL APPEARANCE (NORMAL)
[2022-05-09] MEDS ORDERED: iohexoL-300 100 ML VIAL IVP ONE (00:28)
[2022-05-09] MEDS ORDERED: NOREPINEPHRINE/0.9 % NS 8 MG/250 ML BAG IV SCH (01:00)
[2022-05-09] MEDS ORDERED: VANCOMYCIN 125 MG CAPSULE PO SCH ×2 (01:00→09:00)
[2022-05-09 01:08] LABS: BILIRUBIN,URINE NEGATIVE (NEGATIVE); GLUCOSE, URINE (UA) NEGATIVE (NEGATIVE); KETONES,URINE (UA) NEGATIVE (NEGATIVE); LEUKOCYTE ESTERASE, URINE SMALL (NEGATIVE); NITRITE,URINE NEGATIVE (NEGATIVE); OCCULT BLOOD,URINE LARGE (NEGATIVE); PROTEIN,URINE 30 mg/dL (NEGATIVE); UROBILINOGEN,URINE 0.2 (NORMAL) E.U./dL (NORMAL)
[2022-05-09 01:16] LABS: BACTERIA,URINE Few /HPF (None Seen); CLARITY,URINE SL. CLOUDY (CLEAR); CRYSTALS,URINE 3-5 Ca Carbonate /LPF; SQUAMOUS EPITHELIAL CELL,UR FEW Squamous (<= Few); YEAST,URINE PRESENT
--- NOTE | 2022-05-09 01:35 | XRAY Report ---
PROCEDURE: Chest 1 View X-Ray INDICATIONS: Sepsis TECHNIQUE: One view of the chest was acquired. COMPARISON: Chest x-ray 03/11/2022. FINDINGS: Surgical changes and devices: There is a right internal jugular Port-A-Cath redemonstrated with the tip extending to the cavoatrial junction. Lungs and pleura: No acute consolidation. No pleural effusions or pneumothorax. Mediastinum: Mediastinal contours appear normal. Heart size is normal. Bones and chest wall: No suspicious bony lesions. Overlying soft tissues appear unremarkable. IMPRESSION: 1. No evidence of pneumonia. Reviewed by: Den Conroy MD on 05/09/2022 1:33 AM PST Approved by: Den Conroy MD on 05/09/2022 1:33 AM [facility] Station ID: [id number]
--- NOTE | 2022-05-09 01:40 | CT Report ---
PROCEDURE: ABDOMEN/PELVIS W INDICATIONS: abd pain, sepsis CONTRAST: 100 ML OMNI 300 TECHNIQUE: After the administration of intravenous contrast, 5 mm thick sections acquired from the diaphragms to the symphysis. 5 mm thick coronal and sagittal reformats were acquired. For radiation dose reducti on, the following was used: automated exposure control, adjustment of mA and/or kV according to jay ent size. COMPARISON: CT abdomen pelvis 04/02/2022. FINDINGS: Image quality: Excellent. Lung bases:There is mild scarring and dependent atelectasis in the lung bases. Heart: Heart is normal in size. There is mild fluid distention of the visualized distal esophagus. ABDOMEN: Liver: No mass lesion. Gallbladder:Gallbladder is distended without calcified gallstones or wall thickening. Biliary ducts: No biliary ductal dilatation. Pancreas: Unremarkable. Spleen: Normal in size. Adrenal Glands: No adrenal nodules. Kidneys and Ureters: No hydronephrosis. Stomach and Bowel: Stomach and small bowel loops are normal in caliber and wall thickness. Appendix is normal in appearance. There is diffuse marked colonic wall thickening throughout the colon with mu cosal enhancement consistent with extensive pancolitis. Colonic diverticulosis is present without acu te diverticulitis. Peritoneum: No abnormal intraperitoneal fluid. No free air. Ventral Wall: No hernia. Abdominal Nodes: No retroperitoneal or mesenteric adenopathy by size criteria. Vessels: Aorta and inferior vena cava are normal in size. PELVIS: Pelvic Organs: Unremarkable. Bladder:Normal wall thickness. Pelvic Nodes: No enlarged lymph nodes. Miscellaneous: No inguinal hernias. Bones: There are bilateral pars defects redemonstrated with mild anterolisthesis at L5-S1. Visualized osseous structures demonstrate no suspicious lesions. IMPRESSION: 1. Extensive marked colonic wall thickening throughout the colon consistent with a severe colitis, wi th C. difficile suspected. 2. Mild fluid distention of the visualized distal esophagus may reflect sequelae of reflux. Reviewed by: Den Conroy MD on 05/09/2022 1:39 AM [facility] Approved by: Den Conroy MD on 05/09/2022 1:39 AM [facility] Station ID: [id number]
[2022-05-09] MEDS ORDERED: SODIUM CHLORIDE 0.9% 1,000 ML IV STA (02:20)
[2022-05-09] MEDS ORDERED: KETOROLAC 15 MG/ML VIAL IVP STA (03:08)
[2022-05-09] MEDS ORDERED: ONDANSETRON 4 MG/2 ML VIAL IVP PRN (03:48)
[2022-05-09] MEDS ORDERED: ACETAMINOPHEN 325 MG TABLET PO PRN (03:48)
[2022-05-09] MEDS ORDERED: SODIUM CHLORIDE FLUSH 0.9% 10 ML SYRINGE IVP PRN (03:48)
[2022-05-09] MEDS ORDERED: metroNIDAZOLE 500 MG/100 ML 500 MG/100 ML BAG IV SCH (04:00)
[2022-05-09] MEDS ORDERED: LACTATED RINGERS 1,000 ML IV SCH (04:00)
[2022-05-09] MEDS ORDERED: diltiaZEM INJ 5 MG/ML VIAL IVP STA (04:01)
--- NOTE | 2022-05-09 04:11 | HISTORY & PHYSICAL EXAMINATION ---
History and Physical - History and Physical Chief complaint Abdominal pain and diarrhea History of present illness This is 71-year-old male with previous history of AML/MDS status post stem cell transplant, A-fib flutter, CHF, diffuse alveolar hemorrhage, diabetes, chronic kidney disease etc. was recently treated for hemorrhagic cystitis as well as C. difficile colitis. Patient is previously finished a course of vancomycin on April 15. Patient is coming back to the emergency room with worsening of diarrhea and abdominal pain. Abdominal CT done in the emergency room showed extensive colonic wall thickening throughout the colon consistent with severe colitis. Chest x-ray did not show any acute abnormalities. Patient is complaining of abdominal pain. Denies any shortness of breath chest pain etc. He is feeling weak. He had multiple episodes of watery diarrhea in the last few days. Patient was hypotensive and tachycardic in the emergency room. He received 2 L of normal saline bolus followed by Levophed infusion. Currently patient is on Levophed at 12mcg/min. Blood pressure is improved but tachycardia is still persistent with heart rate around 140s. Patient does not have any leukocytosis but has creatinine of around 3.5 which was within normal limits before few days hemoglobin is stable around 8.9. Past medical history Recent history of acute hemorrhagic cystitis GI bleed Nosebleed Sacral decubitus ulcer Chronic diastolic congestive heart failure Paroxysmal atrial fibrillation Renal failure C. difficile colitis Hypotension History of DVT and PE Pancytopenia AML/MDS Past surgical history Knee replacement and cataracts Social history No history of alcohol use or drugs or tobacco products Family history father had cancer and heart problems Review of system 14 point review of system was done. It was negative except as per history present illness. 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 Moving all [address] scan of the abdomen pelvis Reviewed Assessment 1. Shock, hypovolemic versus septic 2. C. difficile colitis. Patient was recently treated for C. difficile colitis before [address] scan abdomen pelvis showed diffuse colitis 3. Acute renal failure 4. Previous history of DVT and PE. Patient has recent history of hemorrhagic cystitis diverticular hemorrhage and nosebleed. Patient is not on any anticoagulation 5. Severe protein calorie malnutrition 6. Sacral decubitus ulcer 7. Paroxysmal atrial fibrillation. A-fib with RVR needs to be ruled out as patient is significantly tachycardic at this time 8. Dehydration 9. Previous history of AML/MDS status post stem cell transplant Plan Admit patient in ICU Start patient on oral vancomycin as well as IV Flagyl Continue IV hydration with Ringer lactate Continue Levophed infusion and titrate as needed Avoid nephrotoxic medications including Toradol Check daily input and output Check daily weight Consider amiodarone infusion versus one-time dose of Cardizem push for significant tachycardia with heart rate around 150 Check daily labs CODE STATUS Full code Total time taken for this was 70 minutes. This was telemedicine evaluation using bedside telemedicine audiovisual cart.
[2022-05-09 04:20] LABS: CORONAVIRUS 229E-RESP PCR NOT DETECTED; CORONAVIRUS HKU1-RESP PCR NOT DETECTED; CORONAVIRUS NL63-RESP PCR NOT DETECTED; CORONAVIRUS OC43-RESP PCR NOT DETECTED
[2022-05-09 04:21] LABS: B. PARAPERTUSSIS- RESP PCR PAN NOT DETECTED; B. PERTUSSIS- RESP PCR PANEL NOT DETECTED; C. PNEUMONIAE- RESP PCR PANEL NOT DETECTED; HUMAN METAPNEUMOVIRUS NOT DETECTED; INFLUENZA A- RESP PCR PANEL NOT DETECTED; INFLUENZA B - RESP PCR PANEL NOT DETECTED; M. PNEUMONIAE- RESP PCR PANEL NOT DETECTED; PARAINFLUENZA VIRUS 1 NOT DETECTED; PARAINFLUENZA VIRUS 2 NOT DETECTED; PARAINFLUENZA VIRUS 3 NOT DETECTED; PARAINFLUENZA VIRUS 4 NOT DETECTED; RHINOVIRUS/ENTEROVIRUS NOT DETECTED; RSV- RESP PCR PANEL NOT DETECTED
[2022-05-09 04:24] LABS: SARS-CoV-2 -RESP PCR PANEL DETECTED
[2022-05-09] MEDS ORDERED: VANCOMYCIN INJ 1 GM in SODIUM CHLORIDE 0.9% 250 ML IV SCH (05:00)
[2022-05-09] MEDS ORDERED: ZINC OXIDE 20% OINT 30 GM TUBE TOP PRN (05:38)
[2022-05-09] MEDS ORDERED: ZINC OXIDE 20% OINT 30 GM TUBE TOP ONE (05:40)
[2022-05-09 06:22] VITALS: BP 92/68
[2022-05-09] MEDS ORDERED: SODIUM CHLORIDE FLUSH 0.9% 10 ML SYRINGE IVP SCH (09:00)
== END 2022-05-09 07:00 | disposition short-term general hospital (02) | DRG 871 ==
LOC: EDUNIT# → ED 22:57 → ICU 05-09 03:48
PROVIDERS: ADMIT Internal Medicine; ATTEND Internal Medicine
DX: A41.9 Sepsis, unspecified organism (principal); E43 Unspecified severe protein-calorie malnutrition; R65.21 Severe sepsis with septic shock; A04.72 Enterocolitis due to Clostridium difficile, not specified as recurrent; N39.0 Urinary tract infection, site not specified; Z20.822 Contact with and (suspected) exposure to COVID-19; N17.9 Acute kidney failure, unspecified; C92.01 Acute myeloblastic leukemia, in remission; D61.818 Other pancytopenia; I50.32 Chronic diastolic (congestive) heart failure; I48.0 Paroxysmal atrial fibrillation; I25.10 Atherosclerotic heart disease of native coronary artery without angina pectoris; Z79.01 Long term (current) use of anticoagulants; I48.91 Unspecified atrial fibrillation; E86.1 Hypovolemia; I95.9 Hypotension, unspecified; R00.0 Tachycardia, unspecified; L89.159 Pressure ulcer of sacral region, unspecified stage; Z86.718 Personal history of other venous thrombosis and embolism; Z86.711 Personal history of pulmonary embolism; E86.0 Dehydration; Z68.22 Body mass index [BMI] 22.0-22.9, adult; D46.9 Myelodysplastic syndrome, unspecified
CPT/HCPCS: 36415; 51702; 71045; 74177; 80053; 81001; 83605; 85025; 86850; 86900; 86901; 87040; 87086; 87493; 87633; 93005; 96365; 96366; 96368; 96375; 99291; 99292; A9270; J3370; J7120; J8499; Q9967; 83735; 84100; 87045; 87046; 87427

== ENCOUNTER 2022-12-17 12:53 | Emergency (ER) | payer MEDICARE, OTHER ==
[2022-12-17 13:11] VITALS: BP 110/69; O2SAT 96
--- NOTE | 2022-12-17 14:02 | ED Physician Documentation ---
History of Present Illness - Stated complaint Stated Complaint: - Chief complaint Chief Complaint: Abd Pain - Additonal information Additional information: 72-year-old male presents to the emergency department for evaluation of 1 week left scrotal pain and redness. Referred by his PCP for concerns of infection. Patient denies any falls or trauma. No history of similar. No urinary urgency or frequency. No penile discharge. He began having swelling of the scrotum and tenderness just about 1 week ago. Past medical history is most significant for diabetes, Jules's granulomatosis, CKD stage III, A-fib, a flutter, heart failure, history of alveolar hemorrhage on prednisone, pancytopenia, AML/MDS status post mud PBSCT aloe stem cell transplant in 2020. Review of Systems Constitutional: denies: Fever, Chills : reports: Other (Left scrotal pain erythema and redness.). denies: Dysuria PD PAST MEDICAL HISTORY - Past Medical History Cardiovascular: Coronary artery disease, Atrial fibrillation (On chronic anticoagulation) Respiratory: None Neuro: None Endocrine/Autoimmune: None, Other GI: GERD, Hemorrhoids : Incontinence, Chronic bladder infection, Frequency HEENT: Other (cataracts sp cataract surgery ) Psych: None Musculoskeletal: Fatigue, Other Derm: None, Other (paper thin skin loss of sub q tissue ) - Past Surgical History Ortho: Knee replacement HEENT: Cataracts - Present Medications Home Medications: Ambulatory Orders Medication Instructions Recorded Confirmed Ofloxacin 0.3% Ophth Drops 1 drops LEFTEYE DAILY 04/02/22 11/22/22 [Ocuflox 0.3% Ophth Drops] prednisoLONE 1% OPHTH DROPS [Pred 1 drops LEFTEYE DAILY 04/02/22 11/22/22 Forte 1% Ophth Drops] Pantoprazole [Protonix] 40 mg PO QDAC #30 tab 05/06/22 11/22/22 predniSONE [Deltasone] 1 tablet PO DAILY #30 tablet 05/06/22 11/22/22 levoFLOXacin [Levaquin] 500 mg PO QD #20 tablet 12/17/22 - Allergies Allergies/Adverse Reactions: Allergies Allergy/AdvReac Type Severity Reaction Status Date / Time No Known Drug Allergies Allergy Verified 12/17/22 13:03 - Social History Does the pt smoke?: No Smoking Status: Never smoker - POLST Patient has POLST: No PD ED PE NORMAL - General General: Alert and oriented X 3, No acute distress - HEENT HEENT: Other (Wears a left eye patch) - Neck Neck: Supple, no meningeal sign - Cardiac Cardiac: RRR - Respiratory Respiratory: No respiratory distress - Abdomen Abdomen: Normal bowel sounds, Soft - Male Male : [place] Man present (Clemencia RN. No penile pain tenderness or discharge. Positive cremasteric bilaterally. Left scrotum mildly erythematous and tender though no drainage. Right scrotum and testes unremarkable.) Results - Vitals Vitals: Vital Signs - 24 hr 12/17/22 13:03 Temperature 36.9 C Heart Rate 100 Respiratory 16 Rate Blood Pressure 110/69 O2 Saturation 96 Oxygen O2 Source Room air - Labs Labs: Laboratory Tests 12/17/22 12/17/22 14:41 14:41 WBC 4.5 L RBC 2.47 L Hgb 9.4 L Hct 27.1 L MCV 109.7 H MCH 38.1 H MCHC 34.7 RDW 13.5 Plt Count 57 L MPV 9.5 Neut # (Auto) 3.5 Lymph # (Auto) 0.5 L [place] # (Auto) 0.5 Eos # (Auto) 0.0 Baso # (Auto) 0.0 Absolute Nucleated RBC 0.00 Nucleated RBC % 0.0 Sodium 135 Potassium 4.1 Chloride 102 Carbon Dioxide 27 Anion Gap 6.0 BUN 30 H Creatinine 1.2 Estimated GFR (MDRD) 60 L Glucose 128 H Calcium 9.5 Total Bilirubin 0.4 AST 15 ALT 18 Alkaline Phosphatase 94 Total Protein 6.2 L Albumin 3.5 Globulin 2.7 Albumin/Globulin Ratio 1.3 Lipase 9 L - Rads (name of study) testicular US Relevant Findings:: Final report received (Left epididymitis. Right testicular lesion/mass.) PD Medical Decision Making - ED course Complexity details: reviewed results, re-evaluated patient, d/w patient ED course: 72-year-old male presents emergency department for evaluation of 1 week of left scrotal erythema and tenderness. Denies any urinary symptoms. He does have a longstanding complex medical history that does include cancer status post stem cell transplant. No falls trauma or fever. On exam he does have an erythematous tender left scrotum. No penile discharge. Positive cremasteric bilaterally. We did obtain CBC, electrolytes and urinalysis. Per my interpretation he has a chronic pancytopenia essentially unchanged from baseline. His electrolytes showed preserved normal renal function. Urinalysis is consistent with infection however patient is asymptomatic from the standpoint. none the less he will be started on levaquin as below for epididymitis An ultrasound of the scrotum and testes did reveal a left epididymitis. There is also an unexpected finding of a right testicular mass. Subsequently I spoke to the patient and his . We will elect to treat the epididymitis with Levaquin 500 mg daily for the next 10 days. Patient is followed by urologist at [facility] and is advised prompt follow-up for concern of the right testicular mass. He is discharged home in stable condition with usual emergent return precautions discussed for worsening symptoms. Departure - Departure Disposition: 01 Home, Self Care Clinical Impression: Epididymitis, left, Mass of right testicle Condition: Stable Record reviewed to determine appropriate education?: Yes Instructions: Epididymitis Dc Prescriptions: levoFLOXacin [Levaquin] 500 mg PO QD #20 tablet Comments: Koko you are seen today in the ED because you have been having some pain swelling and redness to your left scrotum for about 1 week. The ultrasound confirms that you have epididymitis on the left side. This is an infection and inflammation of the epididymis. This is typically treated with antibiotics. I sent a prescription for Levaquin to [facility] in [place]. You will take 500 mg or 2 tablets once daily for 10 days. There was an unexpected finding of a small right testicular mass. This must be followed very closely with urology. Please contact urologist at [facility] for follow-up in the next week or two. They may elect to do a biopsy. This is concerning given your history of previous cancer. Your imaging has been sent electronically to [facility] and they should be able to access it at your appointment Your labs today otherwise did not show any unexpected findings. You do have a chronic unchanged anemia. Your kidney function remains stable. Return to the ER if you find that you are having fevers, worsening pain swelling or redness of the scrotum despite the antibiotics or any other concerns of worsening infection Forms: PCP List
[2022-12-17 14:51] LABS: BASOPHILS % (AUTO) 0.2 %; EOSINOPHILS % (AUTO) 0.7 %; HCT - HEMATOCRIT 27.1 % (42.0-52.0); HGB - HEMOGLOBIN 9.4 g/dL (14.0-18.0); LYMPHOCYTES # (AUTO) 0.5 10^3/uL (1.5-3.5); MEAN CORPUSCULAR HEMOGLOBIN 38.1 pg (27.0-31.0); MEAN CORPUSCULAR HGB CONC 34.7 g/dL (32.0-36.0); MEAN CORPUSCULAR VOLUME 109.7 fL (80.0-94.0); MEAN PLATELET VOLUME 9.5 fL (7.4-11.4); MONOCYTES # (AUTO) 0.5 10^3/uL (0.0-1.0); MONOCYTES % (AUTO) 10.2 %; NEUTROPHILS # (AUTO) 3.5 10^3/uL (1.5-6.6); NEUTROPHILS % (AUTO) 78.7 %; PLT - PLATELET COUNT 57 10^3/uL (130-450); RED BLOOD COUNT 2.47 10^6/uL (4.70-6.10); RED CELL DISTRIBUTION WIDTH 13.5 % (12.0-15.0); WHITE BLOOD COUNT 4.5 x10^3/uL (4.8-10.8)
[2022-12-17 15:03] LABS: ALBUMIN 3.5 g/dL (3.2-5.5); ALBUMIN/GLOBULIN RATIO 1.3 (1.0-2.2); BILIRUBIN,TOTAL 0.4 mg/dL (0.2-1.0); CALCIUM 9.5 mg/dL (8.5-10.3); CREATININE 1.2 mg/dL (0.6-1.3); POTASSIUM 4.1 mmol/L (3.5-4.5); TOTAL PROTEIN 6.2 g/dL (6.4-8.9)
[2022-12-17] MEDS ORDERED: levoFLOXacin 250 MG TABLET PO STA (15:09)
--- NOTE | 2022-12-17 15:18 | Ultrasound Report ---
PROCEDURE: Testicle w/Doppler INDICATIONS: 1 week left scrotal pain, redness TECHNIQUE: Real-time scanning was performed of the scrotum and testicles, with image documentation. Color and p ulse Doppler interrogation was performed of both testicles. COMPARISON: None. FINDINGS: Right: Testicle is normal in size at 1.8 x 1.9 x 2.4 cm. Within the right testicle, there is a hypoe choic focus that measures 7 x 10 x 6 mm. Epididymis is normal in overall size and morphology. Hyperec hoic material can be seen adjacent to the right epididymis. There is a moderate right-sided hydrocel e, with mild echogenic debris. No varicoceles. Overlying scrotal skin is normal in thickness. Left: Testicle is normal in size at 1.8 x 2 x 2 cm, and homogeneous in echotexture. The left epididy mis is prominent and echogenic. There is a moderate left-sided hydrocele, with mild echogenic debris . No varicoceles. Overlying scrotal skin is normal in thickness. Doppler: Color and pulse Doppler demonstrate normal and symmetric arterial flow in both testicles. IMPRESSION: The left epididymis is thickened and hypervascular. Epididymitis is suspected. There is a 1 cm hypoechoic apparent mass involving the right testicle. -Urologic consultation is recommended. Hyperechoic material can be seen along the course of the epididymis on both sides. The clinical signi ficance of this is uncertain. Please consider short-term follow-up. Moderate bilateral hydroceles, with mild echogenic debris. Reviewed by: Landon Thornton MD on 12/17/2022 2:17 PM [facility] Approved by: Landon Thornton MD on 12/17/2022 2:17 PM [facility] Station ID: [id number]
[2022-12-17 15:19] LABS: BILIRUBIN,URINE NEGATIVE (NEGATIVE); GLUCOSE, URINE (UA) NEGATIVE (NEGATIVE); KETONES,URINE (UA) NEGATIVE (NEGATIVE); LEUKOCYTE ESTERASE, URINE MODERATE (NEGATIVE); NITRITE,URINE POSITIVE (NEGATIVE); OCCULT BLOOD,URINE LARGE (NEGATIVE); PH,URINE 5.5 PH (5.0-7.5); PROTEIN,URINE 100 mg/dL (NEGATIVE); UROBILINOGEN,URINE 0.2 (NORMAL) E.U./dL (NORMAL)
[2022-12-17 15:20] LABS: CLARITY,URINE CLOUDY (CLEAR)
[2022-12-17 15:29] LABS: BACTERIA,URINE Many /HPF (None Seen); RBC,URINE TNTC /HPF (0-5); SQUAMOUS EPITHELIAL CELL,UR NONE SEEN (<= Few); WBC,URINE >25 /HPF (0-3)
== END 2022-12-17 15:33 | disposition home or self-care (01) ==
LOC: ED 12:53
DX: N45.1 Epididymitis (principal); N50.89 Other specified disorders of the male genital organs; I48.91 Unspecified atrial fibrillation; Z79.01 Long term (current) use of anticoagulants
CPT/HCPCS: 36415; 76870; 80053; 81001; 83690; 85025; 87086; 93975; 99284; A9270; 81003

== ENCOUNTER 2023-02-15 14:52 | Outpatient (CLI) | payer MEDICARE, OTHER | END 2023-02-15 14:53 | disposition home or self-care (01) | LOC: DI 14:52 | PROVIDERS: ATTEND Internal Medicine | DX: I48.91 Unspecified atrial fibrillation (principal); I51.7 Cardiomegaly; I77.810 Thoracic aortic ectasia | CPT/HCPCS: 93306 ==

== ENCOUNTER 2023-02-20 13:10 | Outpatient (CLI) | payer MEDICARE, OTHER ==
--- NOTE | 2023-02-20 17:12 | Ultrasound Report ---
PROCEDURE: Testicle INDICATIONS: TESTICULAR MASS TECHNIQUE: Real-time scanning was performed of the scrotum and testicles, with image documentation. Color and p ulse Doppler interrogation was performed of both testicles. COMPARISON: 12/17/2022, which suggested a possible hypoechoic right testicular mass measuring 10 mm i n maximum diameter.. FINDINGS: Right: Testicle is small in size at 2.4 x 1.1 x 1.7 cm, and homogenous in echotexture. Epididymis i s normal in overall size and morphology. No hydrocele. No varicoceles. Overlying scrotal skin is no rmal in thickness. Left: Testicle is small in size at 2.5 x 1.4 x 1.6 cm, and homogeneous in echotexture. Epididymis i s normal in overall size and morphology. No hydrocele. No varicoceles. Overlying scrotal skin is no rmal in thickness. Doppler: Color and pulse Doppler demonstrate normal and symmetric arterial flow in both testicles. IMPRESSION: 1. No right testicular mass was identified on today's study. Reviewed by: Feliciano White MD on 02/20/2023 5:10 PM PST Approved by: Feliciano White MD on 02/20/2023 5:10 PM PST Station ID: [id number]
== END 2023-02-20 13:11 | disposition home or self-care (01) ==
LOC: DI 13:10
PROVIDERS: ATTEND Urology
DX: N50.89 Other specified disorders of the male genital organs (principal)

== ENCOUNTER 2023-09-19 08:03 | Emergency (ER) | payer MEDICARE ==
--- NOTE | 2023-09-19 09:23 | ED Physician Documentation ---
PD HPI ABD PAIN - Stated complaint Stated Complaint: ,ABD PX - Chief complaint Chief Complaint: Abd Pain - History obtained from History obtained from: Patient - History of Present Illness Timing - onset: Yesterday Timing - details: Gradual onset, Still present, Waxing and waning Quality: Cramping, Aching, Pain Location: Suprapubic, LLQ Radiation: No: Lower back, Left flank Associated symptoms: Nausea, Dysuria (difficulty uringating with only small amounts out.), Hematuria. No: Fever, Hematemesis Similar symptoms before: Has not had sx before Review of Systems Constitutional: denies: Fever, Chills GI: denies: Constipation, Diarrhea Skin: denies: Rash, Lesions PD PAST MEDICAL HISTORY - Past Medical History Past Medical History: Yes Cardiovascular: Coronary artery disease, Atrial fibrillation Respiratory: None Neuro: None Endocrine/Autoimmune: None, Other GI: GERD, Hemorrhoids : Incontinence, Chronic bladder infection, Frequency HEENT: None, Other Psych: None Musculoskeletal: Fatigue, Other Derm: None, Other Other Past Medical History: MCL - Past Surgical History Past Surgical History: Yes Ortho: Knee replacement HEENT: Cataracts - Present Medications Home Medications: Ambulatory Orders Medication Instructions Recorded Confirmed Apixaban [Eliquis] 1 tab PO DAILY 09/19/23 09/19/23 Cyanocobalamin (Vitamin B-12) 1 cap PO DAILY 09/19/23 09/19/23 [Vitamin B-12] Fluticasone [Flonase] 1 applic INH BID 09/19/23 09/19/23 Lactobacillus Combination No.4 1 cap PO DAILY 09/19/23 09/19/23 [Probiotic] Magnesium Glycinate 1 tab PO DAILY 09/19/23 09/19/23 Melatonin 1 tab PO DAILY 09/19/23 09/19/23 Metoprolol Succinate [Toprol Xl] 0.5 tab PO DAILY 09/19/23 09/19/23 Ofloxacin 0.3% Ophth Drops 1 drops LEFTEYE DAILY 09/19/23 09/19/23 [Ocuflox 0.3% Ophth Drops] Panax, Belizean Ginsg/B12/Royl 1 cap PO DAILY 09/19/23 09/19/23 [Ginseng Complex Capsule] Pantoprazole [Protonix] 1 tab PO DAILY 09/19/23 09/19/23 Phenazopyridine HCl [Pyridium] 100 mg PO TID PRN #15 tablet 09/19/23 Prednisone [Jazzmine] 1 tab PO DAILY 09/19/23 09/19/23 Zinc Gluconate [Zinc] 1 tab PO DAILY 09/19/23 09/19/23 cephALEXin [Keflex] 500 mg PO TID #20 cap 09/19/23 prednisoLONE 1% OPHTH DROPS [Pred 1 drops LEFTEYE DAILY 09/19/23 09/19/23 Forte 1% Ophth Drops] valACYclovir [Valtrex] 1 tab PO BID 09/19/23 09/19/23 - Allergies Allergies/Adverse Reactions: Allergies Allergy/AdvReac Type Severity Reaction Status Date / Time No Known Drug Allergies Allergy Verified 09/19/23 08:17 - Social History Does the pt smoke?: No Smoking Status: Never smoker Does the pt drink ETOH?: No Does the pt have substance abuse?: No - Immunizations Immunizations are current?: Yes - POLST Patient has POLST: No PD ED PE NORMAL - Vitals Vital signs reviewed: Yes - General General: Alert and oriented X 3, Well developed/nourished, Other (appears in pain from lower abd. Suprapubic area locally distended c/w full bladder. Tender there, more left than right. ) - Cardiac Cardiac: RRR, No murmur - Respiratory Respiratory: No respiratory distress, Clear bilaterally - Abdomen Abdomen: Normal bowel sounds, No organomegaly - Back Back: No CVA TTP - Derm Derm: Normal color, Warm and dry Results - Vitals Vitals: Oxygen O2 Source Room air - Labs Labs: Microbiology 09/19/23 12:40 Urine Culture - Final Urine,Clean Catch 10-50,000 COLONIES/ML Polymicrobial growth including potential pathogens. This is suggestive of skin or other contamination. Laboratory Tests 09/19/23 09/19/23 09/19/23 09:53 09:53 12:40 WBC 7.1 RBC 2.63 L Hgb 10.3 L Hct 29.1 L MCV 110.6 H MCH 39.2 H MCHC 35.4 RDW 13.2 Plt Count 90 L MPV 9.2 Neut # (Auto) 5.8 Lymph # (Auto) 0.5 L Howard # (Auto) 0.7 Eos # (Auto) 0.0 Baso # (Auto) 0.0 Absolute Nucleated RBC 0.00 Nucleated RBC % 0.0 Manual Slide Review Indicated WBC Morphology NORMAL APPEARANCE Platelet Estimate DECREASED (<130,000) Platelet Morphology NORMAL APPEARANCE RBC Morph Micro Appear 2+ MACROCYTOSIS Sodium 136 Potassium 4.2 Chloride 105 Carbon Dioxide 24 Anion Gap 7.0 BUN 30 H Creatinine 1.7 H Estimated GFR (MDRD) 40 L Glucose 143 H Calcium 9.2 Total Bilirubin 0.5 AST 13 ALT 12 Alkaline Phosphatase 80 Total Protein 6.3 L Albumin 3.6 Globulin 2.7 Albumin/Globulin Ratio 1.3 Lipase < 10 L Urine Color RED/BLOODY Urine Clarity TURBID Urine pH 7.5 Ur Specific [place]az 1.010 Urine Protein 100 H Urine Glucose (UA) NEGATIVE Urine Ketones NEGATIVE Urine Occult Blood LARGE H Urine Nitrite POSITIVE H Urine Bilirubin NEGATIVE Urine Urobilinogen 2 H Ur Leukocyte Esterase NEGATIVE Urine RBC TNTC H Urine WBC 0-3 Ur Squamous Epith Cells NONE SEEN Urine Bacteria Rare Ur Microscopic Review INDICATED Urine Culture Comments INDICATED - Rads (name of study) abd/pelvic CT Relevant Findings:: Prelim report reviewed (left hydroureter and nephrosis without stone. Could be recently passed one. c/w infection possible as well. No other acute findings. ), EMP independent interpretation of test PD Medical Decision Making - ED course Complexity details: reviewed results (CT scan did not show other cause for pain. returned to idea of urinary retnention with clots and likely spasms. Martin placed and helped his pain considerably. Irrigated of clots and blood until clear. Can treat for infection as UA c/w that. ), considered differential (He has moderate urinary retnetion of 300-400 ml on bladder scanner. He did not want martin but was only able to urinate small amount. He was not believing my opinion of the bladder causing his pain, so we did do CT scan, as it is possible to have sigmoid diverticulitis or stone or such to cause pain.), d/w patient Departure - Departure Disposition: 01 Home, Self Care Clinical Impression: Lower abdominal pain, Acute urinary retention, Anticoagulant long-term use UTI (urinary tract infection) Qualifiers: Urinary tract infection type: acute cystitis Hematuria presence: with hematuria Qualified Code(s): N30.01 - Acute cystitis with hematuria Condition: Stable Record reviewed to determine appropriate education?: Yes Instructions: ED UTI Cystitis Male Follow-Up: Charisse Santamaria MD [Primary Care Provider] - Jose Salazar MD [Provider Admit Priv/Credential] - Prescriptions: cephALEXin [Keflex] 500 mg PO TID #20 cap Phenazopyridine HCl [Pyridium] 100 mg PO TID PRN #15 tablet PRN Reason: Abdominal Pain Comments: You did have enlargement of the bladder with some pressure up to the left ureter and kidney in particular. No signs of stones in the ureter. No other acute abnormalities on the CT. Given the amount of urine in your bladder, I believe the discomfort you are having was from urinary retention caused by infection and some clots. We did put a Martin catheter in in order to help drain the fluid and irrigated the bladder to clear the clots. The catheter should stay in until the problem relating to the difficulty urine needing is improved, meaning treatment of the bladder infection and the subsequent clearing of the bleeding. This typically would be several days or so. At this point there does not appear to be an indication for admission to the hospital. We gave you a first dose of antibiotics and I wrote a prescription fo r antibiotics plus medication to help with discomfort of the neobladder and Martin. I sent these to your preferred pharmacy in [place]. We would typically keep the catheter in for several days at least while improving on the conditions that led to it, in this case the infection with antibiotics. The catheter will also allow for a more consistent output from the bladder so there is less pooling of blood and formation of clots to clog the outflow. Continue usual medications. Tylenol if needed for pains. Follow-up with your primary care or even better would be follow-up with urology in several days to week. Call later today or tomorrow for an appointment time. Forms: PCP List Discharge Date/Time: 09/19/23 17:28
[2023-09-19] MEDS: HYDROmorphone 1 MG/ML CARPUJECT IVP STA ×2 (09:53→14:13)
[2023-09-19] MEDS: ONDANSETRON ODT 4 MG TABLET TL STA (09:56)
[2023-09-19 10:00] LABS: BASOPHILS % (AUTO) 0.1 %; EOSINOPHILS % (AUTO) 0.1 %; HCT - HEMATOCRIT 29.1 % (42.0-52.0); HGB - HEMOGLOBIN 10.3 g/dL (14.0-18.0); LYMPHOCYTES # (AUTO) 0.5 10^3/uL (1.5-3.5); LYMPHOCYTES % (AUTO) 7.4 %; MEAN CORPUSCULAR HEMOGLOBIN 39.2 pg (27.0-31.0); MEAN CORPUSCULAR HGB CONC 35.4 g/dL (32.0-36.0); MEAN CORPUSCULAR VOLUME 110.6 fL (80.0-94.0); MEAN PLATELET VOLUME 9.2 fL (7.4-11.4); MONOCYTES # (AUTO) 0.7 10^3/uL (0.0-1.0); MONOCYTES % (AUTO) 10.1 %; NEUTROPHILS # (AUTO) 5.8 10^3/uL (1.5-6.6); NEUTROPHILS % (AUTO) 81.9 %; PLT - PLATELET COUNT 90 10^3/uL (130-450); RED BLOOD COUNT 2.63 10^6/uL (4.70-6.10); RED CELL DISTRIBUTION WIDTH 13.2 % (12.0-15.0); WHITE BLOOD COUNT 7.1 x10^3/uL (4.8-10.8)
[2023-09-19 10:14] LABS: ALBUMIN 3.6 g/dL (3.2-5.5); ALBUMIN/GLOBULIN RATIO 1.3 (1.0-2.2); ALKALINE PHOSPHATASE 80 IU/L (42-121); ALT ALANINE AMINOTRANSFERASE 12 IU/L (10-60); AST ASPARTATE AMINOTRANSFERASE 13 IU/L (10-42); BILIRUBIN,TOTAL 0.5 mg/dL (0.2-1.0); BUN - BLOOD UREA NITROGEN 30 mg/dL (6-20); CALCIUM 9.2 mg/dL (8.5-10.3); CARBON DIOXIDE - CO2 24 mmol/L (21-32); CHLORIDE 105 mmol/L (101-111); CREATININE 1.7 mg/dL (0.6-1.3); GFR - MDRD 40 (>89); GLUCOSE 143 mg/dL (74-104); POTASSIUM 4.2 mmol/L (3.5-4.5); SODIUM 136 mmol/L (135-145); TOTAL PROTEIN 6.3 g/dL (6.4-8.9)
[2023-09-19 10:16] LABS: LIPASE < 10 U/L (11-82)
[2023-09-19 10:20] LABS: PLATELET ESTIMATE, MANUAL DECREASED (<130,000) (NORMAL); PLATELET MORPHOLOGY NORMAL APPEARANCE (NORMAL); SLIDE REVIEW? Indicated; WBC MORPHOLOGY (MULTIPLE) NORMAL APPEARANCE (NORMAL)
[2023-09-19] MEDS ORDERED: iohexoL-300 100 ML VIAL ONE (11:13)
--- NOTE | 2023-09-19 12:56 | CT Report ---
PROCEDURE: Abdomen/Pelvis W INDICATIONS: lower abd pain CONTRAST: Omni 300 100ml TECHNIQUE: After the administration of intravenous contrast, a CT scan of the abdomen and pelvis was performed. Images were recorded and evaluated at appropriate window settings. Reformats: coronal and sagittal. F or radiation dose reduction, the following was used: automated exposure control, adjustment of mA and /or kV according to patient size. COMPARISON: CT abdomen pelvis 05/09/2022 FINDINGS: Image quality: Diagnostic. Lower chest: Unremarkable. Liver: No solid mass. Hepatic steatosis. Gallbladder: Small luminal calcifications without wall thickening. Biliary tree: No intrahepatic or extrahepatic dilation, accounting for age. Spleen: No splenomegaly. Pancreas: No pancreatic ductal dilation. Adrenals: No adrenal nodule. Kidneys and ureters: Bilateral simple renal cysts. There is moderate left hydronephrosis and hydroure ter. No stones are identified. There is a 1 cm lateral calcification, Hounsfield units 597. There is decreased enhancement within the left kidney compared to the right. Stomach, bowel and peritoneum: No gastric or small bowel dilation. No abnormal wall thickening. No pa thologic free fluid. Scattered colonic diverticula. Lymph nodes: No central or retroperitoneal adenopathy. Vessels: No infrarenal aortic aneurysm. Patent portal vein. PELVIS Reproductive organs: Unremarkable. Bladder: Multiple stones are present within the bladder the largest measuring 1 cm Hounsfield units 5 97. Several are new compared to prior exam in 2022. Pelvic lymph nodes: No pelvic adenopathy by size criteria. Bones: No aggressive osseous abnormality. Other: Bilateral fat-containing inguinal hernia. IMPRESSION: Moderate left hydronephrosis and hydroureter. This may be secondary to a recently passed stone in the bladder. There is asymmetric decreased enhancement of left kidney. This could be secondary to edema. However, similar appearance can also be seen with infection or inflammation and recommend correlatio n to urinalysis and follow-up as indicated. Cholelithiasis without imaging evidence of cholecystitis. Diverticulosis. Reviewed by: Celina Tamayo MD on 09/19/2023 12:54 PM PDT Approved by: Celina Tamayo MD on 09/19/2023 12:54 PM PDT Station ID: [id number]
[2023-09-19 12:59] LABS: BILIRUBIN,URINE NEGATIVE (NEGATIVE); GLUCOSE, URINE (UA) NEGATIVE (NEGATIVE); KETONES,URINE (UA) NEGATIVE (NEGATIVE); LEUKOCYTE ESTERASE, URINE NEGATIVE (NEGATIVE); NITRITE,URINE POSITIVE (NEGATIVE); OCCULT BLOOD,URINE LARGE (NEGATIVE); PH,URINE 7.5 PH (5.0-7.5); PROTEIN,URINE 100 mg/dL (NEGATIVE); UROBILINOGEN,URINE 2 E.U./dL (NORMAL)
[2023-09-19 13:11] LABS: CLARITY,URINE TURBID (CLEAR)
[2023-09-19 13:12] LABS: BACTERIA,URINE Rare /HPF (None Seen); RBC,URINE TNTC /HPF (0-5); SQUAMOUS EPITHELIAL CELL,UR NONE SEEN (<= Few); WBC,URINE 0-3 /HPF (0-3)
[2023-09-19] MEDS: LIDOCAINE 2% URO-JET 5 ML SYRINGE UR STA (14:13)
[2023-09-19] MEDS: cefTRIAXone 1 GM VIAL IVP STA (14:13)
[2023-09-19] MEDS: SODIUM CHLORIDE 0.9% 1,000 ML IV STA (15:08)
[2023-09-19] MEDS: iohexoL-300 100 ML VIAL IVP ONE (16:00)
[2023-09-19 17:42] VITALS: BP 128/80; O2SAT 100
== END 2023-09-19 17:28 | disposition home or self-care (01) ==
LOC: ED 08:03
DX: N30.01 Acute cystitis with hematuria (principal); R33.9 Retention of urine, unspecified; Z79.01 Long term (current) use of anticoagulants
CPT/HCPCS: 36415; 51700; 74177; 80053; 81001; 83690; 85025; 87086; 96374; 96375; 99284; J1170; Q0162; Q9967; 81003

== ENCOUNTER 2023-09-26 12:50 | Outpatient (CLI) | payer MEDICARE | END 2023-09-26 23:59 | disposition critical access hospital (66) | LOC: EMS 12:50 | DX: I95.9 Hypotension, unspecified (principal); R31.9 Hematuria, unspecified; Z96.0 Presence of urogenital implants; Z79.01 Long term (current) use of anticoagulants | CPT/HCPCS: A0425; A0427 ==

== ENCOUNTER 2023-09-26 13:28 | Inpatient (IN) | payer MEDICARE ==
--- NOTE | 2023-09-26 14:27 | ED Physician Documentation ---
History of Present Illness - Stated complaint Stated Complaint: CATH ISSUE - Chief complaint Chief Complaint: General - History obtained from History obtained from: Patient, Family, EMS - History of Present Illness Timing: Today Pain level max: 0 Pain level now: 0 - Additonal information Additional information: Patient is a 72-year-old male who was seen here about a week ago for hematuria. Catheter was placed. He has an appointment next week with urology. Noted that he was having dark red blood in the catheter again today. He is on Eliquis, but unclear why. 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 His hematology oncology note states that he has a history of atrial fibrillation, atrial flutter, congestive heart failure, Danitza's granulomatosis, diabetes, chronic kidney disease. Review of Systems Constitutional: denies: Fever, Chills Respiratory: denies: Cough GI: denies: Vomiting, Diarrhea Skin: denies: Rash Musculoskeletal: denies: Neck pain, Back pain Neurologic: denies: Headache PD PAST MEDICAL HISTORY - Past Medical History Cardiovascular: Coronary artery disease, Atrial fibrillation Respiratory: None Neuro: None Endocrine/Autoimmune: None, Other GI: GERD, Hemorrhoids : Incontinence, Chronic bladder infection, Frequency HEENT: None, Other Psych: None Musculoskeletal: Fatigue, Other Derm: None, Other - Past Surgical History Past Surgical History: Yes Ortho: Knee replacement HEENT: Cataracts - Present Medications Home Medications: Ambulatory Orders Medication Instructions Recorded Confirmed Apixaban [Eliquis] 1 tab PO DAILY 09/19/23 09/19/23 Cyanocobalamin (Vitamin B-12) 1 cap PO DAILY 09/19/23 09/19/23 [Vitamin B-12] Fluticasone [Flonase] 1 applic INH BID 09/19/23 09/19/23 Lactobacillus Combination No.4 1 cap PO DAILY 09/19/23 09/19/23 [Probiotic] Magnesium Glycinate 1 tab PO DAILY 09/19/23 09/19/23 Melatonin 1 tab PO DAILY 09/19/23 09/19/23 Metoprolol Succinate [Toprol Xl] 0.5 tab PO DAILY 09/19/23 09/19/23 Ofloxacin 0.3% Ophth Drops 1 drops LEFTEYE DAILY 09/19/23 09/19/23 [Ocuflox 0.3% Ophth Drops] Panax, [place]cuadorean Ginsg/B12/Royl 1 cap PO DAILY 09/19/23 09/19/23 [Ginseng Complex Capsule] Pantoprazole [Protonix] 1 tab PO DAILY 09/19/23 09/19/23 Phenazopyridine HCl [Pyridium] 100 mg PO TID PRN #15 tablet 09/19/23 Prednisone [Jazzmine] 1 tab PO DAILY 09/19/23 09/19/23 Zinc Gluconate [Zinc] 1 tab PO DAILY 09/19/23 09/19/23 cephALEXin [Keflex] 500 mg PO TID #20 cap 09/19/23 prednisoLONE 1% OPHTH DROPS [Pred 1 drops LEFTEYE DAILY 09/19/23 09/19/23 Forte 1% Ophth Drops] valACYclovir [Valtrex] 1 tab PO BID 09/19/23 09/19/23 - Allergies Allergies/Adverse Reactions: Allergies Allergy/AdvReac Type Severity Reaction Status Date / Time No Known Drug Allergies Allergy Verified 09/26/23 14:23 - Social History Does the pt smoke?: No Smoking Status: Never smoker Does the pt drink ETOH?: No Does the pt have substance abuse?: No - Immunizations Immunizations are current?: Yes - POLST Patient has POLST: No PD ED PE NORMAL - Vitals Vital signs reviewed: Yes - General General: Alert and oriented X 3, No acute distress - HEENT HEENT: Moist mucous membranes - Neck Neck: Supple, no meningeal sign - Cardiac Cardiac: RRR, Strong equal pulses - Respiratory Respiratory: No respiratory distress, Clear bilaterally - Abdomen Abdomen: Soft, Non tender, Non distended - Derm Derm: Warm and dry - Extremities Extremities: No edema - Neuro Neuro: Alert and oriented X 3 - Psych Psych: Normal mood, Normal affect Results - Vitals Vitals: Vital Signs - 24 hr 09/26/23 14:15 Temperature 37.2 C Heart Rate 81 Respiratory 13 Rate Blood Pressure 93/58 L O2 Saturation 97 Oxygen O2 Source Room air PD Medical Decision Making - ED course Complexity details: considered differential, d/w patient ED course: Patient with hematuria. Labs were ordered. These are pending at time of signout. Also ordered bladder irrigation to be performed. Patient will be signed out to Dr. Queen for final disposition following up on laboratory findings. Suspect that the patient will be able to hold his Eliquis as he is having continued bleeding with the catheter. This document was made in part using voice recognition software. While efforts are made to proofread this document, sound alike and grammatical errors may occur. Departure - Departure Clinical Impression: Gross hematuria Condition: Stable Forms: PCP List
[2023-09-26] MEDS: SODIUM CHLORIDE 0.9% 1,000 ML IV STA (14:35)
[2023-09-26 15:24] LABS: BASOPHILS % (AUTO) 0.3 %; EOSINOPHILS % (AUTO) 0.3 %; HCT - HEMATOCRIT 24.1 % (42.0-52.0); LYMPHOCYTES # (AUTO) 0.3 10^3/uL (1.5-3.5); LYMPHOCYTES % (AUTO) 5.2 %; MEAN CORPUSCULAR HEMOGLOBIN 37.6 pg (27.0-31.0); MEAN CORPUSCULAR HGB CONC 33.2 g/dL (32.0-36.0); MEAN CORPUSCULAR VOLUME 113.1 fL (80.0-94.0); MEAN PLATELET VOLUME 9.1 fL (7.4-11.4); MONOCYTES # (AUTO) 0.4 10^3/uL (0.0-1.0); MONOCYTES % (AUTO) 6.6 %; NEUTROPHILS # (AUTO) 5.1 10^3/uL (1.5-6.6); NEUTROPHILS % (AUTO) 86.3 %; PLT - PLATELET COUNT 83 10^3/uL (130-450); RED BLOOD COUNT 2.13 10^6/uL (4.70-6.10); RED CELL DISTRIBUTION WIDTH 13.2 % (12.0-15.0); WHITE BLOOD COUNT 5.9 x10^3/uL (4.8-10.8)
[2023-09-26 15:26] LABS: SLIDE REVIEW? Indicated
[2023-09-26 15:33] LABS: BILIRUBIN,URINE NEGATIVE (NEGATIVE); GLUCOSE, URINE (UA) 250 mg/dL (NEGATIVE); KETONES,URINE (UA) NEGATIVE (NEGATIVE); LEUKOCYTE ESTERASE, URINE NEGATIVE (NEGATIVE); NITRITE,URINE POSITIVE (NEGATIVE); OCCULT BLOOD,URINE LARGE (NEGATIVE); PROTEIN,URINE >=300 mg/dL (NEGATIVE); UROBILINOGEN,URINE 1 (NORMAL) E.U./dL (NORMAL)
[2023-09-26 15:37] LABS: CLARITY,URINE BLOODY (CLEAR); RBC,URINE TNTC /HPF (0-5); SQUAMOUS EPITHELIAL CELL,UR NONE SEEN (<= Few); WBC,URINE 0-3 /HPF (0-3)
[2023-09-26 15:38] LABS: ALBUMIN/GLOBULIN RATIO 1.2 (1.0-2.2); BILIRUBIN,TOTAL 0.4 mg/dL (0.2-1.0); CALCIUM 8.2 mg/dL (8.5-10.3); CREATININE 1.7 mg/dL (0.6-1.3); POTASSIUM 4.2 mmol/L (3.5-4.5); TOTAL PROTEIN 5.6 g/dL (6.4-8.9)
[2023-09-26 15:38] LABS: BACTERIA,URINE None Seen /HPF (None Seen)
[2023-09-26 15:44] LABS: PLATELET MORPHOLOGY NORMAL APPEARANCE (NORMAL)
[2023-09-26 15:45] LABS: PLATELET ESTIMATE, MANUAL DECREASED (<130,000) (NORMAL)
--- NOTE | 2023-09-26 15:48 | ED Physician Documentation ---
ED Addendum - Addendum Addendum: 09/26/23 15:48 Care turned over to me by Dr. Kessler at 3 PM. Briefly this is a 72-year-old gentleman who is on Eliquis, has a history of stem cell transplant, A-fib, CHF, heart failure Danitza's granulomatosis, diabetes, and CKD. He was seen by Dr. Jacobs on the ninth of this month for dysuria and had bloody urine and a CT showing left hydroureter and hydronephrosis without a stone and ended up having a Juarez placed. He returns today with hematuria enough that he was reportedly hypotensive prehospital with a systolic in the 70s. CBC is notable for a hemoglobin of 8, it was 10.3 a week ago. Creatinine is 1.7, same as it was a week ago but that is above his baseline which tends to vary between 1.0 and 1.3 recently. Urine is bloody. Says positive nitrite, but this is likely spurious given how bloody it is and the lack of white cells. 09/26/23 16:[address] Salazar who will see in consult, recommends CBI and holding of his anticoagulants and spoke with Dr. Powers, hospitalist for admission. Diagnosis: 1. Gross hematuria 2. Hypotension 3. Anemia 4. Anticoagulated Condition: Stable Disposition: Admitted to the hospital
[2023-09-26 15:55] LABS: INR 1.2 (0.8-1.2); PT - PROTHROMBIN TIME 12.8 secs (9.9-12.6)
[2023-09-26 16:02] LABS: PARTIAL THROMBOPLASTIN TIME 26.6 secs (24.9-33.3)
[2023-09-26] MEDS ORDERED: ACETAMINOPHEN 325 MG TABLET PO PRN (16:05)
[2023-09-26] MEDS: SODIUM CHLORIDE 0.9% 1,000 ML IV SCH (16:44)
[2023-09-26] MEDS: SODIUM CHLORIDE FLUSH 0.9% 10 ML SYRINGE IVP SCH (16:44)
--- NOTE | 2023-09-26 17:15 | HISTORY & PHYSICAL EXAMINATION ---
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 Patient reportedly presented to the ED a week ago with complaints of hematuria at which point a catheter was placed. Patient reports that he began having dark red blood again today with dizziness. In the ED, CBC was performed which revealed a hemoglobin of 8.0 which was down from 10.3 on 09/18. Case was discussed with urology who recommended admission. During my evaluation patient denied any fever or chills. He stated he had just completed a course of Keflex for suspected UTI. He denies any abdominal pain. Denies any chest pain. Denies any shortness of breath. Patient is a full code. Case was discussed with urology who recommended CBI and holding his anticoagulation. No intervention is planned. History - Past Medical History Cardiovascular: reports: Coronary artery disease, Atrial fibrillation Respiratory: reports: None Neuro: reports: None Endocrine/Autoimmune: reports: None, Other GI: reports: GERD, Hemorrhoids : reports: Incontinence, Chronic bladder infection, Frequency HEENT: reports: None, Other Psych: reports: None Musculoskeletal: reports: Fatigue, Other Derm: reports: None, Other MRSA Hx?: No - Past Surgical History Ortho: reports: Knee replacement HEENT: reports: Cataracts - Family & Social History Family History: Mother: , Father: Family History Comment/Other: Patient report his father from cancer at age 70. His mother from major heart problem at age 70 as well. Living Situation: Alone, Other (has close friend from [place] who can come help him ) Social History Notes: Patient report he never smoke, he has no alcohol or drug issue - Substance History Use: Uses substance without health or social issues: NONE - POLST Patient has POLST: No Meds/Allgy - Home Medications Home Medications: Ambulatory Orders Medication Instructions Recorded Confirmed Apixaban [Eliquis] 1 tab PO DAILY 09/19/23 09/19/23 Cyanocobalamin (Vitamin B-12) 1 cap PO DAILY 09/19/23 09/19/23 [Vitamin B-12] Fluticasone [Flonase] 1 applic INH BID 09/19/23 09/19/23 Lactobacillus Combination No.4 1 cap PO DAILY 09/19/23 09/19/23 [Probiotic] Magnesium Glycinate 1 tab PO DAILY 09/19/23 09/19/23 Melatonin 1 tab PO DAILY 09/19/23 09/19/23 Metoprolol Succinate [Toprol Xl] 0.5 tab PO DAILY 09/19/23 09/19/23 Ofloxacin 0.3% Ophth Drops 1 drops LEFTEYE DAILY 09/19/23 09/19/23 [Ocuflox 0.3% Ophth Drops] Panax, [place]yan Ginsg/B12/Royl 1 cap PO DAILY 09/19/23 09/19/23 [Ginseng Complex Capsule] Pantoprazole [Protonix] 1 tab PO DAILY 09/19/23 09/19/23 Phenazopyridine HCl [Pyridium] 100 mg PO TID PRN #15 tablet 09/19/23 Prednisone [Jazzmine] 1 tab PO DAILY 09/19/23 09/19/23 Zinc Gluconate [Zinc] 1 tab PO DAILY 09/19/23 09/19/23 cephALEXin [Keflex] 500 mg PO TID #20 cap 09/19/23 prednisoLONE 1% OPHTH DROPS [Pred 1 drops LEFTEYE DAILY 09/19/23 09/19/23 Forte 1% Ophth Drops] valACYclovir [Valtrex] 1 tab PO BID 09/19/23 09/19/23 - Allergies Allergies/Adverse Reactions: Allergies Allergy/AdvReac Type Severity Reaction Status Date / Time No Known Drug Allergies Allergy Verified 09/26/23 14:23 Review of Systems - Genitourinary Genitourinary: reports: Hematuria - All Other Systems All Other Systems: reports: Reviewed and negative Exam - Vital Signs Vital Signs: Vital Signs x48h Temp Pulse Resp BP Pulse Ox 09/26/23 16:59 79 12 110/67 96 09/26/23 14:15 37.2 C 81 13 93/58 L 97 - Physical Exam General Appearance: positive: No acute distress, Alert Respiratory: positive: Chest non-tender, No respiratory distress, Breath sounds nml Cardiovascular: positive: Regular rate & rhythm, No murmur, No gallop Abdomen: positive: Non-tender, No organomegaly, Nml bowel sounds, No distention Conclusion/Plan - Problem List (1) Gross hematuria Conclusion/Plan: --Case discussed with urology. Recommend holding Eliquis and starting CBI at low rate. No immediate plan for surgical intervention. -- Will start patient on CBI. -- Holding his home Eliquis. -- No immediate plans for intervention. -- Will trend his hemoglobin and transfuse if under 7. --Exact etiology of hematuria unknown, will start him on IV ceftriaxone due to concern for UTI. (2) Acute kidney injury Conclusion/Plan: --Baseline creatinine near 1. Will start him on IV NS. (3) Diabetes Conclusion/Plan: --Started on SSI. (4) A-fib Conclusion/Plan: --Resume metoprolol when reconciled. --Holding home Eliquis due to hematuria. (5) Pulmonary hemorrhage Conclusion/Plan: --Resume prednisone when medications reconciled. (6) GERD (gastroesophageal reflux disease) Conclusion/Plan: --Continue Protonix. - Lab Results Fish Bones: 09/26/23 15:15 09/26/23 15:15
--- NOTE | 2023-09-26 17:52 | CONSULTATION NOTE ---
Referring Provider Name of Referring Provider:: Dr Crews Consult Date: 09/26/23 Chief Complaint - Chief Complaint Chief Complaint: hematuria History of Present Illness - Admitted From Admitted From:: ER - History Obtained From Records Reviewed: Nelly FUNEZ History obtained from: patient and partner Exam Limitations: none - History of Present Illness HPI Comment/Other: Koko a 72-year-old male with a complex medical history including a significant AML requiring autologous stem cell transplant, pancytopenia, atrial fibrillation on Eliquis, congestive heart failure. He is known to me after being seen about 8 months ago with left-sided testicular pain and a small mass which was a transient inflammatory issue and resolved spontaneously. He has seen urology at other locations including [facility] where he states he had a flexible cystoscopy about 3 years ago. He denies prior gross hematuria. 1 week ago he presented with gross hematuria and difficulty urinating and a catheter was placed. He comes in today with a combination of issues including: Continued and worsening hematuria, severe weakness and fatigue and low blood pressure checked at home with systolics in the 70s. Here in the ER he was fluid resuscitated with an immediate and significant improvement in his vitals at the bedside now his blood pressure is 114/70 and he is not tachycardic with a heart rate of 80. He had some nasal irrigations performed by nursing before his examination today and his urine has cleared up quite well. He denies fever or chills at home. He has baseline hemoglobin is around 10 and today is 8. A CT scan performed last week showed left-sided hydroureteronephrosis to just proximal to the bladder. There were some calcification seen in the bladder and concern was made about a recently passed kidney stone.I reviewed his CT scan from a year and a half ago which showed a similar calcification though smaller in his bladder near the dome. He did not have any hydroureteronephrosis at that time He denies flank pain Seen today in the ER with his partner present History - Past Medical History Cardiovascular: reports: Coronary artery disease, Atrial fibrillation Respiratory: reports: None Neuro: reports: None Endocrine/Autoimmune: reports: None, Other GI: reports: GERD, Hemorrhoids : reports: Incontinence, Chronic bladder infection, Frequency HEENT: reports: None, Other Psych: reports: None Musculoskeletal: reports: Fatigue, Other Derm: reports: None, Other MRSA Hx?: No - Past Surgical History Ortho: reports: Knee replacement HEENT: reports: Cataracts - Family & Social History Family History: Mother: , Father: Family History Comment/Other: Patient report his father from cancer at age 70. His mother from major heart problem at age 70 as well. Living Situation: Alone, Other (has close friend from [employer] who can come help him ) Social History Notes: Patient report he never smoke, he has no alcohol or drug issue - Substance History Use: Uses substance without health or social issues: NONE - POLST Patient has POLST: No Meds/Allgy - Home Medications Home Medications: Ambulatory Orders Medication Instructions Recorded Confirmed Apixaban [Eliquis] 1 tab PO DAILY 09/19/23 09/19/23 Cyanocobalamin (Vitamin B-12) 1 cap PO DAILY 09/19/23 09/19/23 [Vitamin B-12] Fluticasone [Flonase] 1 applic INH BID 09/19/23 09/19/23 Lactobacillus Combination No.4 1 cap PO DAILY 09/19/23 09/19/23 [Probiotic] Magnesium Glycinate 1 tab PO DAILY 09/19/23 09/19/23 Melatonin 1 tab PO DAILY 09/19/23 09/19/23 Metoprolol Succinate [Toprol Xl] 0.5 tab PO DAILY 09/19/23 09/19/23 Ofloxacin 0.3% Ophth Drops 1 drops LEFTEYE DAILY 09/19/23 09/19/23 [Ocuflox 0.3% Ophth Drops] Panax, [place] Ginsg/B12/Royl 1 cap PO DAILY 09/19/23 09/19/23 [Ginseng Complex Capsule] Pantoprazole [Protonix] 1 tab PO DAILY 09/19/23 09/19/23 Phenazopyridine HCl [Pyridium] 100 mg PO TID PRN #15 tablet 09/19/23 Prednisone [Jazzmine] 1 tab PO DAILY 09/19/23 09/19/23 Zinc Gluconate [Zinc] 1 tab PO DAILY 09/19/23 09/19/23 cephALEXin [Keflex] 500 mg PO TID #20 cap 09/19/23 prednisoLONE 1% OPHTH DROPS [Pred 1 drops LEFTEYE DAILY 09/19/23 09/19/23 Forte 1% Ophth Drops] valACYclovir [Valtrex] 1 tab PO BID 09/19/23 09/19/23 - Allergies Allergies/Adverse Reactions: Allergies Allergy/AdvReac Type Severity Reaction Status Date / Time No Known Drug Allergies Allergy Verified 09/26/23 14:23 Exam - Vital Signs Reviewed Vital Signs: Yes Vital Signs: Vital Signs x48h Temp Pulse Resp BP Pulse Ox 09/26/23 16:59 79 12 110/67 96 09/26/23 14:15 37.2 C 81 13 93/58 L 97 - Physical Exam General Appearance: positive: No acute distress Eyes Bilateral: positive: Other (left eye patch) Abdomen: positive: Non-tender, Other (22 Kazakh three-way Juarez catheter in place not on continuous bladder irrigation. Cath was manually irrigated by myself with 120 cc of saline. He has no active bleeding. 2 tiny clots were removed but his urine immediately cleared.) Conclusion and Plan - Lab Results Laboratory Results 09/26/23 15:15: PT 12.8 H, INR 1.2, APTT 26.6 09/26/23 15:15: Sodium 135, Potassium 4.2, Chloride 107, Carbon Dioxide 22, Anion Gap 6.0, BUN 29 H, Creatinine 1.7 H, Estimated GFR (MDRD) 40 L, Glucose 125 H, Calcium 8.2 L, Total Bilirubin 0.4, AST 12, ALT 17, Alkaline Phosphatase 74, Total Protein 5.6 L, Albumin 3.0 L, Globulin 2.6, Albumin/Globulin Ratio 1.2, Lipase 16 09/26/23 15:15: WBC 5.9, RBC 2.13 L, Hgb 8.0 L, Hct 24.1 L, MCV 113.1 H, MCH 37.6 H, MCHC 33.2, RDW 13.2, Plt Count 83 L, MPV 9.1, Neut # (Auto) 5.1, Lymph # (Auto) 0.3 L, [place] # (Auto) 0.4, Eos # (Auto) 0.0, Baso # (Auto) 0.0, Absolute Nucleated RBC 0.00, Nucleated RBC % 0.0, Manual Slide Review Indicated, Platelet Estimate DECREASED (<130,000), Platelet Morphology NORMAL APPEARANCE, RBC Morph Micro Appear 2+ MACROCYTOSIS 09/26/23 15:08: Urine Color RED/BLOODY, Urine Clarity BLOODY, Urine pH 6.0, Ur Specific [place] 1.025, Urine Protein >=300 H, Urine Glucose (UA) 250 H, Urine Ketones NEGATIVE, Urine Occult Blood LARGE H, Urine Nitrite POSITIVE H, Urine Bilirubin NEGATIVE, Urine Urobilinogen 1 (NORMAL), Ur Leukocyte Esterase NEGATIVE, Urine RBC TNTC H, Urine WBC 0-3, Ur Squamous Epith Cells NONE SEEN, Urine Bacteria None Seen, Ur Microscopic Review INDICATED, Urine Culture Comments INDICATED - Diagnostic Imaging Results Diagnostic Imaging Results: positive: Read independently - Diagnosis Diagnosis: Gross hematuria. Left hydroureteronephrosis. bladder calcification - Consultation Note Consultation Note: 72-year-old male with complex medical issue including autologous dialysis stem cell transplant and resulting pancytopenia on Eliquis for atrial fibrillation now with gross hematuria which is easily resolved with light irrigation in the setting of worsening anemia, hypotension. Incidentally found left hydroureteronephrosis and bladder calcification which may be an old finding for the calcification - Plan Plan: Continue 22 [place] three-way Juarez catheter. This should be irrigated with gentle continuous bladder irrigation with normal saline. If any clotting and inability to pass urine occurrence then the irrigation should be stopped. The main port to be manually irrigated with a 60 cc catheter tip syringe to pull out any clots. Once no more clots can be removed then irrigation can be restarted. He should start on empiric ceftriaxone therapy for now pending urine culture results. Recommend checking blood counts at least once a day consider transfusion if hemoglobin less than 7 His left hydroureteronephrosis and bladder calcification are strongly indicative of further bladder pathology. I suspect he may have a bladder cancer but hopefully given the fact that he had a negative cystoscopy 3 years ago this is just an incidental finding. No acute intervention required. He can eat. I will follow along. He should stop taking anticoagulation medications permanently. He should not be discharged on Eliquis. If the decision is made to keep him on Eliquis please discuss with me first He already has an appointment to see me next week for a voiding trial. Will likely keep the catheter in until then but we may change her mind as the days progressed Contact me with any issues or concerns
[2023-09-26 18:32] LABS: HCT - HEMATOCRIT 25.1 % (42.0-52.0); HGB - HEMOGLOBIN 8.3 g/dL (14.0-18.0)
[2023-09-26] MEDS: INSULIN LISPRO 300 UNIT/3 ML PEN SUBQ SCH (21:05)
[2023-09-26] MEDS: cefTRIAXone 1 GM in SODIUM CHLORIDE 0.9% MINIBAG 100 ML IV ONE (23:00)
[2023-09-26] MEDS ORDERED: cefTRIAXone 1 GM VIAL ONE (23:52)
[2023-09-27] MEDS: HYDROmorphone 0.5 MG/0.5 ML SYRINGE IVP PRN (00:27)
[2023-09-27 00:31] LABS: HCT - HEMATOCRIT 26.6 % (42.0-52.0); HGB - HEMOGLOBIN 9.1 g/dL (14.0-18.0)
[2023-09-27 06:13] LABS: BASOPHILS % (AUTO) 0.2 %; EOSINOPHILS # (AUTO) 0.1 10^3/uL (0.0-0.7); EOSINOPHILS % (AUTO) 0.9 %; HGB - HEMOGLOBIN 7.7 g/dL (14.0-18.0); LYMPHOCYTES # (AUTO) 0.5 10^3/uL (1.5-3.5); LYMPHOCYTES % (AUTO) 9.3 %; MEAN CORPUSCULAR HEMOGLOBIN 37.9 pg (27.0-31.0); MEAN CORPUSCULAR HGB CONC 32.1 g/dL (32.0-36.0); MEAN CORPUSCULAR VOLUME 118.2 fL (80.0-94.0); MEAN PLATELET VOLUME 9.7 fL (7.4-11.4); MONOCYTES # (AUTO) 0.5 10^3/uL (0.0-1.0); MONOCYTES % (AUTO) 9.1 %; NEUTROPHILS # (AUTO) 4.2 10^3/uL (1.5-6.6); NEUTROPHILS % (AUTO) 79.6 %; PLT - PLATELET COUNT 83 10^3/uL (130-450); RED BLOOD COUNT 2.03 10^6/uL (4.70-6.10); RED CELL DISTRIBUTION WIDTH 13.3 % (12.0-15.0); WHITE BLOOD COUNT 5.3 x10^3/uL (4.8-10.8)
[2023-09-27 06:21] LABS: SLIDE REVIEW? Indicated
[2023-09-27 06:30] LABS: CALCIUM 8.1 mg/dL (8.5-10.3); CREATININE 1.7 mg/dL (0.6-1.3); POTASSIUM 4.1 mmol/L (3.5-4.5)
[2023-09-27 06:51] LABS: PLATELET ESTIMATE, MANUAL DECREASED (<130,000) (NORMAL); RBC MORPHOLOGY (MULTIPLE) 2+ MACROCYTOSIS (NORMAL)
--- NOTE | 2023-09-27 08:21 | PROVIDER PROGRESS NOTE ---
Subjective - General Admit Date: 09/26/23 - Review of Systems General: positive: Other (Overnight he had occasional blockages of his catheter. This was extremely painful for him. Manual irrigation fixed it. No other complaints) All Other Systems: positive: Reviewed and negative Objective - Patient Data Reviewed Vital Signs: Yes Vital Signs: Vital Signs x48h Temp Pulse Resp BP Pulse Ox 09/27/23 05:11 37.0 C 92 16 126/71 93 Weight: Weight 09/25/23 09/26/23 09/27/23 23:59 23:59 23:59 Weight (kg) 68.5 kg Intake & Output: Intake and Output Totals x24h 09/25/23 09/26/23 09/27/23 23:59 23:59 23:59 Intake Total 20273 47586 Output Total 41704 63242 Balance 2175 -2410 - Lab Results Lab Results: 09/27/23 05:27 09/27/23 05:27 Other Lab Results: Lab Results x24hrs 09/27/23 09/27/23 09/27/23 Range/Units 05:27 05:27 00:25 WBC 5.3 (4.8-10.8) x10^3/uL RBC 2.03 L (4.70-6.10) 10^6/uL Hgb 7.7 L 9.1 L (14.0-18.0) g/dL Hct 24.0 L 26.6 L (42.0-52.0) % MCV 118.2 H (80.0-94.0) fL MCH 37.9 H (27.0-31.0) pg MCHC 32.1 (32.0-36.0) g/dL RDW 13.3 (12.0-15.0) % Plt Count 83 L (130-450) 10^3/uL MPV 9.7 (7.4-11.4) fL Neut # (Auto) 4.2 (1.5-6.6) 10^3/uL Lymph # (Auto) 0.5 L (1.5-3.5) 10^3/uL [place] # (Auto) 0.5 (0.0-1.0) 10^3/uL Eos # (Auto) 0.1 (0.0-0.7) 10^3/uL Baso # (Auto) 0.0 (0.0-0.1) 10^3/uL Absolute Nucleated RBC 0.00 x10^3/uL Nucleated RBC % 0.0 /100WBC Manual Slide Review Indicated Platelet Estimate DECREASED (<130,000) (NORMAL) Platelet Morphology (NORMAL) RBC Morph Micro Appear 2+ MACROCYTOSIS (NORMAL) PT (9.9-12.6) secs INR (0.8-1.2) APTT (24.9-33.3) secs Sodium 135 (135-145) mmol/L Potassium 4.1 (3.5-4.5) mmol/L Chloride 108 (101-111) mmol/L Carbon Dioxide 19 L (21-32) mmol/L Anion Gap 8.0 (6-13) BUN 24 H (6-20) mg/dL Creatinine 1.7 H (0.6-1.3) mg/dL Estimated GFR (MDRD) 40 L (>89) Glucose 97 (74-104) mg/dL POC Whole Bld Glucose (70 - 100) mg/dL Calcium 8.1 L (8.5-10.3) mg/dL Total Bilirubin (0.2-1.0) mg/dL AST (10-42) IU/L ALT (10-60) IU/L Alkaline Phosphatase (42-121) IU/L Total Protein (6.4-8.9) g/dL Albumin (3.2-5.5) g/dL Globulin (2.1-4.2) g/dL Albumin/Globulin Ratio (1.0-2.2) Lipase (11-82) U/L Urine Color Urine Clarity (CLEAR) Urine pH (5.0-7.5) PH Ur Specific [place] (1.002-1.030) Urine Protein (NEGATIVE) mg/dL Urine Glucose (UA) (NEGATIVE) mg/dL Urine Ketones (NEGATIVE) mg/dL Urine Occult Blood (NEGATIVE) Urine Nitrite (NEGATIVE) Urine Bilirubin (NEGATIVE) Urine Urobilinogen (NORMAL) E.U./dL Ur Leukocyte Esterase (NEGATIVE) Urine RBC (0-5) /HPF Urine WBC (0-3) /HPF Ur Squamous Epith Cells (<= Few) Urine Bacteria (None Seen) /HPF Ur Microscopic Review Urine Culture Comments Blood Type Antibody Screen 09/26/23 09/26/23 09/26/23 Range/Units 21:34 18:24 18:24 WBC (4.8-10.8) x10^3/uL RBC (4.70-6.10) 10^6/uL Hgb 8.3 L (14.0-18.0) g/dL Hct 25.1 L (42.0-52.0) % MCV (80.0-94.0) fL MCH (27.0-31.0) pg MCHC (32.0-36.0) g/dL RDW (12.0-15.0) % Plt Count (130-450) 10^3/uL MPV (7.4-11.4) fL Neut # (Auto) (1.5-6.6) 10^3/uL Lymph # (Auto) (1.5-3.5) 10^3/uL [place] # (Auto) (0.0-1.0) 10^3/uL Eos # (Auto) (0.0-0.7) 10^3/uL Baso # (Auto) (0.0-0.1) 10^3/uL Absolute Nucleated RBC x10^3/uL Nucleated RBC % /100WBC Manual Slide Review Platelet Estimate (NORMAL) Platelet Morphology (NORMAL) RBC Morph Micro Appear (NORMAL) PT (9.9-12.6) secs INR (0.8-1.2) APTT (24.9-33.3) secs Sodium (135-145) mmol/L Potassium (3.5-4.5) mmol/L Chloride (101-111) mmol/L Carbon Dioxide (21-32) mmol/L Anion Gap (6-13) BUN (6-20) mg/dL Creatinine (0.6-1.3) mg/dL Estimated GFR (MDRD) (>89) Glucose (74-104) mg/dL POC Whole Bld Glucose 98 (70 - 100) mg/dL Calcium (8.5-10.3) mg/dL Total Bilirubin (0.2-1.0) mg/dL AST (10-42) IU/L ALT (10-60) IU/L Alkaline Phosphatase (42-121) IU/L Total Protein (6.4-8.9) g/dL Albumin (3.2-5.5) g/dL Globulin (2.1-4.2) g/dL Albumin/Globulin Ratio (1.0-2.2) Lipase (11-82) U/L Urine Color Urine Clarity (CLEAR) Urine pH (5.0-7.5) PH Ur Specific [place] (1.002-1.030) Urine Protein (NEGATIVE) mg/dL Urine Glucose (UA) (NEGATIVE) mg/dL Urine Ketones (NEGATIVE) mg/dL Urine Occult Blood (NEGATIVE) Urine Nitrite (NEGATIVE) Urine Bilirubin (NEGATIVE) Urine Urobilinogen (NORMAL) E.U./dL Ur Leukocyte Esterase (NEGATIVE) Urine RBC (0-5) /HPF Urine WBC (0-3) /HPF Ur Squamous Epith Cells (<= Few) Urine Bacteria (None Seen) /HPF Ur Microscopic Review Urine Culture Comments Blood Type AB POSITIVE Antibody Screen NEGATIVE 09/26/23 09/26/23 09/26/23 Range/Units 15:15 15:15 15:15 WBC 5.9 (4.8-10.8) x10^3/uL RBC 2.13 L (4.70-6.10) 10^6/uL Hgb 8.0 L (14.0-18.0) g/dL Hct 24.1 L (42.0-52.0) % MCV 113.1 H (80.0-94.0) fL MCH 37.6 H (27.0-31.0) pg MCHC 33.2 (32.0-36.0) g/dL RDW 13.2 (12.0-15.0) % Plt Count 83 L (130-450) 10^3/uL MPV 9.1 (7.4-11.4) fL Neut # (Auto) 5.1 (1.5-6.6) 10^3/uL Lymph # (Auto) 0.3 L (1.5-3.5) 10^3/uL [place] # (Auto) 0.4 (0.0-1.0) 10^3/uL Eos # (Auto) 0.0 (0.0-0.7) 10^3/uL Baso # (Auto) 0.0 (0.0-0.1) 10^3/uL Absolute Nucleated RBC 0.00 x10^3/uL Nucleated RBC % 0.0 /100WBC Manual Slide Review Indicated Platelet Estimate DECREASED (<130,000) (NORMAL) Platelet Morphology NORMAL APPEARANCE (NORMAL) RBC Morph Micro Appear 2+ MACROCYTOSIS (NORMAL) PT 12.8 H (9.9-12.6) secs INR 1.2 (0.8-1.2) APTT 26.6 (24.9-33.3) secs Sodium 135 (135-145) mmol/L Potassium 4.2 (3.5-4.5) mmol/L Chloride 107 (101-111) mmol/L Carbon Dioxide 22 (21-32) mmol/L Anion Gap 6.0 (6-13) BUN 29 H (6-20) mg/dL Creatinine 1.7 H (0.6-1.3) mg/dL Estimated GFR (MDRD) 40 L (>89) Glucose 125 H (74-104) mg/dL POC Whole Bld Glucose (70 - 100) mg/dL Calcium 8.2 L (8.5-10.3) mg/dL Total Bilirubin 0.4 (0.2-1.0) mg/dL AST 12 (10-42) IU/L ALT 17 (10-60) IU/L Alkaline Phosphatase 74 (42-121) IU/L Total Protein 5.6 L (6.4-8.9) g/dL Albumin 3.0 L (3.2-5.5) g/dL Globulin 2.6 (2.1-4.2) g/dL Albumin/Globulin Ratio 1.2 (1.0-2.2) Lipase 16 (11-82) U/L Urine Color Urine Clarity (CLEAR) Urine pH (5.0-7.5) PH Ur Specific [place] (1.002-1.030) Urine Protein (NEGATIVE) mg/dL Urine Glucose (UA) (NEGATIVE) mg/dL Urine Ketones (NEGATIVE) mg/dL Urine Occult Blood (NEGATIVE) Urine Nitrite (NEGATIVE) Urine Bilirubin (NEGATIVE) Urine Urobilinogen (NORMAL) E.U./dL Ur Leukocyte Esterase (NEGATIVE) Urine RBC (0-5) /HPF Urine WBC (0-3) /HPF Ur Squamous Epith Cells (<= Few) Urine Bacteria (None Seen) /HPF Ur Microscopic Review Urine Culture Comments Blood Type Antibody Screen 09/26/23 Range/Units 15:08 WBC (4.8-10.8) x10^3/uL RBC (4.70-6.10) 10^6/uL Hgb (14.0-18.0) g/dL Hct (42.0-52.0) % MCV (80.0-94.0) fL MCH (27.0-31.0) pg MCHC (32.0-36.0) g/dL RDW (12.0-15.0) % Plt Count (130-450) 10^3/uL MPV (7.4-11.4) fL Neut # (Auto) (1.5-6.6) 10^3/uL Lymph # (Auto) (1.5-3.5) 10^3/uL [place] # (Auto) (0.0-1.0) 10^3/uL Eos # (Auto) (0.0-0.7) 10^3/uL Baso # (Auto) (0.0-0.1) 10^3/uL Absolute Nucleated RBC x10^3/uL Nucleated RBC % /100WBC Manual Slide Review Platelet Estimate (NORMAL) Platelet Morphology (NORMAL) RBC Morph Micro Appear (NORMAL) PT (9.9-12.6) secs INR (0.8-1.2) APTT (24.9-33.3) secs Sodium (135-145) mmol/L Potassium (3.5-4.5) mmol/L Chloride (101-111) mmol/L Carbon Dioxide (21-32) mmol/L Anion Gap (6-13) BUN (6-20) mg/dL Creatinine (0.6-1.3) mg/dL Estimated GFR (MDRD) (>89) Glucose (74-104) mg/dL POC Whole Bld Glucose (70 - 100) mg/dL Calcium (8.5-10.3) mg/dL Total Bilirubin (0.2-1.0) mg/dL AST (10-42) IU/L ALT (10-60) IU/L Alkaline Phosphatase (42-121) IU/L Total Protein (6.4-8.9) g/dL Albumin (3.2-5.5) g/dL Globulin (2.1-4.2) g/dL Albumin/Globulin Ratio (1.0-2.2) Lipase (11-82) U/L Urine Color RED/BLOODY Urine Clarity BLOODY (CLEAR) Urine pH 6.0 (5.0-7.5) PH Ur Specific [place] 1.025 (1.002-1.030) Urine Protein >=300 H (NEGATIVE) mg/dL Urine Glucose (UA) 250 H (NEGATIVE) mg/dL Urine Ketones NEGATIVE (NEGATIVE) mg/dL Urine Occult Blood LARGE H (NEGATIVE) Urine Nitrite POSITIVE H (NEGATIVE) Urine Bilirubin NEGATIVE (NEGATIVE) Urine Urobilinogen 1 (NORMAL) (NORMAL) E.U./dL Ur Leukocyte Esterase NEGATIVE (NEGATIVE) Urine RBC TNTC H (0-5) /HPF Urine WBC 0-3 (0-3) /HPF Ur Squamous Epith Cells NONE SEEN (<= Few) Urine Bacteria None Seen (None Seen) /HPF Ur Microscopic Review INDICATED Urine Culture Comments INDICATED Blood Type Antibody Screen - Current Medications Current Medications: Current Medications Generic Name Dose Route Start Last Admin Trade Name Freq PRN Reason Stop Dose Admin Hydromorphone HCl 0.5 mg 09/26/23 16:05 09/27/23 08:08 Hydromorphone 0.5 Mg/0.5 Ml Syringe IVP 0.5 mg Q2H PRN Administration Pain 8 to 10 Sodium Chloride 1,000 mls @ 100 mls/hr 09/26/23 17:00 09/27/23 04:26 Normal Saline 0.9% IV 09/27/23 10:59 100 mls/hr .Q10H [id number] Administration Insulin Human Lispro 1 - 5 unit 09/26/23 21:00 09/27/23 08:09 Insulin Lispro 300 Unit/3 Ml Pen SUBQ Not Given 0800,1200,1700,2100 [facility] Protocol Sodium Chloride 10 ml 09/26/23 17:00 09/27/23 08:10 Sodium Chloride Flush 0.9% 10 Ml Syringe IVP Not Given 0100,0900,1700 [facility] - Physical Exam General Appearance: positive: No acute distress, Other (22 [place] three-way Juarez catheter in place draining red-tinged translucent urine with occasional small clots. On continuous bladder irrigation) Comments/Other: Vitals improved overnight, less tachycardic and hypotension resolved. He continues to have positive hematuria. His hemoglobin is roughly stable at 7.7 down from 8. Concerningly his kidney function remains elevated at 1.7 creatinine which is above his baseline of 1-1.1 ABX Reporting Has patient been on IV antibiotics over the past 48 hours?: Yes Impression/Plan - Problem List Problem List: 72-year-old male with complex medical history including AML and stem cell transplant, pancytopenia, now with gross hematuria which has not resolved in the setting of Eliquis for A-fib, new onset BRANDEN with creatinine 1.7 and concern for left hydroureteronephrosis on recent CT scan. Also concern for calcification versus bladder mass on CT scan. Initial hypotension and tachycardia has resolved with hydration. Still having issues with catheter clogging occasionally Plan: I added solifenacin to his medication regimen, side effects were reviewed with patient Continue empiric antibiotic therapy for now Continue bladder irrigation for now I have asked the nurse to reposition his catheter by removing all fluid from the balloon and push the catheter all the way to the penis and then fill the balloon with 30 cc of sterile water. This will help drainage He should n.p.o. at midnight which I ordered. I will add him on for surgery tomorrow for possible cystoscopy, clot evacuation, fulguration of bleeding areas, left retrograde pyelogram and stent placement. The patient states understanding and consents to the above plan
[2023-09-27 08:41] LABS: HCT - HEMATOCRIT 22.5 % (42.0-52.0); HGB - HEMOGLOBIN 7.3 g/dL (14.0-18.0)
[2023-09-27] MEDS: cefTRIAXone 1 GM in SODIUM CHLORIDE 0.9% MINIBAG 100 ML IV SCH (09:09)
[2023-09-27] MEDS: SOLIFENACIN SUCCINATE 5 MG TABLET PO SCH (09:09)
--- NOTE | 2023-09-27 12:16 | PROVIDER PROGRESS NOTE ---
Subjective - Prog Note Date Prog Note Date: 09/27/23 Prog Note Time: 12:15 - Subjective Pt reports feeling: No change Subjective: The patient is a 72-year-old male with a past medical history significant for AML status post stem cell transplant, Danitza's granulomatosis, chronic kidney disease stage III and type 2 diabetes. He has a history of paroxysmal atrial fibrillation and has been on anticoagulation with Eliquis. Of note he is also had a pulmonary hemorrhage while on prednisone in the past. The patient was seen in the emergency room about a week ago with complaints of hematuria. At that point a catheter was placed. He presented to the emergency room with dark red blood and dizziness. Recent CT scan was concerning for left hydroureter nephrosis and also concern for a possible bladder mass versus calcification. In the emergency room he had a hemoglobin of 8.0 which was down from 10.3 on 09/19/2023. Urology was consulted and is seeing the patient. Currently on CBI and scheduled for a cystoscopy and stent placement tomorrow. Overnight last night the patient had multiple clots and the nursing staff was a ble to successfully flush. He states at times he would have severe pain. He has been receiving IV Dilaudid. Currently at the time of my visit he is pain- free. He denies fever or chills. No chest pain or heart palpitations. No nausea vomiting or diarrhea. He does have some pain in the suprapubic area. Currently with Juarez catheter in place. Current Medications - Current Medications Current Medications: Tylenol 650 mg p.o. every 4 hours as needed pain Hydrocodone 5/325 mg 1 p.o. every 4 hours as needed pain Ceftriaxone 1 g daily Hydromorphone 0.5 mg IV every 2 hours as needed severe pain Humalog sliding scale Zofran 4 mg p.o. every 6 hours as needed nausea and bowel Zofran 4 mg IV every 6 hours as needed nausea Vesicare 5 mg p.o. daily Objective - Vital Signs/Intake & Output Vital Signs: Vital Signs x48h Temp Pulse Resp BP BP Pulse Ox 09/27/23 08:00 36.8 C 79 16 118/69 94 09/27/23 05:11 37.0 C 92 16 126/71 93 Intake & Output: Intake & Output 09/24/23 09/25/23 09/26/2317/24 23:59 23:59 23:59 23:59 Intake Total 509312 87014 Output Total 52049 89818 Balance 3473 -74748 - Objective General Appearance: positive: No acute distress (Although he looks weak and as if he feels poorly), Alert, Mild distress Eyes Bilateral: positive: Normal inspection ENT: positive: ENT inspection nml Neck: positive: Nml inspection Respiratory: positive: Chest non-tender, No respiratory distress, Breath sounds nml Cardiovascular: positive: No murmur, No gallop, Tachycardia. negative: Friction rub Abdomen: positive: Non-tender, Nml bowel sounds, Tenderness (Tender to palpation in the suprapubic area) Skin: positive: No rash, Warm, Dry, Pallor Extremities: positive: Non-tender - Lab Results Fish Bones: 09/27/23 08:34 09/27/23 05:27 Other Labs: Lab Results x24hrs 09/27/23 09/27/23 09/27/23 Range/Units 08:34 05:27 05:27 WBC 5.3 (4.8-10.8) x10^3/uL RBC 2.03 L (4.70-6.10) 10^6/uL Hgb 7.3 L 7.7 L (14.0-18.0) g/dL Hct 22.5 L 24.0 L (42.0-52.0) % MCV 118.2 H (80.0-94.0) fL MCH 37.9 H (27.0-31.0) pg MCHC 32.1 (32.0-36.0) g/dL RDW 13.3 (12.0-15.0) % Plt Count 83 L (130-450) 10^3/uL MPV 9.7 (7.4-11.4) fL Neut # (Auto) 4.2 (1.5-6.6) 10^3/uL Lymph # (Auto) 0.5 L (1.5-3.5) 10^3/uL [place] # (Auto) 0.5 (0.0-1.0) 10^3/uL Eos # (Auto) 0.1 (0.0-0.7) 10^3/uL Baso # (Auto) 0.0 (0.0-0.1) 10^3/uL Absolute Nucleated RBC 0.00 x10^3/uL Nucleated RBC % 0.0 /100WBC Manual Slide Review Indicated Platelet Estimate DECREASED (<130,000) (NORMAL) Platelet Morphology (NORMAL) RBC Morph Micro Appear 2+ MACROCYTOSIS (NORMAL) PT (9.9-12.6) secs INR (0.8-1.2) APTT (24.9-33.3) secs Sodium 135 (135-145) mmol/L Potassium 4.1 (3.5-4.5) mmol/L Chloride 108 (101-111) mmol/L Carbon Dioxide 19 L (21-32) mmol/L Anion Gap 8.0 (6-13) BUN 24 H (6-20) mg/dL Creatinine 1.7 H (0.6-1.3) mg/dL Estimated GFR (MDRD) 40 L (>89) Glucose 97 (74-104) mg/dL POC Whole Bld Glucose (70 - 100) mg/dL Calcium 8.1 L (8.5-10.3) mg/dL Total Bilirubin (0.2-1.0) mg/dL AST (10-42) IU/L ALT (10-60) IU/L Alkaline Phosphatase (42-121) IU/L Total Protein (6.4-8.9) g/dL Albumin (3.2-5.5) g/dL Globulin (2.1-4.2) g/dL Albumin/Globulin Ratio (1.0-2.2) Lipase (11-82) U/L Urine Color Urine Clarity (CLEAR) Urine pH (5.0-7.5) PH Ur Specific [place] (1.002-1.030) Urine Protein (NEGATIVE) mg/dL Urine Glucose (UA) (NEGATIVE) mg/dL Urine Ketones (NEGATIVE) mg/dL Urine Occult Blood (NEGATIVE) Urine Nitrite (NEGATIVE) Urine Bilirubin (NEGATIVE) Urine Urobilinogen (NORMAL) E.U./dL Ur Leukocyte Esterase (NEGATIVE) Urine RBC (0-5) /HPF Urine WBC (0-3) /HPF Ur Squamous Epith Cells (<= Few) Urine Bacteria (None Seen) /HPF Ur Microscopic Review Urine Culture Comments Blood Type Antibody Screen 07/17/24 07/16/24 07/16/24 Range/Units 00:25 21:34 18:24 WBC (4.8-10.8) x10^3/uL RBC (4.70-6.10) 10^6/uL Hgb 9.1 L 8.3 L (14.0-18.0) g/dL Hct 26.6 L 25.1 L (42.0-52.0) % MCV (80.0-94.0) fL MCH (27.0-31.0) pg MCHC (32.0-36.0) g/dL RDW (12.0-15.0) % Plt Count (130-450) 10^3/uL MPV (7.4-11.4) fL Neut # (Auto) (1.5-6.6) 10^3/uL Lymph # (Auto) (1.5-3.5) 10^3/uL [place] # (Auto) (0.0-1.0) 10^3/uL Eos # (Auto) (0.0-0.7) 10^3/uL Baso # (Auto) (0.0-0.1) 10^3/uL Absolute Nucleated RBC x10^3/uL Nucleated RBC % /100WBC Manual Slide Review Platelet Estimate (NORMAL) Platelet Morphology (NORMAL) RBC Morph Micro Appear (NORMAL) PT (9.9-12.6) secs INR (0.8-1.2) APTT (24.9-33.3) secs Sodium (135-145) mmol/L Potassium (3.5-4.5) mmol/L Chloride (101-111) mmol/L Carbon Dioxide (21-32) mmol/L Anion Gap (6-13) BUN (6-20) mg/dL Creatinine (0.6-1.3) mg/dL Estimated GFR (MDRD) (>89) Glucose (74-104) mg/dL POC Whole Bld Glucose 98 (70 - 100) mg/dL Calcium (8.5-10.3) mg/dL Total Bilirubin (0.2-1.0) mg/dL AST (10-42) IU/L ALT (10-60) IU/L Alkaline Phosphatase (42-121) IU/L Total Protein (6.4-8.9) g/dL Albumin (3.2-5.5) g/dL Globulin (2.1-4.2) g/dL Albumin/Globulin Ratio (1.0-2.2) Lipase (11-82) U/L Urine Color Urine Clarity (CLEAR) Urine pH (5.0-7.5) PH Ur Specific [place] (1.002-1.030) Urine Protein (NEGATIVE) mg/dL Urine Glucose (UA) (NEGATIVE) mg/dL Urine Ketones (NEGATIVE) mg/dL Urine Occult Blood (NEGATIVE) Urine Nitrite (NEGATIVE) Urine Bilirubin (NEGATIVE) Urine Urobilinogen (NORMAL) E.U./dL Ur Leukocyte Esterase (NEGATIVE) Urine RBC (0-5) /HPF Urine WBC (0-3) /HPF Ur Squamous Epith Cells (<= Few) Urine Bacteria (None Seen) /HPF Ur Microscopic Review Urine Culture Comments Blood Type Antibody Screen 09/26/23 09/26/23 09/26/23 Range/Units 18:24 15:15 15:15 WBC (4.8-10.8) x10^3/uL RBC (4.70-6.10) 10^6/uL Hgb (14.0-18.0) g/dL Hct (42.0-52.0) % MCV (80.0-94.0) fL MCH (27.0-31.0) pg MCHC (32.0-36.0) g/dL RDW (12.0-15.0) % Plt Count (130-450) 10^3/uL MPV (7.4-11.4) fL Neut # (Auto) (1.5-6.6) 10^3/uL Lymph # (Auto) (1.5-3.5) 10^3/uL [place] # (Auto) (0.0-1.0) 10^3/uL Eos # (Auto) (0.0-0.7) 10^3/uL Baso # (Auto) (0.0-0.1) 10^3/uL Absolute Nucleated RBC x10^3/uL Nucleated RBC % /100WBC Manual Slide Review Platelet Estimate (NORMAL) Platelet Morphology (NORMAL) RBC Morph Micro Appear (NORMAL) PT 12.8 H (9.9-12.6) secs INR 1.2 (0.8-1.2) APTT 26.6 (24.9-33.3) secs Sodium 135 (135-145) mmol/L Potassium 4.2 (3.5-4.5) mmol/L Chloride 107 (101-111) mmol/L Carbon Dioxide 22 (21-32) mmol/L Anion Gap 6.0 (6-13) BUN 29 H (6-20) mg/dL Creatinine 1.7 H (0.6-1.3) mg/dL Estimated GFR (MDRD) 40 L (>89) Glucose 125 H (74-104) mg/dL POC Whole Bld Glucose (70 - 100) mg/dL Calcium 8.2 L (8.5-10.3) mg/dL Total Bilirubin 0.4 (0.2-1.0) mg/dL AST 12 (10-42) IU/L ALT 17 (10-60) IU/L Alkaline Phosphatase 74 (42-121) IU/L Total Protein 5.6 L (6.4-8.9) g/dL Albumin 3.0 L (3.2-5.5) g/dL Globulin 2.6 (2.1-4.2) g/dL Albumin/Globulin Ratio 1.2 (1.0-2.2) Lipase 16 (11-82) U/L Urine Color Urine Clarity (CLEAR) Urine pH (5.0-7.5) PH Ur Specific [place] (1.002-1.030) Urine Protein (NEGATIVE) mg/dL Urine Glucose (UA) (NEGATIVE) mg/dL Urine Ketones (NEGATIVE) mg/dL Urine Occult Blood (NEGATIVE) Urine Nitrite (NEGATIVE) Urine Bilirubin (NEGATIVE) Urine Urobilinogen (NORMAL) E.U./dL Ur Leukocyte Esterase (NEGATIVE) Urine RBC (0-5) /HPF Urine WBC (0-3) /HPF Ur Squamous Epith Cells (<= Few) Urine Bacteria (None Seen) /HPF Ur Microscopic Review Urine Culture Comments Blood Type AB POSITIVE Antibody Screen NEGATIVE 09/26/23 09/26/23 Range/Units 15:15 15:08 WBC 5.9 (4.8-10.8) x10^3/uL RBC 2.13 L (4.70-6.10) 10^6/uL Hgb 8.0 L (14.0-18.0) g/dL Hct 24.1 L (42.0-52.0) % MCV 113.1 H (80.0-94.0) fL MCH 37.6 H (27.0-31.0) pg MCHC 33.2 (32.0-36.0) g/dL RDW 13.2 (12.0-15.0) % Plt Count 83 L (130-450) 10^3/uL MPV 9.1 (7.4-11.4) fL Neut # (Auto) 5.1 (1.5-6.6) 10^3/uL Lymph # (Auto) 0.3 L (1.5-3.5) 10^3/uL [place] # (Auto) 0.4 (0.0-1.0) 10^3/uL Eos # (Auto) 0.0 (0.0-0.7) 10^3/uL Baso # (Auto) 0.0 (0.0-0.1) 10^3/uL Absolute Nucleated RBC 0.00 x10^3/uL Nucleated RBC % 0.0 /100WBC Manual Slide Review Indicated Platelet Estimate DECREASED (<130,000) (NORMAL) Platelet Morphology NORMAL APPEARANCE (NORMAL) RBC Morph Micro Appear 2+ MACROCYTOSIS (NORMAL) PT (9.9-12.6) secs INR (0.8-1.2) APTT (24.9-33.3) secs Sodium (135-145) mmol/L Potassium (3.5-4.5) mmol/L Chloride (101-111) mmol/L Carbon Dioxide (21-32) mmol/L Anion Gap (6-13) BUN (6-20) mg/dL Creatinine (0.6-1.3) mg/dL Estimated GFR (MDRD) (>89) Glucose (74-104) mg/dL POC Whole Bld Glucose (70 - 100) mg/dL Calcium (8.5-10.3) mg/dL Total Bilirubin (0.2-1.0) mg/dL AST (10-42) IU/L ALT (10-60) IU/L Alkaline Phosphatase (42-121) IU/L Total Protein (6.4-8.9) g/dL Albumin (3.2-5.5) g/dL Globulin (2.1-4.2) g/dL Albumin/Globulin Ratio (1.0-2.2) Lipase (11-82) U/L Urine Color RED/BLOODY Urine Clarity BLOODY (CLEAR) Urine pH 6.0 (5.0-7.5) PH Ur Specific [place] 1.025 (1.002-1.030) Urine Protein >=300 H (NEGATIVE) mg/dL Urine Glucose (UA) 250 H (NEGATIVE) mg/dL Urine Ketones NEGATIVE (NEGATIVE) mg/dL Urine Occult Blood LARGE H (NEGATIVE) Urine Nitrite POSITIVE H (NEGATIVE) Urine Bilirubin NEGATIVE (NEGATIVE) Urine Urobilinogen 1 (NORMAL) (NORMAL) E.U./dL Ur Leukocyte Esterase NEGATIVE (NEGATIVE) Urine RBC TNTC H (0-5) /HPF Urine WBC 0-3 (0-3) /HPF Ur Squamous Epith Cells NONE SEEN (<= Few) Urine Bacteria None Seen (None Seen) /HPF Ur Microscopic Review INDICATED Urine Culture Comments INDICATED Blood Type Antibody Screen ABX Reporting Has patient been on IV antibiotics over the past 48 hours?: No Sepsis Event Note (H) - Evaluation Current Stage of Sepsis: Ruled out Assessment/Plan - Problem List (1) Gross hematuria Impression: Appreciate the assistance of urology. Continue CBI today. He will go to the operating room tomorrow for cystoscopy and stent placement. (2) Hydroureter on left Impression: The patient will have possible stent placement tomorrow. (3) Acute blood loss anemia Impression: Patient has had greater than a 2 g drop in his hemoglobin. Current hemoglobin is 7.3. I have ordered 2 units of packed red blood with instructions to transfuse if his hemoglobin drops below 7.0. He is asymptomatic at this point. His acute blood loss anemia is due to his ongoing hematuria. Check H&H's every 8 hours today and transfuse as needed (4) Chronic kidney disease, stage 3 Impression: The patient's baseline creatinine appears to be about 1.5. Currently 1.7. Will monitor closely for worsening in light of his ongoing blood loss and hydroureter. (5) AML (acute myeloblastic leukemia) Impression: He is status post bone marrow transplant. Stable. (6) Bone marrow transplant status Impression: Quiescent. No issues at this point. (7) Danitza's granulomatosis Impression: Quiescent (8) Diabetes Impression: Continue sliding scale coverage for now (9) Paroxysmal atrial fibrillation Impression: Currently in a sinus rhythm and rate controlled. His Eliquis has been held (10) Pulmonary hemorrhage Impression: History of pulmonary hemorrhage in the past. No issues at this point. (11) Thrombocytopenia Impression: Continue to monitor Disposition: Inpatient hospitalization remains necessary. The patient has ongoing hematuria and needs cystoscopy and stent placement tomorrow for his hydronephrosis. Timing of disposition will be determined by his clinical Time spent: 35 minutes
[2023-09-27] MEDS: ACETAMINOPHEN 325 MG TABLET PO ONE (12:27)
--- NOTE | 2023-09-27 16:46 | PHARMACY PROGRESS NOTE ---
- Best Possible Medication History Admit Date and Time: 09/26/23 9175 Processed by: Pharmacy Medications reviewed in ED?: No Medication History completed: Yes Patient Interview: Completed Secondary Source(s): Caregiver (Medication Reconciliation completed by Pharmacy Technicians, Aly), Insurance records As the person ultimately responsible for medication therapy, providers are able to order a medication from an existing home medication list in [facility] via the "Reconcile Routine" prior to Confirmation of that medication by system support administrator. Such practice is discouraged except when the physician, in their clinical j udgment, deems that a medical need exists for a medication without regard to previous use.
[2023-09-27 17:59] LABS: HCT - HEMATOCRIT 21.8 % (42.0-52.0); HGB - HEMOGLOBIN 7.3 g/dL (14.0-18.0)
[2023-09-27] MEDS: CARBOXYMETHYLCELLULOSE OPHTH DROPS EACHEYE PRN (21:55)
[2023-09-28 05:48] LABS: BASOPHILS % (AUTO) 0.4 %; EOSINOPHILS # (AUTO) 0.1 10^3/uL (0.0-0.7); EOSINOPHILS % (AUTO) 1.7 %; HCT - HEMATOCRIT 22.4 % (42.0-52.0); HGB - HEMOGLOBIN 7.5 g/dL (14.0-18.0); LYMPHOCYTES # (AUTO) 0.4 10^3/uL (1.5-3.5); LYMPHOCYTES % (AUTO) 8.1 %; MEAN CORPUSCULAR HEMOGLOBIN 38.3 pg (27.0-31.0); MEAN CORPUSCULAR HGB CONC 33.5 g/dL (32.0-36.0); MEAN CORPUSCULAR VOLUME 114.3 fL (80.0-94.0); MEAN PLATELET VOLUME 9.4 fL (7.4-11.4); MONOCYTES # (AUTO) 0.4 10^3/uL (0.0-1.0); MONOCYTES % (AUTO) 7.9 %; NEUTROPHILS # (AUTO) 3.8 10^3/uL (1.5-6.6); NEUTROPHILS % (AUTO) 80.4 %; PLT - PLATELET COUNT 88 10^3/uL (130-450); RED BLOOD COUNT 1.96 10^6/uL (4.70-6.10); RED CELL DISTRIBUTION WIDTH 13.4 % (12.0-15.0); WHITE BLOOD COUNT 4.7 x10^3/uL (4.8-10.8)
[2023-09-28 05:54] LABS: SLIDE REVIEW? Indicated
[2023-09-28 06:33] LABS: PLATELET ESTIMATE, MANUAL DECREASED (<130,000) (NORMAL)
[2023-09-28 06:35] LABS: ALBUMIN 3.2 g/dL (3.2-5.5); CALCIUM 8.5 mg/dL (8.5-10.3); CREATININE 1.6 mg/dL (0.6-1.3); MAGNESIUM 1.9 mg/dL (1.7-2.3); PHOSPHORUS 3.6 mg/dL (2.5-5.0)
[2023-09-28] MEDS ORDERED: NON FORMULARY MED (Melatonin [Melatonin] 5 MG Tablet) PO PRN (07:13)
--- NOTE | 2023-09-28 08:37 | PROVIDER PROGRESS NOTE ---
Subjective - General Admit Date: 09/26/23 - Review of Systems General: positive: Other (Again he had occasional blockage of his catheter overnight but the hematuria has improved.) All Other Systems: positive: Reviewed and negative Objective - Patient Data Reviewed Vital Signs: Yes Vital Signs: Vital Signs x48h Temp Pulse Resp BP Pulse Ox 09/28/23 07:31 36.5 C 100 16 118/64 95 Weight: Weight 09/26/23 09/27/23 09/28/23 23:59 23:59 23:59 Weight (kg) 68.5 kg Intake & Output: Intake and Output Totals x24h 09/26/23 09/27/23 09/28/23 23:59 23:59 23:59 Intake Total 57585 94305 58695 Output Total 7003147 614934 39884 Balance 7172 -37618 -7769 - Lab Results Lab Results: 09/28/23 05:17 09/28/23 05:17 Other Lab Results: Lab Results x24hrs 09/28/23 09/28/23 09/27/23 Range/Units 05:17 05:17 17:54 WBC 4.7 L (4.8-10.8) x10^3/uL RBC 1.96 L (4.70-6.10) 10^6/uL Hgb 7.5 L 7.3 L (14.0-18.0) g/dL Hct 22.4 L 21.8 L (42.0-52.0) % MCV 114.3 H (80.0-94.0) fL MCH 38.3 H (27.0-31.0) pg MCHC 33.5 (32.0-36.0) g/dL RDW 13.4 (12.0-15.0) % Plt Count 88 L (130-450) 10^3/uL MPV 9.4 (7.4-11.4) fL Neut # (Auto) 3.8 (1.5-6.6) 10^3/uL Lymph # (Auto) 0.4 L (1.5-3.5) 10^3/uL [place] # (Auto) 0.4 (0.0-1.0) 10^3/uL Eos # (Auto) 0.1 (0.0-0.7) 10^3/uL Baso # (Auto) 0.0 (0.0-0.1) 10^3/uL Absolute Nucleated RBC 0.00 x10^3/uL Nucleated RBC % 0.0 /100WBC Manual Slide Review Indicated Platelet Estimate DECREASED (<130,000) (NORMAL) RBC Morph Micro Appear 1+ HYPOCHROMASIA (NORMAL) Sodium 136 (135-145) mmol/L Potassium 4.0 (3.5-4.5) mmol/L Chloride 107 (101-111) mmol/L Carbon Dioxide 21 (21-32) mmol/L Anion Gap 8.0 (6-13) BUN 21 H (6-20) mg/dL Creatinine 1.6 H (0.6-1.3) mg/dL Estimated GFR (MDRD) 43 L (>89) Glucose 100 (74-104) mg/dL Calcium 8.5 (8.5-10.3) mg/dL Phosphorus 3.6 (2.5-5.0) mg/dL Magnesium 1.9 (1.7-2.3) mg/dL Albumin 3.2 (3.2-5.5) g/dL Blood Type Antibody Screen Crossmatch IS Only 09/27/23 09/26/23 Range/Units 08:34 18:24 WBC (4.8-10.8) x10^3/uL RBC (4.70-6.10) 10^6/uL Hgb 7.3 L (14.0-18.0) g/dL Hct 22.5 L (42.0-52.0) % MCV (80.0-94.0) fL MCH (27.0-31.0) pg MCHC (32.0-36.0) g/dL RDW (12.0-15.0) % Plt Count (130-450) 10^3/uL MPV (7.4-11.4) fL Neut # (Auto) (1.5-6.6) 10^3/uL Lymph # (Auto) (1.5-3.5) 10^3/uL [place] # (Auto) (0.0-1.0) 10^3/uL Eos # (Auto) (0.0-0.7) 10^3/uL Baso # (Auto) (0.0-0.1) 10^3/uL Absolute Nucleated RBC x10^3/uL Nucleated RBC % /100WBC Manual Slide Review Platelet Estimate (NORMAL) RBC Morph Micro Appear (NORMAL) Sodium (135-145) mmol/L Potassium (3.5-4.5) mmol/L Chloride (101-111) mmol/L Carbon Dioxide (21-32) mmol/L Anion Gap (6-13) BUN (6-20) mg/dL Creatinine (0.6-1.3) mg/dL Estimated GFR (MDRD) (>89) Glucose (74-104) mg/dL Calcium (8.5-10.3) mg/dL Phosphorus (2.5-5.0) mg/dL Magnesium (1.7-2.3) mg/dL Albumin (3.2-5.5) g/dL Blood Type AB POSITIVE Antibody Screen NEGATIVE Crossmatch IS Only See Detail - Current Medications Current Medications: Current Medications Generic Name Dose Route Start Last Admin Trade Name Freq PRN Reason Stop Dose Admin Carboxymethylcellulose 1 drops 09/27/23 21:23 09/27/23 21:55 Carboxymethylcellulose Ophth Drops EACHEYE 1 drops PRN PRN Administration Dry Eye Hydromorphone HCl 0.5 mg 09/26/23 16:05 09/28/23 04:11 Hydromorphone 0.5 Mg/0.5 Ml Syringe IVP 0.5 mg Q2H PRN Administration Pain 8 to 10 Ceftriaxone Sodium 1 gm/ 100 mls @ 200 mls/hr 09/27/23 09:00 09/27/23 12:38 Sodium Chloride IV 10/04/23 08:59 Infused DAILY JUJU Infusion Insulin Human Lispro 1 - 5 unit 09/26/23 21:00 09/27/23 20:43 Insulin Lispro 300 Unit/3 Ml Pen SUBQ Not Given 0800,1200,1700,2100 [facility] Protocol Sodium Chloride 10 ml 09/26/23 17:00 09/28/23 04:11 Sodium Chloride Flush 0.9% 10 Ml Syringe IVP 10 ml 0100,0900,1700 JUJU Administration Solifenacin 5 mg 09/27/23 09:00 09/27/23 09:09 Solifenacin Succinate 5 Mg Tablet PO 5 mg DAILY JUJU Administration - Physical Exam General Appearance: positive: No acute distress Eyes Bilateral: positive: Other (left eye patch) Respiratory: positive: Breath sounds nml Cardiovascular: positive: Regular rate & rhythm ABX Reporting Has patient been on IV antibiotics over the past 48 hours?: Yes Impression/Plan - Problem List Problem List: 72-year-old male with continued hematuria of unclear etiology which is improving but also with left-sided hydroureteronephrosis and BRANDEN with creatinine 1.7 from baseline 1. He has not improving enough that he can go home and so I would recommend a procedure today to diver helper with that He has been added on for cystoscopy, clot evacuation, fulguration of bleeding areas, possible left retrograde pyelogram, possible left stent. The risk, benefits, alternatives were discussed with patient. Patient states understanding consents to above plan. We will aim for noon today N.p.o. with IV fluids for now Continue continuous bladder irrigation for now Continue antibiotics for now even though urine culture negative, prefer to be on antibiotics in the setting of continuous bladder irrigation
--- NOTE | 2023-09-28 08:54 | PROVIDER PROGRESS NOTE ---
Subjective - Prog Note Date Prog Note Date: 09/28/23 Prog Note Time: 08:50 - Subjective Pt reports feeling: No change Subjective: The patient is resting in his bed this morning. He did have some clots overnight with some significant pain. However overall his hematuria is improving. He has been seen by urology this morning who plans to take him to the operating room for cystoscopy, clot evacuation, fulguration of bleeding are as, possible left retrograde pyelogram, possible left stent. At the time of my visit he is pain-free. He denies fever or chills. No chest pain or heart palpitations. No nausea vomiting or diarrhea. Still having hematuria with some clots. Current Medications - Current Medications Current Medications: Tylenol 650 mg p.o. every 4 hours as needed pain Hydrocodone 5/325 mg 1 p.o. every 4 hours as needed pain Ceftriaxone 1 g daily Hydromorphone 0.5 mg IV every 2 hours as needed severe pain Humalog sliding scale Zofran 4 mg p.o. every 6 hours as needed nausea and bowel Zofran 4 mg IV every 6 hours as needed nausea Vesicare 5 mg p.o. daily Objective - Vital Signs/Intake & Output Vital Signs: Vital Signs x48h Temp Pulse Resp BP Pulse Ox 09/28/23 07:31 36.5 C 100 16 118/64 95 Intake & Output: Intake & Output 09/25/23 09/26/23 09/27/23 09/28/23 23:59 23:59 23:59 23:59 Intake Total 66892 00254 50835 Output Total 42545 613238 95116 Balance 4185 -25118 -8895 - Objective General Appearance: positive: No acute distress, Alert Eyes Bilateral: positive: Normal inspection ENT: positive: ENT inspection nml Neck: positive: Nml inspection Respiratory: positive: Chest non-tender, No respiratory distress Cardiovascular: positive: Regular rate & rhythm, No murmur, No gallop. negative: Friction rub Abdomen: positive: Non-tender, Nml bowel sounds, No distention. negative: Tenderness Skin: positive: Color nml, No rash, Warm, Dry Extremities: positive: Non-tender Neurologic/Psychiatric: positive: Oriented x3, CN's nml (2-12) - Lab Results Fish Bones: 09/28/23 05:17 09/28/23 05:17 Other Labs: Lab Results x24hrs 09/28/23 09/28/23 09/27/23 Range/Units 05:17 05:17 17:54 WBC 4.7 L (4.8-10.8) x10^3/uL RBC 1.96 L (4.70-6.10) 10^6/uL Hgb 7.5 L 7.3 L (14.0-18.0) g/dL Hct 22.4 L 21.8 L (42.0-52.0) % MCV 114.3 H (80.0-94.0) fL MCH 38.3 H (27.0-31.0) pg MCHC 33.5 (32.0-36.0) g/dL RDW 13.4 (12.0-15.0) % Plt Count 88 L (130-450) 10^3/uL MPV 9.4 (7.4-11.4) fL Neut # (Auto) 3.8 (1.5-6.6) 10^3/uL Lymph # (Auto) 0.4 L (1.5-3.5) 10^3/uL [place] # (Auto) 0.4 (0.0-1.0) 10^3/uL Eos # (Auto) 0.1 (0.0-0.7) 10^3/uL Baso # (Auto) 0.0 (0.0-0.1) 10^3/uL Absolute Nucleated RBC 0.00 x10^3/uL Nucleated RBC % 0.0 /100WBC Manual Slide Review Indicated Platelet Estimate DECREASED (<130,000) (NORMAL) RBC Morph Micro Appear 1+ HYPOCHROMASIA (NORMAL) Sodium 136 (135-145) mmol/L Potassium 4.0 (3.5-4.5) mmol/L Chloride 107 (101-111) mmol/L Carbon Dioxide 21 (21-32) mmol/L Anion Gap 8.0 (6-13) BUN 21 H (6-20) mg/dL Creatinine 1.6 H (0.6-1.3) mg/dL Estimated GFR (MDRD) 43 L (>89) Glucose 100 (74-104) mg/dL Calcium 8.5 (8.5-10.3) mg/dL Phosphorus 3.6 (2.5-5.0) mg/dL Magnesium 1.9 (1.7-2.3) mg/dL Albumin 3.2 (3.2-5.5) g/dL Blood Type Antibody Screen Crossmatch IS Only 09/26/23 Range/Units 18:24 WBC (4.8-10.8) x10^3/uL RBC (4.70-6.10) 10^6/uL Hgb (14.0-18.0) g/dL Hct (42.0-52.0) % MCV (80.0-94.0) fL MCH (27.0-31.0) pg MCHC (32.0-36.0) g/dL RDW (12.0-15.0) % Plt Count (130-450) 10^3/uL MPV (7.4-11.4) fL Neut # (Auto) (1.5-6.6) 10^3/uL Lymph # (Auto) (1.5-3.5) 10^3/uL [place] # (Auto) (0.0-1.0) 10^3/uL Eos # (Auto) (0.0-0.7) 10^3/uL Baso # (Auto) (0.0-0.1) 10^3/uL Absolute Nucleated RBC x10^3/uL Nucleated RBC % /100WBC Manual Slide Review Platelet Estimate (NORMAL) RBC Morph Micro Appear (NORMAL) Sodium (135-145) mmol/L Potassium (3.5-4.5) mmol/L Chloride (101-111) mmol/L Carbon Dioxide (21-32) mmol/L Anion Gap (6-13) BUN (6-20) mg/dL Creatinine (0.6-1.3) mg/dL Estimated GFR (MDRD) (>89) Glucose (74-104) mg/dL Calcium (8.5-10.3) mg/dL Phosphorus (2.5-5.0) mg/dL Magnesium (1.7-2.3) mg/dL Albumin (3.2-5.5) g/dL Blood Type AB POSITIVE Antibody Screen NEGATIVE Crossmatch IS Only See Detail ABX Reporting Has patient been on IV antibiotics over the past 48 hours?: Yes Sepsis Event Note (H) - Evaluation Current Stage of Sepsis: Ruled out Assessment/Plan - Problem List (1) Gross hematuria Impression: The patient still has ongoing hematuria. He is going to the operating room today for cystoscopy and possible stent placement as above. It is suspected that the patient may have a bladder cancer. (2) Hydroureter on left Impression: He will possibly have a stent placed today in the operating room. Plan of care per urology (3) Acute blood loss anemia Impression: His hemoglobin has remained on the low side but stable. He has not required transfusion yet. Continue to monitor (4) Chronic kidney disease, stage 3 Impression: Creatinine is down to 1.6 from 1.9 yesterday. He is just about at his baseline. (5) AML (acute myeloblastic leukemia) Impression: He is status post bone marrow transplant. Quiescent (6) Bone marrow transplant status Impression: No issues at this point. (7) Danitza's granulomatosis Impression: Quiescent (8) Diabetes Impression: Stable on current regimen (9) Paroxysmal atrial fibrillation Impression: Currently in a sinus rhythm and rate controlled (10) Pulmonary hemorrhage Impression: He has a history of pulmonary hemorrhage. Continue to monitor him closely. No issues at this (11) Thrombocytopenia Impression: The patient is thrombocytopenic. Platelet level has improved slightly and is 88 today. Disposition: The patient is still having ongoing hematuria with clots. He is requiring parenteral pain medication. He is going to the operating room today with urology. Timing of disposition will be determined by his clinical course Time spent: 35 minutes
[2023-09-28] MEDS: FLUTICASONE NASAL SPRAY NAS SCH (08:58)
[2023-09-28] MEDS ORDERED: ZINC GLUCONATE 50 MG PO SCH (09:00)
[2023-09-28] MEDS ORDERED: MAGNESIUM GLYCINATE 100 MG PO SCH (09:00)
[2023-09-28] MEDS ORDERED: NON FORMULARY MED (Lactobacillus Combination No.4 [Probiotic] 1 EACH Capsule) PO SCH (09:00)
[2023-09-28] MEDS ORDERED: PREDNISONE 5 MG PO SCH (09:00)
[2023-09-28] MEDS ORDERED: CYANOCOBALAMIN 5000 MCG PO SCH (09:00)
[2023-09-28] MEDS: OFLOXACIN 0.3% OPHTH DROPS LEFTEYE SCH (09:30)
[2023-09-28] MEDS: ZINC SULFATE 220 MG CAPSULE PO SCH (09:35)
[2023-09-28] MEDS: predniSONE 5 MG TABLET PO SCH (09:35)
[2023-09-28] MEDS: MULTIVITAMIN TABLET PO SCH (09:35)
[2023-09-28] MEDS: valACYclovir 500 MG TABLET PO SCH (09:35)
[2023-09-28] MEDS: prednisoLONE 1% OPHTH DROPS 75 DROPS/5 ML BOTTLE LEFTEYE SCH (09:35)
[2023-09-28] MEDS: CYANOCOBALAMIN 500 MCG TABLET PO SCH (09:35)
[2023-09-28] MEDS: PANTOPRAZOLE 40 MG TABLET PO SCH (09:35)
[2023-09-28] MEDS: SACCHAROMYCES BOULARDII 250 MG CAPSULE PO SCH (09:35)
[2023-09-28] MEDS ORDERED: LIDOCAINE 2% URO-JET 5 ML SYRINGE UR ONE (11:09)
[2023-09-28] MEDS ORDERED: iohexoL-240 10 ML VIAL IVP ONE (11:09)
[2023-09-28] MEDS ORDERED: ONDANSETRON 4 MG/2 ML VIAL ONE (11:37)
[2023-09-28] MEDS ORDERED: PROPOFOL 200 MG/20 ML VIAL IVP ONE (11:37)
[2023-09-28] MEDS ORDERED: DEXAMETHASONE 4 MG/ML VIAL ONE (11:37)
[2023-09-28] MEDS ORDERED: fentaNYL 100 MCG/2 ML VIAL ONE ×2 (11:37→12:14)
--- NOTE | 2023-09-28 11:49 | ANESTHESIA ---
Pre-Anesthesia VS, & Labs - Diagnosis Diagnosis Gross hematuria Left hydroureteronephrosis bladder calcification - Procedure hematuria Vital Signs: Temp Pulse Resp BP Pulse Ox O2 Flow Rate 36.5 C 100 16 118/64 95 09/28/23 07:31 09/28/23 07:31 09/28/23 07:31 09/28/23 07:31 09/28/23 07:31 Height: 5 ft 7 in Weight (kg): 68.5 kg Body Mass Index: 23.6 BMI Classification: Normal - NPO >8 hours - Lab Results Current Lab Results: Laboratory Tests 09/28/23 05:17: Sodium 136, Potassium 4.0, Chloride 107, Carbon Dioxide 21, Anion Gap 8.0, BUN 21 H, Creatinine 1.6 H, Estimated GFR (MDRD) 43 L, Glucose 100, Calcium 8.5, Phosphorus 3.6, Magnesium 1.9, Albumin 3.2 09/28/23 05:17: WBC 4.7 L, RBC 1.96 L, Hgb 7.5 L, Hct 22.4 L, MCV 114.3 H, MCH 38.3 H, MCHC 33.5, RDW 13.4, Plt Count 88 L, MPV 9.4, Neut # (Auto) 3.8, Lymph # (Auto) 0.4 L, [place] # (Auto) 0.4, Eos # (Auto) 0.1, Baso # (Auto) 0.0, Absolute Nucleated RBC 0.00, Nucleated RBC % 0.0, Manual Slide Review Indicated, Platelet Estimate DECREASED (<130,000), RBC Morph Micro Appear 1+ HYPOCHROMASIA 09/27/23 17:54: Hgb 7.3 L, Hct 21.8 L 09/27/23 08:34: Hgb 7.3 L, Hct 22.5 L 09/27/23 05:27: Sodium 135, Potassium 4.1, Chloride 108, Carbon Dioxide 19 L, Anion Gap 8.0, BUN 24 H, Creatinine 1.7 H, Estimated GFR (MDRD) 40 L, Glucose 97, Calcium 8.1 L 09/27/23 05:27: WBC 5.3, RBC 2.03 L, Hgb 7.7 L, Hct 24.0 L, MCV 118.2 H, MCH 37.9 H, MCHC 32.1, RDW 13.3, Plt Count 83 L, MPV 9.7, Neut # (Auto) 4.2, Lymph # (Auto) 0.5 L, [place] # (Auto) 0.5, Eos # (Auto) 0.1, Baso # (Auto) 0.0, Absolute Nucleated RBC 0.00, Nucleated RBC % 0.0, Manual Slide Review Indicated, Platelet Estimate DECREASED (<130,000), RBC Morph Micro Appear 2+ MACROCYTOSIS 09/27/23 00:25: Hgb 9.1 L, Hct 26.6 L 09/26/23 21:34: POC Whole Bld Glucose 98 09/26/23 18:24: Hgb 8.3 L, Hct 25.1 L 09/26/23 18:24: Blood Type AB POSITIVE, Antibody Screen NEGATIVE, Crossmatch IS Only See Detail 09/26/23 15:15: PT 12.8 H, INR 1.2, APTT 26.6 09/26/23 15:15: Sodium 135, Potassium 4.2, Chloride 107, Carbon Dioxide 22, Anion Gap 6.0, BUN 29 H, Creatinine 1.7 H, Estimated GFR (MDRD) 40 L, Glucose 125 H, Calcium 8.2 L, Total Bilirubin 0.4, AST 12, ALT 17, Alkaline Phosphatase 74, Total Protein 5.6 L, Albumin 3.0 L, Globulin 2.6, Albumin/Globulin Ratio 1.2, Lipase 16 09/26/23 15:15: WBC 5.9, RBC 2.13 L, Hgb 8.0 L, Hct 24.1 L, MCV 113.1 H, MCH 37.6 H, MCHC 33.2, RDW 13.2, Plt Count 83 L, MPV 9.1, Neut # (Auto) 5.1, Lymph # (Auto) 0.3 L, [place] # (Auto) 0.4, Eos # (Auto) 0.0, Baso # (Auto) 0.0, Absolute Nucleated RBC 0.00, Nucleated RBC % 0.0, Manual Slide Review Indicated, Platelet Estimate DECREASED (<130,000), Platelet Morphology NORMAL APPEARANCE, RBC Morph Micro Appear 2+ MACROCYTOSIS Fish Bones: 09/28/23 05:17 09/28/23 05:17 Home Medications and Allergies Home Medications: Ambulatory Orders Metoprolol Tartrate [Lopressor] 12.5 mg PO BID 09/27/23 Multivitamin [Theragran] 1 each PO DAILY 09/27/23 Active Medications Acetaminophen (Acetaminophen 325 Mg Tablet) 650 mg PO Q4HR PRN PRN Reason: Pain 1 to 4, or Fever Hydrocodone Bitart/Acetaminophen (Hydrocod/Acetam 5/325 Mg Tablet) 1 tab PO Q4HR PRN PRN Reason: Pain 5 to 7 Carboxymethylcellulose (Carboxymethylcellulose Ophth Drops) 1 drops EACHEYE PRN PRN PRN Reason: Dry Eye Last Admin: 09/27/23 21:55 Dose: 1 drops Cyanocobalamin (Cyanocobalamin 500 Mcg Tablet) 1,000 mcg PO DAILY [facility] Last Admin: 09/28/23 09:35 Dose: Not Given Fluticasone Propionate (Fluticasone Nasal [place]) 1 sprays SHENA BID [facility] Last Admin: 09/28/23 08:58 Dose: 1 spr Hydromorphone HCl (Hydromorphone 0.5 Mg/0.5 Ml Syringe) 0.5 mg IVP Q2H PRN PRN Reason: Pain 8 to 10 Last Admin: 09/28/23 04:11 Dose: 0.5 mg Ceftriaxone Sodium 1 gm/ (Sodium Chloride) 100 mls @ 200 mls/hr IV DAILY [facility] Stop: 10/04/23 08:59 Last Infusion: 09/28/23 09:35 Dose: Infused Insulin Human Lispro (Insulin Lispro 300 Unit/3 Ml Pen) 1 - 5 unit SUBQ 0800,1200,1700,2100 [facility]; Protocol Last Admin: 09/28/23 09:34 Dose: Not Given Multivitamins (Multivitamin Tablet) 1 tab PO DAILY [facility] Last Admin: 09/28/23 09:35 Dose: Not Given Ofloxacin (Ofloxacin 0.3% Ophth Drops) 1 drops LEFTEYE BID [facility] Ondansetron HCl (Ondansetron Odt 4 Mg Tablet) 4 mg TL Q6HR PRN PRN Reason: Nausea / Vomiting Ondansetron HCl (Ondansetron 4 Mg/2 Ml Vial) 4 mg IVP Q6HR PRN PRN Reason: Nausea / Vomiting Pantoprazole Sodium (Pantoprazole 40 Mg Tablet) 40 mg PO QDAC [facility] Last Admin: 09/28/23 09:35 Dose: Not Given Prednisolone (Prednisolone 1% Ophth Drops 75 Drops/5 Ml Bottle) 1 drops LEFTEYE DAILY [facility] Last Admin: 09/28/23 09:35 Dose: 1 drops Prednisone (Prednisone 5 Mg Tablet) 5 mg PO DAILYWM [facility] Last Admin: 09/28/23 09:35 Dose: Not Given Saccharomyces Boulardii (Saccharomyces Boulardii 250 Mg Capsule) 250 mg PO DAILY [facility] Last Admin: 09/28/23 09:35 Dose: Not Given Sodium Chloride (Sodium Chloride Flush 0.9% 10 Ml Syringe) 10 ml IVP PRN PRN PRN Reason: NEEDED PER PROVIDER ORDERS Sodium Chloride (Sodium Chloride Flush 0.9% 10 Ml Syringe) 10 ml IVP 0100,0 900,1700 [facility] Last Admin: 09/28/23 09:35 Dose: 10 ml Solifenacin (Solifenacin Succinate 5 Mg Tablet) 5 mg PO DAILY [facility] Last Admin: 09/28/23 09:35 Dose: Not Given Valacyclovir HCl (Valacyclovir 500 Mg Tablet) 500 mg PO BID [facility] Last Admin: 09/28/23 09:35 Dose: Not Given Zinc Sulfate (Zinc Sulfate 220 Mg Capsule) 220 mg PO DAILY [facility] Last Admin: 09/28/23 09:35 Dose: Not Given Cyanocobalamin (Vitamin B-12) [Vitamin B-12] 5,000 mcg PO DAILY 09/19/23 Fluticasone [Flonase] 1 applic INH BID 09/19/23 Lactobacillus Combination No.4 [Probiotic] 1 cap PO DAILY 09/19/23 Magnesium Glycinate 1 tab PO DAILY 09/19/23 Melatonin 1 tab PO PRN PRN 09/19/23 Ofloxacin 0.3% Ophth Drops [Ocuflox 0.3% Ophth Drops] 1 drops LEFTEYE BID 09/19/23 Panax, [place] Ginsg/B12/Royl [Ginseng Complex Capsule] 1 cap PO DAILY 09/19/23 Pantoprazole [Protonix] 1 tab PO DAILY 09/19/23 Prednisone [Jazzmine] 1 tab PO DAILY 09/19/23 Zinc Gluconate [Zinc] 1 tab PO DAILY 09/19/23 prednisoLONE 1% OPHTH DROPS [Pred Forte 1% Ophth Drops] 1 drops LEFTEYE DAILY 09/19/23 valACYclovir [Valtrex] 1 tab PO BID 09/19/23 Metoprolol Tartrate [Lopressor] 12.5 mg PO BID 09/27/23 Multivitamin [Theragran] 1 each PO DAILY 09/27/23 Allergies/Adverse Reactions: Allergies Allergy/AdvReac Type Severity Reaction Status Date / Time No Known Drug Allergies Allergy Verified 09/26/23 14:23 Anes History & Medical History - Anesthetic History Anesthesia Complications: reports: No previous complications Family history of Anesthesia Complications: Denies Family history of Malignant Hyperthermia: Denies - Medical History Cardiovascular: reports: Coronary artery disease, Atrial fibrillation Pulmonary: reports: None Gastrointestinal: reports: GERD, Hemorrhoids Urinary: reports: Incontinence, Chronic bladder infection, Frequency Neuro: reports: None Musculoskeletal: reports: Fatigue, Other Endocrine/Autoimmune: reports: None, Other Blood Disorders: reports: None Skin: reports: None, Other Smoking Status: Never smoker History of Cancer?: Yes - Surgical History General: reports: Colonoscopy Eyes Ears Nose Throat (EENT): reports: Cataracts Orthopedic: reports: Knee replacement Exam General: Alert, Oriented x3, Cooperative Dental: WNL Mouth Openin Fingerbreadth Neck Mobility: Normal Mallampati classification: II Thyromental Distance: 4-6 cm Respiratory: Lungs clear, Normal breath sounds, No respiratory distress Cardiovascular: Other (atrial bigeminy vs AF) Neurological: Normal speech Mental/Cognitive Status: Alert/Oriented X3, Normal for patient Cognitive Status: Within normal limits Plan Anesthesia Type: General Consent for Procedure(s) Verified and Reviewed: Yes Code Status: Attempt Resuscitation ASA classification: 3-Severe systemic disease Is this case an emergency?: No
[2023-09-28] MEDS ORDERED: ONDANSETRON 4 MG/2 ML VIAL IVP PRN (11:53)
[2023-09-28] MEDS ORDERED: MORPHINE 2 MG/ML CARPUJECT IVP PRN (11:53)
[2023-09-28] MEDS ORDERED: ePHEDrine 50 MG/ML VIAL IVP PRN (11:53)
[2023-09-28] MEDS ORDERED: ATROPINE ABBOJECT 1 MG/10 ML SYRINGE IVP PRN (11:53)
[2023-09-28] MEDS ORDERED: METOCLOPRAMIDE 10 MG/2 ML VIAL IVP PRN (11:53)
[2023-09-28] MEDS ORDERED: HYDROmorphone 0.5 MG/0.5 ML SYRINGE IVP PRN (11:53)
[2023-09-28] MEDS ORDERED: fentaNYL 100 MCG/2 ML VIAL IVP PRN (11:53)
[2023-09-28] MEDS ORDERED: NALOXONE 0.4 MG/ML VIAL IVP PRN (11:53)
[2023-09-28] MEDS ORDERED: PHENYLEPHRINE HCL 0.5 MG/5 ML AMPULE ONE (11:56)
[2023-09-28] MEDS ORDERED: LACTATED RINGERS 1,000 ML IV SCH (12:00)
[2023-09-28] MEDS: iohexoL-240 10 ML VIAL IVP ONE (12:04)
[2023-09-28] MEDS ORDERED: ePHEDrine 50 MG/ML VIAL IVP ONE (12:04)
[2023-09-28] MEDS: LIDOCAINE 2% URO-JET 5 ML SYRINGE UR ONE (12:04)
[2023-09-28] MEDS: LACTATED RINGERS 500 ML IV ONE (12:33)
--- NOTE | 2023-09-28 12:53 | OPERATIVE REPORT ---
Operative Report - General Admit Date: 09/26/23 Procedure Date: 09/28/23 Planned Procedure: Cystoscopy, clot evacuation, fulguration of bleeding areas, left retrograde pyelogram, left ureteral stent placement Pre-Op Diagnosis: hematuria, left hydroureteronephrosis Procedure Performed: Cystoscopy clot evacuation fulguration of bleeding areas bladder biopsy Left retrograde pyelogram Left ureteroscopy left ureteral stent placement Post Op Diagnosis: hematuria, bladder lesion, left ureteral stricture - Procedure Note Primary Surgeon: Martin Anesthesia Provider: GENIE Webb Anesthesia Technique: General LMA Pathology: bladder biopsy Estimated Blood Loss (mL): 2 Findings: Diffusely oozing bladder mucosa which was markedly atypical 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 Ureteroscopy benign. Stent placed Complications: none - Other Other Information/Narrative: After informed consent was obtained the patient was brought to the OR and laid supine position. The patient was anesthetized per anesthesia protocols and placed in the dorsolithotomy position. His old catheter was removed. He was prepped and draped in usual sterile fashion. A formal timeout was performed reconfirming the patient, procedure and laterality. A 22 [place] cystoscope was advanced easily into urinary bladder. He was noted to have a wide open prostate without obstruction. He had about 10 cc of clot in his bladder which was evacuated fairly easily. He had no aggressively bleeding areas but he did have diffusely bleeding mucosa of his bladder. His ureteral orifices were orthotopic in nature. A 5 [place] ureteral catheter was used to cannulate the left ureteral orifice. A gentle retrograde pyelogram was performed which showed a narrowing about 4 cm proximal to the left UVJ with proximal hydroureteronephrosis. A short semirigid ureteroscope was advanced o sydni a wire up this ureter and we could see that though there was a narrowing it did not appear to be scar tissue or malignancy but almost like redundant ureteral tissue causing a blockage. For this reason a 6 [place] 24 cm double-J stent was placed with good curling of the kidney and good curling of the bladder. There did seem to be a efflux of fluid from the kidney consistent with obstruction We then placed a 26 [place]an resectoscope into the urinary bladder. Using loop electrocautery and the bipolar setting we resected a small 5 mm portion of the left lateral wall of the bladder to assess the mucosa. We did not attempt to go deep as our goal is hemostasis. The specimen sent for analysis. Spot cautery was used in all oozing areas of the bladder which were many including the anterior, dome, posterior wall, right lateral wall and left lateral wall of the bladder. Hemostasis that point time appeared Excellent. A urojet and then a 22 [place] three-way [place] catheter was placed with 30 cc in the balloon and he was placed in continuous bladder irrigation again. This concluded the procedure and the patient tolerated procedure well. He was brought back without further incident. He will be admitted for further monitoring.
--- NOTE | 2023-09-28 13:23 | ANESTHESIA POST OP EVALUATION ---
Anesthesia Post Eval - Post Anesthesia Eval Vitals: Last Vital Signs Temp 36.3 C L 09/28/23 13:10 Pulse 121 H 09/28/23 13:10 Resp 17 09/28/23 13:10 BP 121/75 09/28/23 13:10 Pulse Ox 95 09/28/23 13:10 O2 Flow Rate CV Function Including HR & BP: Stable Pain Control: Satisfactory Nausea & Vomiting: Negative Mental Status: Baseline Respiratory Status: Airway Patent Hydration Status: Satisfactory Anesthesia Complications: None
[2023-09-28] MEDS: SODIUM CHLORIDE FLUSH 0.9% 10 ML SYRINGE IVP PRN (16:08)
[2023-09-28] MEDS: HYDROcod/ACETAM 5/325 MG TABLET PO PRN (16:18)
--- NOTE | 2023-09-28 17:01 | XRAY Report ---
PROCEDURE: OR C-Arm Procedure INDICATIONS: STENT PLACEMENT FLUORO TIME: 000.2 TECHNIQUE: Intraoperative fluoroscopy for the urology service. Total fluoroscopy time 0.2. Chemothera py dose 4.9 mg. COMPARISON: None. FINDINGS: There is cannulation of the left distal ureter and opacification of the distal ureter. Final image de monstrates a portion of a ureteral stent. Image quality is suboptimal. IMPRESSION: Intraoperative fluoroscopy for the urology service. Reviewed by: Adriana Chou MD on 09/28/2023 5:00 PM PDT Approved by: Adriana Chou MD on 09/28/2023 5:00 PM PDT Station ID: [id number]
[2023-09-29 05:54] LABS: BASOPHILS % (AUTO) 0.2 %; EOSINOPHILS % (AUTO) 0.2 %; LYMPHOCYTES # (AUTO) 0.3 10^3/uL (1.5-3.5); LYMPHOCYTES % (AUTO) 4.8 %; MEAN CORPUSCULAR HGB CONC 32.7 g/dL (32.0-36.0); MEAN CORPUSCULAR VOLUME 113.3 fL (80.0-94.0); MEAN PLATELET VOLUME 9.3 fL (7.4-11.4); MONOCYTES # (AUTO) 0.3 10^3/uL (0.0-1.0); MONOCYTES % (AUTO) 4.6 %; NEUTROPHILS # (AUTO) 5.5 10^3/uL (1.5-6.6); NEUTROPHILS % (AUTO) 88.6 %; PLT - PLATELET COUNT 82 10^3/uL (130-450); RED BLOOD COUNT 1.73 10^6/uL (4.70-6.10); RED CELL DISTRIBUTION WIDTH 13.1 % (12.0-15.0); WHITE BLOOD COUNT 6.3 x10^3/uL (4.8-10.8)
[2023-09-29 05:58] LABS: HGB - HEMOGLOBIN 6.4 g/dL (14.0-18.0)
[2023-09-29 05:59] LABS: HCT - HEMATOCRIT 19.6 % (42.0-52.0)
[2023-09-29 06:14] LABS: ALBUMIN 2.9 g/dL (3.2-5.5); CALCIUM 8.3 mg/dL (8.5-10.3); CREATININE 1.5 mg/dL (0.6-1.3); MAGNESIUM 1.9 mg/dL (1.7-2.3); PHOSPHORUS 3.7 mg/dL (2.5-5.0); POTASSIUM 4.4 mmol/L (3.5-4.5)
[2023-09-29] MEDS ORDERED: diphenhydrAMINE 25 MG CAPSULE PO ONE (06:30)
[2023-09-29] MEDS: diphenhydrAMINE 25 MG CAPSULE PO ONE (07:34)
--- NOTE | 2023-09-29 08:21 | PROVIDER PROGRESS NOTE ---
Subjective - General Admit Date: 09/26/23 Procedure Date: 09/28/23 Post Op Days: 1 Procedure Performed: cystoscopy, bladder biopsy, clot evacuation, fulguration of bleeding etc - Review of Systems General: positive: No symptoms (feeling much better) All Other Systems: positive: Reviewed and negative Objective - Patient Data Reviewed Vital Signs: Yes Vital Signs: Vital Signs x48h Temp Pulse Resp BP Pulse Ox 09/29/23 07:32 37 C 79 16 111/64 95 09/29/23 03:58 37.1 C 95 18 95/63 97 Weight: Weight 09/27/23 09/28/23 09/29/23 23:59 23:59 23:59 Weight (kg) 68.5 kg Intake & Output: Intake and Output Totals x24h 09/27/23 09/28/23 09/29/23 23:59 23:59 23:59 Intake Total 84503 91270 8240 Output Total 844853 16160 6600 Balance -57440 2500 1640 - Lab Results Lab Results: 09/29/23 05:35 09/29/23 05:35 Other Lab Results: Lab Results x24hrs 09/29/23 09/29/23 09/26/23 Range/Units 05:35 05:35 18:24 WBC 6.3 (4.8-10.8) x10^3/uL RBC 1.73 L (4.70-6.10) 10^6/uL Hgb 6.4 L* (14.0-18.0) g/dL Hct 19.6 L* (42.0-52.0) % MCV 113.3 H (80.0-94.0) fL MCH 37.0 H (27.0-31.0) pg MCHC 32.7 (32.0-36.0) g/dL RDW 13.1 (12.0-15.0) % Plt Count 82 L (130-450) 10^3/uL MPV 9.3 (7.4-11.4) fL Neut # (Auto) 5.5 (1.5-6.6) 10^3/uL Lymph # (Auto) 0.3 L (1.5-3.5) 10^3/uL [place] # (Auto) 0.3 (0.0-1.0) 10^3/uL Eos # (Auto) 0.0 (0.0-0.7) 10^3/uL Baso # (Auto) 0.0 (0.0-0.1) 10^3/uL Absolute Nucleated RBC 0.00 x10^3/uL Nucleated RBC % 0.0 /100WBC Sodium 136 (135-145) mmol/L Potassium 4.4 (3.5-4.5) mmol/L Chloride 107 (101-111) mmol/L Carbon Dioxide 24 (21-32) mmol/L Anion Gap 5.0 L (6-13) BUN 20 (6-20) mg/dL Creatinine 1.5 H (0.6-1.3) mg/dL Estimated GFR (MDRD) 46 L (>89) Glucose 147 H (74-104) mg/dL Calcium 8.3 L (8.5-10.3) mg/dL Phosphorus 3.7 (2.5-5.0) mg/dL Magnesium 1.9 (1.7-2.3) mg/dL Albumin 2.9 L (3.2-5.5) g/dL Blood Type AB POSITIVE Antibody Screen NEGATIVE Crossmatch IS Only See Detail - Current Medications Current Medications: Current Medications Generic Name Dose Route Start Last Admin Trade Name Freq PRN Reason Stop Dose Admin Hydrocodone Bitart/Acetaminophen 1 tab 09/26/23 16:05 09/28/23 20:16 Hydrocod/Acetam 5/325 Mg Tablet PO 1 tab Q4HR PRN Administration Pain 5 to 7 Carboxymethylcellulose 1 drops 09/27/23 21:23 09/28/23 21:23 Carboxymethylcellulose Ophth Drops EACHEYE 1 drops PRN PRN Administration Dry Eye Cyanocobalamin 1,000 mcg 09/28/23 09:00 09/28/23 09:35 Cyanocobalamin 500 Mcg Tablet PO Not Given DAILY [facility] Fluticasone Propionate 1 sprays 09/28/23 09:00 09/28/23 20:15 Fluticasone Nasal [place] SHENA 2 spr BID [facility] Administration Hydromorphone HCl 0.5 mg 09/26/23 16:05 09/28/23 22:50 Hydromorphone 0.5 Mg/0.5 Ml Syringe IVP 0.5 mg Q2H PRN Administration Pain 8 to 10 Ceftriaxone Sodium 1 gm/ 100 mls @ 200 mls/hr 09/27/23 09:00 09/28/23 09:35 Sodium Chloride IV 10/04/23 08:59 Infused DAILY [facility] Infusion Insulin Human Lispro 1 - 5 unit 09/26/23 21:00 09/28/23 21:40 Insulin Lispro 300 Unit/3 Ml Pen SUBQ Not Given 0800,1200,1700,2100 [facility] Protocol Multivitamins 1 tab 09/28/23 09:00 09/28/23 09:35 Multivitamin Tablet PO Not Given DAILY [facility] Ofloxacin 1 drops 09/28/23 09:00 09/28/23 20:15 Ofloxacin 0.3% Ophth Drops LEFTEYE 1 drops BID [facility] Administration Pantoprazole Sodium 40 mg 09/28/23 09:00 09/29/23 06:54 Pantoprazole 40 Mg Tablet PO 40 mg QDAC [facility] Administration Prednisolone 1 drops 09/28/23 09:00 09/28/23 09:35 Prednisolone 1% Ophth Drops 75 Drops/5 Ml Bottle LEFTEYE 1 drops DAILY [facility] Administration Prednisone 5 mg 09/28/23 08:00 09/28/23 09:35 Prednisone 5 Mg Tablet PO Not Given DAILYWM [facility] Saccharomyces Boulardii 250 mg 09/28/23 09:00 09/28/23 09:35 Saccharomyces Boulardii 250 Mg Capsule PO Not Given DAILY [facility] Sodium Chloride 10 ml 09/26/23 16:05 09/28/23 16:08 Sodium Chloride Flush 0.9% 10 Ml Syringe IVP 10 ml PRN PRN Administration NEEDED PER PROVIDER ORDERS Sodium Chloride 10 ml 09/26/23 17:00 09/29/23 07:22 Sodium Chloride Flush 0.9% 10 Ml Syringe IVP 10 ml 0100,0900,1700 [facility] Administration Solifenacin 5 mg 09/27/23 09:00 09/28/23 09:35 Solifenacin Succinate 5 Mg Tablet PO Not Given DAILY [facility] Valacyclovir HCl 500 mg 09/28/23 09:00 09/28/23 20:16 Valacyclovir 500 Mg Tablet PO 500 mg BID [facility] Administration Zinc Sulfate 220 mg 09/28/23 09:00 09/28/23 09:35 Zinc Sulfate 220 Mg Capsule PO Not Given DAILY [facility] - Physical Exam Abdomen: positive: Other (martin in place with clear effluent on slow drip CBI) ABX Reporting Has patient been on IV antibiotics over the past 48 hours?: Yes Impression/Plan - Problem List Problem List: Doing much better after fulguration and stent placement Hg <7 and getting blood transfusion which is appropriate I stopped CBI At bedside today, likely will keep off. Restart PRN after discussing with me Hopefully catheter can come out tomorrow Continue abx for now Will follow
[2023-09-29] MEDS: polyethylene glycoL 3350 17 GM PACKET PO SCH (09:05)
--- NOTE | 2023-09-29 09:22 | PROVIDER PROGRESS NOTE ---
Subjective - Prog Note Date Prog Note Date: 09/29/23 Prog Note Time: 09:20 - Subjective Pt reports feeling: Improved Subjective: The patient is feeling a little better this morning. He was seen by urology who stopped CBI. He denies fever or chills. No chest pain or shortness of breath. No nausea, vomiting or diarrhea. He remains with martin catheter. Current Medications - Current Medications Current Medications: Tylenol 650 mg p.o. every 4 hours as needed pain Hydrocodone 5/325 mg 1 p.o. every 4 hours as needed pain Ceftriaxone 1 g daily Hydromorphone 0.5 mg IV every 2 hours as needed severe pain Humalog sliding scale Zofran 4 mg p.o. every 6 hours as needed nausea and bowel Zofran 4 mg IV every 6 hours as needed nausea Vesicare 5 mg p.o. daily Objective - Vital Signs/Intake & Output Reviewed Vital Signs: Yes Vital Signs: Vital Signs x48h Temp Pulse Resp BP Pulse Ox 09/29/23 08:22 36.8 C 80 18 117/66 97 09/29/23 07:32 37 C 79 16 111/64 95 09/29/23 03:58 37.1 C 95 18 95/63 97 Intake & Output: Intake & Output 09/26/23 09/27/23 09/28/23 09/29/23 23:59 23:59 23:59 23:59 Intake Total 95505 96192 88346 8240 Output Total 18541 244596 54331 6600 Balance 2175 -91983 2500 1640 - Objective General Appearance: positive: No acute distress, Alert, Other (chronically ill appearing) Eyes Bilateral: positive: Normal inspection ENT: positive: ENT inspection nml Neck: positive: Nml inspection Respiratory: positive: Chest non-tender, No respiratory distress, Breath sounds nml Cardiovascular: positive: Regular rate & rhythm, No murmur, No gallop. negative: Friction rub Abdomen: positive: Non-tender, Nml bowel sounds, No distention. negative: Tenderness Skin: positive: No rash, Warm, Dry Extremities: positive: Non-tender Neurologic/Psychiatric: positive: Oriented x3, CN's nml (2-12) - Lab Results Fish Bones: 09/29/23 05:35 09/29/23 05:35 Other Labs: Lab Results x24hrs 09/29/23 09/29/23 09/26/23 Range/Units 05:35 05:35 18:24 WBC 6.3 (4.8-10.8) x10^3/uL RBC 1.73 L (4.70-6.10) 10^6/uL Hgb 6.4 L* (14.0-18.0) g/dL Hct 19.6 L* (42.0-52.0) % MCV 113.3 H (80.0-94.0) fL MCH 37.0 H (27.0-31.0) pg MCHC 32.7 (32.0-36.0) g/dL RDW 13.1 (12.0-15.0) % Plt Count 82 L (130-450) 10^3/uL MPV 9.3 (7.4-11.4) fL Neut # (Auto) 5.5 (1.5-6.6) 10^3/uL Lymph # (Auto) 0.3 L (1.5-3.5) 10^3/uL [place] # (Auto) 0.3 (0.0-1.0) 10^3/uL Eos # (Auto) 0.0 (0.0-0.7) 10^3/uL Baso # (Auto) 0.0 (0.0-0.1) 10^3/uL Absolute Nucleated RBC 0.00 x10^3/uL Nucleated RBC % 0.0 /100WBC Sodium 136 (135-145) mmol/L Potassium 4.4 (3.5-4.5) mmol/L Chloride 107 (101-111) mmol/L Carbon Dioxide 24 (21-32) mmol/L Anion Gap 5.0 L (6-13) BUN 20 (6-20) mg/dL Creatinine 1.5 H (0.6-1.3) mg/dL Estimated GFR (MDRD) 46 L (>89) Glucose 147 H (74-104) mg/dL Calcium 8.3 L (8.5-10.3) mg/dL Phosphorus 3.7 (2.5-5.0) mg/dL Magnesium 1.9 (1.7-2.3) mg/dL Albumin 2.9 L (3.2-5.5) g/dL Blood Type AB POSITIVE Antibody Screen NEGATIVE Crossmatch IS Only See Detail ABX Reporting Has patient been on IV antibiotics over the past 48 hours?: Yes Sepsis Event Note (H) - Evaluation Current Stage of Sepsis: Ruled out Assessment/Plan - Problem List (1) Gross hematuria Impression: Improving. CBI was stopped today. Only slightly pink tinged urine in martin bag. Pain has resolved (2) Hydroureter on left Impression: Stable. Plan of care per urology (3) Acute blood loss anemia Impression: Hemoglobin dropped to 6.4. He is receiving blood this morning (4) Chronic kidney disease, stage 3 Impression: Stable (5) AML (acute myeloblastic leukemia) Impression: Quiescent (6) Bone marrow transplant status Impression: Quiescent (7) Danitza's granulomatosis Impression: Quiescent (8) Diabetes Impression: Stable on current regimen (9) Paroxysmal atrial fibrillation Impression: Stable (10) Thrombocytopenia Impression: Continue to monitor. (11) Pulmonary hemorrhage Impression: No issues at this point Disposition: The patient is improving. Since CBI has been stopped we will get PT/OT to see him today. Hopefully can discharge in 24-48 hours Time spent: 35 minutes
[2023-09-30 05:42] LABS: BASOPHILS % (AUTO) 0.3 %; EOSINOPHILS # (AUTO) 0.1 10^3/uL (0.0-0.7); EOSINOPHILS % (AUTO) 1.8 %; HGB - HEMOGLOBIN 7.1 g/dL (14.0-18.0); LYMPHOCYTES # (AUTO) 0.6 10^3/uL (1.5-3.5); MEAN CORPUSCULAR HEMOGLOBIN 36.4 pg (27.0-31.0); MEAN CORPUSCULAR HGB CONC 33.8 g/dL (32.0-36.0); MEAN CORPUSCULAR VOLUME 107.7 fL (80.0-94.0); MEAN PLATELET VOLUME 9.7 fL (7.4-11.4); MONOCYTES # (AUTO) 0.4 10^3/uL (0.0-1.0); MONOCYTES % (AUTO) 5.7 %; NEUTROPHILS % (AUTO) 82.1 %; PLT - PLATELET COUNT 85 10^3/uL (130-450); RED BLOOD COUNT 1.95 10^6/uL (4.70-6.10); RED CELL DISTRIBUTION WIDTH 18.6 % (12.0-15.0); WHITE BLOOD COUNT 6.1 x10^3/uL (4.8-10.8)
[2023-09-30 06:02] LABS: CALCIUM 7.6 mg/dL (8.5-10.3); CREATININE 1.8 mg/dL (0.6-1.3); MAGNESIUM 1.7 mg/dL (1.7-2.3); PHOSPHORUS 2.7 mg/dL (2.5-5.0); POTASSIUM 4.3 mmol/L (3.5-4.5)
[2023-09-30 08:13] LABS: HGB - HEMOGLOBIN 7.3 g/dL (14.0-18.0)
--- NOTE | 2023-09-30 09:12 | PROVIDER PROGRESS NOTE ---
Subjective - Prog Note Date Prog Note Date: 09/30/23 Prog Note Time: 09:10 - Subjective Pt reports feeling: No change Subjective: Unfortunately overnight the patient developed significant hematuria again. There is dark red blood in his Juarez bag and it looks like he is having some clots. A call has been placed to his urologist by the nursing staff and they are awaiting further instructions. The patient states that he feels a little weak but is not having any significant pain. No fever or chills. No chest pain or heart palpitations. No nausea vomiting or diarrhea. He has not had any significant obstruction of his Juarez catheter as of yet. Of note the patient did have a unit of blood yesterday with his hemoglobin i mproving somewhat. However he is hemoglobin only went from 6.4 up to 7.1. Hemoglobin this morning is 7.3. I have recommended due to the worsening hematuria that we just go ahead and give him his second unit of blood that has been on hold. Current Medications - Current Medications Current Medications: Tylenol 650 mg p.o. every 4 hours as needed pain Hydrocodone 5/325 mg 1 p.o. every 4 hours as needed pain Ceftriaxone 1 g daily Hydromorphone 0.5 mg IV every 2 hours as needed severe pain Humalog sliding scale Zofran 4 mg p.o. every 6 hours as needed nausea and bowel Zofran 4 mg IV every 6 hours as needed nausea Vesicare 5 mg p.o. daily Objective - Vital Signs/Intake & Output Reviewed Vital Signs: Yes Vital Signs: Vital Signs x48h Temp Pulse Resp BP Pulse Ox 09/30/23 08:00 37.1 C 96 18 115/62 94 09/30/23 06:22 37.3 C 95 99/61 98 Intake & Output: Intake & Output 09/27/23 09/28/23 09/29/23 09/30/23 23:59 23:59 23:59 23:59 Intake Total 28950 30098 9330 900 Output Total 059967 76253 7050 850 Balance -86361 2500 2280 50 - Objective General Appearance: positive: No acute distress, Other (He is chronically ill- appearing and somewhat pale. He appears to be quite weak) Eyes Bilateral: positive: Normal inspection ENT: positive: ENT inspection nml Neck: positive: Nml inspection Respiratory: positive: Chest non-tender, No respiratory distress, Breath sounds nml Cardiovascular: positive: Regular rate & rhythm, No murmur, No gallop. negative: Friction rub Abdomen: positive: Non-tender, No organomegaly, Nml bowel sounds Skin: positive: Color nml, No rash, Warm, Dry Extremities: positive: Non-tender Neurologic/Psychiatric: positive: Oriented x3, CN's nml (2-12) - Lab Results Fish Bones: 09/30/23 08:09 09/30/23 04:35 Other Labs: Lab Results x24hrs 09/30/23 09/30/23 09/30/23 Range/Units 08:09 04:35 04:35 WBC 6.1 (4.8-10.8) x10^3/uL RBC 1.95 L (4.70-6.10) 10^6/uL Hgb 7.3 L 7.1 L (14.0-18.0) g/dL Hct 22.0 L 21.0 L (42.0-52.0) % MCV 107.7 H (80.0-94.0) fL MCH 36.4 H (27.0-31.0) pg MCHC 33.8 (32.0-36.0) g/dL RDW 18.6 H (12.0-15.0) % Plt Count 85 L (130-450) 10^3/uL MPV 9.7 (7.4-11.4) fL Neut # (Auto) 5.0 (1.5-6.6) 10^3/uL Lymph # (Auto) 0.6 L (1.5-3.5) 10^3/uL [place] # (Auto) 0.4 (0.0-1.0) 10^3/uL Eos # (Auto) 0.1 (0.0-0.7) 10^3/uL Baso # (Auto) 0.0 (0.0-0.1) 10^3/uL Absolute Nucleated RBC 0.00 x10^3/uL Nucleated RBC % 0.0 /100WBC Sodium 134 L (135-145) mmol/L Potassium 4.3 (3.5-4.5) mmol/L Chloride 103 (101-111) mmol/L Carbon Dioxide 24 (21-32) mmol/L Anion Gap 7.0 (6-13) BUN 26 H (6-20) mg/dL Creatinine 1.8 H (0.6-1.3) mg/dL Estimated GFR (MDRD) 37 L (>89) Glucose 102 (74-104) mg/dL Calcium 7.6 L (8.5-10.3) mg/dL Phosphorus 2.7 (2.5-5.0) mg/dL Magnesium 1.7 (1.7-2.3) mg/dL Albumin 3.0 L (3.2-5.5) g/dL Vitamin B12 (180-914) pg/mL Crossmatch IS Only 09/29/23 09/26/23 Range/Units 05:53 18:24 WBC (4.8-10.8) x10^3/uL RBC (4.70-6.10) 10^6/uL Hgb (14.0-18.0) g/dL Hct (42.0-52.0) % MCV (80.0-94.0) fL MCH (27.0-31.0) pg MCHC (32.0-36.0) g/dL RDW (12.0-15.0) % Plt Count (130-450) 10^3/uL MPV (7.4-11.4) fL Neut # (Auto) (1.5-6.6) 10^3/uL Lymph # (Auto) (1.5-3.5) 10^3/uL [place] # (Auto) (0.0-1.0) 10^3/uL Eos # (Auto) (0.0-0.7) 10^3/uL Baso # (Auto) (0.0-0.1) 10^3/uL Absolute Nucleated RBC x10^3/uL Nucleated RBC % /100WBC Sodium (135-145) mmol/L Potassium (3.5-4.5) mmol/L Chloride (101-111) mmol/L Carbon Dioxide (21-32) mmol/L Anion Gap (6-13) BUN (6-20) mg/dL Creatinine (0.6-1.3) mg/dL Estimated GFR (MDRD) (>89) Glucose (74-104) mg/dL Calcium (8.5-10.3) mg/dL Phosphorus (2.5-5.0) mg/dL Magnesium (1.7-2.3) mg/dL Albumin (3.2-5.5) g/dL Vitamin B12 2329 H (180-914) pg/mL Crossmatch IS Only See Detail Sepsis Event Note (H) - Evaluation Current Stage of Sepsis: Ruled out Assessment/Plan - Problem List (1) Gross hematuria Impression: Unfortunately his hematuria significantly worsened overnight. We are awaiting guidance from urology but it appears that he likely will need to go back on CBI. (2) Hydroureter on left Impression: Stable for now. (3) Acute blood loss anemia Impression: The patient will receive 1 unit of packed red blood cells today. Hematuria significantly worsening again. Continue to monitor H&H's (4) Chronic kidney disease, stage 3 Impression: Stable. Renal function has somewhat worsened overnight but does not meet criteria for an acute kidney injury (5) AML (acute myeloblastic leukemia) Impression: Quiescent (6) Bone marrow transplant status Impression: Status post bone marrow transplant. No evidence of complications at this point (7) Danitza's granulomatosis Impression: Quiescent (8) Diabetes Impression: Stable on current regimen (9) Paroxysmal atrial fibrillation Impression: Currently in a sinus rhythm and rate controlled (10) Thrombocytopenia Impression: Likely due to his immunosuppressed state. This certainly does not make his bleeding issues any better. Platelet level is 85 today (11) Pulmonary hemorrhage Impression: He has a history of a pulmonary hemorrhage in the past that was felt to be due to high-dose prednisone. No evidence of recurrence. (12) Sarcopenia Impression: With subsequent ambulatory dysfunction. Physical therapy will see the patient as well as Occupational Therapy. He has [id number] caregivers at home. He is significantly weak and debilitated. Disposition: Inpatient hospitalization remains necessary. The patient is now having worsening hematuria with clots. He likely will need to be placed back on CBI. We need further input from urology. At this point it is not safe for the patient to be discharged home. Time spent: 35 minutes
--- NOTE | 2023-09-30 17:58 | PROVIDER PROGRESS NOTE ---
Subjective - General Admit Date: 09/26/23 Procedure Date: 09/28/23 Post Op Days: 2 Procedure Performed: cystoscopy, bladder biopsy, clot evacuation, fulguration of bleeding etc - Review of Systems General: positive: No symptoms (feeling much better) All Other Systems: positive: Reviewed and negative - Other Other Information/Narrative: overnight his bleeding worsened and cbi restarted this morning No pain or discomfort Objective - Patient Data Reviewed Vital Signs: Yes Vital Signs: Vital Signs x48h Temp Pulse Resp BP Pulse Ox 09/30/23 15:00 36.6 C 85 18 111/61 09/30/23 12:21 37.0 C 88 18 119/63 97 09/30/23 12:06 37.1 C 90 108/66 95 Weight: Weight 09/28/23 09/29/23 09/30/23 23:59 23:59 23:59 Weight (kg) 68.5 kg Intake & Output: Intake and Output Totals x24h 09/28/23 09/29/23 09/30/23 23:59 23:59 23:59 Intake Total 65772 9330 8930 Output Total 48552 7050 85266 Balance 2500 2280 -4520 - Lab Results Lab Results: 09/30/23 08:09 09/30/23 04:35 Other Lab Results: Lab Results x24hrs 09/30/23 09/30/23 09/30/23 Range/Units 10:28 08:09 04:35 WBC (4.8-10.8) x10^3/uL RBC (4.70-6.10) 10^6/uL Hgb 7.3 L (14.0-18.0) g/dL Hct 22.0 L (42.0-52.0) % MCV (80.0-94.0) fL MCH (27.0-31.0) pg MCHC (32.0-36.0) g/dL RDW (12.0-15.0) % Plt Count (130-450) 10^3/uL MPV (7.4-11.4) fL Neut # (Auto) (1.5-6.6) 10^3/uL Lymph # (Auto) (1.5-3.5) 10^3/uL [place] # (Auto) (0.0-1.0) 10^3/uL Eos # (Auto) (0.0-0.7) 10^3/uL Baso # (Auto) (0.0-0.1) 10^3/uL Absolute Nucleated RBC x10^3/uL Nucleated RBC % /100WBC Sodium 134 L (135-145) mmol/L Potassium 4.3 (3.5-4.5) mmol/L Chloride 103 (101-111) mmol/L Carbon Dioxide 24 (21-32) mmol/L Anion Gap 7.0 (6-13) BUN 26 H (6-20) mg/dL Creatinine 1.8 H (0.6-1.3) mg/dL Estimated GFR (MDRD) 37 L (>89) Glucose 102 (74-104) mg/dL Calcium 7.6 L (8.5-10.3) mg/dL Phosphorus 2.7 (2.5-5.0) mg/dL Magnesium 1.7 (1.7-2.3) mg/dL Albumin 3.0 L (3.2-5.5) g/dL Blood Type AB POSITIVE Antibody Screen NEGATIVE Crossmatch IS Only See Detail 09/30/23 Range/Units 04:35 WBC 6.1 (4.8-10.8) x10^3/uL RBC 1.95 L (4.70-6.10) 10^6/uL Hgb 7.1 L (14.0-18.0) g/dL Hct 21.0 L (42.0-52.0) % MCV 107.7 H (80.0-94.0) fL MCH 36.4 H (27.0-31.0) pg MCHC 33.8 (32.0-36.0) g/dL RDW 18.6 H (12.0-15.0) % Plt Count 85 L (130-450) 10^3/uL MPV 9.7 (7.4-11.4) fL Neut # (Auto) 5.0 (1.5-6.6) 10^3/uL Lymph # (Auto) 0.6 L (1.5-3.5) 10^3/uL [place] # (Auto) 0.4 (0.0-1.0) 10^3/uL Eos # (Auto) 0.1 (0.0-0.7) 10^3/uL Baso # (Auto) 0.0 (0.0-0.1) 10^3/uL Absolute Nucleated RBC 0.00 x10^3/uL Nucleated RBC % 0.0 /100WBC Sodium (135-145) mmol/L Potassium (3.5-4.5) mmol/L Chloride (101-111) mmol/L Carbon Dioxide (21-32) mmol/L Anion Gap (6-13) BUN (6-20) mg/dL Creatinine (0.6-1.3) mg/dL Estimated GFR (MDRD) (>89) Glucose (74-104) mg/dL Calcium (8.5-10.3) mg/dL Phosphorus (2.5-5.0) mg/dL Magnesium (1.7-2.3) mg/dL Albumin (3.2-5.5) g/dL Blood Type Antibody Screen Crossmatch IS Only - Current Medications Current Medications: Current Medications Generic Name Dose Route Start Last Admin Trade Name Twanq PRN Reason Stop Dose Admin Hydrocodone Bitart/Acetaminophen 1 tab 09/26/23 16:05 09/29/23 15:49 Hydrocod/Acetam 5/325 Mg Tablet PO 1 tab Q4HR PRN Administration Pain 5 to 7 Carboxymethylcellulose 1 drops 09/27/23 21:23 09/29/23 20:15 Carboxymethylcellulose Ophth Drops EACHEYE 1 drops PRN PRN Administration Dry Eye Cyanocobalamin 1,000 mcg 09/28/23 09:00 09/30/23 08:56 Cyanocobalamin 500 Mcg Tablet PO 1,000 mcg DAILY JUJU Administration Fluticasone Propionate 1 sprays 09/28/23 09:00 09/30/23 08:55 Fluticasone Nasal [place] SHENA 1 spr BID JUJU Administration Hydromorphone HCl 0.5 mg 09/26/23 16:05 09/28/23 22:50 Hydromorphone 0.5 Mg/0.5 Ml Syringe IVP 0.5 mg Q2H PRN Administration Pain 8 to 10 Ceftriaxone Sodium 1 gm/ 100 mls @ 200 mls/hr 09/27/23 09:00 09/30/23 08:55 Sodium Chloride IV 10/04/23 08:59 200 mls/hr DAILY JUJU Administration Insulin Human Lispro 1 - 5 unit 09/26/23 21:00 09/30/23 15:49 Insulin Lispro 300 Unit/3 Ml Pen SUBQ Not Given 0800,1200,1700,2100 [facility] Protocol Multivitamins 1 tab 09/28/23 09:00 09/30/23 08:56 Multivitamin Tablet PO 1 tab DAILY JUJU Administration Ofloxacin 1 drops 09/28/23 09:00 09/30/23 08:56 Ofloxacin 0.3% Ophth Drops LEFTEYE Not Given BID [facility] Pantoprazole Sodium 40 mg 09/28/23 09:00 09/30/23 06:19 Pantoprazole 40 Mg Tablet PO 40 mg QDAC JUJU Administration Polyethylene Glycol 17 gm 09/29/23 09:00 09/29/23 20:21 Polyethylene Glycol 3350 17 Gm Packet PO 17 gm DAILY JUJU Administration Prednisolone 1 drops 09/28/23 09:00 09/30/23 08:55 Prednisolone 1% Ophth Drops 75 Drops/5 Ml Bottle LEFTEYE 1 drops DAILY JUJU Administration Prednisone 5 mg 09/28/23 08:00 09/30/23 08:56 Prednisone 5 Mg Tablet PO 5 mg DAILYWM JUJU Administration Saccharomyces Boulardii 250 mg 09/28/23 09:00 09/30/23 08:56 Saccharomyces Boulardii 250 Mg Capsule PO 250 mg DAILY JUJU Administration Sodium Chloride 10 ml 09/26/23 16:05 09/29/23 15:50 Sodium Chloride Flush 0.9% 10 Ml Syringe IVP 10 ml PRN PRN Administration NEEDED PER PROVIDER ORDERS Sodium Chloride 10 ml 09/26/23 17:00 09/30/23 15:47 Sodium Chloride Flush 0.9% 10 Ml Syringe IVP 10 ml 0100,0900,1700 JUJU Administration Solifenacin 5 mg 09/27/23 09:00 09/30/23 08:56 Solifenacin Succinate 5 Mg Tablet PO 5 mg DAILY JUJU Administration Valacyclovir HCl 500 mg 09/28/23 09:00 09/30/23 08:56 Valacyclovir 500 Mg Tablet PO 500 mg BID JUJU Administration Zinc Sulfate 220 mg 09/28/23 09:00 09/30/23 08:56 Zinc Sulfate 220 Mg Capsule PO 220 mg DAILY JUJU Administration Impression/Plan - Problem List Problem List: Despite having initial good success with his procedure to resolve his hematuria, the hematuria has returned. His hemoglobin did increase appropriately and so I am not overly concerned about an acute blood loss anemia however he is still requiring transfusions and this is a major concern for his long-term care. Ultimately he is in a challenging situation. I do not think he needs another trip to the OR at this time. But I think it may be needed in the future if his anemia worsens acutely. Or if his hematuria worsens acutely. I would like to keep him on CBI overnight and then I will evaluate him in the morning. My concerns about why he continues to bleed multifactorial including: Thrombocytopenia, atypical bladder pathology seen on cystoscopy, mechanical irritation from his ureteral stent and from his Juarez. To this end I will see him tomorrow morning and if his anemia is relatively s table then I will likely remove his catheter and see if this actually improves his hematuria. Frustratingly, if he does require bladder irrigation medication such as Kevin for malignancy would be contraindicated given the fact that he has a left ureteral stent in place. He remains in good spirits
[2023-10-01 07:06] LABS: ALBUMIN 2.9 g/dL (3.2-5.5); CALCIUM 8.1 mg/dL (8.5-10.3); CREATININE 1.7 mg/dL (0.6-1.3); MAGNESIUM 1.7 mg/dL (1.7-2.3); PHOSPHORUS 3.4 mg/dL (2.5-5.0); POTASSIUM 3.9 mmol/L (3.5-4.5)
[2023-10-01 07:28] LABS: BASOPHILS % (AUTO) 0.3 %; EOSINOPHILS # (AUTO) 0.1 10^3/uL (0.0-0.7); EOSINOPHILS % (AUTO) 1.5 %; HCT - HEMATOCRIT 25.6 % (42.0-52.0); HGB - HEMOGLOBIN 8.7 g/dL (14.0-18.0); LYMPHOCYTES # (AUTO) 0.4 10^3/uL (1.5-3.5); LYMPHOCYTES % (AUTO) 7.5 %; MEAN CORPUSCULAR HEMOGLOBIN 35.1 pg (27.0-31.0); MEAN CORPUSCULAR VOLUME 103.2 fL (80.0-94.0); MEAN PLATELET VOLUME 9.8 fL (7.4-11.4); MONOCYTES # (AUTO) 0.5 10^3/uL (0.0-1.0); MONOCYTES % (AUTO) 8.8 %; NEUTROPHILS # (AUTO) 4.8 10^3/uL (1.5-6.6); NEUTROPHILS % (AUTO) 81.1 %; PLT - PLATELET COUNT 80 10^3/uL (130-450); RED BLOOD COUNT 2.48 10^6/uL (4.70-6.10); RED CELL DISTRIBUTION WIDTH 20.6 % (12.0-15.0); SLIDE REVIEW? Indicated; WHITE BLOOD COUNT 5.9 x10^3/uL (4.8-10.8)
[2023-10-01 07:52] LABS: PLATELET ESTIMATE, MANUAL DECREASED (<130,000) (NORMAL); PLATELET MORPHOLOGY NORMAL APPEARANCE (NORMAL)
--- NOTE | 2023-10-01 09:24 | PROVIDER PROGRESS NOTE ---
Subjective - General Admit Date: 09/26/23 Procedure Date: 09/28/23 Post Op Days: 3 Procedure Performed: cystoscopy, bladder biopsy, clot evacuation, fulguration of bleeding etc - Review of Systems General: positive: No symptoms (feeling much better) All Other Systems: positive: Reviewed and negative - Other Other Information/Narrative: no significant issues overnight. He feels quite well. He has been n.p.o. in preparation of a possible procedure today Objective - Patient Data Reviewed Vital Signs: Yes Vital Signs: Vital Signs x48h Temp Pulse Resp BP 10/01/23 08:00 36.7 C 91 18 117/62 Intake & Output: Intake and Output Totals x24h 09/29/23 09/30/23 10/01/23 23:59 23:59 23:59 Intake Total 9330 71535 65297 Output Total 7050 98191 02497 Balance 1435 -0007 -6175 - Lab Results Lab Results: 10/01/23 06:35 10/01/23 06:35 Other Lab Results: Lab Results x24hrs 10/01/23 10/01/23 10/01/23 Range/Units 08:30 06:35 06:35 WBC 5.9 (4.8-10.8) x10^3/uL RBC 2.48 L (4.70-6.10) 10^6/uL Hgb 8.7 L (14.0-18.0) g/dL Hct 25.6 L (42.0-52.0) % MCV 103.2 H (80.0-94.0) fL MCH 35.1 H (27.0-31.0) pg MCHC 34.0 (32.0-36.0) g/dL RDW 20.6 H (12.0-15.0) % Plt Count 80 L (130-450) 10^3/uL MPV 9.8 (7.4-11.4) fL Neut # (Auto) 4.8 (1.5-6.6) 10^3/uL Lymph # (Auto) 0.4 L (1.5-3.5) 10^3/uL [place] # (Auto) 0.5 (0.0-1.0) 10^3/uL Eos # (Auto) 0.1 (0.0-0.7) 10^3/uL Baso # (Auto) 0.0 (0.0-0.1) 10^3/uL Absolute Nucleated RBC 0.00 x10^3/uL Nucleated RBC % 0.0 /100WBC Manual Slide Review Indicated Platelet Estimate DECREASED (<130,000) (NORMAL) Platelet Morphology NORMAL APPEARANCE (NORMAL) RBC Morph Micro Appear 2+ POLYCHROMASIA (NORMAL) Sodium 136 (135-145) mmol/L Potassium 3.9 (3.5-4.5) mmol/L Chloride 105 (101-111) mmol/L Carbon Dioxide 25 (21-32) mmol/L Anion Gap 6.0 (6-13) BUN 21 H (6-20) mg/dL Creatinine 1.7 H (0.6-1.3) mg/dL Estimated GFR (MDRD) 40 L (>89) Glucose 113 H (74-104) mg/dL POC Whole Bld Glucose 113 H (70 - 100) mg/dL Calcium 8.1 L (8.5-10.3) mg/dL Phosphorus 3.4 (2.5-5.0) mg/dL Magnesium 1.7 (1.7-2.3) mg/dL Albumin 2.9 L (3.2-5.5) g/dL Blood Type Antibody Screen Crossmatch IS Only 09/30/23 Range/Units 10:28 WBC (4.8-10.8) x10^3/uL RBC (4.70-6.10) 10^6/uL Hgb (14.0-18.0) g/dL Hct (42.0-52.0) % MCV (80.0-94.0) fL MCH (27.0-31.0) pg MCHC (32.0-36.0) g/dL RDW (12.0-15.0) % Plt Count (130-450) 10^3/uL MPV (7.4-11.4) fL Neut # (Auto) (1.5-6.6) 10^3/uL Lymph # (Auto) (1.5-3.5) 10^3/uL [place] # (Auto) (0.0-1.0) 10^3/uL Eos # (Auto) (0.0-0.7) 10^3/uL Baso # (Auto) (0.0-0.1) 10^3/uL Absolute Nucleated RBC x10^3/uL Nucleated RBC % /100WBC Manual Slide Review Platelet Estimate (NORMAL) Platelet Morphology (NORMAL) RBC Morph Micro Appear (NORMAL) Sodium (135-145) mmol/L Potassium (3.5-4.5) mmol/L Chloride (101-111) mmol/L Carbon Dioxide (21-32) mmol/L Anion Gap (6-13) BUN (6-20) mg/dL Creatinine (0.6-1.3) mg/dL Estimated GFR (MDRD) (>89) Glucose (74-104) mg/dL POC Whole Bld Glucose (70 - 100) mg/dL Calcium (8.5-10.3) mg/dL Phosphorus (2.5-5.0) mg/dL Magnesium (1.7-2.3) mg/dL Albumin (3.2-5.5) g/dL Blood Type AB POSITIVE Antibody Screen NEGATIVE Crossmatch IS Only See Detail - Current Medications Current Medications: Current Medications Generic Name Dose Route Start Last Admin Trade Name Freq PRN Reason Stop Dose Admin Hydrocodone Bitart/Acetaminophen 1 tab 09/26/23 16:05 09/29/23 15:49 Hydrocod/Acetam 5/325 Mg Tablet PO 1 tab Q4HR PRN Administration Pain 5 to 7 Carboxymethylcellulose 1 drops 09/27/23 21:23 09/30/23 20:24 Carboxymethylcellulose Ophth Drops EACHEYE 1 drops PRN PRN Administration Dry Eye Cyanocobalamin 1,000 mcg 09/28/23 09:00 10/01/23 09:02 Cyanocobalamin 500 Mcg Tablet PO 1,000 mcg DAILY JUJU Administration Fluticasone Propionate 1 sprays 09/28/23 09:00 10/01/23 09:11 Fluticasone Nasal [place] SHENA 1 spr BID JUJU Administration Hydromorphone HCl 0.5 mg 09/26/23 16:05 10/01/23 05:12 Hydromorphone 0.5 Mg/0.5 Ml Syringe IVP 0.5 mg Q2H PRN Administration Pain 8 to 10 Ceftriaxone Sodium 1 gm/ 100 mls @ 200 mls/hr 09/27/23 09:00 10/01/23 09:11 Sodium Chloride IV 10/04/23 08:59 200 mls/hr DAILY JUJU Administration Insulin Human Lispro 1 - 5 unit 09/26/23 21:00 10/01/23 08:33 Insulin Lispro 300 Unit/3 Ml Pen SUBQ Not Given 0800,1200,1700,2100 [facility] Protocol Multivitamins 1 tab 09/28/23 09:00 10/01/23 09:02 Multivitamin Tablet PO 1 tab DAILY JUJU Administration Ofloxacin 1 drops 09/28/23 09:00 10/01/23 09:13 Ofloxacin 0.3% Ophth Drops LEFTEYE 1 drops BID JUJU Administration Pantoprazole Sodium 40 mg 09/28/23 09:00 10/01/23 06:43 Pantoprazole 40 Mg Tablet PO 40 mg QDAC JUJU Administration Polyethylene Glycol 17 gm 09/29/23 09:00 10/01/23 09:06 Polyethylene Glycol 3350 17 Gm Packet PO 17 gm DAILY JUJU Administration Prednisolone 1 drops 09/28/23 09:00 10/01/23 09:12 Prednisolone 1% Ophth Drops 75 Drops/5 Ml Bottle LEFTEYE 1 drops DAILY JUJU Administration Prednisone 5 mg 09/28/23 08:00 10/01/23 09:03 Prednisone 5 Mg Tablet PO 5 mg DAILYWM JUJU Administration Saccharomyces Boulardii 250 mg 09/28/23 09:00 10/01/23 09:02 Saccharomyces Boulardii 250 Mg Capsule PO 250 mg DAILY JUJU Administration Sodium Chloride 10 ml 09/26/23 16:05 10/01/23 05:12 Sodium Chloride Flush 0.9% 10 Ml Syringe IVP 10 ml PRN PRN Administration NEEDED PER PROVIDER ORDERS Sodium Chloride 10 ml 09/26/23 17:00 10/01/23 09:13 Sodium Chloride Flush 0.9% 10 Ml Syringe IVP 10 ml 0100,0900,1700 JUJU Administration Solifenacin 5 mg 09/27/23 09:00 10/01/23 09:02 Solifenacin Succinate 5 Mg Tablet PO 5 mg DAILY JUJU Administration Valacyclovir HCl 500 mg 09/28/23 09:00 10/01/23 09:02 Valacyclovir 500 Mg Tablet PO 500 mg BID JUJU Administration Zinc Sulfate 220 mg 09/28/23 09:00 10/01/23 09:02 Zinc Sulfate 220 Mg Capsule PO 220 mg DAILY JUJU Administration - Physical Exam Comments/Other: Hemoglobin significant improved to 8.7 after 1 unit of blood yesterday. His hemoglobin yesterday was 7.3. This is an increase higher than expected. I suspect related to minimal overall oozing his CBI was continued overnight. ABX Reporting Has patient been on IV antibiotics over the past 48 hours?: Yes Impression/Plan - Problem List Problem List: Koko had a good night. His CBI remained on but his irrigation was quite clear in late this morning. His hemoglobin has improved significantly. His vitals are good. He is in good spirits. I have removed his catheter today with the hope that this improves any irritation that may be contributing to his hematuria. Ultimately I consider him to require 3 major criteria for discharge which includes: He must be able to void, his hemoglobin must remain stable, he must not be bleeding enough to cause concern for clot retention. As long as he can fit this criteria score we can get him home with a catheter without any active bleeding issues then hopefully he is on his way to home. We will follow closely. He also is well aware that we may have to return the catheter today I have also stopped his antibiotics
[2023-10-01] MEDS: SENNA 8.6 MG TABLET PO SCH (12:38)
--- NOTE | 2023-10-01 14:55 | PROVIDER PROGRESS NOTE ---
Subjective - Prog Note Date Prog Note Date: 10/01/23 - Subjective Pt reports feeling: Improved Subjective: The patient was seen by urology this morning. His Juarez catheter was removed. He continues with some hematuria but has had no clots. Dr. Salazar is hopeful that everything is settling down. The patient is quite excited to get the Juarez catheter out. We are going to try to get him up today with eyes on discharge in the next day or 2. He denies fever or chills. No chest pain, shortness of breath or cough. No nausea vomiting or diarrhea. His Juarez catheter has been removed. He has been able to void today although he is still having hematuria. No urinary complaints Current Medications - Current Medications Current Medications: Tylenol 650 mg p.o. every 4 hours as needed pain Hydrocodone 5/325 mg 1 p.o. every 4 hours as needed pain Ceftriaxone 1 g daily Hydromorphone 0.5 mg IV every 2 hours as needed severe pain Humalog sliding scale Zofran 4 mg p.o. every 6 hours as needed nausea and bowel Zofran 4 mg IV every 6 hours as needed nausea Vesicare 5 mg p.o. daily Objective - Vital Signs/Intake & Output Reviewed Vital Signs: Yes Vital Signs: Vital Signs x48h Temp Pulse Resp BP 10/01/23 08:00 36.7 C 91 18 117/62 Intake & Output: Intake & Output 09/28/23 09/29/23 09/30/23 10/01/23 23:59 23:59 23:59 23:59 Intake Total 09785 9330 76982 54184 Output Total 14736 7050 96859 79310 Balance 2500 1715 -4389 -8866 - Objective General Appearance: positive: No acute distress, Other (The patient is quite pale and chronically ill-appearing) Eyes Bilateral: positive: Normal inspection ENT: positive: ENT inspection nml Neck: positive: Nml inspection Respiratory: positive: Chest non-tender, No respiratory distress. negative: Wheezes, Rales, Rhonchi Cardiovascular: positive: Regular rate & rhythm, No murmur, No gallop. negative: Friction rub Abdomen: positive: Non-tender, No organomegaly, Nml bowel sounds, No distention Skin: positive: Color nml, No rash, Warm, Dry Extremities: positive: Non-tender, Full ROM Neurologic/Psychiatric: positive: Oriented x3, CN's nml (2-12) - Lab Results Fish Bones: 10/01/23 06:35 10/01/23 06:35 Other Labs: Lab Results x24hrs 10/01/23 10/01/23 10/01/23 Range/Units 08:30 06:35 06:35 WBC 5.9 (4.8-10.8) x10^3/uL RBC 2.48 L (4.70-6.10) 10^6/uL Hgb 8.7 L (14.0-18.0) g/dL Hct 25.6 L (42.0-52.0) % MCV 103.2 H (80.0-94.0) fL MCH 35.1 H (27.0-31.0) pg MCHC 34.0 (32.0-36.0) g/dL RDW 20.6 H (12.0-15.0) % Plt Count 80 L (130-450) 10^3/uL MPV 9.8 (7.4-11.4) fL Neut # (Auto) 4.8 (1.5-6.6) 10^3/uL Lymph # (Auto) 0.4 L (1.5-3.5) 10^3/uL [place] # (Auto) 0.5 (0.0-1.0) 10^3/uL Eos # (Auto) 0.1 (0.0-0.7) 10^3/uL Baso # (Auto) 0.0 (0.0-0.1) 10^3/uL Absolute Nucleated RBC 0.00 x10^3/uL Nucleated RBC % 0.0 /100WBC Manual Slide Review Indicated Platelet Estimate DECREASED (<130,000) (NORMAL) Platelet Morphology NORMAL APPEARANCE (NORMAL) RBC Morph Micro Appear 2+ POLYCHROMASIA (NORMAL) Sodium 136 (135-145) mmol/L Potassium 3.9 (3.5-4.5) mmol/L Chloride 105 (101-111) mmol/L Carbon Dioxide 25 (21-32) mmol/L Anion Gap 6.0 (6-13) BUN 21 H (6-20) mg/dL Creatinine 1.7 H (0.6-1.3) mg/dL Estimated GFR (MDRD) 40 L (>89) Glucose 113 H (74-104) mg/dL POC Whole Bld Glucose 113 H (70 - 100) mg/dL Calcium 8.1 L (8.5-10.3) mg/dL Phosphorus 3.4 (2.5-5.0) mg/dL Magnesium 1.7 (1.7-2.3) mg/dL Albumin 2.9 L (3.2-5.5) g/dL Crossmatch IS Only 09/30/23 Range/Units 10:28 WBC (4.8-10.8) x10^3/uL RBC (4.70-6.10) 10^6/uL Hgb (14.0-18.0) g/dL Hct (42.0-52.0) % MCV (80.0-94.0) fL MCH (27.0-31.0) pg MCHC (32.0-36.0) g/dL RDW (12.0-15.0) % Plt Count (130-450) 10^3/uL MPV (7.4-11.4) fL Neut # (Auto) (1.5-6.6) 10^3/uL Lymph # (Auto) (1.5-3.5) 10^3/uL [place] # (Auto) (0.0-1.0) 10^3/uL Eos # (Auto) (0.0-0.7) 10^3/uL Baso # (Auto) (0.0-0.1) 10^3/uL Absolute Nucleated RBC x10^3/uL Nucleated RBC % /100WBC Manual Slide Review Platelet Estimate (NORMAL) Platelet Morphology (NORMAL) RBC Morph Micro Appear (NORMAL) Sodium (135-145) mmol/L Potassium (3.5-4.5) mmol/L Chloride (101-111) mmol/L Carbon Dioxide (21-32) mmol/L Anion Gap (6-13) BUN (6-20) mg/dL Creatinine (0.6-1.3) mg/dL Estimated GFR (MDRD) (>89) Glucose (74-104) mg/dL POC Whole Bld Glucose (70 - 100) mg/dL Calcium (8.5-10.3) mg/dL Phosphorus (2.5-5.0) mg/dL Magnesium (1.7-2.3) mg/dL Albumin (3.2-5.5) g/dL Crossmatch IS Only See Detail ABX Reporting Has patient been on IV antibiotics over the past 48 hours?: Yes Sepsis Event Note (H) - Evaluation Current Stage of Sepsis: Ruled out Assessment/Plan - Problem List (1) Gross hematuria Impression: The patient is no longer having clots. His Juarez catheter was removed today. Urology states that it is going to be normal for him to have ongoing hematuria. However it is okay as long as his blood counts remained stable and he is able to void and not having clots. Continue to monitor. Juarez catheter will remain out for now. (2) Hydroureter on left Impression: The patient has a stent in place. Plan of care per urology (3) Acute blood loss anemia Impression: The patient received 2 units of packed red blood cells. Hemoglobin is stable. 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 No evidence of recurrence (6) Bone marrow transplant status Impression: No issues during this hospitalization (7) Danitza's granulomatosis Impression: Quiescent (8) Diabetes Impression: Will stop fingerstick blood sugars as his blood sugars have been normal (9) Paroxysmal atrial fibrillation Impression: Currently in a sinus rhythm and rate controlled (10) Thrombocytopenia Impression: He has chronic thrombocytopenia. Continue to monitor (11) Pulmonary hemorrhage Impression: Secondary to high-dose prednisone use in the past. No issues during this hospitalization (12) Sarcopenia Impression: Patient is significantly weak and debilitated with subsequent ambulatory dysfunction. Physical therapy and Occupational Therapy have been consulted to see the patient Disposition: Inpatient hospitalization remains necessary. Overall the patient had his Juarez catheter removed. If his blood counts remained stable he possibly could go home in the next 24 to 48 hours Time spent: 35 minutes
[2023-10-01 15:54] LABS: HCT - HEMATOCRIT 24.2 % (42.0-52.0); HGB - HEMOGLOBIN 8.3 g/dL (14.0-18.0)
[2023-10-01] MEDS: OFLOXACIN 0.3% OPHTH DROPS LEFTEYE SCH (22:08)
[2023-10-02 00:22] LABS: HCT - HEMATOCRIT 23.2 % (42.0-52.0)
[2023-10-02 04:52] LABS: BASOPHILS % (AUTO) 0.3 %; EOSINOPHILS # (AUTO) 0.1 10^3/uL (0.0-0.7); EOSINOPHILS % (AUTO) 1.7 %; HCT - HEMATOCRIT 24.7 % (42.0-52.0); LYMPHOCYTES # (AUTO) 0.5 10^3/uL (1.5-3.5); LYMPHOCYTES % (AUTO) 8.4 %; MEAN CORPUSCULAR HEMOGLOBIN 33.8 pg (27.0-31.0); MEAN CORPUSCULAR HGB CONC 32.4 g/dL (32.0-36.0); MEAN CORPUSCULAR VOLUME 104.2 fL (80.0-94.0); MEAN PLATELET VOLUME 9.7 fL (7.4-11.4); MONOCYTES # (AUTO) 0.5 10^3/uL (0.0-1.0); NEUTROPHILS # (AUTO) 5.3 10^3/uL (1.5-6.6); NEUTROPHILS % (AUTO) 81.7 %; PLT - PLATELET COUNT 81 10^3/uL (130-450); RED BLOOD COUNT 2.37 10^6/uL (4.70-6.10); RED CELL DISTRIBUTION WIDTH 19.1 % (12.0-15.0); WHITE BLOOD COUNT 6.4 x10^3/uL (4.8-10.8)
[2023-10-02 05:12] LABS: ALBUMIN 3.1 g/dL (3.2-5.5); CALCIUM 8.3 mg/dL (8.5-10.3); CREATININE 1.6 mg/dL (0.6-1.3); MAGNESIUM 1.7 mg/dL (1.7-2.3); POTASSIUM 3.9 mmol/L (3.5-4.5)
--- NOTE | 2023-10-02 07:32 | PROVIDER PROGRESS NOTE ---
Subjective - General Admit Date: 09/26/23 Procedure Date: 09/28/23 Post Op Days: 4 Procedure Performed: cystoscopy, bladder biopsy, clot evacuation, fulguration of bleeding etc - Review of Systems General: positive: No symptoms (feeling much better) All Other Systems: positive: Reviewed and negative - Other Other Information/Narrative: Overnight the patient had significantly more clots in his urine. He felt like he was emptying well until this morning where he developed some pain in his penis. This has resolved by the time I saw him. His hemoglobin is dropped from 8.7-8 Objective - Patient Data Intake & Output: Intake and Output Totals x24h 09/30/23 10/01/23 10/02/23 23:59 23:59 23:59 Intake Total 35881 85372 50 Output Total 03307 04604 550 Balance -5545 -2000 -500 - Lab Results Lab Results: 10/02/23 04:36 10/02/23 04:36 Other Lab Results: Lab Results x24hrs 10/02/23 10/02/23 10/02/23 Range/Units 04:36 04:36 00:15 WBC 6.4 (4.8-10.8) x10^3/uL RBC 2.37 L (4.70-6.10) 10^6/uL Hgb 8.0 L 8.0 L (14.0-18.0) g/dL Hct 24.7 L 23.2 L (42.0-52.0) % MCV 104.2 H (80.0-94.0) fL MCH 33.8 H (27.0-31.0) pg MCHC 32.4 (32.0-36.0) g/dL RDW 19.1 H (12.0-15.0) % Plt Count 81 L (130-450) 10^3/uL MPV 9.7 (7.4-11.4) fL Neut # (Auto) 5.3 (1.5-6.6) 10^3/uL Lymph # (Auto) 0.5 L (1.5-3.5) 10^3/uL [place] # (Auto) 0.5 (0.0-1.0) 10^3/uL Eos # (Auto) 0.1 (0.0-0.7) 10^3/uL Baso # (Auto) 0.0 (0.0-0.1) 10^3/uL Absolute Nucleated RBC 0.00 x10^3/uL Nucleated RBC % 0.0 /100WBC Platelet Estimate (NORMAL) Platelet Morphology (NORMAL) RBC Morph Micro Appear (NORMAL) Sodium 132 L (135-145) mmol/L Potassium 3.9 (3.5-4.5) mmol/L Chloride 102 (101-111) mmol/L Carbon Dioxide 25 (21-32) mmol/L Anion Gap 5.0 L (6-13) BUN 22 H (6-20) mg/dL Creatinine 1.6 H (0.6-1.3) mg/dL Estimated GFR (MDRD) 43 L (>89) Glucose 104 (74-104) mg/dL POC Whole Bld Glucose (70 - 100) mg/dL Calcium 8.3 L (8.5-10.3) mg/dL Phosphorus 3.0 (2.5-5.0) mg/dL Magnesium 1.7 (1.7-2.3) mg/dL Albumin 3.1 L (3.2-5.5) g/dL 10/01/23 10/01/23 10/01/23 Range/Units 16:47 15:47 08:30 WBC (4.8-10.8) x10^3/uL RBC (4.70-6.10) 10^6/uL Hgb 8.3 L (14.0-18.0) g/dL Hct 24.2 L (42.0-52.0) % MCV (80.0-94.0) fL MCH (27.0-31.0) pg MCHC (32.0-36.0) g/dL RDW (12.0-15.0) % Plt Count (130-450) 10^3/uL MPV (7.4-11.4) fL Neut # (Auto) (1.5-6.6) 10^3/uL Lymph # (Auto) (1.5-3.5) 10^3/uL [place] # (Auto) (0.0-1.0) 10^3/uL Eos # (Auto) (0.0-0.7) 10^3/uL Baso # (Auto) (0.0-0.1) 10^3/uL Absolute Nucleated RBC x10^3/uL Nucleated RBC % /100WBC Platelet Estimate (NORMAL) Platelet Morphology (NORMAL) RBC Morph Micro Appear (NORMAL) Sodium (135-145) mmol/L Potassium (3.5-4.5) mmol/L Chloride (101-111) mmol/L Carbon Dioxide (21-32) mmol/L Anion Gap (6-13) BUN (6-20) mg/dL Creatinine (0.6-1.3) mg/dL Estimated GFR (MDRD) (>89) Glucose (74-104) mg/dL POC Whole Bld Glucose 117 H 113 H (70 - 100) mg/dL Calcium (8.5-10.3) mg/dL Phosphorus (2.5-5.0) mg/dL Magnesium (1.7-2.3) mg/dL Albumin (3.2-5.5) g/dL 10/01/23 Range/Units 06:35 WBC (4.8-10.8) x10^3/uL RBC (4.70-6.10) 10^6/uL Hgb (14.0-18.0) g/dL Hct (42.0-52.0) % MCV (80.0-94.0) fL MCH (27.0-31.0) pg MCHC (32.0-36.0) g/dL RDW (12.0-15.0) % Plt Count (130-450) 10^3/uL MPV (7.4-11.4) fL Neut # (Auto) 4.8 (1.5-6.6) 10^3/uL Lymph # (Auto) 0.4 L (1.5-3.5) 10^3/uL [place] # (Auto) 0.5 (0.0-1.0) 10^3/uL Eos # (Auto) 0.1 (0.0-0.7) 10^3/uL Baso # (Auto) 0.0 (0.0-0.1) 10^3/uL Absolute Nucleated RBC 0.00 x10^3/uL Nucleated RBC % 0.0 /100WBC Platelet Estimate DECREASED (<130,000) (NORMAL) Platelet Morphology NORMAL APPEARANCE (NORMAL) RBC Morph Micro Appear 2+ POLYCHROMASIA (NORMAL) Sodium (135-145) mmol/L Potassium (3.5-4.5) mmol/L Chloride (101-111) mmol/L Carbon Dioxide (21-32) mmol/L Anion Gap (6-13) BUN (6-20) mg/dL Creatinine (0.6-1.3) mg/dL Estimated GFR (MDRD) (>89) Glucose (74-104) mg/dL POC Whole Bld Glucose (70 - 100) mg/dL Calcium (8.5-10.3) mg/dL Phosphorus (2.5-5.0) mg/dL Magnesium (1.7-2.3) mg/dL Albumin (3.2-5.5) g/dL - Current Medications Current Medications: Current Medications Generic Name Dose Route Start Last Admin Trade Name Freq PRN Reason Stop Dose Admin Hydrocodone Bitart/Acetaminophen 1 tab 09/26/23 16:05 09/29/23 15:49 Hydrocod/Acetam 5/325 Mg Tablet PO 1 tab Q4HR PRN Administration Pain 5 to 7 Carboxymethylcellulose 1 drops 09/27/23 21:23 09/30/23 20:24 Carboxymethylcellulose Ophth Drops EACHEYE 1 drops PRN PRN Administration Dry Eye Cyanocobalamin 1,000 mcg 09/28/23 09:00 10/01/23 09:02 Cyanocobalamin 500 Mcg Tablet PO 1,000 mcg DAILY JUJU Administration Fluticasone Propionate 1 sprays 09/28/23 09:00 10/01/23 22:07 Fluticasone Nasal [place] SHENA 1 spr BID JUJU Administration Hydromorphone HCl 0.5 mg 09/26/23 16:05 10/02/23 06:47 Hydromorphone 0.5 Mg/0.5 Ml Syringe IVP 0.5 mg Q2H PRN Administration Pain 8 to 10 Insulin Human Lispro 1 - 5 unit 09/26/23 21:00 10/01/23 22:13 Insulin Lispro 300 Unit/3 Ml Pen SUBQ Not Given 0800,1200,1700,2100 [facility] Protocol Multivitamins 1 tab 09/28/23 09:00 10/01/23 09:02 Multivitamin Tablet PO 1 tab DAILY JUJU Administration Ofloxacin 1 drops 10/01/23 21:00 10/01/23 22:08 Ofloxacin 0.3% Ophth Drops LEFTEYE 1 drp QPM JUJU Administration Pantoprazole Sodium 40 mg 09/28/23 09:00 10/02/23 06:02 Pantoprazole 40 Mg Tablet PO 40 mg QDAC JUJU Administration Polyethylene Glycol 17 gm 09/29/23 09:00 10/01/23 09:06 Polyethylene Glycol 3350 17 Gm Packet PO 17 gm DAILY JUJU Administration Prednisolone 1 drops 09/28/23 09:00 10/01/23 09:12 Prednisolone 1% Ophth Drops 75 Drops/5 Ml Bottle LEFTEYE 1 drops DAILY JUJU Administration Prednisone 5 mg 09/28/23 08:00 10/01/23 09:03 Prednisone 5 Mg Tablet PO 5 mg DAILYWM JUJU Administration Saccharomyces Boulardii 250 mg 09/28/23 09:00 10/01/23 09:02 Saccharomyces Boulardii 250 Mg Capsule PO 250 mg DAILY JUJU Administration Senna 8.6 - 17.2 mg 10/01/23 13:00 10/01/23 12:38 Senna 8.6 Mg Tablet PO 8.6 mg DAILY JUJU Administration Sodium Chloride 10 ml 09/26/23 16:05 10/01/23 05:12 Sodium Chloride Flush 0.9% 10 Ml Syringe IVP 10 ml PRN PRN Administration NEEDED PER PROVIDER ORDERS Sodium Chloride 10 ml 09/26/23 17:00 10/02/23 02:04 Sodium Chloride Flush 0.9% 10 Ml Syringe IVP 10 ml 0100,0900,1700 JUJU Administration Solifenacin 5 mg 09/27/23 09:00 10/01/23 09:02 Solifenacin Succinate 5 Mg Tablet PO 5 mg DAILY JUJU Administration Valacyclovir HCl 500 mg 09/28/23 09:00 10/01/23 22:07 Valacyclovir 500 Mg Tablet PO 500 mg BID JUJU Administration Zinc Sulfate 220 mg 09/28/23 09:00 10/01/23 09:02 Zinc Sulfate 220 Mg Capsule PO 220 mg DAILY JUJU Administration - Physical Exam General Appearance: positive: No acute distress Respiratory: positive: Breath sounds nml Cardiovascular: positive: Regular rate & rhythm ABX Reporting Has patient been on IV antibiotics over the past 48 hours?: No Impression/Plan - Problem List Problem List: He continues to have hematuria which seems to be worsening with clots. I think he will go into retention quite soon. To this end I recommend he go to the OR for another cystoscopy, fulguration, clot evacuation. I will also likely remove his left stent as I think is contributing to his hematuria. The risk, benefits, alternatives were discussed the patient. Patient states understanding consents to above plan. N.p.o. for now
[2023-10-02 07:57] LABS: HCT - HEMATOCRIT 23.5 % (42.0-52.0); HGB - HEMOGLOBIN 7.8 g/dL (14.0-18.0)
--- NOTE | 2023-10-02 10:03 | ANESTHESIA ---
Pre-Anesthesia VS, & Labs - Diagnosis Diagnosis Gross hematuria Left hydroureteronephrosis bladder calcification - Procedure Cystoscopy Vital Signs: Temp Pulse Resp BP Pulse Ox O2 Flow Rate 36.7 C 89 18 115/70 94 10/02/23 08:00 10/02/23 08:00 10/02/23 08:00 10/02/23 08:00 10/02/23 08:00 Height: 5 ft 7 in Weight (kg): 68.5 kg Body Mass Index: 23.6 BMI Classification: Normal - Lab Results Current Lab Results: Laboratory Tests 10/02/23 07:45: Hgb 7.8 L, Hct 23.5 L 10/02/23 04:36: Sodium 132 L, Potassium 3.9, Chloride 102, Carbon Dioxide 25, Anion Gap 5.0 L, BUN 22 H, Creatinine 1.6 H, Estimated GFR (MDRD) 43 L, Glucose 104, Calcium 8.3 L, Phosphorus 3.0, Magnesium 1.7, Albumin 3.1 L 10/02/23 04:36: WBC 6.4, RBC 2.37 L, Hgb 8.0 L, Hct 24.7 L, MCV 104.2 H, MCH 33.8 H, MCHC 32.4, RDW 19.1 H, Plt Count 81 L, MPV 9.7, Neut # (Auto) 5.3, Lymph # (Auto) 0.5 L, [place] # (Auto) 0.5, Eos # (Auto) 0.1, Baso # (Auto) 0.0, Absolute Nucleated RBC 0.00, Nucleated RBC % 0.0 10/02/23 00:15: Hgb 8.0 L, Hct 23.2 L 10/01/23 16:47: POC Whole Bld Glucose 117 H 10/01/23 15:47: Hgb 8.3 L, Hct 24.2 L 10/01/23 08:30: POC Whole Bld Glucose 113 H 10/01/23 06:35: Sodium 136, Potassium 3.9, Chloride 105, Carbon Dioxide 25, Anion Gap 6.0, BUN 21 H, Creatinine 1.7 H, Estimated GFR (MDRD) 40 L, Glucose 113 H, Calcium 8.1 L, Phosphorus 3.4, Magnesium 1.7, Albumin 2.9 L 10/01/23 06:35: WBC 5.9, RBC 2.48 L, Hgb 8.7 L, Hct 25.6 L, MCV 103.2 H, MCH 35.1 H, MCHC 34.0, RDW 20.6 H, Plt Count 80 L, MPV 9.8, Neut # (Auto) 4.8, Lymph # (Auto) 0.4 L, [place] # (Auto) 0.5, Eos # (Auto) 0.1, Baso # (Auto) 0.0, Absolute Nucleated RBC 0.00, Nucleated RBC % 0.0, Manual Slide Review Indicated, Platelet Estimate DECREASED (<130,000), Platelet Morphology NORMAL APPEARANCE, RBC Morph Micro Appear 2+ POLYCHROMASIA 09/30/23 10:28: Blood Type AB POSITIVE, Antibody Screen NEGATIVE, Crossmatch IS Only See Detail 09/30/23 08:09: Hgb 7.3 L, Hct 22.0 L 09/30/23 04:35: Sodium 134 L, Potassium 4.3, Chloride 103, Carbon Dioxide 24, Anion Gap 7.0, BUN 26 H, Creatinine 1.8 H, Estimated GFR (MDRD) 37 L, Glucose 102, Calcium 7.6 L, Phosphorus 2.7, Magnesium 1.7, Albumin 3.0 L 09/30/23 04:35: WBC 6.1, RBC 1.95 L, Hgb 7.1 L, Hct 21.0 L, MCV 107.7 H, MCH 36.4 H, MCHC 33.8, RDW 18.6 H, Plt Count 85 L, MPV 9.7, Neut # (Auto) 5.0, Lymph # (Auto) 0.6 L, [place] # (Auto) 0.4, Eos # (Auto) 0.1, Baso # (Auto) 0.0, Absolute Nucleated RBC 0.00, Nucleated RBC % 0.0 09/29/23 05:53: Vitamin B12 2329 H 09/29/23 05:35: Sodium 136, Potassium 4.4, Chloride 107, Carbon Dioxide 24, Anion Gap 5.0 L, BUN 20, Creatinine 1.5 H, Estimated GFR (MDRD) 46 L, Glucose 1 47 H, Calcium 8.3 L, Phosphorus 3.7, Magnesium 1.9, Albumin 2.9 L 09/29/23 05:35: WBC 6.3, RBC 1.73 L, Hgb 6.4 L*, Hct 19.6 L*, MCV 113.3 H, MCH 37.0 H, MCHC 32.7, RDW 13.1, Plt Count 82 L, MPV 9.3, Neut # (Auto) 5.5, Lymph # (Auto) 0.3 L, [place] # (Auto) 0.3, Eos # (Auto) 0.0, Baso # (Auto) 0.0, Absolute Nucleated RBC 0.00, Nucleated RBC % 0.0 09/28/23 05:17: Sodium 136, Potassium 4.0, Chloride 107, Carbon Dioxide 21, Anion Gap 8.0, BUN 21 H, Creatinine 1.6 H, Estimated GFR (MDRD) 43 L, Glucose 100, Calcium 8.5, Phosphorus 3.6, Magnesium 1.9, Albumin 3.2 09/28/23 05:17: WBC 4.7 L, RBC 1.96 L, Hgb 7.5 L, Hct 22.4 L, MCV 114.3 H, MCH 38.3 H, MCHC 33.5, RDW 13.4, Plt Count 88 L, MPV 9.4, Neut # (Auto) 3.8, Lymph # (Auto) 0.4 L, [place] # (Auto) 0.4, Eos # (Auto) 0.1, Baso # (Auto) 0.0, Absolute Nucleated RBC 0.00, Nucleated RBC % 0.0, Manual Slide Review Indicated, Platelet Estimate DECREASED (<130,000), RBC Morph Micro Appear 1+ HYPOCHROMASIA 09/27/23 17:54: Hgb 7.3 L, Hct 21.8 L 09/27/23 08:34: Hgb 7.3 L, Hct 22.5 L 09/27/23 05:27: Sodium 135, Potassium 4.1, Chloride 108, Carbon Dioxide 19 L, Anion Gap 8.0, BUN 24 H, Creatinine 1.7 H, Estimated GFR (MDRD) 40 L, Glucose 97, Calcium 8.1 L 09/27/23 05:27: WBC 5.3, RBC 2.03 L, Hgb 7.7 L, Hct 24.0 L, MCV 118.2 H, MCH 37.9 H, MCHC 32.1, RDW 13.3, Plt Count 83 L, MPV 9.7, Neut # (Auto) 4.2, Lymph # (Auto) 0.5 L, [place] # (Auto) 0.5, Eos # (Auto) 0.1, Baso # (Auto) 0.0, Absolute Nucleated RBC 0.00, Nucleated RBC % 0.0, Manual Slide Review Indicated, Platelet Estimate DECREASED (<130,000), RBC Morph Micro Appear 2+ MACROCYTOSIS 09/27/23 00:25: Hgb 9.1 L, Hct 26.6 L 09/26/23 21:34: POC Whole Bld Glucose 98 09/26/23 18:24: Hgb 8.3 L, Hct 25.1 L 09/26/23 18:24: Blood Type AB POSITIVE, Antibody Screen NEGATIVE, Crossmatch IS Only See Detail 09/26/23 15:15: PT 12.8 H, INR 1.2, APTT 26.6 09/26/23 15:15: Sodium 135, Potassium 4.2, Chloride 107, Carbon Dioxide 22, Anion Gap 6.0, BUN 29 H, Creatinine 1.7 H, Estimated GFR (MDRD) 40 L, Glucose 125 H, Calcium 8.2 L, Total Bilirubin 0.4, AST 12, ALT 17, Alkaline Phosphatase 74, Total Protein 5.6 L, Albumin 3.0 L, Globulin 2.6, Albumin/Globulin Ratio 1.2, Lipase 16 09/26/23 15:15: WBC 5.9, RBC 2.13 L, Hgb 8.0 L, Hct 24.1 L, MCV 113.1 H, MCH 37.6 H, MCHC 33.2, RDW 13.2, Plt Count 83 L, MPV 9.1, Neut # (Auto) 5.1, Lymph # (Auto) 0.3 L, [place] # (Auto) 0.4, Eos # (Auto) 0.0, Baso # (Auto) 0.0, Absolute Nucleated RBC 0.00, Nucleated RBC % 0.0, Manual Slide Review Indicated, Platelet Estimate DECREASED (<130,000), Platelet Morphology NORMAL APPEARANCE, RBC Morph Micro Appear 2+ MACROCYTOSIS Fish Bones: 10/02/23 07:45 10/02/23 04:36 Home Medications and Allergies Home Medications: Ambulatory Orders Metoprolol Tartrate [Lopressor] 12.5 mg PO BID 09/27/23 Multivitamin [Theragran] 1 each PO DAILY 09/27/23 Active Medications Acetaminophen (Acetaminophen 325 Mg Tablet) 650 mg PO Q4HR PRN PRN Reason: Pain 1 to 4, or Fever Hydrocodone Bitart/Acetaminophen (Hydrocod/Acetam 5/325 Mg Tablet) 1 tab PO Q4HR PRN PRN Reason: Pain 5 to 7 Last Admin: 09/29/23 15:49 Dose: 1 tab Carboxymethylcellulose (Carboxymethylcellulose Ophth Drops) 1 drops EACHEYE PRN PRN PRN Reason: Dry Eye Last Admin: 09/30/23 20:24 Dose: 1 drops Cyanocobalamin (Cyanocobalamin 500 Mcg Tablet) 1,000 mcg PO DAILY ON LICENSE OF [facility] Last Admin: 10/01/23 09:02 Dose: 1,000 mcg Docusate Sodium (Docusate Sodium 250 Mg Capsule) 250 - 500 mg PO DAILY ON LICENSE OF [facility] Fluticasone Propionate (Fluticasone Nasal [place]) 1 sprays SHENA BID ON LICENSE OF [facility] Last Admin: 10/01/23 22:07 Dose: 1 spr Hydromorphone HCl (Hydromorphone 0.5 Mg/0.5 Ml Syringe) 0.5 mg IVP Q2H PRN PRN Reason: Pain 8 to 10 Last Admin: 10/02/23 09:17 Dose: 0.5 mg Insulin Human Lispro (Insulin Lispro 300 Unit/3 Ml Pen) 1 - 5 unit SUBQ 0800,1200,1700,2100 ON LICENSE OF [facility]; Protocol Last Admin: 10/01/23 22:13 Dose: Not Given Multivitamins (Multivitamin Tablet) 1 tab PO DAILY ON LICENSE OF [facility] Last Admin: 10/01/23 09:02 Dose: 1 tab Ofloxacin (Ofloxacin 0.3% Ophth Drops) 1 drops LEFTEYE QPM ON LICENSE OF [facility] Last Admin: 10/01/23 22:08 Dose: 1 drp Ondansetron HCl (Ondansetron Odt 4 Mg Tablet) 4 mg TL Q6HR PRN PRN Reason: Nausea / Vomiting Ondansetron HCl (Ondansetron 4 Mg/2 Ml Vial) 4 mg IVP Q6HR PRN PRN Reason: Nausea / Vomiting Pantoprazole Sodium (Pantoprazole 40 Mg Tablet) 40 mg PO QDAC ON LICENSE OF [facility] Last Admin: 10/02/23 06:02 Dose: 40 mg Polyethylene Glycol (Polyethylene Glycol 3350 17 Gm Packet) 17 gm PO DAILY ON LICENSE OF [facility] Last Admin: 10/01/23 09:06 Dose: 17 gm Prednisolone (Prednisolone 1% Ophth Drops 75 Drops/5 Ml Bottle) 1 drops LEFTEYE DAILY ON LICENSE OF [facility] Last Admin: 10/01/23 09:12 Dose: 1 drops Prednisone (Prednisone 5 Mg Tablet) 5 mg PO DAILYWM ON LICENSE OF [facility] Last Admin: 10/01/23 09:03 Dose: 5 mg Saccharomyces Boulardii (Saccharomyces Boulardii 250 Mg Capsule) 250 mg PO DAILY ON LICENSE OF [facility] Last Admin: 10/01/23 09:02 Dose: 250 mg Senna (Senna 8.6 Mg Tablet) 8.6 - 17.2 mg PO DAILY ON LICENSE OF [facility] Last Admin: 10/01/23 12:38 Dose: 8.6 mg Senna (Senna 8.6 Mg Tablet) 17.2 - 25.8 mg PO Q6H ON LICENSE OF [facility] Stop: 10/03/23 03:01 Sodium Chloride (Sodium Chloride Flush 0.9% 10 Ml Syringe) 10 ml IVP PRN PRN PRN Reason: NEEDED PER PROVIDER ORDERS Last Admin: 10/01/23 05:12 Dose: 10 ml Sodium Chloride (Sodium Chloride Flush 0.9% 10 Ml Syringe) 10 ml IVP 0100,09 00,1700 ON LICENSE OF [facility] Last Admin: 10/02/23 02:04 Dose: 10 ml Solifenacin (Solifenacin Succinate 5 Mg Tablet) 5 mg PO DAILY ON LICENSE OF [facility] Last Admin: 10/01/23 09:02 Dose: 5 mg Valacyclovir HCl (Valacyclovir 500 Mg Tablet) 500 mg PO BID ON LICENSE OF [facility] Last Admin: 10/01/23 22:07 Dose: 500 mg Zinc Sulfate (Zinc Sulfate 220 Mg Capsule) 220 mg PO DAILY ON LICENSE OF [facility] Last Admin: 10/01/23 09:02 Dose: 220 mg Cyanocobalamin (Vitamin B-12) [Vitamin B-12] 5,000 mcg PO DAILY 09/19/23 Fluticasone [Flonase] 1 applic INH BID 09/19/23 Lactobacillus Combination No.4 [Probiotic] 1 cap PO DAILY 09/19/23 Magnesium Glycinate 1 tab PO DAILY 09/19/23 Melatonin 1 tab PO PRN PRN 09/19/23 Ofloxacin 0.3% Ophth Drops [Ocuflox 0.3% Ophth Drops] 1 drops LEFTEYE QPM 09/19/23 Panax, Vincentian Ginsg/B12/Royl [Ginseng Complex Capsule] 1 cap PO DAILY 09/19/23 Pantoprazole [Protonix] 1 tab PO DAILY 09/19/23 Prednisone [Jazzmine] 1 tab PO DAILY 09/19/23 Zinc Gluconate [Zinc] 1 tab PO DAILY 09/19/23 prednisoLONE 1% OPHTH DROPS [Pred Forte 1% Ophth Drops] 1 drops LEFTEYE DAILY 09/19/23 valACYclovir [Valtrex] 1 tab PO BID 09/19/23 Metoprolol Tartrate [Lopressor] 12.5 mg PO BID 09/27/23 Multivitamin [Theragran] 1 each PO DAILY 09/27/23 Allergies/Adverse Reactions: Allergies Allergy/AdvReac Type Severity Reaction Status Date / Time No Known Drug Allergies Allergy Verified 09/26/23 14:23 Anes History & Medical History - Anesthetic History Anesthesia Complications: reports: No previous complications - Medical History Cardiovascular: reports: Coronary artery disease, Atrial fibrillation Pulmonary: reports: None Gastrointestinal: reports: GERD, Hemorrhoids Urinary: reports: Incontinence, Chronic bladder infection, Frequency Neuro: reports: None Musculoskeletal: reports: Fatigue, Other Endocrine/Autoimmune: reports: None, Other Blood Disorders: reports: None Skin: reports: None, Other Smoking Status: Never smoker - Surgical History General: reports: Colonoscopy Eyes Ears Nose Throat (EENT): reports: Cataracts Orthopedic: reports: Knee replacement Exam General: Alert, Oriented x3, Cooperative Dental: WNL Mouth Opening: Greater than 4 Fingerbreadths Mallampati classification: I Thyromental Distance: greater than 6 cm Plan Anesthesia Type: General Consent for Procedure(s) Verified and Reviewed: Yes Code Status: Attempt Resuscitation ASA classification: 3-Severe systemic disease Is this case an emergency?: No
[2023-10-02] MEDS ORDERED: ONDANSETRON 4 MG/2 ML VIAL IVP PRN (10:04)
[2023-10-02] MEDS ORDERED: MORPHINE 2 MG/ML CARPUJECT IVP PRN (10:04)
[2023-10-02] MEDS ORDERED: NALOXONE 0.4 MG/ML VIAL IVP PRN (10:04)
[2023-10-02] MEDS ORDERED: ATROPINE ABBOJECT 1 MG/10 ML SYRINGE IVP PRN (10:04)
[2023-10-02] MEDS ORDERED: fentaNYL 100 MCG/2 ML VIAL IVP PRN (10:04)
[2023-10-02] MEDS ORDERED: ePHEDrine 50 MG/ML VIAL IVP PRN (10:04)
--- NOTE | 2023-10-02 10:29 | PROVIDER PROGRESS NOTE ---
Subjective - Prog Note Date Prog Note Date: 10/02/23 Prog Note Time: 10:25 - Subjective Subjective: Unfortunately the patient developed worsening hematuria overnight. He has dropped his hemoglobin a bit as well. I spoke to Dr. Salazar today who plans to take him to the operating room again for another cystoscopy. When I saw the patient this morning he is resting in the bed. He is somewhat discouraged about the setback. He states that he is feeling not too bad this morning. He has had some pain. No fever or chills. No chest pain or heart palpitations. No nausea vomiting or diarrhea. He has continued ongoing hematuria Current Medications - Current Medications Current Medications: Tylenol 650 mg p.o. every 4 hours as needed pain Hydrocodone 5/325 mg 1 p.o. every 4 hours as needed pain Ceftriaxone 1 g daily Hydromorphone 0.5 mg IV every 2 hours as needed severe pain Humalog sliding scale Zofran 4 mg p.o. every 6 hours as needed nausea and bowel Zofran 4 mg IV every 6 hours as needed nausea Vesicare 5 mg p.o. daily Objective - Vital Signs/Intake & Output Reviewed Vital Signs: Yes Vital Signs: Vital Signs x48h Temp Pulse Resp BP Pulse Ox 10/02/23 08:00 36.7 C 89 18 115/70 94 Intake & Output: Intake & Output 09/29/23 09/30/23 10/01/23 10/02/23 23:59 23:59 23:59 23:59 Intake Total 9330 69830 58507 50 Output Total 7050 72314 82655 550 Balance 3159 -0383 -2000 -500 - Objective General Appearance: positive: No acute distress, Other (He appears to be somewhat depressed) Eyes Bilateral: positive: Normal inspection ENT: positive: ENT inspection nml Neck: positive: Nml inspection Respiratory: positive: Chest non-tender, No respiratory distress Cardiovascular: positive: Regular rate & rhythm, No murmur, No gallop. negative: Friction rub Abdomen: positive: Non-tender, No organomegaly, Nml bowel sounds Skin: positive: Color nml, No rash, Warm, Dry Extremities: positive: Non-tender, Full ROM Neurologic/Psychiatric: positive: Oriented x3, CN's nml (2-12) - Lab Results Fish Bones: 10/02/23 07:45 10/02/23 04:36 Other Labs: Lab Results x24hrs 10/02/23 10/02/23 10/02/23 Range/Units 07:45 04:36 04:36 WBC 6.4 (4.8-10.8) x10^3/uL RBC 2.37 L (4.70-6.10) 10^6/uL Hgb 7.8 L 8.0 L (14.0-18.0) g/dL Hct 23.5 L 24.7 L (42.0-52.0) % MCV 104.2 H (80.0-94.0) fL MCH 33.8 H (27.0-31.0) pg MCHC 32.4 (32.0-36.0) g/dL RDW 19.1 H (12.0-15.0) % Plt Count 81 L (130-450) 10^3/uL MPV 9.7 (7.4-11.4) fL Neut # (Auto) 5.3 (1.5-6.6) 10^3/uL Lymph # (Auto) 0.5 L (1.5-3.5) 10^3/uL [place] # (Auto) 0.5 (0.0-1.0) 10^3/uL Eos # (Auto) 0.1 (0.0-0.7) 10^3/uL Baso # (Auto) 0.0 (0.0-0.1) 10^3/uL Absolute Nucleated RBC 0.00 x10^3/uL Nucleated RBC % 0.0 /100WBC Sodium 132 L (135-145) mmol/L Potassium 3.9 (3.5-4.5) mmol/L Chloride 102 (101-111) mmol/L Carbon Dioxide 25 (21-32) mmol/L Anion Gap 5.0 L (6-13) BUN 22 H (6-20) mg/dL Creatinine 1.6 H (0.6-1.3) mg/dL Estimated GFR (MDRD) 43 L (>89) Glucose 104 (74-104) mg/dL POC Whole Bld Glucose (70 - 100) mg/dL Calcium 8.3 L (8.5-10.3) mg/dL Phosphorus 3.0 (2.5-5.0) mg/dL Magnesium 1.7 (1.7-2.3) mg/dL Albumin 3.1 L (3.2-5.5) g/dL 10/02/23 10/01/23 10/01/23 Range/Units 00:15 16:47 15:47 WBC (4.8-10.8) x10^3/uL RBC (4.70-6.10) 10^6/uL Hgb 8.0 L 8.3 L (14.0-18.0) g/dL Hct 23.2 L 24.2 L (42.0-52.0) % MCV (80.0-94.0) fL MCH (27.0-31.0) pg MCHC (32.0-36.0) g/dL RDW (12.0-15.0) % Plt Count (130-450) 10^3/uL MPV (7.4-11.4) fL Neut # (Auto) (1.5-6.6) 10^3/uL Lymph # (Auto) (1.5-3.5) 10^3/uL [place] # (Auto) (0.0-1.0) 10^3/uL Eos # (Auto) (0.0-0.7) 10^3/uL Baso # (Auto) (0.0-0.1) 10^3/uL Absolute Nucleated RBC x10^3/uL Nucleated RBC % /100WBC Sodium (135-145) mmol/L Potassium (3.5-4.5) mmol/L Chloride (101-111) mmol/L Carbon Dioxide (21-32) mmol/L Anion Gap (6-13) BUN (6-20) mg/dL Creatinine (0.6-1.3) mg/dL Estimated GFR (MDRD) (>89) Glucose (74-104) mg/dL POC Whole Bld Glucose 117 H (70 - 100) mg/dL Calcium (8.5-10.3) mg/dL Phosphorus (2.5-5.0) mg/dL Magnesium (1.7-2.3) mg/dL Albumin (3.2-5.5) g/dL ABX Reporting Has patient been on IV antibiotics over the past 48 hours?: Yes Sepsis Event Note (H) - Evaluation Current Stage of Sepsis: Ruled out Assessment/Plan - Problem List (1) Gross hematuria Impression: Unfortunately the patient has continuing hematuria. He is going back to the operating room for repeat cystoscopy with Dr. Salazar. Plan of care per urology. (2) Hydroureter on left Impression: Status post stent placement during his previous cystoscopy. Again plan of care per urology (3) Acute blood loss anemia Impression: The patient has received 2 units of packed red blood cells. His hemoglobin did drop overnight with ongoing hematuria but he does not require transfusion as of this time. (4) AML (acute myeloblastic leukemia) Impression: Status post bone marrow transplant. He is chronically immunosuppressed. (5) Bone marrow transplant status Impression: Continue home doses of immunosuppressive drugs. (6) Chronic kidney disease, stage 3 Impression: Kidney function is remaining stable for now. (7) Danitza's granulomatosis Impression: Quiescent (8) Diabetes Impression: Blood sugars have been totally normal and he has not required any sliding scale coverage. I am stopping fingerstick blood sugars (9) Paroxysmal atrial fibrillation Impression: Currently in a sinus rhythm and rate controlled. He is not on anticoagulation due to his ongoing hematuria (10) Thrombocytopenia Impression: This is not helping his ongoing hematuria. His thrombocytopenia is chronic and stable for now. (11) Pulmonary hemorrhage Impression: He has a history of pulmonary hemorrhage due to high-dose prednisone use. No issues during this hospitalization (12) Sarcopenia Impression: The patient was able to get up and ambulate to the bathroom with assistance today. Continue to work with physical therapy and Occupational Therapy. Disposition: Ongoing hospitalization remains necessary. The patient continues to have significant hematuria and is dropping his blood counts. He is going back to the operating room for cystoscopy today. Timing of disposition will be determined by his clinical course Time spent: 35 minutes
[2023-10-02] MEDS: DOCUSATE SODIUM 250 MG CAPSULE PO SCH (10:46)
[2023-10-02] MEDS: SENNA 8.6 MG TABLET PO SCH (10:47)
[2023-10-02] MEDS ORDERED: LACTATED RINGERS 1,000 ML IV SCH (11:00)
[2023-10-02] MEDS ORDERED: fentaNYL 100 MCG/2 ML VIAL ONE (11:57)
[2023-10-02] MEDS ORDERED: PROPOFOL 200 MG/20 ML VIAL IVP ONE (11:57)
[2023-10-02] MEDS ORDERED: LIDOCAINE 2% URO-JET 5 ML SYRINGE UR ONE (12:12)
[2023-10-02] MEDS ORDERED: ceFAZolin 1 GM VIAL ONE (12:43)
[2023-10-02] MEDS ORDERED: DEXAMETHASONE 4 MG/ML VIAL ONE (12:51)
[2023-10-02] MEDS: LIDOCAINE 2% URO-JET 5 ML SYRINGE UR ONE (12:51)
[2023-10-02] MEDS ORDERED: ePHEDrine 50 MG/ML VIAL IVP ONE (13:03)
[2023-10-02] MEDS ORDERED: VASOPRESSIN 20 UNIT/ML VIAL ONE (13:08)
[2023-10-02] MEDS ORDERED: SODIUM CHLORIDE 0.9% 10 ML VIAL IVP ONE (13:08)
[2023-10-02] MEDS ORDERED: iohexoL-240 10 ML VIAL IVP ONE (13:10)
[2023-10-02] MEDS ORDERED: LIDOCAINE-PF 2% 10 ML AMP SUBQ ONE (13:16)
[2023-10-02] MEDS: iohexoL-240 10 ML VIAL IVP ONE (13:21)
[2023-10-02] MEDS: LACTATED RINGERS 1,000 ML IV ONE (13:33)
--- NOTE | 2023-10-02 13:51 | OPERATIVE REPORT ---
Operative Report - General Admit Date: 09/26/23 Procedure Date: 10/02/23 Planned Procedure: Cystoscopy, clot evacuation, fulguration of bleeding areas, left stent removal Pre-Op Diagnosis: hematuria Procedure Performed: Cystoscopy, clot evacuation, fulguration of bleeding areas, left stent removal, left ureteroscopy, left retrograde pyelogram Post Op Diagnosis: hematuria, left kidney bleeding - Procedure Note Primary Surgeon: Martin Anesthesia Provider: GENIE Lindquist Anesthesia Technique: General LMA Pathology: none Estimated Blood Loss (mL): 20 Indications: Persistent hematuria Findings: Some mild oozing from posterior bladder wall which was fulgurated. About 5 or 10 cc of old clot removed. Stent was in bladder completely. Left renal system full of clot and evidence of active bleeding in renal pelvis Complications: Unable to definitively stop bleeding. Will discuss transferring him to outside hospital for possible embolization and further evaluation - Other Other Information/Narrative: After informed consent was obtained the patient was brought to the OR and laid in the supine position. He was anesthetized per anesthesia protocols and prepped and draped in usual fashion in the dorsolithotomy position. He had perioperative antibiotics with Ancef. A formal timeout was performed reconfirming the patient, procedure and laterality. A 22 [place] cystoscope was advanced into the urinary bladder. He was noted to have some old clot in the bladder was evacuated using [employer] evacuator. As well 5 to 10 cc of old clot. We could see that his left ureteral stent was no longer coming out of his left ureter and in fact had been entirely curled in the bladder. This was grasped and removed. The left ureteral orifice had a large clot that was emanating out of it. This was grasped and pulled in a long approximately 5 cm clot the shape of the ureteral lumen was pulled out. We then switched over to a 26 [place] resectoscope and using loop electrocautery we used a spot cautery on the posterior wall of the bladder where there is some oozing. His bladder mucosa was very atypical appearing almost like a radiation cystitis, similar to his prior procedure on . But overall there was not significant bleeding from the bladder. During this time we could see active bleeding coming out of his left ureteral orifice. A short semirigid ureteroscope was advanced into the distal ureter where a large clot was identified. This was grasped using a basket and pulled out and we could pull out about a centimeter or so clot at a time. When we returned back to the ureter there was always more clot. A gentle retrograde pyelograms performed showing a wide distal ureter with clot obstruction and further blo ckage proximally at the mid ureter. A wire was placed up into the kidney and a 5 [place] ureteral catheter was placed over it. After removing the wire there was a hydronephrotic drip of frankly bloody dark effluent consistent with venous bleeding up in his renal pelvic system. I retropyelogram was performed then as well and we could see that we are in the renal pelvis and there were multiple areas of filling defects consistent with clot and likely bleeding sites in the kidney. At that point we elected not to replace the stent and hope that he tamponades his bleeding into his ureter. We reinspected the bladder with resectoscope but could not see any other bleeding areas and so a Uro-Jet was placed and then 22 [place] three-way [place] with 30 cc in the balloon was placed into his bladder u nder gentle continuous bladder irrigation. He was then brought to PACU without further. All counts were correct. He will have hemoglobin evaluation in the PACU in case of need for further transfusion. We will work on transferring to a higher level of care for possible further evaluation and perhaps embolization
[2023-10-02] MEDS ORDERED: HYDROmorphone 0.5 MG/0.5 ML SYRINGE ONE (13:57)
[2023-10-02] MEDS: HYDROmorphone 0.5 MG/0.5 ML SYRINGE IVP PRN (13:58)
[2023-10-02 14:52] LABS: HCT - HEMATOCRIT 22.2 % (42.0-52.0); HGB - HEMOGLOBIN 7.5 g/dL (14.0-18.0)
--- NOTE | 2023-10-02 15:13 | ANESTHESIA POST OP EVALUATION ---
Anesthesia Post Eval - Post Anesthesia Eval Vitals: Last Vital Signs Temp 36.4 C L 10/02/23 14:38 Pulse 88 10/02/23 14:38 Resp 18 10/02/23 14:38 BP 120/69 10/02/23 14:38 Pulse Ox 93 10/02/23 14:38 O2 Flow Rate CV Function Including HR & BP: Stable Pain Control: Satisfactory Nausea & Vomiting: Negative Mental Status: Baseline Respiratory Status: Airway Patent Hydration Status: Satisfactory Anesthesia Complications: None
--- NOTE | 2023-10-02 15:44 | DISCHARGE SUMMARY ---
Discharge Summary Admit Date: 09/26/23 Discharging Provider: Amanda Polk PA-C Primary Care Provider: Charisse Santamaria PA-C Code Status: Attempt Resuscitation Condition at Discharge: Stable Discharge Disposition: 02 Transfer Acute Care Hosp - DIAGNOSES Discharge Diagnoses with Status of Each Condition: 1. Gross hematuria due to hemorrhage into the renal collecting system from the left kidney The patient had repeat cystoscopy performed today and he has hemorrhage in into the renal collection system from the left kidney. He has clots in the left ureter. He does have a stent in place from his previous cystoscopy. Dr. Salazar has recommended transfer to a tertiary center for embolization or even consideration for nephrectomy. 2. Hydroureter on left Status post stent placement during his previous cystoscopy. However the stent was removed during his second cystocopy. Again he will require transfer to tertiary center 3. Acute blood loss anemia The patient I believe is received 3 units of blood during the course of this hospitalization. I am continuing to monitor his H&H as during this hosp italization we will transfuse if his hemoglobin drops below 7 4. AML S quiescent at this point tatus post bone marrow transplant at [facility]. 5. Status post bone marrow transplant Currently the patient is maintained on prednisone 5 mg daily 6. Chronic kidney disease stage III Kidney function has remained stable during this hospitalization 7. Danitza's granulomatosis Quiescent for now diabetes 8. Diabetes The patient has not required any sliding scale coverage during this hospitalization 9. Paroxysmal atrial fibrillation Currently in a sinus rhythm and rate controlled. He previously was on Eliquis which of course has been held due to his hematuria. 10. Thrombocytopenia This is not helping with his ongoing hematuria. His thrombocytopenia is chronic and stable for now 11. Pulmonary hemorrhage Reportedly has a history of pulmonary hemorrhage in the past due to high-dose prednisone use. No issues during this hospitalization 12. Sarcopenia with ambulatory dysfunction Patient has been working with physical therapy and Occupational Therapy but has been able unable to participate as much as we would like due to continuously be ing on CBI - HPI History of Present Illness: From the admission H&P: Patient is a 72-year-old male with past medical history of paroxysmal atrial fibrillation on anticoagulation, AML/MDS s/p stem cell transplant, diffuse alveolar hemorrhage on prednisone, Danitza's granulomatosis, type 2 diabetes, CKD 3, septic knee who presented to the ED due to hematuria in his Juarez catheter. Patient reportedly presented to the ED a week ago with complaints of hematuria at which point a catheter was placed. Patient reports that he began having dark red blood again today with dizziness. In the ED, CBC was performed which revealed a hemoglobin of 8.0 which was down from 10.3 on 09/18. Case was discussed with urology who recommended admission. During my evaluation patient denied any fever or chills. He stated he had just completed a course of Keflex for suspected UTI. He denies any abdominal pain. Denies any chest pain. Denies any shortness of breath. Patient is a full code. Case was discussed with urology who recommended CBI and holding his a nticoagulation. No intervention is planned. - HOSPITAL COURSE Hospital Course: The patient was admitted to the hospital. He initially was started on CBI. He continued to have clots and significant hematuria. His hemoglobin drifted down again and he required further transfusions. On 09/29/2023 the patient had a cystoscopy with clot evacuation, fulguration of bleeding areas and left retrograde pyelogram and left ureteral stent placement. The patient tolerated the procedure well and initially his hematuria seem to resolve but then acutely worsened. He was placed back on CBI. Ultimately the patient went to the operating room on 10/02/2023 for a repeat cystoscopy. During that cystoscopy he was found to have mild oozing from the posterior bladder wall which was fulgurated. About 5 to 10 cc of old clot was removed. The left renal system was full of clot and had evidence of active bleeding in the renal pelvis. Dr. Salazar was unable to definitively stop the bleeding and recommended transfer to a tertiary center for consideration of embolization or even possible nephrectomy. I spoke to Dr. Ashley urologist from [facility] who has accepted the patient in transfer. He was going to speak to the hospitalist team who graciously agreed to accept the patient. The patient will be transferred to [facility] as soon as a bed is found - ALLERGIES Allergies/Adverse Reactions: Allergies Allergy/AdvReac Type Severity Reaction Status Date / Time No Known Drug Allergies Allergy Verified 09/26/23 14:23 - MEDICATIONS Home Medications: Ambulatory Orders Medication Instructions Recorded Confirmed Cyanocobalamin (Vitamin B-12) 5,000 mcg PO DAILY 09/19/23 09/28/23 [Vitamin B-12] Fluticasone [Flonase] 1 applic INH BID 09/19/23 09/27/23 Lactobacillus Combination No.4 1 cap PO DAILY 09/19/23 09/27/23 [Probiotic] Magnesium Glycinate 1 tab PO DAILY 09/19/23 09/27/23 Melatonin 1 tab PO PRN PRN 09/19/23 09/27/23 Ofloxacin 0.3% Ophth Drops 1 drops LEFTEYE QPM 09/19/23 10/01/23 [Ocuflox 0.3% Ophth Drops] Panax, Andorran Ginsg/B12/Royl 1 cap PO DAILY 09/19/23 09/27/23 [Ginseng Complex Capsule] Pantoprazole [Protonix] 1 tab PO DAILY 09/19/23 09/27/23 Prednisone [Jazzmine] 1 tab PO DAILY 09/19/23 09/27/23 Zinc Gluconate [Zinc] 1 tab PO DAILY 09/19/23 09/27/23 prednisoLONE 1% OPHTH DROPS [Pred 1 drops LEFTEYE DAILY 09/19/23 09/27/23 Forte 1% Ophth Drops] valACYclovir [Valtrex] 1 tab PO BID 09/19/23 09/27/23 Metoprolol Tartrate [Lopressor] 12.5 mg PO BID 09/27/23 09/27/23 Multivitamin [Theragran] 1 each PO DAILY 09/27/23 09/27/23 - PHYSICAL EXAM AT DISCHARGE General Appearance: positive: No acute distress, Anxious Eyes Bilateral: positive: Normal inspection ENT: positive: ENT inspection nml Neck: positive: Nml inspection Respiratory: positive: Chest non-tender, No respiratory distress, Breath sounds nml Cardiovascular: positive: Regular rate & rhythm, No murmur, No gallop. negative: Friction rub Abdomen: positive: Non-tender, No organomegaly, Other (He has a Juarez catheter in place and is hooked up to [facility]) Skin: positive: Color nml, No rash, Warm Extremities: positive: Non-tender, Full ROM Neurologic/Psychiatric: positive: Oriented x3, CN's nml (2-12) - LABS Result Diagrams: 10/03/23 07:45 10/03/23 08:30 - SEPSIS Current Stage of Sepsis: Ruled out - FOLLOW UP Follow Up: The patient should follow-up with his primary care provider after he is discharged from [facility] - TIME SPENT Time Spent in Discharge (Minutes): 45
--- NOTE | 2023-10-02 18:01 | XRAY Report ---
PROCEDURE: OR C-Arm Procedure INDICATIONS: INTRAOP FLUORO TIME: 000.1 COMPARISON: CT abdomen and pelvis 09/19/2023. FINDINGS: Catheter seen within the distal left ureter and extending into the proximal left ureter. Contrast griffin ls the left kidney. Mild left hydroureteronephrosis. IMPRESSION: Intraoperative guidance provided. Reviewed by: Neo Blum MD on 10/02/2023 6:00 PM PDT Approved by: Neo Blum MD on 10/02/2023 6:00 PM PDT Station ID: [id number]
[2023-10-02 18:22] LABS: HCT - HEMATOCRIT 22.7 % (42.0-52.0); HGB - HEMOGLOBIN 7.8 g/dL (14.0-18.0)
[2023-10-02 23:45] LABS: HCT - HEMATOCRIT 22.7 % (42.0-52.0); HGB - HEMOGLOBIN 7.9 g/dL (14.0-18.0)
[2023-10-03 08:32] LABS: BASOPHILS % (AUTO) 0.1 %; EOSINOPHILS % (AUTO) 0.1 %; HCT - HEMATOCRIT 20.9 % (42.0-52.0); LYMPHOCYTES # (AUTO) 0.4 10^3/uL (1.5-3.5); LYMPHOCYTES % (AUTO) 5.4 %; MEAN CORPUSCULAR HEMOGLOBIN 34.7 pg (27.0-31.0); MEAN CORPUSCULAR HGB CONC 33.5 g/dL (32.0-36.0); MEAN CORPUSCULAR VOLUME 103.5 fL (80.0-94.0); MEAN PLATELET VOLUME 9.8 fL (7.4-11.4); MONOCYTES # (AUTO) 0.4 10^3/uL (0.0-1.0); MONOCYTES % (AUTO) 5.3 %; NEUTROPHILS % (AUTO) 88.2 %; PLT - PLATELET COUNT 97 10^3/uL (130-450); RED BLOOD COUNT 2.02 10^6/uL (4.70-6.10); RED CELL DISTRIBUTION WIDTH 18.1 % (12.0-15.0); WHITE BLOOD COUNT 7.9 x10^3/uL (4.8-10.8)
[2023-10-03 09:03] LABS: ALBUMIN 3.2 g/dL (3.2-5.5); CALCIUM 8.6 mg/dL (8.5-10.3); CREATININE 1.6 mg/dL (0.6-1.3); MAGNESIUM 1.8 mg/dL (1.7-2.3); PHOSPHORUS 3.6 mg/dL (2.5-5.0); POTASSIUM 4.3 mmol/L (3.5-4.5)
--- NOTE | 2023-10-03 09:21 | PROVIDER PROGRESS NOTE ---
Subjective - General Admit Date: 09/26/23 Procedure Date: 10/02/23 Post Op Days: 1 Procedure Performed: cystoscopy, left ureteroscopy, stent removal, fulguration of bleeding areas - Review of Systems General: positive: No symptoms (feeling much better) Genitourinary: positive: Other ([address]f [address] with light red tinged output on medium drip) All Other Systems: positive: Reviewed and negative Objective - Patient Data Reviewed Vital Signs: Yes Vital Signs: Vital Signs x48h Temp Pulse Resp BP Pulse Ox 10/03/23 08:13 36.6 C 80 16 111/58 L 97 10/03/23 04:26 36.6 C 88 16 92/54 L 97 Weight: Weight 10/01/23 10/02/23 10/03/23 23:59 23:59 23:59 Weight (kg) 68.5 kg Intake & Output: Intake and Output Totals x24h 10/01/23 10/02/23 10/03/23 23:59 23:59 23:59 Intake Total 00691 4395 4360 Output Total 26001 8215 5736 [id number] -[id number] -1355 - Lab Results Lab Results: 10/03/23 07:45 10/03/23 08:30 Other Lab Results: Lab Results x24hrs 10/03/23 10/03/23 10/02/23 Range/Units 08:30 07:45 23:40 WBC 7.9 (4.8-10.8) x10^3/uL RBC 2.02 L (4.70-6.10) 10^6/uL Hgb 7.0 L* 7.9 L (14.0-18.0) g/dL Hct 20.9 L 22.7 L (42.0-52.0) % MCV 103.5 H (80.0-94.0) fL MCH 34.7 H (27.0-31.0) pg MCHC 33.5 (32.0-36.0) g/dL RDW 18.1 H (12.0-15.0) % Plt Count 97 L (130-450) 10^3/uL MPV 9.8 (7.4-11.4) fL Neut # (Auto) 7.0 H (1.5-6.6) 10^3/uL Lymph # (Auto) 0.4 L (1.5-3.5) 10^3/uL Boone # (Auto) 0.4 (0.0-1.0) 10^3/uL Eos # (Auto) 0.0 (0.0-0.7) 10^3/uL Baso # (Auto) 0.0 (0.0-0.1) 10^3/uL Absolute Nucleated RBC 0.00 x10^3/uL Nucleated RBC % 0.0 /100WBC Sodium 133 L (135-145) mmol/L Potassium 4.3 (3.5-4.5) mmol/L Chloride 100 L (101-111) mmol/L Carbon Dioxide 27 (21-32) mmol/L Anion Gap 6.0 (6-13) BUN 25 H (6-20) mg/dL Creatinine 1.6 H (0.6-1.3) mg/dL Estimated GFR (MDRD) 43 L (>89) Glucose 138 H (74-104) mg/dL Calcium 8.6 (8.5-10.3) mg/dL Phosphorus 3.6 (2.5-5.0) mg/dL Magnesium 1.8 (1.7-2.3) mg/dL Albumin 3.2 (3.2-5.5) g/dL 10/02/23 10/02/23 Range/Units 18:10 14:25 WBC (4.8-10.8) x10^3/uL RBC (4.70-6.10) 10^6/uL Hgb 7.8 L 7.5 L (14.0-18.0) g/dL Hct 22.7 L 22.2 L (42.0-52.0) % MCV (80.0-94.0) fL MCH (27.0-31.0) pg MCHC (32.0-36.0) g/dL RDW (12.0-15.0) % Plt Count (130-450) 10^3/uL MPV (7.4-11.4) fL Neut # (Auto) (1.5-6.6) 10^3/uL Lymph # (Auto) (1.5-3.5) 10^3/uL Boone # (Auto) (0.0-1.0) 10^3/uL Eos # (Auto) (0.0-0.7) 10^3/uL Baso # (Auto) (0.0-0.1) 10^3/uL Absolute Nucleated RBC x10^3/uL Nucleated RBC % /100WBC Sodium (135-145) mmol/L Potassium (3.5-4.5) mmol/L Chloride (101-111) mmol/L Carbon Dioxide (21-32) mmol/L Anion Gap (6-13) BUN (6-20) mg/dL Creatinine (0.6-1.3) mg/dL Estimated GFR (MDRD) (>89) Glucose (74-104) mg/dL Calcium (8.5-10.3) mg/dL Phosphorus (2.5-5.0) mg/dL Magnesium (1.7-2.3) mg/dL Albumin (3.2-5.5) g/dL - Current Medications Current Medications: Current Medications Generic Name Dose Route Start Last Admin Trade Name Twanq PRN Reason Stop Dose Admin Hydrocodone Bitart/Acetaminophen 1 tab 09/26/23 16:05 09/29/23 15:49 Hydrocod/Acetam 5/325 Mg Tablet PO 1 tab Q4HR PRN Administration Pain 5 to 7 Carboxymethylcellulose 1 drops 09/27/23 21:23 09/30/23 20:24 Carboxymethylcellulose Ophth Drops EACHEYE 1 drops PRN PRN Administration Dry Eye Cyanocobalamin 1,000 mcg 09/28/23 09:00 10/02/23 10:46 Cyanocobalamin 500 Mcg Tablet PO Not Given DAILY JUJU Docusate Sodium 250 - 500 mg 10/02/23 09:00 10/02/23 10:46 Docusate Sodium 250 Mg Capsule PO Not Given DAILY JUJU Fluticasone Propionate 1 sprays 09/28/23 09:00 10/02/23 20:34 Fluticasone Nasal [place] SHENA 1 spr BID JUJU Administration Hydromorphone HCl 0.5 mg 09/26/23 16:05 10/03/23 04:35 Hydromorphone 0.5 Mg/0.5 Ml Syringe IVP 0.5 mg Q2H PRN Administration Pain 8 to 10 Multivitamins 1 tab 09/28/23 09:00 10/02/23 10:46 Multivitamin Tablet PO Not Given DAILY JUJU Ofloxacin 1 drops 10/01/23 21:00 10/02/23 20:34 Ofloxacin 0.3% Ophth Drops LEFTEYE 1 drp QPM JUJU Administration Pantoprazole Sodium 40 mg 09/28/23 09:00 10/03/23 07:02 Pantoprazole 40 Mg Tablet PO 40 mg QDAC JUJU Administration Polyethylene Glycol 17 gm 09/29/23 09:00 10/02/23 09:15 Polyethylene Glycol 3350 17 Gm Packet PO Not Given DAILY JUJU Prednisolone 1 drops 09/28/23 09:00 10/02/23 10:47 Prednisolone 1% Ophth Drops 75 Drops/5 Ml Bottle LEFTEYE Not Given DAILY JUJU Prednisone 5 mg 09/28/23 08:00 10/02/23 10:46 Prednisone 5 Mg Tablet PO Not Given DAILYWM JUJU Saccharomyces Boulardii 250 mg 09/28/23 09:00 10/02/23 10:47 Saccharomyces Boulardii 250 Mg Capsule PO Not Given DAILY JUJU Senna 8.6 - 17.2 mg 10/01/23 13:00 10/02/23 10:47 Senna 8.6 Mg Tablet PO Not Given DAILY JUJU Sodium Chloride 10 ml 09/26/23 16:05 10/02/23 18:36 Sodium Chloride Flush 0.9% 10 Ml Syringe IVP 20 ml PRN PRN Administration NEEDED PER PROVIDER ORDERS Sodium Chloride 10 ml 09/26/23 17:00 10/03/23 04:36 Sodium Chloride Flush 0.9% 10 Ml Syringe IVP 10 ml 0100,0900,1700 JUJU Administration Solifenacin 5 mg 09/27/23 09:00 10/02/23 10:47 Solifenacin Succinate 5 Mg Tablet PO Not Given DAILY JUJU Valacyclovir HCl 500 mg 09/28/23 09:00 10/02/23 20:34 Valacyclovir 500 Mg Tablet PO 500 mg BID JUJU Administration Zinc Sulfate 220 mg 09/28/23 09:00 10/02/23 10:48 Zinc Sulfate 220 Mg Capsule PO Not Given DAILY JUJU - Physical Exam Comments/Other: patient feels well, in good spirits Hg 7.0, getting another unit of blood ABX Reporting Has patient been on IV antibiotics over the past 48 hours?: No Impression/Plan - Problem List Problem List: Yesterday we took him to the OR again for bleeding issues. His stent has been pushed out of his ureter into his bladder and I was hoping initially that this had caused the continued irritation and bleeding in the bladder itself however it was very quickly evident that he had a large amount of bleeding coming from the kidney itself leading to a large clot in his left collecting system. This bleeding is the underlying source of his current hematuria. I removed his stent yesterday. I am optimistic that hopefully he will clot off and stop bleeding from his collecting system on the left side and this will reduce his transfusion requirements but ultimately he may need higher level of care including embolization or possibly nephrectomy. To this end we have reached out to [facility] who have accepted him as a transfer. They will assess and make their own decisions of course. He remains in good spirits and is quite grateful for his care here. Ultimately for now he remains in a guarded state requiring continued transfusion requirements and I am not able to perform the advanced treatments he may require to fix this current issue. His biopsy results are still pending. I suspect he has something atypical going on such as an autoimmune disorder which would explain his markedly atypical bladder and this atypical bleeding issue. He should not obtain any more blood thinning agents. I remain available for any concerns
[2023-10-03] MEDS: diphenhydrAMINE 25 MG CAPSULE PO SCH (14:35)
[2023-10-03] MEDS: ACETAMINOPHEN 325 MG TABLET PO SCH (14:35)
[2023-10-03] MEDS: ONDANSETRON ODT 4 MG TABLET TL PRN (15:48)
[2023-10-03] MEDS: ONDANSETRON 4 MG/2 ML VIAL IVP PRN (20:38)
[2023-10-03 21:01] VITALS: BP 117/72; O2SAT 99
== END 2023-10-03 20:45 | disposition short-term general hospital (02) | DRG 660 ==
LOC: EDBD → EDUNIT# → ED 13:28 → MS2 16:05
PROVIDERS: ADMIT Family Medicine; ATTEND Physician Assistant
PROC: 0T778DZ Dilation of Left Ureter with Intraluminal Device, Via Natural or Artificial Opening Endoscopic (ICD-10-PCS; 2023-09-28)
PROC: 0TBB8ZX Excision of Bladder, Via Natural or Artificial Opening Endoscopic, Diagnostic (ICD-10-PCS; 2023-09-28)
PROC: BT1FYZZ Fluoroscopy of Left Kidney, Ureter and Bladder using Other Contrast (ICD-10-PCS; 2023-09-28)
PROC: 0TCB8ZZ Extirpation of Matter from Bladder, Via Natural or Artificial Opening Endoscopic (ICD-10-PCS; principal; 2023-09-28 12:00)
PROC: 30233N1 Transfusion of Nonautologous Red Blood Cells into Peripheral Vein, Percutaneous Approach (ICD-10-PCS; 2023-09-29)
DX: R31.0 Gross hematuria (principal); I95.9 Hypotension, unspecified; D64.9 Anemia, unspecified; I48.91 Unspecified atrial fibrillation; N28.89 Other specified disorders of kidney and ureter; C92.00 Acute myeloblastic leukemia, not having achieved remission; Z96.0 Presence of urogenital implants; D62 Acute posthemorrhagic anemia; Z94.84 Stem cells transplant status; Z94.81 Bone marrow transplant status; M31.30 Wegener's granulomatosis without renal involvement; N13.4 Hydroureter; N18.30 Chronic kidney disease, stage 3 unspecified; I48.0 Paroxysmal atrial fibrillation; D69.6 Thrombocytopenia, unspecified; M62.84 Sarcopenia; E11.22 Type 2 diabetes mellitus with diabetic chronic kidney disease; I25.10 Atherosclerotic heart disease of native coronary artery without angina pectoris; K21.9 Gastro-esophageal reflux disease without esophagitis; N13.30 Unspecified hydronephrosis; N21.0 Calculus in bladder; N17.9 Acute kidney failure, unspecified; Z79.01 Long term (current) use of anticoagulants; Z79.899 Other long term (current) drug therapy; Z87.09 Personal history of other diseases of the respiratory system
CPT/HCPCS: 36415; 51700; 80048; 80053; 80069; 81001; 82607; 83690; 83735; 85014; 85018; 85025; 85610; 85730; 86850; 86900; 86901; 86920; 87086; 99284; 99285; A9270; C1758; C2617; J1170; J2372; J7120; J7512; P9040; Q0162; Q9966; 81003

== ENCOUNTER 2023-11-24 10:08 | Outpatient (CLI) | payer MEDICARE ==
[2023-11-24 10:18] LABS: BASOPHILS % (AUTO) 0.7 %; EOSINOPHILS # (AUTO) 0.1 10^3/uL (0.0-0.7); EOSINOPHILS % (AUTO) 1.5 %; HCT - HEMATOCRIT 27.3 % (42.0-52.0); HGB - HEMOGLOBIN 8.5 g/dL (14.0-18.0); LYMPHOCYTES # (AUTO) 0.7 10^3/uL (1.5-3.5); LYMPHOCYTES % (AUTO) 14.3 %; MEAN CORPUSCULAR HEMOGLOBIN 33.3 pg (27.0-31.0); MEAN CORPUSCULAR HGB CONC 31.1 g/dL (32.0-36.0); MEAN CORPUSCULAR VOLUME 107.1 fL (80.0-94.0); MEAN PLATELET VOLUME 9.7 fL (7.4-11.4); MONOCYTES # (AUTO) 0.4 10^3/uL (0.0-1.0); MONOCYTES % (AUTO) 9.2 %; NEUTROPHILS # (AUTO) 3.4 10^3/uL (1.5-6.6); NEUTROPHILS % (AUTO) 73.6 %; PLT - PLATELET COUNT 67 10^3/uL (130-450); RED BLOOD COUNT 2.55 10^6/uL (4.70-6.10); RED CELL DISTRIBUTION WIDTH 21.5 % (12.0-15.0); WHITE BLOOD COUNT 4.6 x10^3/uL (4.8-10.8)
[2023-11-24 10:20] LABS: SLIDE REVIEW? Indicated
[2023-11-24 10:21] LABS: RBC MORPHOLOGY (MULTIPLE) 4+ ANISOCYTOSIS (NORMAL)
[2023-11-24 10:33] LABS: ALBUMIN 3.8 g/dL (3.2-5.5); ALBUMIN/GLOBULIN RATIO 1.9 (1.0-2.2); BILIRUBIN,TOTAL 0.5 mg/dL (0.2-1.0); CALCIUM 9.1 mg/dL (8.5-10.3); CREATININE 1.4 mg/dL (0.6-1.3); POTASSIUM 4.3 mmol/L (3.5-4.5); TOTAL PROTEIN 5.8 g/dL (6.4-8.9)
[2023-11-24 11:24] LABS: FERRITIN 2075.1 ng/mL (23.9-336.2)
== END 2023-11-24 10:09 | disposition home or self-care (01) ==
LOC: LAB 10:08
PROVIDERS: ATTEND Internal Medicine
DX: N17.9 Acute kidney failure, unspecified (principal); D50.9 Iron deficiency anemia, unspecified; I48.91 Unspecified atrial fibrillation; D61.818 Other pancytopenia; C92.A0 Acute myeloid leukemia with multilineage dysplasia, not having achieved remission; I48.92 Unspecified atrial flutter
CPT/HCPCS: 36415; 80053; 81599; 82728; 83540; 83880; 84466; 85025

== ENCOUNTER 2024-07-19 17:16 | Inpatient (IN) ==
--- NOTE | 2024-07-19 17:30 | ED Physician Documentation ---
History of Present Illness Stated complaint Stated Complaint: BLOOD IN URINE Chief complaint Chief Complaint: General History obtained from History obtained from: Patient and EMS Additonal information Additional information: This is a medically complex 73-year-old gentleman who presents by ambulance for rectal bleeding. Initially we were told by the ambulance it was hematuria but the patient clarifies that it is rectal. It started earlier today. 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 Review of recent records show that he has been having issues with thrombocytopenia. He is seeing Dr. Romero here for his hematologic issues. Meds/Allgy Home Medications Ambulatory Orders Medication Instructions Recorded Confirmed ofloxacin 0.3 % eye drops 1 drp LEFTEYE QPM 09/19/23 0 07/19/24 prednisolone acetate 1 % eye 1 drp LEFTEYE DAILY 09/1807/19/24 drops,suspension Temporary Disabled Placard 01/18/24 06/27/24 atorvastatin 80 mg tablet 80 mg PO QDAY #90 tabs 01/1707/19/24 pantoprazole 40 mg tablet,delayed 40 mg PO DAILY #90 t abs 01/18/24 07/19/24 release tamsulosin 0.4 mg capsule 0.4 mg PO QDAY #90 caps 10/0307/19/24 ehlugbgw-bxluiixy-zabfs acid 400 1 tab PO DAILY 07/19/24 mcg-vit K 20 mcg-lycop 300 mcg tablet (One-A-Day Men's Multivitamin) prednisone 5 mg tablet 5 mg PO QDAY #90 tabs 07/19/24 carboxymethylcellulose sodium 0.5 1 drp ophthalmic (ey e) Q1H PRN 06/02/24 06/27/24 % eye drops erythromycin 5 mg/gram (0.5 %) eye 1 applic ophthalmic (eye) QID PRN 06/02/24 06/27/24 ointment magnesium oxide 400 mg PO QDAY 06/02/24 0410/04 melatonin 1 mg tablet 1 mg PO HS PRN 06/02/2404/06 oxybutynin chloride 5 mg tablet 5 mg PO BID PRN spasms 06/02/24 07/19/24 potassium and sodium phosphates ea PO 06/02/24 5 oral powder thiamine mononitrate (vit B1) 100 100 mg PO QDAY 06/0206/27/24 mg tablet white petrolatum-mineral oil 94 1 applic ophthalmic (e ye) QDAY 06/02/24 07/11/24 %-3 % eye ointment (Systane Nighttime) amiodarone 200 mg tablet 200 mg PO DAILY 90 days #90 tabs 06/03/24 07/19/24 magnesium glycinate mg PO 07/11/24 07/11/24 mecobalamin (vitamin B12) 5,000 5,000 mcg PO QDAY 04/0607/19/24 mcg chewable tablet multivitamin 1 tab PO QDAY 07/11/2407/11 zinc sulfate 50 mg zinc (220 mg) 50 mg PO QDAY 5 07/19/24 capsule (Orazinc) fluticasone propionate 50 2 spray inhalation BID #16 g tanner 07/17/24 07/19/24 mcg/actuation nasal spray,suspension mirtazapine 15 mg tablet mg 07/19/24 Allergies Allergies Allergy/AdvReac Type Severity Reaction Status Date / Time No Known Drug Allergies Allergy Verified 07/19/24 17:22 PFSH Active Problems All Active Problems (Updated 07/19/24 @ 19:41 by Evangelist Queen MD) Rectal bleeding (Acute) Cancer of left renal pelvis (Acute) Left renal mass (Acute) Weakness (Acute) Dehydration (Acute) Renal cancer (Acute) Muscle weakness (Acute) Healthcare maintenance (Acute) 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) Condyloma acuminatum of anus (Acute) Anal fissure (Acute) History of implantable cardioverter-defibrillator (ICD) placement (Acute) Cardiac arrest with ventricular fibrillation (Acute) 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) Pancytopenia (Acute 04/27/23) Atrial fibrillation and flutter (Acute 11/17/22) Rectal pain (Acute) Iron overload due to repeated red blood cell transfusions (Acute) Sarcopenia (Acute) Hydroureter on left (Acute) Thrombocytopenia (Acute) Paroxysmal atrial fibrillation (Acute) Chronic kidney disease, stage 3 (Acute) Danitza's granulomatosis (Acute) Bone marrow transplant status (Acute) Acute blood loss anemia (Acute) GERD (gastroesophageal reflux disease) (Acute) Pulmonary hemorrhage (Acute) Anticoagulant long-term use (Acute) Acute urinary retention (Acute) Lower abdominal pain (Acute) UTI (urinary tract infection) (Acute) Clostridium difficile colitis (Acute) Pancytopenia (Acute) Hemorrhagic cystitis (Acute) Diverticulitis (Acute) A-fib (Chronic) Diabetes (Acute) Anemia (Acute) Gross hematuria (Acute) Anemia (Acute) Chronic kidney disease (Acute) Diastolic heart failure (Acute) Hypokalemia (Acute) History of DVT in adulthood (Acute) Acute kidney injury (Acute) Hypotension (Acute) Medical History Medical History Hemorrhoid Hematuria Mass of right testicle (01/20/23) Severe muscle deconditioning (08/19/22) Sepsis following a procedure, sequela (08/22/22) Cachexia (08/22/22) BPH with lower urinary tract symptoms without urinary obstruction (04/27/23) Antineoplastic chemotherapy induced pancytopenia (08/22/22) Septic shock Surgical History Surgical History Bone marrow replaced by transplant (08/22/22) H/O left knee surgery H/O stem cell transplant H/O knee surgery Family History Family History Mother High blood pressure Alcoholism Heart attack Father Asthma Heart attack Social History Social History Smoking Status: Never smoker Do you dip or chew tobacco?: No Do you vape?: No Patient requests smoking cessation consult: No Initiate information on smoking cessation: No Living arrangement: At home Marital Status: Living Condition: Alone, With spouse/s.o. and Other (has close friend from [employer] who can come help him ) Relationship: Level: Independent Do you feel safe in your home environment?: Yes Suffered physical, verbal, emotional, or financial abuse?: No History of Abuse: No ETOH Use: None Substance Use: denies use Are you sexually active?: No POLST Patient has POLST: No Exam Exam Vital Signs: Vital Signs x48h Temp Pulse Resp BP Pulse Ox 07/19/24 20:15 100 20 104/68 99 07/19/24 19:45 105 H 18 94/69 98 07/19/24 19:30 108 H 18 96/65 96 07/19/24 19:15 81 14 79/60 L 94 07/19/24 19:00 111 H 15 92/61 97 07/19/24 18:45 101 H 17 98/61 97 07/19/24 18:30 122 H 15 91/62 100 07/19/24 18:15 114 H 20 94/64 95 07/19/24 18:06 116 H 20 90/66 98 07/19/24 17:22 36.8 C 116 H 18 111/78 98 Constitutional He is retching and vomiting, the vomit is nonbloody. He has an eye patch on the left which is chronic. He is in a rapid regular rhythm on the monitor. He does not appear particularly ill. HENMT Chronic deformity of the nose from his Danitza's Respiratory normal respiratory effort and clear to auscultation bilaterally Cardiovascular Rapid and regular without murmur Gastrointestinal abdomen soft to palpation and nontender to palpation Genitourinary There is bright red blood in the rectal vault, none around his penile tip. Neurology GCS 15 Results Vitals Vitals: Vital Signs - 24 hr 07/19/24 17:22 07/19/24 18:06 07/19/24 18:15 Temperature 36.8 C Temperature Source Tympanic Pulse Rate 116 H 116 H 114 H Respiratory Rate 18 20 20 Blood Pressure 111/78 90/66 94/64 O2 Saturation 98 98 95 O2 Source Room air Room air Room air Pain Intensity 4 07/19/24 18:30 07/19/24 18:45 07/19/24 19:00 Temperature Temperature Source Pulse Rate 122 H 101 H 111 H Respiratory Rate 15 17 15 Blood Pressure 91/62 98/61 92/61 O2 Saturation 100 97 97 O2 Source Room air Room air Pain Intensity 07/19/24 19:15 07/19/24 19:30 07/19/24 19:45 Temperature Temperature Source Pulse Rate 81 108 H 105 H Respiratory Rate 14 18 18 Blood Pressure 79/60 L 96/65 94/69 O2 Saturation 94 96 98 O2 Source Room air Room air Room air Pain Intensity 07/19/24 20:15 Temperature Temperature Source Pulse Rate 100 Respiratory Rate 20 Blood Pressure 104/68 O2 Saturation 99 O2 Source Room air Pain Intensity Oxygen O2 Source Room air EKG (time done) 175: EKG releavant findings:: EKG personally interpreted by author of this note. Relevant findings are: Narrow complex tachycardia of unclear etiology. Exquisitely irregular. Rate 115. Inferior Q waves. 2015: EKG releavant findings:: EKG personally interpreted by author of this note. Relevant findings are: Sinus tachycardia with rate of 101. Computer calling sinus pause but it is artifactual. There is IVCD with borderline ST depression and prolonged QT. Labs Labs: Laboratory Tests 07/19/24 07/19/24 07/19/24 17:39 17:39 17:39 WBC 5.1 RBC 2.29 L Hgb 7.5 L Hct 23.9 L MCV 104.4 H MCH 32.8 H MCHC 31.4 L RDW 23.5 H Plt Count 73 L MPV 9.8 Neut # (Auto) 4.4 Lymph # (Auto) 0.2 L [place] # (Auto) 0.5 Eos # (Auto) 0.0 Baso # (Auto) 0.0 Absolute Nucleated RBC 0.00 Nucleated RBC % 0.0 Platelet Estimate DECREASED (<130,000) Platelet Morphology n RBC Morph Micro Appear 2+ ANISOCYTOSIS 1+ HYPOCHROMASIA 2+ POIKILOCYTOSIS PT 13.2 H INR 1.2 VBG pH 7.496 H VBG pCO2 28.0 L VBG pO2 40.0 VBG HCO3 21.8 L VBG Total CO2 22.7 L VBG O2 Saturation 65.0 VBG Base Excess -1.6 Sodium 134 L Potassium 3.9 Chloride 103 Carbon Dioxide 23 Anion Gap 8.0 BUN 29 H Creatinine 2.0 H Estimated GFR (MDRD) 33 L Glucose 111 H Lactic Acid 1.9 Calcium 8.2 L Total Bilirubin 0.8 AST 11 ALT 15 Alkaline Phosphatase 82 Total Protein 5.6 L Albumin 3.1 L Globulin 2.5 Albumin/Globulin Ratio 1.2 Blood Type AB POSITIVE Antibody Screen NEGATIVE 07/19/24 19:40 WBC RBC Hgb 6.1 L* Hct 19.2 L* MCV MCH MCHC RDW Plt Count MPV Neut # (Auto) Lymph # (Auto) [place] # (Auto) Eos # (Auto) Baso # (Auto) Absolute Nucleated RBC Nucleated RBC % Platelet Estimate Platelet Morphology RBC Morph Micro Appear PT INR VBG pH VBG pCO2 VBG pO2 VBG HCO3 VBG Total CO2 VBG O2 Saturation VBG Base Excess Sodium Potassium Chloride Carbon Dioxide Anion Gap BUN Creatinine Estimated GFR (MDRD) Glucose Lactic Acid Calcium Total Bilirubin AST ALT Alkaline Phosphatase Total Protein Albumin Globulin Albumin/Globulin Ratio Blood Type Antibody Screen Rads (name of study) CTA Abd: Relevant Findings:: Final report received and EMP independent interpretation of test (No blush) Interpretation: IMPRESSION: 1.No extravasation of contrast material is seen into the bowel lumen. 2.Colonic diverticulosis without signs of acute diverticulitis. 3.Possible small chronic dissection flap at the infrarenal abdominal aorta that does not appear significantly changed when compared to prior nonangiographic exams. No signs of acute aortic synd aurora or aortic aneurysm. 4.Heterogeneous attenuation of the left kidney with surrounding fat stranding likely related to posttreatment changes from patient's known renal mass. No significant ly mphadenopathy. 5.Mild bilateral hydroureter and mild to moderate hydronephrosis without an obstructing calculus or mass is seen. 6.Focal right lateral bladder wall thickening. Bladder malignancy is not excluded and correlation with cystoscopy is recommended. 7.Hyperdense appearance of the liver on noncontrast CT, which can be seen in the setting of amiodarone therapy or deposition diseases such as hemachromatosis. Recommend clinical correlation. PD Medical Decision Making ED course ED course: 73-year-old gentleman with multiple comorbidities as above presents with lower GI bleeding. His CBC showing H&H of 7.5/23.9 which is in the range that he has been running recently and thrombocytopenia at 73, also in the range of where he is been running recently. He went over his for CTA of the abdomen which did not show an active bleed. He did have significant incidental findings. He seemed to not have any active bleeding while in department. I discussed case by phone with Dr Vargas, our on-call surgeon who feels that he can be safely managed here with serial H&H and as needed transfusion. I did order CMV negative irradiated blood and was told by the blood bank there was may be delays. Spoke with Ralf Morgan hospitalist CAREER DEVELOPMENT CONSULTANT for admission at 7:40 PM. On the first recheck of his H&H, he dropped to 6.1/19.2. Lab staff tells me will be difficult to find CMV irradiated blood for him and they are conferring with the pathologist to see if it would be appropriate to just administer irradiated blood which would be much easier to find. There is no CMV negative/irradiated blood anywhere in [place] organ they tell me. I talked with the on-call pathologist, Dr. Ch, we agree that it probably is in the best interest of the patient to give him irradiated leukoreduced blood as otherwise no blood will be available. Discharge Plan Discharge Patient Disposition: ED Place in Observation Condition: Serious Clinical Impression: Rectal bleeding Prescriptions: No Action prednisone 5 mg tablet 5 mg PO QDAY Qty: 90 3RF fluticasone propionate 50 mcg/actuation spray,suspension 2 spray inhalation BID Qty: 16 3RF ofloxacin 75 DROPS/5 ML drops 1 drp LEFTEYE QPM prednisolone acetate 75 DROPS/5 ML drops,suspension 1 drp LEFTEYE DAILY One-A-Day Men's Multivitamin 400-20-300 mcg tablet 1 tab PO DAILY mirtazapine 15 mg tablet (DME) Temporary Disabled Placard [facility] See Rx Instructions .Route Rx Instructions: As directed atorvastatin 80 mg tablet 80 mg PO QDAY Qty: 90 3RF tamsulosin 0.4 mg capsule 0.4 mg PO QDAY Qty: 90 3RF pantoprazole 40 mg tablet,delayed release (DR/EC) 40 mg PO DAILY Qty: 90 3RF carboxymethylcellulose sodium 0.5 % drops 1 drp ophthalmic (eye) Q1H PRN Rx Instructions: left eye erythromycin 5 mg/gram (0.5 %) ointment 1 applic ophthalmic (eye) QID PRN magnesium oxide 400 mg magnesium tablet 400 mg PO QDAY melatonin 1 mg tablet 1 mg PO HS PRN oxybutynin chloride 5 mg tablet 5 mg PO BID PRN (Reason: spasms) potassium, sodium phosphates Powder PO Rx Instructions: 280-160-250 mg 2 packets by mouth daily. thiamine mononitrate (vit B1) 100 mg tablet 100 mg PO QDAY Systane Nighttime 94-3 % ointment 1 applic ophthalmic (eye) QDAY mecobalamin (vitamin B12) 5,000 mcg tablet,chewable 5,000 mcg PO QDAY magnesium glycinate 118 mg magnesium capsule PO Patient Comments: one tab 665 mg at bedtime multivitamin Tablet 1 tab PO QDAY zinc sulfate [Orazinc] 50 mg zinc (220 mg) capsule 50 mg PO QDAY amiodarone 200 mg tablet 200 mg PO DAILY 90 Days Qty: 90 1RF Print Language: Persian Stand Alone Forms: PCP List
[2024-07-19] MEDS ORDERED: iohexoL-300 100 ML VIAL ONE (17:33)
[2024-07-19] MEDS: ONDANSETRON 4 MG/2 ML VIAL IVP STA (17:47)
[2024-07-19] MEDS: SODIUM CHLORIDE 0.9% 1,000 ML IV STA ×2 (17:48→19:36)
[2024-07-19 17:49] LABS: BASOPHILS % (AUTO) 0.4 %; EOSINOPHILS % (AUTO) 0.4 %; HCT - HEMATOCRIT 23.9 % (42.0-52.0); HGB - HEMOGLOBIN 7.5 g/dL (14.0-18.0); LYMPHOCYTES # (AUTO) 0.2 10^3/uL (1.5-3.5); LYMPHOCYTES % (AUTO) 4.7 %; MEAN CORPUSCULAR HEMOGLOBIN 32.8 pg (27.0-31.0); MEAN CORPUSCULAR HGB CONC 31.4 g/dL (32.0-36.0); MEAN CORPUSCULAR VOLUME 104.4 fL (80.0-94.0); MEAN PLATELET VOLUME 9.8 fL (7.4-11.4); MONOCYTES # (AUTO) 0.5 10^3/uL (0.0-1.0); MONOCYTES % (AUTO) 8.8 %; NEUTROPHILS # (AUTO) 4.4 10^3/uL (1.5-6.6); NEUTROPHILS % (AUTO) 84.7 %; PLT - PLATELET COUNT 73 10^3/uL (130-450); RED BLOOD COUNT 2.29 10^6/uL (4.70-6.10); RED CELL DISTRIBUTION WIDTH 23.5 % (12.0-15.0); WHITE BLOOD COUNT 5.1 x10^3/uL (4.8-10.8)
[2024-07-19 17:51] LABS: VBG BASE EXCESS -1.6 mmol/L (-2 - +2); VBG PH 7.496 (7.31-7.41); VBG TOTAL CO2 22.7 mmol/L (24-29)
--- OUTSIDE RECORDS SUMMARY | 2024-07-19 17:57 | EXTERNAL MEDICAL SUMMARY RPT | Continuity of Care Document ---
Author Organization [facility] Address [address] [place] [address] Phone Problems date description facility 2024-06-03 09:44 Weakness [facility] 2024-06-04 00:02 Anemia, unspecified [facility] 2024-06-04 00:02 Unspecified atrial fibrillation [facility] 2024-06-04 00:02 Unspecified atrial flutter [facility] 2024-06-27 13:02 Malignant neoplasm o f right kidney, except renal pelvis [facility] 2024-06-27 13:02 Hematuria, unspecified [facility] 2024-06-27 13:13 Malignant neoplasm o f right kidney, except renal [facility] 2024-06-27 13:13 Hematuria, unspecified [facility] 2024-06-27 13:24 Malignant neoplasm o f right kidney, except renal pelvis [facility] 2024-06-27 13:24 Hematuria, unspecified [facility] 2024-06-27 13:43 Acute myeloblastic l eukemia, not having achieved remission [facility] 2024-06-28 00:01 Malignant neoplasm o f right kidney, except renal pelvis [facility] 2024-06-28 00:01 Hematuria, unspecified [facility] 2024-06-28 08:09 Acute myeloblastic l eukemia, not having achieved remission [facility] 2024-06-28 08:10 Acute myeloblastic l eukemia, not having achieved remission [facility] 2024-07-04 09:14 Weakness [facility] 2024-07-04 09:14 Other fatigue [facility] 2024-07-09 16:17 Acute myeloblastic l eukemia, not having achieved remission [facility] 2024-07-10 08:30 Acute myeloblastic l eukemia, not having achieved remission [facility] 2024-07-10 15:20 Acute myeloblastic l eukemia, not having achieved [facility] 2024-07-11 15:48 Acute myeloblastic l eukemia, not having achieved remission [facility] 2024-07-11 15:48 Other pancytopenia Counts include 234 beds at the [facility] 2024-07-11 15:48 Bone marrow transplant status [facility] 2024-07-11 15:52 Acute myeloblastic l eukemia, not having achieved remission [facility] 2024-07-11 15:52 Other pancytopenia Counts include 234 beds at the [facility] 2024-07-11 15:52 Bone marrow transplant status [facility] 2024-07-11 15:55 Malignant neoplasm of left brandon l pelvis [facility] 2024-07-15 06:42 Malignant neoplasm of left brandon l pelvis [facility] 2024-07-17 09:54 Acute myeloblastic l eukemia, not having achieved remission [facility] 2024-07-17 09:55 Malignant neoplasm of left brandon l pelvis [facility] 2024-07-17 09:55 Acute myeloblastic l eukemia, not having achieved remission [facility] 2024-07-17 09:55 Other pancytopenia Counts include 234 beds at the [facility] 2024-07-17 09:55 Encounter for genera l adult medical examination without abnormal findings [facility] 2024-07-17 09:55 [facility] 2024-07-19 11:28 Malignant neoplasm of left brandon l pelvis [facility] Results/Labs test date facility value unit notes Result panel 1 NUCLEATED RED BLOOD CELLS AUTO 2024-05-29 15:22 [facility] 0.0 /100wbc (missing) BASOPHILS # (AUTO) 2024-05-29 15:22 [facility] 0.0 10 3/ul (missing) EOSINOPHILS # (AUTO) 2024-05-29 15:22 [facility] 0.0 10 3/ul (missing) NRBC ABSOLUTE COUNT (AUTO) 2024-05-29 15:22 [facility] 0.00 x10 3/ul (missing) MONOCYTES # (AUTO) 2024-05-29 15:22 [facility] 0.2 10 3/ul (missing) LYMPHOCYTES # (AUTO) 2024-05-29 15:22 [facility] 0.2 10 3/ul (missing) CREATININE 2024-05-29 15:22 [facility] 1.8 mg/dl As of September 2022 testing method has changed, this may include reference ranges. CHLORIDE 2024-05-29 15:22 [facility] 105 mmol/l As of September 2022 testing method has changed, this may include reference ranges. GLUCOSE 2024-05-29 15:22 [facility] 129 mg/dl As of September 2022 testing method has changed, this may include reference ranges. SODIUM 2024-05-29 15:22 [facility] 138 mmol/l As of September 2022 testing method has changed, this may include reference ranges. RED CELL DISTRIBUTION WIDTH 2024-05-29 15:22 [facility] 16.9 % (missing) RED BLOOD COUNT 2024-05-29 15:22 [facility] 2.75 10 6/ul (missing) BUN - BLOOD UREA NITROGEN 2024-05-29 15:22 [facility] 22 mg/dl As of Sep testing method has changed, this may include reference ranges. CARBON DIOXIDE - CO2 2024-05-29 15: [facility] 24 mmol/l As of September 2022 testing method has changed, this may include reference ranges. HCT - HEMATOCRIT 2024-05-29 15:22 [facility] 26.6 % (missing) NEUTROPHILS # (AUTO) 2024-05-29 15:22 [facility] 3.3 10 3/ul (missing) WHITE BLOOD COUNT 2024-05-29 15:22 [facility] 3.7 x10 3/ul (missing) MEAN CORPUSCULAR HEMOGLOBIN 2024-05-29 15:22 [facility] 30.9 pg (missing) MEAN CORPUSCULAR HGB CONC 2024-05-29 15:22 [facility] 32.0 g/dl (missing) GFR - MDRD 2024-05-29 15:22 [facility] 37 (missin g) Social History date description facility
[2024-07-19 18:05] LABS: INR 1.2 (0.8-1.2); PT - PROTHROMBIN TIME 13.2 secs (9.9-12.6)
[2024-07-19 18:06] LABS: ALBUMIN 3.1 g/dL (3.2-5.5); ALBUMIN/GLOBULIN RATIO 1.2 (1.0-2.2); BILIRUBIN,TOTAL 0.8 mg/dL (0.2-1.0); CALCIUM 8.2 mg/dL (8.5-10.3); POTASSIUM 3.9 mmol/L (3.5-4.5); TOTAL PROTEIN 5.6 g/dL (6.4-8.9)
--- NOTE | 2024-07-19 19:20 | CT Report ---
PROCEDURE: CT Angio Abdomen/Pelvis INDICATIONS: LGi bleed CONTRAST: 100 mL Omnipaque 300 TECHNIQUE: After the administration of intravenous contrast, 2.5 mm thick sections acquired from the diaphragm to the symphysis. 10 mm maximum-intensity projection (MIP) reformats were then acquired. For radiation dose reduction, the following was used: automated exposure control, adjustment of mA and/or kV according to patient size. COMPARISON: CT abdomen/pelvis 03/22/2024 FINDINGS: Image quality: Excellent. VESSELS: Aorta: Mild aortic atherosclerotic calcifications. No aortic aneurysm. Possible small focal dissection flap at the infrarenal abdominal aorta just lateral to the CHARLENE origin (/), which does not appear significantly changed compared to the CT from 03/22/2024 and prior exams dating back to 2021, but is better evaluated on the current exam from. Mesenteric arteries: Celiac trunk, superior and inferior mesenteric arteries appear patent. Renal arteries and accessory renal arteries are patent bilaterally. Pelvic arteries: Mild atherosclerotic calcifications in the common, internal, and external iliac arteries bilaterally without significant stenosis. Mild atherosclerotic calcifications in the included femoral systems CHEST: Lung bases and heart: Mild atelectasis at the left lung base. Electronic device is seen in the left lateral chest with associated metal streak artifact. Small pericardial effusion. ABDOMEN: Liver: No solid mass. Hyperdense appearance of liver on noncontrast sequence. Gallbladder and biliary tree: Small calcified gallstones are present without acute inflammatory changes. Spleen: No splenomegaly. Stable small benign-appearing hypodense lesion at the superior spleen. Pancreas: No pancreatic ductal dilation. Adrenals: No adrenal nodule. Kidneys and ureters: Postsurgical changes are seen with clips of the interpolar region of the left kidney. Heterogeneous attenuation of the central left kidney compatible with previously seen renal mass and postradiation changes. There is mild perinephric fat stranding. Fat stranding is also seen adjacent to the renal pelvis and proximal ureter with no injury. Thickening. Mild left hydroureter without an obstructing lesion. There is also mild right hydronephrosis and hydroureter without an obstructing calculus or mass. Bowel and peritoneum: Multiple diverticula in the colon with fat signs of acute diverticulitis. No extravasation of intravenous contrast material into the bowel lumen. Normal appendix. Small bowel loops and stomach are unremarkable. Lymph nodes: No central or retroperitoneal adenopathy. PELVIS Reproductive organs: Unremarkable. Bladder: Focal bladder wall thickening at the right lateral bladder wall measuring up to 6 mm in thickness. Pelvic lymph nodes: No pelvic adenopathy by size criteria. Bones: No aggressive osseous abnormality. Other: No significant ventral or inguinal hernia. IMPRESSION: 1.No extravasation of contrast material is seen into the bowel lumen. 2.Colonic diverticulosis without signs of acute diverticulitis. 3.Possible small chronic dissection flap at the infrarenal abdominal aorta that does not appear significantly changed when compared to prior nonangiographic exams. No signs of acute aortic syndrome or aortic aneurysm. 4.Heterogeneous attenuation of the left kidney with surrounding fat stranding likely related to posttreatment changes from patient's known renal mass. No significant lymphadenopathy. 5.Mild bilateral hydroureter and mild to moderate hydronephrosis without an obstructing calculus or mass is seen. 6.Focal right lateral bladder wall thickening. Bladder malignancy is not excluded and correlation with cystoscopy is recommended. 7.Hyperdense appearance of the liver on noncontrast CT, which can be seen in the setting of amiodarone therapy or deposition diseases such as hemachromatosis. Recommend clinical correlation. Reviewed by: Aditya Rushing MD on 07/19/2024 7:19 PM PDT Approved by: Aditya Rushing MD on 07/19/2024 7:19 PM PDT Station ID: [id number]
[2024-07-19 19:33] LABS: PLATELET ESTIMATE, MANUAL DECREASED (<130,000) (NORMAL); PLATELET MORPHOLOGY n (NORMAL)
[2024-07-19 19:57] LABS: HCT - HEMATOCRIT 19.2 % (42.0-52.0); HGB - HEMOGLOBIN 6.1 g/dL (14.0-18.0)
[2024-07-19] MEDS ORDERED: ACETAMINOPHEN 325 MG TABLET PO PRN (21:13)
[2024-07-19] MEDS ORDERED: SODIUM CHLORIDE FLUSH 0.9% 10 ML SYRINGE IVP PRN (21:13)
--- NOTE | 2024-07-19 21:19 | HISTORY & PHYSICAL EXAMINATION ---
Chief Complaint Chief Complaint Chief Complaint: Rectal bleeding History of Present Illness Admitted From Admitted From:: Home with History Obtained From History obtained from: Patient and at bedside History of Present Illness HPI Comment/Other: 73-year-old male PMH significant for Danitza's granulomatosis, cancer of the left eye, AML s/p stem cell transplant 2 years ago, hematuria, stage II right kidney cancer s/p radiation so he is off Eliquis, A-fib, cardiac arrest, AICD, thrombocytopenia, for which she sees Dr. Romero. He was at his normal state of health until today, when his noticed that he had bled onto the toilet seat. When asked about any symptoms, he did report that he feels much more tired than normal, and that he gets short of breath with activity. In the ER, lab work revealed a hemoglobin of 7.5. It had been 8.3 on 07/10/2024. He was typed and screened for transfusion, but there was a delay on getting blood because ideally he would need CMV negative irradiated blood. ER discussed his case with pathology, and given that there is no CMV negative irradiated blood for him in this state or in [place], normal irradiated blood could be given. Surgery was contacted by ER provider. Surgery reports that he will need overnight observation to trend his hemoglobin. Surgery states that if any further bleeding were to develop, he will need transfer to a facility that has IR. This was all discussed with patient and family, and they are agreeable to stay here for observation. Hospitalist was contacted for observation Meds/Allgy Home Medications Ambulatory Orders Medication Instructions Recorded Confirmed ofloxacin 0.3 % eye drops 1 drp LEFTEYE QPM 09/19/23 0 07/19/24 prednisolone acetate 1 % eye 1 drp LEFTEYE DAILY 09/1807/19/24 drops,suspension Temporary Disabled Placard 01/18/24 06/27/24 atorvastatin 80 mg tablet 80 mg PO QDAY #90 tabs 01/1707/19/24 pantoprazole 40 mg tablet,delayed 40 mg PO DAILY #90 t abs 01/18/24 07/19/24 release tamsulosin 0.4 mg capsule 0.4 mg PO QDAY #90 caps 10/0307/19/24 sthljeai-zxuiravd-kdllm acid 400 1 tab PO DAILY 07/19/24 mcg-vit K 20 mcg-lycop 300 mcg tablet (One-A-Day Men's Multivitamin) prednisone 5 mg tablet 5 mg PO QDAY #90 tabs 07/19/24 carboxymethylcellulose sodium 0.5 1 drp ophthalmic (ey e) Q1H PRN 06/02/24 06/27/24 % eye drops erythromycin 5 mg/gram (0.5 %) eye 1 applic ophthalmic (eye) QID PRN 06/02/24 06/27/24 ointment magnesium oxide 400 mg PO QDAY 06/02/2406/11 melatonin 1 mg tablet 1 mg PO HS PRN 06/02/2404/06 oxybutynin chloride 5 mg tablet 5 mg PO BID PRN spasms 06/02/24 07/19/24 potassium and sodium phosphates ea PO 06/02/24 5 oral powder thiamine mononitrate (vit B1) 100 100 mg PO QDAY 06/0206/27/24 mg tablet white petrolatum-mineral oil 94 1 applic ophthalmic (e ye) QDAY 06/02/24 07/11/24 %-3 % eye ointment (Systane Nighttime) amiodarone 200 mg tablet 200 mg PO DAILY 90 days #90 tabs 06/03/24 07/19/24 magnesium glycinate mg PO 07/11/24 07/11/24 mecobalamin (vitamin B12) 5,000 5,000 mcg PO QDAY 04/0607/19/24 mcg chewable tablet multivitamin 1 tab PO QDAY 07/11/2407/11 zinc sulfate 50 mg zinc (220 mg) 50 mg PO QDAY 5 07/19/24 capsule (Orazinc) fluticasone propionate 50 2 spray inhalation BID #16 g tanner 07/17/24 07/19/24 mcg/actuation nasal spray,suspension mirtazapine 15 mg tablet mg 07/19/24 Allergies Allergies Allergy/AdvReac Type Severity Reaction Status Date / Time No Known Drug Allergies Allergy Verified 07/19/24 17:22 PFSH Active Problems All Active Problems (Updated 07/19/24 @ 19:41 by Evangelist Queen MD) Rectal bleeding (Acute) Cancer of left renal pelvis (Acute) Left renal mass (Acute) Weakness (Acute) Dehydration (Acute) Renal cancer (Acute) Muscle weakness (Acute) Healthcare maintenance (Acute) 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) Condyloma acuminatum of anus (Acute) Anal fissure (Acute) History of implantable cardioverter-defibrillator (ICD) placement (Acute) Cardiac arrest with ventricular fibrillation (Acute) 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) Pancytopenia (Acute 04/27/23) Atrial fibrillation and flutter (Acute 11/17/22) Rectal pain (Acute) Iron overload due to repeated red blood cell transfusions (Acute) Sarcopenia (Acute) Hydroureter on left (Acute) Thrombocytopenia (Acute) Paroxysmal atrial fibrillation (Acute) Chronic kidney disease, stage 3 (Acute) Danitza's granulomatosis (Acute) Bone marrow transplant status (Acute) Acute blood loss anemia (Acute) GERD (gastroesophageal reflux disease) (Acute) Pulmonary hemorrhage (Acute) Anticoagulant long-term use (Acute) Acute urinary retention (Acute) Lower abdominal pain (Acute) UTI (urinary tract infection) (Acute) Clostridium difficile colitis (Acute) Pancytopenia (Acute) Hemorrhagic cystitis (Acute) Diverticulitis (Acute) A-fib (Chronic) Diabetes (Acute) Anemia (Acute) Gross hematuria (Acute) Anemia (Acute) Chronic kidney disease (Acute) Diastolic heart failure (Acute) Hypokalemia (Acute) History of DVT in adulthood (Acute) Acute kidney injury (Acute) Hypotension (Acute) Medical History Medical History Hemorrhoid Hematuria Mass of right testicle (01/20/23) Severe muscle deconditioning (08/19/22) Sepsis following a procedure, sequela (08/22/22) Cachexia (08/22/22) BPH with lower urinary tract symptoms without urinary obstruction (04/27/23) Antineoplastic chemotherapy induced pancytopenia (08/22/22) Septic shock Surgical History Surgical History Bone marrow replaced by transplant (08/22/22) H/O left knee surgery H/O stem cell transplant H/O knee surgery Family History Family History Mother High blood pressure Alcoholism Heart attack Father Asthma Heart attack Social History Social History Smoking Status: Never smoker Do you dip or chew tobacco?: No Do you vape?: No Patient requests smoking cessation consult: No Initiate information on smoking cessation: No Living arrangement: At home Marital Status: Living Condition: Alone, With spouse/s.o. and Other (has close friend from latter-day who can come help him ) Relationship: Level: Independent Do you feel safe in your home environment?: Yes Suffered physical, verbal, emotional, or financial abuse?: No History of Abuse: No ETOH Use: None Substance Use: denies use Are you sexually active?: No POLST Patient has POLST: No Review of Systems Status of ROS: 10 or more systems reviewed and unremarkable except as noted in history and below Constitutional Reports: Weakness; Denies: Fever or Chills Eyes Reports: Other (Patch over left eye) Cardiovascular Reports: Irregular heart rate (Chronic) and shortness of breath with exertion; Denies: chest pain or palpitations Respiratory Reports: Shortness of breath Gastrointestinal Reports: Vomiting (Looked like normal food) and Rectal bleeding; Denies: Abdominal pain Exam Exam Vital Signs: Vital Signs x48h Temp Pulse Resp BP Pulse Ox 07/19/24 21:30 114 H 16 91/60 97 07/19/24 21:18 113 H 16 99/61 98 07/19/24 20:15 100 20 104/68 99 07/19/24 19:45 105 H 18 94/69 98 07/19/24 19:30 108 H 18 96/65 96 07/19/24 19:15 81 14 79/60 L 94 07/19/24 19:00 111 H 15 92/61 97 07/19/24 18:45 101 H 17 98/61 97 07/19/24 18:30 122 H 15 91/62 100 07/19/24 18:15 114 H 20 94/64 95 07/19/24 18:06 116 H 20 90/66 98 07/19/24 17:22 36.8 C 116 H 18 111/78 98 Constitutional normal general appearance and no apparent distress HENMT normocephalic and head/scalp atraumatic Eyes Patch over left eye Neck/C-Spine visual inspection normal Lymph no lymphadenopathy noted Chest inspection of chest normal Respiratory breath sounds equal bilaterally Cardiovascular normal heart rate noted and rhythm abnormal Gastrointestinal abdomen normal to inspection and abdomen soft to palpation Extremities normal to inspection Neurology GCS 15 Hard of hearing Psychiatry oriented x3 Skin skin color normal Conclusion/Plan Problem List (1) Acute blood loss anemia: Plan: Due to rectal bleeding CTA without obvious source of bleed If his rectal bleeding continues, will need transfer to facility with IR Trend H&H every 8 Needs irradiated blood, initial transfusion ordered by ER provider (2) Xflzw-xq-sbuiiwt kidney injury: Plan: Creatinine appears to be in the 1.4-1.8 range chronically. Creatinine is 2 today. BMP in a.m. (3) Systolic heart failure: Plan: LVEF 41% as of 04/02/2022. Not in acute exacerbation. VICKY, cardiac diet (4) Diabetes: Plan: Diabetes is listed in his history, but his home med list does not show any antidiabetic agents. Glucose 111 on presentation, A1c in the morning (5) A-fib: Plan: Not on anticoagulation due to history of urethral bleeding. Will continue to hold as he is in acute blood loss anemia from rectal bleeding. Restart home dose amiodarone 200 mg p.o. daily (6) Acute myeloid leukemia with myelodysplasia-related changes: Plan: Follows Dr. Romero outpatient Blood transfusion as above Plan Placed in observation Full code His is a surrogate decision-maker Lab Results Lab results reviewed: Yes 07/19/24 19:40 07/19/24 17:39 Core Measures Anticipated LOS I expect patient to be DC'd or transferred within 96 hours.: Yes DVT/VTE - Prophylaxis VTE/DVT Device ordered at admit?: Yes
[2024-07-19 21:44] LABS: HCT - HEMATOCRIT 20.1 % (42.0-52.0)
[2024-07-19 21:54] LABS: HGB - HEMOGLOBIN 6.3 g/dL (14.0-18.0)
[2024-07-20] MEDS: SODIUM CHLORIDE FLUSH 0.9% 10 ML SYRINGE IVP SCH (01:06)
[2024-07-20] MEDS: FLUTICASONE NASAL SPRAY NAS SCH ×2 (01:06→21:40)
[2024-07-20 05:35] LABS: BASOPHILS % (AUTO) 0.2 %; EOSINOPHILS % (AUTO) 0.7 %; HCT - HEMATOCRIT 23.9 % (42.0-52.0); HGB - HEMOGLOBIN 7.6 g/dL (14.0-18.0); LYMPHOCYTES # (AUTO) 0.3 10^3/uL (1.5-3.5); LYMPHOCYTES % (AUTO) 6.8 %; MEAN CORPUSCULAR HEMOGLOBIN 32.3 pg (27.0-31.0); MEAN CORPUSCULAR HGB CONC 31.8 g/dL (32.0-36.0); MEAN CORPUSCULAR VOLUME 101.7 fL (80.0-94.0); MEAN PLATELET VOLUME 9.9 fL (7.4-11.4); MONOCYTES # (AUTO) 0.4 10^3/uL (0.0-1.0); MONOCYTES % (AUTO) 8.9 %; NEUTROPHILS # (AUTO) 3.5 10^3/uL (1.5-6.6); NEUTROPHILS % (AUTO) 82.9 %; PLT - PLATELET COUNT 67 10^3/uL (130-450); RED BLOOD COUNT 2.35 10^6/uL (4.70-6.10); RED CELL DISTRIBUTION WIDTH 22.9 % (12.0-15.0); WHITE BLOOD COUNT 4.3 x10^3/uL (4.8-10.8)
[2024-07-20 05:40] LABS: SLIDE REVIEW? Indicated
[2024-07-20 05:59] LABS: ALBUMIN 2.8 g/dL (3.2-5.5); ALBUMIN/GLOBULIN RATIO 1.3 (1.0-2.2); CALCIUM 7.7 mg/dL (8.5-10.3); CREATININE 1.8 mg/dL (0.6-1.3); MAGNESIUM 1.9 mg/dL (1.7-2.3); POTASSIUM 4.2 mmol/L (3.5-4.5); TOTAL PROTEIN 4.9 g/dL (6.4-8.9)
[2024-07-20 06:02] LABS: PLATELET ESTIMATE, MANUAL DECREASED (<130,000) (NORMAL); PLATELET MORPHOLOGY NORMAL APPEARANCE (NORMAL)
[2024-07-20 06:03] LABS: WBC MORPHOLOGY (MULTIPLE) NORMAL APPEARANCE (NORMAL)
[2024-07-20] MEDS: iohexoL-300 100 ML VIAL IVP ONE (07:14)
[2024-07-20] MEDS: LACTATED RINGERS 1,000 ML IV ONE (09:12)
--- NOTE | 2024-07-20 09:45 | PHARMACY PROGRESS NOTE ---
Best Possible Medication History Admit Date and Time: 07/19/242111 Home Medications Medication Instructions Recorded Confirmed Type ofloxacin 0.3 % eye drops 1 drp LEFTEYE QPM 09/19/23 0 07/19/24 History prednisolone acetate 1 % eye 1 drp LEFTEYE DAILY 09/1807/19/24 History drops,suspension Temporary Disabled Placard 01/18/24 06/27/24 History atorvastatin 80 mg tablet 80 mg PO QDAY #90 tabs 01/1707/19/24 Rx pantoprazole 40 mg tablet,delayed 40 mg PO DAILY #90 t abs 01/18/24 07/19/24 Rx release prednisone 5 mg tablet 5 mg PO QDAY #90 tabs 07/19/24 Rx carboxymethylcellulose sodium 0.5 1 drp ophthalmic (ey e) BID 06/02/24 07/20/24 History % eye drops melatonin 1 mg tablet 1 mg PO HS PRN sleep 5 07/20/24 History white petrolatum-mineral oil 94 1 applic ophthalmic (e ye) BID 06/02/24 07/20/24 History %-3 % eye ointment (Systane Nighttime) amiodarone 200 mg tablet 200 mg PO DAILY 90 days #90 tabs 06/03/24 07/19/24 Rx magnesium glycinate 665 mg PO QPM 07/11/2407/20 History mecobalamin (vitamin B12) 5,000 5,000 mcg PO QDAY 0504/0607/19/24 History mcg chewable tablet zinc sulfate 50 mg zinc (220 mg) 50 mg PO QDAY 5 07/19/24 History capsule (Orazinc) fluticasone propionate 50 2 spray inhalation BID #16 g tanner 07/17/24 07/19/24 Rx mcg/actuation nasal spray,suspension mirtazapine 15 mg tablet 15 mg PO QPM 07/19/24 History Lactobacillus acidophilus 10 10,000 mmu cells PO DAILY 07/20/24 07/20/24 History billion cell capsule (Probacap) tamsulosin 0.4 mg capsule 0.4 mg PO QPM 07/20/2407/20 History Processed by: Pharmacy Medications reviewed in ED?: No Medication History completed: Yes Patient Interview: Completed Secondary Source(s): Spouse/Significant other, Pharmacy records and Insurance records [facility] Statement: As the person ultimately responsible for medication therapy, providers are able to order a medication from an existing home medication list in [facility] via the "Reconcile Routine" prior to Confirmation of that medication by manager support services. Such practice is discouraged except when the physician, in their clinical judgment, deems that a medical need exists for a medication without regard to previous use.
[2024-07-20] MEDS: AMIODARONE 200 MG TABLET PO SCH (11:02)
[2024-07-20] MEDS: ATORVASTATIN 40 MG TABLET PO SCH (11:02)
[2024-07-20] MEDS: TAMSULOSIN 0.4 MG CAPSULE PO SCH (11:03)
[2024-07-20] MEDS: PANTOPRAZOLE 40 MG TABLET PO SCH (11:04)
[2024-07-20] MEDS: predniSONE 5 MG TABLET PO SCH (11:06)
[2024-07-20] MEDS: METOPROLOL 5 MG/5 ML VIAL IVP ONE (11:38)
[2024-07-20] MEDS: MINERAL OIL/PETROLAT OPHTH OINT LEFTEYE SCH (12:31)
[2024-07-20] MEDS: CARBOXYMETHYLCELLULOSE OPHTH DROPS LEFTEYE SCH (12:31)
[2024-07-20] MEDS: prednisoLONE 1% OPHTH DROPS 75 DROPS/5 ML BOTTLE LEFTEYE SCH (12:31)
[2024-07-20] MEDS: LACTOBACILLUS RHAMNOSUS GG CAPSULE PO SCH (12:31)
[2024-07-20 13:56] LABS: HCT - HEMATOCRIT 23.5 % (42.0-52.0); HGB - HEMOGLOBIN 7.5 g/dL (14.0-18.0)
--- NOTE | 2024-07-20 14:03 | XRAY Report ---
PROCEDURE: XR Abdomen 1 V INDICATIONS: abd pain, distension TECHNIQUE: One view of the abdomen acquired. COMPARISON: 07/19/2024 FINDINGS: Surgical changes and devices: Coiling material projects over the left mid abdomen. Left chest wall generator present. Bowel: Bowel gas pattern is normal. Soft tissues: No suspicious abdominal calcifications. Visualized solid organ contours appear normal in size. Bones: No suspicious bony lesions. IMPRESSION: No acute abdominal pathology. Reviewed by: Ad Robertson MD on 07/20/2024 2:02 PM PDT Approved by: Ad Robertson MD on 07/20/2024 2:02 PM PDT Station ID: [id number]
--- NOTE | 2024-07-20 16:23 | PROVIDER PROGRESS NOTE ---
Subjective Prog Note Date Prog Note Date: 07/20/24 Subjective Pt reports feeling: Improved Current Medications Current Medications Current Medications: Current Medications Generic Name Dose Route Start Last Admin Trade Name Kavin PRN Reason Stop Dose Admin Acetaminophen 650 mg 07/19/24 21:13 Acetaminophen 325 Mg Tablet PO Q4HR PRN Pain 1 to 4, or Fever Amiodarone HCl 200 mg 07/20/24 09:00 07/20/24 11:02 Amiodarone 200 Mg Tablet PO 200 mg DAILY JUJU Administration Atorvastatin Calcium 80 mg 07/20/24 09:00 07/20/24 11:02 Atorvastatin 40 Mg Tablet PO 80 mg DAILY JUJU Administration Carboxymethylcellulose 1 drops 07/20/24 12:00 07/20/24 12:31 Carboxymethylcellulose Ophth Drops LEFTEYE 1 drops BID JUJU Administration Cyanocobalamin 1,000 mcg 07/21/24 09:00 Cyanocobalamin 500 Mcg Tablet PO DAILY JUJU Fluticasone Propionate 1 sprays 07/20/24 00:35 07/20/24 11:03 Fluticasone Nasal [place] SHENA 1 spr DAILY JUJU Administration Fluticasone Propionate 1 sprays 07/20/24 21:00 Fluticasone Nasal [place] SHENA BID JUJU Lactated Ringer's 500 mls @ 999 mls/hr 07/20/24 15:59 Lr IV 07/20/24 16:29 ONCE ONE Lactobacillus Rhamnosus 1 cap 07/20/24 12:00 07/20/24 12:31 Lactobacillus Rhamnosus Gg Capsule PO 1 cap DAILY JUJU Administration Magnesium Oxide 400 mg 07/20/24 21:00 Magnesium Oxide 400 Mg Tablet PO QPM [facility] Melatonin 1.5 mg 07/20/24 11:44 Melatonin 3 Mg Tablet PO HS PRN sleep Metoprolol Succinate 25 mg 07/20/24 15:25 Metoprolol Succinate 25 Mg Tablet PO DAILY [facility] Mirtazapine 15 mg 07/20/24 21:00 Mirtazapine 15 Mg Tablet PO QPM [facility] Multi-Ingred Cream/Lotion/Oil/Oint 1 applic 07/20/24 12:00 07/20/24 12:31 Mineral Oil/Petrolat Ophth Oint LEFTEYE 1 drops BID JUJU Administration Ofloxacin 1 drops 07/20/24 21:00 Ofloxacin 0.3% Ophth Drops LEFTEYE QPM JUJU Ondansetron HCl 4 mg 07/19/24 21:13 Ondansetron Odt 4 Mg Tablet TL Q6HR PRN Nausea / Vomiting Ondansetron HCl 4 mg 07/19/24 21:13 Ondansetron 4 Mg/2 Ml Vial IVP Q6HR PRN Nausea / Vomiting Pantoprazole Sodium 40 mg 07/20/24 09:00 07/20/24 11:04 Pantoprazole 40 Mg Tablet PO 40 mg DAILY JUJU Administration Prednisolone 1 drops 07/20/24 12:00 07/20/24 12:31 Prednisolone 1% Ophth Drops 75 Drops/5 Ml Bottle LEFTEYE 1 drops DAILY JUJU Administration Prednisone 5 mg 07/20/24 09:00 07/20/24 11:06 Prednisone 5 Mg Tablet PO 5 mg DAILY JUJU Administration Sodium Chloride 10 ml 07/19/24 21:13 Sodium Chloride Flush 0.9% 10 Ml Syringe IVP PRN PRN NEEDED PER PROVIDER ORDERS Sodium Chloride 10 ml 07/20/24 01:00 07/20/24 11:03 Sodium Chloride Flush 0.9% 10 Ml Syringe IVP 10 ml 0100,0900,1700 JUJU Administration Tamsulosin HCl 0.4 mg 07/20/24 09:00 07/20/24 11:03 Tamsulosin 0.4 Mg Capsule PO 0.4 mg DAILY JUJU Administration Zinc Sulfate 220 mg 07/21/24 09:00 Zinc Sulfate 220 Mg Capsule PO DAILY [facility] Objective Vital Signs/Intake & Output Reviewed Vital Signs: Yes Vital Signs: Vital Signs x48h Temp Pulse Pulse Resp BP Pulse Ox 07/20/24 15:53 36.8 C 120 H 20 95/63 94 07/20/24 11:10 36.5 C 116 H 18 107/74 95 07/20/24 10:15 36.5 C 116 H 16 99/65 96 07/20/24 08:50 125 H 89/60 L Intake & Output: Intake & Output 07/17/24 07/18/24 07/19/24 07/20/24 23:59 23:59 23:59 23:59 Intake Total 2098 Output Total 125 / 125 Balance 2098 178 / 178 Weight (kg) 67.5 kg Objective General Appearance: positive No acute distress (NAD, left eye patch) Eyes Bilateral: negative Normal inspection (Left eye patch) Neck: positive Nml inspection Respiratory: positive Chest non-tender and No respiratory distress Cardiovascular: positive Irregularly irregular and Tachycardia Abdomen: positive Non-tender Skin: positive Color nml Extremities: positive Non-tender Neurologic/Psychiatric: positive Oriented x3 Lab Results 07/20/24 13:40 07/20/24 05:20 Other Labs: Lab Results x24hrs 07/20/24 07/20/24 07/20/24 Range/Units 13:40 05:20 05:20 WBC (4.8-10.8) x10^3/uL RBC (4.70-6.10) 10^6/uL Hgb 7.5 L (14.0-18.0) g/dL Hct 23.5 L (42.0-52.0) % MCV (80.0-94.0) fL MCH (27.0-31.0) pg MCHC (32.0-36.0) g/dL RDW (12.0-15.0) % Plt Count (130-450) 10^3/uL MPV (7.4-11.4) fL Neut # (Auto) (1.5-6.6) 10^3/uL Lymph # (Auto) (1.5-3.5) 10^3/uL [place] # (Auto) (0.0-1.0) 10^3/uL Eos # (Auto) (0.0-0.7) 10^3/uL Baso # (Auto) (0.0-0.1) 10^3/uL Absolute Nucleated RBC x10^3/uL Nucleated RBC % /100WBC Manual Slide Review WBC Morphology (NORMAL) Platelet Estimate (NORMAL) Platelet Morphology (NORMAL) RBC Morph Micro Appear 1+ ACANTHOCYTES 1+ OVALOCYTES (NORMAL) PT (9.9-12.6) secs INR (0.8-1.2) VBG pH (7.31-7.41) VBG pCO2 (41-51) mmHg VBG pO2 (25-47) mmHg VBG HCO3 (23-28) mmol/L VBG Total CO2 (24-29) mmol/L VBG O2 Saturation (60-80) % VBG Base Excess (-2 - +2) mmol/L Sodium 136 (135-145) mmol/L Potassium 4.2 (3.5-4.5) mmol/L Chloride 107 (101-111) mmol/L Carbon Dioxide 23 (21-32) mmol/L Anion Gap 6.0 (6-13) BUN 24 H (6-20) mg/dL Creatinine 1.8 H (0.6-1.3) mg/dL Estimated GFR (MDRD) 37 L (>89) Glucose 86 (74-104) mg/dL Lactic Acid (0.5-2.2) mmol/L Calcium 7.7 L (8.5-10.3) mg/dL Magnesium 1.9 (1.7-2.3) mg/dL Total Bilirubin 1.0 (0.2-1.0) mg/dL AST 9 L (10-42) IU/L ALT 12 (10-60) IU/L Alkaline Phosphatase 73 (42-121) IU/L Total Protein 4.9 L (6.4-8.9) g/dL Albumin 2.8 L (3.2-5.5) g/dL Globulin 2.1 (2.1-4.2) g/dL Albumin/Globulin Ratio 1.3 (1.0-2.2) Blood Type Antibody Screen Crossmatch IS Only 07/20/24 07/20/24 07/19/24 Range/Units 05:20 05:20 21:35 WBC 4.3 L (4.8-10.8) x10^3/uL RBC 2.35 L (4.70-6.10) 10^6/uL Hgb 7.6 L 6.3 L* (14.0-18.0) g/dL Hct 23.9 L 20.1 L (42.0-52.0) % MCV 101.7 H (80.0-94.0) fL MCH 32.3 H (27.0-31.0) pg MCHC 31.8 L (32.0-36.0) g/dL RDW 22.9 H (12.0-15.0) % Plt Count 67 L (130-450) 10^3/uL MPV 9.9 (7.4-11.4) fL Neut # (Auto) 3.5 (1.5-6.6) 10^3/uL Lymph # (Auto) 0.3 L (1.5-3.5) 10^3/uL [place] # (Auto) 0.4 (0.0-1.0) 10^3/uL Eos # (Auto) 0.0 (0.0-0.7) 10^3/uL Baso # (Auto) 0.0 (0.0-0.1) 10^3/uL Absolute Nucleated RBC 0.00 x10^3/uL Nucleated RBC % 0.0 /100WBC Manual Slide Review Indicated WBC Morphology NORMAL APPEARANCE (NORMAL) Platelet Estimate DECREASED (<130,000) (NORMAL) Platelet Morphology NORMAL APPEARANCE (NORMAL) RBC Morph Micro Appear 1+ ANISOCYTOSIS 1+ POIKILOCYTOSIS (NORMAL) PT (9.9-12.6) secs INR (0.8-1.2) VBG pH (7.31-7.41) VBG pCO2 (41-51) mmHg VBG pO2 (25-47) mmHg VBG HCO3 (23-28) mmol/L VBG Total CO2 (24-29) mmol/L VBG O2 Saturation (60-80) % VBG Base Excess (-2 - +2) mmol/L Sodium (135-145) mmol/L Potassium (3.5-4.5) mmol/L Chloride (101-111) mmol/L Carbon Dioxide (21-32) mmol/L Anion Gap (6-13) BUN (6-20) mg/dL Creatinine (0.6-1.3) mg/dL Estimated GFR (MDRD) (>89) Glucose (74-104) mg/dL Lactic Acid (0.5-2.2) mmol/L Calcium (8.5-10.3) mg/dL Magnesium (1.7-2.3) mg/dL Total Bilirubin (0.2-1.0) mg/dL AST (10-42) IU/L ALT (10-60) IU/L Alkaline Phosphatase (42-121) IU/L Total Protein (6.4-8.9) g/dL Albumin (3.2-5.5) g/dL Globulin (2.1-4.2) g/dL Albumin/Globulin Ratio (1.0-2.2) Blood Type Antibody Screen Crossmatch IS Only 07/19/24 07/19/24 07/19/24 Range/Units 19:40 17:39 17:39 WBC (4.8-10.8) x10^3/uL RBC (4.70-6.10) 10^6/uL Hgb 6.1 L* (14.0-18.0) g/dL Hct 19.2 L* (42.0-52.0) % MCV (80.0-94.0) fL MCH (27.0-31.0) pg MCHC (32.0-36.0) g/dL RDW (12.0-15.0) % Plt Count (130-450) 10^3/uL MPV (7.4-11.4) fL Neut # (Auto) (1.5-6.6) 10^3/uL Lymph # (Auto) (1.5-3.5) 10^3/uL [place] # (Auto) (0.0-1.0) 10^3/uL Eos # (Auto) (0.0-0.7) 10^3/uL Baso # (Auto) (0.0-0.1) 10^3/uL Absolute Nucleated RBC x10^3/uL Nucleated RBC % /100WBC Manual Slide Review WBC Morphology (NORMAL) Platelet Estimate (NORMAL) Platelet Morphology (NORMAL) RBC Morph Micro Appear 2+ POIKILOCYTOSIS 1+ HYPOCHROMASIA (NORMAL) PT 13.2 H (9.9-12.6) secs INR 1.2 (0.8-1.2) VBG pH 7.496 H (7.31-7.41) VBG pCO2 28.0 L (41-51) mmHg VBG pO2 40.0 (25-47) mmHg VBG HCO3 21.8 L (23-28) mmol/L VBG Total CO2 22.7 L (24-29) mmol/L VBG O2 Saturation 65.0 (60-80) % VBG Base Excess -1.6 (-2 - +2) mmol/L Sodium 134 L (135-145) mmol/L Potassium 3.9 (3.5-4.5) mmol/L Chloride 103 (101-111) mmol/L Carbon Dioxide 23 (21-32) mmol/L Anion Gap 8.0 (6-13) BUN 29 H (6-20) mg/dL Creatinine 2.0 H (0.6-1.3) mg/dL Estimated GFR (MDRD) 33 L (>89) Glucose 111 H (74-104) mg/dL Lactic Acid 1.9 (0.5-2.2) mmol/L Calcium 8.2 L (8.5-10.3) mg/dL Magnesium (1.7-2.3) mg/dL Total Bilirubin 0.8 (0.2-1.0) mg/dL AST 11 (10-42) IU/L ALT 15 (10-60) IU/L Alkaline Phosphatase 82 (42-121) IU/L Total Protein 5.6 L (6.4-8.9) g/dL Albumin 3.1 L (3.2-5.5) g/dL Globulin 2.5 (2.1-4.2) g/dL Albumin/Globulin Ratio 1.2 (1.0-2.2) Blood Type AB POSITIVE Antibody Screen NEGATIVE Crossmatch IS Only See Detail 07/19/24 Range/Units 17:39 WBC 5.1 (4.8-10.8) x10^3/uL RBC 2.29 L (4.70-6.10) 10^6/uL Hgb 7.5 L (14.0-18.0) g/dL Hct 23.9 L (42.0-52.0) % MCV 104.4 H (80.0-94.0) fL MCH 32.8 H (27.0-31.0) pg MCHC 31.4 L (32.0-36.0) g/dL RDW 23.5 H (12.0-15.0) % Plt Count 73 L (130-450) 10^3/uL MPV 9.8 (7.4-11.4) fL Neut # (Auto) 4.4 (1.5-6.6) 10^3/uL Lymph # (Auto) 0.2 L (1.5-3.5) 10^3/uL [place] # (Auto) 0.5 (0.0-1.0) 10^3/uL Eos # (Auto) 0.0 (0.0-0.7) 10^3/uL Baso # (Auto) 0.0 (0.0-0.1) 10^3/uL Absolute Nucleated RBC 0.00 x10^3/uL Nucleated RBC % 0.0 /100WBC Manual Slide Review WBC Morphology (NORMAL) Platelet Estimate DECREASED (<130,000) (NORMAL) Platelet Morphology n (NORMAL) RBC Morph Micro Appear 2+ ANISOCYTOSIS (NORMAL) PT (9.9-12.6) secs INR (0.8-1.2) VBG pH (7.31-7.41) VBG pCO2 (41-51) mmHg VBG pO2 (25-47) mmHg VBG HCO3 (23-28) mmol/L VBG Total CO2 (24-29) mmol/L VBG O2 Saturation (60-80) % VBG Base Excess (-2 - +2) mmol/L Sodium (135-145) mmol/L Potassium (3.5-4.5) mmol/L Chloride (101-111) mmol/L Carbon Dioxide (21-32) mmol/L Anion Gap (6-13) BUN (6-20) mg/dL Creatinine (0.6-1.3) mg/dL Estimated GFR (MDRD) (>89) Glucose (74-104) mg/dL Lactic Acid (0.5-2.2) mmol/L Calcium (8.5-10.3) mg/dL Magnesium (1.7-2.3) mg/dL Total Bilirubin (0.2-1.0) mg/dL AST (10-42) IU/L ALT (10-60) IU/L Alkaline Phosphatase (42-121) IU/L Total Protein (6.4-8.9) g/dL Albumin (3.2-5.5) g/dL Globulin (2.1-4.2) g/dL Albumin/Globulin Ratio (1.0-2.2) Blood Type Antibody Screen Crossmatch IS Only Assessment/Plan Problem List (1) Acute blood loss anemia: Impression: Due to rectal bleeding CTA without obvious source If his bleeding restarts, will need transfer to facility with IR Continue to trend H&H every 8 hours Okay for irradiated blood as CMV negative irradiated blood is not available Hemoglobin after transfusion was 7.6 this morning and 7.5 this afternoon (2) A-fib: Impression: Appears to be only managed with amiodarone at home. He has had some consistently high heart rates, last heart rate was 120 I started metoprolol 25 mg p.o. daily Added telemetry He has had some soft blood pressures, 500 mL IVF bolus was ordered to help tolerate the metoprolol (3) Vrkih-[id number]-[id number] kidney injury: Impression: CR 1.8. IVF BMP daily (4) Systolic heart failure: Impression: LVEF 41% as of 04/02/2022. Not in acute exacerbation. VICKY, cardiac diet (5) Diabetes: Impression: Diabetes is listed in his history, but his home med list does not show any antidiabetic agents. 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 Romero outpatient Blood transfusion as above
[2024-07-20] MEDS: LACTATED RINGERS 500 ML IV ONE (16:24)
[2024-07-20] MEDS: METOPROLOL SUCCINATE 25 MG TABLET PO SCH (16:59)
[2024-07-20] MEDS ORDERED: TAMSULOSIN 0.4 MG CAPSULE PO SCH (21:00)
[2024-07-20 21:28] LABS: HCT - HEMATOCRIT 21.7 % (42.0-52.0)
[2024-07-20] MEDS: OFLOXACIN 0.3% OPHTH DROPS LEFTEYE SCH (21:32)
[2024-07-20] MEDS: MAGNESIUM OXIDE 400 MG TABLET PO SCH (21:39)
[2024-07-20] MEDS: MELATONIN 3 MG TABLET PO PRN (21:44)
[2024-07-21] MEDS: MELATONIN 3 MG TABLET PO PRN (00:58)
[2024-07-21 05:17] LABS: BASOPHILS % (AUTO) 0.2 %; EOSINOPHILS % (AUTO) 0.8 %; HCT - HEMATOCRIT 25.9 % (42.0-52.0); HGB - HEMOGLOBIN 8.4 g/dL (14.0-18.0); LYMPHOCYTES # (AUTO) 0.4 10^3/uL (1.5-3.5); LYMPHOCYTES % (AUTO) 8.1 %; MEAN CORPUSCULAR HEMOGLOBIN 31.8 pg (27.0-31.0); MEAN CORPUSCULAR HGB CONC 32.4 g/dL (32.0-36.0); MEAN CORPUSCULAR VOLUME 98.1 fL (80.0-94.0); MEAN PLATELET VOLUME 9.8 fL (7.4-11.4); MONOCYTES # (AUTO) 0.4 10^3/uL (0.0-1.0); MONOCYTES % (AUTO) 8.1 %; NEUTROPHILS # (AUTO) 4.1 10^3/uL (1.5-6.6); NEUTROPHILS % (AUTO) 82.4 %; PLT - PLATELET COUNT 62 10^3/uL (130-450); RED BLOOD COUNT 2.64 10^6/uL (4.70-6.10); RED CELL DISTRIBUTION WIDTH 22.1 % (12.0-15.0); WHITE BLOOD COUNT 4.9 x10^3/uL (4.8-10.8)
[2024-07-21 05:19] LABS: SLIDE REVIEW? Indicated
[2024-07-21 05:34] LABS: CALCIUM 7.9 mg/dL (8.5-10.3); CREATININE 1.8 mg/dL (0.6-1.3); POTASSIUM 4.3 mmol/L (3.5-4.5)
[2024-07-21 05:38] LABS: PLATELET ESTIMATE, MANUAL DECREASED (<130,000) (NORMAL); PLATELET MORPHOLOGY NORMAL APPEARANCE (NORMAL); WBC MORPHOLOGY (MULTIPLE) NORMAL APPEARANCE (NORMAL)
[2024-07-21] MEDS: MIRTAZAPINE 15 MG TABLET PO SCH (07:17)
[2024-07-21] MEDS: ZINC SULFATE 220 MG CAPSULE PO SCH (08:07)
[2024-07-21] MEDS: CYANOCOBALAMIN 500 MCG TABLET PO SCH (08:07)
[2024-07-21] MEDS: METOPROLOL TARTRATE 25 MG TABLET PO SCH (13:05)
[2024-07-21 13:53] LABS: ESTIMATED AVERAGE GLUCOSE 143 mg/dL (70-100); HEMOGLOBIN A1c% 6.6 % (4.27-6.07)
[2024-07-21 13:56] LABS: HCT - HEMATOCRIT 26.8 % (42.0-52.0); HGB - HEMOGLOBIN 8.8 g/dL (14.0-18.0)
--- NOTE | 2024-07-21 14:47 | PROVIDER PROGRESS NOTE ---
Subjective Prog Note Date Prog Note Date: 07/21/24 Subjective Pt reports feeling: No change Subjective: Asymptomatic at this time Current Medications Current Medications Current Medications: Current Medications Generic Name Dose Route Start Last Admin Trade Name Freq PRN Reason Stop Dose Admin Acetaminophen 650 mg 07/19/24 21:13 Acetaminophen 325 Mg Tablet PO Q4HR PRN Pain 1 to 4, or Fever Amiodarone HCl 200 mg 07/20/24 09:00 07/21/24 08:00 Amiodarone 200 Mg Tablet PO 200 mg DAILY JUJU Administration Atorvastatin Calcium 80 mg 07/20/24 09:00 07/21/24 08:00 Atorvastatin 40 Mg Tablet PO 80 mg DAILY JUJU Administration Carboxymethylcellulose 1 drops 07/20/24 12:00 07/21/24 08:12 Carboxymethylcellulose Ophth Drops LEFTEYE Not Given BID JUJU Cyanocobalamin 1,000 mcg 07/21/24 09:00 07/21/24 08:07 Cyanocobalamin 500 Mcg Tablet PO 1,000 mcg DAILY JUJU Administration Fluticasone Propionate 1 sprays 07/20/24 21:00 07/21/24 08:00 Fluticasone Nasal [place] SHENA 1 spr BID JUJU Administration Lactobacillus Rhamnosus 1 cap 07/20/24 12:00 07/21/24 08:00 Lactobacillus Rhamnosus Gg Capsule PO 1 cap DAILY JUJU Administration Magnesium Oxide 400 mg 07/20/24 21:00 07/20/24 21:39 Magnesium Oxide 400 Mg Tablet PO 400 mg QPM JUJU Administration Melatonin 3 mg 07/21/24 00:31 07/21/24 00:58 Melatonin 3 Mg Tablet PO 3 mg QPM PRN Administration sleep Metoprolol Tartrate 25 mg 07/21/24 12:00 07/21/24 13:05 Metoprolol Tartrate 25 Mg Tablet PO 25 mg BID JUJU Administration Multi-Ingred Cream/Lotion/Oil/Oint 1 applic 07/20/24 12:00 07/21/24 08:01 Mineral Oil/Petrolat Ophth Oint LEFTEYE 1 drops BID JUJU Administration Ofloxacin 1 drops 07/20/24 21:00 07/20/24 21:32 Ofloxacin 0.3% Ophth Drops LEFTEYE 1 drops QPM JUJU Administration Ondansetron HCl 4 mg 07/19/24 21:13 Ondansetron Odt 4 Mg Tablet TL Q6HR PRN Nausea / Vomiting Ondansetron HCl 4 mg 07/19/24 21:13 Ondansetron 4 Mg/2 Ml Vial IVP Q6HR PRN Nausea / Vomiting Pantoprazole Sodium 40 mg 07/20/24 09:00 07/21/24 08:00 Pantoprazole 40 Mg Tablet PO 40 mg DAILY JUJU Administration Prednisolone 1 drops 07/20/24 12:00 07/21/24 08:00 Prednisolone 1% Ophth Drops 75 Drops/5 Ml Bottle LEFTEYE 1 drops DAILY JUJU Administration Prednisone 5 mg 07/20/24 09:00 07/21/24 08:00 Prednisone 5 Mg Tablet PO 5 mg DAILY JUJU Administration Sodium Chloride 10 ml 07/19/24 21:13 Sodium Chloride Flush 0.9% 10 Ml Syringe IVP PRN PRN NEEDED PER PROVIDER ORDERS Sodium Chloride 10 ml 07/20/24 01:00 07/21/24 08:01 Sodium Chloride Flush 0.9% 10 Ml Syringe IVP 10 ml 0100,0900,1700 JUJU Administration Tamsulosin HCl 0.4 mg 07/20/24 09:00 07/21/24 08:00 Tamsulosin 0.4 Mg Capsule PO 0.4 mg DAILY JUJU Administration Zinc Sulfate 220 mg 07/21/24 09:00 07/21/24 08:07 Zinc Sulfate 220 Mg Capsule PO 220 mg DAILY JUJU Administration Objective Vital Signs/Intake & Output Reviewed Vital Signs: Yes Vital Signs: Vital Signs x48h Temp Pulse Pulse Resp BP BP Pulse Ox 07/21/24 13:42 36.5 C 115 H 16 91/60 98 07/21/24 13:05 116 H 88/60 L 07/21/24 13:04 36.5 C 116 H 16 88/60 L 98 07/21/24 12:19 36.7 C 121 H 18 98/68 94 07/21/24 07:49 36.4 C L 122 H 16 93/70 93 Intake & Output: Intake & Output 07/18/24 07/19/24 07/20/24 07/21/24 23:59 23:59 23:59 23:59 Intake Total 2098 2196 / 2196 1340 / 1340 Output Total 125 / 125 Balance 2098 1340 / 1340 Weight (kg) 67.5 kg Objective General Appearance: positive No acute distress (NAD, left eye patch) Eyes Bilateral: negative Normal inspection (Left eye patch) Neck: positive Nml inspection Respiratory: positive Chest non-tender and No respiratory distress Cardiovascular: positive Tachycardia (Sinus tachycardia versus atrial flutter on telemetry) Abdomen: positive Non-tender Skin: positive Color nml Extremities: positive Non-tender Neurologic/Psychiatric: positive Oriented x3 Lab Results 07/21/24 13:40 07/21/24 05:05 Other Labs: Lab Results x24hrs 07/21/24 07/21/24 07/21/24 Range/Units 13:40 05:05 05:05 WBC 4.9 (4.8-10.8) x10^3/uL RBC 2.64 L (4.70-6.10) 10^6/uL Hgb 8.8 L 8.4 L (14.0-18.0) g/dL Hct 26.8 L 25.9 L (42.0-52.0) % MCV 98.1 H (80.0-94.0) fL MCH 31.8 H (27.0-31.0) pg MCHC 32.4 (32.0-36.0) g/dL RDW 22.1 H (12.0-15.0) % Plt Count 62 L (130-450) 10^3/uL MPV 9.8 (7.4-11.4) fL Neut # (Auto) 4.1 (1.5-6.6) 10^3/uL Lymph # (Auto) 0.4 L (1.5-3.5) 10^3/uL [place] # (Auto) 0.4 (0.0-1.0) 10^3/uL Eos # (Auto) 0.0 (0.0-0.7) 10^3/uL Baso # (Auto) 0.0 (0.0-0.1) 10^3/uL Absolute Nucleated RBC 0.00 x10^3/uL Nucleated RBC % 0.0 /100WBC Manual Slide Review Indicated WBC Morphology NORMAL APPEARANCE (NORMAL) Platelet Estimate DECREASED (<130,000) (NORMAL) Platelet Morphology NORMAL APPEARANCE (NORMAL) RBC Morph Micro Appear 1+ OVALOCYTES 2+ ANISOCYTOSIS (NORMAL) Sodium 136 (135-145) mmol/L Potassium 4.3 (3.5-4.5) mmol/L Chloride 108 (101-111) mmol/L Carbon Dioxide 23 (21-32) mmol/L Anion Gap 5.0 L (6-13) BUN 22 H (6-20) mg/dL Creatinine 1.8 H (0.6-1.3) mg/dL Estimated GFR (MDRD) 37 L (>89) Glucose 112 H (74-104) mg/dL Calcium 7.9 L (8.5-10.3) mg/dL Blood Type Antibody Screen Crossmatch IS Only 07/20/24 07/19/24 Range/Units 21:17 17:39 WBC (4.8-10.8) x10^3/uL RBC (4.70-6.10) 10^6/uL Hgb 7.0 L* (14.0-18.0) g/dL Hct 21.7 L (42.0-52.0) % MCV (80.0-94.0) fL MCH (27.0-31.0) pg MCHC (32.0-36.0) g/dL RDW (12.0-15.0) % Plt Count (130-450) 10^3/uL MPV (7.4-11.4) fL Neut # (Auto) (1.5-6.6) 10^3/uL Lymph # (Auto) (1.5-3.5) 10^3/uL [place] # (Auto) (0.0-1.0) 10^3/uL Eos # (Auto) (0.0-0.7) 10^3/uL Baso # (Auto) (0.0-0.1) 10^3/uL Absolute Nucleated RBC x10^3/uL Nucleated RBC % /100WBC Manual Slide Review WBC Morphology (NORMAL) Platelet Estimate (NORMAL) Platelet Morphology (NORMAL) RBC Morph Micro Appear (NORMAL) Sodium (135-145) mmol/L Potassium (3.5-4.5) mmol/L Chloride (101-111) mmol/L Carbon Dioxide (21-32) mmol/L Anion Gap (6-13) BUN (6-20) mg/dL Creatinine (0.6-1.3) mg/dL Estimated GFR (MDRD) (>89) Glucose (74-104) mg/dL Calcium (8.5-10.3) mg/dL Blood Type AB POSITIVE Antibody Screen NEGATIVE Crossmatch IS Only See Detail Assessment/Plan Problem List (1) A-fib: Impression: Appears to be only managed with amiodarone at home. He has had some consistently high heart rates, last heart rate was 120 I started metoprolol 25 mg p.o. daily Added telemetry He has had some soft blood pressures, 500 mL IVF bolus was ordered to help tolerate the metoprolol 07/21/2024: Continues to have elevated heart rates in the 110s to 120s. I ordered an EKG which shows sinus tachycardia versus atrial flutter. He has history of paroxysmal A-fib as well as a flutter. I have increased his dose of metoprolol to 25 metoprolol tartrate twice daily and will continue telemetry. Completely asymptomatic (2) Acute blood loss anemia: Impression: Due to rectal bleeding CTA without obvious source If his bleeding restarts, will need transfer to facility with IR Continue to trend H&H every 8 hours Okay for irradiated blood as CMV negative irradiated blood is not available Hemoglobin after transfusion was 7.6 this morning and 7.5 this afternoon 07/21/2024: Bleeding has resolved, H&H stable (3) [id number] kidney injury: Impression: CR 1.8. IVF BMP daily (4) Systolic heart failure: Impression: LVEF 41% as of 04/02/2022. Not in acute exacerbation. VICKY, cardiac diet (5) Diabetes: Impression: Diabetes is listed in his history, but his home med list does not show any antidiabetic agents. 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 Romero outpatient Blood transfusion as above
[2024-07-21 21:54] LABS: HCT - HEMATOCRIT 25.9 % (42.0-52.0); HGB - HEMOGLOBIN 8.6 g/dL (14.0-18.0)
[2024-07-21] MEDS: diltiaZEM INJ 5 MG/ML VIAL IVP ONE (22:10)
[2024-07-21] MEDS: LACTATED RINGERS 1,000 ML IV ONE (22:44)
[2024-07-22 05:19] LABS: BASOPHILS % (AUTO) 0.4 %; EOSINOPHILS # (AUTO) 0.1 10^3/uL (0.0-0.7); EOSINOPHILS % (AUTO) 1.1 %; HGB - HEMOGLOBIN 9.1 g/dL (14.0-18.0); LYMPHOCYTES # (AUTO) 0.5 10^3/uL (1.5-3.5); LYMPHOCYTES % (AUTO) 8.4 %; MEAN CORPUSCULAR HEMOGLOBIN 31.6 pg (27.0-31.0); MEAN CORPUSCULAR HGB CONC 32.5 g/dL (32.0-36.0); MEAN CORPUSCULAR VOLUME 97.2 fL (80.0-94.0); MEAN PLATELET VOLUME 9.7 fL (7.4-11.4); MONOCYTES # (AUTO) 0.5 10^3/uL (0.0-1.0); MONOCYTES % (AUTO) 8.3 %; NEUTROPHILS # (AUTO) 4.4 10^3/uL (1.5-6.6); NEUTROPHILS % (AUTO) 81.2 %; PLT - PLATELET COUNT 61 10^3/uL (130-450); RED BLOOD COUNT 2.88 10^6/uL (4.70-6.10); RED CELL DISTRIBUTION WIDTH 22.1 % (12.0-15.0); WHITE BLOOD COUNT 5.5 x10^3/uL (4.8-10.8)
[2024-07-22 05:23] LABS: SLIDE REVIEW? Indicated
[2024-07-22 05:38] LABS: CALCIUM 7.8 mg/dL (8.5-10.3); CREATININE 1.7 mg/dL (0.6-1.3); POTASSIUM 3.9 mmol/L (3.5-4.5)
[2024-07-22 05:40] LABS: PLATELET ESTIMATE, MANUAL DECREASED (<130,000) (NORMAL); PLATELET MORPHOLOGY NORMAL APPEARANCE (NORMAL); WBC MORPHOLOGY (MULTIPLE) NORMAL APPEARANCE (NORMAL)
[2024-07-22] MEDS: AMIODARONE 150 MG/100 ML 100 ML IV ONE (13:05)
[2024-07-22 13:26] LABS: MAGNESIUM 1.7 mg/dL (1.7-2.3); PHOSPHORUS 2.1 mg/dL (2.5-5.0)
[2024-07-22] MEDS: AMIODARONE 360 MG/200 ML 200 ML IV ONE (13:27)
[2024-07-22] MEDS: ONDANSETRON ODT 4 MG TABLET TL PRN (13:29)
[2024-07-22 13:47] LABS: HCT - HEMATOCRIT 26.6 % (42.0-52.0); HGB - HEMOGLOBIN 8.9 g/dL (14.0-18.0)
[2024-07-22] MEDS: ONDANSETRON 4 MG/2 ML VIAL IVP PRN (14:04)
[2024-07-22] MEDS: LACTATED RINGERS 500 ML IV ONE ×3 (14:50→20:10)
--- NOTE | 2024-07-22 16:29 | PROVIDER PROGRESS NOTE ---
Subjective Prog Note Date Prog Note Date: 07/22/24 Subjective Pt reports feeling: No change Current Medications Current Medications Current Medications: Current Medications Generic Name Dose Route Start Last Admin Trade Name Kavin PRN Reason Stop Dose Admin Acetaminophen 650 mg 07/19/24 21:13 Acetaminophen 325 Mg Tablet PO Q4HR PRN Pain 1 to 4, or Fever Atorvastatin Calcium 80 mg 07/20/24 09:00 07/22/24 09:20 Atorvastatin 40 Mg Tablet PO 80 mg DAILY JUJU Administration Carboxymethylcellulose 1 drops 07/20/24 12:00 07/22/24 09:20 Carboxymethylcellulose Ophth Drops LEFTEYE 1 drops BID JUJU Administration Cyanocobalamin 1,000 mcg 07/21/24 09:00 07/22/24 09:20 Cyanocobalamin 500 Mcg Tablet PO 1,000 mcg DAILY JUJU Administration Fluticasone Propionate 1 sprays 07/20/24 21:00 07/22/24 09:20 Fluticasone Nasal [place] SHENA 1 spr BID JUJU Administration Amiodarone HCl/Dextrose 200 mls @ 33.333 mls/hr 07/22/24 12:22 07/22/24 13:27 Nexterone 360 Mg/200 Ml IV 07/22/24 18:21 33.33 mls/hr ONCE ONE Administration Lactobacillus Rhamnosus 1 cap 07/20/24 12:00 07/22/24 09:20 Lactobacillus Rhamnosus Gg Capsule PO 1 cap DAILY JUJU Administration Magnesium Oxide 400 mg 07/20/24 21:00 07/21/24 20:10 Magnesium Oxide 400 Mg Tablet PO 400 mg QPM JUJU Administration Melatonin 3 mg 07/21/24 00:31 07/21/24 00:58 Melatonin 3 Mg Tablet PO 3 mg QPM PRN Administration sleep Metoprolol Tartrate 25 mg 07/21/24 12:00 07/22/24 09:21 Metoprolol Tartrate 25 Mg Tablet PO 25 mg BID JUJU Administration Multi-Ingred Cream/Lotion/Oil/Oint 1 applic 07/20/24 12:00 07/22/24 09:21 Mineral Oil/Petrolat Ophth Oint LEFTEYE 1 drops BID JUJU Administration Ofloxacin 1 drops 07/20/24 21:00 07/21/24 20:06 Ofloxacin 0.3% Ophth Drops LEFTEYE 1 drops QPM JUJU Administration Ondansetron HCl 4 mg 07/19/24 21:13 07/22/24 13:29 Ondansetron Odt 4 Mg Tablet TL 4 mg Q6HR PRN Administration Nausea / Vomiting Ondansetron HCl 4 mg 07/19/24 21:13 07/22/24 14:04 Ondansetron 4 Mg/2 Ml Vial IVP 4 mg Q6HR PRN Administration Nausea / Vomiting Pantoprazole Sodium 40 mg 07/20/24 09:00 07/22/24 09:20 Pantoprazole 40 Mg Tablet PO 40 mg DAILY JUJU Administration Prednisolone 1 drops 07/20/24 12:00 07/22/24 09:21 Prednisolone 1% Ophth Drops 75 Drops/5 Ml Bottle LEFTEYE 1 drops DAILY JUJU Administration Prednisone 5 mg 07/20/24 09:00 07/22/24 09:20 Prednisone 5 Mg Tablet PO 5 mg DAILY JUJU Administration Sodium Chloride 10 ml 07/19/24 21:13 Sodium Chloride Flush 0.9% 10 Ml Syringe IVP PRN PRN NEEDED PER PROVIDER ORDERS Sodium Chloride 10 ml 07/20/24 01:00 07/22/24 09:21 Sodium Chloride Flush 0.9% 10 Ml Syringe IVP 10 ml 0100,0900,1700 JUJU Administration Tamsulosin HCl 0.4 mg 07/20/24 09:00 07/22/24 09:20 Tamsulosin 0.4 Mg Capsule PO 0.4 mg DAILY JUJU Administration Zinc Sulfate 220 mg 07/21/24 09:00 07/22/24 09:20 Zinc Sulfate 220 Mg Capsule PO 220 mg DAILY JUJU Administration Objective Vital Signs/Intake & Output Reviewed Vital Signs: Yes Vital Signs: Vital Signs x48h Temp Pulse Pulse Resp BP BP Pulse Ox 07/22/24 16:15 113 H 18 96/68 94 07/22/24 16:00 36.6 C 111 H 16 91/66 95 07/22/24 15:45 111 H 19 89/66 L 94 07/22/24 15:30 113 H 20 89/62 L 93 07/22/24 15:15 115 H 13 89/58 L 94 07/22/24 15:00 113 H 19 78/58 L 93 07/22/24 14:55 113 H 19 82/60 L 96 07/22/24 14:50 116 H 18 79/62 L 95 07/22/24 14:45 117 H 15 76/56 L 96 07/22/24 14:40 116 H 25 H 82/61 L 95 07/22/24 14:39 116 H 15 83/62 L 93 07/22/24 14:25 115 H 19 88/67 L 94 07/22/24 14:20 117 H 14 87/62 L 94 07/22/24 14:15 118 H 17 91/67 95 07/22/24 14:10 122 H 15 71/50 L 90 L 07/22/24 14:05 120 H 25 H 97 07/22/24 14:00 68 31 H 90 L 07/22/24 13:55 117 H 17 95 07/22/24 13:50 116 H 17 95 07/22/24 13:45 116 H 19 94 07/22/24 13:40 117 H 14 95 07/22/24 13:35 115 H 18 94 07/22/24 13:30 115 H 18 96 07/22/24 13:25 85 16 96 07/22/24 13:19 36.6 C 07/22/24 13:05 124 H 24 89/68 L 95 07/22/24 12:06 37.2 C 122 H 20 107/73 93 07/22/24 09:21 126 H 103/70 Intake & Output: Intake & Output 07/19/24 07/20/24 07/21/24 07/22/24 23:59 23:59 23:59 23:59 Intake Total 2098 2196 / 219 2440 / 2440 340 / 340 Output Total 125 / 125 20 / 20 Balance 2098 2440 / 2440 320 / 320 Weight (kg) 67.5 kg Objective General Appearance: positive No acute distress (NAD, left eye patch) Eyes Bilateral: negative Normal inspection (Left eye patch) Neck: positive Nml inspection Respiratory: positive Chest non-tender and No respiratory distress Cardiovascular: positive Tachycardia (Sinus tachycardia versus atrial flutter on telemetry) Abdomen: positive Non-tender Skin: positive Color nml Extremities: positive Non-tender Neurologic/Psychiatric: positive Oriented x3 Lab Results 07/22/24 13:35 07/22/24 05:12 Other Labs: Lab Results x24hrs 07/22/24 07/22/24 07/22/24 Range/Units 14:48 13:35 13:00 WBC (4.8-10.8) x10^3/uL RBC (4.70-6.10) 10^6/uL Hgb 8.9 L (14.0-18.0) g/dL Hct 26.6 L (42.0-52.0) % MCV (80.0-94.0) fL MCH (27.0-31.0) pg MCHC (32.0-36.0) g/dL RDW (12.0-15.0) % Plt Count (130-450) 10^3/uL MPV (7.4-11.4) fL Neut # (Auto) (1.5-6.6) 10^3/uL Lymph # (Auto) (1.5-3.5) 10^3/uL [place] # (Auto) (0.0-1.0) 10^3/uL Eos # (Auto) (0.0-0.7) 10^3/uL Baso # (Auto) (0.0-0.1) 10^3/uL Absolute Nucleated RBC x10^3/uL Nucleated RBC % /100WBC Manual Slide Review WBC Morphology (NORMAL) Platelet Estimate (NORMAL) Platelet Morphology (NORMAL) RBC Morph Micro Appear (NORMAL) Sodium (135-145) mmol/L Potassium (3.5-4.5) mmol/L Chloride (101-111) mmol/L Carbon Dioxide (21-32) mmol/L Anion Gap (6-13) BUN (6-20) mg/dL Creatinine (0.6-1.3) mg/dL Estimated GFR (MDRD) (>89) Glucose (74-104) mg/dL Calcium (8.5-10.3) mg/dL Phosphorus (2.5-5.0) mg/dL Magnesium (1.7-2.3) mg/dL Troponin I High Sens 11.4 (2.3-19.7) ng/L Nasal Screen MRSA (PCR) NEGATIVE (NEGATIVE) 07/22/24 07/22/24 07/22/24 Range/Units 12:58 05:32 05:12 WBC (4.8-10.8) x10^3/uL RBC (4.70-6.10) 10^6/uL Hgb (14.0-18.0) g/dL Hct (42.0-52.0) % MCV (80.0-94.0) fL MCH (27.0-31.0) pg MCHC (32.0-36.0) g/dL RDW (12.0-15.0) % Plt Count (130-450) 10^3/uL MPV (7.4-11.4) fL Neut # (Auto) (1.5-6.6) 10^3/uL Lymph # (Auto) (1.5-3.5) 10^3/uL [place] # (Auto) (0.0-1.0) 10^3/uL Eos # (Auto) (0.0-0.7) 10^3/uL Baso # (Auto) (0.0-0.1) 10^3/uL Absolute Nucleated RBC x10^3/uL Nucleated RBC % /100WBC Manual Slide Review WBC Morphology (NORMAL) Platelet Estimate (NORMAL) Platelet Morphology (NORMAL) RBC Morph Micro Appear 1+ ACANTHOCYTES (NORMAL) Sodium 137 (135-145) mmol/L Potassium 3.9 (3.5-4.5) mmol/L Chloride 107 (101-111) mmol/L Carbon Dioxide 23 (21-32) mmol/L Anion Gap 7.0 (6-13) BUN 20 (6-20) mg/dL Creatinine 1.7 H (0.6-1.3) mg/dL Estimated GFR (MDRD) 40 L (>89) Glucose 100 (74-104) mg/dL Calcium 7.8 L (8.5-10.3) mg/dL Phosphorus 2.1 L (2.5-5.0) mg/dL Magnesium 1.7 (1.7-2.3) mg/dL Troponin I High Sens 14.2 (2.3-19.7) ng/L Nasal Screen MRSA (PCR) (NEGATIVE) 07/22/24 07/22/24 07/21/24 Range/Units 05:12 05:12 21:38 WBC 5.5 (4.8-10.8) x10^3/uL RBC 2.88 L (4.70-6.10) 10^6/uL Hgb 9.1 L 8.6 L (14.0-18.0) g/dL Hct 28.0 L 25.9 L (42.0-52.0) % MCV 97.2 H (80.0-94.0) fL MCH 31.6 H (27.0-31.0) pg MCHC 32.5 (32.0-36.0) g/dL RDW 22.1 H (12.0-15.0) % Plt Count 61 L (130-450) 10^3/uL MPV 9.7 (7.4-11.4) fL Neut # (Auto) 4.4 (1.5-6.6) 10^3/uL Lymph # (Auto) 0.5 L (1.5-3.5) 10^3/uL [place] # (Auto) 0.5 (0.0-1.0) 10^3/uL Eos # (Auto) 0.1 (0.0-0.7) 10^3/uL Baso # (Auto) 0.0 (0.0-0.1) 10^3/uL Absolute Nucleated RBC 0.00 x10^3/uL Nucleated RBC % 0.0 /100WBC Manual Slide Review Indicated WBC Morphology NORMAL APPEARANCE (NORMAL) Platelet Estimate DECREASED (<130,000) (NORMAL) Platelet Morphology NORMAL APPEARANCE (NORMAL) RBC Morph Micro Appear 1+ OVALOCYTES 2+ ANISOCYTOSIS (NORMAL) Sodium (135-145) mmol/L Potassium (3.5-4.5) mmol/L Chloride (101-111) mmol/L Carbon Dioxide (21-32) mmol/L Anion Gap (6-13) BUN (6-20) mg/dL Creatinine (0.6-1.3) mg/dL Estimated GFR (MDRD) (>89) Glucose (74-104) mg/dL Calcium (8.5-10.3) mg/dL Phosphorus (2.5-5.0) mg/dL Magnesium (1.7-2.3) mg/dL Troponin I High Sens (2.3-19.7) ng/L Nasal Screen MRSA (PCR) (NEGATIVE) Assessment/Plan Problem List (1) A-fib: Impression: Appears to be only managed with amiodarone at home. He has had some consistently high heart rates, last heart rate was 120 I started metoprolol 25 mg p.o. daily Added telemetry He has had some soft blood pressures, 500 mL IVF bolus was ordered to help tolerate the metoprolol 07/21/2024: Continues to have elevated heart rates in the 110s to 120s. I ordered an EKG which shows sinus tachycardia versus atrial flutter. He has history of paroxysmal A-fib as well as a flutter. I have increased his dose of metoprolol to 25 metoprolol tartrate twice daily and will continue telemetry. Completely asymptomatic 07/22/2024: On further review of notes, it appears he was on metoprolol until last January, when it was discontinued by his PCP. I reached out to cardiology at [facility], where he got most of his care. I asked for updated recommendations as he has history of atrial fibrillation and flutter. We agree that this is probably atrial flutter. He recommended IV amiodarone to see if this would correct his rate. Patient was transferred to the ICU and amiodarone bolus and drip was initiated. Last charted heart rate is 113. Continuing p.o. metoprolol. I gave a 500 mL liter LR bolus to help with hypotension from amiodarone. If his tachycardia does not resolve, we will reach out to EP at either [facility] or [facility] for transfer for VIPIN/cardioversion. Patient is not anticoagulated, so this will be a very high risk procedure. We are continuing to hold his anticoagulant as he has had multiple episodes of bleeding including hematuria and GI bleeding (2) Acute blood loss anemia: Impression: Due to rectal bleeding CTA without obvious source If his bleeding restarts, will need transfer to facility with IR Continue to trend H&H every 8 hours Okay for irradiated blood as CMV negative irradiated blood is not available Hemoglobin after transfusion was 7.6 this morning and 7.5 this afternoon 07/21/2024: Bleeding has resolved, H&H stable 07/22/2024: Hemoglobin remained stable. 8.9 at last check (3) [id number] kidney injury: Impression: CR 1.8. BMP daily (4) Systolic heart failure: Impression: LVEF 41% as of 04/02/2022. Not in acute exacerbation. VICKY, cardiac diet (5) Diabetes: Impression: Diabetes is listed in his history, but his home med list does not show any antidiabetic agents. A1c 6.6. Glucose has been well-controlled without any insulin. 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 Romero outpatient Blood transfusion as above
[2024-07-22] MEDS ORDERED: METOPROLOL 5 MG/5 ML VIAL IVP PRN (20:44)
[2024-07-22] MEDS: AMIODARONE 360 MG/200 ML 200 ML IV SCH (21:08)
[2024-07-22] MEDS: METOPROLOL 5 MG/5 ML VIAL IVP STA (21:08)
[2024-07-22] MEDS: LACTATED RINGERS 1,000 ML IV ONE (21:14)
[2024-07-22 21:36] LABS: HCT - HEMATOCRIT 25.1 % (42.0-52.0); HGB - HEMOGLOBIN 8.2 g/dL (14.0-18.0)
[2024-07-23 04:55] LABS: BASOPHILS % (AUTO) 0.4 %; EOSINOPHILS # (AUTO) 0.1 10^3/uL (0.0-0.7); EOSINOPHILS % (AUTO) 1.4 %; HCT - HEMATOCRIT 27.6 % (42.0-52.0); LYMPHOCYTES # (AUTO) 0.6 10^3/uL (1.5-3.5); LYMPHOCYTES % (AUTO) 9.7 %; MEAN CORPUSCULAR HEMOGLOBIN 32.5 pg (27.0-31.0); MEAN CORPUSCULAR HGB CONC 32.6 g/dL (32.0-36.0); MEAN CORPUSCULAR VOLUME 99.6 fL (80.0-94.0); MONOCYTES # (AUTO) 0.5 10^3/uL (0.0-1.0); MONOCYTES % (AUTO) 8.6 %; NEUTROPHILS # (AUTO) 4.5 10^3/uL (1.5-6.6); NEUTROPHILS % (AUTO) 79.4 %; PLT - PLATELET COUNT 73 10^3/uL (130-450); RED BLOOD COUNT 2.77 10^6/uL (4.70-6.10); RED CELL DISTRIBUTION WIDTH 21.8 % (12.0-15.0); WHITE BLOOD COUNT 5.7 x10^3/uL (4.8-10.8)
[2024-07-23 05:04] LABS: CALCIUM 7.7 mg/dL (8.5-10.3); CREATININE 1.6 mg/dL (0.6-1.3); POTASSIUM 4.2 mmol/L (3.5-4.5)
[2024-07-23 05:29] LABS: PLATELET ESTIMATE, MANUAL DECREASED (<130,000) (NORMAL)
[2024-07-23] MEDS: PANTOPRAZOLE 40 MG TABLET PO SCH (09:07)
[2024-07-23] MEDS: METOPROLOL 5 MG/5 ML VIAL IVP STA ×2 (09:20→10:31)
[2024-07-23] MEDS: LACTATED RINGERS 1,000 ML IV ONE (09:22)
[2024-07-23] MEDS: MAGNESIUM SULFATE 2 GRAM 2 GM/50 ML BAG IV ONE (12:39)
[2024-07-23] MEDS: METOPROLOL 5 MG/5 ML VIAL IVP ONE (12:39)
[2024-07-23] MEDS: SODIUM CHLORIDE 0.9% 1,000 ML IV SCH (16:49)
[2024-07-23] MEDS: diltiaZEM INJ 125 MG in DEXTROSE 5% 100 ML IV SCH (16:49)
[2024-07-23] MEDS: DIGOXIN 500 MCG/2 ML AMP IVP SCH (18:23)
--- NOTE | 2024-07-23 18:30 | PROVIDER PROGRESS NOTE ---
Subjective Prog Note Date Prog Note Date: 07/23/24 Subjective Pt reports feeling: No change Current Medications Current Medications Current Medications: Current Medications Generic Name Dose Route Start Last Admin Trade Name Freq PRN Reason Stop Dose Admin Acetaminophen 650 mg 07/19/24 21:13 Acetaminophen 325 Mg Tablet PO Q4HR PRN Pain 1 to 4, or Fever Atorvastatin Calcium 80 mg 07/20/24 09:00 07/23/24 09:07 Atorvastatin 40 Mg Tablet PO 80 mg DAILY JUJU Administration Carboxymethylcellulose 1 drops 07/20/24 12:00 07/23/24 09:07 Carboxymethylcellulose Ophth Drops LEFTEYE 1 drops BID JUJU Administration Cyanocobalamin 1,000 mcg 07/21/24 09:00 07/23/24 09:07 Cyanocobalamin 500 Mcg Tablet PO 1,000 mcg DAILY JUJU Administration Digoxin 250 mcg 07/23/24 19:00 07/23/24 18:23 Digoxin 500 Mcg/2 Ml Amp IVP 07/24/24 07:01 250 mcg Q6H JUJU Administration Digoxin 125 mcg 07/24/24 09:00 Digoxin 125 Mcg Tablet PO DAILY JUJU Fluticasone Propionate 1 sprays 07/20/24 21:00 07/23/24 09:07 Fluticasone Nasal [place] SHENA 1 spr BID JUJU Administration Diltiazem HCl 125 mg/ Dextrose 125 mls @ 5 mls/hr 07/23/24 17:00 07/23/24 18:17 IV 5 mg/hr .Q25H JUJU 5 mls/hr Titration Protocol 5 MG/HR Sodium Chloride 1,000 mls @ 100 mls/hr 07/23/24 17:00 07/23/24 16:49 Normal Saline 0.9% IV 100 mls/hr .Q10H JUJU Administration Lactobacillus Rhamnosus 1 cap 07/20/24 12:00 07/23/24 09:07 Lactobacillus Rhamnosus Gg Capsule PO 1 cap DAILY JUJU Administration Magnesium Oxide 400 mg 07/20/24 21:00 07/22/24 21:35 Magnesium Oxide 400 Mg Tablet PO 400 mg QPM JUJU Administration Melatonin 3 mg 07/21/24 00:31 07/21/24 00:58 Melatonin 3 Mg Tablet PO 3 mg QPM PRN Administration sleep Multi-Ingred Cream/Lotion/Oil/Oint 1 applic 07/20/24 12:00 07/23/24 09:08 Mineral Oil/Petrolat Ophth Oint LEFTEYE 1 drops BID JUJU Administration Ofloxacin 1 drops 07/20/24 21:00 07/22/24 21:37 Ofloxacin 0.3% Ophth Drops LEFTEYE 1 drops QPM JUJU Administration Ondansetron HCl 4 mg 07/19/24 21:13 07/22/24 13:29 Ondansetron Odt 4 Mg Tablet TL 4 mg Q6HR PRN Administration Nausea / Vomiting Ondansetron HCl 4 mg 07/19/24 21:13 07/22/24 14:04 Ondansetron 4 Mg/2 Ml Vial IVP 4 mg Q6HR PRN Administration Nausea / Vomiting Pantoprazole Sodium 40 mg 07/23/24 09:00 07/23/24 09:07 Pantoprazole 40 Mg Tablet PO 40 mg QDAC JUJU Administration Prednisolone 1 drops 07/20/24 12:00 07/23/24 09:08 Prednisolone 1% Ophth Drops 75 Drops/5 Ml Bottle LEFTEYE 1 drops DAILY JUJU Administration Prednisone 5 mg 07/20/24 09:00 07/23/24 09:07 Prednisone 5 Mg Tablet PO 5 mg DAILY JUJU Administration Sodium Chloride 10 ml 07/19/24 21:13 Sodium Chloride Flush 0.9% 10 Ml Syringe IVP PRN PRN NEEDED PER PROVIDER ORDERS Sodium Chloride 10 ml 07/20/24 01:00 07/23/24 17:06 Sodium Chloride Flush 0.9% 10 Ml Syringe IVP 10 ml 0100,0900,1700 JUJU Administration Tamsulosin HCl 0.4 mg 07/20/24 09:00 07/23/24 09:07 Tamsulosin 0.4 Mg Capsule PO 0.4 mg DAILY JUJU Administration Objective Vital Signs/Intake & Output Reviewed Vital Signs: Yes Vital Signs: Vital Signs x48h Temp Pulse Pulse Resp BP BP Pulse Ox 07/23/24 18:23 118 H 07/23/24 18:00 119 H 21 82/52 L 94 07/23/24 17:00 115 H 20 81/57 L 91 L 07/23/24 17:00 116 H 20 81/57 L 91 L 07/23/24 16:00 115 H 18 89/61 L 91 L 07/23/24 15:00 118 H 18 93/59 L 96 07/23/24 14:00 113 H 13 87/61 L 92 07/23/24 13:00 110 H 12 96/66 96 07/23/24 12:39 112 H 95/56 L 07/23/24 12:00 37.3 C 111 H 18 96/65 95 07/23/24 11:00 109 H 18 95/62 95 07/23/24 10:31 115 H 100/62 O2 Flow Rate 07/23/24 18:23 07/23/24 18:00 07/23/24 17:00 07/23/24 17:00 07/23/24 16:00 07/23/24 15:00 07/23/24 14:00 07/23/24 13:00 07/23/24 12:39 07/23/24 12:00 2 07/23/24 11:00 2 07/23/24 10:31 Intake & Output: Intake & Output 07/20/24 07/21/24 07/22/24 07/23/24 23:59 23:59 23:59 23:59 Intake Total 2196 / 2196 2440 / 2440 3040 / 3040 1513 / 1513 Output Total 125 / 125 695 / 695 700 / 700 Balance 2071 / 2071 2440 / 2440 2345 / 2345 813 / 813 Objective General Appearance: positive No acute distress (NAD, left eye patch) Eyes Bilateral: negative Normal inspection (Left eye patch) Neck: positive Nml inspection Respiratory: positive Chest non-tender and No respiratory distress Cardiovascular: positive Tachycardia (Sinus tachycardia versus atrial flutter on telemetry) Abdomen: positive Non-tender Skin: positive Color nml Extremities: positive Non-tender Neurologic/Psychiatric: positive Oriented x3 Lab Results 07/23/24 04:30 07/23/24 04:30 Other Labs: Lab Results x24hrs 07/23/24 07/23/24 07/23/24 Range/Units 04:30 04:30 04:30 WBC 5.7 (4.8-10.8) x10^3/uL RBC 2.77 L (4.70-6.10) 10^6/uL Hgb 9.0 L (14.0-18.0) g/dL Hct 27.6 L (42.0-52.0) % MCV 99.6 H (80.0-94.0) fL MCH 32.5 H (27.0-31.0) pg MCHC 32.6 (32.0-36.0) g/dL RDW 21.8 H (12.0-15.0) % Plt Count 73 L (130-450) 10^3/uL MPV 10.0 (7.4-11.4) fL Neut # (Auto) 4.5 (1.5-6.6) 10^3/uL Lymph # (Auto) 0.6 L (1.5-3.5) 10^3/uL [place] # (Auto) 0.5 (0.0-1.0) 10^3/uL Eos # (Auto) 0.1 (0.0-0.7) 10^3/uL Baso # (Auto) 0.0 (0.0-0.1) 10^3/uL Absolute Nucleated RBC 0.00 x10^3/uL Nucleated RBC % 0.0 /100WBC Platelet Estimate DECREASED (<130,000) (NORMAL) RBC Morph Micro Appear 1+ OVALOCYTES 2+ ACANTHOCYTES 2+ ANISOCYTOSIS (NORMAL) Sodium 136 (135-145) mmol/L Potassium 4.2 (3.5-4.5) mmol/L Chloride 106 (101-111) mmol/L Carbon Dioxide 24 (21-32) mmol/L Anion Gap 6.0 (6-13) BUN 18 (6-20) mg/dL Creatinine 1.6 H (0.6-1.3) mg/dL Estimated GFR (MDRD) 43 L (>89) Glucose 100 (74-104) mg/dL Calcium 7.7 L (8.5-10.3) mg/dL Crossmatch IS Only 07/22/24 07/19/24 Range/Units 21:25 17:39 WBC (4.8-10.8) x10^3/uL RBC (4.70-6.10) 10^6/uL Hgb 8.2 L (14.0-18.0) g/dL Hct 25.1 L (42.0-52.0) % MCV (80.0-94.0) fL MCH (27.0-31.0) pg MCHC (32.0-36.0) g/dL RDW (12.0-15.0) % Plt Count (130-450) 10^3/uL MPV (7.4-11.4) fL Neut # (Auto) (1.5-6.6) 10^3/uL Lymph # (Auto) (1.5-3.5) 10^3/uL [place] # (Auto) (0.0-1.0) 10^3/uL Eos # (Auto) (0.0-0.7) 10^3/uL Baso # (Auto) (0.0-0.1) 10^3/uL Absolute Nucleated RBC x10^3/uL Nucleated RBC % /100WBC Platelet Estimate (NORMAL) RBC Morph Micro Appear (NORMAL) Sodium (135-145) mmol/L Potassium (3.5-4.5) mmol/L Chloride (101-111) mmol/L Carbon Dioxide (21-32) mmol/L Anion Gap (6-13) BUN (6-20) mg/dL Creatinine (0.6-1.3) mg/dL Estimated GFR (MDRD) (>89) Glucose (74-104) mg/dL Calcium (8.5-10.3) mg/dL Crossmatch IS Only See Detail Assessment/Plan Problem List (1) A-fib: Impression: Appears to be only managed with amiodarone at home. He has had some consistently high heart rates, last heart rate was 120 I started metoprolol 25 mg p.o. daily Added telemetry He has had some soft blood pressures, 500 mL IVF bolus was ordered to help tolerate the metoprolol 07/21/2024: Continues to have elevated heart rates in the 110s to 120s. I ordered an EKG which shows sinus tachycardia versus atrial flutter. He has history of paroxysmal A-fib as well as a flutter. I have increased his dose of metoprolol to 25 metoprolol tartrate twice daily and will continue telemetry. Completely asymptomatic 07/22/2024: On further review of notes, it appears he was on metoprolol until last January, when it was discontinued by his PCP. I reached out to cardiology at [facility], where he got most of his care. I asked for updated recommendations as he has history of atrial fibrillation and flutter. We agree that this is probably atrial flutter. He recommended IV amiodarone to see if this would correct his rate. Patient was transferred to the ICU and amiodarone bolus and drip was initiated. Last charted heart rate is 113. Continuing p.o. metoprolol. I gave a 500 mL liter LR bolus to help with hypotension from amiodarone. If his tachycardia does not resolve, we will reach out to EP at either [facility] or [place] for transfer for VIPIN/cardioversion. Patient is not anticoagulated, so this will be a very high risk procedure. We are continuing to hold his anticoagulant as he has had multiple episodes of bleeding including hematuria and GI bleeding 07/23/2024: His rate is still uncontrolled after a day of amiodarone. I attempted a one-time push of diltiazem last night with no effect other than lowering his blood pressure. This morning, I attempted rate control with metoprolol IV push x 3 with no improvement. I reached out to [facility] cardiology again for potential transfer. They recommended loading with digoxin and repeating echocardiogram as well as stopping the amiodarone. They also recommended starting a diltiazem drip. We will continue to attempt rate control as much as blood pressure will allow overnight and then follow-up with cardiology tomorrow. The pathology secretary I spoke to today, Reynaldo Monte, reports that he would be a poor candidate for cardioversion as he would need to tolerate anticoagulant for at least 30 days but is more than willing to follow-up on this (2) Acute blood loss anemia: Impression: Due to rectal bleeding CTA without obvious source If his bleeding restarts, will need transfer to facility with IR Continue to trend H&H every 8 hours Okay for irradiated blood as CMV negative irradiated blood is not available Hemoglobin after transfusion was 7.6 this morning and 7.5 this afternoon 07/21/2024: Bleeding has resolved, H&H stable 07/22/2024: Hemoglobin remained stable. 8.9 at last check 07/23/2024: Hemoglobin 9 today (3) [id number] kidney injury: Impression: CR 1.7. BMP daily (4) Systolic heart failure: Impression: LVEF 41% as of 04/02/2022. Not in acute exacerbation. VICKY, cardiac diet 07/23/2024: Ordered repeat echo per pathology secretary recommendation (5) Diabetes: Impression: Diabetes is listed in his history, but his home med list does not show any antidiabetic agents. A1c 6.6. Glucose has been well-controlled without any insulin. 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 Romero outpatient Blood transfusion as above
[2024-07-24 04:40] LABS: BASOPHILS % (AUTO) 0.2 %; EOSINOPHILS # (AUTO) 0.1 10^3/uL (0.0-0.7); EOSINOPHILS % (AUTO) 1.1 %; HCT - HEMATOCRIT 24.4 % (42.0-52.0); HGB - HEMOGLOBIN 7.8 g/dL (14.0-18.0); LYMPHOCYTES # (AUTO) 0.3 10^3/uL (1.5-3.5); LYMPHOCYTES % (AUTO) 6.6 %; MEAN CORPUSCULAR HEMOGLOBIN 32.1 pg (27.0-31.0); MEAN CORPUSCULAR VOLUME 100.4 fL (80.0-94.0); MONOCYTES # (AUTO) 0.4 10^3/uL (0.0-1.0); MONOCYTES % (AUTO) 9.6 %; NEUTROPHILS # (AUTO) 3.8 10^3/uL (1.5-6.6); NEUTROPHILS % (AUTO) 82.1 %; PLT - PLATELET COUNT 51 10^3/uL (130-450); RED BLOOD COUNT 2.43 10^6/uL (4.70-6.10); RED CELL DISTRIBUTION WIDTH 21.4 % (12.0-15.0); WHITE BLOOD COUNT 4.6 x10^3/uL (4.8-10.8)
[2024-07-24 04:57] LABS: CALCIUM 6.9 mg/dL (8.5-10.3); CREATININE 1.5 mg/dL (0.6-1.3); POTASSIUM 3.9 mmol/L (3.5-4.5)
[2024-07-24 05:18] LABS: PLATELET ESTIMATE, MANUAL DECREASED (<130,000) (NORMAL)
[2024-07-24] MEDS: DIGOXIN 125 MCG TABLET PO SCH (08:10)
[2024-07-24 11:00] LABS: HCT - HEMATOCRIT 24.4 % (42.0-52.0); HGB - HEMOGLOBIN 7.9 g/dL (14.0-18.0)
--- NOTE | 2024-07-24 14:26 | PROVIDER PROGRESS NOTE ---
Subjective Prog Note Date Prog Note Date: 07/24/24 Subjective Subjective: Patient has no complaints. he feels OK today. no chest pain or palpitations. he is not symptomatic with his atrial fib. He has had painless bright red blood per rectum. He has gotten 2 units of red cells this admit, but none in several days. Current Medications Current Medications Current Medications: Current Medications Generic Name Dose Route Start Last Admin Trade Name Freq PRN Reason Stop Dose Admin Acetaminophen 650 mg 07/19/24 21:13 Acetaminophen 325 Mg Tablet PO Q4HR PRN Pain 1 to 4, or Fever Atorvastatin Calcium 80 mg 07/20/24 09:00 07/24/24 08:01 Atorvastatin 40 Mg Tablet PO 80 mg DAILY JUJU Administration Carboxymethylcellulose 1 drops 07/20/24 12:00 07/24/24 08:01 Carboxymethylcellulose Ophth Drops LEFTEYE 1 drops BID JUJU Administration Cyanocobalamin 1,000 mcg 07/21/24 09:00 07/24/24 08:01 Cyanocobalamin 500 Mcg Tablet PO 1,000 mcg DAILY JUJU Administration Digoxin 125 mcg 07/24/24 09:00 07/24/24 08:10 Digoxin 125 Mcg Tablet PO 125 mcg DAILY JUJU Administration Fluticasone Propionate 1 sprays 07/20/24 21:00 07/24/24 08:03 Fluticasone Nasal [place] SHENA 1 spr BID JUJU Administration Diltiazem HCl 125 mg/ Dextrose 125 mls @ 5 mls/hr 07/23/24 17:00 07/24/24 02:48 IV 0 mg/hr .Q25H JUJU 0 mls/hr Titration Protocol 5 MG/HR Lactobacillus Rhamnosus 1 cap 07/20/24 12:00 07/24/24 08:01 Lactobacillus Rhamnosus Gg Capsule PO 1 cap DAILY JUJU Administration Magnesium Oxide 400 mg 07/20/24 21:00 07/23/24 20:08 Magnesium Oxide 400 Mg Tablet PO 400 mg QPM JUJU Administration Melatonin 3 mg 07/21/24 00:31 07/23/24 22:59 Melatonin 3 Mg Tablet PO 3 mg QPM PRN Administration sleep Mirtazapine 15 mg 07/24/24 21:00 Mirtazapine 15 Mg Tablet PO QPM JUJU Multi-Ingred Cream/Lotion/Oil/Oint 1 applic 07/20/24 12:00 07/24/24 08:05 Mineral Oil/Petrolat Ophth Oint LEFTEYE 1 drops BID JUJU Administration Ofloxacin 1 drops 07/20/24 21:00 07/23/24 20:09 Ofloxacin 0.3% Ophth Drops LEFTEYE 1 drops QPM JUJU Administration Ondansetron HCl 4 mg 07/19/24 21:13 07/22/24 13:29 Ondansetron Odt 4 Mg Tablet TL 4 mg Q6HR PRN Administration Nausea / Vomiting Ondansetron HCl 4 mg 07/19/24 21:13 07/22/24 14:04 Ondansetron 4 Mg/2 Ml Vial IVP 4 mg Q6HR PRN Administration Nausea / Vomiting Pantoprazole Sodium 40 mg 07/23/24 09:00 07/24/24 06:12 Pantoprazole 40 Mg Tablet PO 40 mg QDAC JUJU Administration Prednisolone 1 drops 07/20/24 12:00 07/24/24 08:04 Prednisolone 1% Ophth Drops 75 Drops/5 Ml Bottle LEFTEYE 1 drops DAILY JUJU Administration Prednisone 5 mg 07/20/24 09:00 07/24/24 08:01 Prednisone 5 Mg Tablet PO 5 mg DAILY JUJU Administration Sodium Chloride 10 ml 07/19/24 21:13 Sodium Chloride Flush 0.9% 10 Ml Syringe IVP PRN PRN NEEDED PER PROVIDER ORDERS Sodium Chloride 10 ml 07/20/24 01:00 07/24/24 08:05 Sodium Chloride Flush 0.9% 10 Ml Syringe IVP 10 ml 0100,0900,1700 JUJU Administration Tamsulosin HCl 0.4 mg 07/20/24 09:00 07/24/24 08:01 Tamsulosin 0.4 Mg Capsule PO 0.4 mg DAILY JUJU Administration Objective Vital Signs/Intake & Output Reviewed Vital Signs: Yes Vital Signs: Vital Signs x48h Temp Pulse Resp BP Pulse Ox 07/24/24 14:00 80 20 96/56 L 95 07/24/24 14:00 77 16 96/56 L 96 07/24/24 13:48 36.8 C 86 13 100/54 L 96 07/24/24 13:31 37.1 C 89 14 92/58 L 96 07/24/24 13:00 86 11 L 102/50 L 96 07/24/24 12:00 37.0 C 07/24/24 12:00 85 18 97/53 L 95 07/24/24 11:00 85 14 102/50 L 94 07/24/24 09:50 81 15 85/50 L 97 07/24/24 08:56 85 18 96/58 L 95 07/24/24 08:00 36.8 C 82 16 100/56 L 96 07/24/24 07:00 84 13 91/53 L 97 Intake & Output: Intake & Output 07/21/24 07/22/24 07/23/24 07/24/24 23:59 23:59 23:59 23:59 Intake Total 2440 / 2440 3040 / 3040 2052 Output Total 695 / 695 900 / 900 126 / 126 Balance 2440 / 2440 2345 / 2345 1153 / 1153 1913 / 1913 Objective General Appearance: positive No acute distress and Alert Eyes Bilateral: positive Normal inspection ENT: positive ENT inspection nml Neck: positive Nml inspection Respiratory: positive Chest non-tender, No respiratory distress and Breath sounds nml Cardiovascular: positive Other (has not been tachycardic all day, off diltiazem. post OR, tachy to 110's. dilt resumed. ) Abdomen: positive Non-tender Rectal: positive Bloody stool and Hemorrhoid (internal, actively bleeding) Back: positive Nml inspection Skin: positive Color nml Extremities: positive Non-tender and No pedal edema Neurologic/Psychiatric: positive Oriented x3 Lab Results 07/24/24 10:00 07/24/24 04:32 Other Labs: Lab Results x24hrs 07/24/24 07/24/24 07/24/24 Range/Units 11:28 10:00 04:32 WBC (4.8-10.8) x10^3/uL RBC (4.70-6.10) 10^6/uL Hgb 7.9 L (14.0-18.0) g/dL Hct 24.4 L (42.0-52.0) % MCV (80.0-94.0) fL MCH (27.0-31.0) pg MCHC (32.0-36.0) g/dL RDW (12.0-15.0) % Plt Count (130-450) 10^3/uL MPV (7.4-11.4) fL Neut # (Auto) (1.5-6.6) 10^3/uL Lymph # (Auto) (1.5-3.5) 10^3/uL [place] # (Auto) (0.0-1.0) 10^3/uL Eos # (Auto) (0.0-0.7) 10^3/uL Baso # (Auto) (0.0-0.1) 10^3/uL Absolute Nucleated RBC x10^3/uL Nucleated RBC % /100WBC Platelet Estimate (NORMAL) RBC Morph Micro Appear 1+ ACANTHOCYTES (NORMAL) Sodium 135 (135-145) mmol/L Potassium 3.9 (3.5-4.5) mmol/L Chloride 108 (101-111) mmol/L Carbon Dioxide 23 (21-32) mmol/L Anion Gap 4.0 L (6-13) BUN 15 (6-20) mg/dL Creatinine 1.5 H (0.6-1.3) mg/dL Estimated GFR (MDRD) 46 L (>89) Glucose 106 H (74-104) mg/dL Calcium 6.9 L (8.5-10.3) mg/dL Blood Type AB POSITIVE Antibody Screen NEGATIVE Crossmatch IS Only See Detail 07/24/24 07/24/24 Range/Units 04:32 04:32 WBC 4.6 L (4.8-10.8) x10^3/uL RBC 2.43 L (4.70-6.10) 10^6/uL Hgb 7.8 L (14.0-18.0) g/dL Hct 24.4 L (42.0-52.0) % MCV 100.4 H (80.0-94.0) fL MCH 32.1 H (27.0-31.0) pg MCHC 32.0 (32.0-36.0) g/dL RDW 21.4 H (12.0-15.0) % Plt Count 51 L (130-450) 10^3/uL MPV 10.0 (7.4-11.4) fL Neut # (Auto) 3.8 (1.5-6.6) 10^3/uL Lymph # (Auto) 0.3 L (1.5-3.5) 10^3/uL [place] # (Auto) 0.4 (0.0-1.0) 10^3/uL Eos # (Auto) 0.1 (0.0-0.7) 10^3/uL Baso # (Auto) 0.0 (0.0-0.1) 10^3/uL Absolute Nucleated RBC 0.00 x10^3/uL Nucleated RBC % 0.0 /100WBC Platelet Estimate DECREASED (<130,000) (NORMAL) RBC Morph Micro Appear 1+ OVALOCYTES 1+ ANISOCYTOSIS (NORMAL) Sodium (135-145) mmol/L Potassium (3.5-4.5) mmol/L Chloride (101-111) mmol/L Carbon Dioxide (21-32) mmol/L Anion Gap (6-13) BUN (6-20) mg/dL Creatinine (0.6-1.3) mg/dL Estimated GFR (MDRD) (>89) Glucose (74-104) mg/dL Calcium (8.5-10.3) mg/dL Blood Type Antibody Screen Crossmatch IS Only Assessment/Plan Problem List (1) Acute blood loss anemia: Impression: Acute drop in Hgb overnight associated with rectal bleeding. he has been transfused one unit of RBCs today. repeat Hgb post OR and again in the AM. Laboratory Tests 07/22/24 07/23/24 07/24/24 21:25 04:30 04:32 Hgb 8.2 L 9.0 L 7.8 L 07/24/24 10:00 Hgb 7.9 L (2) Internal and external bleeding hemorrhoids: Impression: examined today with Dr Fraga. Actively bleeding hemorrhoid. This is contributing to his anemia and his current state of ill health. He was taken to the OR for hemorrhoidectomy. Large amount of stool in the OR prolonged the length of the case. Hemorrhoid is now closed, will check hemoglobin now and in the AM. I have placed this patient on scheduled Miralax. He needs to have soft and frequent stools to avoid any pressure on the repair. (3) A-fib: Impression: with RVR. was off diltiazem gtt from 0300 until about 1900, but has required that again, as heart rate is creeping up. has been loaded on digoxin. I have restarted the diltiazem gtt. titrate to heart rate of <100, and OK for MAP as low as 60. (4) [id number] kidney injury: Impression: looks to be back to baseline. I will continue to check daily BMP Laboratory Tests 07/19/24 07/20/24 07/21/24 17:39 05:20 05:05 Creatinine 2.0 H 1.8 H 1.8 H 07/22/24 07/23/24 07/24/24 05:12 04:30 04:32 Creatinine 1.7 H 1.6 H 1.5 H (5) Systolic heart failure: Impression: LVEF 41% as of 04/02/2022. Not in acute exacerbation. 07/23/2024: Ordered repeat echo per aircraft mechanic armament recommendation. This will be completed on 07/25 due to tech availability (6) Diabetes: Impression: Diabetes is listed in his history, but his home med list does not show any antidiabetic agents. A1c 6.6. Glucose has been well-controlled without any insulin. Given his age and health status, A1C 8% acceptable. Would recommend carb restricted diet at home. (7) Acute myeloid leukemia with myelodysplasia-related changes: Impression: Follows Dr. Romero outpatient I will repeat CBC in the AM to monitor. Chemical DVT prophylaxis has been held. Blood transfusion as above- irradiated RBCs. Platelets low. 07/22/24 07/23/24 07/24/24 05:12 04:30 04:32 Plt Count 61 L 73 L 51 L I have spent 55 minutes in the care of this patient today. This includes time [id number], review and ordering of diagnostic imaging and laboratory studies and consultation with other providers. Monitoring the patient's signs symptoms, evaluation of medication effectiveness and patient's response to treatment.
[2024-07-24] MEDS ORDERED: LIDOCAINE 1%-EPI 1:100000 20 ML MDV ONE (14:40)
[2024-07-24] MEDS ORDERED: BUPIVACAINE 0.25% PF 10 ML VIAL ONE (14:40)
--- NOTE | 2024-07-24 15:15 | CONSULTATION NOTE ---
History of Present Illness History of Present Illness HPI Comment/Other: 73yoM admitted to hospitalist service on 07/19 for rectal bleeding with acute anemia (hgb 6.1) requiring transfusion. He got 1U PRBC on admission and required a 2nd unit PRBC the following night, after which his bleeding stabilized. Subsequently, he went into RVR and required transfer to ICU for stabilization and rate control, which has now been achieved. Unfortunately this morning he began having BRBPR again with drop in hgb, which has continued throughout the day and he is now getting his 3rd unit of PRBC this admission. Nurse reports 50cc of BRB with last BM. 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 At that time he was having severe anorectal pain, particularly with BMs, but no rectal bleeding. Today he reports that he is no longer applying either topical medication, and those symptoms have resolved. He has not had rectal pain in a long time, nor is he having any rectal pain this admission/today. He is not sure when the bleeding started, but corroborative history suggests that the rectal bleeding started just before this admission. He is currently off of his home Eliquis. Denies abdominal pain, n/v. CTA completed on day of admission with no active bleed seen (sigmoid diverticulosis present without bleeding or diverticulitis). Note that since last outpatient visit, he did have his stage 2 renal carcinoma treated with radiation at . 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) Pancytopenia (Acute 04/27/23) Atrial fibrillation and flutter (Acute 11/17/22) 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) Iron overload due to repeated red blood cell transfusions (Acute) Sarcopenia (Acute) Hydroureter on left (Acute) Thrombocytopenia (Acute) Paroxysmal atrial fibrillation (Acute) Chronic kidney disease, stage 3 (Acute) Danitza's granulomatosis (Acute) Bone marrow transplant status (Acute) Acute blood loss anemia (Acute) GERD (gastroesophageal reflux disease) (Acute) Pulmonary hemorrhage (Acute) Anticoagulant long-term use (Acute) Acute urinary retention (Acute) Lower abdominal pain (Acute) UTI (urinary tract infection) (Acute) Clostridium difficile colitis (Acute) Hypotension (Acute) Acute kidney injury (Acute) History of DVT in adulthood (Acute) Hypokalemia (Acute) Diastolic heart failure (Acute) Chronic kidney disease (Acute) Anemia (Acute) Hemorrhagic cystitis (Acute) Gross hematuria (Acute) Diabetes (Acute) Pancytopenia (Acute) Medical History Medical History (Updated 07/24/24 @ 15:11 by Diana Fraga DO) Anal fissure Sigmoid diverticulitis Hemorrhoid Hematuria Mass of right testicle (01/20/23) Severe muscle deconditioning (08/19/22) Sepsis following a procedure, sequela (08/22/22) Cachexia (08/22/22) BPH with lower urinary tract symptoms without urinary obstruction (04/27/23) Antineoplastic chemotherapy induced pancytopenia (08/22/22) Septic shock Surgical History Surgical History Bone marrow replaced by transplant (08/22/22) H/O left knee surgery H/O stem cell transplant H/O knee surgery Family History Family History Mother High blood pressure Alcoholism Heart attack Father Asthma Heart attack Social History Social History Smoking Status: Never smoker Do you dip or chew tobacco?: No Do you vape?: No Patient requests smoking cessation consult: No Initiate information on smoking cessation: No Living arrangement: At home Marital Status: Living Condition: Alone, With spouse/s.o. and Other (has close friend from [place] who can come help him ) Relationship: Level: Assisted Do you feel safe in your home environment?: Yes Suffered physical, verbal, emotional, or financial abuse?: No History of Abuse: No ETOH Use: None Substance Use: denies use Are you sexually active?: No POLST Patient has POLST: No Meds/Allgy Home Medications Ambulatory Orders Medication Instructions Recorded Confirmed ofloxacin 0.3 % eye drops 1 drp LEFTEYE QPM 09/19/23 0 07/19/24 prednisolone acetate 1 % eye 1 drp LEFTEYE DAILY 09/1807/19/24 drops,suspension Temporary Disabled Placard 01/18/24 06/27/24 atorvastatin 80 mg tablet 80 mg PO QDAY #90 tabs 01/1707/19/24 pantoprazole 40 mg tablet,delayed 40 mg PO DAILY #90 t abs 01/18/24 07/19/24 release prednisone 5 mg tablet 5 mg PO QDAY #90 tabs 07/19/24 carboxymethylcellulose sodium 0.5 1 drp ophthalmic (ey e) BID 06/02/24 07/20/24 % eye drops melatonin 1 mg tablet 1 mg PO HS PRN sleep 5 07/20/24 white petrolatum-mineral oil 94 1 applic ophthalmic (e ye) BID 06/02/24 07/20/24 %-3 % eye ointment (Systane Nighttime) amiodarone 200 mg tablet 200 mg PO DAILY 90 days #90 tabs 06/03/24 07/19/24 magnesium glycinate 665 mg PO QPM 07/11/2407/20 mecobalamin (vitamin B12) 5,000 5,000 mcg PO QDAY 04/0607/19/24 mcg chewable tablet zinc sulfate 50 mg zinc (220 mg) 50 mg PO QDAY 5 07/19/24 capsule (Orazinc) fluticasone propionate 50 2 spray inhalation BID #16 g tanner 07/17/24 07/19/24 mcg/actuation nasal spray,suspension mirtazapine 15 mg tablet 15 mg PO QPM 07/19/24 Lactobacillus acidophilus 10 10,000 mmu cells PO DAILY 07/20/24 07/20/24 billion cell capsule (Probacap) tamsulosin 0.4 mg capsule 0.4 mg PO QPM 07/20/2407/20 Allergies Allergies Allergy/AdvReac Type Severity Reaction Status Date / Time No Known Drug Allergies Allergy Verified 07/19/24 17:22 Results Lab Results Lab results reviewed: Yes 07/24/24 10:00 07/24/24 04:32 Other Lab Results: Lab Results x24hrs 07/24/24 07/24/24 07/24/24 Range/Units 11:28 10:00 04:32 WBC (4.8-10.8) x10^3/uL RBC (4.70-6.10) 10^6/uL Hgb 7.9 L (14.0-18.0) g/dL Hct 24.4 L (42.0-52.0) % MCV (80.0-94.0) fL MCH (27.0-31.0) pg MCHC (32.0-36.0) g/dL RDW (12.0-15.0) % Plt Count (130-450) 10^3/uL MPV (7.4-11.4) fL Neut # (Auto) (1.5-6.6) 10^3/uL Lymph # (Auto) (1.5-3.5) 10^3/uL Titus # (Auto) (0.0-1.0) 10^3/uL Eos # (Auto) (0.0-0.7) 10^3/uL Baso # (Auto) (0.0-0.1) 10^3/uL Absolute Nucleated RBC x10^3/uL Nucleated RBC % /100WBC Platelet Estimate (NORMAL) RBC Morph Micro Appear 1+ ACANTHOCYTES (NORMAL) Sodium 135 (135-145) mmol/L Potassium 3.9 (3.5-4.5) mmol/L Chloride 108 (101-111) mmol/L Carbon Dioxide 23 (21-32) mmol/L Anion Gap 4.0 L (6-13) BUN 15 (6-20) mg/dL Creatinine 1.5 H (0.6-1.3) mg/dL Estimated GFR (MDRD) 46 L (>89) Glucose 106 H (74-104) mg/dL Calcium 6.9 L (8.5-10.3) mg/dL Blood Type AB POSITIVE Antibody Screen NEGATIVE Crossmatch IS Only See Detail 07/24/24 07/24/24 Range/Units 04:32 04:32 WBC 4.6 L (4.8-10.8) x10^3/uL RBC 2.43 L (4.70-6.10) 10^6/uL Hgb 7.8 L (14.0-18.0) g/dL Hct 24.4 L (42.0-52.0) % MCV 100.4 H (80.0-94.0) fL MCH 32.1 H (27.0-31.0) pg MCHC 32.0 (32.0-36.0) g/dL RDW 21.4 H (12.0-15.0) % Plt Count 51 L (130-450) 10^3/uL MPV 10.0 (7.4-11.4) fL Neut # (Auto) 3.8 (1.5-6.6) 10^3/uL Lymph # (Auto) 0.3 L (1.5-3.5) 10^3/uL Titus # (Auto) 0.4 (0.0-1.0) 10^3/uL Eos # (Auto) 0.1 (0.0-0.7) 10^3/uL Baso # (Auto) 0.0 (0.0-0.1) 10^3/uL Absolute Nucleated RBC 0.00 x10^3/uL Nucleated RBC % 0.0 /100WBC Platelet Estimate DECREASED (<130,000) (NORMAL) RBC Morph Micro Appear 1+ OVALOCYTES 1+ ANISOCYTOSIS (NORMAL) Sodium (135-145) mmol/L Potassium (3.5-4.5) mmol/L Chloride (101-111) mmol/L Carbon Dioxide (21-32) mmol/L Anion Gap (6-13) BUN (6-20) mg/dL Creatinine (0.6-1.3) mg/dL Estimated GFR (MDRD) (>89) Glucose (74-104) mg/dL Calcium (8.5-10.3) mg/dL Blood Type Antibody Screen Crossmatch IS Only Exam Exam Vital Signs: Vital Signs x48h Temp Pulse Resp BP Pulse Ox 07/24/24 14:00 80 20 96/56 L 95 07/24/24 14:00 77 16 96/56 L 96 07/24/24 13:48 36.8 C 86 13 100/54 L 96 07/24/24 13:31 37.1 C 89 14 92/58 L 96 07/24/24 13:00 86 11 L 102/50 L 96 07/24/24 12:00 37.0 C 07/24/24 12:00 85 18 97/53 L 95 07/24/24 11:00 85 14 102/50 L 94 07/24/24 09:50 81 15 85/50 L 97 07/24/24 08:56 85 18 96/58 L 95 07/24/24 08:00 36.8 C 82 16 100/56 L 96 07/24/24 07:00 84 13 91/53 L 97 Constitutional no apparent distress Respiratory normal respiratory effort Cardiovascular normal heart rate noted Gastrointestinal abdomen normal to inspection Rectal exam with scattered areas of anal warts on the anoderm, decreased from prior outpatient visits. Multiple external hemorrhoids/skin tags. No anal fissure appreciated with external exam or anoscopy. There is fresh blood on the anoderm. There is blood on the glove with VIVIEN but not a large volume of blood within the vault. Anoscopy: Significant pain with anoscopy. Active bleeding from right sided hemorrhoid column. No blood in rectal vault proximal to hemorrhoids. Psychiatry oriented x3 Skin skin color abnormal (less pale than last visit ) (pale) Image 07/19/2024 PROCEDURE: CT Angio Abdomen/Pelvis INDICATIONS: LGi bleed CONTRAST: 100 mL Omnipaque 300 TECHNIQUE: After the administration of intravenous contrast, 2.5 mm thick sections acquired from the diaphragm to the symphysis. 10 mm maximum-intensity projection (MIP) reformats were then acquired. For radiation dose reduction, the following was used: automated exposure control, adjustment of mA and/or kV according to patient size. COMPARISON: CT abdomen/pelvis 03/22/2024 FINDINGS: Image quality: Excellent. VESSELS: Aorta: Mild aortic atherosclerotic calcifications. No aortic aneurysm. Possible small focal dissection flap at the infrarenal abdominal aorta just lateral to the CHARLENE origin (), which does not appear significantly changed compared to the CT from 03/22/2024 and prior exams dating back to 2021, but is better evaluated on the current exam from. Mesenteric arteries: Celiac trunk, superior and inferior mesenteric arteries appear patent. Renal arteries and accessory renal arteries are patent bilaterally. Pelvic arteries: Mild atherosclerotic calcifications in the common, internal, and external iliac arteries bilaterally without significant stenosis. Mild atherosclerotic calcifications in the included femoral systems CHEST: Lung bases and heart: Mild atelectasis at the left lung base. Electronic device is seen in the left lateral chest with associated metal streak artifact. Small pericardial effusion. ABDOMEN: Liver: No solid mass. Hyperdense appearance of liver on noncontrast sequence. Gallbladder and biliary tree: Small calcified gallstones are present without acute inflammatory changes. Spleen: No splenomegaly. Stable small benign-appearing hypodense lesion at the superior spleen. Pancreas: No pancreatic ductal dilation. Adrenals: No adrenal nodule. Kidneys and ureters: Postsurgical changes are seen with clips of the interpolar region of the left kidney. Heterogeneous attenuation of the central left kidney compatible with previously seen renal mass and postradiation changes. There is mild perinephric fat stranding. Fat stranding is also seen adjacent to the renal pelvis and proximal ureter with no injury. Thickening. Mild left hydroureter without an obstructing lesion. There is also mild right hydronephrosis and hydroureter without an obstructing calculus or mass. Bowel and peritoneum: Multiple diverticula in the colon with fat signs of acute diverticulitis. No extravasation of intravenous contrast material into the bowel lumen. Normal appendix. Small bowel loops and stomach are unremarkable. Lymph nodes: No central or retroperitoneal adenopathy. PELVIS Reproductive organs: Unremarkable. Bladder: Focal bladder wall thickening at the right lateral bladder wall measuring up to 6 mm in thickness. Pelvic lymph nodes: No pelvic adenopathy by size criteria. Bones: No aggressive osseous abnormality. Other: No significant ventral or inguinal hernia. IMPRESSION: 1.No extravasation of contrast material is seen into the bowel lumen. 2.Colonic diverticulosis without signs of acute diverticulitis. 3.Possible small chronic dissection flap at the infrarenal abdominal aorta that does not appear significantly changed when compared to prior nonangiographic exams. No signs of acute aortic syndrome or aortic aneurysm. 4.Heterogeneous attenuation of the left kidney with surrounding fat stranding likely related to posttreatment changes from patient's known renal mass. No significant lymphadenopathy. 5.Mild bilateral hydroureter and mild to moderate hydronephrosis without an obstructing calculus or mass is seen. 6.Focal right lateral bladder wall thickening. Bladder malignancy is not excluded and correlation with cystoscopy is recommended. 7.Hyperdense appearance of the liver on noncontrast CT, which can be seen in the setting of amiodarone therapy or deposition diseases such as hemachromatosis. Recommend clinical correlation. Reviewed by: Aditya Rushing MD on 07/19/2024 7:19 PM PDT Conclusion/Plan Problem List (1) Internal and external bleeding hemorrhoids: Plan: 73yoM with acute blood loss anemia due to bleeding hemorrhoids, requiring now 3rd unit of PRBC this admission. Admission for both rectal bleeding/acute anemia as well as RVR with hemodynamic instability (now resolved). Bedside anoscopy demonstrated active bleeding from right hemorrhoidal column. Poorly tolerated bedside exam due to pain, and thus do not recommend bedside attempt at banding for intervention. Recommend rectal exam under anesthesia with control of hemorrhoidal bleeding, likely hemorrhoidectomy. He has had partial response to outpatient topical therapy of his anal condylomata, however there is some residual burden on anal exam. While in the OR will do limited surgical resection of residual disease. - NPO now for OR this afternoon - consented for rectal exam under anesthesia with control of rectal bleeding. Diana Fraga DO, FACS General Surgeon, [facility] (2) Acute blood loss anemia: (3) Condyloma acuminatum of anus: Lab Results Lab results reviewed: Yes 07/24/24 10:00 07/24/24 04:32
--- NOTE | 2024-07-24 16:23 | ANESTHESIA PROCEDURE NOTE ---
Pre-Anesthesia VS, & Labs Diagnosis Surgical Diagnosis:: rectal bleeding Procedure Procedure: control of hemhorrhoidal bleeding Vitals Vital Signs: Temp Pulse Resp BP Pulse Ox O2 Flow Rate 36.8 C 78 16 95/54 L 97 2 07/24/24 16:00 07/24/24 16:00 07/24/24 16:00 07/24/24 16:00 07/24/24 16:00 07/23/24 12:00 Height (in): 5 ft 8 in Weight (kg): 67 kg Body Mass Index: 22.4 BMI Classification: Normal NPO Last Food Intake: 4 oz ensure about 1230 Lab Results Current Lab Results: Laboratory Tests 07/24/24 11:28: Blood Type AB POSITIVE, Antibody Screen NEGATIVE, Crossmatch IS Only See Detail 07/24/24 10:00: Hgb 7.9 L, Hct 24.4 L 07/24/24 04:32: RBC Morph Micro Appear 1+ ACANTHOCYTES, Sodium 135, Potassium 3.9, Chloride 108, Carbon Dioxide 23, Anion Gap 4.0 L, BUN 15, Creatinine 1.5 H, Estimated GFR (MDRD) 46 L, Glucose 106 H, Calcium 6.9 L 07/24/24 04:32: RBC Morph Micro Appear 1+ OVALOCYTES 07/24/24 04:32: WBC 4.6 L, RBC 2.43 L, Hgb 7.8 L, Hct 24.4 L, MCV 100.4 H, MCH 32.1 H, MCHC 32.0, RDW 21.4 H, Plt Count 51 L, MPV 10.0, Neut # (Auto) 3.8, L ymph # (Auto) 0.3 L, Hood # (Auto) 0.4, Eos # (Auto) 0.1, Baso # (Auto) 0.0, Absolute Nucleated RBC 0.00, Nucleated RBC % 0.0, Platelet Estimate DECREASED (<130,000), RBC Morph Micro Appear 1+ ANISOCYTOSIS 07/23/24 04:30: RBC Morph Micro Appear 1+ OVALOCYTES, Sodium 136, Potassium 4.2, Chloride 106, Carbon Dioxide 24, Anion Gap 6.0, BUN 18, Creatinine 1.6 H, E stimated GFR (MDRD) 43 L, Glucose 100, Calcium 7.7 L 07/23/24 04:30: RBC Morph Micro Appear 2+ ACANTHOCYTES 07/23/24 04:30: WBC 5.7, RBC 2.77 L, Hgb 9.0 L, Hct 27.6 L, MCV 99.6 H, MCH 32.5 H, MCHC 32.6, RDW 21.8 H, Plt Count 73 L, MPV 10.0, Neut # (Auto) 4.5, Lymph # (Auto) 0.6 L, Hood # (Auto) 0.5, Eos # (Auto) 0.1, Baso # (Auto) 0.0, Absolute Nucleated RBC 0.00, Nucleated RBC % 0.0, Platelet Estimate DECREASED (<130,000), RBC Morph Micro Appear 2+ ANISOCYTOSIS 07/22/24 21:25: Hgb 8.2 L, Hct 25.1 L 07/22/24 14:48: Troponin I High Sens 11.4 07/22/24 13:35: Hgb 8.9 L, Hct 26.6 L 07/22/24 12:58: Troponin I High Sens 14.2 07/22/24 05:32: Phosphorus 2.1 L, Magnesium 1.7 07/22/24 05:12: RBC Morph Micro Appear 1+ ACANTHOCYTES, Sodium 137, Potassium 3.9, Chloride 107, Carbon Dioxide 23, Anion Gap 7.0, BUN 20, Creatinine 1.7 H, E stimated GFR (MDRD) 40 L, Glucose 100, Calcium 7.8 L 07/22/24 05:12: RBC Morph Micro Appear 1+ OVALOCYTES 07/22/24 05:12: WBC 5.5, RBC 2.88 L, Hgb 9.1 L, Hct 28.0 L, MCV 97.2 H, MCH 31.6 H, MCHC 32.5, RDW 22.1 H, Plt Count 61 L, MPV 9.7, Neut # (Auto) 4.4, Lymph # (Auto) 0.5 L, Hood # (Auto) 0.5, Eos # (Auto) 0.1, Baso # (Auto) 0.0, Absolute Nucleated RBC 0.00, Nucleated RBC % 0.0, Manual Slide Review Indicated, WBC Morphology NORMAL APPEARANCE, Platelet Estimate DECREASED (<130,000), Platelet Morphology NORMAL APPEARANCE, RBC Morph Micro Appear 2+ ANISOCYTOSIS 07/21/24 21:38: Hgb 8.6 L, Hct 25.9 L 07/21/24 13:40: Hgb 8.8 L, Hct 26.8 L 07/21/24 05:05: RBC Morph Micro Appear 1+ OVALOCYTES, Sodium 136, Potassium 4.3, Chloride 108, Carbon Dioxide 23, Anion Gap 5.0 L, BUN 22 H, Creatinine 1.8 H, E stimated GFR (MDRD) 37 L, Glucose 112 H, Estimat Average Glucose 143 H, H emoglobin A1c % 6.6 H, Calcium 7.9 L 07/21/24 05:05: WBC 4.9, RBC 2.64 L, Hgb 8.4 L, Hct 25.9 L, MCV 98.1 H, MCH 31.8 H, MCHC 32.4, RDW 22.1 H, Plt Count 62 L, MPV 9.8, Neut # (Auto) 4.1, Lymph # (Auto) 0.4 L, Hood # (Auto) 0.4, Eos # (Auto) 0.0, Baso # (Auto) 0.0, Absolute Nucleated RBC 0.00, Nucleated RBC % 0.0, Manual Slide Review Indicated, WBC Morphology NORMAL APPEARANCE, Platelet Estimate DECREASED (<130,000), Platelet Morphology NORMAL APPEARANCE, RBC Morph Micro Appear 2+ ANISOCYTOSIS 07/20/24 21:17: Hgb 7.0 L*, Hct 21.7 L 07/20/24 13:40: Hgb 7.5 L, Hct 23.5 L 07/20/24 05:20: RBC Morph Micro Appear 1+ ACANTHOCYTES, Sodium 136, Potassium 4.2, Chloride 107, Carbon Dioxide 23, Anion Gap 6.0, BUN 24 H, Creatinine 1.8 H, Estimated GFR (MDRD) 37 L, Glucose 86, Calcium 7.7 L, Magnesium 1.9, Total Bilirubin 1.0, AST 9 L, ALT 12, Alkaline Phosphatase 73, Total Protein 4.9 L, A lbumin 2.8 L, Globulin 2.1, Albumin/Globulin Ratio 1.3 07/20/24 05:20: RBC Morph Micro Appear 1+ OVALOCYTES 07/20/24 05:20: RBC Morph Micro Appear 1+ ANISOCYTOSIS 07/20/24 05:20: WBC 4.3 L, RBC 2.35 L, Hgb 7.6 L, Hct 23.9 L, MCV 101.7 H, MCH 32.3 H, MCHC 31.8 L, RDW 22.9 H, Plt Count 67 L, MPV 9.9, Neut # (Auto) 3.5, L ymph # (Auto) 0.3 L, Hood # (Auto) 0.4, Eos # (Auto) 0.0, Baso # (Auto) 0.0, Absolute Nucleated RBC 0.00, Nucleated RBC % 0.0, Manual Slide Review Indicated, WBC Morphology NORMAL APPEARANCE, Platelet Estimate DECREASED (<130,000), Platelet Morphology NORMAL APPEARANCE, RBC Morph Micro Appear 1+ POIKILOCYTOSIS 07/19/24 21:35: Hgb 6.3 L*, Hct 20.1 L 07/19/24 19:40: Hgb 6.1 L*, Hct 19.2 L* 07/19/24 17:39: RBC Morph Micro Appear 2+ POIKILOCYTOSIS, PT 13.2 H, INR 1.2, V BG pH 7.496 H, VBG pCO2 28.0 L, VBG pO2 40.0, VBG HCO3 21.8 L, VBG Total CO2 22.7 L, VBG O2 Saturation 65.0, VBG Base Excess -1.6, Sodium 134 L, Potassium 3.9, Chloride 103, Carbon Dioxide 23, Anion Gap 8.0, BUN 29 H, Creatinine 2.0 H, Estimated GFR (MDRD) 33 L, Glucose 111 H, Lactic Acid 1.9, Calcium 8.2 L, Total Bilirubin 0.8, AST 11, ALT 15, Alkaline Phosphatase 82, Total Protein 5.6 L, A lbumin 3.1 L, Globulin 2.5, Albumin/Globulin Ratio 1.2, Blood Type AB POSITIVE, Antibody Screen NEGATIVE, Crossmatch IS Only See Detail 07/19/24 17:39: RBC Morph Micro Appear 1+ HYPOCHROMASIA 07/19/24 17:39: WBC 5.1, RBC 2.29 L, Hgb 7.5 L, Hct 23.9 L, MCV 104.4 H, MCH 32.8 H, MCHC 31.4 L, RDW 23.5 H, Plt Count 73 L, MPV 9.8, Neut # (Auto) 4.4, L ymph # (Auto) 0.2 L, Hood # (Auto) 0.5, Eos # (Auto) 0.0, Baso # (Auto) 0.0, Absolute Nucleated RBC 0.00, Nucleated RBC % 0.0, Platelet Estimate DECREASED (<130,000), Platelet Morphology n, RBC Morph Micro Appear 2+ ANISOCYTOSIS Lab results reviewed: Yes 07/24/24 10:00 07/24/24 04:32 Meds/Allgy Home Medications Ambulatory Orders Medication Instructions Recorded Confirmed ofloxacin 0.3 % eye drops 1 drp LEFTEYE QPM 09/19/23 0 07/19/24 prednisolone acetate 1 % eye 1 drp LEFTEYE DAILY 09/1807/19/24 drops,suspension Temporary Disabled Placard 01/18/24 06/27/24 atorvastatin 80 mg tablet 80 mg PO QDAY #90 tabs 01/1707/19/24 pantoprazole 40 mg tablet,delayed 40 mg PO DAILY #90 t abs 01/18/24 07/19/24 release prednisone 5 mg tablet 5 mg PO QDAY #90 tabs 07/19/24 carboxymethylcellulose sodium 0.5 1 drp ophthalmic (ey e) BID 06/02/24 07/20/24 % eye drops melatonin 1 mg tablet 1 mg PO HS PRN sleep 5 07/20/24 white petrolatum-mineral oil 94 1 applic ophthalmic (e ye) BID 06/02/24 07/20/24 %-3 % eye ointment (Systane Nighttime) amiodarone 200 mg tablet 200 mg PO DAILY 90 days #90 tabs 06/03/24 07/19/24 magnesium glycinate 665 mg PO QPM 07/11/2407/20 mecobalamin (vitamin B12) 5,000 5,000 mcg PO QDAY 04/0607/19/24 mcg chewable tablet zinc sulfate 50 mg zinc (220 mg) 50 mg PO QDAY 5 07/19/24 capsule (Orazinc) fluticasone propionate 50 2 spray inhalation BID #16 g tanner 07/17/24 07/19/24 mcg/actuation nasal spray,suspension mirtazapine 15 mg tablet 15 mg PO QPM 07/19/24 Lactobacillus acidophilus 10 10,000 mmu cells PO DAILY 07/20/24 07/20/24 billion cell capsule (Probacap) tamsulosin 0.4 mg capsule 0.4 mg PO QPM 07/20/2407/20 Allergies Allergies Allergy/AdvReac Type Severity Reaction Status Date / Time No Known Drug Allergies Allergy Verified 07/19/24 17:22 [facility] Active Problems All Active Problems Internal and external bleeding hemorrhoids (Acute) Rectal bleeding (Acute) Cancer of left renal pelvis (Acute) Left renal mass (Acute) Weakness (Acute) Dehydration (Acute) Renal cancer (Acute) Muscle weakness (Acute) 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) Condyloma acuminatum of anus (Acute) History of implantable cardioverter-defibrillator (ICD) placement (Acute) Cardiac arrest with ventricular fibrillation (Acute) 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) Pancytopenia (Acute 04/27/23) Atrial fibrillation and flutter (Acute 11/17/22) Iron overload due to repeated red blood cell transfusions (Acute) Sarcopenia (Acute) Hydroureter on left (Acute) Thrombocytopenia (Acute) Paroxysmal atrial fibrillation (Acute) Chronic kidney disease, stage 3 (Acute) Danitza's granulomatosis (Acute) Bone marrow transplant status (Acute) Acute blood loss anemia (Acute) GERD (gastroesophageal reflux disease) (Acute) Pulmonary hemorrhage (Acute) Anticoagulant long-term use (Acute) Acute urinary retention (Acute) Lower abdominal pain (Acute) UTI (urinary tract infection) (Acute) Clostridium difficile colitis (Acute) Pancytopenia (Acute) Hemorrhagic cystitis (Acute) Diabetes (Acute) Gross hematuria (Acute) Anemia (Acute) Chronic kidney disease (Acute) Diastolic heart failure (Acute) Hypokalemia (Acute) History of DVT in adulthood (Acute) Acute kidney injury (Acute) Hypotension (Acute) Medical History Medical History Anal fissure Sigmoid diverticulitis Hemorrhoid Hematuria Mass of right testicle (01/20/23) Severe muscle deconditioning (08/19/22) Sepsis following a procedure, sequela (08/22/22) Cachexia (08/22/22) BPH with lower urinary tract symptoms without urinary obstruction (04/27/23) Antineoplastic chemotherapy induced pancytopenia (08/22/22) Septic shock Surgical History Surgical History Bone marrow replaced by transplant (08/22/22) H/O left knee surgery H/O stem cell transplant H/O knee surgery Family History Family History Mother High blood pressure Alcoholism Heart attack Father Asthma Heart attack Social History Social History Smoking Status: Never smoker Do you dip or chew tobacco?: No Do you vape?: No Patient requests smoking cessation consult: No Initiate information on smoking cessation: No Living arrangement: At home Marital Status: Living Condition: Alone, With spouse/s.o. 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) Exam Exam Vital Signs: Vital Signs x48h Temp Pulse Resp BP Pulse Ox 07/24/24 16:00 36.8 C 78 16 95/54 L 97 07/24/24 15:42 36.9 C 77 15 95/63 96 07/24/24 15:00 84 18 100/52 L 95 07/24/24 15:00 83 18 100/52 L 96 07/24/24 14:00 80 20 96/56 L 95 07/24/24 14:00 77 16 96/56 L 96 07/24/24 13:48 36.8 C 86 13 100/54 L 96 07/24/24 13:31 37.1 C 89 14 92/58 L 96 07/24/24 13:00 86 11 L 102/50 L 96 07/24/24 12:00 37.0 C 07/24/24 12:00 85 18 97/53 L 95 07/24/24 11:00 85 14 102/50 L 94 07/24/24 09:50 81 15 85/50 L 97 07/24/24 08:56 85 18 96/58 L 95 Plan Problem List (1) Acute blood loss anemia: (2) Condyloma acuminatum of anus: Plan Anesthesia Type: General Consent for Procedure(s) Verified and Reviewed: Yes Code Status: Attempt Resuscitation ASA Classification ASA classification: 4-Incapacitating disease Is this case an emergency?: Yes
[2024-07-24] MEDS ORDERED: fentaNYL 100 MCG/2 ML VIAL ONE ×3 (16:31→18:24)
[2024-07-24] MEDS ORDERED: LIDOCAINE-PF 2% 10 ML AMP SUBQ ONE (16:31)
[2024-07-24] MEDS ORDERED: PHENYLEPHRINE HCL 0.5 MG/5 ML AMPULE ONE (17:07)
[2024-07-24] MEDS ORDERED: VASOPRESSIN 20 UNIT/ML VIAL ONE (17:22)
[2024-07-24] MEDS ORDERED: ePHEDrine 50 MG/ML VIAL IVP ONE (18:03)
[2024-07-24] MEDS: ACETAMINOPHEN 500 MG TABLET PO SCH (19:37)
[2024-07-24] MEDS: ACETAMINOPHEN 1,000 MG/100 ML 1,000 MG/100 ML BAG IV SCH (19:56)
--- NOTE | 2024-07-24 20:09 | ANESTHESIA POST OP EVALUATION ---
Anesthesia Post Eval Post Anesthesia Eval Vitals: Last Vital Signs Temp 36.2 C L 07/24/24 19:00 Pulse 116 H 07/24/24 19:06 Resp 19 07/24/24 19:06 BP 101/59 L 07/24/24 19:06 Pulse Ox 94 07/24/24 19:06 O2 Flow Rate 10 07/24/24 19:06 CV Function Including HR & BP: Stable Pain Control: Satisfactory Nausea & Vomiting: Negative Mental Status: Baseline Respiratory Status: Airway Patent Hydration Status: Satisfactory Anesthesia Complications: None
[2024-07-24] MEDS: diltiaZEM INJ 125 MG in DEXTROSE 5% 100 ML IV SCH (20:21)
[2024-07-24] MEDS: MIRTAZAPINE 15 MG TABLET PO SCH (20:32)
--- NOTE | 2024-07-24 20:42 | OPERATIVE REPORT ---
Operative Report General Admit Date: 07/20/24 Procedure Data: Operation Date: 07/24/24 15:00 Proposed Procedures p EUA, CONTROL OF HEMORRHOIDAL BLEEDING(Not Applicable) - Diana Fraga, Actual Procedures p EUA, CONTROL OF HEMORRHOIDAL BLEEDING, HEMORRHOIDECTOMY(Not Applicable) - Diana Fraga, Excision of anal condylomata. Anesthesia Type General Case Staff Anesthesia Provider: Yonatan Cohen Case Times Procedure Start: 07/24/24 17:15 Procedure End: 07/24/24 18:49 Time out: 07/24/24 17:15 Pre-Op Diagnosis: bleeding hemorrhoids Post Op Diagnosis: Bleeding internal and external hemorrhoids Procedure Note Estimated Blood Loss (ml): 20 Pathology: 1) right posterior hemorrhoid 2) right anterior hemorrhoid Indications: 73yoM with acute blood loss anemia requiring 3U PRBC from bleeding hemorrhoids Findings: bleeding internal and external hemorrhoids, large right column (encompassing anterior and posterior bundle), small left lateral column Complications: none Other Other Information/Narrative: Patient was brought to the operating room placed supine on the operating room table. General anesthesia was induced by the [employer]SET PLATE [employer]ER. The patient was positioned in high lithotomy position using the candycane stirrups. No antibiotics were administered. Final timeout was performed with all members the team being in agreement. External exam of the perianal skin revealed circumferential large external hemorrhoids with fresh blood on the surface. VIVIEN demonstrated a patulous sphincter with fresh blood. Rectal exam with a bivalve speculum revealed large internal hemorrhoids circumstantially with active bleeding. The large hemorrhoidal complex on the right side was addressed first. The Neris-Eaton anal speculum was inserted. The complex encompassed both the right anterior and right posterior hemorrhoidal columns, with internal and external component. The internal component produced the majority of the active bleeding. A 2-0 chromic suture was anchored at the proximal portion of each of the two columns; ligating the vasculature. The complex was then excised by sharply dividing the anoderm and mucosa, followed by elevating the hemorrhoidal tissue off of the underlying sphincter muscle using the miniature LigaSure device. The mucosa was then closed with 2-0 chromic suture in running fashion leaving the left half centimeter of mucosa open to allow for drainage. Due to the patulous nature of the sphincter muscle and redundant anorectal mucosa, the defect came together without tension or narrowing of the lumen. The suture line was hemostacic. Overlying the external component of the right hemorrhoidal complex was a small patch of anal condyloma; this was excised along with the hemorrhoid. The Neris-Eaton anal speculum was removed, and the rectum re-examined with the bivalve speculum. Bleeding from the much-smaller left lateral hemorrhoidal column was observed. The Neris-Eaton anal speculum was again inserted. A 2-0 chromic suture was anchored at the proximal portion of the left lateral column; ligating the vasculature. The column was then excised by sharply dividing the anoderm and mucosa, followed by elevating the hemorrhoidal tissue off of the underlying sphincter muscle using the miniature LigaSure device. The mucosa was then closed with 2-0 chromic suture in running fashion leaving the left half centimeter of mucosa open to allow for drainage. Again, due to the patulous nature of the sphincter muscle and redundant anorectal mucosa, the defect came together without tension or narrowing of the lumen. The suture line was hemostatic. The rectum and the wounds were irrigated with normal saline. 40 cc of local anesthetic was injected as a perianal block. Dry gauze dressing was placed. The patient was repositioned supine and awoken from general anesthesia. He tolerated the procedure well and was taken back to the ICU in good condition. All sponge and needle counts were correct. Diana Fraga DO, [facility] General Surgeon, Vivian
[2024-07-24] MEDS: HYDROmorphone 0.5 MG/0.5 ML SYRINGE IVP PRN (21:21)
[2024-07-25 04:34] LABS: BASOPHILS % (AUTO) 0.4 %; EOSINOPHILS # (AUTO) 0.1 10^3/uL (0.0-0.7); EOSINOPHILS % (AUTO) 0.9 %; HCT - HEMATOCRIT 28.3 % (42.0-52.0); HGB - HEMOGLOBIN 9.2 g/dL (14.0-18.0); LYMPHOCYTES # (AUTO) 0.3 10^3/uL (1.5-3.5); LYMPHOCYTES % (AUTO) 4.6 %; MEAN CORPUSCULAR HEMOGLOBIN 31.6 pg (27.0-31.0); MEAN CORPUSCULAR HGB CONC 32.5 g/dL (32.0-36.0); MEAN CORPUSCULAR VOLUME 97.3 fL (80.0-94.0); MEAN PLATELET VOLUME 9.7 fL (7.4-11.4); MONOCYTES # (AUTO) 0.4 10^3/uL (0.0-1.0); MONOCYTES % (AUTO) 6.7 %; NEUTROPHILS # (AUTO) 4.7 10^3/uL (1.5-6.6); NEUTROPHILS % (AUTO) 87.2 %; PLT - PLATELET COUNT 48 10^3/uL (130-450); RED BLOOD COUNT 2.91 10^6/uL (4.70-6.10); RED CELL DISTRIBUTION WIDTH 20.4 % (12.0-15.0); WHITE BLOOD COUNT 5.4 x10^3/uL (4.8-10.8)
[2024-07-25 04:46] LABS: MAGNESIUM 2.1 mg/dL (1.7-2.3)
[2024-07-25 04:52] LABS: CALCIUM 7.4 mg/dL (8.5-10.3); CREATININE 1.4 mg/dL (0.6-1.3)
[2024-07-25] MEDS: polyethylene glycoL 3350 17 GM PACKET PO SCH (08:26)
--- NOTE | 2024-07-25 09:06 | PROVIDER PROGRESS NOTE ---
Subjective General Admit Date: 07/20/24 Procedure Date: 07/24/24 Post Op Days: 1 Procedure Performed: exam under anesthesia, hemorrhoidectomy Exam Exam Vital Signs: Vital Signs x48h Pulse Resp BP BP Pulse Ox 07/25/24 08:00 83 14 111/56 L 95 07/25/24 07:00 80 14 99/51 L 95 07/25/24 06:00 80 12 102/55 L 97 07/25/24 05:00 85 15 84/44 L 94 07/25/24 04:00 95 22 109/76 96 07/25/24 03:00 79 11 L 116/59 L 95 07/25/24 02:00 76 14 98/59 L 96 Gen: NAD, alert and oriented CV: RRR Pulm: non labored, on RA Abd: soft, NT, ND, no r/g Impression/Plan Problem List (1) Acute blood loss anemia: Plan: bleeding hemorrhoids removed, no further bleeding, hgb stable. (2) Internal and external bleeding hemorrhoids: Plan: s/p EUA, complex hemorrhoidectomy, POD#1 - I ordered sitz baths prn and lidocaine ointment - Hgb stable - ok to adat, discharge when medically stable. Recommend discharge with instructions for sitz baths, and Rx for lidocaine ointment. - f/u with Dr. Fraga in surgery clinic in 2-3 weeks. (3) Takny-xu-mjjygia kidney injury: (4) Systolic heart failure: (5) Diabetes: (6) Acute myeloid leukemia with myelodysplasia-related changes: Plan General surgery will sign off. Please call surgeon immigration coordinator with any new question s or concerns.
[2024-07-25] MEDS: LIDOCAINE OINTMENT 5% 35.44 GM TUBE TOP PRN (09:26)
[2024-07-25 09:58] LABS: HCT - HEMATOCRIT 26.3 % (42.0-52.0); HGB - HEMOGLOBIN 8.7 g/dL (14.0-18.0)
--- NOTE | 2024-07-25 16:07 | PROVIDER PROGRESS NOTE ---
Subjective Prog Note Date Prog Note Date: 07/25/24 Subjective Subjective: He is doing well, much better today. He feels better today. He was just out of bed to commode, and passed a small amount of bright red blood, but has not had additional BRBPR. converted to SR overnight. Current Medications Current Medications Current Medications: Current Medications Generic Name Dose Route Start Last Admin Trade Name Freq PRN Reason Stop Dose Admin Acetaminophen 1,000 mg 07/24/24 20:00 07/25/24 13:31 Acetaminophen 500 Mg Tablet PO Not Given Q8H JUJU Atorvastatin Calcium 80 mg 07/20/24 09:00 07/25/24 08:26 Atorvastatin 40 Mg Tablet PO 80 mg DAILY JUJU Administration Carboxymethylcellulose 1 drops 07/20/24 12:00 07/25/24 08:26 Carboxymethylcellulose Ophth Drops LEFTEYE 1 drops BID JUJU Administration Cyanocobalamin 1,000 mcg 07/21/24 09:00 07/25/24 08:26 Cyanocobalamin 500 Mcg Tablet PO 1,000 mcg DAILY JUJU Administration Digoxin 125 mcg 07/24/24 09:00 07/25/24 08:26 Digoxin 125 Mcg Tablet PO 125 mcg DAILY JUJU Administration Fluticasone Propionate 1 sprays 07/20/24 21:00 07/25/24 08:27 Fluticasone Nasal [place] SHENA 1 spr BID JUJU Administration Hydromorphone HCl 0.5 mg 07/24/24 20:39 07/25/24 14:24 Hydromorphone 0.5 Mg/0.5 Ml Syringe IVP 0.5 mg Q2H PRN Administration Severe Pain (Level 7-10) Acetaminophen 1,000 mg in 100 mls @ 400 mls/hr 07/24/24 20:00 07/25/24 14:16 Acetaminophen IV Infused Q8H JUJU Infusion Diltiazem HCl 125 mg/ Dextrose 125 mls @ 5 mls/hr 07/24/24 20:00 07/25/24 04:35 IV 0 mg/hr .Q25H JUJU 0 mls/hr Titration Protocol 5 MG/HR Lactobacillus Rhamnosus 1 cap 07/20/24 12:00 07/25/24 08:26 Lactobacillus Rhamnosus Gg Capsule PO 1 cap DAILY JUJU Administration Lidocaine 1 applic 07/25/24 08:57 07/25/24 09:26 Lidocaine Ointment 5% 35.44 Gm Tube TOP 1 applic QID PRN Administration rectal pain Melatonin 3 mg 07/21/24 00:31 07/23/24 22:59 Melatonin 3 Mg Tablet PO 3 mg QPM PRN Administration sleep Mirtazapine 15 mg 07/24/24 21:00 07/24/24 20:32 Mirtazapine 15 Mg Tablet PO 15 mg QPM JUJU Administration Multi-Ingred Cream/Lotion/Oil/Oint 1 applic 07/20/24 12:00 07/25/24 08:27 Mineral Oil/Petrolat Ophth Oint LEFTEYE 1 drops BID JUJU Administration Ofloxacin 1 drops 07/20/24 21:00 07/24/24 20:25 Ofloxacin 0.3% Ophth Drops LEFTEYE 1 drops QPM JUJU Administration Ondansetron HCl 4 mg 07/19/24 21:13 07/22/24 13:29 Ondansetron Odt 4 Mg Tablet TL 4 mg Q6HR PRN Administration Nausea / Vomiting Ondansetron HCl 4 mg 07/19/24 21:13 07/22/24 14:04 Ondansetron 4 Mg/2 Ml Vial IVP 4 mg Q6HR PRN Administration Nausea / Vomiting Pantoprazole Sodium 40 mg 07/23/24 09:00 07/25/24 06:25 Pantoprazole 40 Mg Tablet PO 40 mg QDAC JUJU Administration Polyethylene Glycol 17 gm 07/25/24 09:00 07/25/24 08:26 Polyethylene Glycol 3350 17 Gm Packet PO 17 gm DAILY JUJU Administration Prednisolone 1 drops 07/20/24 12:00 07/25/24 08:28 Prednisolone 1% Ophth Drops 75 Drops/5 Ml Bottle LEFTEYE 1 drops DAILY JUUJ Administration Prednisone 5 mg 07/20/24 09:00 07/25/24 08:26 Prednisone 5 Mg Tablet PO 5 mg DAILY JUJU Administration Sodium Chloride 10 ml 07/19/24 21:13 Sodium Chloride Flush 0.9% 10 Ml Syringe IVP PRN PRN NEEDED PER PROVIDER ORDERS Sodium Chloride 10 ml 07/20/24 01:00 07/25/24 08:28 Sodium Chloride Flush 0.9% 10 Ml Syringe IVP 10 ml 0100,0900,1700 JUJU Administration Tamsulosin HCl 0.4 mg 07/20/24 09:00 07/25/24 08:26 Tamsulosin 0.4 Mg Capsule PO 0.4 mg DAILY JUJU Administration Objective Vital Signs/Intake & Output Reviewed Vital Signs: Yes Vital Signs: Vital Signs x48h Temp Pulse Resp BP Pulse Ox 07/25/24 15:00 79 13 100/55 L 93 07/25/24 14:00 82 18 96/52 L 92 07/25/24 14:00 85 16 96/52 L 91 L 07/25/24 13:00 87 15 114/54 L 92 07/25/24 12:00 85 14 108/54 L 94 07/25/24 11:00 85 14 101/52 L 92 07/25/24 11:00 85 12 101/52 L 91 L 07/25/24 10:00 36.9 C 86 17 99/51 L 91 L 07/25/24 09:00 85 18 101/57 L 96 07/25/24 08:00 83 14 111/56 L 95 Intake & Output: Intake & Output 07/22/24 07/23/24 07/24/24 07/25/24 23:59 23:59 23:59 23:59 Intake Total 3040 / 3040 205 / 2053 2481 / 2481 441 / 441 Output Total 695 / 695 900 / 900 276 / 276 750 / 750 Balance 2345 / 2345 1153 / 1153 2205 / 2205 -309 / -309 Weight (kg) 67 kg Objective General Appearance: positive No acute distress and Alert Eyes Bilateral: positive Normal inspection ENT: positive ENT inspection nml Neck: positive Nml inspection Respiratory: positive Chest non-tender, No respiratory distress and Breath sounds nml Cardiovascular: positive Regular rate & rhythm Abdomen: positive Non-tender Rectal: positive Bloody stool (passed some blood this AM. has not continued) Back: positive Nml inspection Skin: positive Color nml Extremities: positive Non-tender and No pedal edema Neurologic/Psychiatric: positive Oriented x3 Lab Results 07/25/24 09:46 07/25/24 04:24 Other Labs: Lab Results x24hrs 07/25/24 07/25/24 07/24/24 Range/Units 09:46 04:24 19:50 WBC 5.4 (4.8-10.8) x10^3/uL RBC 2.91 L (4.70-6.10) 10^6/uL Hgb 8.7 L 9.2 L 8.8 L (14.0-18.0) g/dL Hct 26.3 L 28.3 L (42.0-52.0) % MCV 97.3 H (80.0-94.0) fL MCH 31.6 H (27.0-31.0) pg MCHC 32.5 (32.0-36.0) g/dL RDW 20.4 H (12.0-15.0) % Plt Count 48 L (130-450) 10^3/uL MPV 9.7 (7.4-11.4) fL Neut # (Auto) 4.7 (1.5-6.6) 10^3/uL Lymph # (Auto) 0.3 L (1.5-3.5) 10^3/uL [place] # (Auto) 0.4 (0.0-1.0) 10^3/uL Eos # (Auto) 0.1 (0.0-0.7) 10^3/uL Baso # (Auto) 0.0 (0.0-0.1) 10^3/uL Absolute Nucleated RBC 0.00 x10^3/uL Nucleated RBC % 0.0 /100WBC Sodium 135 (135-145) mmol/L Potassium 4.0 (3.5-4.5) mmol/L Chloride 107 (101-111) mmol/L Carbon Dioxide 22 (21-32) mmol/L Anion Gap 6.0 (6-13) BUN 14 (6-20) mg/dL Creatinine 1.4 H (0.6-1.3) mg/dL Estimated GFR (MDRD) 50 L (>89) Glucose 94 (74-104) mg/dL Calcium 7.4 L (8.5-10.3) mg/dL Magnesium 2.1 (1.7-2.3) mg/dL Assessment/Plan Problem List (1) Acute blood loss anemia: Impression: he has been transfused one unit of RBCs 5/14. 3 units total for this admission. not actively losing blood KS today. (2) Internal and external bleeding hemorrhoids: Impression: POD #1 hemorrhoidectomy. . I have placed this patient on scheduled Miralax, once daily. He needs to have soft and frequent stools to avoid any pressure on the repair. Dr Galicia saw the patient this AM and recommended Lidocaine ointment and sitz baths. He is continuing to have pain, but this is well controlled with scheduled APAP and PRN parenteral narcotics. (3) Ezhey-ua-areukto kidney injury: Impression: looks to be back to baseline. I will continue to check daily BMP Laboratory Tests 07/19/24 07/20/24 07/21/24 17:39 05:20 05:05 Creatinine 2.0 H 1.8 H 1.8 H 07/22/24 07/23/24 07/24/24 05:12 04:30 04:32 Creatinine 1.7 H 1.6 H 1.5 H 07/25/24 04:24 Creatinine 1.4 H (4) Systolic heart failure: Impression: LVEF 41% as of 04/02/2022. Not in acute exacerbation. 07/23/2024: Ordered repeat echo per petrophysical engineer recommendation. Echo done today, but not read. patient was in sinus rhythm this AM when echo was done. he was rate controlled. (5) Diabetes: Impression: Diabetes is listed in his history, but his home med list does not show any antidiabetic agents. A1c 6.6. Glucose has been well-controlled without any insulin. Given his age and health status, A1C 8% acceptable. Would recommend carb restricted diet at home. (6) Acute myeloid leukemia with myelodysplasia-related changes: Impression: Follows Dr. Romero outpatient I will repeat CBC in the AM to monitor. Chemical DVT prophylaxis has been held. Blood transfusion as above- irradiated RBCs. Platelets low. 07/22/24 07/23/24 07/24/24 05:12 04:30 04:32 Plt Count 61 L 73 L 51 L Laboratory Tests 07/25/24 04:24 Plt Count 48 L (7) A-fib: Impression: with RVR.Heart rate controlled and patient is in sinus rhythm. I will continue digoxin which is a new medication for him, 125 mcg daily. I have spent 36 minutes in the care of this patient today. This includes time [id number], review and ordering of diagnostic imaging and laboratory studies and consultation with other providers. Monitoring the patient's signs symptoms, evaluation of medication effectiveness and patient's response to treatment.
--- NOTE | 2024-07-25 17:46 | ECHO Report ---
Version: 1 Study ID: [id number] [id number] Adult Echocardiogram Report Name: JANEE AMBROCIO Study Date: 07/25/2024, 11: 22 AM BP: 101 / 52 mmHg Patient Location: ICU^2301^01 HR: 84 bpm : 1950 (MM/DD/YYYY) Gender: Male Height: 68 in Age: 73 Years Weight: 147.71 lb Reason For Study: Eval CHF/atrial flutter History: Evaluate for CHF / atrial flutter Procedure: A complete two-dimensional transthoracic echocardiogram was performed (2D, M- mode, Doppler and color flow Doppler). Indication: Evaluate cardiac and valve function. Interpretation Summary 1. The left ventricle is normal in size. Global left ventricular systolic function is normal. The visual left ventricular ejection fraction is estimated at 60-65%. 2. The right ventricle is normal size. The right ventricular systolic function is normal. 3. No significant valvular disease. 4. A small pericardial effusion is present. Left Ventricle: The left ventricle is normal in size. Global left ventricular systolic function is normal. The visual left ventricular ejection fraction is estimated at 60 to 65%. No regional wall motion abnormalities are present. Diastolic function could not be accurately assessed due to contradictory data. Right Ventricle: The right ventricle is normal size. The basal right ventricular diameter measured from a right ventricular focused view is 3.9 cm. The right ventricular systolic function is normal. Aortic Valve: The aortic valve is trileaflet. The aortic valve is mildly thickened. Aortic valve sclerosis is present without stenosis. No aortic regurgitation is present. Mitral Valve: The mitral valve leaflets appear thickened, but with normal motion. No evidence of mitral stenosis is seen. There is mild mitral regurgitation. Tricuspid Valve: The tricuspid valve is normal in structure and function. Mild tricuspid regurgitation present. Pulmonic Valve: The pulmonic valve is normal in structure and function. Trace pulmonic valvular regurgitation is present. Left Atrium: The left atrium is mildly dilated. The left atrial volume indexed to body surface area is 37 ml/m2. This refers to the maximal volume measured prior to mitral valve opening. Right Atrium: The right atrium is mildly dilated. The inferior vena cava is normal in diameter (<2.1cm) but collapse <50% with sniff (estimated right atrial pressure 5-10mmHg). Atrial Septum: The interatrial septum appears normal, without evidence of shunt by 2D imaging and color Doppler. The interatrial septum appears intact, without evidence of shunt by 2D imaging and color Doppler. Aorta: The diameter of the ascending aorta is 3.9 cm. The aorta at the sinus of Valsalva measures 3.9cm. Pulmonary Artery: The pulmonary artery systolic pressure, calculated from a peak tricuspid regurgitant velocity in conjunction with an estimated right atrial pressure, is 31 - 36mmHg. Pericardium/Pleural Space: A small pericardial effusion is present. The pericardial effusion is located lateral to the left ventricle. A small to moderate pericardial effusion is present adjacent to the left ventricle. There is no evidence for hemodynamic compromise. CPT Codes: [id number]: Transthoracic Echo with Spectral and Color Doppler. Doppler Measurements & Calculations Ao max P.0 mmHg Ao V2 max: 149.7 cm/sec LV V1 max: 90.5 cm/sec LV V1 max P.3 mmHg LV V1 mean: 60.8 cm/sec LV V1 mean P.81 mmHg LV V1 VTI: 17.7 cm MV A max isrrael: 69.0 cm/sec MV dec time: 0.16 sec MV DVI-pr: 1.13 MV E max isrrael: 78.3 cm/sec PA max P.00 mmHg PA V2 max: 70.8 cm/sec RAP systole: 10.0 mmHg TR max P.5 mmHg TR max isrrael: 252.6 cm/sec MMode/2D Measurements & Calculations Ao root diam: 3.9 cm EDV(MOD-sp4): 91.9 ml EF (est.): 62.0 % ESV(MOD-sp4): 34.6 ml ESV(sp4-el): 58.3 ml Heart Rate: 84.0 BPM Height (metric): 172.7 cm IVSd: 1.00 cm LA A4C-A/L: 18.4 cm² LA dimension: 5.8 cm LA ESV-A/L: 44.8 ml LAV(MOD-sp2): 79.5 ml LAV(MOD-sp4): 82.2 ml LVIDd: 5.0 cm LVIDs: 3.4 cm LVLd ap4: 7.9 cm LVLs ap4: 6.6 cm LVPWd: 1.02 cm RVDd: 3.9 cm Systolic Pressure: 101.0 mmHg Other Measurements & Calculations Ao root diam: 3.9 cm Ao V2 max: 149.7 cm/sec BMI: 22.5 kilograms/m² BSA: 1.80 m² BSA([facility]): 1.79 m² Diastolic Pressure: 52.0 mmHg EDV(MOD-sp4): 91.9 ml EDV(Teich): 116.2 ml EF (est.): 62.0 % EF(MOD-sp4): 62.3 % EF(Teich): 60.4 % ESV(MOD-sp4): 34.6 ml ESV(sp4-el): 58.3 ml ESV(Teich): 46.0 ml FS: 32.3 % Heart Rate: 84.0 BPM Height (metric): 172.7 cm IVSd: 1.00 cm LA A4C-A/L: 18.4 cm² LA dimension: 5.8 cm LA ESV-A/L: 44.8 ml LAV(MOD-sp2): 79.5 ml LAV(MOD-sp4): 82.2 ml LV V1 max: 90.5 cm/sec LV V1 mean: 60.8 cm/sec LV V1 mean P.81 mmHg LVIDd: 5.0 cm LVIDs: 3.4 cm LVLd ap4: 7.9 cm LVLs ap4: 6.6 cm LVPWd: 1.02 cm MV A max isrrael: 69.0 cm/sec MV dec time: 0.16 sec MV DVI-pr: 1.13 MV E max isrrael: 78.3 cm/sec MV E/A: 1.13 PA max P.00 mmHg PA V2 max: 70.8 cm/sec RAP systole: 10.0 mmHg RVDd: 3.9 cm RVSP(TR): 40.5 mmHg SV(MOD-sp4): 57.3 ml Systolic Pressure: 101.0 mmHg TR max P.5 mmHg TR max isrrael: 252.6 cm/sec TV max P.5 mmHg Weight (metric): 67.0 kg Lat E/e': 9.0 Med E/e': 11.4 EDV(MOD-sp2): 67.3 ml EF Mod BP: 62.7 % ESV(MOD-sp2): 25.8 ml EF(MOD-sp2): 61.6 % EF(sp-el): 57.8 % Rg rOtiz MD 07/25/2024, 5: 45 PM Ordering Physician: Ralf Morgan Referring Physician: Evangelist Queen Performed By: Loretta Sanders RDCS
[2024-07-26 04:51] LABS: BASOPHILS % (AUTO) 0.4 %; EOSINOPHILS # (AUTO) 0.1 10^3/uL (0.0-0.7); EOSINOPHILS % (AUTO) 1.4 %; HCT - HEMATOCRIT 25.2 % (42.0-52.0); HGB - HEMOGLOBIN 8.4 g/dL (14.0-18.0); LYMPHOCYTES # (AUTO) 0.2 10^3/uL (1.5-3.5); LYMPHOCYTES % (AUTO) 3.5 %; MEAN CORPUSCULAR HEMOGLOBIN 32.7 pg (27.0-31.0); MEAN CORPUSCULAR HGB CONC 33.3 g/dL (32.0-36.0); MEAN CORPUSCULAR VOLUME 98.1 fL (80.0-94.0); MEAN PLATELET VOLUME 10.5 fL (7.4-11.4); MONOCYTES # (AUTO) 0.4 10^3/uL (0.0-1.0); NEUTROPHILS # (AUTO) 4.4 10^3/uL (1.5-6.6); NEUTROPHILS % (AUTO) 86.7 %; PLT - PLATELET COUNT 53 10^3/uL (130-450); RED BLOOD COUNT 2.57 10^6/uL (4.70-6.10); RED CELL DISTRIBUTION WIDTH 20.7 % (12.0-15.0); WHITE BLOOD COUNT 5.1 x10^3/uL (4.8-10.8)
[2024-07-26 05:09] LABS: CALCIUM 7.5 mg/dL (8.5-10.3); CREATININE 1.4 mg/dL (0.6-1.3); POTASSIUM 4.2 mmol/L (3.5-4.5)
[2024-07-26 05:18] LABS: PLATELET ESTIMATE, MANUAL DECREASED (<130,000) (NORMAL)
[2024-07-26] MEDS: traMADol 50 MG TABLET PO PRN (13:47)
--- NOTE | 2024-07-26 14:16 | PT Plan of Care ---
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 Medical History (Updated 07/24/24 @ 15:11 by Diana Fraga DO) Anal fissure Sigmoid diverticulitis Hemorrhoid Hematuria Mass of right testicle (01/20/23) Severe muscle deconditioning (08/19/22) Sepsis following a procedure, sequela (08/22/22) Cachexia (08/22/22) BPH with lower urinary tract symptoms without urinary obstruction (04/27/23) Antineoplastic chemotherapy induced pancytopenia (08/22/22) Septic shock Surgical History (Updated 01/18/24 @ 22:41 by Charisse Santamaria MD) 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 PMH extensive, please see medical record for full history. Cleared for PT eval, POD#2. Pt lives in ADA home with his , amb with FWW and has some assistance for ADLs from . Upon PT eval, pt reports moderate pain around incision during mobility but overall able to transfer with SBA and tolerates session well without increased pain. Amb with FWW and CGA x70'. Gait with step through pattern and reduced toe clearance, more pronounced during turns. Hypotensive but asymptomatic. Pt presenting with deconditioning, weakness, and lower than baseline mobility. Pt reports he was walking up to 400' at home prior to this hospitalization. Plan to progress gait training and endurance during acute stay. When medically clear, PT rec dc home with HHPT/OT/bathaide/RN to help manage post op pain and mobility progression. However, if pt and pt's feel unable to meet his current care needs, SNF placement may be appropriate given his medical complexity. Goals Improve bed mobility to: Independent Improve supine to sit to: Independent Improve sit to stand to: Independent Improve pivot transfer ability Independent to: Improve sit to supine to: Independent Improve gait ability to: SBA Assistive Device Used: Front Wheeled Walker PT Plan of Care Frequency 1-2x/day Duration Until goals are met Discharge Recommendations Discharge Location SNF v home Support/Services Needed Home Health P.T. Other has FWW Transport Needs at Discharge Personal vehicle Other POV if able to tolerate sitting with rectal incision pain. otherwise BLS d/t recent surgery
--- NOTE | 2024-07-26 14:19 | OT Plan of Care ---
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) H/O left knee surgery H/O stem cell transplant H/O knee surgery Medical History (Updated 07/24/24 @ 15:11 by Diana Fraga DO) Anal fissure Sigmoid diverticulitis Hemorrhoid Hematuria Mass of right testicle (01/20/23) Severe muscle deconditioning (08/19/22) Sepsis following a procedure, sequela (08/22/22) Cachexia (08/22/22) BPH with lower urinary tract symptoms without urinary obstruction (04/27/23) Antineoplastic chemotherapy induced pancytopenia (08/22/22) Septic shock Assessment Assessment Pt is a 73-year-old male PMH significant for Danitza's granulomatosis, cancer of the left eye , AML s/p stem cell transplant 2 years ago, hematuria, stage II right kidney cancer s/p radiation so he is off Eliquis, A-fib, cardiac arrest, AICD, thrombocytopenia, for which she sees Dr. Romero. Adm with acute anemia (hgb 6.1) requiring transfusion (x3). Surgical consult. S/ p EUA, complex hemorrhoidectomy, POD#2. No recurring or acute rectal bleeding at this time per examination. Met supine in bed, A&Ox4, willing to participate with therapy. Performed supine to sit, sit to stand, and ambulation 100ft CGA using RW- Slowed, guarded pace. MIN A donning pants prior to ambulation and MIN A perineal hygiene and wound care- A from if able. Overall presents with decreased endurance, activity tolerance and ADL status. Will benefit from cont OT services during acute stay. Rec d/ c SNF vs home with HHOT/PT and nursing for medical care pending wifes ability to meet care for ADL and medical management. Goals - Activities of Daily Living Improve Upper Extremity Modified Independent Dressing to: Improve Lower Extremity Modified Independent Dressing to: Improve Grooming/Hygiene to: Modified Independent Improve Bathing to: Modified Independent Improve Toileting to: Modified Independent Plan Treatment Frequency 1x/day Duration Until discharge -Discharge Recommendations Discharge Location Long-Term Facility Transport Needs at Discharge Wheelchair van
--- NOTE | 2024-07-26 18:51 | PROVIDER PROGRESS NOTE ---
Subjective Prog Note Date Prog Note Date: 07/26/24 Subjective Subjective: He was able to walk in the halls with PT today. recommendation was home with home health. patient does not want home health, he and his feel that they can manage at home alone. The house is well equipped. Current Medications Current Medications Current Medications: Current Medications Generic Name Dose Route Start Last Admin Trade Name Freq PRN Reason Stop Dose Admin Atorvastatin Calcium 80 mg 07/20/24 09:00 07/26/24 08:21 Atorvastatin 40 Mg Tablet PO 80 mg DAILY JUJU Administration Carboxymethylcellulose 1 drops 07/20/24 12:00 07/26/24 08:23 Carboxymethylcellulose Ophth Drops LEFTEYE 1 drops BID JUJU Administration Cyanocobalamin 1,000 mcg 07/21/24 09:00 07/26/24 08:21 Cyanocobalamin 500 Mcg Tablet PO 1,000 mcg DAILY JUJU Administration Digoxin 125 mcg 07/24/24 09:00 07/26/24 08:21 Digoxin 125 Mcg Tablet PO 125 mcg DAILY JUJU Administration Docusate Sodium 250 - 500 mg 07/27/24 09:00 Docusate Sodium 250 Mg Capsule PO DAILY JUJU Fluticasone Propionate 1 sprays 07/20/24 21:00 07/26/24 08:22 Fluticasone Nasal [place] SHENA 1 spr BID JUJU Administration Hydromorphone HCl 0.5 mg 07/24/24 20:39 07/26/24 08:18 Hydromorphone 0.5 Mg/0.5 Ml Syringe IVP 0.5 mg Q2H PRN Administration Severe Pain (Level 7-10) Acetaminophen 1,000 mg in 100 mls @ 400 mls/hr 07/24/24 20:00 07/26/24 12:14 Acetaminophen IV Infused Q8H JUJU Infusion Lactobacillus Rhamnosus 1 cap 07/20/24 12:00 07/26/24 08:21 Lactobacillus Rhamnosus Gg Capsule PO 1 cap DAILY JUJU Administration Lidocaine 1 applic 07/25/24 08:57 07/26/24 08:36 Lidocaine Ointment 5% 35.44 Gm Tube TOP 1 applic QID PRN Administration rectal pain Melatonin 3 mg 07/21/24 00:31 07/25/24 20:39 Melatonin 3 Mg Tablet PO 3 mg QPM PRN Administration sleep Mirtazapine 15 mg 07/24/24 21:00 07/25/24 20:39 Mirtazapine 15 Mg Tablet PO 15 mg QPM JUJU Administration Multi-Ingred Cream/Lotion/Oil/Oint 1 applic 07/20/24 12:00 07/26/24 08:22 Mineral Oil/Petrolat Ophth Oint LEFTEYE 1 drops BID JUJU Administration Ofloxacin 1 drops 07/20/24 21:00 07/25/24 21:01 Ofloxacin 0.3% Ophth Drops LEFTEYE 1 drops QPM JUJU Administration Ondansetron HCl 4 mg 07/19/24 21:13 07/22/24 13:29 Ondansetron Odt 4 Mg Tablet TL 4 mg Q6HR PRN Administration Nausea / Vomiting Ondansetron HCl 4 mg 07/19/24 21:13 07/22/24 14:04 Ondansetron 4 Mg/2 Ml Vial IVP 4 mg Q6HR PRN Administration Nausea / Vomiting Pantoprazole Sodium 40 mg 07/23/24 09:00 07/26/24 06:21 Pantoprazole 40 Mg Tablet PO 40 mg QDAC JUJU Administration Polyethylene Glycol 17 gm 07/25/24 09:00 07/26/24 08:22 Polyethylene Glycol 3350 17 Gm Packet PO 17 gm DAILY JUJU Administration Prednisolone 1 drops 07/20/24 12:00 07/26/24 08:22 Prednisolone 1% Ophth Drops 75 Drops/5 Ml Bottle LEFTEYE 1 drops DAILY JUJU Administration Prednisone 5 mg 07/20/24 09:00 07/26/24 08:25 Prednisone 5 Mg Tablet PO 5 mg DAILY JUJU Administration Senna 8.6 - 17.2 mg 07/27/24 09:00 Senna 8.6 Mg Tablet PO DAILY JUJU Sodium Chloride 10 ml 07/19/24 21:13 Sodium Chloride Flush 0.9% 10 Ml Syringe IVP PRN PRN NEEDED PER PROVIDER ORDERS Sodium Chloride 10 ml 07/20/24 01:00 07/26/24 16:14 Sodium Chloride Flush 0.9% 10 Ml Syringe IVP 10 ml 0100,0900,1700 JUJU Administration Tamsulosin HCl 0.4 mg 07/20/24 09:00 07/26/24 08:21 Tamsulosin 0.4 Mg Capsule PO 0.4 mg DAILY JUJU Administration Tramadol HCl 50 mg 07/26/24 11:35 07/26/24 13:47 Tramadol 50 Mg Tablet PO 50 mg Q4HR PRN Administration Moderate Pain (Level 4-6) Objective Vital Signs/Intake & Output Reviewed Vital Signs: Yes Vital Signs: Vital Signs x48h Temp Pulse Pulse Pulse Resp BP BP 07/26/24 17:00 37.2 C 76 20 108/56 L 07/26/24 14:15 85 92 122/65 07/26/24 13:00 75 13 94/51 L 07/26/24 11:15 85 92 122/65 07/26/24 11:00 78 15 106/65 BP BP Pulse Ox 07/26/24 17:00 97 07/26/24 14:15 105/66 100/60 07/26/24 13:00 96 07/26/24 11:15 105/66 100/60 07/26/24 11:00 97 Intake & Output: Intake & Output 07/23/24 07/24/24 07/25/24 07/26/24 23:59 23:59 23:59 23:59 Intake Total 2052 / 2052 2481 / 2481 441 / 441 320 / 320 Output Total 900 / 900 276 / 276 1200 / 1200 100 / 100 Balance 1153 / 1153 2205 / 2205 -759 / -759 220 / 220 Weight (kg) 67 kg Objective General Appearance: positive No acute distress and Alert Eyes Bilateral: positive Normal inspection ENT: positive ENT inspection nml Neck: positive Nml inspection Respiratory: positive Chest non-tender, No respiratory distress and Breath sounds nml Cardiovascular: positive Regular rate & rhythm Abdomen: positive Non-tender Rectal: positive Bloody stool (passed some blood this AM. has not continued) Back: positive Nml inspection Skin: positive Color nml Extremities: positive Non-tender and No pedal edema Neurologic/Psychiatric: positive Oriented x3 Lab Results 07/26/24 04:00 07/26/24 04:00 Other Labs: Lab Results x24hrs 07/26/24 07/26/24 07/26/24 Range/Units 04:00 04:00 04:00 WBC 5.1 (4.8-10.8) x10^3/uL RBC 2.57 L (4.70-6.10) 10^6/uL Hgb 8.4 L (14.0-18.0) g/dL Hct 25.2 L (42.0-52.0) % MCV 98.1 H (80.0-94.0) fL MCH 32.7 H (27.0-31.0) pg MCHC 33.3 (32.0-36.0) g/dL RDW 20.7 H (12.0-15.0) % Plt Count 53 L (130-450) 10^3/uL MPV 10.5 (7.4-11.4) fL Neut # (Auto) 4.4 (1.5-6.6) 10^3/uL Lymph # (Auto) 0.2 L (1.5-3.5) 10^3/uL [place] # (Auto) 0.4 (0.0-1.0) 10^3/uL Eos # (Auto) 0.1 (0.0-0.7) 10^3/uL Baso # (Auto) 0.0 (0.0-0.1) 10^3/uL Absolute Nucleated RBC 0.00 x10^3/uL Nucleated RBC % 0.0 /100WBC Platelet Estimate DECREASED (<130,000) (NORMAL) RBC Morph Micro Appear 1+ OVALOCYTES 1+ ACANTHOCYTES 1+ ANISOCYTOSIS (NORMAL) Sodium 136 (135-145) mmol/L Potassium 4.2 (3.5-4.5) mmol/L Chloride 106 (101-111) mmol/L Carbon Dioxide 25 (21-32) mmol/L Anion Gap 5.0 L (6-13) BUN 15 (6-20) mg/dL Creatinine 1.4 H (0.6-1.3) mg/dL Estimated GFR (MDRD) 50 L (>89) Glucose 109 H (74-104) mg/dL Calcium 7.5 L (8.5-10.3) mg/dL Assessment/Plan Problem List (1) Acute blood loss anemia: Impression: he has been transfused one unit of RBCs 514. 3 units total for this admission. not actively losing blood OR today. There has been occasional bloody dc from his rectum. he is on scheduled miralax. no BM since surgery, but copious stool at the time of OR. He is eating, but not eating large amounts. Laboratory Tests 07/24/24 07/25/24 07/25/24 19:50 04:24 09:46 Hgb 8.8 L 9.2 L 8.7 L (2) Internal and external bleeding hemorrhoids: Impression: POD #2 hemorrhoidectomy. . I have placed this patient on scheduled Miralax, once daily. He needs to have soft and frequent stools to avoid any pressure on the repair. Dr Galicia recommended Lidocaine ointment and sitz baths. He is continuing to have pain, but this is well controlled with scheduled APAP and tramadol orally. he is weaning off IV dilaudid. (3) [id number]-[id number] kidney injury: Impression: looks to be back to baseline. I will continue to check daily BMP Laboratory Tests 07/19/24 07/20/24 07/21/24 17:39 05:20 05:05 Creatinine 2.0 H 1.8 H 1.8 H 07/22/24 07/23/24 07/24/24 05:12 04:30 04:32 Creatinine 1.7 H 1.6 H 1.5 H 07/25/24 04:24 Creatinine 1.4 H Laboratory Tests 07/26/24 04:00 Creatinine 1.4 H (4) Systolic heart failure: Impression: LVEF 41% as of 04/02/2022. Not in acute exacerbation. He has been rate controlled in SR Echo 07/25: 1. The left ventricle is normal in size. Global left ventricular systolic function is normal. The visual left ventricular ejection fraction is estimated at 60-65%. 2. The right ventricle is normal size. The right ventricular systolic function is normal. 3. No significant valvular disease. 4. A small pericardial effusion is present.(no hemodynamic compromise) (5) Diabetes: Impression: Diabetes is listed in his history, but his home med list does not show any antidiabetic agents. A1c 6.6. Glucose has been well-controlled without any insulin. Given his age and health status, A1C 8% acceptable. Would recommend carb restricted diet at home. (6) Acute myeloid leukemia with myelodysplasia-related changes: Impression: Follows Dr. Romero outpatient I will repeat CBC in the AM to monitor. Chemical DVT prophylaxis has been held. Blood transfusion as above- irradiated RBCs. Platelets low. 07/22/24 07/23/24 07/24/24 05:12 04:30 04:32 Plt Count 61 L 73 L 51 L Laboratory Tests 07/25/24 04:24 Plt Count 48 L Laboratory Tests 07/26/24 04:00 Plt Count 53 L (7) A-fib: Impression: with RVR.Heart rate controlled and patient is in sinus rhythm. I will continue digoxin which is a new medication for him, 125 mcg daily. Discussed disposition with his today. He would like to go home he does not want home health. His Lacy is comfortable with this. He will discharge to home tomorrow, assuming no further drop in his H&H or worsening of his renal function.. I have spent 38 minutes in the care of this patient today. This includes time [id number], review and ordering of diagnostic imaging and laboratory studies and consultation with other providers. Monitoring the patient's signs symptoms, evaluation of medication effectiveness and patient's response to treatment.
[2024-07-27 06:03] LABS: BASOPHILS % (AUTO) 0.2 %; EOSINOPHILS # (AUTO) 0.1 10^3/uL (0.0-0.7); EOSINOPHILS % (AUTO) 1.6 %; LYMPHOCYTES # (AUTO) 0.2 10^3/uL (1.5-3.5); LYMPHOCYTES % (AUTO) 4.6 %; MEAN CORPUSCULAR HEMOGLOBIN 31.7 pg (27.0-31.0); MEAN CORPUSCULAR VOLUME 99.2 fL (80.0-94.0); MEAN PLATELET VOLUME 10.5 fL (7.4-11.4); MONOCYTES # (AUTO) 0.3 10^3/uL (0.0-1.0); MONOCYTES % (AUTO) 6.1 %; NEUTROPHILS # (AUTO) 4.3 10^3/uL (1.5-6.6); NEUTROPHILS % (AUTO) 86.9 %; PLT - PLATELET COUNT 52 10^3/uL (130-450); RED BLOOD COUNT 2.52 10^6/uL (4.70-6.10); RED CELL DISTRIBUTION WIDTH 20.7 % (12.0-15.0)
[2024-07-27 06:14] LABS: PHOSPHORUS 1.4 mg/dL (2.5-5.0)
[2024-07-27 06:15] LABS: SLIDE REVIEW? Indicated
[2024-07-27 06:19] LABS: CALCIUM 4.6 mg/dL (8.5-10.3); CREATININE 0.8 mg/dL (0.6-1.3); POTASSIUM 2.7 mmol/L (3.5-4.5)
[2024-07-27 06:29] LABS: PLATELET ESTIMATE, MANUAL DECREASED (<130,000) (NORMAL); PLATELET MORPHOLOGY NORMAL APPEARANCE (NORMAL); WBC MORPHOLOGY (MULTIPLE) NORMAL APPEARANCE (NORMAL)
[2024-07-27 08:00] LABS: CALCIUM 7.5 mg/dL (8.5-10.3); CREATININE 1.4 mg/dL (0.6-1.3); POTASSIUM 4.1 mmol/L (3.5-4.5)
[2024-07-27] MEDS: DOCUSATE SODIUM 250 MG CAPSULE PO SCH (08:23)
[2024-07-27] MEDS: SENNA 8.6 MG TABLET PO SCH (08:23)
[2024-07-27] MEDS: NEUTRA-PHOS 250 MG TABLET PO SCH (08:28)
[2024-07-27 08:40] VITALS: BP 116/59; TEMP 98.8; O2SAT 96
--- NOTE | 2024-07-27 12:15 | Discharge Summary ---
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 Romero. He was at his normal state of health until today, when his noticed that he had bled onto the toilet seat. When asked about any symptoms, he did report that he feels much more tired than normal, and that he gets short of breath with activity. In the ER, lab work revealed a hemoglobin of 7.5. It had been 8.3 on 07/10/2024. He was typed and screened for transfusion, but there was a delay on getting blood because ideally he would need CMV negative irradiated blood. ER discussed his case with pathology, and given that there is no CMV negative irradiated blood for him in this state or in [place], normal irradiated blood could be given. Surgery was contacted by ER provider. Surgery reports that he will need overnight observation to trend his hemoglobin. Surgery states that if any further bleeding were to develop, he will need transfer to a facility that has IR. This was all discussed with patient and family, and they are agreeable to stay here for observation. Hospitalist was contacted for observation HOSPITAL COURSE Hospital Course: He was brought into the hospital and his hemoglobins were monitored. He received several units of PRBCs. He converted into atrial flutter with a pulse rate of 120 and we attempted rate control with multiple drugs at the direction of cardiology. He responded, finally, to digoxin load. He had more rectal bleeding, so he underwent hemorrhoidectomy on 07/24/2024. He is being discharged home to follow-up with his PCP. He has an appointment with [facility] cardiology, so that he can transition his care to them instead of [facility] ALLERGIES Allergies Allergy/AdvReac Type Severity Reaction Status Date / Time No Known Drug Allergies Allergy Verified 07/19/24 17:22 MEDICATIONS Ambulatory Orders Medication Instructions Recorded Confirmed ofloxacin 0.3 % eye drops 1 drp LEFTEYE QPM 09/19/23 0 07/19/24 prednisolone acetate 1 % eye 1 drp LEFTEYE DAILY 09/1807/19/24 drops,suspension Temporary Disabled Placard 01/18/24 06/27/24 atorvastatin 80 mg tablet 80 mg PO QDAY #90 tabs 01/1707/19/24 pantoprazole 40 mg tablet,delayed 40 mg PO DAILY #90 t abs 01/18/24 07/19/24 release prednisone 5 mg tablet 5 mg PO QDAY #90 tabs 07/19/24 carboxymethylcellulose sodium 0.5 1 drp ophthalmic (ey e) BID 06/02/24 07/20/24 % eye drops melatonin 1 mg tablet 1 mg PO HS PRN sleep 5 07/20/24 white petrolatum-mineral oil 94 1 applic ophthalmic (e ye) BID 06/02/24 07/20/24 %-3 % eye ointment (Systane Nighttime) magnesium glycinate 665 mg PO QPM 07/11/2407/20 mecobalamin (vitamin B12) 5,000 5,000 mcg PO QDAY 05/04/0607/19/24 mcg chewable tablet zinc sulfate 50 mg zinc (220 mg) 50 mg PO QDAY 5 07/19/24 capsule (Orazinc) fluticasone propionate 50 2 spray inhalation BID #16 g tanner 07/17/24 07/19/24 mcg/actuation nasal spray,suspension mirtazapine 15 mg tablet 15 mg PO QPM 07/19/24 Lactobacillus acidophilus 10 10,000 mmu cells PO DAILY 07/20/24 07/20/24 billion cell capsule (Probacap) tamsulosin 0.4 mg capsule 0.4 mg PO QPM 07/20/2407/20 digoxin 125 mcg (0.125 mg) tablet 125 mcg PO DAILY 30 days #30 tabs 07/27/24 tramadol 50 mg tablet 50 mg PO Q4HR PRN Moderate P ain 07/27/24 (Level 4-6) #20 tabs PHYSICAL EXAM AT DISCHARGE Vital Signs: Vital Signs x48h Temp Pulse Resp BP Pulse Ox 07/27/24 08:39 37.1 C 72 17 116/59 L 96 General Appearance: positive No acute distress and Alert Eyes Bilateral: positive Other (Eye patch on left) Respiratory: positive Chest non-tender and No respiratory distress Cardiovascular: positive Regular rate & rhythm Peripheral Pulses: positive 2+ Abdomen: positive Non-tender Skin: positive Color nml Extremities: positive Non-tender Neurologic/Psychiatric: positive Oriented x3 LABS 07/27/24 05:45 07/27/24 07:28 FOLLOW UP Follow Up: With PCP, cardiology TIME SPENT Time Spent in Discharge (Minutes): 35 Discharge Plan Discharge Patient Disposition: Home, Self Care Condition: Fair Prescriptions: New digoxin 125 mcg (0.125 mg) Tablet 125 mcg PO DAILY 30 Days Qty: 30 0RF tramadol 50 mg Tablet 50 mg PO Q4HR PRN (Reason: Moderate Pain (Level 4-6)) Qty: 20 0RF Continued prednisone 5 mg tablet 5 mg PO QDAY Qty: 90 3RF fluticasone propionate 50 mcg/actuation spray,suspension 2 spray inhalation BID Qty: 16 3RF ofloxacin 75 DROPS/5 ML drops 1 drp LEFTEYE QPM prednisolone acetate 75 DROPS/5 ML drops,suspension 1 drp LEFTEYE DAILY mirtazapine 15 mg tablet 15 mg PO QPM Probacap 10 billion cell capsule 10,000 mmu cells PO DAILY tamsulosin 0.4 mg capsule 0.4 mg PO QPM (DME) Temporary Disabled Placard Misc See Rx Instructions .Route Rx Instructions: As directed atorvastatin 80 mg tablet 80 mg PO QDAY Qty: 90 3RF pantoprazole 40 mg tablet,delayed release (DR/EC) 40 mg PO DAILY Qty: 90 3RF carboxymethylcellulose sodium 0.5 % drops 1 drp ophthalmic (eye) BID Rx Instructions: left eye melatonin 1 mg tablet 1 mg PO HS PRN (Reason: sleep) Systane Nighttime 94-3 % ointment 1 applic ophthalmic (eye) BID Rx Instructions: LEFT EYE mecobalamin (vitamin B12) 5,000 mcg tablet,chewable 5,000 mcg PO QDAY magnesium glycinate 118 mg magnesium capsule 665 mg PO QPM Patient Comments: one tab 665 mg at bedtime zinc sulfate [Orazinc] 50 mg zinc (220 mg) capsule 50 mg PO QDAY Discontinued amiodarone 200 mg tablet 200 mg PO DAILY 90 Days Qty: 90 1RF Activity Restrictions/Additional Instructions: DIET - You may resume your normal diet if there is no nausea or vomiting. You may want to avoid spicy, greasy, or heavy foods today to minimize gas. - If nausea or vomiting occurs, don't eat or drink anything for one hour. Then start drinking small amounts of clear liquids. Later, add crackers, gradually building up to your usual diet. ACTIVITY INSTRUCTIONS * No lifting >15lb for 6 wks * Wash the area with warm soap and water twice daily and after bowel movements. * Use the anesthetic ointment as often as desired to help with pain control. * Apply ice to the area as often as tolerated for the first 72 hours to help with pain and swelling. * Expect some bloody drainage. DRESSING CARE * Feel free to bathe in warm water as often as you desire. You may sit and soak if you wish. ADDITIONAL DISCHARGE INSTRUCTIONS * Please remember to take a stool softener at least twice daily to avoid constipation. You can always decrease the amount if your stools become overly soft. MEDICATIONS * Take acetaminophen 650 mg every 6 hours as needed for pain. ANESTHESIA PRECAUTIONS Anesthesia and medications given during surgery remain in your body up to 24 hours. This may slow reaction time and/or decrease coordination. FOR THE NEXT 24 HOURS: - Have a responsible person with you - Avoid any activity that requires you to be alert and coordinated - DO NOT DRIVE a motor vehicle for 24 hours or as long as you are taking opoid pain medication - Do not drink alcoholic beverages - Do not smoke unattended Patient Date Escort Date RN Date Diet: Regular Health Concerns: You came into the hospital because you were having lower GI bleeding. This initially resolved, but your stay was extended because of atrial flutter. We discussed your case with cardiology, and they recommended that we discontinue your amiodarone and switch you to a medication called digoxin. Please read the handout regarding what to look for while on digoxin. You did go to the OR for hemorrhoidectomy, and you report to me that you have had no more bleeding since then. I would like for you to hold off on anticoagulant medications until otherwise directed as you are still at increased risk of bleeding. Please follow-up with your PCP and go to your cardiology appointment at [facility] Print Language: Salvadorean Patient Instructions: Surgery Anesthesia After, Digoxin, Sitz Bath Stand Alone Forms: PCP List Follow-up Care: Luis Ivey FNP [Primary Care Provider] - Diana Fraga DO [Provider Admit Priv/Credential] - (2-3 weeks)
== END 2024-07-27 13:50 | disposition home or self-care (01) | DRG 988 ==
LOC: MS2 17:16 → ED 17:16 → MS2 21:47 → ICU 07-22 13:27
PROVIDERS: ADMIT Nurse Practitioner Acute Care; ATTEND Nurse Practitioner Acute Care
DX: C92.00 Acute myeloblastic leukemia, not having achieved remission; I48.20 Chronic atrial fibrillation, unspecified; Z85.840 Personal history of malignant neoplasm of eye; E11.22 Type 2 diabetes mellitus with diabetic chronic kidney disease; N17.9 Acute kidney failure, unspecified; Z95.810 Presence of automatic (implantable) cardiac defibrillator; K64.8 Other hemorrhoids; I50.22 Chronic systolic (congestive) heart failure; I95.2 Hypotension due to drugs; D69.6 Thrombocytopenia, unspecified; K57.30 Diverticulosis of large intestine without perforation or abscess without bleeding; I48.92 Unspecified atrial flutter; N18.30 Chronic kidney disease, stage 3 unspecified; K62.5 Hemorrhage of anus and rectum; A63.0 Anogenital (venereal) warts; D62 Acute posthemorrhagic anemia; Z86.74 Personal history of sudden cardiac arrest; K64.4 Residual hemorrhoidal skin tags; T46.2X5A Adverse effect of other antidysrhythmic drugs, initial encounter; C64.1 Malignant neoplasm of right kidney, except renal pelvis; R00.0 Tachycardia, unspecified; I48.0 Paroxysmal atrial fibrillation; Y92.230 Patient room in hospital as the place of occurrence of the external cause